=== PATIENT | female | born 1980 | race Caucasian/White ===

== ENCOUNTER 2018-01-29 12:15 | Emergency (ER) | payer MEDICARE, SELFPAY ==
[2018-01-29 12:21] VITALS: BP 112/67; PULSE 81; RESP 16; TEMP 37.1; O2SAT 97
--- NOTE | 2018-01-29 12:28 | W.ED.GENAD ---
Discharge Plan Discharge Details Chief Complaint: Urinary Primary Care Provider: Maury Ware ED Provider: Jaya Barcenas Home Meds and New Rx's Prescriptions: No Action metformin 500 MG tablet 500 mg PO BID RF: 0 fluoxetine [Prozac] 40 MG capsule 40 mg PO DAILY RF: 0 albuterol sulfate [Proventil HFA] 200 PUFF HFA aerosol inhaler 2 puff Inhalation Q4H PRN PRNRF: 0 acetaminophen-codeine [Tylenol-Codeine #3] 1 TAB tablet 1 tab PO BID PRNRF: 0 promethazine 25 MG tablet 25 mg PO PRN PRNRF: 0 baclofen 10 MG tablet 1 tab PO QID PRNRF: 0 polyethylene glycol 3350 527 GM powder 17 gm PO BID Qty: 1 RF: 0 Medical Decision Making 37-year-old female presents with 2 days of burning and frequency of urination. She is pleasant, interactive, afebrile and well-appearing. Her exam is reassuring. Differential diagnosis would include acute cystitis versus a sending urinary tract infection. Patient referred for urinalysis which is concentrated and contaminated. Her history is consistent with developing acute cystitis and I will treat her with a course of antibiotics and Pyridium. She understands course of treatment as well as return and follow-up precautions. Stable for outpatient management at this time HPI General Mode of arrival: ambulatory. Date/Time Provider Initiated Documentation: 01/29/18 12:17. Limitations to Documentation: no limitations. Information obtained by: patient. History of Present Illness 37 year old F presents to the emergency department with the chief complaint of Dysuria, described as moderate, Quality is described as burning, and is localized to the pelvis and genitals. Patient reports no radiation. Patient started experiencing this day(s) and it has been intermittent. No exacerbating factors reported . Patient notes no other symptoms.. Patient did receive the following treatments prior to arrival, none HPI Narrative: 37-year-old female with a gradual onset over 2 days time of burning and urgency with urination. No flank pain, fever, vomiting. She states that she has otherwise been well Related Data Home Medications Medication Instructions Recorded Confirmed metformin 500 mg PO BID 07/12/12 01/29/18 fluoxetine [Prozac] 40 mg PO DAILY 10/20/12 01/29/18 albuterol sulfate [Proventil HFA] 2 puff INHALATION Q4H PRN PRN 09/26/16 01/29/18 acetaminophen-codeine 1 tab PO BID PRN 01/23/17 11/01/17 [Tylenol-Codeine #3] promethazine 25 mg PO PRN PRN 01/23/17 01/29/18 baclofen 1 tab PO QID PRN 11/01/17 01/29/18 polyethylene glycol 3350 17 gm PO BID #1 btl 11/03/17 01/29/18 Previous Rx's Medication Instructions Recorded polyethylene glycol 3350 17 gm PO BID #1 btl 11/03/17 Allergies Allergy/AdvReac Type Severity Reaction Status Date / Time cephalexin monohydrate Allergy Severe Anaphylaxsi Verified 01/29/18 12:32 [From Keflex] s nitrofurantoin Allergy Severe Anaphylaxsi Verified 01/29/18 12:32 [From Macrobid] s Sulfa (Sulfonamide Allergy Severe Anaphylaxsi Verified 01/29/18 12:32 Antibiotics) s topiramate [From Topamax] Allergy Severe Anaphylaxsi Verified 01/29/18 12:32 s ibuprofen Allergy Mild Hives Verified 01/29/18 12:32 Review of Systems Review of Systems 6 systems reviewed and otherwise negative PFSH Social History Smoking/Tobacco Use Status: Never Exam Narrative Exam Narrative: GEN: awake, alert, oriented 3. Pleasant, well groomed, interactive. HEAD: Normocephalic, atraumatic ENT: Mucous membranes moist, oropharynx unremarkable, External ear exam unremarkable EYES: PERRL, EOMI NECK: Full ROM, no BOUCHRA, no menigismus CHEST/RESP: Nontender, clear to auscultation bilateral, no wheeze/rhonchi/rales CARDIOVASCULAR: RRR, no murmur, rub ivy. 2+ Rad pulse bilateral ABDOMEN: Soft, minimal suprapubic tenderness to palpation without rebound or guarding, no mass. +Bowel sounds. No flank tenderness to percussion EXT: Full ROM, no edema, no rash Neuro: Grossly normal neurologic exam, conversant, interactive. Psych: Speech fluent, thoughts congruent, affect normal
[2018-01-29 12:33] LABS: Bilirubin Negative (Negative); Blood Trace-intact (Negative); Clarity Clear; Glucose Negative (Negative); Ketones Negative (Negative); Leukocyte Esterase Negative (Negative); Nitrite Negative (Negative); Specific Gravity >= 1.030 (1.005-1.025); Urobilinogen 0.2 EU/dL (Up TO 0.2)
[2018-01-29 12:41] LABS: Bacteria Negative HPF (Negative); C & S Indicated? No; Casts Negative LPF (Negative); Crystals Negative HPF (Negative); Epithelial Cells Many HPF (Negative); Mucus Moderate (Negative); RBC 0-2 (0-2); WBC Negative HPF (0-5)
== END 2018-01-29 13:00 | disposition home or self-care (01) ==
LOC: ER 13:08
PROVIDERS: Emergency Provider Emergency Medicine; PCP Internal Medicine Sleep Medicine
DX: N30.00 Acute cystitis without hematuria (principal)
CPT/HCPCS: 81025; 99283; 81003; 81015

== ENCOUNTER 2018-05-24 09:15 | Emergency (ER) | payer MEDICARE, SELFPAY ==
[2018-05-24 09:30] VITALS: BP 125/82; PULSE 88; RESP 16; TEMP 36.9; O2SAT 98
[2018-05-24 09:39] LABS: Bilirubin Negative (Negative); Blood Large (Negative); Clarity Clear; Glucose Negative (Negative); Ketones Negative (Negative); Leukocyte Esterase Moderate (Negative); Nitrite Negative (Negative); Specific Gravity <= 1.005 (1.005-1.025); Urobilinogen 0.2 EU/dL (Up TO 0.2); pH 6.5 (5-8)
--- NOTE | 2018-05-24 09:39 | ED.GENADUL_ITS ---
Discharge Plan Disposition Patient Disposition: HOME Condition: Good Discharge Details Chief Complaint: Urinary Clinical Impression: UTI (urinary tract infection) Primary Care Provider: Vesta Madden ED Provider: Bill Dobson Home Meds and New Rx's Prescriptions: New levofloxacin 500 mg tablet 500 mg PO DAILY Qty: 14 RF: 0 No Action metformin 500 MG tablet 500 mg PO BID RF: 0 fluoxetine [Prozac] 40 MG capsule 40 mg PO DAILY RF: 0 Proventil HFA 200 PUFF HFA aerosol inhaler 2 puff Inhalation Q4H PRN PRNRF: 0 acetaminophen-codeine [Tylenol-Codeine #3] 1 TAB tablet 1 tab PO BID PRNRF: 0 promethazine 25 MG tablet 25 mg PO PRN PRNRF: 0 baclofen 10 MG tablet 1 tab PO QID PRNRF: 0 polyethylene glycol 3350 527 GM powder 17 gm PO BID PRNRF: 0 Discharge Instructions Instructions: Urinary Tract Infection in Women (ED) Additional Instructions: Please take the medication as directed. If you notice any worsening of your symptoms, or any new symptoms such as vomiting, diarrhea, fever, chills, shortness of breath, chest pain, numbness, weakness, or fainting , please return immediately to the emergency department for reevaluation. Please follow up with your primary care provider as soon as possible for reassessment and reevaluation. As always, it was a pleasure participating in your medical care today. Referrals: Maury Ware [ NON-[facility] STAFF PHYSICIAN] - Medical Decision Making This is a very pleasant 38-year-old female who presents with signs and symptoms consistent with urinary tract infection. For the last week she has had increased frequency, mild burning, mild pinkness in her urine. She denies any arely fever or chills. She denies any vomiting or diarrhea. She does not want anything for pain at this time. Patient states that this feels exactly like her previous urinary tract infections that she has had before. She has multiple allergies but has tolerated fluoroquinolones well. She denies any personal history of kidney stones. Signs and symptoms appear clinically consistent with urinary tract infection. We will evaluate urinalysis for potential UTI. 10 AM Patient's laboratory workup demonstrates negative nitrites, but positive leukocyte esterase, RBC of 10-20 and a WBC of 10-20. The patient signs and symptoms and urinalysis are clinically consistent with a urinary tract infection and clinically inconsistent with a stone, severe pyelonephritis, or other acute abdominal process. [facility] I have extensively reviewed the treatment plan and discharge instructions with the patient. I have addressed all patient concerns at this time. The patient was made aware of what symptoms to monitor for that would warrant a return to the emergency department. Discussed the plan with the patient, they demonstrate verbal understanding and agreement with our assessment and plan at this time. HPI General Date/Time Provider Initiated Documentation: 05/24/18 09:18 . HPI Narrative: This is a 38-year-old female with a past medical history of small bowel obstruction, incisional hernia of the anterior abdominal wall, and previous urinary tract infections who presents today for signs and symptoms concerning for UTI. The patient states that for the last week she has had increase in urinary frequency, mild burning, hematuria. She denies any technical fever, she denies any abdominal pain, vomiting, or diarrhea. She denies a history of kidney stones. She states that the urine is slightly pink, but she denies any arely hematuria. She has no other complaints or modifying factors at this time. She has not taken any Tylenol or Motrin. Related Data Home Medications Medication Instructions Recorded Confirmed metformin 500 mg PO BID 07/12/12 05/24/18 fluoxetine [Prozac] 40 mg PO DAILY 10/20/12 05/24/18 Proventil HFA 2 puff INHALATION Q4H PRN PRN 09/26/16 05/24/18 acetaminophen-codeine 1 tab PO BID PRN 01/23/17 05/24/18 [Tylenol-Codeine #3] promethazine 25 mg PO PRN PRN 01/23/17 05/24/18 baclofen 1 tab PO QID PRN 11/01/17 05/24/18 levofloxacin 500 mg PO DAILY #14 tab 05/24/18 polyethylene glycol 3350 17 gm PO BID PRN 05/24/18 05/24/18 Previous Rx's Medication Instructions Recorded levofloxacin 500 mg PO DAILY #14 tab 05/24/18 Allergies Allergy/AdvReac Type Severity Reaction Status Date / Time cephalexin monohydrate Allergy Severe Anaphylaxsi Verified 05/24/18 09:33 [From Jotky] s nitrofurantoin Allergy Severe Anaphylaxsi Verified 05/24/18 09:33 [From Macrobid] s Sulfa (Sulfonamide Allergy Severe Anaphylaxsi Verified 05/24/18 09:33 Antibiotics) s topiramate [From Topamax] Allergy Severe Anaphylaxsi Verified 05/24/18 09:33 s ibuprofen Allergy Mild Hives Verified 05/24/18 09:33 General Stated Complaint: Urinary NICOLE: 3 Review of Systems Review of Systems All systems reviewed & are unremarkable except as noted in HPI and below PFSH Social History Smoking/Tobacco Use Status: Never Exam Narrative Exam Narrative: 1.Const: Well-nourished, Well-developed, appearing stated age 2.Eyes: PERRL, no conjunctival injection, and symmetrical lids. 3.ENT: Atraumatic external nose and ears. Moist MM. Neck: Symmetric, trachea midline, No thyromegaly. 4.CVS: +S1/S2, No murmurs or gallops. Peripheral pulses 2+ and equal in all extremities. Brisk capillary refill in all extremities. 5.RESP: Unlabored respiratory effort. Clear to auscultation bilaterally. No wheezes rales or rhonchi 6.GI: Soft, Nontender/Nondistended, No hepatosplenomegaly. No guarding or rebound. Minimal left CVA tenderness, no right CVA tenderness. No evidence of an acute abdomen. Minimal pressure on palpation of the pelvis. 7.MSK: Normocephalic/Atraumatic, Extremities w/o deformity or ttp No cyanosis or clubbing, Normal movement of all extremities 8.Skin: Warm, Dry. No rashes or lesions. 9.Neuro: [facility] psychiatrist II-XII grossly intact. Sensation grossly intact, no focal neurologic deficits. 10.Psych: (AAO) x3. Appropriate mood and affect Course Vital Signs Temperature 36.9 C 05/24/18 09:30 Pulse 88 05/24/18 09:30 Respiratory Rate 16 05/24/18 09:30 Blood Pressure 125/82 05/24/18 09:30 Pulse Oximetry 98 05/24/18 09:30 Temperature 36.9 C 05/24/18 09:30 Temperature Source Oral 05/24/18 09:30 Pulse 88 05/24/18 09:30 Respiratory Rate 16 05/24/18 09:30 Blood Pressure 125/82 05/24/18 09:30 Pulse Oximetry 98 05/24/18 09:30 Oxygen Delivery Method Room Air 05/24/18 09:30 Oxygen Flow Rate 0 05/24/18 09:30 Pain Level 8 05/24/18 09:30
[2018-05-24 09:54] LABS: Bacteria Few HPF (Negative); C & S Indicated? No/Sq. Contamination; Casts Negative LPF (Negative); Crystals Negative HPF (Negative); Epithelial Cells Many HPF (Negative); Mucus Trace (Negative); Other Cells Negative (Negative)
[2018-05-24 10:07] VITALS: BP 111/73; PULSE 85; RESP 15; TEMP 37.2; O2SAT 95
== END 2018-05-24 10:09 | disposition home or self-care (01) ==
LOC: ER 09:41
PROVIDERS: Emergency Provider Student in an Organized Health Care Education/Training Program; PCP Nurse Practitioner Family
DX: N39.0 Urinary tract infection, site not specified (principal); Z87.440 Personal history of urinary (tract) infections
CPT/HCPCS: 99283; 81003; 81015

== ENCOUNTER 2018-07-18 07:20 | Emergency (ER) | payer MEDICARE, SELFPAY ==
[2018-07-18 07:24] VITALS: BP 129/82; PULSE 102; RESP 20; TEMP 36.8; O2SAT 98
--- NOTE | 2018-07-18 07:26 | DI.CT_ITS ---
SYMPTOM/DIAGNOSIS: TRAUMA, ABD/UPPER BACK/CHEST/NECK PAIN CERVICAL SPINE CT: Multiple contiguous axial images of the cervical spine were obtained. Sagittal and coronal reformatted images were evaluated on the Siemens work station. There is straightening of the normal cervical lordosis. This may be due to muscle spasm or patient positioning. No acute fractures or subluxations are seen. The prevertebral soft tissues are unremarkable. IMPRESSION: No acute fractures or subluxations in the cervical spine. NONCONTRAST HEAD CT: Comparison is made with 03/20/16. 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 This finding is stable. There is also again noted a ventriculoperitoneal shunt in place. No acute intracranial hemorrhage or midline shift or mass effect is present. There is no evidence of a calvarial fracture. The visualized paranasal sinuses are clear. The mastoid air cells are well pneumatized. IMPRESSION: No acute intracranial process. The findings were discussed with the ER on the date of the examination. CHEST/ABDOMEN AND PELVIC CT: CT scan of the chest, abdomen and pelvis was performed following the uneventful administration of intravenous contrast material. Comparison is made with 11/01/17. ABDOMEN AND PELVIS: The liver is normal in size. There are a few tiny hypodense lesions in the liver. They are too small for further characterization but likely reflect small cysts. No suspicious hepatic mass is seen. The portal, superior mesenteric and splenic veins are patent. The gallbladder is negative. There is no biliary ductal dilatation. The pancreas is unremarkable as are the spleen and adrenal glands. The kidneys show normal and symmetric enhancement. No evidence of a solid renal mass or obstruction. The urinary bladder is intact. The reproductive organs are unremarkable. The abdominal aorta is of normal caliber and intact. No aneurysmal dilatation is seen. There is a trace amount of free fluid in the pelvis which is likely physiologic. No pneumoperitoneum is identified. The bowel shows no evidence of obstruction or inflammation. There is again seen infiltration in the root of the mesentery. This appears grossly unchanged compared to 11/01/17. This may represent confluent adenopathy. No fracture is identified. Ventriculoperitoneal shunt tubing is again noted. IMPRESSION: No evidence of an acute abdominal or pelvic organ injury. No acute fracture is identified. CHEST: The thoracic aorta is of normal caliber. Heart size is within normal limits. No significant pericardial effusion is seen. No significant thoracic adenopathy is present. No pleural effusion or pneumothorax is identified. No acute infiltrates are seen in the lungs. The tracheobronchial tree is unremarkable. No fracture is identified. IMPRESSION: No evidence of acute thoracic injury. The findings were discussed the ER on the date of the examination.
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
[2018-07-18] MEDS: fentaNYL 100 MCG/2 ML VIAL 50 MCG IVP (07:37)
[2018-07-18] MEDS: Normal Saline Flush 10 ML SYR IVP ×2 (07:38→09:32)
[2018-07-18 07:48] LABS: Abs Immature Grans 0.01 k/cumm (0.0-0.09); Absolute Basophil Count 0.04 k/cumm (0.0-0.2); Absolute Eosinophil Count 0.25 k/cumm (0.0-0.7); Absolute Lymphocyte Count 1.15 k/cumm (1.2-3.4); Absolute Monocyte Count 0.75 k/cumm (0.11-0.7); Absolute Neutrophil Count 4.23 k/cumm (1.2-6.7); Basophils % 0.6; Eosinophils % 3.9; HCT 42.6 % (36.0-46.0); HGB 13.9 g/dL (12.0-15.5); Immature Grans % 0.2; Lymphocytes % 17.9; Mean Corp. HGB Concentration 32.6 g/dL (32.0-36.0); Mean Corpuscular Hemoglobin 29.1 pg (27.0-33.0); Mean Corpuscular Volume 89.3 fL (80-95); Mean Platelet Volume 10.2 fL (8.0-11.0); Monocytes % 11.7; Neutrophils % 65.7; Platelet Count 262 x1000/uL (130-400); RBC 4.77 m/cumm (4.00-5.20); RBC Distribution Width 12.5 % (11.7-14.6); White Blood Cell Count 6.43 k/cumm (4.4-10.8)
[2018-07-18] MEDS: Omnipaque 350 MG/ML 100 ML BTL IJ (07:58)
[2018-07-18 08:01] LABS: PTT Activated 21.9 sec (21.0-31.4); Prothrombin Time 10.3 sec (9.3-11.0)
[2018-07-18 08:13] LABS: ALT 95 U/L (12-78); AST 50 U/L (15-37); Albumin 3.5 g/dL (3.4-5.0); Alkaline Phosphatase 125 U/L (46-116); BUN 12 mg/dL (7-18); Bilirubin, Total 0.3 mg/dL (0.2-1.0); CREATININE 0.88 mg/dL (0.55-1.02); Calcium 8.6 mg/dL (8.5-10.1); Chloride 105 mmol/L (98-107); Glucose 105 mg/dL (70-100); Lipase 186 U/L (73-393); Magnesium 1.7 mg/dL (1.8-2.4); Potassium 3.8 mmol/L (3.5-5.1); Sodium 141 mmol/L (136-145)
[2018-07-18 08:20] VITALS: BP 135/89; PULSE 103; O2SAT 97
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
--- NOTE | 2018-07-18 09:01 | NUR.NOTE ---
Pertinent report received from Jose THOMAS. Financial Coach assumes care of Ms. Moya at 0900. Patient alert, skin warm/dry/pink. No WOB. Assisted onto bedpan per her request. Awaiting CT results.Nursing Note:
[2018-07-18 09:16] VITALS: BP 134/84; PULSE 84; RESP 18; TEMP 36.9; O2SAT 96
[2018-07-18 09:18] VITALS: BP 134/84; PULSE 84; RESP 18; TEMP 36.9; O2SAT 96
[2018-07-18 09:30] LABS: Troponin I < 0.02 ng/mL (0.00-0.06)
[2018-07-18] MEDS: Acetaminophen 325 MG TAB 650 MG PO (09:31)
[2018-07-18 10:10] VITALS: BP 127/74; PULSE 94; RESP 22; TEMP 36.8; O2SAT 94
[2018-07-18 10:14] VITALS: BP 127/74; PULSE 94; RESP 22; TEMP 36.8; O2SAT 94
--- NOTE | 2018-07-18 11:13 | NUR.NOTE ---
Addendum entered by Claudine Gale 07/18/18 11:14: Please note: Patient ambulated with teletypewriter operator in ED farias to back farias double doors and back at 0945. Gait steady, she denied difficulties, denied dizziness. Walked independently with standby assist only from teletypewriter operator. Original Note: Nursing Note:
== END 2018-07-18 10:18 | disposition home or self-care (01) ==
PROVIDERS: Emergency Medicine; Emergency Provider Physician Assistant; PCP Nurse Practitioner Family
DX: S16.1XXA Strain of muscle, fascia and tendon at neck level, initial encounter (principal); M54.5 Low back pain; R10.814 Left lower quadrant abdominal tenderness; R07.89 Other chest pain; R51 Headache; M25.551 Pain in right hip; M25.552 Pain in left hip; V47.5XXA Car driver injured in collision with fixed or stationary object in traffic accident, initial encounter; Z98.2 Presence of cerebrospinal fluid drainage device; E11.42 Type 2 diabetes mellitus with diabetic polyneuropathy
CPT/HCPCS: 36415; 74177; 80053; 80076; 83690; 93005; 96375; 99285; 70450; 71260; 72125; 83735; 84484; 85025; 85610; 85730; 93010; 99284; J3010; J3490

== ENCOUNTER 2018-08-09 12:23 | Emergency (ER) | payer MEDICARE, SELFPAY ==
[2018-08-09 12:30] VITALS: BP 119/75; PULSE 82; RESP 18; TEMP 36.6; O2SAT 95
--- NOTE | 2018-08-09 12:54 | W.ED.GENAD ---
Discharge Plan Disposition Patient Disposition: HOME Condition: Fair Discharge Details Chief Complaint: DentalOral Clinical Impression: Dental infection Primary Care Provider: Vesta Madden ED Provider: Cady Gale Home Meds and New Rx's Prescriptions: New penicillin V potassium 500 mg tablet 500 mg PO QID Qty: 28 RF: 0 Continued metformin 500 MG tablet 500 mg PO BID RF: 0 fluoxetine [Prozac] 40 MG capsule 40 mg PO DAILY RF: 0 albuterol sulfate [Proventil HFA] 200 PUFF HFA aerosol inhaler 2 puff Inhalation Q4H PRN PRNRF: 0 acetaminophen-codeine [Tylenol-Codeine #3] 1 TAB tablet 1 tab PO BID PRNRF: 0 promethazine 25 MG tablet 25 mg PO PRN PRNRF: 0 baclofen 10 MG tablet 1 tab PO QID PRNRF: 0 polyethylene glycol 3350 527 GM powder 17 gm PO BID PRNRF: 0 Discharge Instructions Instructions: Dental Abscess (ED) Additional Instructions: Encourage hydration. Tylenol and ibuprofen as needed for discomfort. Penicillin as prescribed. If you have any reaction please stop this immediately. Even if symptoms improve, please take the entire course. He will need definitive care with a dentist, attached is a list of local dentist. Please call to schedule appointment as soon as possible. If you develop any new or worsening symptoms seek care urgently once again Referrals: Vesta Madden [Primary Care Provider] - Discharge Data Discharge Date/Time-TO BE ENTERED AT DEPARTURE: 08/09/18 13:12 Medical Decision Making Patient is a 38-year-old female presenting today with chief complaint of dental pain at the #8 tooth that has been there over the past 4 days. She reports the pain is progressive and getting worse. She states that she had a fever last night with a T-max of 101 ?F. On exam, she appears nontoxic. She does have a physical carry at the affected tooth with pain on both the lingual and buccal side of the tooth with palpation. Slight erythema along the buccal side. No evidence of an abscess is noted. Patient has not been evaluated by dentist in quite some time. We will give her a list of local dentists. While patient does lift Keflex as an anaphylactic allergy, she reports that she has had penicillin without any reaction. Will prescribe Penicillin. I encouraged hydration. Advised Tylenol and/or ibuprofen as needed for discomfort. She understands she will need definitive care with a dentist. Advised that she seek care with any new or worsening symptoms more urgently. All of her questions and concerns were addressed and she is in agreement this plan HPI General Mode of arrival: ambulatory. Date/Time Provider Initiated Documentation: 08/09/18 12:53. Limitations to Documentation: no limitations. Information obtained by: patient and RN notes reviewed. History of Present Illness 38 year old F presents to the emergency department with the chief complaint of upper front dental pain, described as moderate, with intensity rated at 5. Quality is described as aching, and is localized to the mouth. Patient reports no radiation. Patient started experiencing this day(s) (4) and it has been constant. No relieving factors improve symptom(s), Eating worsens symptoms . Patient notes fever/chills (reports feeling warm yesterday). Patient did receive the following treatments prior to arrival, none Related Data Home Medications Medication Instructions Recorded Confirmed metformin 500 mg PO BID 07/12/12 07/18/18 fluoxetine [Prozac] 40 mg PO DAILY 10/20/12 07/18/18 albuterol sulfate [Proventil HFA] 2 puff INHALATION Q4H PRN PRN 09/26/16 07/18/18 acetaminophen-codeine 1 tab PO BID PRN 01/23/17 07/18/18 [Tylenol-Codeine #3] promethazine 25 mg PO PRN PRN 01/23/17 07/18/18 baclofen 1 tab PO QID PRN 11/01/17 07/18/18 polyethylene glycol 3350 17 gm PO BID PRN 05/24/18 07/18/18 penicillin V potassium 500 mg PO QID #28 tab 08/09/18 Previous Rx's Medication Instructions Recorded penicillin V potassium 500 mg PO QID #28 tab 08/09/18 Allergies Allergy/AdvReac Type Severity Reaction Status Date / Time cephalexin monohydrate Allergy Severe Anaphylaxsi Verified 07/18/18 07:27 [From Keflex] s nitrofurantoin Allergy Severe Anaphylaxsi Verified 07/18/18 07:27 [From Macrobid] s Sulfa (Sulfonamide Allergy Severe Anaphylaxsi Verified 07/18/18 07:27 Antibiotics) s topiramate [From Topamax] Allergy Severe Anaphylaxsi Verified 07/18/18 07:27 s ibuprofen Allergy Mild Hives Verified 07/18/18 07:27 General Stated Complaint: DentalOral NICOLE: 4 Review of Systems Constitutional Reports as per HPI, Denies chills, Denies fatigue, Reports fever(s), Denies headache(s) and Denies poor appetite Eyes Denies change in vision and Denies irritation ENT Reports as per HPI, Reports dental pain, Denies dysphagia, Denies dizziness, Denies dry mouth, Denies ear discharge, Denies otalgia, Reports facial pain, Denies headache(s), Denies hoarseness, Denies lip swelling, Denies nasal congestion, Denies odynophagia and Denies sore throat Cardiovascular Reports as per HPI and Denies chest pain Respiratory Reports as per HPI and Denies cough Gastrointestinal Reports as per HPI, Denies dysphagia, Denies nausea, Denies odynophagia and Denies vomiting Integumentary/Breasts Reports as per HPI, Denies erythema, Denies rash and Denies skin pain Neurologic Reports as per HPI, Denies dizziness and Denies headache(s) Endocrine Denies fatigue Allergic/Immunologic Denies lip swelling [facility] Social History Smoking/Tobacco Use Status: Never Alcohol Intake: never Drug use: Never Substance use type: does not use Do you feel safe at home: Yes Do you feel safe in your relationship?: Yes Exam Const General: cooperative, healthy appearing, comfortable, no acute distress, well developed and well groomed Nutritional Appearance: average body habitus and well nourished Orientation: alert and awake [facility] Head: normal to inspection, normocephalic and atraumatic Ears: hearing grossly normal bilaterally, external ears normal and TM's normal bilaterally General nose exam: external nose normal and nares normal Face and sinus: normal facial exam, sinuses nontender and face symmetric Mouth: oral mucosae normal, lip normal, tongue normal, oropharynx normal, moist mucous membranes, no audible dysphonia and no drooling Teeth and gingiva: abnormal dentition and caries (noted at the #8 tooth with erythema along buccal surface) Throat: posterior oropharynx normal, tonsils normal and uvula midline Eyes General: appearance normal, both eyes and all related structures Neck Neck: normal visual inspection, full ROM, no lymphadenopathy, supple and no anterior neck swelling Resp Effort & Inspection: normal respiratory effort, able to speak in complete sentences and no respiratory distress Auscultation: clear to auscultation bilaterally, no rales, no rhonchi and no wheezes Cardio Rate: regular rate Rhythm: regular rhythm Heart Sounds: S1 normal and S2 normal Skin General skin exam: no rashes or lesions noted Trauma: no lacerations or abrasions Neuro General: alert and awake Cognition: normal cognition Speech: speech normal Gait: normal gait Psych Appearance: grossly normal and well kempt Mental Status: mental status grossly normal Speech and Movement: speech and movement normal Course Vital Signs Temperature 36.6 C 08/09/18 12:30 Pulse 82 08/09/18 12:30 Respiratory Rate 18 08/09/18 12:30 Blood Pressure 119/75 08/09/18 12:30 Pulse Oximetry 95 08/09/18 12:30 Temperature 36.6 C 08/09/18 12:30 Temperature Source Temporal Artery Scan 08/09/18 12:30 Pulse 82 08/09/18 12:30 Respiratory Rate 18 08/09/18 12:30 Blood Pressure 119/75 08/09/18 12:30 Blood Pressure Position Sitting 08/09/18 12:30 Pulse Oximetry 95 08/09/18 12:30 Oxygen Delivery Method Room Air 08/09/18 12:30 Oxygen Flow Rate 0 08/09/18 12:30 Pain Level 6 08/09/18 12:30
--- NOTE | 2018-08-09 13:01 | ED.GENADUL_ITS ---
Discharge Plan Disposition Patient Disposition: HOME Condition: Fair Discharge Details Chief Complaint: DentalOral Clinical Impression: Dental infection Primary Care Provider: Vesta Madden ED Provider: Cady Gale Home Meds and New Rx's Prescriptions: New penicillin V potassium 500 mg tablet 500 mg PO QID Qty: 28 RF: 0 Continued metformin 500 MG tablet 500 mg PO BID RF: 0 fluoxetine [Prozac] 40 MG capsule 40 mg PO DAILY RF: 0 albuterol sulfate [Proventil HFA] 200 PUFF HFA aerosol inhaler 2 puff Inhalation Q4H PRN PRNRF: 0 acetaminophen-codeine [Tylenol-Codeine #3] 1 TAB tablet 1 tab PO BID PRNRF: 0 promethazine 25 MG tablet 25 mg PO PRN PRNRF: 0 baclofen 10 MG tablet 1 tab PO QID PRNRF: 0 polyethylene glycol 3350 527 GM powder 17 gm PO BID PRNRF: 0 Discharge Instructions Instructions: Dental Abscess (ED) Additional Instructions: Encourage hydration. Tylenol and ibuprofen as needed for discomfort. Penicillin as prescribed. If you have any reaction please stop this immediately. Even if symptoms improve, please take the entire course. He will need definitive care with a dentist, attached is a list of local dentist. Please call to schedule appointment as soon as possible. If you develop any new or worsening symptoms seek care urgently once again Referrals: Vesta Madden [Primary Care Provider] - Discharge Data Discharge Date/Time-TO BE ENTERED AT DEPARTURE: 08/09/18 13:12 Medical Decision Making Patient is a 38-year-old female presenting today with chief complaint of dental pain at the #8 tooth that has been there over the past 4 days. She reports the pain is progressive and getting worse. She states that she had a fever last night with a T-max of 101 ?F. On exam, she appears nontoxic. She does have a physical carry at the affected tooth with pain on both the lingual and buccal side of the tooth with palpation. Slight erythema along the buccal side. No evidence of an abscess is noted. Patient has not been evaluated by dentist in quite some time. We will give her a list of local dentists. While patient does lift Keflex as an anaphylactic allergy, she reports that she has had penicillin without any reaction. Will prescribe Penicillin. I encouraged hydration. Advised Tylenol and/or ibuprofen as needed for discomfort. She understands she will need definitive care with a dentist. Advised that she seek care with any new or worsening symptoms more urgently. All of her questions and concerns were addressed and she is in agreement this plan HPI General Mode of arrival: ambulatory . Date/Time Provider Initiated Documentation: 08/09/18 12:53 . Limitations to Documentation: no limitations . Information obtained by: patient and RN notes reviewed . History of Present Illness 38 year old F presents to the emergency department with the chief complaint of upper front dental pain, described as moderate, with intensity rated at 5. Quality is described as aching, and is localized to the mouth. Patient reports no radiation. Patient started experiencing this day(s) (4) and it has been constant. No relieving factors improve symptom(s), Eating worsens symptoms . Patient notes fever/chills (reports feeling warm yesterday). Patient did receive the following treatments prior to arrival, none Related Data Home Medications Medication Instructions Recorded Confirmed metformin 500 mg PO BID 07/12/12 07/18/18 fluoxetine [Prozac] 40 mg PO DAILY 10/20/12 07/18/18 albuterol sulfate [Proventil HFA] 2 puff INHALATION Q4H PRN PRN 09/26/16 07/18/18 acetaminophen-codeine 1 tab PO BID PRN 01/23/17 07/18/18 [Tylenol-Codeine #3] promethazine 25 mg PO PRN PRN 01/23/17 07/18/18 baclofen 1 tab PO QID PRN 11/01/17 07/18/18 polyethylene glycol 3350 17 gm PO BID PRN 05/24/18 07/18/18 penicillin V potassium 500 mg PO QID #28 tab 08/09/18 Previous Rx's Medication Instructions Recorded penicillin V potassium 500 mg PO QID #28 tab 08/09/18 Allergies Allergy/AdvReac Type Severity Reaction Status Date / Time cephalexin monohydrate Allergy Severe Anaphylaxsi Verified 07/18/18 07:27 [From Keflex] s nitrofurantoin Allergy Severe Anaphylaxsi Verified 07/18/18 07:27 [From Macrobid] s Sulfa (Sulfonamide Allergy Severe Anaphylaxsi Verified 07/18/18 07:27 Antibiotics) s topiramate [From Topamax] Allergy Severe Anaphylaxsi Verified 07/18/18 07:27 s ibuprofen Allergy Mild Hives Verified 07/18/18 07:27 General Stated Complaint: DentalOral NICOLE: 4 Review of Systems Constitutional Reports as per HPI, Denies chills, Denies fatigue, Reports fever(s), Denies headache(s) and Denies poor appetite Eyes Denies change in vision and Denies irritation ENT Reports as per HPI, Reports dental pain, Denies dysphagia, Denies dizziness, Denies dry mouth, Denies ear discharge, Denies otalgia, Reports facial pain, Denies headache(s), Denies hoarseness, Denies lip swelling, Denies nasal congestion, Denies odynophagia and Denies sore throat Cardiovascular Reports as per HPI and Denies chest pain Respiratory Reports as per HPI and Denies cough Gastrointestinal Reports as per HPI, Denies dysphagia, Denies nausea, Denies odynophagia and Denies vomiting Integumentary/Breasts Reports as per HPI, Denies erythema, Denies rash and Denies skin pain Neurologic Reports as per HPI, Denies dizziness and Denies headache(s) Endocrine Denies fatigue Allergic/Immunologic Denies lip swelling [facility] Social History Smoking/Tobacco Use Status: Never Alcohol Intake: never Drug use: Never Substance use type: does not use Do you feel safe at home: Yes Do you feel safe in your relationship?: Yes Exam Const General: cooperative, healthy appearing, comfortable, no acute distress, well developed and well groomed Nutritional Appearance: average body habitus and well nourished Orientation: alert and awake [facility] Head: normal to inspection, normocephalic and atraumatic Ears: hearing grossly normal bilaterally, external ears normal and TM's normal bilaterally General nose exam: external nose normal and nares normal Face and sinus: normal facial exam, sinuses nontender and face symmetric Mouth: oral mucosae normal, lip normal, tongue normal, oropharynx normal, moist mucous membranes, no audible dysphonia and no drooling Teeth and gingiva: abnormal dentition and caries (noted at the #8 tooth with e rythema along buccal surface) Throat: posterior oropharynx normal, tonsils normal and uvula midline Eyes General: appearance normal, both eyes and all related structures Neck Neck: normal visual inspection, full ROM, no lymphadenopathy, supple and no anterior neck swelling Resp Effort & Inspection: normal respiratory effort, able to speak in complete sentences and no respiratory distress Auscultation: clear to auscultation bilaterally, no rales, no rhonchi and no wheezes Cardio Rate: regular rate Rhythm: regular rhythm Heart Sounds: S1 normal and S2 normal Skin General skin exam: no rashes or lesions noted Trauma: no lacerations or abrasions Neuro General: alert and awake Cognition: normal cognition Speech: speech normal Gait: normal gait Psych Appearance: grossly normal and well kempt Mental Status: mental status grossly normal Speech and Movement: speech and movement normal Course Vital Signs Temperature 36.6 C 08/09/18 12:30 Pulse 82 08/09/18 12:30 Respiratory Rate 18 08/09/18 12:30 Blood Pressure 119/75 08/09/18 12:30 Pulse Oximetry 95 08/09/18 12:30 Temperature 36.6 C 08/09/18 12:30 Temperature Source Temporal Artery Scan 08/09/18 12:30 Pulse 82 08/09/18 12:30 Respiratory Rate 18 08/09/18 12:30 Blood Pressure 119/75 08/09/18 12:30 Blood Pressure Position Sitting 08/09/18 12:30 Pulse Oximetry 95 08/09/18 12:30 Oxygen Delivery Method Room Air 08/09/18 12:30 Oxygen Flow Rate 0 08/09/18 12:30 Pain Level 6 08/09/18 12:30
== END 2018-08-09 13:12 | disposition home or self-care (01) ==
PROVIDERS: Emergency Provider Physician Assistant; PCP Nurse Practitioner Family
DX: K04.7 Periapical abscess without sinus (principal)
CPT/HCPCS: 99283

== ENCOUNTER 2018-09-07 10:42 | Emergency (ER) | payer MEDICARE, SELFPAY ==
[2018-09-07 10:45] VITALS: BP 146/89; PULSE 78; RESP 20; TEMP 36.6; O2SAT 99
--- NOTE | 2018-09-07 10:49 | ED.GENADUL_ITS ---
Discharge Plan Disposition Patient Disposition: HOME Condition: Stable Discharge Details Chief Complaint: Urinary Clinical Impression: UTI (urinary tract infection) Primary Care Provider: Vesta Madden ED Provider: Damaris Bishop Home Meds and New Rx's Prescriptions: New ciprofloxacin HCl [Cipro] 250 mg tablet 250 mg PO BID 3 Days Qty: 6 RF: 0 Continued metformin 500 MG tablet 500 mg PO BID RF: 0 fluoxetine [Prozac] 40 MG capsule 40 mg PO DAILY RF: 0 albuterol sulfate [Proventil HFA] 200 PUFF HFA aerosol inhaler 2 puff Inhalation Q4H PRN PRNRF: 0 acetaminophen-codeine [Tylenol-Codeine #3] 1 TAB tablet 1 tab PO BID PRNRF: 0 promethazine 25 MG tablet 25 mg PO PRN PRNRF: 0 baclofen 10 MG tablet 1 tab PO QID PRNRF: 0 polyethylene glycol 3350 527 GM powder 17 gm PO BID PRNRF: 0 Discharge Instructions Instructions: Urinary Tract Infection in Women (ED) Additional Instructions: Take the antibiotics until finished. Follow up with your primary care doctor in 1 week for re-evaluation. Return to the emergency department with any worsening or new concerning symptoms. Discharge Data Discharge Physician: Damaris Bishop Medical Decision Making 38-year-old female presents with dysuria, hematuria, urinary frequency and urgency for the past 4 days. Has a history of UTIs and states this feels similar. Afebrile. Patient appears nontoxic. Texting on phone in room. Urinalysis notes 3-5 WBCs and appears contaminated. An additional sample was obtained and sent for urine culture. Urine test negative. Patient is a history of anaphylaxis to sulfa, Keflex and Macrobid but states she is able to tolerate Cipro. Prescription for Cipro given. Patient instructed to drink plenty of fluids. She is instructed to follow-up with primary care doctor for reevaluation and to return here if worse. Medical Records Medical records reviewed: Yes I reviewed the patient's medical records. Lab Data Lab results reviewed: Yes I reviewed the patient's lab results. 09/07/18 11:23 Urine - Voided Urine Culture - Pending Laboratory Tests Range/Units 09/07/18 10:48 Urine Color (Yellow) Yellow Urine Clarity Clear Urine pH (5-8) 7.0 Ur Specific [place] (1.005-1.025) 1.020 Urine Protein (Negative) mg/dL Negative Urine Ketones (Negative) mg/dL Negative Urine Blood (Negative) Trace-lysed H Urine Nitrite (Negative) Negative Urine Bilirubin (Negative) Negative Urine Urobilinogen (Up TO 0.2) EU/dL 0.2 Ur Leukocyte Esterase (Negative) Trace H Urine RBC (0-2) 5-10 H Urine WBC (0-5) HPF 3-5 Ur Epithelial Cells (Negative) HPF Moderate Urine Crystals (Negative) HPF Negative Urine Bacteria (Negative) HPF Few Urine Casts (Negative) LPF Negative Urine Mucus (Negative) Trace Urine Other (Negative) Moderate renal Ur Culture Indicated? No/sq. contamination Urine Glucose (Negative) mg/dL Negative HPI General Mode of arrival: ambulatory . Date/Time Provider Initiated Documentation: 09/07/18 10:42 . Limitations to Documentation: no limitations . Information obtained by: patient . HPI Narrative: Patient is a 38-year-old female presents with urinary frequency, urgency, dysuria, hematuria, lower abdominal pain for the past 4 days. Patient has a history of urinary tract infection and states symptoms feel similar to that. She denies any fever, vomiting or back pain. Related Data Home Medications Medication Instructions Recorded Confirmed metformin 500 mg PO BID 07/12/12 09/07/18 fluoxetine [Prozac] 40 mg PO DAILY 10/20/12 09/07/18 albuterol sulfate [Proventil HFA] 2 puff INHALATION Q4H PRN PRN 09/26/16 09/07/18 acetaminophen-codeine 1 tab PO BID PRN 01/23/17 09/07/18 [Tylenol-Codeine #3] promethazine 25 mg PO PRN PRN 01/23/17 09/07/18 baclofen 1 tab PO QID PRN 11/01/17 09/07/18 polyethylene glycol 3350 17 gm PO BID PRN 05/24/18 09/07/18 ciprofloxacin HCl [Cipro] 250 mg PO BID 3 Days #6 tab 09/07/18 Previous Rx's Medication Instructions Recorded ciprofloxacin HCl [Cipro] 250 mg PO BID 3 Days #6 tab 09/07/18 Allergies Allergy/AdvReac Type Severity Reaction Status Date / Time cephalexin monohydrate Allergy Severe Anaphylaxsi Verified 09/07/18 10:52 [From Keflex] s nitrofurantoin Allergy Severe Anaphylaxsi Verified 09/07/18 10:52 [From Macrobid] s Sulfa (Sulfonamide Allergy Severe Anaphylaxsi Verified 09/07/18 10:52 Antibiotics) s topiramate [From Topamax] Allergy Severe Anaphylaxsi Verified 09/07/18 10:52 s ibuprofen Allergy Mild Hives Verified 09/07/18 10:52 General Stated Complaint: Urinary NICOLE: 4 Review of Systems Review of Systems All systems reviewed & are unremarkable except as noted in HPI and below Constitutional Reports as per HPI, Denies chills and Denies fever(s) Eyes Denies blurry vision ENT Denies dizziness, Denies sore throat and Denies throat swelling Cardiovascular Denies chest pain and Denies dyspnea Respiratory Denies cough and Denies dyspnea Gastrointestinal Reports abdominal pain, Denies diarrhea and Denies vomiting Genitourinary Reports hematuria, Reports urinary frequency, Reports dysuria, Reports urinary hesitancy and Reports urinary urgency Musculoskeletal Denies back pain and Denies numbness Integumentary/Breasts Denies lesions and Denies rash Neurologic Denies dizziness, Denies focal weakness and Denies numbness Allergic/Immunologic Denies throat swelling PFS Medical History PCOS (polycystic ovarian syndrome) (Acute) Small bowel obstruction (Acute) Asthma (Chronic) Diabetes (Chronic) Migraine (Chronic) Surgical History History of brain surgery (Acute) History of placement of ear tubes (Acute) Social History Smoking/Tobacco Use Status: Never Alcohol Intake: never Drug use: Never Substance use type: does not use Do you feel safe at home: Yes Do you feel safe in your relationship?: Yes Exam Const General: cooperative, healthy appearing and no acute distress HENMT Head: normal to inspection Face and sinus: normal facial exam Eyes General: appearance normal, both eyes and all related structures Neck Neck: normal visual inspection and No submandibular swelling Lymphatic: no lymphadenopathy noted Chest Chest: normal inspection of the chest and no tenderness Resp Effort & Inspection: normal respiratory effort and able to speak in complete sentences Auscultation: clear to auscultation bilaterally Cardio Rate: regular rate Rhythm: regular rhythm GI Inspection: normal to inspection Palpation: soft, not firm, not rigid and nontender Auscultation: normal bowel sounds Back/Spine/Pelvis Back: no CVA tenderness Skin General skin exam: no rashes or lesions noted Neuro General: alert, awake and oriented x3 Cognition: normal cognition Speech: speech normal Motor: muscle tone normal throughout Sensory Exam: no sensory deficits noted Extrem General: normal to inspection, full ROM and no edema Psych Appearance: grossly normal Mental Status: mental status grossly normal Speech and Movement: speech and movement normal Affect: normal affect Course Respiratory Effort Non-Labored 09/07/18 10:45
[2018-09-07 10:56] LABS: Bilirubin Negative (Negative); Blood Trace-lysed (Negative); Clarity Clear; Glucose Negative (Negative); Ketones Negative (Negative); Leukocyte Esterase Trace (Negative); Nitrite Negative (Negative); Urobilinogen 0.2 EU/dL (Up TO 0.2)
[2018-09-07 11:08] LABS: Epithelial Cells Moderate HPF (Negative); Other Cells Moderate Renal (Negative)
[2018-09-07 11:09] LABS: Bacteria Few HPF (Negative); C & S Indicated? No/Sq. Contamination; Casts Negative LPF (Negative); Crystals Negative HPF (Negative); Mucus Trace (Negative)
[2018-09-07 16:49] VITALS: BP 146/89; PULSE 78; RESP 20; TEMP 36.6; O2SAT 99
== END 2018-09-07 11:30 | disposition home or self-care (01) ==
LOC: ER 11:18
PROVIDERS: Emergency Provider Physician Assistant; PCP Nurse Practitioner Family
DX: N39.0 Urinary tract infection, site not specified (principal)
CPT/HCPCS: 99283; 81003; 81015; 87086

== ENCOUNTER 2019-05-17 12:29 | Emergency (ER) | payer MEDICARE, SELFPAY ==
[2019-05-17 12:34] VITALS: BP 133/78; PULSE 99; RESP 14; TEMP 37.1; O2SAT 97
--- NOTE | 2019-05-17 13:39 | ED.GENADUL_ITS ---
Discharge Plan Disposition Patient Disposition: HOME Condition: Stable Discharge Details Chief Complaint: RespSymp Clinical Impression: Sinusitis Primary Care Provider: Vesta Madden ED Provider: Jarvis Orantes Home Meds and New Rx's Prescriptions: New doxycycline hyclate 100 mg tablet 100 mg PO BID Qty: 14 RF: 0 No Action metformin 500 MG tablet 500 mg PO BID RF: 0 fluoxetine [Prozac] 40 MG capsule 40 mg PO DAILY RF: 0 albuterol sulfate [Proventil HFA] 200 PUFF HFA aerosol inhaler 2 puff Inhalation Q4H PRN PRNRF: 0 acetaminophen-codeine [Tylenol-Codeine #3] 1 TAB tablet 1 tab PO BID PRNRF: 0 promethazine 25 MG tablet 25 mg PO PRN PRNRF: 0 baclofen 10 MG tablet 1 tab PO QID PRNRF: 0 polyethylene glycol 3350 527 GM powder 17 gm PO BID PRNRF: 0 Discharge Instructions Instructions: Sinusitis (ED) Medical Decision Making 39 yo female comes in with 10 days of sinus pressure and congestion. Denies fevers, vision changes, rashes, vomit, dyspnea, cough. She has normal tm's, clear rhinorrhea, eomi, does have pain with percussion over maxillary sinuses. Suspect sinusitis and given 10 days of symptoms will tx with abx, advised f/u with pcp and return precautions given Differential Diagnosis Differential Diagnosis: allergies, sinusitis HPI General Mode of arrival: ambulatory . Date/Time Provider Initiated Documentation: 05/17/19 12:39 . Limitations to Documentation: no limitations . Information obtained by: patient . History of Present Illness 39 year old F presents to the emergency department with the chief complaint of sinus pain, described as moderate, and it has been constant. No relieving factors improve symptom(s), No exacerbating factors reported . Patient did receive the following treatments prior to arrival, none Related Data Home Medications Medication Instructions Recorded Confirmed metformin 500 mg PO BID 07/12/12 05/17/19 fluoxetine [Prozac] 40 mg PO DAILY 10/20/12 05/17/19 albuterol sulfate [Proventil HFA] 2 puff INHALATION Q4H PRN PRN 09/26/16 05/17/19 acetaminophen-codeine 1 tab PO BID PRN 01/23/17 05/17/19 [Tylenol-Codeine #3] promethazine 25 mg PO PRN PRN 01/23/17 05/17/19 baclofen 1 tab PO QID PRN 11/01/17 05/17/19 polyethylene glycol 3350 17 gm PO BID PRN 05/24/18 05/17/19 doxycycline hyclate 100 mg PO BID #14 tab 05/17/19 Previous Rx's Medication Instructions Recorded doxycycline hyclate 100 mg PO BID #14 tab 05/17/19 Allergies Allergy/AdvReac Type Severity Reaction Status Date / Time cephalexin monohydrate Allergy Severe Anaphylaxsi Verified 09/07/18 10:52 [From Keflex] s nitrofurantoin Allergy Severe Anaphylaxsi Verified 09/07/18 10:52 [From Macrobid] s Sulfa (Sulfonamide Allergy Severe Anaphylaxsi Verified 09/07/18 10:52 Antibiotics) s topiramate [From Topamax] Allergy Severe Anaphylaxsi Verified 09/07/18 10:52 s ibuprofen Allergy Mild Hives Verified 09/07/18 10:52 General Stated Complaint: RespSymp NICOLE: 4 Review of Systems All systems reviewed & are unremarkable except as noted in HPI and below Constitutional Constitutional: Denies chills, Denies fever(s) and Denies weakness Cardiovascular Cardiovascular: Denies chest pain and Denies dyspnea Respiratory Respiratory: Denies cough and Denies dyspnea Gastrointestinal Gastrointestinal: Denies abdominal pain, Denies nausea and Denies vomiting Genitourinary Genitourinary: Denies dysuria Musculoskeletal Musculoskeletal: Denies joint swelling Neurologic Neurologic: Denies weakness [facility] Social History Smoking/Tobacco Use Status: Never Alcohol Intake: never Drug use: Never Substance use type: does not use Do you feel safe at home: Yes Do you feel safe in your relationship?: Yes Exam Const General: no acute distress Orientation: alert HENMT Head: normal to inspection Ears: external ears normal General nose exam: external nose normal Mouth: moist mucous membranes Eyes General: appearance normal, both eyes and all related structures Neck Neck: normal visual inspection Resp Effort & Inspection: normal respiratory effort and able to speak in complete sentences Cardio Rate: regular rate Skin General skin exam: no rashes or lesions noted Neuro General: alert and oriented x3 Extrem General: normal to inspection Psych Mental Status: mental status grossly normal Course Vital Signs Vital signs: Vital Signs Temperature 37.1 C 05/17/19 12:34 Pulse 99 H 05/17/19 12:34 Respiratory Rate 14 05/17/19 12:34 Blood Pressure 133/78 05/17/19 12:34 Pulse Oximetry 97 05/17/19 12:34 Temperature 37.1 C 05/17/19 12:34 Temperature Source Temporal Artery Scan 05/17/19 12:34 Pulse 99 H 05/17/19 12:34 Respiratory Rate 14 05/17/19 12:34 Respiratory Effort Non-Labored 05/17/19 12:37 Respiratory Depth Normal 05/17/19 12:37 Blood Pressure 133/78 05/17/19 12:34 Blood Pressure Position Sitting 05/17/19 12:34 Pulse Oximetry 97 05/17/19 12:34 Oxygen Delivery Method Room Air 05/17/19 12:34 Oxygen Flow Rate 0 05/17/19 12:34 Pain Level 5 05/17/19 12:34
--- NOTE | 2019-05-17 13:54 | NUR.NOTE ---
patient placed onto pcp referral list Nursing Note:
== END 2019-05-17 13:53 | disposition home or self-care (01) ==
PROVIDERS: Emergency Provider Emergency Medicine; PCP Nurse Practitioner Family
DX: J01.90 Acute sinusitis, unspecified (principal)
CPT/HCPCS: 99283

== ENCOUNTER 2019-07-14 17:50 | Emergency (ER) | payer MEDICARE, SELFPAY ==
[2019-07-14 17:55] VITALS: BP 138/99; PULSE 103; RESP 16; TEMP 37; O2SAT 99
--- NOTE | 2019-07-14 17:55 | ED.GENADUL_ITS ---
Discharge Plan Disposition Patient Disposition: HOME Condition: Stable Discharge Details Chief Complaint: Urinary Clinical Impression: UTI (urinary tract infection) Primary Care Provider: eVsta Madden ED Provider: Damaris Bishop Home Meds and New Rx's Prescriptions: New ciprofloxacin HCl 250 mg tablet 250 mg PO BID 3 Days Qty: 6 RF: 0 phenazopyridine [Pyridium] 200 mg tablet 200 mg PO TID PRN (Reason: pain) Qty: 6 RF: 0 Continued metformin 500 MG tablet 500 mg PO BID RF: 0 fluoxetine [Prozac] 40 MG capsule 40 mg PO DAILY RF: 0 albuterol sulfate [Proventil HFA] 200 PUFF HFA aerosol inhaler 2 puff Inhalation Q4H PRN PRNRF: 0 acetaminophen-codeine [Tylenol-Codeine #3] 1 TAB tablet 1 tab PO BID PRNRF: 0 promethazine 25 MG tablet 25 mg PO PRN PRNRF: 0 baclofen 10 MG tablet 1 tab PO QID PRNRF: 0 polyethylene glycol 3350 527 GM powder 17 gm PO BID PRNRF: 0 Discharge Instructions Instructions: Urinary Tract Infection in Women (ED) Additional Instructions: Take the antibiotics until finished. Take the Pyridium as needed and directed for pain. Follow up with your primary care doctor in 1 week as needed. Return to the emergency department with any worsening or new concerning symptoms such as fever, vomiting, back pain. Discharge Data Discharge Physician: Damaris Bishop Medical Decision Making 39-year-old female with a history of asthma, diabetes, PCOS presents with UTI symptoms for the past 10 days. Denies fever, vomiting or back pain. Urinalysis notes 3-5 WBCs and RBCs with moderate bacteria. Urine sent for culture. We will treat for UTI. She is allergic to Keflex, sulfa and Macrobid. Dose of Cipro given here as well as prescription. Advised to follow up with the primary care doctor for re-evaluation. Usual and customary return precautions given prior to discharge. Medical Records Medical records reviewed: Yes I reviewed the patient's medical records. Lab Data Lab results reviewed: Yes I reviewed the patient's lab results. Labs: 07/14/19 17:58 Urine - Reflex from Ua Urine Culture - Pending Laboratory Tests Range/Units 07/14/19 17:58 Urine Color (Yellow) Yellow Urine Clarity (Clear) Clear Urine pH (5-8) 6.5 Ur Specific [place] (1.005-1.025) 1.025 Urine Protein (Negative) mg/dL Negative Urine Ketones (Negative) mg/dL Negative Urine Blood (Negative) Trace-intact H Urine Nitrite (Negative) Negative Urine Bilirubin (Negative) Negative Urine Urobilinogen (Up TO 0.2) EU/dL 0.2 Ur Leukocyte Esterase (Negative) Trace Urine RBC (0-2) HPF 3-5 H Urine WBC (0-5) HPF 3-5 Ur Epithelial Cells (Negative) HPF Moderate Urine Crystals (Negative) HPF Negative Urine Bacteria (Negative) HPF Moderate Urine Mucus (Negative) Negative Ur Culture Indicated? Yes Urine Glucose (Negative) mg/dL Negative HPI General Mode of arrival: ambulatory . Date/Time Provider Initiated Documentation: 07/14/19 17:51 . Limitations to Documentation: no limitations . Information obtained by: patient . History of Present Illness 39 year old F presents to the emergency department with the chief complaint of Urinary frequency, urgency, dysuria, hematuria, Quality is described as aching, and is localized to the abdomen (lower ). Patient reports no radiation. Patient started experiencing this day(s) (10) and it has been intermittent. No relieving factors improve symptom(s), No exacerbating factors reported . Patient notes denies fever/chills and nausea/vomiting. Patient did receive the following treatments prior to arrival, none Related Data Home Medications Medication Instructions Recorded Confirmed metformin 500 mg PO BID 07/12/12 07/14/19 fluoxetine [Prozac] 40 mg PO DAILY 10/20/12 07/14/19 albuterol sulfate [Proventil HFA] 2 puff INHALATION Q4H PRN PRN 09/26/16 07/14/19 acetaminophen-codeine 1 tab PO BID PRN 01/23/17 07/14/19 [Tylenol-Codeine #3] promethazine 25 mg PO PRN PRN 01/23/17 07/14/19 baclofen 1 tab PO QID PRN 11/01/17 07/14/19 polyethylene glycol 3350 17 gm PO BID PRN 05/24/18 07/14/19 ciprofloxacin HCl 250 mg PO BID 3 Days #6 tab 07/14/19 phenazopyridine [Pyridium] 200 mg PO TID PRN #6 tab 07/14/19 Previous Rx's Medication Instructions Recorded ciprofloxacin HCl 250 mg PO BID 3 Days #6 tab 07/14/19 phenazopyridine [Pyridium] 200 mg PO TID PRN #6 tab 07/14/19 Allergies Allergy/AdvReac Type Severity Reaction Status Date / Time cephalexin monohydrate Allergy Severe Anaphylaxsi Verified 07/14/19 18:02 [From Keflex] s nitrofurantoin Allergy Severe Anaphylaxsi Verified 07/14/19 18:02 [From Macrobid] s Sulfa (Sulfonamide Allergy Severe Anaphylaxsi Verified 07/14/19 18:02 Antibiotics) s topiramate [From Topamax] Allergy Severe Anaphylaxsi Verified 07/14/19 18:02 s ibuprofen Allergy Mild Hives Verified 07/14/19 18:02 General NICOLE: 4 Review of Systems All systems reviewed & are unremarkable except as noted in HPI and below Constitutional Constitutional: Reports as per HPI, Denies chills and Denies fever(s) Eyes Eyes: Denies blurry vision ENT Ears, Nose, Mouth, and Throat: Denies dizziness, Denies sore throat and Denies throat swelling Cardiovascular Cardiovascular: Denies chest pain and Denies dyspnea Respiratory Respiratory: Denies cough and Denies dyspnea Gastrointestinal Gastrointestinal: Denies abdominal pain, Denies diarrhea and Denies vomiting Genitourinary Genitourinary: Reports hematuria, Reports urinary frequency, Reports dysuria and Reports urinary urgency Musculoskeletal Musculoskeletal: Denies back pain and Denies numbness Integumentary/Breasts Skin/Breast: Denies lesions and Denies rash Neurologic Neurologic: Denies dizziness, Denies focal weakness and Denies numbness Allergic/Immunologic Allergic/Immunologic: Denies throat swelling [facility] Social History Smoking/Tobacco Use Status: Never Alcohol Intake: never Drug use: Never Substance use type: does not use Do you feel safe at home: Yes Do you feel safe in your relationship?: Yes Exam Const General: cooperative, healthy appearing and no acute distress HENMT Head: normal to inspection Face and sinus: normal facial exam Eyes General: appearance normal, both eyes and all related structures EOM: EOM intact bilaterally Neck Neck: normal visual inspection and No submandibular swelling Lymphatic: no lymphadenopathy noted Chest Chest: normal inspection of the chest and no tenderness Resp Effort & Inspection: normal respiratory effort and able to speak in complete sentences Auscultation: clear to auscultation bilaterally Cardio Rate: regular rate Rhythm: regular rhythm GI Inspection: normal to inspection Palpation: soft, not firm, not rigid and nontender Auscultation: normal bowel sounds Back/Spine/Pelvis Back: no CVA tenderness Skin General skin exam: no rashes or lesions noted Neuro General: alert, awake and oriented x3 Cognition: normal cognition Speech: speech normal Motor: muscle tone normal throughout Sensory Exam: no sensory deficits noted Extrem General: normal to inspection, full ROM, normal capillary refill, no calf tenderness bilaterally and no edema Psych Appearance: grossly normal Mental Status: mental status grossly normal Speech and Movement: speech and movement normal Affect: normal affect
[2019-07-14 18:05] LABS: Clarity Clear (Clear); Leukocyte Esterase Trace (Negative); Specific Gravity 1.025 (1.005-1.025); pH 6.5 (5-8)
[2019-07-14 18:06] LABS: Bilirubin Negative (Negative); Blood Trace-intact (Negative); Glucose Negative (Negative); Ketones Negative (Negative); Nitrite Negative (Negative); Urobilinogen 0.2 EU/dL (Up TO 0.2)
[2019-07-14 18:12] LABS: Bacteria Moderate HPF (Negative); C & S Indicated? Yes; Crystals Negative HPF (Negative); Epithelial Cells Moderate HPF (Negative); Mucus Negative (Negative)
[2019-07-14] MEDS: Phenazopyridine 100 MG TAB, 2 TABS/BTL PO (18:22)
[2019-07-14] MEDS: Ciprofloxacin 500 MG TAB PO (18:22)
== END 2019-07-14 18:27 | disposition home or self-care (01) ==
LOC: ER 18:18
PROVIDERS: Emergency Provider Physician Assistant; PCP Nurse Practitioner Family
DX: N39.0 Urinary tract infection, site not specified (principal); E11.9 Type 2 diabetes mellitus without complications; Z79.84 Long term (current) use of oral hypoglycemic drugs
CPT/HCPCS: 81025; 99283; 81003; 81015; 87086

== ENCOUNTER 2019-09-23 12:22 | Emergency (ER) | payer MEDICARE, SELFPAY ==
[2019-09-23 12:29] VITALS: BP 137/84; PULSE 87; RESP 16; TEMP 36.6; O2SAT 97
--- NOTE | 2019-09-23 12:45 | ED.GENADUL_ITS ---
Discharge Plan Disposition Patient Disposition: HOME Condition: Serious Discharge Details Chief Complaint: DentalOral Clinical Impression: Dental infection Primary Care Provider: Vesta Madden ED Provider: Tavo Herndon Home Meds and New Rx's Prescriptions: New amoxicillin 875 mg tablet 875 mg PO BID Qty: 20 RF: 0 No Action metformin 500 MG tablet 500 mg PO BID RF: 0 fluoxetine [Prozac] 40 MG capsule 40 mg PO DAILY RF: 0 albuterol sulfate [Proventil HFA] 200 PUFF HFA aerosol inhaler 2 puff Inhalation Q4H PRN PRNRF: 0 acetaminophen-codeine [Tylenol-Codeine #3] 1 TAB tablet 1 tab PO BID PRNRF: 0 polyethylene glycol 3350 527 GM powder 17 gm PO BID PRNRF: 0 esomeprazole magnesium 40 mg capsule,delayed release(DR/EC) 40 mg PO BID RF: 0 lorazepam 0.5 mg tablet 0.5 mg PO PRN PRNRF: 0 Discharge Instructions Instructions: Dental Abscess (ED) Additional Instructions: Amoxicillin as directed. Tylenol as directed [id number]. Cool and/or warm compresses every 2 hours for 20 days. Please watch for new or worsening symptoms and return to the ER for any concerns. Using the list provided, I would like you to establish dental care tomorrow for a follow-up appointment within the next week for definitive dental care. Medical Decision Making Patient who reports a broken tooth, longstanding history, reports few day history of increased pain. She appears well, nontoxic. She is afebrile. There is no obvious pointing abscess. Airway is patent, uvula is midline. Likely a very early dental infection. Will place on amoxicillin and give the dental list so she may call for definitive care tomorrow. Recommend [id number] Tylenol and cool-warm compresses as tolerated. Patient has no additional questions or concerns and is comfortable with this plan. Medical Records Medical records reviewed: Yes I reviewed the patient's medical records. HPI General Mode of arrival: ambulatory . Date/Time Provider Initiated Documentation: 09/23/19 12:23 . Limitations to Documentation: no limitations . Information obtained by: patient . HPI Narrative: 39-year-old female history of depression, diabetes, asthma, reports few day history of left upper dental discomfort. She reports it began and was mild, now is moderate in nature. Has not taken any [id number] medications for discomfort. She tells me that she broke her tooth quite a long time ago but never had it repaired, does not have a dentist. Denies any other symptoms such as headache, ear pain, sore throat, difficulty breathing, cough. Patient has no additional questions or concerns Related Data Home Medications Medication Instructions Recorded Confirmed metformin 500 mg PO BID 07/12/12 09/23/19 fluoxetine [Prozac] 40 mg PO DAILY 10/20/12 09/23/19 albuterol sulfate [Proventil HFA] 2 puff INHALATION Q4H PRN PRN 09/26/16 09/23/19 acetaminophen-codeine 1 tab PO BID PRN 01/23/17 09/23/19 [Tylenol-Codeine #3] polyethylene glycol 3350 17 gm PO BID PRN 05/24/18 09/23/19 amoxicillin 875 mg PO BID #20 tab 09/23/19 esomeprazole magnesium 40 mg PO BID 09/23/19 09/23/19 lorazepam 0.5 mg PO PRN PRN 09/23/19 09/23/19 Previous Rx's Medication Instructions Recorded amoxicillin 875 mg PO BID #20 tab 09/23/19 Allergies Allergy/AdvReac Type Severity Reaction Status Date / Time cephalexin monohydrate Allergy Severe Anaphylaxsi Verified 09/23/19 12:32 [From Keflex] s nitrofurantoin Allergy Severe Anaphylaxsi Verified 09/23/19 12:32 [From Macrobid] s Sulfa (Sulfonamide Allergy Severe Anaphylaxsi Verified 09/23/19 12:32 Antibiotics) s topiramate [From Topamax] Allergy Severe Anaphylaxsi Verified 09/23/19 12:32 s ibuprofen Allergy Mild Hives Verified 09/23/19 12:32 General Stated Complaint: DentalOral NICOLE: 4 Review of Systems Constitutional Constitutional: Denies fever(s) and Denies headache(s) Eyes Eyes: Denies eye discharge ENT Ears, Nose, Mouth, and Throat: Denies otalgia, Denies headache(s), Denies neck pain and Denies sore throat Respiratory Respiratory: Denies cough Gastrointestinal Gastrointestinal: Denies nausea Musculoskeletal Musculoskeletal: Denies neck pain Neurologic Neurologic: Denies headache(s) PENDING SALE TO [facility] Medical History Asthma (Chronic) Diabetes (Chronic) Migraine (Chronic) PCOS (polycystic ovarian syndrome) (Acute) Small bowel obstruction (Acute) Surgical History History of brain surgery (Acute) Hydrocephalus as an infant History of placement of ear tubes (Acute) Social History Smoking/Tobacco Use Status: Never Alcohol Intake: never Drug use: Never Substance use type: does not use Do you feel safe at home: Yes Do you feel safe in your relationship?: Yes Exam Const General: cooperative, healthy appearing, comfortable and no acute distress Orientation: alert, awake and oriented x3 HENMT Head: normal to inspection, normocephalic and atraumatic Ears: external ears normal, TM's normal bilaterally and EAC's normal General nose exam: external nose normal Face and sinus: normal facial exam Mouth: moist mucous membranes Teeth and gingiva: gingiva normal and caries (Tooth #14, tenderness. No abscess) Throat: posterior oropharynx normal Eyes Conjunctivae: conjunctivae normal Neck Neck: normal visual inspection, full ROM, no lymphadenopathy, trachea midline, supple and nontender Resp Effort & Inspection: normal respiratory effort and able to speak in complete sentences Auscultation: clear to auscultation bilaterally Cardio Rate: regular rate Rhythm: regular rhythm Skin General skin exam: no rashes or lesions noted Neuro General: patient alert, patient awake, moves all extremities and no focal motor deficits Sensory Exam: no sensory deficits noted Psych Appearance: grossly normal Mental Status: mental status grossly normal Course Vital Signs Vital signs: Vital Signs Temperature 36.6 C 09/23/19 12:29 Pulse 87 09/23/19 12:29 Respiratory Rate 16 09/23/19 12:29 Blood Pressure 137/84 09/23/19 12:29 Pulse Oximetry 97 09/23/19 12:29 Temperature 36.6 C 09/23/19 12:29 Temperature Source Tympanic 09/23/19 12:29 Pulse 87 09/23/19 12:29 Respiratory Rate 16 09/23/19 12:29 Blood Pressure 137/84 09/23/19 12:29 Pulse Oximetry 97 09/23/19 12:29 Oxygen Delivery Method Room Air 09/23/19 12:29 Oxygen Flow Rate 0 09/23/19 12:29 Pain Level 8 09/23/19 12:29
== END 2019-09-23 12:55 | disposition home or self-care (01) ==
PROVIDERS: Emergency Provider Physician Assistant; PCP Nurse Practitioner Family
DX: R68.84 Jaw pain (principal); K04.7 Periapical abscess without sinus; S02.5XXA Fracture of tooth (traumatic), initial encounter for closed fracture; X58.XXXA Exposure to other specified factors, initial encounter; E11.9 Type 2 diabetes mellitus without complications; Z79.84 Long term (current) use of oral hypoglycemic drugs
CPT/HCPCS: 99283

== ENCOUNTER 2020-02-03 12:27 | Emergency (ER) | payer MEDICARE, SELFPAY ==
[2020-02-03 12:32] VITALS: BP 128/82; PULSE 80; RESP 18; TEMP 36.5; O2SAT 98
[2020-02-03 12:47] LABS: Bilirubin Negative (Negative); Blood Moderate (Negative); Clarity Clear (Clear); Glucose Negative (Negative); Ketones Negative (Negative); Leukocyte Esterase Negative (Negative); Nitrite Negative (Negative); Specific Gravity >= 1.030 (1.005-1.025); Urobilinogen 0.2 EU/dL (Up TO 0.2); pH 5.5 (5-8)
[2020-02-03 12:54] LABS: Bacteria Rare HPF (Negative); C & S Indicated? No; Casts Negative LPF (Negative); Crystals Negative HPF (Negative); Epithelial Cells Rare HPF (Negative); Mucus Trace (Negative); WBC 0-2 HPF (0-5)
--- NOTE | 2020-02-03 12:57 | ED.GENADUL_ITS ---
Discharge Plan Disposition Patient Disposition: HOME Condition: Stable Discharge Details Clinical Impression: Acute cystitis Primary Care Provider: Vesta Madden ED Provider: Jaya Barcenas Home Meds and New Rx's Prescriptions: New ciprofloxacin HCl 250 mg tablet 250 mg PO BID 5 Days Qty: 10 RF: 0 Continued metformin 500 MG tablet 500 mg PO BID RF: 0 fluoxetine [Prozac] 40 MG capsule 40 mg PO DAILY RF: 0 albuterol sulfate [Proventil HFA] 200 PUFF HFA aerosol inhaler 2 puff Inhalation Q4H PRN PRNRF: 0 acetaminophen-codeine [Tylenol-Codeine #3] 1 TAB tablet 1 tab PO BID PRNRF: 0 polyethylene glycol 3350 527 GM powder 17 gm PO BID PRNRF: 0 esomeprazole magnesium 40 mg capsule,delayed release(DR/EC) 40 mg PO BID RF: 0 lorazepam 0.5 mg tablet 0.5 mg PO PRN PRNRF: 0 Discharge Instructions Instructions: Urinary Tract Infection in Women (ED) Additional Instructions: Home to rest today. Small, frequent sips of fluids so that you maintain hydration. To ciprofloxacin as prescribed. Return if you have increasing pain, vomiting, develop a fever, or any other acute concerns. Medical Decision Making 39-year-old female presents from home with 1 day of urinary urgency, frequency, incomplete voiding. No fever or vomiting. She has otherwise been well. States it feels similar to previous urinary tract infection. She did note some scant hematuria. She is not . Her urinalysis is concentrated with 10-20 white blood cells, bacteria present. Consistent with cystitis. She will return if she develops flank pain or increasing pain. She has tolerated ciprofloxacin in the past and I will place her on a course of same. She is stable and appropriate disposition to home at this time. HPI General Mode of arrival: ambulatory . Date/Time Provider Initiated Documentation: 02/03/20 12:30 . Limitations to Documentation: no limitations . Information obtained by: patient . History of Present Illness 39 year old F presents to the emergency department with the chief complaint of Urinary urgency and frequency, described as similar to prior episodes, Quality is described as constant, and is localized to the pelvis. Patient reports no radiation. Patient started experiencing this hour(s) and it has been constant. No relieving factors improve symptom(s), No exacerbating factors reported . Patient notes denies fever/chills and nausea/vomiting. Patient did receive the following treatments prior to arrival, none Related Data Home Medications Medication Instructions Recorded Confirmed metformin 500 mg PO BID 07/12/12 02/03/20 fluoxetine [Prozac] 40 mg PO DAILY 10/20/12 02/03/20 albuterol sulfate [Proventil HFA] 2 puff INHALATION Q4H PRN PRN 09/26/16 02/03/20 acetaminophen-codeine 1 tab PO BID PRN 01/23/17 02/03/20 [Tylenol-Codeine #3] polyethylene glycol 3350 17 gm PO BID PRN 05/24/18 02/03/20 esomeprazole magnesium 40 mg PO BID 09/23/19 02/03/20 lorazepam 0.5 mg PO PRN PRN 09/23/19 02/03/20 ciprofloxacin HCl 250 mg PO BID 5 Days #10 tab 02/03/20 Previous Rx's Medication Instructions Recorded ciprofloxacin HCl 250 mg PO BID 5 Days #10 tab 02/03/20 Allergies Allergy/AdvReac Type Severity Reaction Status Date / Time cephalexin monohydrate Allergy Severe Anaphylaxsi Verified 02/03/20 12:42 [From Keflex] s nitrofurantoin Allergy Severe Anaphylaxsi Verified 02/03/20 12:42 [From Macrobid] s Sulfa (Sulfonamide Allergy Severe Anaphylaxsi Verified 02/03/20 12:42 Antibiotics) s topiramate [From Topamax] Allergy Severe Anaphylaxsi Verified 02/03/20 12:42 s ibuprofen Allergy Mild Hives Verified 02/03/20 12:42 General Stated Complaint: Urinary NICOLE: 3 Review of Systems Narrative: 6 systems reviewed and otherwise negative [facility] Medical History (Updated 02/03/20 @ 12:59 by Jaya Barcenas MD) Asthma Diabetes Migraine PCOS (polycystic ovarian syndrome) Small bowel obstruction Surgical History History of brain surgery Hydrocephalus as an infant History of placement of ear tubes Social History Smoking/Tobacco Use Status: Never Alcohol Intake: never Drug use: Never Substance use type: does not use Do you feel safe at home: Yes Do you feel safe in your relationship?: Yes Exam Narrative Exam Narrative: GEN: awake, alert, oriented 3. Pleasant, well groomed, interactive. HEAD: Normocephalic, atraumatic ENT: Mucous membranes moist, oropharynx unremarkable, External ear exam unremarkable EYES: PERRL, EOMI NECK: Full ROM, no BOUCHRA, no menigismus CHEST/RESP: Nontender, clear to auscultation bilateral, no wheeze/rhonchi/rales CARDIOVASCULAR: RRR, no murmur, rub ivy. 2+ Rad pulse bilateral ABDOMEN: Soft, mild suprapubic tenderness without rebound or guarding, no mass. +Bowel sounds EXT: Full ROM, no edema, no rash Neuro: Grossly normal neurologic exam, conversant, interactive. Psych: Speech fluent, thoughts congruent, affect normal Course Vital Signs Vital signs: Vital Signs Temperature 36.5 C 02/03/20 12:32 Pulse 80 02/03/20 12:32 Respiratory Rate 18 02/03/20 12:32 Blood Pressure 128/82 02/03/20 12:32 Pulse Oximetry 98 02/03/20 12:32 Temperature 36.5 C 02/03/20 12:32 Temperature Source Temporal Artery Scan 02/03/20 12:32 Pulse 80 02/03/20 12:32 Respiratory Rate 18 02/03/20 12:32 Respiratory Effort Non-Labored 02/03/20 12:40 Blood Pressure 128/82 02/03/20 12:32 Blood Pressure Position Sitting 02/03/20 12:32 Pulse Oximetry 98 02/03/20 12:32 Oxygen Delivery Method Room Air 02/03/20 12:32 Oxygen Flow Rate 0 02/03/20 12:32 Pain Level 6 02/03/20 12:32 Lab/Test Results Lab/Test Results: Laboratory Tests Range/Units 02/03/20 12:35 Urine Color (Yellow) Yellow Urine Clarity (Clear) Clear Urine pH (5-8) 5.5 Ur Specific [place] (1.005-1.025) >= 1.030 H Urine Protein (Negative) mg/dL Negative Urine Ketones (Negative) mg/dL Negative Urine Blood (Negative) Moderate H Urine Nitrite (Negative) Negative Urine Bilirubin (Negative) Negative Urine Urobilinogen (Up TO 0.2) EU/dL 0.2 Ur Leukocyte Esterase (Negative) Negative Urine RBC (0-2) HPF 10-20 H Urine WBC (0-5) HPF 0-2 Ur Epithelial Cells (Negative) HPF Rare Urine Crystals (Negative) HPF Negative Urine Bacteria (Negative) HPF Rare Urine Casts (Negative) LPF Negative Urine Mucus (Negative) Trace Ur Culture Indicated? No Urine Glucose (Negative) mg/dL Negative POC- Test(urine) Negative
== END 2020-02-03 13:06 | disposition home or self-care (01) ==
PROVIDERS: Emergency Provider Emergency Medicine; PCP Nurse Practitioner Family
DX: N30.01 Acute cystitis with hematuria (principal); E11.9 Type 2 diabetes mellitus without complications; Z79.84 Long term (current) use of oral hypoglycemic drugs
CPT/HCPCS: 81025; 99283; 81003; 81015

== ENCOUNTER 2020-03-23 11:27 | Emergency (ER) | payer MEDICARE, SELFPAY ==
[2020-03-23 11:30] VITALS: BP 119/84; PULSE 103; RESP 16; TEMP 36.5; O2SAT 97
--- NOTE | 2020-03-23 11:37 | W.ED.GENAD ---
Discharge Plan Disposition Patient Disposition: HOME Condition: Stable Discharge Details Clinical Impression: Bilateral acute otitis media Primary Care Provider: Vesta Madden ED Provider: Malia Ward Home Meds and New Rx's Prescriptions: New clindamycin HCl 300 mg capsule 300 mg PO BID 7 Days Qty: 14 RF: 0 Continued metformin 500 MG tablet 500 mg PO BID RF: 0 fluoxetine [Prozac] 40 MG capsule 40 mg PO DAILY RF: 0 albuterol sulfate [Proventil HFA] 200 PUFF HFA aerosol inhaler 2 puff Inhalation Q4H PRN PRNRF: 0 acetaminophen-codeine [Tylenol-Codeine #3] 1 TAB tablet 1 tab PO BID PRNRF: 0 polyethylene glycol 3350 527 GM powder 17 gm PO BID PRNRF: 0 esomeprazole magnesium 40 mg capsule,delayed release(DR/EC) 40 mg PO BID RF: 0 lorazepam 0.5 mg tablet 0.5 mg PO PRN PRNRF: 0 Discharge Instructions Instructions: Ear Infection (ED) Additional Instructions: Follow up with primary care provider in 3-5 days. Return to ED sooner if any worsening or concerns. Increase oral fluids. Please take Tylenol or Ibuprofen with food every 4-6 hours as needed for pain and swelling. Take antibiotic as prescribed. Referrals: Vesta Madden [Primary Care Provider] - Medical Decision Making 39-year-old female presents the ER with chief complaint of earache. She reports 3 days ago began with left ear pain now with bilateral ear pain. She reports decreased hearing in her right ear is plugged. Patient has a past medical history of asthma, diabetes, migraines and polycystic ovarian syndrome. I was able to visualize tympanic membrane after irrigation, bilateral tympanic membranes are retracted and erythemic. Will treat with clindamycin. First dose given here in department. Instructed on home care, verbalized understanding. Post irrigation she states that she can now hear much better out of both ears. HPI General Mode of arrival: ambulatory. Date/Time Provider Initiated Documentation: 03/23/20 11:32. Limitations to Documentation: no limitations. Information obtained by: patient. HPI Narrative: 39-year-old female presents the ER with chief complaint of earache. She reports 3 days ago began with left ear pain now with bilateral ear pain. She reports decreased hearing in her right ear is plugged. Patient has a past medical history of asthma, diabetes, migraines and polycystic ovarian syndrome. Related Data Home Medications Medication Instructions Recorded Confirmed metformin 500 mg PO BID 07/12/12 03/23/20 fluoxetine [Prozac] 40 mg PO DAILY 10/20/12 03/23/20 albuterol sulfate [Proventil HFA] 2 puff INHALATION Q4H PRN PRN 09/26/16 03/23/20 acetaminophen-codeine 1 tab PO BID PRN 01/23/17 03/23/20 [Tylenol-Codeine #3] polyethylene glycol 3350 17 gm PO BID PRN 05/24/18 03/23/20 esomeprazole magnesium 40 mg PO BID 09/23/19 03/23/20 lorazepam 0.5 mg PO PRN PRN 09/23/19 03/23/20 clindamycin HCl 300 mg PO BID 7 Days #14 cap 03/23/20 Previous Rx's Medication Instructions Recorded clindamycin HCl 300 mg PO BID 7 Days #14 cap 03/23/20 Allergies Allergy/AdvReac Type Severity Reaction Status Date / Time cephalexin monohydrate Allergy Severe Anaphylaxsi Verified 03/23/20 11:34 [From Keflex] s nitrofurantoin Allergy Severe Anaphylaxsi Verified 03/23/20 11:34 [From Macrobid] s Sulfa (Sulfonamide Allergy Severe Anaphylaxsi Verified 03/23/20 11:34 Antibiotics) s topiramate [From Topamax] Allergy Severe Anaphylaxsi Verified 03/23/20 11:34 s ibuprofen Allergy Mild Hives Verified 03/23/20 11:34 General Stated Complaint: EarProblem NICOLE: 4 Review of Systems All systems reviewed & are unremarkable except as noted in HPI and below ENT Ears, Nose, Mouth, and Throat: Reports otalgia and Denies sore throat [facility] Medical History (Updated 03/23/20 @ 12:09 by Malia Ward) Asthma Diabetes Migraine PCOS (polycystic ovarian syndrome) Small bowel obstruction Surgical History History of brain surgery Hydrocephalus as an infant History of placement of ear tubes Social History Smoking/Tobacco Use Status: Never Smoking risk assessment performed?: Yes Alcohol Intake: never Drug use: Never Substance use type: does not use Do you feel safe at home: Yes Do you feel safe in your relationship?: Yes Exam HENMT Head: normal to inspection Ears: mastoids normal, normal mastoids bilaterally, TM abnormal (Able to visualize after irrigation) erythematous bilaterally and retracted bilaterally and unable to visualize TM on the right (Cerumen impaction) Course Vital Signs Vital signs: Vital Signs Temperature 36.5 C 03/23/20 11:30 Pulse 103 H 03/23/20 11:30 Respiratory Rate 16 03/23/20 11:30 Blood Pressure 119/84 03/23/20 11:30 Pulse Oximetry 97 03/23/20 11:30 Temperature 36.5 C 03/23/20 11:30 Temperature Source Skin 03/23/20 11:30 Pulse 103 H 03/23/20 11:30 Respiratory Rate 16 03/23/20 11:30 Respiratory Effort Non-Labored 03/23/20 11:30 Blood Pressure 119/84 03/23/20 11:30 Blood Pressure Position Sitting 03/23/20 11:30 Pulse Oximetry 97 03/23/20 11:30 Oxygen Delivery Method Room Air 03/23/20 11:30 Oxygen Flow Rate 0 03/23/20 11:30 Pain Level 6 03/23/20 11:30
[2020-03-23] MEDS: Clindamycin 150 MG CAP 300 MG PO (12:13)
== END 2020-03-23 12:21 | disposition home or self-care (01) ==
PROVIDERS: Emergency Provider Registered Nurse Emergency; PCP Nurse Practitioner Family
DX: H66.93 Otitis media, unspecified, bilateral (principal); E11.9 Type 2 diabetes mellitus without complications; Z79.84 Long term (current) use of oral hypoglycemic drugs
CPT/HCPCS: 69209; 99283

== ENCOUNTER 2020-05-25 12:20 | Emergency (ER) | payer MEDICARE, SELFPAY ==
[2020-05-25 12:48] VITALS: BP 136/93; PULSE 86; RESP 20; TEMP 36.5; O2SAT 99
[2020-05-25 12:53] LABS: Bilirubin Negative (Negative); Blood Trace-intact (Negative); Clarity Clear (Clear); Glucose Negative (Negative); Ketones Negative (Negative); Leukocyte Esterase Negative (Negative); Nitrite Negative (Negative); Specific Gravity >= 1.030 (1.005-1.025); Urobilinogen 0.2 EU/dL (Up TO 0.2)
[2020-05-25 13:03] LABS: Epithelial Cells Moderate HPF (Negative); RBC 0-2 HPF (0-2); WBC 0-2 HPF (0-5)
[2020-05-25 13:04] LABS: Bacteria Few HPF (Negative); C & S Indicated? No/Sq. Contamination; Casts Negative LPF (Negative); Crystals Negative HPF (Negative); Mucus Trace (Negative)
--- NOTE | 2020-05-25 13:55 | ED.GENADUL_ITS ---
Discharge Plan Disposition Patient Disposition: HOME Condition: Stable Discharge Details Clinical Impression: Urinary tract infection symptoms Primary Care Provider: Elizabeth Cook ED Provider: Damaris Bishop Home Meds and New Rx's Prescriptions: New ciprofloxacin HCl 250 mg tablet 250 mg PO BID 3 Days Qty: 6 RF: 0 Continued metformin 500 MG tablet 500 mg PO BID RF: 0 fluoxetine [Prozac] 40 MG capsule 40 mg PO DAILY RF: 0 albuterol sulfate [Proventil HFA] 200 PUFF HFA aerosol inhaler 2 puff Inhalation Q4H PRN PRNRF: 0 acetaminophen-codeine [Tylenol-Codeine #3] 1 TAB tablet 1 tab PO BID PRNRF: 0 polyethylene glycol 3350 527 GM powder 17 gm PO BID PRNRF: 0 esomeprazole magnesium 40 mg capsule,delayed release(DR/EC) 40 mg PO BID RF: 0 lorazepam 0.5 mg tablet 0.5 mg PO PRN PRNRF: 0 Discharge Instructions Instructions: Urinary Tract Infection in Women (ED) Additional Instructions: Your urine sample did not appear to be clearly consistent with a urinary tract infection, however because your symptoms are consistent with your previous urinary tract infections in the past, you may be in the early stages of a urinary tract infection. You have declined any lab work or imaging at this time. Please return to the emergency department if you develop any worsening or new concerning symptoms such as fever, vomiting, worsening pain or any other concerns as the cause of your symptoms may be due to another cause. Call your primary care doctor's office tomorrow to schedule a follow-up appointment for reevaluation later this week. Discharge Data Discharge Date/Time-TO BE ENTERED AT DEPARTURE: 05/25/20 14:27 Discharge Physician: Damaris Bishop Medical Decision Making 40-year-old female with a history of asthma, diabetes, migraine, PCOS who presents for dysuria, urinary frequency and urgency consistent with her usual UTIs. Patient denies chance of due to her history of PCOS. Urine test ordered for completion. Urinalysis notes trace blood but negative nitrite, white blood cells with few bacteria and moderate epithelial cells. Patient appears nontoxic. Her abdomen is soft and nontender. She has no CVA tenderness. Doubt kidney stone as she appears comfortable. Discussed with patient that as her urinalysis is not significantly positive for UTI, would recommend further work-up with labs and imaging but she is declining this at this time and would rather just treat with antibiotics for UTI. Discussed that this could result in missed or delayed diagnoses or disability and she is understanding. She demonstrates capacity to make decisions. After review of patient's medications, allergies and previous urine cultures and sensitivities, will treat with Cipro. Patient advised to call her primary care doctor for follow-up. Usual and customary return precautions given prior to discharge. Medical Records Medical records reviewed: Yes I reviewed the patient's medical records. Lab Data Lab results reviewed: Yes I reviewed the patient's lab results. Labs: Laboratory Tests Range/Units 05/25/20 12:37 Urine Color (Yellow) Yellow Urine Clarity (Clear) Clear Urine pH (5-8) 6.0 Ur Specific [place] (1.005-1.025) >= 1.030 H Urine Protein (Negative) mg/dL Negative Urine Ketones (Negative) mg/dL Negative Urine Blood (Negative) Trace-intact H Urine Nitrite (Negative) Negative Urine Bilirubin (Negative) Negative Urine Urobilinogen (Up TO 0.2) EU/dL 0.2 Ur Leukocyte Esterase (Negative) Negative Urine RBC (0-2) HPF 0-2 Urine WBC (0-5) HPF 0-2 Ur Epithelial Cells (Negative) HPF Moderate Urine Crystals (Negative) HPF Negative Urine Bacteria (Negative) HPF Few Urine Casts (Negative) LPF Negative Urine Mucus (Negative) Trace Ur Culture Indicated? No/sq. contamination Urine Glucose (Negative) mg/dL Negative HPI General Mode of arrival: ambulatory . Date/Time Provider Initiated Documentation: 05/25/20 13:09 . Limitations to Documentation: no limitations . Information obtained by: patient . HPI Narrative: Patient is a 40-year-old female with a history of diabetes, PCOS, asthma, migraine who presents for urinary frequency, urgency and dysuria for the past few days consistent with her previous UTIs. Patient also admits to some lower abdominal pain and kidney pain but denies any fever, chills, nausea, vomiting. She states she denies any chance of due to her history of PCOS. Related Data Home Medications Medication Instructions Recorded Confirmed metformin 500 mg PO BID 07/12/12 05/25/20 fluoxetine [Prozac] 40 mg PO DAILY 10/20/12 05/25/20 albuterol sulfate [Proventil HFA] 2 puff INHALATION Q4H PRN PRN 09/26/16 05/25/20 acetaminophen-codeine 1 tab PO BID PRN 01/23/17 05/25/20 [Tylenol-Codeine #3] polyethylene glycol 3350 17 gm PO BID PRN 05/24/18 05/25/20 esomeprazole magnesium 40 mg PO BID 09/23/19 05/25/20 lorazepam 0.5 mg PO PRN PRN 09/23/19 05/25/20 ciprofloxacin HCl 250 mg PO BID 3 Days #6 tab 05/25/20 Previous Rx's Medication Instructions Recorded ciprofloxacin HCl 250 mg PO BID 3 Days #6 tab 05/25/20 Allergies Allergy/AdvReac Type Severity Reaction Status Date / Time cephalexin monohydrate Allergy Severe Anaphylaxsi Verified 05/25/20 14:19 [From Keflex] s nitrofurantoin Allergy Severe Anaphylaxsi Verified 05/25/20 14:19 [From Macrobid] s Sulfa (Sulfonamide Allergy Severe Anaphylaxsi Verified 05/25/20 14:19 Antibiotics) s topiramate [From Topamax] Allergy Severe Anaphylaxsi Verified 05/25/20 14:19 s ibuprofen Allergy Mild Hives Verified 05/25/20 14:19 General Stated Complaint: Urinary NICOLE: 4 Review of Systems All systems reviewed & are unremarkable except as noted in HPI and below Constitutional Constitutional: Reports as per HPI, Denies chills and Denies fever(s) Eyes Eyes: Denies blurry vision ENT Ears, Nose, Mouth, and Throat: Denies dizziness, Denies sore throat and Denies throat swelling Cardiovascular Cardiovascular: Denies chest pain and Denies dyspnea Respiratory Respiratory: Denies cough and Denies dyspnea Gastrointestinal Gastrointestinal: Denies abdominal pain, Denies diarrhea and Denies vomiting Genitourinary Genitourinary: Denies hematuria, Reports dysuria, Reports urinary urgency and Reports other (urinary frequency) Musculoskeletal Musculoskeletal: Denies back pain and Denies numbness Integumentary/Breasts Skin/Breast: Denies lesions and Denies rash Neurologic Neurologic: Denies dizziness, Denies localized weakness and Denies numbness Allergic/Immunologic Allergic/Immunologic: Denies throat swelling [facility] Medical History (Updated 05/25/20 @ 14:03 by Damaris Bishop DO) Asthma Diabetes Migraine PCOS (polycystic ovarian syndrome) Small bowel obstruction Surgical History History of brain surgery Hydrocephalus as an infant History of placement of ear tubes Social History Smoking/Tobacco Use Status: Never Smoking risk assessment performed?: Yes Alcohol Intake: never Drug use: Never Substance use type: does not use Do you feel safe at home: Yes Do you feel safe in your relationship?: Yes Exam Const General: cooperative, healthy appearing and no acute distress HENMT Head: normal to inspection Face and sinus: normal facial exam Eyes General: appearance normal, both eyes and all related structures EOM: EOM intact bilaterally Neck Neck: normal visual inspection and No submandibular swelling Lymphatic: no lymphadenopathy noted Chest Chest: normal inspection of the chest and no tenderness Resp Effort & Inspection: normal respiratory effort and able to speak in complete sentences Auscultation: clear to auscultation bilaterally Cardio Rate: regular rate Rhythm: regular rhythm GI Inspection: normal to inspection and obesity Palpation: soft, not firm, not rigid and nontender Auscultation: normal bowel sounds Back/Spine/Pelvis Back: no CVA tenderness Thoracic/Lumbar Spine: thoracic and lumbar spine normal to inspection Pelvis: no pain with anterior-posterior compression Skin General skin exam: no rashes or lesions noted Neuro General: patient alert, patient awake and patient oriented x3 Cognition: normal cognition Speech: speech normal Motor: muscle tone normal throughout Sensory Exam: no sensory deficits noted Extrem General: normal to inspection, full ROM, capillary refill normal, no calf tenderness bilaterally and no edema Psych Appearance: grossly normal Mental Status: mental status grossly normal Speech and Movement: speech and movement normal Affect: normal affect Course Vital Signs Vital signs: Vital Signs Temperature 97.7 F 05/25/20 12:48 Pulse 86 05/25/20 12:48 Respiratory Rate 20 05/25/20 12:48 Blood Pressure 136/93 H 05/25/20 12:48 Pulse Oximetry 99 05/25/20 12:48 Temperature 97.7 F 05/25/20 12:48 Temperature Source Temporal Artery Scan 05/25/20 12:48 Pulse 86 05/25/20 12:48 Respiratory Rate 20 05/25/20 12:48 Blood Pressure 136/93 H 05/25/20 12:48 Pulse Oximetry 99 05/25/20 12:48 Oxygen Delivery Method Room Air 05/25/20 12:48 Oxygen Flow Rate 0 05/25/20 12:48 Pain Level 5 05/25/20 12:48 Lab/Test Results Lab/Test Results: Laboratory Tests Range/Units 05/25/20 12:37 Urine Color (Yellow) Yellow Urine Clarity (Clear) Clear Urine pH (5-8) 6.0 Ur Specific [place] (1.005-1.025) >= 1.030 H Urine Protein (Negative) mg/dL Negative Urine Ketones (Negative) mg/dL Negative Urine Blood (Negative) Trace-intact H Urine Nitrite (Negative) Negative Urine Bilirubin (Negative) Negative Urine Urobilinogen (Up TO 0.2) EU/dL 0.2 Ur Leukocyte Esterase (Negative) Negative Urine RBC (0-2) HPF 0-2 Urine WBC (0-5) HPF 0-2 Ur Epithelial Cells (Negative) HPF Moderate Urine Crystals (Negative) HPF Negative Urine Bacteria (Negative) HPF Few Urine Casts (Negative) LPF Negative Urine Mucus (Negative) Trace Ur Culture Indicated? No/sq. contamination Urine Glucose (Negative) mg/dL Negative
== END 2020-05-25 14:27 | disposition home or self-care (01) ==
PROVIDERS: Emergency Provider Physician Assistant
DX: R30.0 Dysuria (principal); R35.0 Frequency of micturition; R39.15 Urgency of urination; E11.9 Type 2 diabetes mellitus without complications; Z79.84 Long term (current) use of oral hypoglycemic drugs; Z87.440 Personal history of urinary (tract) infections
CPT/HCPCS: 99283; 81003; 81015; 99284

== ENCOUNTER 2020-07-07 10:10 | Outpatient (CLI) | payer MEDICARE, SELFPAY ==
[2020-07-07 12:50] LABS: Hemoglobin A1C 5.8 % (<5.7)
[2020-07-07 12:52] LABS: ALT 60 U/L (14-59); AST 18 U/L (15-37); Albumin 3.8 g/dL (3.4-5.0); Alkaline Phosphatase 127 U/L (46-116); Anion Gap 7.7 mmol/L (3-11); BUN 17 mg/dL (7-18); Bilirubin, Total 0.2 mg/dL (0.2-1.0); CO2 26.3 mmol/L (21.0-32.0); Calcium 9.5 mg/dL (8.5-10.1); Calculated LDL 169 mg/dL (<100); Chloride 107 mmol/L (98-107); Cholesterol 250 mg/dL (<200); Glucose 72 mg/dL (74-106); HDL Cholesterol 50 mg/dL (40-60); Potassium 4.5 mmol/L (3.5-5.1); Sodium 141 mmol/L (136-145); Total Protein 7.2 g/dL (6.4-8.2); Triglyceride 158 mg/dL (<150)
== END 2020-07-07 10:11 | disposition home or self-care (01) ==
LOC: LOS 10:11
DX: E11.9 Type 2 diabetes mellitus without complications (principal); Z13.220 Encounter for screening for lipoid disorders
CPT/HCPCS: 36415; 80053; 80061; 83036

== ENCOUNTER 2020-07-07 11:33 | Outpatient (REF) | payer MEDICARE, SELFPAY ==
--- NOTE | 2020-07-07 09:20 | PAPFT_PTH ---
PATIENT: Radha Moya LOC: [facility] U#:[id number] AGE/SX: 40/F ROOM: RE07/07/[address]: Elizabeth Cook APRN : 1980 BED: DIS: 07/07/2020 SPEC #: [id number] RECD: 07/07/20 13:03 STATUS: RICARDO PHILLIPS #: [id number] DAJUAN: 07/07/20 09:[address]: Elizabeth Cook DEPT: [facility] Cytology RECD BY: Breann Fierro Tissues: 1 - CX/ENDOCX FOR PAP SMEARS Procedures: PAP THIN PREP/UVM Screening HPV DNA PROBE Comments: [id number]
== END 2020-07-07 11:34 | disposition home or self-care (01) ==
LOC: LBN 11:33
DX: Z12.4 Encounter for screening for malignant neoplasm of cervix (principal); Z11.51 Encounter for screening for human papillomavirus (HPV)
CPT/HCPCS: 88142; 87624

== ENCOUNTER 2020-12-13 13:21 | Emergency (ER) | payer MEDICARE, SELFPAY ==
[2020-12-13 13:28] VITALS: BP 129/76; PULSE 88; RESP 18; TEMP 36.4; O2SAT 96
--- NOTE | 2020-12-13 13:49 | W.ED.GENAD ---
Discharge Plan Disposition Patient Disposition: HOME Condition: Stable Discharge Details Clinical Impression: Dental infection Primary Care Provider: Wallace Negron ED Provider: Tavo Herndon Home Meds and New Rx's Prescriptions: New amoxicillin 875 mg tablet 875 mg PO BID Qty: 20 RF: 0 Continued promethazine 25 mg tablet 25 mg PO TID PRNRF: 0 ferrous sulfate 325 mg (65 mg iron) tablet 325 mg PO DAILY RF: 0 polyethylene glycol 3350 [Miralax] 17 gram/dose powder 17 g PO DAILY RF: 0 atorvastatin 10 mg tablet 10 mg PO QPM Qty: 90 RF: 3 fluoxetine 20 mg capsule 40 mg PO DAILY Qty: 60 RF: 12 albuterol sulfate 90 mcg/actuation HFA aerosol inhaler 1 puff inhalation ONCE PRN (Reason: bronchospasm) Qty: 8.5 RF: 5 lorazepam 0.5 mg tablet 0.5 mg PO TID PRN (Reason: anxiety) Qty: 60 RF: 3 baclofen 10 mg tablet 10 mg PO TID Qty: 90 RF: 1 acetaminophen-codeine 300-30 mg tablet 1 tab PO TID PRN (Reason: pain) Qty: 90 RF: 0 metformin 500 MG tablet 500 mg PO BID RF: 0 albuterol sulfate [Proventil HFA] 200 PUFF HFA aerosol inhaler 2 puff Inhalation Q4H PRN PRNRF: 0 esomeprazole magnesium 40 mg capsule,delayed release(DR/EC) 40 mg PO BID RF: 0 Discontinued amoxicillin-pot clavulanate [Augmentin] 875-125 mg tablet 1 tab PO Q12H Qty: 14 RF: 0 Discharge Instructions Instructions: Dental Abscess (ED) Additional Instructions: Amoxicillin as directed. Dthq-mdz-fiwhvzx medications as Tylenol and/or Motrin as directed for discomfort. Cool and/or warm compresses every 2 hours for 20 minutes. Please watch for new or worsening symptoms and return to the ER for any concerns. Lastly, I do recommend reaching out your dentist when their office is open to set up outpatient appointment Medical Decision Making 40-year-old female presents with left upper dental pain over the past few days. Clinically she appears well, nontoxic, afebrile, no trismus. Able to manage secretions but difficulty. Airway is patent. Patient unable to see her dentist until at least next . Looking at her allergy list, we discussed antibiotic therapy, she cannot take penicillins. Will give first dose of amoxicillin now provide a prescription. Patient is comfortable this plan and has no additional questions or concerns Medical Records Medical records reviewed: Yes I reviewed the patient's medical records. HPI General Mode of arrival: ambulatory. Date/Time Provider Initiated Documentation: 12/13/20 13:39. Limitations to Documentation: no limitations. Information obtained by: patient. HPI Narrative: This is a 40-year-old female, past medical history that includes diabetes, GERD, anxiety, depression, presenting to the ER for evaluation of potential dental infection. Patient is not a smoker. She reports left upper dental pain over the past 2 or 3 days. Denies fever, headache, ear pain, difficulty speaking or swallowing. She has not taken any vyqa-icn-aaxlvna medication for her symptoms. She did reach out to her dentist however they cannot see her until at least next . Related Data Home Medications Medication Instructions Recorded Confirmed metformin 500 mg PO BID 07/12/12 12/13/20 albuterol sulfate [Proventil HFA] 2 puff INHALATION Q4H PRN PRN 09/26/16 12/13/20 esomeprazole magnesium 40 mg PO BID 09/23/19 12/13/20 promethazine 25 mg tablet 25 mg PO TID PRN 07/07/20 12/13/20 ferrous sulfate 325 mg (65 mg 325 mg PO DAILY 07/16/20 12/13/20 iron) tablet polyethylene glycol 3350 17 17 g PO DAILY 07/16/20 12/13/20 gram/dose oral powder atorvastatin 10 mg tablet 10 mg PO QPM #90 tab 07/17/20 12/13/20 fluoxetine 20 mg capsule 40 mg PO DAILY #60 cap 08/11/20 12/13/20 albuterol sulfate 90 mcg/actuation 1 puff INHALATION ONCE PRN #8.5 g 10/15/20 12/13/20 aerosol inhaler lorazepam 0.5 mg tablet 0.5 mg PO TID PRN #60 tab 11/06/20 12/13/20 baclofen 10 mg tablet 10 mg PO TID #90 tab 11/07/20 12/13/20 acetaminophen 300 mg-codeine 30 mg 1 tab PO TID PRN #90 tab 11/26/20 12/13/20 tablet amoxicillin 875 mg PO BID #20 tab 12/13/20 Previous Rx's Medication Instructions Recorded atorvastatin 10 mg tablet 10 mg PO QPM #90 tab 07/17/20 fluoxetine 20 mg capsule 40 mg PO DAILY #60 cap 08/11/20 albuterol sulfate 90 mcg/actuation 1 puff INHALATION ONCE PRN #8.5 g 10/15/20 aerosol inhaler lorazepam 0.5 mg tablet 0.5 mg PO TID PRN #60 tab 11/06/20 baclofen 10 mg tablet 10 mg PO TID #90 tab 11/07/20 acetaminophen 300 mg-codeine 30 mg 1 tab PO TID PRN #90 tab 11/26/20 tablet amoxicillin 875 mg PO BID #20 tab 12/13/20 Allergies Allergy/AdvReac Type Severity Reaction Status Date / Time cephalexin monohydrate Allergy Severe Anaphylaxsi Verified 12/13/20 13:33 [From Keflex] s nitrofurantoin Allergy Severe Anaphylaxsi Verified 12/13/20 13:33 [From Macrobid] s Sulfa (Sulfonamide Allergy Severe Anaphylaxsi Verified 12/13/20 13:33 Antibiotics) s topiramate [From Topamax] Allergy Severe Anaphylaxsi Verified 12/13/20 13:33 s ibuprofen Allergy Mild Hives Verified 12/13/20 13:33 cefazolin Allergy Unknown Other (See Verified 12/13/20 13:33 Comment) celecoxib [From Celebrex] Allergy Unknown Hives Verified 12/13/20 13:33 duloxetine [From Cymbalta] Allergy Unknown Swelling/Ed Verified 12/13/20 13:33 bert naproxen Allergy Unknown Hives Verified 12/13/20 13:33 pregabalin [From Lyrica] Allergy Unknown Swelling/Ed Verified 12/13/20 13:33 bert wheat Allergy Unknown Verified 12/13/20 13:33 gabapentin AdvReac Intermediate Heart Verified 12/13/20 13:33 Races, per pt General Stated Complaint: DentalOral NICOLE: 4 Review of Systems Constitutional Constitutional: Denies fever(s) and Denies headache(s) ENT Ears, Nose, Mouth, and Throat: Denies headache(s) and Denies neck pain Respiratory Respiratory: Denies cough Musculoskeletal Musculoskeletal: Denies neck pain Integumentary/Breasts Skin/Breast: Denies erythema and Denies rash Neurologic Neurologic: Denies headache(s) [facility] Medical History Anxiety with depression Asthma Carpal tunnel syndrome of right wrist Chronic GERD Chronic pain disorder Dandy-Walker syndrome Diabetes H/O migraine Hiatal hernia Hydrocephalus s/p [employer] shunting, revision at age 1 Hyperreflexia Increased body mass index (BMI) Learning disability Leg cramping Migraine Other specified polyneuropathies PCOS (polycystic ovarian syndrome) Peripheral sensory neuropathy (~11/08/19) PTSD (post-traumatic stress disorder) Routine gynecological examination Small bowel obstruction Somatoform disorder Type 2 diabetes mellitus without complications Unspecified disorder of eye movements Verruca warts (infectious) Surgical History H/O esophagogastroduodenoscopy (~05/09/10) [facility] [place] History of brain surgery Hydrocephalus as an infant History of placement of ear tubes S/P [employer] shunt (~05/09/08) Last revision 2008 Family History Mother No problems noted. Father No problems noted. Maternal Grandfather No problems noted. Paternal Grandfather No problems noted. Maternal Grandmother No problems noted. Paternal Grandmother No problems noted. Social History Smoking/Tobacco Use Status: Never Second Hand Exposure: Yes Smoking risk assessment performed?: Yes Alcohol Intake: never Drug use: Never Substance use type: does not use Counseling given: No Counseling provided: none Household members: spouse Pets and animals: Yes Pets and animals: cat(s) How often do you talk on the phone with friends or family?: three or more times per week How often do you get together with friends or relatives?: three or more times per week Do you belong to any clubs or organized social groups?: no Panel score (0-1 are the most socially isolated patients): 1 What type of physical activity do you participate in: none Do you feel safe at home: Yes Do you feel safe in your relationship?: Yes Exam Const General: cooperative, healthy appearing, comfortable and no acute distress Orientation: alert and awake [facility] Head: normal to inspection, normocephalic and atraumatic Ears: external ears normal, TM's normal bilaterally and EAC's normal Face images: 1. Mild discomfort to palpation. There is no obvious swelling, erythema, warmth, trismus, fluctuance or induration Mouth: moist mucous membranes Teeth and gingiva: fair dentition Teeth image: 1. Dental fracture, diffuse mild discomfort. No pointing abscess or drainage Throat: posterior oropharynx normal Eyes General: appearance normal, both eyes and all related structures Conjunctivae: conjunctivae normal Neck Neck: normal visual inspection, full ROM, no lymphadenopathy, trachea midline, supple and nontender Resp Effort & Inspection: normal respiratory effort and able to speak in complete sentences Auscultation: clear to auscultation bilaterally Cardio Rate: regular rate Rhythm: regular rhythm Skin General skin exam: no rashes or lesions noted Neuro General: patient alert, patient awake, moves all extremities and no focal motor deficits Sensory Exam: no sensory deficits noted Psych Appearance: grossly normal Mental Status: mental status grossly normal Course Vital Signs Vital signs: Vital Signs Temperature 36.4 C L 12/13/20 13:28 Pulse 88 12/13/20 13:28 Respiratory Rate 18 12/13/20 13:28 Blood Pressure 129/76 12/13/20 13:28 Pulse Oximetry 96 12/13/20 13:28 Temperature 36.4 C L 12/13/20 13:28 Temperature Source Temporal Artery Scan 12/13/20 13:28 Pulse 88 12/13/20 13:28 Respiratory Rate 18 12/13/20 13:28 Respiratory Effort Non-Labored 12/13/20 13:28 Blood Pressure 129/76 12/13/20 13:28 Blood Pressure Position Sitting 12/13/20 13:28 Pulse Oximetry 96 12/13/20 13:28 Oxygen Delivery Method Room Air 12/13/20 13:28 Oxygen Flow Rate 0 12/13/20 13:28 Pain Level 10 12/13/20 13:28
[2020-12-13] MEDS: Amoxicillin 875 MG TAB PO (14:05)
[2020-12-13] MEDS: Carbamide Peroxide 15 ML BTL (14:25)
== END 2020-12-13 14:53 | disposition home or self-care (01) ==
PROVIDERS: Emergency Provider Physician Assistant; PCP Nurse Practitioner Family
DX: K04.7 Periapical abscess without sinus (principal)
CPT/HCPCS: 99283

== ENCOUNTER 2021-01-28 17:30 | Emergency (ER) | payer MEDICARE, SELFPAY ==
[2021-01-28 17:41] VITALS: BP 130/96; PULSE 91; TEMP 36.3; O2SAT 97
--- NOTE | 2021-01-28 18:00 | DI.RAD_ITS ---
Exam(s) XR PORTABLE CHEST AP EXAM: XR PORTABLE CHEST AP CLINICAL HISTORY: fever, cough. TECHNIQUE: 2D digital imaging was performed. COMPARISON: CR ABD FLAT UPRIGHT PA CHEST from 11/02/2017 FINDINGS: Heart size is upper normal. The mediastinum is not widened. Lungs are clear. No infiltrates nor obvious pleural effusions. Tenting of the right hemidiaphragm is unchanged from 10/24 IMPRESSION: No acute pulmonary findings on this single AP portable view of the chest.No significant change compar ed to October 2017. DATA REPOSITORY: RADIATION DOSE DELIVERED: All CT scans at this facility use at least one of these dose optimization techniques: automated exposure control; mA and/or kV adjustment per patient size (includes targeted e xams where dose is matched to clinical indication); or iterative reconstruction.
[2021-01-28 18:18] LABS: Source Nasal/Nares
[2021-01-28 18:20] LABS: HCT 41.2 % (36.0-46.0); HGB 13.5 g/dL (11.2-15.7); MCH 29.5 pg (27.0-33.0); MCHC 32.8 % (32.0-36.0); MPV 10.6 fL (8.0-11.0); Platelet Count 294 10^3/uL (130-400); RBC 4.58 10^6/uL (3.93-5.22); RDW 12.2 % (11.7-14.6); RDW-SD 39.7 fL; WBC 9.32 10^3/uL (4.4-10.8)
--- NOTE | 2021-01-28 18:21 | ED.GENADUL_ITS ---
Discharge Plan Disposition Patient Disposition: HOME Condition: Improving Discharge Details Clinical Impression: URI (upper respiratory infection) Primary Care Provider: Wallace Negron ED Provider: Jaya Barcenas Home Meds and New Rx's Prescriptions: Continued ferrous sulfate 325 mg (65 mg iron) tablet 325 mg PO DAILY RF: 0 polyethylene glycol 3350 [Miralax] 17 gram/dose powder 17 g PO DAILY PRNRF: 0 atorvastatin 10 mg tablet 10 mg PO QPM Qty: 90 RF: 3 fluoxetine 20 mg capsule 40 mg PO DAILY Qty: 60 RF: 12 albuterol sulfate 90 mcg/actuation HFA aerosol inhaler 1 puff inhalation ONCE PRN (Reason: bronchospasm) Qty: 8.5 RF: 5 metformin 500 mg tablet 500 mg PO BID Qty: 180 RF: 3 baclofen 10 mg tablet 10 mg PO TID Qty: 90 RF: 1 lorazepam 0.5 mg tablet 0.5 mg PO TID PRN (Reason: anxiety) Qty: 60 RF: 3 promethazine 25 mg tablet 25 mg PO TID PRN (Reason: nausea and vomiting) Qty: 30 RF: 0 acetaminophen-codeine 300-30 mg tablet 1 tab PO TID PRN (Reason: pain) Qty: 90 RF: 0 acetaminophen-codeine 300-30 mg tablet 1 tab PO TID PRNRF: 0 esomeprazole magnesium 40 mg capsule,delayed release(DR/EC) 40 mg PO BID RF: 0 Discharge Instructions Instructions: Upper Respiratory Infection (ED) Additional Instructions: Home to rest today. Small, frequent sips of fluids so that you maintain good hydration. Tylenol as needed for aches, pains, fever. Your chest x-ray today had no acute findings. Your blood work was reassuring. Your COVID-19 test Medical Decision Making 40-year-old female presents from home. She has had 3 days of upper respiratory illness with cough, congestion, body ache, fever and chills and sore throat. Her has a similar illness. She arrives to the ER with a temp of 36.3, pulse 91, blood pressure 130/96, oxygen 97%. Consistent with mild viral syndrome. Patient given acetaminophen, fluid bolus, referred for COVID-19 screening and laboratories and chest x-ray. Laboratories are reassuring, white blood cell count 9, hematocrit 41, platelets 294. Chemistries within normal limits. COVID-19 negative. Chest x-ray without acute findings. Patient improved with fluids and Tylenol. Her work-up is reassuring and her Covid test is negative. She will be discharged home. HPI General Mode of arrival: ambulatory . Date/Time Provider Initiated Documentation: 01/28/21 17:33 . Limitations to Documentation: no limitations . Information obtained by: patient . History of Present Illness 40 year old F presents to the emergency department with the chief complaint of Upper respiratory illness 3 days, described as mild and moderate, Quality is described as dull, and is localized to the chest. Patient reports no radiation. Patient started experiencing this day(s) and it has been constant. No relieving factors improve symptom(s), No exacerbating factors reported . Patient notes cough, fever/chills and malaise; denies nausea/vomiting and syncope. Patient did receive the following treatments prior to arrival, none Related Data Home Medications Medication Instructions Recorded Confirmed esomeprazole magnesium 40 mg PO BID 09/23/19 01/28/21 ferrous sulfate 325 mg (65 mg 325 mg PO DAILY 07/16/20 01/28/21 iron) tablet polyethylene glycol 3350 17 17 g PO DAILY PRN 07/16/20 01/28/21 gram/dose oral powder atorvastatin 10 mg tablet 10 mg PO QPM #90 tab 07/17/20 01/28/21 fluoxetine 20 mg capsule 40 mg PO DAILY #60 cap 08/11/20 01/28/21 albuterol sulfate 90 mcg/actuation 1 puff INHALATION ONCE PRN #8.5 g 10/15/20 01/28/21 aerosol inhaler metformin 500 mg tablet 500 mg PO BID #180 tab 12/29/20 01/28/21 baclofen 10 mg tablet 10 mg PO TID #90 tab 01/19/21 01/28/21 lorazepam 0.5 mg tablet 0.5 mg PO TID PRN #60 tab 01/19/21 01/28/21 promethazine 25 mg tablet 25 mg PO TID PRN #30 tab 01/19/21 01/28/21 acetaminophen 300 mg-codeine 30 mg 1 tab PO TID PRN #90 tab 01/28/21 01/28/21 tablet acetaminophen-codeine 1 tab PO TID PRN 01/28/21 01/28/21 Previous Rx's Medication Instructions Recorded atorvastatin 10 mg tablet 10 mg PO QPM #90 tab 07/17/20 fluoxetine 20 mg capsule 40 mg PO DAILY #60 cap 08/11/20 albuterol sulfate 90 mcg/actuation 1 puff INHALATION ONCE PRN #8.5 g 10/15/20 aerosol inhaler metformin 500 mg tablet 500 mg PO BID #180 tab 12/29/20 baclofen 10 mg tablet 10 mg PO TID #90 tab 01/19/21 lorazepam 0.5 mg tablet 0.5 mg PO TID PRN #60 tab 01/19/21 promethazine 25 mg tablet 25 mg PO TID PRN #30 tab 01/19/21 acetaminophen 300 mg-codeine 30 mg 1 tab PO TID PRN #90 tab 01/28/21 tablet Allergies Allergy/AdvReac Type Severity Reaction Status Date / Time cephalexin monohydrate Allergy Severe Anaphylaxsi Verified 01/28/21 17:48 [From Keflex] s nitrofurantoin Allergy Severe Anaphylaxsi Verified 01/28/21 17:48 [From Macrobid] s Sulfa (Sulfonamide Allergy Severe Anaphylaxsi Verified 01/28/21 17:48 Antibiotics) s topiramate [From Topamax] Allergy Severe Anaphylaxsi Verified 01/28/21 17:48 s ibuprofen Allergy Mild Hives Verified 01/28/21 17:48 cefazolin Allergy Unknown Other (See Verified 01/28/21 17:48 Comment) celecoxib [From Celebrex] Allergy Unknown Hives Verified 01/28/21 17:48 duloxetine [From Cymbalta] Allergy Unknown Swelling/Ed Verified 01/28/21 17:48 bert naproxen Allergy Unknown Hives Verified 01/28/21 17:48 pregabalin [From Lyrica] Allergy Unknown Swelling/Ed Verified 01/28/21 17:48 bert wheat Allergy Unknown Verified 01/28/21 17:48 gabapentin AdvReac Intermediate Heart Verified 01/28/21 17:48 Races, per pt General Stated Complaint: RespSymp NICOLE: 3 Review of Systems Narrative: Not immunized for COVID-19. No vomiting. No diarrhea. Her has been ill with similar illness. 8 systems reviewed and otherwise negative. [facility] Medical History Anxiety with depression Asthma Carpal tunnel syndrome of right wrist Chronic GERD Chronic pain disorder Dandy-Walker syndrome Diabetes H/O migraine Hiatal hernia Hydrocephalus s/p [employer] shunting, revision at age 1 Hyperreflexia Increased body mass index (BMI) Learning disability Leg cramping Migraine Other specified polyneuropathies PCOS (polycystic ovarian syndrome) Peripheral sensory neuropathy (~11/08/19) PTSD (post-traumatic stress disorder) Routine gynecological examination Small bowel obstruction Somatoform disorder Type 2 diabetes mellitus without complications Unspecified disorder of eye movements Verruca warts (infectious) Surgical [place]05[place]09/10[place] [facility] [place] of brain surgery Hydrocephalus as an infant History of placement of ear tubes S/P [employer] shunt (~05/09/08) Last revision 2008 Family History Mother No problems noted. Father No problems noted. Maternal Grandfather No problems noted. Paternal Grandfather No problems noted. Maternal Grandmother No problems noted. Paternal Grandmother No problems noted. Social History Smoking/Tobacco Use Status: Never Second Hand Exposure: Yes Smoking risk assessment performed?: Yes Alcohol Intake: never Drug use: Never Substance use type: does not use Counseling given: No Counseling provided: none Household members: spouse Pets and animals: Yes Pets and animals: cat(s) How often do you talk on the phone with friends or family?: three or more times per week How often do you get together with friends or relatives?: three or more times per week Do you belong to any clubs or organized social groups?: no Panel score (0-1 are the most socially isolated patients): 1 What type of physical activity do you participate in: none Do you feel safe at home: Yes Do you feel safe in your relationship?: Yes Exam Narrative Exam Narrative: GEN: awake, alert, oriented 3. Pleasant, well groomed, interactive. HEAD: Normocephalic, atraumatic ENT: Mucous membranes dry, oropharynx unremarkable, External ear exam unremarkable EYES: PERRL, EOMI NECK: Full ROM, no BOUCHRA, no menigismus CHEST/RESP: Nontender, clear to auscultation bilateral, no wheeze/rhonchi/rales CARDIOVASCULAR: RRR, no murmur, rub ivy. 2+ Rad pulse bilateral ABDOMEN: Soft, nontender, no mass. +Bowel sounds EXT: Full ROM, no edema, no rash Neuro: Grossly normal neurologic exam, conversant, interactive. Psych: Speech fluent, thoughts congruent, affect normal Course Vital Signs Vital signs: Vital Signs Temperature 36.3 C L 01/28/21 17:41 Pulse 91 H 01/28/21 17:41 Blood Pressure 130/96 H 01/28/21 17:41 Pulse Oximetry 97 01/28/21 17:41 Temperature 36.3 C L 01/28/21 17:41 Temperature Source Temporal Artery Scan 01/28/21 17:41 Pulse 91 H 01/28/21 17:41 Respiratory Effort Non-Labored 01/28/21 17:46 Respiratory Depth Normal 01/28/21 17:44 Blood Pressure 130/96 H 01/28/21 17:41 Blood Pressure Position Sitting 01/28/21 17:41 Pulse Oximetry 97 01/28/21 17:41 Oxygen Delivery Method Room Air 01/28/21 17:41 Oxygen Flow Rate 0 01/28/21 17:41 Pain Level 7 01/28/21 17:41 Lab/Test Results Lab/Test Results: Laboratory Tests Range/Units 01/28/21 17:56 COVID-19 Source Nasal/Nares
[2021-01-28 18:26] LABS: Anion Gap 6.5 mmol/L (3-11); BUN 14 mg/dL (7-18); CO2 30.5 mmol/L (21.0-32.0); Calcium 9.3 mg/dL (8.5-10.1); Chloride 104 mmol/L (98-107); Glucose 88 mg/dL (74-106); Potassium 3.7 mmol/L (3.5-5.1); Sodium 141 mmol/L (136-145)
[2021-01-28] MEDS: Acetaminophen 500 MG TAB 1000 MG PO (18:58)
[2021-01-28] MEDS: Normal Saline 1,000 ML 1000 ML IV (18:58)
--- NOTE | 2021-01-28 19:36 | DI.VRAD_ITS ---
PROCEDURE INFORMATION: Exam: XR Chest Exam date and time: 01/28/2021 6:09 PM Age: 40 years old Clinical indication: Cough and fever TECHNIQUE: Imaging protocol: XR of the chest. Views: 1 view. COMPARISON: CT CHEST/ABD/PEL W 07/18/2018 7:54 AM FINDINGS: Lungs: Unremarkable. No consolidation. Pleural spaces: Unremarkable. No pleural effusion. No pneumothorax. Heart/Mediastinum: Unremarkable. No cardiomegaly. Bones/joints: Unremarkable. IMPRESSION: No acute findings. Dictated and Authenticated by: Jeffry Hidalgo MD. Ordering:ORI Lake MD
[2021-01-28 22:13] LABS: COVID-19 PCR Negative (Negative)
== END 2021-01-28 20:24 | disposition home or self-care (01) ==
PROVIDERS: Emergency Provider Emergency Medicine; PCP Nurse Practitioner Family
DX: J06.9 Acute upper respiratory infection, unspecified (principal); R50.9 Fever, unspecified
CPT/HCPCS: 36415; 80048; 85027; 87635; 87880; 96360; 99284; 71045; 87081; 99283

== ENCOUNTER 2021-03-22 15:48 | Emergency (ER) | payer MEDICARE, SELFPAY ==
[2021-03-22 15:53] VITALS: BP 132/85; PULSE 94; RESP 18; O2SAT 100
[2021-03-22 16:20] LABS: Bilirubin Negative (Negative); Blood Large (Negative); Clarity Cloudy (Clear); Glucose Negative (Negative); Ketones Negative (Negative); Leukocyte Esterase Small (Negative); Nitrite Negative (Negative); Specific Gravity > 1.030 (1.005-1.025); Urobilinogen 0.2 EU/dL (Up TO 0.2); pH 5.5 (5-8)
[2021-03-22 16:44] LABS: Bacteria Few HPF (Negative); C & S Indicated? No/Sq. Contamination; Crystals Negative HPF (Negative); Epithelial Cells Many HPF (Negative); Mucus Negative (Negative); RBC >50 HPF (0-2); WBC 20-50 HPF (0-5)
--- NOTE | 2021-03-22 17:16 | ED.GENADUL_ITS ---
Discharge Plan Disposition Patient Disposition: HOME Condition: Good Discharge Details Clinical Impression: Dysuria Primary Care Provider: Wallace Negron ED Provider: Breann Man Home Meds and New Rx's Prescriptions: New phenazopyridine [Pyridium] 200 mg tablet 200 mg PO TID Qty: 10 RF: 0 Continued ferrous sulfate 325 mg (65 mg iron) tablet 325 mg PO DAILY RF: 0 polyethylene glycol 3350 [Miralax] 17 gram/dose powder 17 g PO DAILY PRNRF: 0 atorvastatin 10 mg tablet 10 mg PO QPM Qty: 90 RF: 3 fluoxetine 20 mg capsule 40 mg PO DAILY Qty: 60 RF: 12 albuterol sulfate 90 mcg/actuation HFA aerosol inhaler 1 puff inhalation ONCE PRN (Reason: bronchospasm) Qty: 8.5 RF: 5 metformin 500 mg tablet 500 mg PO BID Qty: 180 RF: 3 baclofen 10 mg tablet 10 mg PO TID Qty: 90 RF: 1 lorazepam 0.5 mg tablet 0.5 mg PO TID PRN (Reason: anxiety) Qty: 60 RF: 3 promethazine 25 mg tablet 25 mg PO TID PRN (Reason: nausea and vomiting) Qty: 30 RF: 0 acetaminophen-codeine 300-30 mg tablet 1 tab PO TID PRN (Reason: pain) Qty: 90 RF: 0 acetaminophen-codeine 300-30 mg tablet 1 tab PO TID PRNRF: 0 esomeprazole magnesium 40 mg capsule,delayed release(DR/EC) 40 mg PO BID RF: 0 Discharge Instructions Instructions: Dysuria (ED) Additional Instructions: Year has symptoms consistent with urinary tract infection, however your urinalysis does not show evidence of obvious infection process I recommended CAT scan and labs which you have declined at this time as he preferred. Attempt outpatient antibiotics You will return should you have have persistent symptoms tomorrow Should you have new or worsening complaints, return immediately for reassessment Recommend recheck in 24 hours Referrals: Wallace Negron, [employer]CRE[employer]INT[employer] [Primary Care Provider] - Medical Decision Making Patient appears well, she is alert, oriented, of decisional capacity, she is adamantly declining any diagnostic blood work or imaging at this time, but with my recommendations Unfortunately her initial urinalysis and micro analysis was contaminated we had to repeat it, she is requesting discharge home with antibiotics, I did discuss obvious urinary tract infection and she is aware that I would like to do additional evaluation, she again is declining any additional testing at this time, she is alert, oriented, and competent to make this decision Return cautions discussed and patient expressed understanding Medical Records Medical records reviewed: Yes I reviewed the patient's medical records. HPI General Mode of arrival: ambulatory . Date/Time Provider Initiated Documentation: 03/22/21 16:29 . Limitations to Documentation: no limitations . Information obtained by: patient . HPI Narrative: this 40 you female presents with dysuria and frequency. Denies any chest pain, shortness of breath, nausea, vomiting, dizziness, weakness, or any additional time. Denies alleviating factors. States that urinating exacerbates her symptoms. Patient states sexually active and monogamous. Denies chance of . States her symptoms are identical to prior urinary tract infections. Related Data Home Medications Medication Instructions Recorded Confirmed esomeprazole magnesium 40 mg PO BID 09/23/19 03/22/21 ferrous sulfate 325 mg (65 mg 325 mg PO DAILY 07/16/20 03/22/21 iron) tablet polyethylene glycol 3350 17 17 g PO DAILY PRN 07/16/20 03/22/21 gram/dose oral powder atorvastatin 10 mg tablet 10 mg PO QPM #90 tab 07/17/20 03/22/21 fluoxetine 20 mg capsule 40 mg PO DAILY #60 cap 08/11/20 03/22/21 albuterol sulfate 90 mcg/actuation 1 puff INHALATION ONCE PRN #8.5 g 10/15/20 03/22/21 aerosol inhaler metformin 500 mg tablet 500 mg PO BID #180 tab 12/29/20 03/22/21 baclofen 10 mg tablet 10 mg PO TID #90 tab 01/19/21 03/22/21 lorazepam 0.5 mg tablet 0.5 mg PO TID PRN #60 tab 01/19/21 03/22/21 promethazine 25 mg tablet 25 mg PO TID PRN #30 tab 01/19/21 03/22/21 acetaminophen-codeine 1 tab PO TID PRN 01/28/21 03/22/21 acetaminophen 300 mg-codeine 30 mg 1 tab PO TID PRN #90 tab 03/04/21 03/22/21 tablet phenazopyridine [Pyridium] 200 mg PO TID #10 tab 03/22/21 Previous Rx's Medication Instructions Recorded atorvastatin 10 mg tablet 10 mg PO QPM #90 tab 07/17/20 fluoxetine 20 mg capsule 40 mg PO DAILY #60 cap 08/11/20 albuterol sulfate 90 mcg/actuation 1 puff INHALATION ONCE PRN #8.5 g 10/15/20 aerosol inhaler metformin 500 mg tablet 500 mg PO BID #180 tab 12/29/20 baclofen 10 mg tablet 10 mg PO TID #90 tab 01/19/21 lorazepam 0.5 mg tablet 0.5 mg PO TID PRN #60 tab 01/19/21 promethazine 25 mg tablet 25 mg PO TID PRN #30 tab 01/19/21 acetaminophen 300 mg-codeine 30 mg 1 tab PO TID PRN #90 tab 03/04/21 tablet phenazopyridine [Pyridium] 200 mg PO TID #10 tab 03/22/21 Allergies Allergy/AdvReac Type Severity Reaction Status Date / Time cephalexin monohydrate Allergy Severe Anaphylaxsi Verified 03/22/21 15:54 [From Keflex] s nitrofurantoin Allergy Severe Anaphylaxsi Verified 03/22/21 15:54 [From Macrobid] s Sulfa (Sulfonamide Allergy Severe Anaphylaxsi Verified 03/22/21 15:54 Antibiotics) s topiramate [From Topamax] Allergy Severe Anaphylaxsi Verified 03/22/21 15:54 s ibuprofen Allergy Mild Hives Verified 03/22/21 15:54 cefazolin Allergy Unknown Other (See Verified 03/22/21 15:54 Comment) celecoxib [From Celebrex] Allergy Unknown Hives Verified 03/22/21 15:54 duloxetine [From Cymbalta] Allergy Unknown Swelling/Ed Verified 03/22/21 15:54 bert naproxen Allergy Unknown Hives Verified 03/22/21 15:54 pregabalin [From Lyrica] Allergy Unknown Swelling/Ed Verified 03/22/21 15:54 bert wheat Allergy Unknown Verified 03/22/21 15:54 gabapentin AdvReac Intermediate Heart Verified 03/22/21 15:54 Races, per pt General Stated Complaint: Urinary NICOLE: 4 Review of Systems All systems reviewed & are unremarkable except as noted in HPI and below PFSH Medical History Anxiety with depression Asthma Carpal tunnel syndrome of right wrist Chronic GERD Chronic pain disorder Dandy-Walker syndrome Diabetes H/O migraine Hiatal hernia Hydrocephalus s/p CLINICAL MEDICAL ASSISTANT shunting, revision at age 1 Hyperreflexia Increased body mass index (BMI) Learning disability Leg cramping Migraine Other specified polyneuropathies PCOS (polycystic ovarian syndrome) Peripheral sensory neuropathy (~11/08/19) PTSD (post-traumatic stress disorder) Routine gynecological examination Small bowel obstruction Somatoform disorder Type 2 diabetes mellitus without complications Unspecified disorder of eye movements Verruca warts (infectious) Surgical [place]05[place]09[place]10[place] [facility] [place] of brain surgery Hydrocephalus as an infant History of placement of ear tubes S/P CLINICAL MEDICAL ASSISTANT shunt (~05/09/08) Last revision 2008 Family History Mother No problems noted. Father No problems noted. Maternal Grandfather No problems noted. Paternal Grandfather No problems noted. Maternal Grandmother No problems noted. Paternal Grandmother No problems noted. Social History Smoking/Tobacco Use Status: Never Second Hand Exposure: Yes Smoking risk assessment performed?: Yes Alcohol Intake: never Drug use: Never Substance use type: does not use Counseling given: No Counseling provided: none Household members: spouse Pets and animals: Yes Pets and animals: cat(s) How often do you talk on the phone with friends or family?: three or more times per week How often do you get together with friends or relatives?: three or more times per week Do you belong to any clubs or organized social groups?: no Panel score (0-1 are the most socially isolated patients): 1 What type of physical activity do you participate in: none Do you feel safe at home: Yes Do you feel safe in your relationship?: Yes Exam Const General: cooperative and comfortable Eyes Pupils: PERRL GI Other: Mild suprapubic tenderness no CVA tenderness Skin General skin exam: no rashes or lesions noted Neuro General: patient alert and patient oriented x3 Course Vital Signs Vital signs: Vital Signs Pulse 94 H 03/22/21 15:53 Respiratory Rate 18 03/22/21 15:53 Blood Pressure 132/85 03/22/21 15:53 Pulse Oximetry 100 03/22/21 15:53 Pulse 94 H 03/22/21 15:53 Respiratory Rate 18 03/22/21 15:53 Respiratory Effort Non-Labored 03/22/21 15:55 Blood Pressure 132/85 03/22/21 15:53 Blood Pressure Position Sitting 03/22/21 15:53 Pulse Oximetry 100 03/22/21 15:53 Oxygen Delivery Method Room Air 03/22/21 15:53 Oxygen Flow Rate 0 03/22/21 15:53 Pain Level 7 03/22/21 15:55 Lab/Test Results Lab/Test Results: Laboratory Tests Range/Units 03/22/21 16:00 Urine Color (Yellow) Yellow Urine Clarity (Clear) Cloudy Urine pH (5-8) 5.5 Ur Specific [place] (1.005-1.025) > 1.030 H Urine Protein (Negative) mg/dL 30 H Urine Ketones (Negative) mg/dL Negative Urine Blood (Negative) Large H Urine Nitrite (Negative) Negative Urine Bilirubin (Negative) Negative Urine Urobilinogen (Up TO 0.2) EU/dL 0.2 Ur Leukocyte Esterase (Negative) Small Urine RBC (0-2) HPF >50 H Urine WBC (0-5) HPF 20-50 H Ur Epithelial Cells (Negative) HPF Many Urine Crystals (Negative) HPF Negative Urine Bacteria (Negative) HPF Few Urine Mucus (Negative) Negative Ur Culture Indicated? No/Sq. Contamination Urine Glucose (Negative) mg/dL Negative
[2021-03-22 17:23] LABS: Bacteria Negative HPF (Negative); C & S Indicated? No; Crystals Negative HPF (Negative); Epithelial Cells Few HPF (Negative); Mucus Negative (Negative); WBC Negative HPF (0-5)
[2021-03-22 18:07] VITALS: BP 132/85; PULSE 94; RESP 18; O2SAT 100
[2021-03-22] MEDS: Fosfomycin Tromethamine 3 GM PACKET PO (18:07)
== END 2021-03-22 18:08 | disposition home or self-care (01) ==
PROVIDERS: Emergency Provider Physician Assistant; PCP Nurse Practitioner Family
DX: R30.0 Dysuria (principal); R35.0 Frequency of micturition
CPT/HCPCS: 99283; 81003; 81015; J3490

== ENCOUNTER 2021-03-30 12:57 | Outpatient (REF) | payer MEDICARE, SELFPAY ==
[2021-03-30 18:20] LABS: Bilirubin Negative (Negative); Blood Negative (Negative); Clarity Clear (Clear); Glucose Negative (Negative); Ketones Negative (Negative); Leukocyte Esterase Negative (Negative); Nitrite Negative (Negative); Urobilinogen 0.2 EU/dL (Up TO 0.2)
== END 2021-03-30 12:58 | disposition home or self-care (01) ==
LOC: LBN 12:57
PROVIDERS: PCP Nurse Practitioner Family; Visit Provider Physician Assistant
DX: N39.0 Urinary tract infection, site not specified (principal)
CPT/HCPCS: 81003

== ENCOUNTER → 2021-06-08 00:40 | Outpatient (CLI) | payer MEDICARE, SELFPAY ==
--- NOTE | 2021-06-08 06:45 | DI.CT_ITS ---
Exam(s) CT ABDOMEN PELVIS W EXAM: CT ABDOMEN PELVIS W CLINICAL HISTORY: Large, Firm Abdomen,r19.8. TECHNIQUE: Imaging Protocol: Axial computed tomography images with coronal and sagittal reformatted images were created and reviewed CONTRAST MATERIAL: Intravenous: Omnipaque 350 Contrast volume:100 ml Oral: yes COMPARISON: CT ABD PELVIS WITH CONTRAST from 12/23/2012 CT ABD PELVIS WITH CONTRAST from 11/01/[address] CHEST/ABD/PEL W from 07/18/2018 FINDINGS: ABDOMEN: Lung Bases: Normal where visualized. Liver: Mildly enlarged. Mild to moderate fatty infiltration. Stable tiny hypodensities, too small t o characterize.. No measurable mass. Gallbladder and biliary tract: No radiodense calculus or dilation. Pancreas: . somewhat atrophic. No evidence of inflammation. No mass. Spleen: Normal. Kidneys: Normal size, contour and axis. No radiodense stones or obstructive uropathy. No masses seen. Adrenal glands: No masses seen. Abdominal Aorta: Abdominal portion non-dilated. Soft tissues: WEAVER W[employer] LOOM shunt tubing. PELVIS: Bladder: No gross wall thickening. No calculi.No focal mass. Bowel: No obstruction or bowel wall thickening. Appendix normal. Peritoneal cavity: Interval worsening abnormal increased density in the central mesentery. There is no evidence of narrowing or obstruction of vessels which course through the abnormality. Increased a denopathy in the mesentery and periaortic chain. Largest left para-aortic region 2.5 cm Bones: Within normal limits for age. Reproductive organs: Within normal limits. Impression: Interval worsening apparent mesenteric mass over time. No evidence of bowel obstruction or vascular occlusion. Findings could represent mesenteric panniculitis, lymphoma or carcinoid tumor. RADIATION DOSE DELIVERED: 1,251.46mGy.cm Total DLP DATA REPOSITORY: All CT scans at this facility are submitted to the National Radiology Data Registry (NRDR) Dose Index Registry (DIR) with the [employer] (ACR). RADIATION OPTIMIZATION: All CT scans at this facility use at least one of these dose optimization te chniques: automated exposure control; mA and/or kV adjustment per patient size (includes targeted exa ms where dose is matched to clinical indication); or iterative reconstruction.
[2021-06-08] MEDS: Omnipaque 350 MG/ML 50 ML BTL PO (08:05)
[2021-06-08] MEDS: Breeza Beverage 473 ML BTL PO (08:06)
[2021-06-08 09:12] LABS: CREATININE 0.8 mg/dL (0.55-1.02)
[2021-06-08] MEDS: Omnipaque 350 MG/ML 100 ML BTL IJ (09:26)
== END ==
PROVIDERS: PCP Nurse Practitioner Family; Visit Provider Nurse Practitioner Family
DX: R19.8 Other specified symptoms and signs involving the digestive system and abdomen (principal); Z01.812 Encounter for preprocedural laboratory examination; K76.0 Fatty (change of) liver, not elsewhere classified; R19.09 Other intra-abdominal and pelvic swelling, mass and lump; R59.0 Localized enlarged lymph nodes
CPT/HCPCS: 74177; 82565; J3490; Q9967

== ENCOUNTER 2021-07-04 14:48 | Emergency (ER) | payer MEDICARE, SELFPAY ==
[2021-07-04 14:59] VITALS: BP 144/85; PULSE 80; RESP 14; TEMP 36.5; O2SAT 99
[2021-07-04 16:26] LABS: Bilirubin Negative (Negative); Blood Large (Negative); Clarity Sl Cloudy (Clear); Glucose Negative (Negative); Ketones Negative (Negative); Leukocyte Esterase Negative (Negative); Nitrite Negative (Negative); Specific Gravity >= 1.030 (1.005-1.025); Urobilinogen 0.2 EU/dL (Up TO 0.2); pH 5.5 (5-8)
[2021-07-04 16:35] LABS: Bacteria Few HPF (Negative); C & S Indicated? No/Sq. Contamination; Crystals Negative HPF (Negative); Epithelial Cells Many HPF (Negative); Mucus Negative (Negative); RBC 20-50 HPF (0-2)
--- NOTE | 2021-07-04 18:31 | W.ED.FU ---
Follow Up Plan: Patient had initial triage completed, was waiting in the waiting room, urinalysis and urine test was ordered before medical screening exam by MD. Due to patient surge aty this time patient was waiting in the waiting room for some time, left before medical screening exam. I called her phone several times to relay the results of her urinalysis which showed RBCs. No answer for 2 of the phone calls, one of the phone calls apparently was picked up with no one responded and then the phone hung up. There was no voicemail option.
--- NOTE | 2021-07-05 08:01 | NUR.NOTE ---
advised patient that she would need to come back and provide a new urine sample that can be cultured.
== END 2021-07-04 17:00 ==
LOC: ER 14:56
PROVIDERS: Emergency Provider Emergency Medicine; PCP Nurse Practitioner Family
DX: R31.9 Hematuria, unspecified (principal); Z53.29 Procedure and treatment not carried out because of patient's decision for other reasons
CPT/HCPCS: 81025; 99282; 81003; 81015

== ENCOUNTER 2021-07-05 14:47 | Emergency (ER) | payer MEDICARE, SELFPAY ==
[2021-07-05 14:57] VITALS: PULSE 90; RESP 16; TEMP 36.6
[2021-07-05 15:50] LABS: Bilirubin Negative (Negative); Blood Moderate (Negative); Clarity Sl Cloudy (Clear); Glucose Negative (Negative); Ketones Negative (Negative); Leukocyte Esterase Negative (Negative); Nitrite Negative (Negative); Urobilinogen 0.2 EU/dL (Up TO 0.2)
[2021-07-05 15:57] LABS: Bacteria Rare HPF (Negative); C & S Indicated? No; Crystals Negative HPF (Negative); Epithelial Cells Few HPF (Negative); Mucus Negative (Negative); WBC Negative HPF (0-5)
--- NOTE | 2021-07-05 16:13 | W.ED.GENAD ---
Discharge Plan Disposition Patient Disposition: HOME Condition: Stable Discharge Details Clinical Impression: Hematuria Primary Care Provider: Wallace Negron ED Provider: Portia Vela Home Meds and New Rx's Prescriptions: Continued polyethylene glycol 3350 [Miralax] 17 gram/dose powder 17 g PO DAILY PRN0RF fluoxetine 20 mg capsule 40 mg PO DAILY Qty: 60 12RF albuterol sulfate 90 mcg/actuation HFA aerosol inhaler 1 puff inhalation ONCE PRN (Reason: bronchospasm) Qty: 8.5 5RF Rx Instructions: Every 4 hours PRN metformin 500 mg tablet 500 mg PO BID Qty: 180 3RF lorazepam 0.5 mg tablet 0.5 mg PO TID PRN (Reason: anxiety) Qty: 60 3RF acetaminophen-codeine 300-30 mg tablet 1 tab PO BID PRN (Reason: pain) Qty: 60 0RF promethazine 25 mg tablet 25 mg PO TID PRN (Reason: nausea and vomiting) Qty: 30 0RF baclofen 10 mg tablet 10 mg PO TID Qty: 90 1RF esomeprazole magnesium 40 mg capsule,delayed release(DR/EC) 40 mg PO BID 0RF Label Comments: TK 1 C PO BID Discharge Instructions Instructions: Hematuria (ED) Additional Instructions: a culture is pending, we will call if positive Referrals: Thomas Moon MD [ [facility] STAFF PHYSICIAN] - (call Tuesday for follow up) Discharge Data Discharge Date/Time-TO BE ENTERED AT DEPARTURE: 07/05/21 17:05 Medical Decision Making <Portia Vela NP - Last Filed: 07/05/21 21:51> patient returns after leaving [facility] yesterday for c/o urinary frequency urgency and hematuria. urine and labs ordered, no infection noted. ct scan ordered and patient decides to leave prior to ct scan stating family emergency. in setting of no infection, and normal exam safe for outpatient work up for hematuria. discharged to home with outpatient referral. Medical Records Medical records reviewed: Yes I reviewed the patient's medical records. Lab Data Lab results reviewed: Yes I reviewed the patient's lab results. Labs: Laboratory Results - last 24 hr 07/05/21 07/05/21 07/05/21 15:45 16:43 16:43 WBC 7.75 RBC 4.68 Hgb 13.7 Hct 41.1 MCV 87.8 MCH 29.3 MCHC 33.3 RDW 12.4 Plt Count 345 MPV 10.2 Immature Gran % 0.4 Neutrophils % 63.7 Lymphocytes % 24.9 Monocytes % 7.7 Eosinophils % 2.8 Basophils % 0.5 Nucleated RBC % 0 Absolute Neutrophils 4.93 Absolute Lymphocytes 1.93 Absolute Monocytes 0.60 Absolute Eosinophils 0.22 Absolute Basophils 0.04 Sodium 138 Potassium 3.5 Chloride 102 Carbon Dioxide 24.5 Anion Gap 11.5 H BUN 12 Creatinine 0.8 Estimated GFR/1.73 m2 >= 60.00 Glucose 95 Calcium 9.2 Urine Color Yellow Urine Clarity Sl Cloudy Urine pH 6.0 Ur Specific [place] 1.010 Urine Protein Negative Urine Ketones Negative Urine Blood Moderate H Urine Nitrite Negative Urine Bilirubin Negative Urine Urobilinogen 0.2 Ur Leukocyte Esterase Negative Urine RBC 10-20 H Urine WBC Negative Ur Epithelial Cells Few Urine Crystals Negative Urine Bacteria Rare Urine Mucus Negative Ur Culture Indicated? No Urine Glucose Negative <Damaris Bishop DO - Last Filed: 07/06/21 08:49> patient returns after leaving [facility] yesterday for c/o urinary frequency urgency and hematuria. urine and labs ordered, no infection noted. ct scan ordered and patient decides to leave prior to ct scan stating family emergency. in setting of no infection, and normal exam safe for outpatient work up for hematuria. discharged to home with outpatient referral. Dr. Bishop --patient not seen or evaluated by me but I was available for consultation in the emergency department. HPI <Portia Vela NP - Last Filed: 07/05/21 21:51> General Mode of arrival: ambulatory. Date/Time Provider Initiated Documentation: 07/05/21 15:14. Limitations to Documentation: no limitations. Information obtained by: patient. HPI Narrative: right flank pain started yesterday with right sided flank pain, constant, urinary frequency and urgency, consistent with history of UTI, no longer has menses. urine preg yesterday negative was seen in ED yesterday and left prior to results d/t wait times. returns today as symptoms not improved. reports chills, no nausea or vomiting. Related Data Home Medications Medication Instructions Recorded Confirmed esomeprazole magnesium 40 mg 40 mg PO BID 09/23/19 07/04/21 capsule,delayed release polyethylene glycol 3350 17 17 g PO DAILY PRN 07/16/20 07/04/21 gram/dose oral powder (Miralax) fluoxetine 20 mg capsule 40 mg PO DAILY #60 cap 08/11/20 07/04/21 albuterol sulfate 90 mcg/actuation 1 puff INHALATION ONCE PRN #8.5 g 10/15/20 07/04/21 aerosol inhaler metformin 500 mg tablet 500 mg PO BID #180 tab 12/29/20 07/04/21 lorazepam 0.5 mg tablet 0.5 mg PO TID PRN #60 tab 05/28/21 07/04/21 acetaminophen 300 mg-codeine 30 mg 1 tab PO BID PRN #60 tab 06/08/21 07/04/21 tablet promethazine 25 mg tablet 25 mg PO TID PRN #30 tab 06/10/21 07/04/21 baclofen 10 mg tablet 10 mg PO TID #90 tab 06/29/21 07/04/21 Previous Rx's Medication Instructions Recorded fluoxetine 20 mg capsule 40 mg PO DAILY #60 cap 08/11/20 albuterol sulfate 90 mcg/actuation 1 puff INHALATION ONCE PRN #8.5 g 10/15/20 aerosol inhaler metformin 500 mg tablet 500 mg PO BID #180 tab 12/29/20 lorazepam 0.5 mg tablet 0.5 mg PO TID PRN #60 tab 05/28/21 acetaminophen 300 mg-codeine 30 mg 1 tab PO BID PRN #60 tab 06/08/21 tablet promethazine 25 mg tablet 25 mg PO TID PRN #30 tab 06/10/21 baclofen 10 mg tablet 10 mg PO TID #90 tab 06/29/21 Allergies Allergy/AdvReac Type Severity Reaction Status Date / Time cephalexin monohydrate Allergy Severe Anaphylaxsi Verified 07/04/21 15:02 [From Keflex] s nitrofurantoin Allergy Severe Anaphylaxsi Verified 07/04/21 15:02 [From Macrobid] s Sulfa (Sulfonamide Allergy Severe Anaphylaxsi Verified 07/04/21 15:02 Antibiotics) s topiramate [From Topamax] Allergy Severe Anaphylaxsi Verified 07/04/21 15:02 s ibuprofen Allergy Mild Hives Verified 07/04/21 15:02 cefazolin Allergy Unknown Other (See Verified 07/04/21 15:02 Comment) celecoxib [From Celebrex] Allergy Unknown Hives Verified 07/04/21 15:02 duloxetine [From Cymbalta] Allergy Unknown Swelling/Ed Verified 07/04/21 15:02 bert naproxen Allergy Unknown Hives Verified 07/04/21 15:02 pregabalin [From Lyrica] Allergy Unknown Swelling/Ed Verified 07/04/21 15:02 bert wheat Allergy Unknown Verified 07/04/21 15:02 gabapentin AdvReac Intermediate Heart Verified 07/04/21 15:02 Races, per pt General Stated Complaint: Urinary NICOLE: 4 Review of Systems <Portia Vela NP - Last Filed: 07/05/21 21:51> All systems reviewed & are unremarkable except as noted in HPI and below Constitutional Constitutional: Denies fever(s) Gastrointestinal Gastrointestinal: Denies abdominal pain, Denies nausea and Denies vomiting Genitourinary Genitourinary: Denies abnormal vaginal bleeding, Reports hematuria, Reports urinary urgency and Denies vaginal discharge PFSH <Portia Vela NP - Last Filed: 07/05/21 21:51> All Active Problems (Updated 07/05/21 @ 16:57 by Portia Vela NP) Hematuria (Acute) Dental infection (Acute) URI (upper respiratory infection) (Acute) Dysuria (Acute) Firmness of abdomen (Acute) Leg cramping (Acute) Routine gynecological examination (Acute) Increased body mass index (BMI) (Acute) Dandy-Walker syndrome (Chronic) Hyperreflexia (Chronic) Peripheral sensory neuropathy (Chronic ~11/08/19) PTSD (post-traumatic stress disorder) (Chronic) Other specified polyneuropathies (Acute) Chronic pain disorder (Chronic) Carpal tunnel syndrome of right wrist (Acute) Hiatal hernia (Chronic) Type 2 diabetes mellitus without complications (Acute) Chronic GERD (Acute) Learning disability (Acute) Unspecified disorder of eye movements (Acute) Somatoform disorder (Acute) Anxiety with depression (Acute) Incisional hernia of anterior abdominal wall without obstruction or gangrene (Acute) Constipation (Acute) Disposition (Acute) Active Problem List Dental infection (Acute) URI (upper respiratory infection) (Acute) Dysuria (Acute) Firmness of abdomen (Acute) Leg cramping (Acute) Routine gynecological examination (Acute) Increased body mass index (BMI) (Acute) Dandy-Walker syndrome (Chronic) Hyperreflexia (Chronic) Peripheral sensory neuropathy (Chronic ~11/08/19) PTSD (post-traumatic stress disorder) (Chronic) Other specified polyneuropathies (Acute) Chronic pain disorder (Chronic) Carpal tunnel syndrome of right wrist (Acute) Hiatal hernia (Chronic) Type 2 diabetes mellitus without complications (Acute) Chronic GERD (Acute) Learning disability (Acute) Unspecified disorder of eye movements (Acute) Somatoform disorder (Acute) Anxiety with depression (Acute) Incisional hernia of anterior abdominal wall without obstruction or gangrene (Acute) Constipation (Acute) Disposition (Acute) Medical History Asthma Diabetes H/O migraine Hydrocephalus s/p BROKE WORKER shunting, revision at age 1 Migraine PCOS (polycystic ovarian syndrome) Small bowel obstruction Verruca warts (infectious) Surgical History H/O esophagogastroduodenoscopy (~05/09/10) [facility] [place] History of brain surgery Hydrocephalus as an History of placement of ear tubes S/P BROKE WORKER shunt (~05/09/08) Last revision 2008 Family History Mother No problems noted. Father No problems noted. Maternal Grandfather No problems noted. Paternal Grandfather No problems noted. Maternal Grandmother No problems noted. Paternal Grandmother No problems noted. Social History Smoking/Tobacco Use Status: Never Second Hand Exposure: Yes Smoking risk assessment performed?: Yes Alcohol Intake: never Drug use: Never Substance use type: does not use Counseling given: No Counseling provided: none Household members: spouse Pets and animals: Yes Pets and animals: cat(s) How often do you talk on the phone with friends or family?: three or more times per week How often do you get together with friends or relatives?: three or more times per week Do you belong to any clubs or organized social groups?: no Panel score (0-1 are the most socially isolated patients): 1 What type of physical activity do you participate in: none Do you feel safe at home: Yes Do you feel safe in your relationship?: Yes Course <Portia Vela NP - Last Filed: 07/05/21 21:51> Vital Signs Vital signs: Vital Signs Temperature 36.6 C 07/05/21 14:57 Pulse 90 07/05/21 14:57 Respiratory Rate 16 07/05/21 14:57 Temperature 36.6 C 07/05/21 14:57 Temperature Source Temporal Artery Scan 07/05/21 14:57 Pulse 90 07/05/21 14:57 Respiratory Rate 16 07/05/21 14:57 Respiratory Effort 07/05/21 15:10 Blood Pressure Position Sitting 07/05/21 14:57 Oxygen Delivery Method Room Air 07/05/21 14:57 Oxygen Flow Rate 0 07/05/21 14:57 Lab/Test Results Lab/Test Results: Laboratory Tests Range/Units 07/05/21 15:45 Urine Color (Yellow) Yellow Urine Clarity (Clear) Sl Cloudy Urine pH (5-8) 6.0 Ur Specific [place] (1.005-1.025) 1.010 Urine Protein (Negative) mg/dL Negative Urine Ketones (Negative) mg/dL Negative Urine Blood (Negative) Moderate H Urine Nitrite (Negative) Negative Urine Bilirubin (Negative) Negative Urine Urobilinogen (Up TO 0.2) EU/dL 0.2 Ur Leukocyte Esterase (Negative) Negative Urine RBC (0-2) HPF 10-20 H Urine WBC (0-5) HPF Negative Ur Epithelial Cells (Negative) HPF Few Urine Crystals (Negative) HPF Negative Urine Bacteria (Negative) HPF Rare Urine Mucus (Negative) Negative Ur Culture Indicated? No Urine Glucose (Negative) mg/dL Negative
[2021-07-05 16:46] LABS: Abs Immature Grans 0.03 10^3/uL (0.0-0.06); Absolute Basophil Count 0.04 10^3/uL (0.0-0.2); Absolute Eosinophil Count 0.22 10^3/uL (0.0-0.7); Absolute Lymphocyte Count 1.93 10^3/uL (1.2-3.4); Absolute Neutrophil Count 4.93 10^3/uL (1.2-6.7); Basophils % 0.5; Eosinophils % 2.8; HCT 41.1 % (36.0-46.0); HGB 13.7 g/dL (11.2-15.7); Immature Grans % 0.4; Lymphocytes % 24.9; MCH 29.3 pg (27.0-33.0); MCHC 33.3 % (32.0-36.0); MCV 87.8 fL (80-95); MPV 10.2 fL (8.0-11.0); Monocytes % 7.7; Neutrophils % 63.7; Nucleated RBC 0 %; Platelet Count 345 10^3/uL (130-400); RBC 4.68 10^6/uL (3.93-5.22); RDW 12.4 % (11.7-14.6); RDW-SD 40.4 fL; WBC 7.75 10^3/uL (4.4-10.8)
[2021-07-05 16:58] LABS: Anion Gap 11.5 mmol/L (3-11); BUN 12 mg/dL (7-18); CO2 24.5 mmol/L (21.0-32.0); CREATININE 0.8 mg/dL (0.55-1.02); Calcium 9.2 mg/dL (8.5-10.1); Chloride 102 mmol/L (98-107); Glucose 95 mg/dL (74-106); Potassium 3.5 mmol/L (3.5-5.1); Sodium 138 mmol/L (136-145)
== END 2021-07-05 17:05 | disposition home or self-care (01) ==
PROVIDERS: Emergency Provider Nurse Practitioner Acute Care; PCP Nurse Practitioner Family
DX: R31.9 Hematuria, unspecified (principal)
CPT/HCPCS: 36416; 80048; 82962; 99282; 81003; 81015; 85025; 87086

== ENCOUNTER 2021-09-25 15:31 | Outpatient (REF) | payer MEDICARE, SELFPAY ==
[2021-09-27 14:38] LABS: COVID-19 RT-PCR UVMMC Result Negative (Negative)
== END 2021-09-25 15:32 | disposition home or self-care (01) ==
LOC: LBN 15:31
PROVIDERS: PCP Nurse Practitioner Family; Visit Provider Physician Assistant
DX: Z20.822 Contact with and (suspected) exposure to COVID-19 (principal)
CPT/HCPCS: U0003

== ENCOUNTER 2021-10-24 13:45 | Emergency (ER) | payer MEDICARE, SELFPAY ==
[2021-10-24 13:59] VITALS: BP 126/76; PULSE 76; RESP 14; TEMP 36.4; O2SAT 100
--- NOTE | 2021-10-24 14:23 | ED.GENADUL_ITS ---
Discharge Plan Disposition Patient Disposition: HOME Condition: Stable Discharge Details Clinical Impression: Urinary frequency Primary Care Provider: Wallace Negron ED Provider: Malia Ward Home Meds and New Rx's Prescriptions: Continued polyethylene glycol 3350 [Miralax] 17 gram/dose powder 17 g PO DAILY PRN albuterol sulfate 90 mcg/actuation HFA aerosol inhaler 1 puff inhalation ONCE PRN (Reason: bronchospasm) Qty: 8.5 5RF Rx Instructions: Every 4 hours PRN metformin 500 mg tablet 500 mg PO BID Qty: 180 3RF lorazepam 0.5 mg tablet 0.5 mg PO TID PRN (Reason: anxiety) Qty: 60 3RF fluoxetine 20 mg capsule 40 mg PO DAILY Qty: 60 12RF promethazine 25 mg tablet 25 mg PO TID PRN (Reason: nausea and vomiting) Qty: 30 0RF acetaminophen-codeine 300-30 mg tablet 1 tab PO BID PRN (Reason: pain) Qty: 60 0RF baclofen 10 mg tablet 10 mg PO TID Qty: 90 1RF esomeprazole magnesium 40 mg capsule,delayed release(DR/EC) 40 mg PO BID Label Comments: TK 1 C PO BID Discharge Instructions Instructions: Dysuria (ED) Additional Instructions: At this time there is no evidence for urinary tract infection. Please follow-up with your primary care provider if this continues. Urinary frequency can be related to diabetes. Follow up with primary care provider in 3-5 days. Return to ED sooner if any worsening fever, vomiting or concerns. Increase oral fluids. Please take Tylenol or Ibuprofen with food every 4-6 hours as needed for pain and swelling. Referrals: Wallace Negron, [employer] [Primary Care Provider] - 1 week Discharge Data Discharge Date/Time-TO BE ENTERED AT DEPARTURE: 10/24/21 16:02 Medical Decision Making 40-year-old female presents to the ER with dysuria and urinary frequency for the last 2 days. She denies any nausea vomiting diarrhea denies any fever chills denies any flank pain. No other associated symptoms. Urinalysis ordered. Urine preg POC ordered. Urinalysis shows specific gravity greater than 1030 trace blood negative nitrite negative leukocyte negative urine glucose, 3-5 WBCs culture is pending at this time. No evidence of urinary tract infection. Unsure of reason for the urinary frequency. This time antibiotics are not indicated. Discussed strict return instructions and instructed to follow-up with PCP if any worsening. This text was generated using [employer] dictation system, please disregard any oddities of phrase or misspellings. Lab Data Lab results reviewed: Yes I reviewed the patient's lab results. HPI General Mode of arrival: ambulatory . Date/Time Provider Initiated Documentation: 10/24/21 13:52 . Limitations to Documentation: no limitations . Information obtained by: patient, RN notes reviewed and old records reviewed . HPI Narrative: 40-year-old female presents to the ER with dysuria and urinary frequency for the last 2 days. She denies any nausea vomiting diarrhea denies any fever chills denies any flank pain. No other associated symptoms. She does have some suprapubic tenderness on exam. She does have a past medical history of chronic pain disorder, type 2 diabetes, GERD, PTSD, Dandy-Walker syndrome hydrocephalus, PCOS, small bowel obstruction. Status post EMERGENCY MEDICAL TECH shunt 2008 Related Data Home Medications Medication Instructions Recorded Confirmed esomeprazole magnesium 40 mg 40 mg PO BID 09/23/19 10/24/21 capsule,delayed release polyethylene glycol 3350 17 17 g PO DAILY PRN 07/16/20 10/24/21 gram/dose oral powder (Miralax) albuterol sulfate 90 mcg/actuation 1 puff inhalation ONCE PRN 10/15/20 10/24/21 aerosol inhaler bronchospasm #8.5 grams metformin 500 mg tablet 500 mg PO BID #180 tabs 12/29/20 10/24/21 lorazepam 0.5 mg tablet 0.5 mg PO TID PRN anxiety #60 tabs 07/27/21 10/24/21 fluoxetine 20 mg capsule 40 mg PO DAILY #60 caps 08/25/21 10/24/21 promethazine 25 mg tablet 25 mg PO TID PRN nausea and 09/09/21 10/24/21 vomiting #30 tabs acetaminophen 300 mg-codeine 30 mg 1 tab PO BID PRN pain #60 tabs 09/30/21 10/24/21 tablet baclofen 10 mg tablet 10 mg PO TID #90 tabs 10/19/21 10/24/21 Previous Rx's Medication Instructions Recorded albuterol sulfate 90 mcg/actuation 1 puff inhalation ONCE PRN 10/15/20 aerosol inhaler bronchospasm #8.5 grams metformin 500 mg tablet 500 mg PO BID #180 tabs 12/29/20 lorazepam 0.5 mg tablet 0.5 mg PO TID PRN anxiety #60 tabs 07/27/21 fluoxetine 20 mg capsule 40 mg PO DAILY #60 caps 08/25/21 promethazine 25 mg tablet 25 mg PO TID PRN nausea and 09/09/21 vomiting #30 tabs acetaminophen 300 mg-codeine 30 mg 1 tab PO BID PRN pain #60 tabs 09/30/21 tablet baclofen 10 mg tablet 10 mg PO TID #90 tabs 10/19/21 Allergies Allergy/AdvReac Type Severity Reaction Status Date / Time cephalexin monohydrate Allergy Severe Anaphylaxsi Verified 10/24/21 14:04 [From Keflex] s nitrofurantoin Allergy Severe Anaphylaxsi Verified 10/24/21 14:04 [From Macrobid] s Sulfa (Sulfonamide Allergy Severe Anaphylaxsi Verified 10/24/21 14:04 Antibiotics) s topiramate [From Topamax] Allergy Severe Anaphylaxsi Verified 10/24/21 14:04 s ibuprofen Allergy Mild Hives Verified 10/24/21 14:04 cefazolin Allergy Unknown Other (See Verified 10/24/21 14:04 Comment) celecoxib [From Celebrex] Allergy Unknown Hives Verified 10/24/21 14:04 duloxetine [From Cymbalta] Allergy Unknown Swelling/Ed Verified 10/24/21 14:04 bert naproxen Allergy Unknown Hives Verified 10/24/21 14:04 pregabalin [From Lyrica] Allergy Unknown Swelling/Ed Verified 10/24/21 14:04 bert wheat Allergy Unknown Verified 10/24/21 14:04 gabapentin AdvReac Intermediate Heart Verified 10/24/21 14:04 Races, per pt General Stated Complaint: Urinary NICOLE: 4 Review of Systems All systems reviewed & are unremarkable except as noted in HPI and below Genitourinary Genitourinary: Reports as per HPI, Reports dysuria, Reports pelvic pain, Denies flank pain and Reports urinary urgency PFSH All Active Problems (Updated 10/24/21 @ 15:51 by Malia Ward NP) Urinary frequency (Acute) Follicular lymphoma (Acute) Dental infection (Acute) URI (upper respiratory infection) (Acute) Dysuria (Acute) Firmness of abdomen (Acute) Leg cramping (Acute) Routine gynecological examination (Acute) Increased body mass index (BMI) (Acute) Dandy-Walker syndrome (Chronic) Hyperreflexia (Chronic) Peripheral sensory neuropathy (Chronic ~11/08/19) PTSD (post-traumatic stress disorder) (Chronic) Other specified polyneuropathies (Acute) Chronic pain disorder (Chronic) Carpal tunnel syndrome of right wrist (Acute) Hiatal hernia (Chronic) Type 2 diabetes mellitus without complications (Acute) Chronic GERD (Acute) Learning disability (Acute) Unspecified disorder of eye movements (Acute) Somatoform disorder (Acute) Anxiety with depression (Acute) Incisional hernia of anterior abdominal wall without obstruction or gangrene (Acute) Constipation (Acute) Disposition (Acute) Medical History Asthma Diabetes H/O migraine Hydrocephalus s/p EMERGENCY MEDICAL TECH shunting, revision at age 1 Migraine PCOS (polycystic ovarian syndrome) Small bowel obstruction Verruca warts (infectious) Surgical History H/O esophagogastroduodenoscopy (~05/09/10) [facility] [place] History of brain surgery Hydrocephalus as an History of placement of ear tubes S/P EMERGENCY MEDICAL TECH shunt (~05/09/08) Last revision 2008 Family History Mother No problems noted. Father No problems noted. Maternal Grandfather No problems noted. Paternal Grandfather No problems noted. Maternal Grandmother No problems noted. Paternal Grandmother No problems noted. Social History Smoking/Tobacco Use Status: Never Second Hand Exposure: Yes Smoking risk assessment performed?: Yes Alcohol Intake: never Drug use: Never Substance use type: does not use Counseling given: No Counseling provided: none Household members: spouse Pets and animals: Yes Pets and animals: cat(s) How often do you talk on the phone with friends or family?: three or more times per week How often do you get together with friends or relatives?: three or more times per week Do you belong to any clubs or organized social groups?: no Panel score (0-1 are the most socially isolated patients): 1 What type of physical activity do you participate in: none Do you feel safe at home: Yes Do you feel safe in your relationship?: Yes Exam Narrative Exam Narrative: Constitutional: Alert and oriented x3. Appears stated age. Obese body habitus. Head: Normocephalic, no trauma. Eyes: Pupils PERRL, Red reflex noted, EOM's intact. Eyelids symmetrical without lesions, discharge, or swelling. Chest: RRR, Normal S1, S2, distal pulses intact. Resp: Lungs clear to auscultation bilaterally, no wheezes, rales, or rhonchi. Abdomen: Soft, non-distended, Normoactive bowel sounds all 4 quads. Tenderness with palpation suprapubic area reports mild discomfort. No masses. Musculoskeletal: Normal gait, 5/5 strength to all four extremities. Skin: No suspicious rashes or lesions. Capillary refill less than 2 sec. Hematologic/Lymphatic: No ecchymosis, no lymphadenopathy. Course Vital Signs Vital signs: Vital Signs Temperature 36.4 C L 10/24/21 13:59 Pulse 76 10/24/21 13:59 Respiratory Rate 14 10/24/21 13:59 Blood Pressure 126/76 10/24/21 13:59 Pulse Oximetry 100 10/24/21 13:59 Temperature 36.4 C L 10/24/21 13:59 Temperature Source Skin 10/24/21 13:59 Pulse 76 10/24/21 13:59 Respiratory Rate 14 10/24/21 13:59 Respiratory Effort 10/24/21 14:05 Blood Pressure 126/76 10/24/21 13:59 Blood Pressure Position Sitting 10/24/21 13:59 Pulse Oximetry 100 10/24/21 13:59 Oxygen Delivery Method Room Air 10/24/21 13:59 Oxygen Flow Rate 0 10/24/21 13:59 Pain Level 4 10/24/21 14:06
[2021-10-24 14:50] LABS: Bilirubin Negative (Negative); Blood Trace-intact (Negative); Clarity Sl Cloudy (Clear); Glucose Negative (Negative); Ketones Negative (Negative); Leukocyte Esterase Negative (Negative); Nitrite Negative (Negative); Specific Gravity >= 1.030 (1.005-1.025); Urobilinogen 0.2 EU/dL (Up TO 0.2); pH 5.5 (5-8)
[2021-10-24 15:11] LABS: Bacteria Negative HPF (Negative); C & S Indicated? Yes; Casts Negative LPF (Negative); Crystals Negative HPF (Negative); Epithelial Cells Few HPF (Negative); Mucus Negative (Negative); Other Cells Negative (Negative); RBC 0-2 HPF (0-2)
== END 2021-10-24 16:02 | disposition home or self-care (01) ==
PROVIDERS: Emergency Provider Registered Nurse Emergency; PCP Nurse Practitioner Family
DX: R35.0 Frequency of micturition (principal)
CPT/HCPCS: 81025; 99282; 81003; 81015; 87086

== ENCOUNTER 2022-03-20 15:03 | Emergency (ER) | payer MEDICARE, SELFPAY ==
[2022-03-20 15:07] VITALS: BP 119/63; PULSE 124; RESP 18; TEMP 37.3; O2SAT 98
--- NOTE | 2022-03-20 15:15 | DI.RAD_ITS ---
Exam(s) XR PORTABLE CHEST AP EXAM: XR PORTABLE CHEST AP CLINICAL HISTORY: cough. TECHNIQUE: 2D digital imaging was performed. COMPARISON: CR,XR XR PORTABLE CHEST AP from 01/28/2021 FINDINGS: Single AP portable view. Heart size is upper normal. The mediastinum is not widened. There is subsegmental platelike atelectasis in the lateral left lung base. No other pulmonary findin gs nor pleural effusions. Tenting of the right hemidiaphragm is again noted IMPRESSION: There is subsegmental platelike atelectasis in the lateral left lung base. No other pulmonary findin gs. DATA REPOSITORY: RADIATION DOSE DELIVERED:
--- NOTE | 2022-03-20 15:22 | ED.GENADUL_ITS ---
Discharge Plan Disposition Patient Disposition: HOME Condition: Stable Discharge Details Clinical Impression: Cough, Influenza Primary Care Provider: Wallace Negron ED Provider: Jarvis Orantes Home Meds and New Rx's Prescriptions: New prednisone 20 mg tablet 60 mg PO DAILY 4 Days Qty: 12 0RF oseltamivir 75 mg capsule 75 mg PO Q12H 5 Days Qty: 10 0RF Continued nystatin 100,000 unit/mL suspension 500,000 unit buccal QID Qty: 480 0RF Rx Instructions: administer 1/2 of dose in each side of the mouth, hold in mouth as long as possible, then swallow polyethylene glycol 3350 [Miralax] 17 gram/dose powder 17 g PO DAILY PRN fluoxetine 20 mg capsule 40 mg PO DAILY Qty: 60 12RF metformin 500 mg tablet 500 mg PO BID Qty: 180 0RF baclofen 20 mg tablet 20 mg PO TID Qty: 90 2RF lorazepam 0.5 mg tablet 0.5 mg PO TID PRN (Reason: anxiety) Qty: 60 3RF promethazine 25 mg tablet 25 mg PO TID PRN (Reason: nausea and vomiting) Qty: 30 0RF albuterol sulfate 90 mcg/actuation HFA aerosol inhaler 1 puff inhalation ONCE PRN (Reason: bronchospasm) Qty: 8.5 5RF Rx Instructions: Every 4 hours PRN acetaminophen-codeine 300-30 mg tablet 1 tab PO BID PRN (Reason: pain) Qty: 60 0RF benzonatate 100 mg capsule 100 mg PO TID PRN (Reason: cough) Qty: 30 0RF esomeprazole magnesium 40 mg capsule,delayed release(DR/EC) 40 mg PO BID Label Comments: TK 1 C PO BID Discharge Instructions Instructions: Influenza (ED) Additional Instructions: you tested positive for influenza if not improving this week follow up with your primary care provider if you feel more ill or have worsening trouble breathing return to the emergency department Medical Decision Making 41 yo female with hx of asthma, gerd, dm, recent diagnosis of nonhodgkins lymphoma per patient but states her oncologist is just watching and has not initiated any treatment for it, comes in with 1 week of cough.She denies fevers, chills, chest pain or dyspnea. She has been taking nystatin for thrush. She arrives stable, appears well speaking in full sentences and intermittently has a cough. She has no jvd, no leg swelling or calf tenderness, bilateral apical wheezing otherwise clear lungs. Her symptoms of cough are concerning for uri vs pneumonia vs covid vs flu with likely mild asthma exacerbation, will treat with duoneb and solumedrol and obtain cbc, cmp along with fluvid. No dyspnea or chest pain so do not feel acs workup indicated and no evidence of dvt or hypoxia so doubt pe, is mildly tachycardic but has used inhalers just prior to arrival. pt states she feels better, lung souds clear no wheezing, xray unremarkable, labs other than positive flu test unremarkable. She is stable for d/c, will stat tamiflu, advised to f/u with pcp and return precautions given Differential Diagnosis Differential Diagnosis: copd, asthma, pneumonia Medical Records Medical records reviewed: Yes I reviewed the patient's medical records. Imaging Data Radiologic Study: Attestation: I personally reviewed and interpreted this imaging study as follows: Imaging: X-Ray Lab Data Lab results reviewed: Yes I reviewed the patient's lab results. HPI General Mode of arrival: ambulatory . Date/Time Provider Initiated Documentation: 03/20/22 15:03 . Limitations to Documentation: no limitations . Information obtained by: patient . History of Present Illness 41 year old F presents to the emergency department with the chief complaint of cough, described as moderate, Patient started experiencing this week(s) (1) and it has been constant. No relieving factors improve symptom(s), No exacerbating factors reported . Patient notes denies chest pain and fever/chills. Patient did receive the following treatments prior to arrival, none Related Data Home Medications Medication Instructions Recorded Confirmed esomeprazole magnesium 40 mg 40 mg PO BID 09/23/19 03/20/22 capsule,delayed release polyethylene glycol 3350 17 17 g PO DAILY PRN 07/16/20 03/20/22 gram/dose oral powder (Miralax) fluoxetine 20 mg capsule 40 mg PO DAILY #60 caps 08/25/21 03/20/22 metformin 500 mg tablet 500 mg PO BID #180 tabs 12/16/21 03/20/22 baclofen 20 mg tablet 20 mg PO TID #90 tabs 12/30/21 03/20/22 lorazepam 0.5 mg tablet 0.5 mg PO TID PRN anxiety #60 tabs 01/01/22 03/20/22 promethazine 25 mg tablet 25 mg PO TID PRN nausea and 01/06/22 03/20/22 vomiting #30 tabs albuterol sulfate 90 mcg/actuation 1 puff inhalation ONCE PRN 02/12/22 03/20/22 aerosol inhaler bronchospasm #8.5 grams acetaminophen 300 mg-codeine 30 mg 1 tab PO BID PRN pain #60 tabs 03/01/22 03/20/22 tablet nystatin 100,000 unit/mL oral 500,000 unit (5 mL) buccal QID 03/18/22 03/20/22 suspension #480 mL benzonatate 100 mg capsule 100 mg PO TID PRN cough #30 caps 03/19/22 03/20/22 oseltamivir 75 mg capsule 75 mg PO Q12H 5 days #10 caps 03/20/22 prednisone 20 mg tablet 60 mg PO DAILY 4 days #12 tabs 03/20/22 Previous Rx's Medication Instructions Recorded fluoxetine 20 mg capsule 40 mg PO DAILY #60 caps 08/25/21 metformin 500 mg tablet 500 mg PO BID #180 tabs 12/16/21 baclofen 20 mg tablet 20 mg PO TID #90 tabs 12/30/21 lorazepam 0.5 mg tablet 0.5 mg PO TID PRN anxiety #60 tabs 01/01/22 promethazine 25 mg tablet 25 mg PO TID PRN nausea and 01/06/22 vomiting #30 tabs albuterol sulfate 90 mcg/actuation 1 puff inhalation ONCE PRN 02/12/22 aerosol inhaler bronchospasm #8.5 grams acetaminophen 300 mg-codeine 30 mg 1 tab PO BID PRN pain #60 tabs 03/01/22 tablet nystatin 100,000 unit/mL oral 500,000 unit (5 mL) buccal QID 03/18/22 suspension #480 mL benzonatate 100 mg capsule 100 mg PO TID PRN cough #30 caps 03/19/22 oseltamivir 75 mg capsule 75 mg PO Q12H 5 days #10 caps 03/20/22 prednisone 20 mg tablet 60 mg PO DAILY 4 days #12 tabs 03/20/22 Allergies Allergy/AdvReac Type Severity Reaction Status Date / Time cephalexin monohydrate Allergy Severe Anaphylaxsi Verified 03/20/22 15:14 [From Keflex] s nitrofurantoin Allergy Severe Anaphylaxsi Verified 03/20/22 15:14 [From Macrobid] s Sulfa (Sulfonamide Allergy Severe Anaphylaxsi Verified 03/20/22 15:14 Antibiotics) s topiramate [From Topamax] Allergy Severe Anaphylaxsi Verified 03/20/22 15:14 s ibuprofen Allergy Mild Hives Verified 03/20/22 15:14 cefazolin Allergy Unknown Other (See Verified 03/20/22 15:14 Comment) celecoxib [From Celebrex] Allergy Unknown Hives Verified 03/20/22 15:14 duloxetine [From Cymbalta] Allergy Unknown Swelling/Ed Verified 03/20/22 15:14 bert naproxen Allergy Unknown Hives Verified 03/20/22 15:14 pregabalin [From Lyrica] Allergy Unknown Swelling/Ed Verified 03/20/22 15:14 bert tramadol Allergy Unknown Unverified 03/20/22 15:14 wheat Allergy Unknown Verified 03/20/22 15:14 gabapentin AdvReac Intermediate Heart Verified 03/20/22 15:14 Races, per pt General Stated Complaint: RespSymp NICOLE: 3 Review of Systems All systems reviewed & are unremarkable except as noted in HPI and below Constitutional Constitutional: Denies chills, Denies fever(s) and Denies weakness Cardiovascular Cardiovascular: Denies chest pain and Denies dyspnea Respiratory Respiratory: Denies dyspnea Gastrointestinal Gastrointestinal: Denies abdominal pain, Denies nausea and Denies vomiting Musculoskeletal Musculoskeletal: Denies joint swelling Neurologic Neurologic: Denies weakness PFSH All Active Problems (Updated 03/20/22 @ 17:03 by Jarvis Orantes MD) Cough (Acute) Influenza (Acute) Hyperreflexia (Acute) Neuropathic pain (Acute) Asthma (Chronic) Incisional hernia of anterior abdominal wall without obstruction or gangrene (Acute) Anxiety with depression (Acute) Somatoform disorder (Acute) Unspecified disorder of eye movements (Acute) Learning disability (Acute) Chronic GERD (Acute) Type 2 diabetes mellitus without complications (Acute) Hiatal hernia (Chronic) Carpal tunnel syndrome of right wrist (Acute) Chronic pain disorder (Chronic) Other specified polyneuropathies (Acute) PTSD (post-traumatic stress disorder) (Chronic) 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) Increased body mass index (BMI) (Acute) Leg cramping (Acute) Firmness of abdomen (Acute) URI (upper respiratory infection) (Acute) Dysuria (Acute) Follicular lymphoma (Acute) COVID-19 (Acute) Medical History H/O migraine Hydrocephalus s/p MACHINE TECHNICIAN shunting, revision at age 1 PCOS (polycystic ovarian syndrome) Small bowel obstruction Verruca warts (infectious) Surgical History H/O esophagogastroduodenoscopy (~05/09/10) [facility] [place] History of brain surgery Hydrocephalus as an infant History of placement of ear tubes S/P MACHINE TECHNICIAN shunt (~05/09/08) Last revision 2008 Family History Mother No problems noted. Father No problems noted. Maternal Grandfather No problems noted. Paternal Grandfather No problems noted. Maternal Grandmother No problems noted. Paternal Grandmother No problems noted. Social History Smoking/Tobacco Use Status: Never Second Hand Exposure: Yes Smoking risk assessment performed?: Yes Alcohol Intake: never Drug use: Never Substance use type: does not use Counseling given: No Counseling provided: none Household members: spouse Pets and animals: Yes Pets and animals: cat(s) How often do you talk on the phone with friends or family?: three or more times per week How often do you get together with friends or relatives?: three or more times per week Do you belong to any clubs or organized social groups?: no Panel score (0-1 are the most socially isolated patients): 1 What type of physical activity do you participate in: none Do you feel safe at home: Yes Do you feel safe in your relationship?: Yes Exam Const General: no acute distress Orientation: alert HENWA Head: normal to inspection Ears: external ears normal General nose exam: external nose normal Mouth: moist mucous membranes Eyes General: appearance normal, both eyes and all related structures Neck Neck: normal visual inspection Resp Effort & Inspection: normal respiratory effort, able to speak in complete sentences, audible wheezes and cough Cardio Rate: regular rate Skin General skin exam: no rashes or lesions noted Neuro General: patient alert and patient oriented x3 Extrem General: normal to inspection Psych Mental Status: mental status grossly normal Course Vital Signs Vital signs: Vital Signs Temperature 37.3 C 03/20/22 15:07 Pulse 124 H 03/20/22 15:07 Respiratory Rate 18 03/20/22 15:07 Blood Pressure 119/63 03/20/22 15:07 Pulse Oximetry 98 03/20/22 15:07 Temperature 37.3 C 03/20/22 15:07 Temperature Source Oral 03/20/22 15:07 Pulse 124 H 03/20/22 15:07 Respiratory Rate 18 03/20/22 15:07 Respiratory Effort Non-Labored 03/20/22 15:12 Blood Pressure 119/63 03/20/22 15:07 Blood Pressure Position Sitting 03/20/22 15:07 Pulse Oximetry 98 03/20/22 15:07 Oxygen Delivery Method Room Air 03/20/22 15:07 Oxygen Flow Rate 0 03/20/22 15:07 Pain Level 7 03/20/22 15:07
[2022-03-20] MEDS: Normal Saline 1,000 ML 1000 ML IV (15:45)
[2022-03-20] MEDS: methylPREDNISolone SUCC 125 MG VIAL IVP (15:49)
[2022-03-20 15:51] LABS: Abs Immature Grans 0.01 10^3/uL (0.0-0.06); Absolute Basophil Count 0.03 10^3/uL (0.0-0.2); Absolute Eosinophil Count 0.31 10^3/uL (0.0-0.7); Absolute Lymphocyte Count 0.84 10^3/uL (1.2-3.4); Absolute Monocyte Count 0.83 10^3/uL (0.1-0.8); Absolute Neutrophil Count 5.65 10^3/uL (1.2-6.7); Basophils % 0.4; HCT 39.5 % (36.0-46.0); HGB 12.9 g/dL (11.2-15.7); Immature Grans % 0.1; MCH 29.4 pg (27.0-33.0); MCHC 32.7 % (32.0-36.0); MCV 90 fL (80-95); MPV 10.2 fL (8.0-11.0); Monocytes % 10.8; Neutrophils % 73.7; Platelet Count 297 10^3/uL (130-400); RBC 4.39 10^6/uL (3.93-5.22); RDW 12.8 % (11.7-14.6); RDW-SD 42.3 fL; WBC 7.67 10^3/uL (4.4-10.8)
[2022-03-20 16:02] VITALS: RESP 4
[2022-03-20] MEDS: Albuterol/Ipratropium 3 ML UPD VIAL UPD (16:02)
[2022-03-20 16:06] LABS: ALT 34 U/L (14-59); AST 13 U/L (15-37); Albumin 3.5 g/dL (3.4-5.0); Alkaline Phosphatase 127 U/L (46-116); Anion Gap 7.9 mmol/L (3-11); BUN 10 mg/dL (7-18); Bilirubin, Total 0.3 mg/dL (0.2-1.0); CO2 28.1 mmol/L (21.0-32.0); Calcium 8.7 mg/dL (8.5-10.1); Chloride 105 mmol/L (98-107); Estimated GFR 71.69 (mL/min/1.73m2); Glucose 105 mg/dL (74-106); Potassium 3.7 mmol/L (3.5-5.1); Sodium 141 mmol/L (136-145); Total Protein 7.4 g/dL (6.4-8.2)
--- NOTE | 2022-03-20 16:13 | DI.VRAD_ITS ---
PROCEDURE INFORMATION: Exam: XR Chest Exam date and time: 03/20/2022 3:39 PM Age: 41 years old Clinical indication: Cough TECHNIQUE: Imaging protocol: Radiologic exam of the chest. Views: 1 view. COMPARISON: XR PORTABLE CHEST AP 28/01/2021 18:54 FINDINGS: Lungs: Unremarkable. No consolidation. Pleural spaces: Unremarkable. No pleural effusion. No pneumothorax. Heart/Mediastinum: Stable cardiomediastinal silhouette. Diaphragm: Eventration of the right hemidiaphragm stable compared with prior study. Bones/joints: Unremarkable for patient's age. IMPRESSION: No acute cardiopulmonary findings. Dictated and Authenticated by: Brenda Ritchie MD. Ordering:TUCKER Conley MD
[2022-03-20 16:28] LABS: COVID-19 PCR Negative (Negative); Influenza A PCR Positive (Negative); Influenza B PCR Negative (Negative); RSV PCR Negative (Negative)
[2022-03-20 16:37] LABS: Source Nasopharynx
[2022-03-20] MEDS: Oseltamivir 75 MG CAP PO (17:16)
== END 2022-03-20 17:17 | disposition home or self-care (01) ==
PROVIDERS: Emergency Provider Emergency Medicine; PCP Nurse Practitioner Family
DX: J11.1 Influenza due to unidentified influenza virus with other respiratory manifestations (principal); J45.909 Unspecified asthma, uncomplicated; E11.9 Type 2 diabetes mellitus without complications; C85.90 Non-Hodgkin lymphoma, unspecified, unspecified site; Z20.822 Contact with and (suspected) exposure to COVID-19; Z79.84 Long term (current) use of oral hypoglycemic drugs
CPT/HCPCS: 36415; 80053; 87637; 96361; 96374; 99284; 71045; 85025; J2930; J7620

== ENCOUNTER 2022-04-06 08:20 | Emergency (ER) | payer MEDICARE, SELFPAY ==
[2022-04-06 09:14] VITALS: BP 128/80; PULSE 99; RESP 17; TEMP 36.8; O2SAT 94
[2022-04-06 09:16] LABS: Bilirubin Negative (Negative); Blood Negative (Negative); Clarity Clear (Clear); Glucose Negative (Negative); Ketones Negative (Negative); Leukocyte Esterase Negative (Negative); Nitrite Negative (Negative); Specific Gravity <= 1.005 (1.005-1.025); Urobilinogen 0.2 EU/dL (Up TO 0.2)
--- NOTE | 2022-04-06 10:09 | ED.GENADUL_ITS ---
Discharge Plan Disposition Patient Disposition: Home Condition: Stable Discharge Details Clinical Impression: Cystitis Primary Care Provider: Wallace Negron ED Provider: Amadeo Eldridge Home Meds and New Rx's Prescriptions: New phenazopyridine [Pyridium] 100 mg tablet 100 mg PO TID PRN (Reason: pain) Qty: 6 0RF Continued polyethylene glycol 3350 [Miralax] 17 gram/dose powder 17 g PO DAILY PRN metformin 500 mg tablet 500 mg PO BID Qty: 180 0RF lorazepam 0.5 mg tablet 0.5 mg PO TID PRN (Reason: anxiety) Qty: 60 3RF promethazine 25 mg tablet 25 mg PO TID PRN (Reason: nausea and vomiting) Qty: 30 0RF albuterol sulfate 90 mcg/actuation HFA aerosol inhaler 1 puff inhalation ONCE PRN (Reason: bronchospasm) Qty: 8.5 5RF Rx Instructions: Every 4 hours PRN benzonatate 100 mg capsule 100 mg PO TID PRN (Reason: cough) Qty: 30 0RF acetaminophen-codeine 300-30 mg tablet 1 tab PO BID PRN (Reason: pain) Qty: 60 0RF fluoxetine 20 mg capsule 40 mg PO DAILY Qty: 180 3RF baclofen 20 mg tablet 20 mg PO TID Qty: 90 2RF esomeprazole magnesium 40 mg capsule,delayed release(DR/EC) 40 mg PO BID Label Comments: TK 1 C PO BID Discharge Instructions Instructions: Pelvic Pain in Women (ED) Additional Instructions: If you have any new or worsening symptoms such as fever, nausea vomiting, or significant worsening of symptoms return to the emergency department or urgent care for reassessment. Otherwise follow your primary care provider if not improving in the next week. As discussed please drink 3 to 4 L of water per day and take medication as prescribed Referrals: Wallace Negron, PROCESSING ASSOCIATE [Primary Care Provider] - 1 week (If not improving call the office for arrangement of follow-up appointment.) Discharge Data Discharge Date/Time-TO BE ENTERED AT DEPARTURE: 04/06/22 10:23 Medical Decision Making Pt here for Dysuria. Symptoms for 2 days. denies fever, abd pain, nausea, diarrhea, flank pain or vaginal symptoms. Exam shows no CVA tenderness, mild supra-pubic tenderness, otherwise neg exam and pt is non toxic in apperance. ddx to include acute cyctitis/UTI, urethritis, Doubt Pyelonephritis or Infected kidney stone UA is unremarkable. Did review patient's past medical records and she has had multiple visits for similar symptoms with contaminated specimens on culture. Given no findings today I will perform a urine culture to see if there are any findings but otherwise with unremarkable urinalysis will not treat with antibiotics. Will use Pyridium to help with patient's pain and discomfort and have patient follow-up with primary care rider for reassessment. If not improving 1 potential cause could be interstitial cystitis or other form of cystitis that has not been diagnosed yet. Patient was encouraged to drink 3 to 4 L of water while on Pyridium and to return for any new or worsening symptoms. Did discuss with patient sexual activity and she states that she is not sexually active and has not used any new soaps or lotions to cause a urethritis or irritant. After discussion of diagnosis and plan of care patient has no further needs, questions, or concerns and states clear understanding to return to the emergency department for any worsening symptoms. This documentation was generated using Droboation system, please disregard any oddities of phrase or misspellings. Sign Out No HPI General Mode of arrival: ambulatory . Date/Time Provider Initiated Documentation: 04/06/22 09:32 . Limitations to Documentation: no limitations . Information obtained by: RN notes reviewed . History of Present Illness 41 year old F presents to the emergency department with the chief complaint of Dysuria, described as moderate, with intensity rated at 4. Quality is described as aching, and is localized to the abdomen. Patient reports no radiation. Patient started experiencing this day(s) (2) and it has been constant. No relieving factors improve symptom(s), No exacerbating factors reported . Patient notes no other symptoms.. Patient did receive the following treatments prior to arrival, none Related Data Home Medications Medication Instructions Recorded Confirmed esomeprazole magnesium 40 mg 40 mg PO BID 09/23/19 04/06/22 capsule,delayed release polyethylene glycol 3350 17 17 g PO DAILY PRN 07/16/20 04/06/22 gram/dose oral powder (Miralax) metformin 500 mg tablet 500 mg PO BID #180 tabs 12/16/21 04/06/22 lorazepam 0.5 mg tablet 0.5 mg PO TID PRN anxiety #60 tabs 01/01/22 04/06/22 promethazine 25 mg tablet 25 mg PO TID PRN nausea and 01/06/22 04/06/22 vomiting #30 tabs albuterol sulfate 90 mcg/actuation 1 puff inhalation ONCE PRN 02/12/22 04/06/22 aerosol inhaler bronchospasm #8.5 grams benzonatate 100 mg capsule 100 mg PO TID PRN cough #30 caps 03/19/22 04/06/22 acetaminophen 300 mg-codeine 30 mg 1 tab PO BID PRN pain #60 tabs 03/26/22 04/06/22 tablet fluoxetine 20 mg capsule 40 mg PO DAILY #180 caps 03/30/22 04/06/22 baclofen 20 mg tablet 20 mg PO TID #90 tabs 03/31/22 04/06/22 phenazopyridine 100 mg tablet 100 mg PO TID PRN pain 6 doses #6 04/06/22 (Pyridium) tabs Previous Rx's Medication Instructions Recorded metformin 500 mg tablet 500 mg PO BID #180 tabs 12/16/21 lorazepam 0.5 mg tablet 0.5 mg PO TID PRN anxiety #60 tabs 01/01/22 promethazine 25 mg tablet 25 mg PO TID PRN nausea and 01/06/22 vomiting #30 tabs albuterol sulfate 90 mcg/actuation 1 puff inhalation ONCE PRN 02/12/22 aerosol inhaler bronchospasm #8.5 grams benzonatate 100 mg capsule 100 mg PO TID PRN cough #30 caps 03/19/22 acetaminophen 300 mg-codeine 30 mg 1 tab PO BID PRN pain #60 tabs 03/26/22 tablet fluoxetine 20 mg capsule 40 mg PO DAILY #180 caps 03/30/22 baclofen 20 mg tablet 20 mg PO TID #90 tabs 03/31/22 phenazopyridine 100 mg tablet 100 mg PO TID PRN pain 6 doses #6 04/06/22 (Pyridium) tabs Allergies Allergy/AdvReac Type Severity Reaction Status Date / Time cephalexin monohydrate Allergy Severe Anaphylaxsi Verified 04/06/22 09:46 [From Keflex] s nitrofurantoin Allergy Severe Anaphylaxsi Verified 04/06/22 09:46 [From Macrobid] s Sulfa (Sulfonamide Allergy Severe Anaphylaxsi Verified 04/06/22 09:46 Antibiotics) s topiramate [From Topamax] Allergy Severe Anaphylaxsi Verified 04/06/22 09:46 s ibuprofen Allergy Mild Hives Verified 04/06/22 09:46 cefazolin Allergy Unknown Other (See Verified 04/06/22 09:46 Comment) celecoxib [From Celebrex] Allergy Unknown Hives Verified 04/06/22 09:46 duloxetine [From Cymbalta] Allergy Unknown Swelling/Ed Verified 04/06/22 09:46 bert naproxen Allergy Unknown Hives Verified 04/06/22 09:46 pregabalin [From Lyrica] Allergy Unknown Swelling/Ed Verified 04/06/22 09:46 bert tramadol Allergy Unknown Unverified 04/06/22 09:46 wheat Allergy Unknown Verified 04/06/22 09:46 gabapentin AdvReac Intermediate Heart Verified 04/06/22 09:46 Races, per pt General Stated Complaint: Urinary NICOLE: 4 Review of Systems Constitutional Constitutional: Denies body ache(s), Denies chills, Denies fever(s), Denies malaise and Denies weakness Cardiovascular Cardiovascular: Denies chest pain Respiratory Respiratory: Reports system reviewed and no additional complaints, except as documented Gastrointestinal Gastrointestinal: Denies abdominal pain, Denies nausea and Denies vomiting Genitourinary Genitourinary: Reports as per HPI, Denies hematuria, Denies difficulty voiding, Reports dysuria, Denies pelvic pain, Denies flank pain, Denies urinary incontinence, Denies urinary hesitancy and Reports urinary urgency Neurologic Neurologic: Denies confusion and Denies weakness Psychiatric Psychiatric: Denies confusion PFSH All Active Problems (Updated 04/06/22 @ 10:14 by Amadeo Eldridge NP) Cystitis (Acute) Cough (Acute) Influenza (Acute) Hyperreflexia (Acute) Neuropathic pain (Acute) Asthma (Chronic) Incisional hernia of anterior abdominal wall without obstruction or gangrene (Acute) Anxiety with depression (Acute) Somatoform disorder (Acute) Unspecified disorder of eye movements (Acute) Learning disability (Acute) Chronic GERD (Acute) Type 2 diabetes mellitus without complications (Acute) Hiatal hernia (Chronic) Carpal tunnel syndrome of right wrist (Acute) Chronic pain disorder (Chronic) Other specified polyneuropathies (Acute) PTSD (post-traumatic stress disorder) (Chronic) 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) Increased body mass index (BMI) (Acute) Leg cramping (Acute) Firmness of abdomen (Acute) URI (upper respiratory infection) (Acute) Dysuria (Acute) Follicular lymphoma (Acute) COVID-19 (Acute) Medical History H/O migraine Hydrocephalus s/p 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 Father No problems noted. Maternal Grandfather No problems noted. Paternal Grandfather No problems noted. Maternal Grandmother No problems noted. Paternal Grandmother No problems noted. Social History Smoking/Tobacco Use Status: Never Second Hand Exposure: Yes Smoking risk assessment performed?: Yes Alcohol Intake: never Drug use: Never Substance use type: does not use Counseling given: No Counseling provided: none Household members: spouse Pets and animals: Yes Pets and animals: cat(s) How often do you talk on the phone with friends or family?: three or more times per week How often do you get together with friends or relatives?: three or more times per week Do you belong to any clubs or organized social groups?: no Panel score (0-1 are the most socially isolated patients): 1 What type of physical activity do you participate in: none Do you feel safe at home: Yes Do you feel safe in your relationship?: Yes Exam Const General: cooperative and no acute distress Orientation: alert, awake and oriented x3 Resp Effort & Inspection: normal respiratory effort and able to speak in complete sentences Auscultation: clear to auscultation bilaterally Cardio Rate: regular rate Rhythm: regular rhythm Heart Sounds: S1 normal and S2 normal GI Palpation: tender suprapubicly Back/Spine/Pelvis Back: no CVA tenderness Neuro General: patient alert, patient awake and patient oriented x3 Extrem General: capillary refill normal Course Vital Signs Vital signs: Vital Signs Temperature 36.8 C 04/06/22 09:14 Pulse 99 H 04/06/22 09:14 Respiratory Rate 17 04/06/22 09:14 Blood Pressure 128/80 04/06/22 09:14 Pulse Oximetry 94 04/06/22 09:14 Temperature 36.8 C 04/06/22 09:14 Temperature Source Temporal Artery Scan 04/06/22 09:14 Pulse 99 H 04/06/22 09:14 Respiratory Rate 17 04/06/22 09:14 Respiratory Effort Non-Labored 04/06/22 09:44 Blood Pressure 128/80 04/06/22 09:14 Blood Pressure Position Sitting 04/06/22 09:14 Pulse Oximetry 94 04/06/22 09:14 Oxygen Delivery Method Room Air 04/06/22 09:14 Oxygen Flow Rate 0 04/06/22 09:14 Pain Level 4 04/06/22 09:14 Lab/Test Results Lab/Test Results: Laboratory Tests Range/Units 04/06/22 09:06 Urine Color (Yellow) Yellow Urine Clarity (Clear) Clear Urine pH (5-8) 6.0 Ur Specific [place] (1.005-1.025) <= 1.005 Urine Protein (Negative) mg/dL Negative Urine Ketones (Negative) mg/dL Negative Urine Blood (Negative) Negative Urine Nitrite (Negative) Negative Urine Bilirubin (Negative) Negative Urine Urobilinogen (Up TO 0.2) EU/dL 0.2 Ur Leukocyte Esterase (Negative) Negative Urine Glucose (Negative) mg/dL Negative
== END 2022-04-06 10:23 | disposition home or self-care (01) ==
PROVIDERS: Emergency Provider Nurse Practitioner Family; PCP Nurse Practitioner Family
DX: N30.00 Acute cystitis without hematuria (principal)
CPT/HCPCS: 99283; 81003; 87086

== ENCOUNTER 2022-04-20 14:16 | Outpatient (CLI) | payer MEDICARE, SELFPAY ==
[2022-04-20 14:21] LABS: Abs Immature Grans 0.02 10^3/uL (0.0-0.06); Absolute Basophil Count 0.04 10^3/uL (0.0-0.2); Absolute Eosinophil Count 0.23 10^3/uL (0.0-0.7); Absolute Lymphocyte Count 1.89 10^3/uL (1.2-3.4); Absolute Neutrophil Count 4.25 10^3/uL (1.2-6.7); Basophils % 0.6; Eosinophils % 3.2; HCT 41.2 % (36.0-46.0); HGB 13.2 g/dL (11.2-15.7); Immature Grans % 0.3; Lymphocytes % 26.5; MCH 28.9 pg (27.0-33.0); MCV 90 fL (80-95); Monocytes % 9.8; Neutrophils % 59.6; Platelet Count 330 10^3/uL (130-400); RBC 4.56 10^6/uL (3.93-5.22); RDW 12.9 % (11.7-14.6); RDW-SD 42.7 fL; WBC 7.13 10^3/uL (4.4-10.8)
[2022-04-20 14:40] LABS: Calculated LDL 159 mg/dL (<100); Cholesterol 232 mg/dL (<200); HDL Cholesterol 51 mg/dL (40-60); Triglyceride 111 mg/dL (<150)
[2022-04-20 14:41] LABS: ALT 27 U/L (14-59); AST 10 U/L (15-37); Albumin 3.8 g/dL (3.4-5.0); Alkaline Phosphatase 108 U/L (46-116); Anion Gap 7.2 mmol/L (3-11); BUN 16 mg/dL (7-18); Bilirubin, Total 0.2 mg/dL (0.2-1.0); CO2 29.8 mmol/L (21.0-32.0); Calcium 9.3 mg/dL (8.5-10.1); Chloride 103 mmol/L (98-107); Estimated GFR 71.69 (mL/min/1.73m2); Glucose 93 mg/dL (74-106); LDH 143 U/L (81-234); Potassium 4.1 mmol/L (3.5-5.1); Sodium 140 mmol/L (136-145); Total Protein 7.5 g/dL (6.4-8.2)
[2022-04-20 14:53] LABS: Hemoglobin A1C 5.7 % (<5.7)
== END 2022-04-20 14:17 | disposition home or self-care (01) ==
LOC: LBO 14:16
PROVIDERS: PCP Nurse Practitioner Family; Visit Provider Internal Medicine Hematology
DX: E11.9 Type 2 diabetes mellitus without complications (principal); C82.00 Follicular lymphoma grade I, unspecified site
CPT/HCPCS: 36415; 80053; 80061; 83036; 83615; 85025

== ENCOUNTER 2022-06-14 14:02 | Outpatient (REF) | payer MEDICARE, SELFPAY | END 2022-06-14 14:03 | disposition home or self-care (01) | LOC: LBN 14:02 | PROVIDERS: PCP Nurse Practitioner Family; Visit Provider Nurse Practitioner Family | DX: R39.15 Urgency of urination (principal) | CPT/HCPCS: 87086 ==

== ENCOUNTER 2022-07-10 17:20 | Emergency (ER) | payer MEDICARE, SELFPAY ==
[2022-07-10 17:24] VITALS: BP 120/80; PULSE 112; RESP 18; TEMP 36.8; O2SAT 97
--- NOTE | 2022-07-10 17:41 | ED.GENADUL_ITS ---
Discharge Plan Disposition Patient Disposition: Home Condition: Good Discharge Details Clinical Impression: Abdominal pain, Follicular lymphoma Primary Care Provider: Wallace Negron ED Provider: Gianluca Herron [place] Meds and New Rx's Prescriptions: Continued albuterol sulfate 90 mcg/actuation HFA aerosol inhaler 1 puff inhalation ONCE PRN (Reason: bronchospasm) Qty: 8.5 5RF Rx Instructions: Every 4 hours PRN fluoxetine 20 mg capsule 40 mg PO DAILY Qty: 180 3RF baclofen 20 mg tablet 20 mg PO TID Qty: 90 2RF lorazepam 0.5 mg tablet 0.5 mg PO TID PRN (Reason: anxiety) Qty: 56 3RF acetaminophen-codeine 300-30 mg tablet 1 tab PO BID PRN (Reason: pain) Qty: 55 0RF metformin 500 mg tablet 500 mg PO BID Qty: 180 3RF esomeprazole magnesium 40 mg capsule,delayed release(DR/EC) 40 mg PO BID Patient Comments: TK 1 C PO BID Discharge Instructions Instructions: Abdominal Pain (ED) Additional Instructions: You were seen in the ED for abdominal pain. Your work-up included laboratory studies, urinalysis, CT scan all of which are reassuring. You have a normal a ppendix, normal gallbladder, no evidence of UTI. You do have enlargement of your lymph nodes in the mesenteric mass. You should contact Dr. Mckinley on Tuesday for follow-up. In regards to the abdominal pain I would stick with clear liquid/bland diet, continue current medications, follow-up with primary care if not improving next week. Return to the ED if you develop severe worsening pain, fever, persistent vomiting, bloody diarrhea, other concerns. Referrals: Asia Polk MD [ NON-[facility] STAFF PHYSICIAN] - Wallace Negron, MANAGER ACUTE [Primary Care Provider] - Medical Decision Making Patient presenting to the ED with worsening right-sided abdominal pain with associated nausea and pain with deep breaths. She is tender with guarding in the right upper quadrant. She has a firm abdomen but per the patient this is baseline. Concern for acute cholecystitis, less likely liver related. Some tenderness in the right lower quadrant so consider appendicitis. IV in place. Will give fluids and IV Tylenol at this time. Laboratory studies and CT scan ordered. Patient's laboratory studies essentially normal CBC, unremarkable chemistries, unremarkable LFTs except for slight elevation of alk phos to 132, normal lipase. Urinalysis negative for infection. CT scan with normal appendix and normal gallbladder. She has interval worsening of a known mesenteric mass as well as retroperitoneal lymph nodes. She is followed by Dr. [place] of heme-onc at [facility] for follicular lymphoma. Patient with some evidence of fluid-filled nondilated small bowel loops consistent with enteritis. However patient is not having vomiting or diarrhea. Discussed findings with patient. She is not in significant discomfort. She has had abdominal pain on and off previously. We discussed follow-up with PCP for her abdominal pain. We discussed follow-up with heme-onc for interval worsening of her CT scan. Feel patient is safe for discharge home. Patient given return precautions. Medical Records Medical records reviewed: Yes I reviewed the patient's medical records. Medical records narrative: Reviewed heme-onc note from [facility]. Lab Data Lab results reviewed: Yes I reviewed the patient's lab results. HPI General Mode of arrival: ambulatory . Date/Time Provider Initiated Documentation: 07/10/22 17:39 . Limitations to Documentation: no limitations . Information obtained by: patient . HPI Narrative: Patient presents to ED with right-sided abdominal pain that began this morning and has worsened throughout the day. Pain is mostly right upper quadrant. It does not radiate to the back, shoulder, chest. She has nausea but no vomiting. Pain worse after she tries to eat. No urinary symptoms. No fever that she is aware of. Hurts in the right upper quadrant to take a deep breath but does not feel short of breath. Only abdominal surgery she has had previously is H[employer] RECORDS CLERK shunt placement. Related Data Home Medications Medication Instructions Recorded Confirmed esomeprazole magnesium 40 mg 40 mg PO BID 09/23/19 07/10/22 capsule,delayed release albuterol sulfate 90 mcg/actuation 1 puff inhalation ONCE PRN 02/12/22 07/10/22 aerosol inhaler bronchospasm #8.5 grams fluoxetine 20 mg capsule 40 mg PO DAILY #180 caps 03/30/22 07/10/22 baclofen 20 mg tablet 20 mg PO TID #90 tabs 03/31/22 07/10/22 lorazepam 0.5 mg tablet 0.5 mg PO TID PRN anxiety #56 tabs 04/28/22 07/10/22 acetaminophen 300 mg-codeine 30 mg 1 tab PO BID PRN pain #55 tabs 06/25/22 07/10/22 tablet metformin 500 mg tablet 500 mg PO BID #180 tabs 07/09/22 07/10/22 Previous Rx's Medication Instructions Recorded albuterol sulfate 90 mcg/actuation 1 puff inhalation ONCE PRN 02/12/22 aerosol inhaler bronchospasm #8.5 grams fluoxetine 20 mg capsule 40 mg PO DAILY #180 caps 03/30/22 baclofen 20 mg tablet 20 mg PO TID #90 tabs 03/31/22 lorazepam 0.5 mg tablet 0.5 mg PO TID PRN anxiety #56 tabs 04/28/22 acetaminophen 300 mg-codeine 30 mg 1 tab PO BID PRN pain #55 tabs 06/25/22 tablet metformin 500 mg tablet 500 mg PO BID #180 tabs 07/09/22 Allergies Allergy/AdvReac Type Severity Reaction Status Date / Time cephalexin monohydrate Allergy Severe Anaphylaxsi Verified 07/10/22 17:27 [From Keflex] s nitrofurantoin Allergy Severe Anaphylaxsi Verified 07/10/22 17:27 [From Macrobid] s Sulfa (Sulfonamide Allergy Severe Anaphylaxsi Verified 07/10/22 17:27 Antibiotics) s topiramate [From Topamax] Allergy Severe Anaphylaxsi Verified 07/10/22 17:27 s ibuprofen Allergy Mild Hives Verified 07/10/22 17:27 cefazolin Allergy Unknown Other (See Verified 07/10/22 17:27 Comment) celecoxib [From Celebrex] Allergy Unknown Hives Verified 07/10/22 17:27 duloxetine [From Cymbalta] Allergy Unknown Swelling/Ed Verified 07/10/22 17:27 bert naproxen Allergy Unknown Hives Verified 07/10/22 17:27 pregabalin [From Lyrica] Allergy Unknown Swelling/Ed Verified 07/10/22 17:27 bert tramadol Allergy Unknown Unverified 07/10/22 17:27 wheat Allergy Unknown Verified 07/10/22 17:27 gabapentin AdvReac Intermediate Heart Verified 07/10/22 17:27 Races, per pt General Stated Complaint: FlankPain NICOLE: 3 Review of Systems Narrative: Per HPI PFSH All Active Problems (Updated 07/10/22 @ 19:59 by Gianluca Herron MD) Abdominal pain (Acute) Hyperreflexia (Acute) Neuropathic pain (Acute) Asthma (Chronic) Incisional hernia of anterior abdominal wall without obstruction or gangrene (Acute) Anxiety with depression (Acute) Somatoform disorder (Acute) Unspecified disorder of eye movements (Acute) Learning disability (Acute) Chronic GERD (Acute) Hiatal hernia (Chronic) Carpal tunnel syndrome of right wrist (Acute) Chronic pain disorder (Chronic) Other specified polyneuropathies (Acute) 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) Increased body mass index (BMI) (Acute) Leg cramping (Acute) Firmness of abdomen (Acute) URI (upper respiratory infection) (Acute) Dysuria (Acute) Follicular lymphoma (Acute) COVID-19 (Acute) Medical History Dandy-Walker syndrome H/O migraine Hydrocephalus s/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 Father No problems noted. Maternal Grandfather No problems noted. Paternal Grandfather No problems noted. Maternal Grandmother No problems noted. Paternal Grandmother No problems noted. Social History Smoking/Tobacco Use Status: Never Second Hand Exposure: Yes Smoking risk assessment performed?: Yes Alcohol Intake: never Drug use: Never Substance use type: does not use Counseling given: No Counseling provided: none Household members: spouse Pets and animals: Yes Pets and animals: cat(s) How often do you talk on the phone with friends or family?: three or more times per week How often do you get together with friends or relatives?: three or more times per week Do you belong to any clubs or organized social groups?: no Panel score (0-1 are the most socially isolated patients): 1 What type of physical activity do you participate in: none Do you feel safe at home: Yes Do you feel safe in your relationship?: Yes Exam Narrative Exam Narrative: Const: WDWN female in NAD. HEENT: NC/AT. Normal facial exam. Neck: Supple. Trachea midline. Lungs: Normal respiratory effort. Lungs are clear. Cor: RRR without murmur/gallop. Good radial pulses. GI: Firm (baseline per patient). Tender RLQ without guarding, tender RUQ with guarding Back: No CVAT Neuro: A+O x 3. Normal speech, mentation, gait. Cranial nerves II - XII grossly intact. No gross motor or sensory deficit. Ext: No C/C/E. Skin: Warm and dry without rash. Course Vital Signs Vital signs: Vital Signs Temperature 98.3 F 07/10/22 17:24 Pulse 112 H 07/10/22 17:24 Respiratory Rate 18 07/10/22 17:24 Blood Pressure 120/80 07/10/22 17:24 Pulse Oximetry 97 07/10/22 17:24 Temperature 98.3 F 07/10/22 17:24 Temperature Source Tympanic 07/10/22 17:24 Pulse 112 H 07/10/22 17:24 Respiratory Rate 18 07/10/22 17:24 Respiratory Effort Normal, Non-Labored 07/10/22 17:26 Blood Pressure 120/80 07/10/22 17:24 Pulse Oximetry 97 07/10/22 17:24 Oxygen Delivery Method Room Air 07/10/22 17:24 Oxygen Flow Rate 0 07/10/22 17:24
--- NOTE | 2022-07-10 17:48 | DI.CT_ITS ---
Exam(s) CT ABDOMEN PELVIS W EXAM: CT ABDOMEN PELVIS W CLINICAL HISTORY: RUQ/RLQ pain/tenderness. TECHNIQUE: Imaging Protocol: Axial computed tomography images with coronal and sagittal reformatted images were created and reviewed CONTRAST MATERIAL: Intravenous: Omnipaque-350 100cc Oral: None COMPARISON: CT CT ABDOMEN PELVIS W from 06/08/2021 FINDINGS: VISUALIZED LUNG BASES: No nodules nor pleural effusions evident. ABDOMEN: Ventriculoperitoneal shunt again noted. Distal tip is in the right-side of the abdomen. No ascites. Again noted is a previously described soft tissue mass density in the mesenteric root and extending d istally, similar to prior study, perhaps slightly larger and there is wxutftqstlbxgea-fede-samfqh charly nopathy again noted, also slightly increased. There does not appear to be occlusion of the encircled branches of the superior mesenteric artery. Superior mesenteric vein branches are also involved but not thrombosed nor occluded. There is no ascites. LIVER: Small 6 millimeter hypodensity in the right hepatic lobe is unchanged and is probably benign s mall cyst. No dilated intrahepatic ducts. GALLBLADDER/BILIARY: No obvious gallbladder pathology. CBD is not dilated. PANCREAS: No evidence of pancreatic mass nor dilatation of the pancreatic duct. SPLEEN: Spleen is not enlarged. No obvious intrasplenic lesions. Splenic and portal veins are paten t. ADRENALS: There are no significant adrenal masses. KIDNEYS:No cysts evident. No solid renal masses. No calculi nor hydronephrosis.. ABDOMINAL AORTA: Abdominal aorta is not enlarged. LYMPH NODES:Mild further increase in xvwgpdlgkffdbng-vfff-ppxmhf adenopathy. ABDOMINAL WALL: No evidence of significant anterior abdominal wall nor inguinal hernia. GI: There is no evidence of bowel obstruction, free air, nor abscess. PELVIS: GI: No evidence of appendicitis.No evidence of sigmoid diverticulitis. LYMPH NODES: There is no intrapelvic nor inguinal adenopathy. REPRODUCTIVE: Uterus and ovaries exhibit normal size. There is peripherally enhancing corpus luteal cyst in the left ovary measuring 1.7 x 1.6 cm. No free fluid in the cul-de-sac. URINARY BLADDER: No calculi nor obvious masses evident OSSEOUS: No fractures and no significant osseous lesions. IMPRESSION: 1. Compared to the prior CT scan of 06/08/2021 the previously described mass at the root of the mesen leighton is again noted and appears minimally further increased in size. There is also retroperitoneal-p steph-aortic adenopathy also mildly increased. Main considerations are for malignancy/lymphoma/carcinoid tumor. 2. No splenomegaly nor ascites. 3. No bowel obstruction. 4. Corpus luteal cyst noted in the left ovary. RADIATION DOSE DELIVERED: 1,167.49mGy.cm Total DLP DATA REPOSITORY: All CT scans at this facility are submitted to the National Radiology Data Registry (NRDR) Dose Index Registry (DIR) with the [employer] (A[employer]). RADIATION OPTIMIZATION: All CT scans at this facility use at least one of these dose optimization te chniques: automated exposure control; mA and/or kV adjustment per patient size (includes targeted exa ms where dose is matched to clinical indication); or iterative reconstruction.
[2022-07-10 17:58] LABS: Abs Immature Grans 0.04 10^3/uL (0.0-0.06); Absolute Basophil Count 0.03 10^3/uL (0.0-0.2); Absolute Eosinophil Count 0.12 10^3/uL (0.0-0.7); Absolute Monocyte Count 0.61 10^3/uL (0.1-0.8); Absolute Neutrophil Count 9.42 10^3/uL (1.2-6.7); Basophils % 0.3; Eosinophils % 1.1; HCT 44.4 % (36.0-46.0); HGB 14.5 g/dL (11.2-15.7); Immature Grans % 0.4; Lymphocytes % 5.5; MCHC 32.7 % (32.0-36.0); MCV 89 fL (80-95); MPV 10.4 fL (8.0-11.0); Monocytes % 5.6; Neutrophils % 87.1; Platelet Count 316 10^3/uL (130-400); RDW 12.5 % (11.7-14.6); RDW-SD 41.1 fL; WBC 10.82 10^3/uL (4.4-10.8)
[2022-07-10] MEDS: ACETAMINOPHEN 1,000 MG/100 ML BTL 400 MG IVPB (18:02)
[2022-07-10] MEDS: Lactated Ringers 1,000 ML 1000 ML IV (18:03)
[2022-07-10 18:13] LABS: ALT 45 U/L (14-59); AST 16 U/L (15-37); Albumin 3.8 g/dL (3.4-5.0); Alkaline Phosphatase 132 U/L (46-116); Anion Gap 9.3 mmol/L (3-11); BUN 20 mg/dL (7-18); Bilirubin, Total 0.5 mg/dL (0.2-1.0); CO2 24.7 mmol/L (21.0-32.0); Calcium 8.8 mg/dL (8.5-10.1); Chloride 105 mmol/L (98-107); Estimated GFR 71.24 (mL/min/1.73m2); Glucose 117 mg/dL (74-106); Lipase 34 U/L (16-77); Sodium 139 mmol/L (136-145); Total Protein 7.4 g/dL (6.4-8.2)
[2022-07-10] MEDS: Omnipaque 350 MG/ML 100 ML BTL IJ (18:25)
[2022-07-10] MEDS: Normal Saline - Diluent 50 ML VIAL IJ (18:25)
[2022-07-10 18:49] LABS: Bilirubin Negative (Negative); Blood Negative (Negative); Clarity Clear (Clear); Glucose Negative (Negative); Ketones Negative (Negative); Leukocyte Esterase Negative (Negative); Nitrite Negative (Negative); Specific Gravity >= 1.030 (1.005-1.025); Urobilinogen 0.2 mg/dL (Up to 0.2); pH 5.5 (5-8)
[2022-07-10 18:55] LABS: Bacteria Negative HPF (Negative); C & S Indicated? No; Casts Negative LPF (Negative); Crystals Negative HPF (Negative); Epithelial Cells Few HPF (Negative); Mucus Negative (Negative); Other Cells Negative (Negative); RBC 0-2 HPF (0-2); WBC 0-2 HPF (0-5)
--- NOTE | 2022-07-10 19:25 | DI.VRAD_ITS ---
PROCEDURE INFORMATION: Exam: CT Abdomen And Pelvis With Contrast Exam date and time: 07/10/2022 6:50 PM Age: 42 years old Clinical indication: Other: Ruq/rlq pain/tenderness TECHNIQUE: Imaging protocol: Computed tomography of the abdomen and pelvis with contrast. Contrast material: OMNIPAQUE 350; Contrast volume: 100 ml; Contrast route: INTRAVENOUS (IV); COMPARISON: CT ABDOMEN PELVIS W 06/08/2021 9:26 AM FINDINGS: Liver: Normal. Gallbladder and bile ducts: Normal. Pancreas: Normal. Spleen: Normal. Adrenal glands: Normal. No mass. Kidneys and ureters: Normal. Stomach and bowel: Colonic diverticulosis. Multiple loops of nondilated, gas and fluid-filled small and large bowel, possibly enteritis/diarrhea. Appendix: No evidence of appendicitis. Intraperitoneal space: Soft tissue attenuation mass and adjacent fat stranding within the mesenteric root, measuring approximately 7.2 cm in transverse dimension by 4.1 cm in cephalocaudal dimension, slightly increased from comparison study. Vasculature: Phleboliths within the pelvis. Lymph nodes: Multiple enlarged lymph nodes within the retroperitoneum, the largest measuring up to 2.2 cm in short axis diameter (series 7, image 439), increased from comparison study. Urinary bladder: Unremarkable as visualized. Reproductive: Unremarkable as visualized. Bones/joints: No acute abnormality. Soft tissues: Normal. IMPRESSION: 1. Multiple loops of nondilated, gas and fluid-filled small and large bowel, possibly enteritis/diarrhea. 2. Soft tissue attenuation mass and adjacent fat stranding within the mesenteric root, measuring approximately 7.2 cm in transverse dimension by 4.1 cm in cephalocaudal dimension, slightly increased from comparison study. Findings compatible with progression of process such as lymphoma or carcinoid tumor. Recommend further evaluation. 3. Multiple enlarged lymph nodes within the retroperitoneum, the largest measuring up to 2.2 cm in short axis diameter (series 7, image 439), increased from comparison study. Findings most compatible with metastases or lymphoma. Recommend further evaluation. Dictated and Authenticated by: Sree Hernandez MD. Ordering:GLADYS Hough MD
== END 2022-07-10 20:13 | disposition home or self-care (01) ==
PROVIDERS: Emergency Provider Emergency Medicine; PCP Nurse Practitioner Family
DX: R10.9 Unspecified abdominal pain (principal); C82.90 Follicular lymphoma, unspecified, unspecified site; R11.0 Nausea; R10.811 Right upper quadrant abdominal tenderness; R10.813 Right lower quadrant abdominal tenderness; R74.8 Abnormal levels of other serum enzymes; E11.9 Type 2 diabetes mellitus without complications; Z79.84 Long term (current) use of oral hypoglycemic drugs
CPT/HCPCS: 80053; 81025; 83690; 96361; 96365; 99285; 74177; 81003; 81015; 85025; 99284; J0131; J3490

== ENCOUNTER 2022-10-27 02:41 | Outpatient (CLI) | payer MEDICARE, SELFPAY ==
[2022-10-27 07:43] LABS: Abs Immature Grans 0.02 10^3/uL (0.0-0.06); Absolute Basophil Count 0.04 10^3/uL (0.0-0.2); Absolute Eosinophil Count 0.21 10^3/uL (0.0-0.7); Absolute Lymphocyte Count 1.48 10^3/uL (1.2-3.4); Absolute Monocyte Count 0.68 10^3/uL (0.1-0.8); Absolute Neutrophil Count 5.02 10^3/uL (1.2-6.7); Basophils % 0.5; Eosinophils % 2.8; HCT 42.5 % (36.0-46.0); HGB 13.9 g/dL (11.2-15.7); Immature Grans % 0.3; Lymphocytes % 19.9; MCH 29.1 pg (27.0-33.0); MCHC 32.7 % (32.0-36.0); MCV 89 fL (80-95); MPV 9.8 fL (8.0-11.0); Monocytes % 9.1; Neutrophils % 67.4; Platelet Count 293 10^3/uL (130-400); RBC 4.77 10^6/uL (3.93-5.22); RDW 12.2 % (11.7-14.6); RDW-SD 39.6 fL; WBC 7.45 10^3/uL (4.4-10.8)
[2022-10-27 08:08] LABS: ALT 42 U/L (14-59); AST 11 U/L (15-37); Albumin 3.7 g/dL (3.4-5.0); Alkaline Phosphatase 127 U/L (46-116); Anion Gap 7.8 mmol/L (3-11); BUN 20 mg/dL (7-18); Bilirubin, Total 0.2 mg/dL (0.2-1.0); CO2 29.2 mmol/L (21.0-32.0); CREATININE 0.9 mg/dL (0.55-1.02); Calcium 9.6 mg/dL (8.5-10.1); Chloride 103 mmol/L (98-107); Estimated GFR 80.84 (mL/min/1.73m2); Glucose 94 mg/dL (74-106); LDH 152 U/L (81-234); Potassium 4.1 mmol/L (3.5-5.1); Sodium 140 mmol/L (136-145); Total Protein 7.4 g/dL (6.4-8.2)
[2022-11-03 12:26] LABS: Protein C, Functional >150 % (71-199)
== END 2022-10-27 02:42 | disposition home or self-care (01) ==
LOC: LBO 02:41
PROVIDERS: PCP Nurse Practitioner Family; Visit Provider Internal Medicine Hematology & Oncology
DX: C82.00 Follicular lymphoma grade I, unspecified site (principal)
CPT/HCPCS: 36415; 80053; 83615; 85025; 85303

== ENCOUNTER 2022-12-12 12:16 | Emergency (ER) | payer MEDICARE, SELFPAY ==
[2022-12-12] VITALS (15 sets, daily range): BP systolic 112–136; BP diastolic 68–92; PULSE 78–92; RESP 10–20; TEMP 36.6; O2SAT 95–99
--- NOTE | 2022-12-12 12:30 | RT.EKG_ITS ---
APPROVED REPORT Exam: Resting ECG Reason for Exam: LILLIAN ARRIAZA Patient Location: E HR:84 bpm ECG Measurements Heart Rate 84 AXIS NV 134 P 39 QRSd 80 QRS 30 QT 364 T 13 QTc 431 Conclusion Sinus rhythm... V-rate 60- [address] segment or T wave abnormalities to suggest occlusive MA
--- NOTE | 2022-12-12 12:45 | DI.RAD_ITS ---
Exam(s) XR CHEST 2V PA LATERAL EXAM: XR CHEST 2V PA LATERAL CLINICAL HISTORY: shortness of breath and cough TECHNIQUE: 2D digital imaging was performed. COMPARISON: CR,XR XR PORTABLE CHEST AP from 03/20/2022 FINDINGS: HEART: Normal size. Aorta: Not dilated. PULMONARY VASCULATURE: Normal. LUNGS: Clear. PLEURAL SPACE: No pleural effusion or pneumothorax. BONE:Unremarkable for age. Stable eventration right diaphragm. IMPRESSION: No acute abnormality. DATA REPOSITORY: RADIATION DOSE DELIVERED:
--- NOTE | 2022-12-12 13:01 | ED.GENADUL_ITS ---
Discharge Plan Disposition Patient Disposition: Home Condition: Good Discharge Details Clinical Impression: Upper respiratory infection Primary Care Provider: Wallace Negron ED Provider: Marium Fairbanks Home Meds and New Rx's Prescriptions: No Action ciprofloxacin HCl 250 mg tablet 250 mg PO BID Qty: 6 0RF phenazopyridine [Pyridium] 100 mg tablet 100 mg PO TID PRN (Reason: pain) Qty: 6 0RF albuterol sulfate 90 mcg/actuation HFA aerosol inhaler 1 puff inhalation ONCE PRN (Reason: bronchospasm) Qty: 8.5 5RF Rx Instructions: Every 4 hours PRN fluoxetine 20 mg capsule 40 mg PO DAILY Qty: 180 3RF metformin 500 mg tablet 500 mg PO BID Qty: 180 3RF baclofen 20 mg tablet 20 mg PO TID Qty: 90 2RF acetaminophen-codeine 300-30 mg tablet 1 tab PO TID PRN (Reason: pain) Qty: 84 0RF lorazepam 0.5 mg tablet 0.5 mg PO TID PRN (Reason: anxiety) Qty: 56 3RF esomeprazole magnesium 40 mg capsule,delayed release(DR/EC) 40 mg PO BID Patient Comments: TK 1 C PO BID Discharge Instructions Instructions: Upper Respiratory Infection (ED) Additional Instructions: Continue to use albuterol at home as needed. Call your primary care doctor tomorrow to schedule an appointment to follow up on your visit here. Return to the emergency department for new or worsening symptoms including difficultly breathing, new/different/worse chest pain, fever, or if you have any other concerns. Referrals: Wallace Negron, CLINICAL CYTOGENETICIST SCIENTIST [Primary Care Provider] - Medical Decision Making 42yo F with hx of asthma, prediabetes, non-hodkin's lymphoma with no active treatment, presenting for cough x 1 week with associated constant mild substernal chest pain. Vital signs and physical exam reassuring, no fever, no increased work of breathing, lungs CTAB. No respiratory distress. Not septic. Low suspicion for acute coronary syndrome. PERC negative; would not further pursue pulmonary embolism. EKG NSR, appropriate intervals, no ST segment or T wave abnormalities to suggest occlusive [place]. CBC reassuring with no anemia, leukopenia, or leukocytosis. CMP with no actionable abnormalities. Troponin negative; in the setting of days of constant chest pain would not repeat. CXR independently reviewed, no pneumonia or pneumothorax, agree with radiolgoy read below. Given albuterol inhaler here for subjective shortness of breath; on re assessment reports symptoms improved. Advised symptomatic treatment at home for upper respiratory infection. Discharged home; discharge instructions including return precautions were reviewed with patient who verbalized understanding. All questions were answered and they are in full agreement with the plan. Imaging Data Radiologic Study: Imaging: X-Ray Radiologist's impression: IMPRESSION: No acute findings. Lab Data Lab results reviewed: Yes I reviewed the patient's lab results. Labs: Laboratory Tests Range/Units 12/12/22 12/12/22 13:12 13:12 WBC (4.4-10.8) 10^3/uL 7.57 RBC (3.93-5.22) 10^6/uL 4.63 Hgb (11.2-15.7) g/dL 13.4 Hct (36.0-46.0) % 40.7 MCV (80-95) fL 88 MCH (27.0-33.0) pg 28.9 MCHC (32.0-36.0) % 32.9 RDW (11.7-14.6) % 12.6 Plt Count (130-400) 10^3/uL 323 MPV (8.0-11.0) fL 9.8 Immature Gran % 0.1 Neutrophils % 60.3 Lymphocytes % 29.1 Monocytes % 7.9 Eosinophils % 1.8 Basophils % 0.8 Nucleated RBC % (0.0-0.3) % 0.0 Absolute Neutrophils (1.2-6.7) 10^3/uL 4.56 Absolute Lymphocytes (1.2-3.4) 10^3/uL 2.20 Absolute Monocytes (0.1-0.8) 10^3/uL 0.60 Absolute Eosinophils (0.0-0.7) 10^3/uL 0.14 Absolute Basophils (0.0-0.2) 10^3/uL 0.06 Sodium (136-145) mmol/L 140 Potassium (3.5-5.1) mmol/L 3.7 Chloride (98-107) mmol/L 103 Carbon Dioxide (21.0-32.0) mmol/L 26.9 Anion Gap (3-11) mmol/L 10.1 BUN (7-18) mg/dL 12 Creatinine (0.55-1.02) mg/dL 0.9 Est GFR (CKD-EPI 2020) (mL/min/1.73m2) 80.84 Glucose (74-106) mg/dL 102 Calcium (8.5-10.1) mg/dL 9.3 Total Bilirubin (0.2-1.0) mg/dL 0.4 AST (15-37) U/L 17 ALT (14-59) U/L 41 Alkaline Phosphatase (46-116) U/L 123 H Troponin I (<or=60) ng/L < 50 Total Protein (6.4-8.2) g/dL 7.2 Albumin (3.4-5.0) g/dL 3.8 HPI General Mode of arrival: ambulatory . Date/Time Provider Initiated Documentation: 12/12/22 12:58 . Limitations to Documentation: no limitations . Information obtained by: patient . HPI Narrative: 42yo F with hx of asthma, prediabetes, non-hodkin's lymphoma with no active treatment, presenting for cough x 1 week. Concerned she may have pneumonia which prompted presentation to the ED. She has had some shortness of breath, worse with exertion. No orthopnea. Mild constant substernal chest pain for the past 4 days, no alleviating or aggravating factors. No fevers. No pleuritic pain. SHe is otherwise in her usual state of health with no fevers, chills, rash, nausea, vomiting, abdominal pain, LE edema, palpations, presyncope, syncope, or other concerns. Related Data Home Medications Medication Instructions Recorded Confirmed esomeprazole magnesium 40 mg 40 mg PO BID 09/23/19 07/15/22 capsule,delayed release albuterol sulfate 90 mcg/actuation 1 puff inhalation ONCE PRN 02/12/22 07/15/22 aerosol inhaler bronchospasm #8.5 grams fluoxetine 20 mg capsule 40 mg PO DAILY #180 caps 03/30/22 07/15/22 metformin 500 mg tablet 500 mg PO BID #180 tabs 07/09/22 07/15/22 ciprofloxacin HCl 250 mg tablet 250 mg PO BID #6 tabs 09/18/22 09/18/22 phenazopyridine 100 mg tablet 100 mg PO TID PRN pain #6 tabs 05/13/23 05/13/23 (Pyridium) baclofen 20 mg tablet 20 mg PO TID #90 tabs 10/11/22 acetaminophen 300 mg-codeine 30 mg 1 tab PO TID PRN pain #84 tabs 11/29/22 tablet lorazepam 0.5 mg tablet 0.5 mg PO TID PRN anxiety #56 tabs 12/03/22 Previous Rx's Medication Instructions Recorded albuterol sulfate 90 mcg/actuation 1 puff inhalation ONCE PRN 02/12/22 aerosol inhaler bronchospasm #8.5 grams fluoxetine 20 mg capsule 40 mg PO DAILY #180 caps 03/30/22 metformin 500 mg tablet 500 mg PO BID #180 tabs 07/09/22 ciprofloxacin HCl 250 mg tablet 250 mg PO BID #6 tabs 09/18/22 phenazopyridine 100 mg tablet 100 mg PO TID PRN pain #6 tabs 09/18/22 (Pyridium) baclofen 20 mg tablet 20 mg PO TID #90 tabs 10/11/22 acetaminophen 300 mg-codeine 30 mg 1 tab PO TID PRN pain #84 tabs 11/29/22 tablet lorazepam 0.5 mg tablet 0.5 mg PO TID PRN anxiety #56 tabs 12/03/22 Allergies Allergy/AdvReac Type Severity Reaction Status Date / Time cephalexin monohydrate Allergy Severe Anaphylaxsi Verified 09/18/22 12:46 [From Keflex] s nitrofurantoin Allergy Severe Anaphylaxsi Verified 09/18/22 12:46 [From Macrobid] s Sulfa (Sulfonamide Allergy Severe Anaphylaxsi Verified 09/18/22 12:46 Antibiotics) s topiramate [From Topamax] Allergy Severe Anaphylaxsi Verified 09/18/22 12:46 s ibuprofen Allergy Mild Hives Verified 09/18/22 12:46 cefazolin Allergy Unknown Other (See Verified 09/18/22 12:46 Comment) celecoxib [From Celebrex] Allergy Unknown Hives Verified 09/18/22 12:46 duloxetine [From Cymbalta] Allergy Unknown Swelling/Ed Verified 09/18/22 12:46 bert naproxen Allergy Unknown Hives Verified 09/18/22 12:46 pregabalin [From Lyrica] Allergy Unknown Swelling/Edema, Verified 09/18/22 12:46 tongue swelling, angioedema tramadol Allergy Unknown Unverified 09/18/22 12:46 wheat Allergy Unknown Verified 09/18/22 12:46 gabapentin AdvReac Intermediate Heart Verified 09/18/22 12:46 Races, per pt General Stated Complaint: RespSymp NICOLE: 3 Review of Systems Narrative: see HPI PFSH All Active Problems (Updated 12/12/22 @ 14:28 by Marium Fairbanks MD) Upper respiratory infection (Acute) Hyperreflexia (Acute) Neuropathic pain (Acute) Asthma (Chronic) Incisional hernia of anterior abdominal wall without obstruction or gangrene (Acute) Anxiety with depression (Acute) Somatoform disorder (Acute) Unspecified disorder of eye movements (Acute) Learning disability (Acute) Chronic GERD (Acute) Hiatal hernia (Chronic) Carpal tunnel syndrome of right wrist (Acute) Chronic pain disorder (Chronic) Other specified polyneuropathies (Acute) 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) Increased body mass index (BMI) (Acute) Leg cramping (Acute) Firmness of abdomen (Acute) URI (upper respiratory infection) (Acute) Dysuria (Acute) Follicular lymphoma (Acute) COVID-19 (Acute) Medical History Dandy-Walker syndrome H/O migraine Hydrocephalus s/p PUBLIC HE[employer] NURSE shunting, revision at age 1 PCOS (polycystic ovarian syndrome) PTSD (post-traumatic stress disorder) Small bowel obstruction Type 2 diabetes mellitus without complications Verruca warts (infectious) Surgical History H/O esophagogastroduodenoscopy (~05/09/10) [facility] [place] History of placement of ear tubes S/P PUBLIC HEALTH NURSE shunt (~05/09/08) Last revision 2008 Family History Mother No problems noted. Father No problems noted. Maternal Grandfather No problems noted. Paternal Grandfather No problems noted. Maternal Grandmother No problems noted. Paternal Grandmother No problems noted. Social History Smoking/Tobacco Use Status: Never Second Hand Exposure: Yes Smoking risk assessment performed?: Yes Alcohol Intake: never Drug use: Never Substance use type: does not use Counseling given: No Counseling provided: none Household members: spouse Housing: other Pets and animals: Yes Pets and animals: cat(s) How often do you talk on the phone with friends or family?: three or more times per week How often do you get together with friends or relatives?: three or more times per week Do you belong to any clubs or organized social groups?: no Panel score (0-1 are the most socially isolated patients): 1 What type of physical activity do you participate in: none Do you feel safe at home: Yes Do you feel safe in your relationship?: Yes Exam Narrative Exam Narrative: General: Alert, well appearing, well nourished, in no acute distress. Head: Normocephalic, atraumatic Neck: Trachea midline, Neck supple. ENT: MMM. No oropharygeal lesions or exudate. Cardiac: RRR, no murmurs appreciated Resp: No respiratory distress. CTAB. Abd: Soft, non-distended, nontender : No suprapubic tenderness. Extremities: No deformities. No peripheral edema. Neurologic: GCS 15. Moves all extremities freely against gravity Course Vital Signs Vital signs: Vital Signs Temperature 36.6 C 12/12/22 12:24 Pulse 92 H 12/12/22 12:24 Respiratory Rate 18 12/12/22 12:24 Blood Pressure 132/92 H 12/12/22 12:24 Pulse Oximetry 99 12/12/22 12:24 Temperature 36.6 C 12/12/22 12:24 Temperature Source Tympanic 12/12/22 12:24 Pulse 92 H 12/12/22 12:24 Respiratory Rate 18 12/12/22 12:24 Respiratory Effort Normal 12/12/22 12:56 Respiratory Depth Normal 12/12/22 12:56 Blood Pressure 132/92 H 12/12/22 12:24 Blood Pressure Position Supine 12/12/22 12:24 Pulse Oximetry 99 12/12/22 12:24 Oxygen Delivery Method Room Air 12/12/22 12:24 Oxygen Flow Rate 0 12/12/22 12:24 Pain Level 0 12/12/22 12:24
[2022-12-12] MEDS: Albuterol HFA 8 GM 60 PUFF INH IH (13:18)
[2022-12-12 13:20] LABS: Abs Immature Grans 0.01 10^3/uL (0.0-0.06); Absolute Basophil Count 0.06 10^3/uL (0.0-0.2); Absolute Eosinophil Count 0.14 10^3/uL (0.0-0.7); Absolute Neutrophil Count 4.56 10^3/uL (1.2-6.7); Basophils % 0.8; Eosinophils % 1.8; HCT 40.7 % (36.0-46.0); HGB 13.4 g/dL (11.2-15.7); Immature Grans % 0.1; Lymphocytes % 29.1; MCH 28.9 pg (27.0-33.0); MCHC 32.9 % (32.0-36.0); MCV 88 fL (80-95); MPV 9.8 fL (8.0-11.0); Monocytes % 7.9; Neutrophils % 60.3; Platelet Count 323 10^3/uL (130-400); RBC 4.63 10^6/uL (3.93-5.22); RDW 12.6 % (11.7-14.6); RDW-SD 40.4 fL; WBC 7.57 10^3/uL (4.4-10.8)
[2022-12-12] MEDS: Inhaler, Assist Device 1 EACH MC (13:20)
[2022-12-12 13:40] LABS: ALT 41 U/L (14-59); AST 17 U/L (15-37); Albumin 3.8 g/dL (3.4-5.0); Alkaline Phosphatase 123 U/L (46-116); Anion Gap 10.1 mmol/L (3-11); BUN 12 mg/dL (7-18); Bilirubin, Total 0.4 mg/dL (0.2-1.0); CO2 26.9 mmol/L (21.0-32.0); CREATININE 0.9 mg/dL (0.55-1.02); Calcium 9.3 mg/dL (8.5-10.1); Chloride 103 mmol/L (98-107); Estimated GFR 80.84 (mL/min/1.73m2); Glucose 102 mg/dL (74-106); Potassium 3.7 mmol/L (3.5-5.1); Sodium 140 mmol/L (136-145); Total Protein 7.2 g/dL (6.4-8.2); Troponin I < 50 ng/L (<or=60)
--- NOTE | 2022-12-12 14:19 | DI.VRAD_ITS ---
PROCEDURE INFORMATION: Exam: XR Chest Exam date and time: 12/12/2022 2:09 PM Age: 42 years old Clinical indication: Other: Shortness of breath and cough TECHNIQUE: Imaging protocol: Radiologic exam of the chest. Views: 2 views. COMPARISON: CR XR PORTABLE CHEST AP 03/20/2022 3:39 PM FINDINGS: Lungs: Unremarkable. No consolidation. Pleural spaces: Unremarkable. No pleural effusion. No pneumothorax. Heart/Mediastinum: Unremarkable. No cardiomegaly. Bones/joints: Unremarkable. IMPRESSION: No acute findings. Dictated and Authenticated by: Guillermo Schwab MD. Ordering:RAMOS Causey MD
== END 2022-12-12 14:51 | disposition home or self-care (01) ==
PROVIDERS: Emergency Provider Student in an Organized Health Care Education/Training Program; PCP Nurse Practitioner Family
DX: J06.9 Acute upper respiratory infection, unspecified (principal); R06.02 Shortness of breath; R05.9 Cough, unspecified
CPT/HCPCS: 80053; 93005; 99284; 71046; 84484; 85025; 93010

== ENCOUNTER 2023-01-31 16:00 | Outpatient (REF) | payer MEDICARE, SELFPAY ==
[2023-01-31 21:22] LABS: Bilirubin Negative (Negative); Blood Trace-intact (Negative); Clarity Clear (Clear); Glucose Negative (Negative); Ketones Trace mg/dL (Negative); Leukocyte Esterase Negative (Negative); Nitrite Negative (Negative); Specific Gravity >= 1.030 (1.005-1.025); Urobilinogen 0.2 mg/dL (Up to 0.2); pH 5.5 (5-8)
[2023-01-31 21:43] LABS: Bacteria Rare HPF (Negative); C & S Indicated? No/Sq. Contamination; Crystals Few Calcium Oxalate HPF (Negative); Epithelial Cells Many HPF (Negative); Mucus Moderate (Negative); WBC 0-2 HPF (0-5)
== END 2023-01-31 16:01 | disposition home or self-care (01) ==
LOC: LBN 16:00
PROVIDERS: PCP Nurse Practitioner Family; Visit Provider Nurse Practitioner Family
DX: R30.0 Dysuria (principal); N39.0 Urinary tract infection, site not specified
CPT/HCPCS: 81003; 81015

== ENCOUNTER 2023-05-11 21:02 | Outpatient (REF) | payer OTHER, SELFPAY | END 2023-05-11 21:03 | disposition home or self-care (01) | LOC: NCHCN 21:02 | PROVIDERS: PCP Nurse Practitioner Family; Visit Provider Family Medicine | DX: N39.0 Urinary tract infection, site not specified (principal) | CPT/HCPCS: 87086 ==

== ENCOUNTER → 2023-05-17 02:00 | Outpatient (CLI) | payer OTHER, SELFPAY ==
--- NOTE | 2023-05-17 07:15 | DI.RAD_ITS ---
Exam(s) XR CHEST 2V PA LATERAL EXAM: XR CHEST 2V PA LATERAL CLINICAL HISTORY: cough for 1 month now,R05.9. TECHNIQUE: 2D digital imaging was performed. COMPARISON: CR,XR XR CHEST 2V PA LATERAL from 12/12/2022 FINDINGS: 2 views: Tenting of the right hemidiaphragm remains unchanged. Heart size is normal. The mediastinum is not widened. Lungs are clear. No infiltrates nor pleural effusions. IMPRESSION: No acute pulmonary findings. DATA REPOSITORY: RADIATION DOSE DELIVERED:
== END ==
PROVIDERS: PCP Nurse Practitioner Family; Visit Provider Nurse Practitioner Family
DX: R05.9 Cough, unspecified (principal)
CPT/HCPCS: 71046

== ENCOUNTER → 2023-07-15 00:44 | Outpatient (CLI) | payer OTHER, SELFPAY ==
--- NOTE | 2023-07-15 12:05 | DI.MAMMO_ITS ---
Exam(s) MAMMO SCREENING EXAM: MAMMO SCREENING CLINICAL HISTORY: screening,Z12.39,H/O FOLLICULAR LYMPHOMA TECHNIQUE: Bilateral full field digital CC and MLO mammographic images were obtained with 3D tomosyn thesis and utilizing computer aided detection (CAD). COMPARISON: There are no priors available for comparison. FINDINGS: Masses/Architectural Distortion: None seen. Microcalcifications: No suspicious pleomorphic-type are seen. Skin Thickening/Nipple Retraction: None. IMPRESSION: 1. No evidence for malignancy is seen at this time. 2. Unless there is more urgent need, screening mammography is recommended, as per [employer] guidelines. BI-RADS Category 1 - Negative Breast Density - Category B - Scattered areas of fibroglandular density Breast density category C or D implies that the patient has dense breast tissue. Dense breast tissue is very common and is not abnormal but dense breast tissue can make it harder to find cancer on a ma mmogram. Also, dense breast tissue may increase their breast cancer risk. This information about the result of the mammogram report was provided to the patient to raise their awareness. Use this report when you speak with the patient about their risks for breast cancer, which includes their family hist ory. At that time, you may recommend for more screening tests (Ultrasound or MRI) as they might be us eful based on their risk. A negative radiographic report should not delay biopsy if a dominant or clinically suspicious mass is present. Up to ten percent of cancers are not identified on mammography. A negative report may reinforce clinical impression. Adenosis and dense breasts may obscure an underlying neoplasm. False positive reports average 6 to 10%. Patient will receive a letter notifying them of these results.
== END ==
PROVIDERS: PCP Nurse Practitioner Family; Visit Provider Nurse Practitioner Family
DX: Z12.31 Encounter for screening mammogram for malignant neoplasm of breast (principal)
CPT/HCPCS: 77063; 77067

== ENCOUNTER → 2023-07-19 03:25 | Outpatient (CLI) | payer OTHER, SELFPAY ==
--- NOTE | 2023-07-19 | DI.CT_ITS ---
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 TECHNIQUE: Imaging Protocol: Axial computed tomography images with coronal and sagittal reformatted images were created and reviewed CONTRAST MATERIAL: Intravenous: Omnipaque 350 Contrast volume:100 ml Oral: Yes. Oral contrast was administered for bowel opacification. 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 Previously documented on CT scan of November 2008. Please note the entire brain is not included i n the field of view. There is a retention cyst in the floor of the right maxillary sinus, not associated with fluid level. The remainder of the paranasal sinuses are clear. Parotid and submandibular glands appear unremarkable. Nasopharynx unremarkable. Oropharynx unremark able. Hypopharynx unremarkable. Vocal cords unremarkable. Thyroid gland unremarkable. The common and internal carotid arteries exhibit a medial course but without significant stenosis. There are multiple small lymph nodes in both sides of the neck and sub platysmal region. There is no gross lymphadenopathy on either side of the neck nor within the supraclavicular regions. CHEST: LUNGS: No new infiltrates nor pleural effusions nor new ominous pulmonary nodules.. Mild increased m arkings in the lingular segment of the left lung are unchanged. No new findings in the trachea and m ainstem bronchi. No bronchiectasis. MEDIASTINUM: There is no hilar nor mediastinal adenopathy. There is no retrocrural adenopathy. Visu alized thyroid unremarkable.No axillary adenopathy. CARDIAC: Heart size is normal. There is no pericardial effusion.Caliber of the thoracic aorta is wit hin normal limits. OSSEOUS: No significant osseous lesions.. ABDOMEN: There is no ascites. Ventriculoperitoneal shunt distal tip is in the anterior right abdomen just bel ow the proximal transverse colon. No abnormal collection in this region. LIVER: There are no new significant focal hepatic lesions nor dilatation of intrahepatic ducts. GALLBLADDER/BILIARY: No obvious gallbladder pathology. CBD is not dilated. PANCREAS: No evidence of pancreatic mass nor dilatation of the pancreatic duct. SPLEEN: Spleen is not enlarged. There are no intrasplenic lesions. Splenic and portal veins are li nt. ADRENALS: There are no significant adrenal masses. KIDNEYS: No calculi nor hydronephrosis. No solid renal masses. No cysts evident. ABDOMINAL AORTA: Abdominal aorta is not enlarged. LYMPH NODES/MESENTERY: The previously described central mesenteric mass surrounding the superior mese nteric vessels is again noted and appears stable. No new additional mesenteric masses identified. T he significant amount of para-aortic adenopathy also appears relatively stable when compared to the s tudy of July 2022. ABDOMINAL WALL: No evidence of significant anterior abdominal wall nor inguinal hernia. No subcutane ous masses nor fluid collections. GI: No ischemic appearing bowel loops. No evidence of bowel obstruction air. No pneumatosis. PELVIS: LYMPH NODES: There is adenopathy around the aortic bifurcation and around the proximal iliac vessels which appears stable. No obturator adenopathy. No inguinal adenopathy. GI: No evidence of appendicitis.No evidence of sigmoid diverticulitis. URINARY BLADDER: No calculi nor masses evident REPRODUCTIVE: Uterus and adnexal regions appear age-appropriate. No free fluid in the cul-de-sac. OSSEOUS: No significant osseous lesions. IMPRESSION: 1. Compared to the prior CT scan of July 2022 the previously described mass at the root of the centr al mesentery appears relatively stable as does the amount of hkmvtyrsyqlwsjx-fyyz-tjunvm adenopathy. There are no new mesenteric masses. No splenomegaly. No ascites. 2. No new pulmonary findings nor pleural effusions nor intrathoracic adenopathy. 3. No axillary nor supraclavicular adenopathy 4. Small benign-appearing lymph nodes both sides the neck and sub platysmal. No gross lymphadenopath y in the neck. No other masses in the neck RADIATION DOSE DELIVERED: Total DLP DATA REPOSITORY: All CT scans at this facility are submitted to the National Radiology Data Registry (NRDR) Dose Index Registry (DIR) with the [employer] (ACR). RADIATION OPTIMIZATION: All CT scans at this facility use at least one of these dose optimization te chniques: automated exposure control; mA and/or kV adjustment per patient size (includes targeted exa ms where dose is matched to clinical indication); or iterative reconstruction.
[2023-07-19 09:11] LABS: HCT 40.9 % (36.0-46.0); MCH 28.4 pg (27.0-33.0); MCHC 31.8 % (32.0-36.0); MCV 89 fL (80-95); MPV 10.4 fL (8.0-11.0); Platelet Count 268 10^3/uL (130-400); RBC 4.58 10^6/uL (3.93-5.22); RDW 12.8 % (11.7-14.6); RDW-SD 42.2 fL; WBC 7.27 10^3/uL (4.4-10.8)
[2023-07-19] MEDS: Barium Sulfate 2% W/V-Creamy Vanilla Smoothie 450 ML BTL PO (09:14)
[2023-07-19 09:33] LABS: ALT 28 U/L (14-59); AST 11 U/L (15-37); Albumin 3.7 g/dL (3.4-5.0); Alkaline Phosphatase 111 U/L (46-116); Anion Gap 9.5 mmol/L (3-11); BUN 17 mg/dL (7-18); Bilirubin, Total 0.4 mg/dL (0.2-1.0); CO2 28.5 mmol/L (21.0-32.0); CREATININE 0.9 mg/dL (0.55-1.02); Calcium 9.3 mg/dL (8.5-10.1); Chloride 106 mmol/L (98-107); Estimated GFR 80.34 (mL/min/1.73m2); Glucose 102 mg/dL (74-106); LDH 159 U/L (81-234); Potassium 4.2 mmol/L (3.5-5.1); Sodium 144 mmol/L (136-145); Total Protein 7.4 g/dL (6.4-8.2)
[2023-07-19 09:41] LABS: Calculated LDL 163 mg/dL (<100); Cholesterol 235 mg/dL (<200); HDL Cholesterol 55 mg/dL (40-60); TSH (W/Ref FT4) 1.48 uIU/mL (0.36-3.74); Triglyceride 86 mg/dL (<150)
[2023-07-19] MEDS: Normal Saline - Diluent 50 ML VIAL IJ (11:07)
[2023-07-19] MEDS: Omnipaque 350 MG/ML 500 ML BTL-Imaging package IJ (11:08)
== END ==
PROVIDERS: Nurse Practitioner Family; PCP Nurse Practitioner Family; Visit Provider Internal Medicine Hematology & Oncology
DX: E78.5 Hyperlipidemia, unspecified (principal); Z00.00 Encounter for general adult medical examination without abnormal findings; E11.9 Type 2 diabetes mellitus without complications; F41.8 Other specified anxiety disorders; K21.9 Gastro-esophageal reflux disease without esophagitis; C82.01 Follicular lymphoma grade I, lymph nodes of head, face, and neck
CPT/HCPCS: 70491; 74177; 80048; 80053; 80061; 85027; 71260; 83615; 84443

== ENCOUNTER 2023-08-24 04:16 | Outpatient (CLI) | payer OTHER, SELFPAY ==
[2023-08-24 09:18] LABS: Abs Immature Grans 0.01 10^3/uL (0.0-0.06); Absolute Basophil Count 0.04 10^3/uL (0.0-0.2); Absolute Eosinophil Count 0.16 10^3/uL (0.0-0.7); Absolute Lymphocyte Count 1.55 10^3/uL (1.2-3.4); Absolute Monocyte Count 0.62 10^3/uL (0.1-0.8); Absolute Neutrophil Count 4.65 10^3/uL (1.2-6.7); Basophils % 0.6; Eosinophils % 2.3; HCT 41.1 % (36.0-46.0); HGB 13.2 g/dL (11.2-15.7); Immature Grans % 0.1; MCH 28.9 pg (27.0-33.0); MCHC 32.1 % (32.0-36.0); MCV 90 fL (80-95); MPV 10.1 fL (8.0-11.0); Monocytes % 8.8; Neutrophils % 66.2; Platelet Count 302 10^3/uL (130-400); RBC 4.56 10^6/uL (3.93-5.22); RDW 12.6 % (11.7-14.6); WBC 7.03 10^3/uL (4.4-10.8)
[2023-08-24 09:33] LABS: ALT 30 U/L (14-59); AST 11 U/L (15-37); Albumin 3.7 g/dL (3.4-5.0); Alkaline Phosphatase 136 U/L (46-116); Anion Gap 6.3 mmol/L (3-11); BUN 15 mg/dL (7-18); Bilirubin, Total 0.2 mg/dL (0.2-1.0); CO2 30.7 mmol/L (21.0-32.0); Calcium 9.2 mg/dL (8.5-10.1); Chloride 107 mmol/L (98-107); Glucose 77 mg/dL (74-106); LDH 149 U/L (81-234); Potassium 4.5 mmol/L (3.5-5.1); Sodium 144 mmol/L (136-145); Total Protein 7.2 g/dL (6.4-8.2)
== END 2023-08-24 04:17 | disposition home or self-care (01) ==
LOC: LBO 04:16
PROVIDERS: PCP Nurse Practitioner Family; Visit Provider Internal Medicine Hematology & Oncology
DX: E11.9 Type 2 diabetes mellitus without complications (principal)
CPT/HCPCS: 36415; 80048; 80053; 83615; 85025

== ENCOUNTER 2024-03-28 11:10 | Outpatient (CLI) | payer OTHER, SELFPAY ==
--- OUTSIDE RECORDS SUMMARY | 2024-03-28 11:12 | XMS_ITS | Encounter Summary ---
Author Organization [facility] Address [address] [place] [address] Care Team Providers Care Utility Locate Technician Name Role Phone Vivek Ohara DO Primary Care Provider [phone] Encounter Details Date Type Department Care Team (Late st Contact Info) Description 08/10/2016 Results Only [facility] [phone] Hebert Christine MD [address] [facility] [address] [place] [address] Social History Tobacco Use Types Packs/Day Years Used Date Smoking Tobacco: Never Smokeless Tobacco: Never Alcohol Use Standard Drinks/Week Comments No 0 (1 standard drink = 0.6 oz pur e alcohol) Comments Unknown Sex and Gender Information Value Date Recorded Sex Assigned at Not on file Legal Sex Female 17:25 EST Gender Identity Not on file Sexual Orientation Not on file documented as of this encounter Plan of Treatment Not on file documented as of this encounter Procedures Procedure Name Priority Date/Time Associated Diagnosis Comments SURGICAL PATHOLOGY Routine 08/10/2016 18 :59 EDT documented in this encounter Results * SURGICAL PATHOLOGY (08/10/2016 18:59 EDT) Pathology Report: SURGICAL PATHOLOGY REPORT Reports generated via electronic interface contain original data; however they are lacking the format of the original report. Caution should be taken when reading/interpreti ng unformatted reports. Name: ? RADHA CARRILLO ? Accession #: ? [id number] ? : ? 1980 (Age: 36) ??F ? Collect Date: ? 08/10/2016 ? Location: ? [facility] ? Receive Date: ? 08/11/2016 ? Provider: RADHA CHRISTINE MD Copy to: ? Final Pathologic Diagnosis: A. DUODENUM, 2ND PORTION, BIOPSY: - ??Duodenal mucosa with normal villous architecture and mildly increased intraepithelial lymphocytes. See comment. B. STOMACH, ANTRUM AND BODY, BIOPSY: - ??Gastric antral mucosa with marked reactive (chemical) gastropathy. - ??No histological evidence of H. pylori on H&E stain. C. STOMACH, FUNDAL POLYPS, BIOPSY: - ??Fundic gland polyps. D. ESOPHAGUS, DISTAL, BIOPSY: - ??Squamocolumnar junctional mucosa with features consistent with reflux esophagitis. - ??Negative for intestinal metaplasia or dysplasia. Comment: The presence of slightly increased intraepithelial lymphocytes is not specific; but correlation with clinical data and serologies is suggested to rule out celiac disease. Dr. Peterson 08/13/2016 9:13 AM Document reviewed and electronically signed by: INDRA PETERSON MD Report ??Date: 08/13/2016 09:51 By the signature above, the attending physician certifies that he/she has personally conducted a gross and/or microscopic examination of the described specimens and rendered or confirmed the above diagnosis. Specimen(s) Received: A. ??2nd portion of duodenum B. ??Gastric antrum and body C. ??Gastric fundal polyps D. ??Distal esophagus Clinical History: Dyspepsia; acid reflux; clinical diagnosis code: R10.13 Gross Description: A. ?Received in formalin labelled with proper patient identification (initials S, T) and 2nd portion of duodenum are five fragments of mariscal-pink tissue ranging from 0.2-0.3 cm in greatest dimension. The specimens are submitted entirely in A1 and A2. B. ?Received in formalin labelled with proper patient identification (initials S, T) and gastric antrum and body are two fragments of mariscal-brown tissue (each 0.4 x 0.2 x 0.1 cm). The specimens are submitted entirely in B1. C. ?Received in formalin labelled with proper patient identification (initials S, T) and gastric fundal polyps are two fragments of mariscal-brown tissue measuring 0.4 cm and 0.5 cm in greatest dimension. The specimens are submitted entirely in C1. D. ?Received in formalin labelled with proper patient identification (initials S, T) and distal esophagus is a single fragment of mariscal-pink tissue (0.3 x 0.2 x 0.2 cm). The specimen is submitted entirely in D1. BARRY Jim ([facility]) 08/12/2016 9:16 AM End of Report [facility] 08/10/2016 18:5 9 EDT 08/11/2016 18:59 EDT us Hebert Christine MD PATHOLOGY ORDERABLES Final Resul t [facility] [address] [place] [address] documented in this encounter Visit Diagnoses Not on filedocumented in this encounter Care Teams Utility Locate Technician Relationship Specialty Start Date End Date Vivek Ohara DO PCP - General 11/29/13 06/09/17 documented as of this encounter
--- OUTSIDE RECORDS SUMMARY | 2024-03-28 11:12 | XMS_ITS | Encounter Summary ---
Author Organization [facility] Address [address] [place] [address] Care Team Providers Care Cell Repairer Name Role Phone Vivek Ohara DO Primary Care Provider Reason for Visit * Reason Onset Date Comments Appointment Related 06/09/2017 Encounter Details Date Type Department Care Team (Late st Contact Info) Description 06/09/2017 Telephone [facility] Neurosurgery - [address] [phone] Ben Jama MD [address] [facility], [address] [place] [address] Appointment Related Social History Tobacco Use Types Packs/Day Years [...] on file documented as of this encounter Miscellaneous Notes * Telephone Encounter - Annelise Live - 06/09/2017 1625 EST Confirmed for patient with the following appointment details: Date:06/13/2017 Arrival time:12:45 Appt time:1PM Provider:JIGAR Location:EP5 Advised patient/family/spouse to contact our office with any questions. The phone number and directions to the clinic were provided. documented in this encounter Plan of Treatment Not on file documented as of this encounter Visit Diagnoses Not on filedocumented in this encounter Care Teams Cell Repairer Relationship Specialty Start Date End Date Vivek Ohara DO PCP - General 11/29/13 06/09/17 documented as of this encounter
--- OUTSIDE RECORDS SUMMARY | 2024-03-28 11:12 | XMS_ITS | Encounter Summary ---
Author Organization [facility] Address [address] [place] [address] Care Team Providers Care Scalemaker Name Role Phone Vivek Ohara Primary Care Provider [phone] Reason for Visit * Reason Onset Date Comments Appointment Related 05/24/2017 Encounter Details Date Type Department Care Team (Late st Contact Info) Description 05/24/2017 Telephone [facility] Neurosurgery - [facility] [address] [place], [place] [phone] Ben Jama MD [address] [facility], [address] [place] [address] Appointment Related Social History Tobacco [...] encounter Miscellaneous Notes * Telephone Encounter - Lisa Gustafson - 05/24/2017 0855 EST Left message for patient that there has been a change in Dr. Jama's schedule for tomorrow and her appointment has been changed to at 12:30 with Luisa Fontanez PA-C. documented in this encounter Plan of Treatment Not on file documented as of this encounter Visit Diagnoses Not on filedocumented in this encounter Care Teams Scalemaker Relationship Specialty Start Date End Date Vivek Ohara DO PCP - General 11/29/13 06/09/17 documented as of this encounter
--- OUTSIDE RECORDS SUMMARY | 2024-03-28 11:12 | XMS_ITS | Clinical Summary ---
Author Organization [facility] Address [address] [place] [address] Care Team Providers Care Mines Safety Engineer Name Role Phone Maury Ware Primary Care Provider [phone] Allergies Active Allergy Reactions Criticality Noted Date Comments Cephalexin Itching 11/30/2008 Duloxetine Hives 10/01/2010 Ibuprofen Itching,Nausea Only 11/30/2008 Nitrofurantoin Monohyd/M-Cryst Itching 12/01/2008 Nitrofurazone 11/30/2008 Rofecoxib 11/30/2008 Sulfa (Sulfonamide Antibiotics) Swelling 11/30/2008 Topiramate 11/30/2008 Increased HAs Vioxx 02/10/2010 Medications albuterol (PROVENTIL HFA, VENTOLIN HFA) 90 mcg/Actuation inhaler Inhale 2 Puffs as directed 3 times daily as needed for Wheezing. 8.5gm Active esomeprazole (NEXIUM) 20 mg capsule Take 40 mg by mouth 2 times daily. Active tramadol (ULTRAM) 50 mg tablet Take 50 mg by mouth every 8 hours as needed. 03/18/2010 Active promethazine (PHENERGAN) 25 mg tablet Take 25 mg by mouth as needed. 06/08/2010 Active metformin (GLUCOPHAGE) 500 mg tablet Take 500 mg by mouth 2 times daily. 06/08/2010 Active LORazepam (ATIVAN) 0.5 mg tablet Take 1 mg by mouth 3 times daily. Active acetaminophen-c odeine (TYLENOL-CODEIN E #3) 300-30 mg per tablet Take 1 Tab by mouth every 4 hours as needed for Pain. Active ranitidine (ZANTAC) 150 mg tablet Take 150 mg by mouth 2 times daily. Active BACLOFEN ORAL Take 25 mg by mouth as needed. Active FLUoxetine (PROZAC) 20 mg capsule Take 20 mg by mouth daily. 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 Resolved Problems Problem Noted Date Diagnosed Date Resolved Date Gastroesophageal reflux disease 11/30/2008 11/30/2008 Surgical History Surgery Date Site/Laterality Comments EYE SURGERY 1980 VENTRICULOPERITONEAL SHUNT 1979 initial in 1978; revision in 1980 and 2009 Medical History Medical History Date Comments Hydrocephalus ([facility]) shunt pl aced 1978 GERD (gastroesophageal reflux disease) Asthma Depression Ovarian cyst Ventral hernia 2 yrs Hydrocephalus in ([facility]) Family History Medical History Relation Comments *Other(comment) Father Currently age 58 y; emphysema *Other(comment) Mother Currently age 53 y; Protein C deficiency, GERD Relation Status Comments Father Alive Mother Alive Social History Tobacco Use Types Packs/Day Years Used Date Smoking Tobacco: Never Smokeless Tobacco: Never Alcohol Use Standard Drinks/Week Comments No 0 (1 standard drink = 0.6 oz pur e alcohol) Interpersonal Safety Answer Date Record ed Physically Hurt Never 12/10/2019 Verbally Threaten Not on file 12/10/2019 Comments Unknown Sex and Gender Information Value Date Recorded Sex Assigned at Not on file Legal Sex Female 17:25 EST Gender Identity Not on file Sexual Orientation Not on file Obstetrics History Last Filed Vital Signs Vital Sign Reading Time Taken Comments Blood Pressure 124/72 06/13/2017 1303 EST Pulse 76 06/13/2017 1303 EST Temperature 36.2 ??C (97.2 ??F) 08/04/2009 1438 EDT Respiratory Rate 16 06/13/2017 1303 EST Oxygen Saturation 100% 08/04/2009 1652 EDT Inhaled Oxygen Concentration - - Weight 73.9 kg (163 lb) 07/01/2010 1241 EST Height 157.5 cm (5' 2) 07/01/2010 1241 EST Body Mass Index 29.81 07/01/2010 1241 EST Plan of Treatment Health Maintenance Due Date Last Done Comments Hepatitis C Screen 1980 Hepatitis B Vaccine (1 of 3 - 19+ 3-dose series) 05/09 COVID-19 Vaccine ( season) 2024 Medical Devices Implanted Type Area Glove Presser Device Identifier Shelf Expiration Date Model / Serial / Lot Heater Helper Shunt-Stata Ii Valve 2008 Mri Cond 1.5/3t Description:GRINDER SET UP OPERATOR JIG shunt - Stata II valve, per prism Status post ventriculoperitoneal shunt Noted 12/31/2008 Strata valve set at 1.0 static magnetic field of 3.0 [place] or less ? ? Spatial Gradient of 720 G/cm or less ? ? Radio Frequency (RF) Samson with an average Specific Absorption Rate (JAYLENE) of 3 W/kg for 15 minutes.s [place] [address] MEDICARE Advance Directives For more information, please contact: [phone] * Full Code (Latest Code Status on File) Date Activated Date Inactivated Comments 01/01/2009 1:43 01/03/2009 16:58 * Full Code Date Activated Date Inactivated Comments 11/30/2008 22:43 12/02/2008 14:13 Care Teams Mines Safety Engineer Relationship Specialty Start Date End Date Maury Ware DO [address] [place] [id number] PCP - General 06/10/17
--- OUTSIDE RECORDS SUMMARY | 2024-03-28 11:12 | XMS_ITS | Encounter Summary ---
Author Organization [facility] Address [address] [place] [address] Care Team Providers Care Lapeler Name Role Phone Vivek Ohara Primary Care Provider [phone] Reason for Visit * Reason Onset Date Comments Appointment Related 05/24/2017 Encounter Details Date Type Department Care Team (Late st Contact Info) Description 05/24/2017 Telephone [facility] Neurosurgery - [address] [phone] Ben Jama MD [address] [facility], [address] [place] [address] Appointment Related Social History Tobacco [...] * Telephone Encounter - Annelise Live - 05/24/2017 1410 EST LM for patient/spouse/family with the following appointment details: Date:05/26/2017 Arrival time:12:15 Appt time:12:30 Provider:PILLO KIMBALL Location:[facility] Advised patient/family/spouse to contact our office with any questions. The phone number and directions to the clinic were provided. documented in this encounter Plan of Treatment Not on file documented as of this encounter Visit Diagnoses Not on filedocumented in this encounter Care Teams Lapeler Relationship Specialty Start Date End Date Vivek Ohara DO PCP - General 11/29/13 06/09/17 documented as of this encounter
--- OUTSIDE RECORDS SUMMARY | 2024-03-28 11:12 | XMS_ITS | Encounter Summary ---
Author Organization [facility] Address [address] [place] [address] Care Team Providers Care Lime Filter Operator Name Role Phone [place] Primary Care Provider [phone] Reason for Visit * Reason Onset Date Comments Discuss Test Results 11/30/201311/29 Follow-up 12/04/2013 CT Appointment Related 12/06/2013 Encounter Details Date Type Department Care Team (Late st Contact Info) Description 11/30/2013 Telephone [facility] Neurosurgery - [facility] [address] [place], [place] [phone] Luisa Fontanez PA-C [address] [facility] [address] [place] [address] Discuss Test Results (11/29); Follow-up (CT); Appointment Related Social History Tobacco Use Types [...] encounter Miscellaneous Notes * Telephone Encounter - Debbie Castle V. - 12/06/2013 0809 EDT Patient waiting for CT appointment to be made for her in [place]. * Telephone Encounter - Portia Menendez - 12/04/2013 1113 EDT Pt is calling back for date and time of CT to be scheduled in [place], [place]. * Telephone Encounter - Luisa Mckay PA-C - 11/30/2013 1024 EDT Xrays without evidence of shunt disruption. Returned call to patient to discuss results. She wishesto proceed with a head CT at [facility]. Will order. * Telephone Encounter - Sree David - 11/30/2013 0907 EDT Please call pt with results of 11/29 series. 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
--- OUTSIDE RECORDS SUMMARY | 2024-03-28 11:12 | XMS_ITS | Encounter Summary ---
Author Organization [facility] Address [address] [place] [address] Care Team Providers Care Box Puller Name Role Phone Maury Ware Primary Care Provider [phone] Reason for Referral * Radiology Services (Routine) - New Request Specialty Diagnoses / Procedures Referred By Mari perez Referred To Contact Diagnoses Hydrocephalus (HCC-CMS) Dandy Walker malformation (HCC-CMS) S/P DESIGN TEACHER shunt Procedures SHUNT SERIES Luisa Fontanez PA-C Phone: tel: fax: Referral ID Status Reason Start Date Expiration Date V isits Requested Visits Authorized [id number] New Request 06/13/2017 1 1 Reason for Visit * Reason Comments New Patient Visit shunt malfunction Encounter Details Date Type Department Care Team (Late st Contact Info) Description 06/13/2017 13:00 EST Office Visit [facility] Neurosurgery - [facility] [address], [place] [id number] Luisa Fontanez PA-C [address] [place] [address] [address] [place] [phone] Hydrocephalus (HCC-CMS) (Primary Dx); Dandy Walker malformation (CMS-HCC) (HCC-CMS); S/P DESIGN TEACHER shunt Discharge Disposition: Auto Discharge Social History Tobacco Use Types Packs/Day Years [...] on file documented as of this encounter Last Filed Vital Signs Vital Sign Reading Time Taken Comments Blood Pressure 124/72 06/13/2017 1303 EST Pulse 76 06/13/2017 1303 EST Temperature - - Respiratory Rate 16 06/13/2017 1303 EST Oxygen Saturation - - Inhaled Oxygen Concentration - - Weight - - Height - - Body Mass Index - - documented in this encounter Functional Status * Because of a physical, mental, or emotional condition, does this person have difficulty doing errands alone such as visiting a doctor's office or shopping? Answer Date of Assessment Author No 06/13/2017 13:03 EST documented as of this encounter Mental Status * Because of a physical, mental, or emotional condition, does this person have serious difficulty concentrating, remembering, or making decisions? 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 Peripheral neuropathy, hereditary/idiopathic 06/09/2010 ICD10 Update Auto Replacement ??? Status post ventriculoperitoneal shunt 12/31/2008 Strata valve set at 1.0 ??? 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 She was last seen in this office in November 2013. At that time she had transient right sided headaches which resolved. Nik presents to clinic today she reports an episode in May where she developed a significant headache for one week. She then noticed a tingling sensation on her scalp. She presented to her local [facility] where a head CT was done. She was recommended to follow up here because, as she understands it, the doctor there said I have too much fluid in my head. Currently she reports things have markedly improved. She no longer has that significant headache. She gets intermittent headaches but this is her baseline and she feels she is back to normal in that regard. She does still have some tingling on her scalp but this is not constant. Rahda denies nausea, vomiting, lethargy, gait/balance disturbances. Vision is normal. She is back atwork but at times feels overwhelmed with situations and conversations. O/ BP 124/72 Pulse 76 Resp 16 Alert and oriented Head normocephalic, atraumatic Shunt valve nontender [place] easily depressed Distal tubing palpable from valve to clavicle Shunt interrogated; setting of 1.[address] reveals stable ventricles and known Dandy Walker malformation. Images from May 2017 arestable in comparison to images from 2013 and 2008. Shunt series reveals stable catheter tubing and verifies shunt setting of 1.0. A/ Headaches in the setting of DESIGN TEACHER shunt, now resolved. Radha is no longer symptomatic from her headaches that occurred in May and feels she is back to her baseline. I do not have an explanation for her scalp tingling. Imaging reveals stable ventricles and shunt hardware. No neurosurgical intervention indicated at this time. P/ PRN neurosurgery f/u Vivek Ohara, thank you for the opportunity to participate in Radha's care. Please feel free to contact our office with any questions you may have. PILLO Cole A total of 30 minutes was spent in jvsy-jz-rlnn time of which 20 minutes were spent in counseling and coordination of care as described above, including discussion of treatment options regarding this serious medical problem. documented in this encounter Plan of Treatment Not on file documented as of this encounter Procedures Procedure Name Priority Date/Time Associated Diagnosis Comments SHUNT SERIES Routine 06/13/2017 14:26 EST Hydrocephalus (HCC-CMS) Dandy Walker malformation (CMS-HCC) (HCC-CMS) S/P DESIGN TEACHER shunt documented in this encounter Results * SHUNT SERIES (06/13/2017 14:26 EST) Anatomical Region Laterality Modality Other 06/13/2017 14:2 6 EST 06/13/2017 16:39 EST Narrative 06/13/2017 16:39 EST SHUNT SERIES ??06/13/2017 2:26 PM Clinical History/Comments: G91.9-Hydrocephalus, [id number]-39 Q03.1-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 Technique: PA and lateral views of the skull, PA view of the chest and AP and lateral views of the abdomen were obtained. Findings: A ventriculoperitoneal shunt is in place. The intracranial catheter enters via a left parietal brody hole. The tip is unchanged in position compared with the previous films. Shunt tubing extends down the right neck. It is not well visualized in the chest from about the level of the aortic arch to about the level of the base of the heart. The catheter enters the upper abdomen and coils within the pelvis just to the left of midline. There is disconnected shunt catheter tubing noted in the lower anterior chest wall extending for a short distance into the peritoneal cavity. Bowel gas pattern is unremarkable. 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 Technique: PA and lateral views of the skull, PA view of the chest and AP and lateral views of the abdomen were obtained. Findings: A ventriculoperitoneal shunt is in place. The intracranial catheter enters via a left parietal brody hole. The tip is unchanged in position compared with the previous films. Shunt tubing extends down the right neck. It is not well visualized in the chest from about the level of the aortic arch to about the level of the base of the heart. The catheter enters the upper abdomen and coils within the pelvis just to the left of midline. There is disconnected shunt catheter tubing noted in the lower anterior chest wall extending for a short distance into the peritoneal cavity. Bowel gas pattern is unremarkable. Luisa Fontanez PA-C IMG DIAGNOSTIC I MAGING ORDERABLES Final Result documented in this encounter Visit Diagnoses Diagnosis Hydrocephalus (HCC-CMS)- Primary Obstructive hydrocephalus Dandy Walker malformation (HCC-CMS) Congenital hydrocephalus S/P DESIGN TEACHER shunt Presence of cerebrospinal fluid drainage device documented in this encounter Historical Medications * This list may reflect changes made after this encounter. FLUoxetine (PROZAC) 20 mg capsule Take 20 mg by mouth daily. BACLOFEN ORAL Take 25 mg by mouth as needed. ranitidine (ZANTAC) 150 mg tablet Take 150 mg by mouth 2 times daily. acetaminophen-cod eine (TYLENOL-CODEINE #3) 300-30 mg per tablet Take 1 Tab by mouth every 4 hours as needed for Pain. added in this encounter Care Teams Box Puller Relationship Specialty Start Date End Date Maury Ware DO [address] [place] [address] PCP - General 06/10/17 documented as of this encounter
--- OUTSIDE RECORDS SUMMARY | 2024-03-28 11:12 | XMS_ITS | Encounter Summary ---
Author Organization [facility] Address [address] [place] [address] Care Team Providers Care Internet Developer Name Role Phone Kirk Siegel MD Primary Care Provider [phone] Encounter Details Date Type Department Care Team (Late st Contact Info) Description 05/18/2011 Results Only [facility]- [facility] [phone] Crissy Lewis MD [address] [place] [address] Social History Tobacco Use Types Packs/Day Years [...] Procedure Name Priority Date/Time Associated Diagnosis Comments PAP TEST- RESULT ONLY Routine 05/18/2011 0:00 EST documented in this encounter Results * PAP TEST- RESULT ONLY (05/18/2011 0:00 EST) Pathology Report: CYTOPATHOLOGY REPORT Reports generated via electronic interface contain original data; however they are lacking the format of the original report. Caution should be taken when reading/interpreti ng unformatted reports. Name: ? RADHA CARRILLO ? Accession #: ? [id number] ? : ? 1980 (Age: 31) ??F ?Collect Date: ? 05/18/2011 ? Location: ? [facility] ? Receive Date: ? 05/19/2011 ? Provider: CRISSY LEWIS MD Copy to: KIRK SIEGEL MD ? Final Report SPECIMEN ADEQUACY ? Satisfactory for Evaluation - transformation zone component present - scant squamous epithelial component secondary to excessive mucus GENERAL CATEGORIZATION ? Negative for Intraepithelial Lesion or Malignancy ?? Other: Additional clinical information: Paps on file wnl Specimen/Source: ??Pap Test, Cervix/Endocervix, ThinPrep Imaging System with manual evaluation Document reviewed and electronically signed by: ? REEMA Jolly(ASCP) ? Report ??Date: 05/21/2011 08:48 HPV with Pap Test ? Date Ordered: ? 05/21/2011 ? Status: ?? Signed Out ?Date Complete: ? 05/26/2011 ? By: ??System Interface ? Date Reported: ? 05/26/2011 ? Interpretation RESULT: Negative for HPV types 16, 18, 31, 33, 35, 39, 45, 51, 52, 56, 58, 59, and 68. Comments Document reviewed and electronically signed by: ? System Interface ? Report date: 05/26/2011 By the signature above, the attending physician certifies that he/she has personally conducted a gross and/or microscopic examination of the described specimens and rendered or confirmed the above diagnosis. End of Report [facility] 05/18/2011 05/19/2011 us Crissy Lewis MD PATHOLOGY ORDERABLES Final Resu lt [facility] [address] [place] [address] documented in this encounter Visit Diagnoses Not on filedocumented in this encounter Care Teams Internet Developer Relationship Specialty Start Date End Date Kirk Siegel MD [address] [place] [address] PCP - General 08/04/09 12/25/12 documented as of this encounter
--- OUTSIDE RECORDS SUMMARY | 2024-03-28 11:12 | XMS_ITS | Encounter Summary ---
Author Organization [facility] Address [address] [place] [address] Care Team Providers Care Anode Rebuilder Name Role Phone Maury Ware Primary Care Provider [phone] Encounter Details Date Type Department Care Team (Late st Contact Info) Description 06/13/2017 Results Only Imaging [facility]- [facility] [phone] Unknown, Provider, Social History Tobacco Use Types Packs/Day Years [...] on file documented as of this encounter Functional Status * Because of [...] 06/13/2017 13:03 EST documented in this encounter Plan of Treatment Pending Results Name Type Priority Associated Diagnoses Date /Time OUTSIDE CD - OTHER BODY Imaging 0 06/13/2017 13:48 EST OUTSIDE CD - OTHER CHEST Imaging 06/13/2017 13:48 EST OUTSIDE CD - OTHER NEURO Imaging 06/13/2017 13:48 EST OUTSIDE CD - CT NEURO Imaging 09/2017 13:48 EST documented as of this encounter Visit Diagnoses Not on filedocumented in this encounter Care Teams Anode Rebuilder Relationship Specialty Start Date End Date Maury Ware DO [address] [place] [address] PCP - General 06/10/17 documented as of this encounter
--- OUTSIDE RECORDS SUMMARY | 2024-03-28 11:12 | XMS_ITS | Encounter Summary ---
Author Organization [facility] Address [address] [place] [address] Care Team Providers Care Weapons System Instrument Mechanic Name Role Phone Amanda Siegel MD Primary Care Provider Encounter Details Date Type Department Care Team (Late st Contact Info) Description 03/02/2011 Documentation Visit [facility] Neurosurgery - [facility] [place] [address] [place] [address] Jurgen Parra MD Social History Tobacco Use Types Packs/Day Years [...] on file documented as of this encounter Progress Notes * Jurgen Parra - 03/02/20112026 EDT Pt had MRI head and neck done as scheduled as an outpatient. Neurosurgery called to evaluate Stratavalve setting. Last note by neurosurgery that indicated setting was in 03/2010 with a setting of 1.0. Strata valve checked an found to be set at 1.0 after MRI completed. Strata valve re-checked and confirmed to be at 1.0 Fidel 0739 documented in this encounter Plan of Treatment Not on file documented as of this encounter Visit Diagnoses Not on filedocumented in this encounter Care Teams Weapons System Instrument Mechanic Relationship Specialty Start Date End Date Amanda Siegel MD [address] [place] [address] PCP - General 08/04/09 12/25/12 documented as of this encounter
--- OUTSIDE RECORDS SUMMARY | 2024-03-28 11:12 | XMS_ITS | Encounter Summary ---
Author Organization [facility] Address [address] [place] [address] Care Team Providers Care Rv Repairer Name Role Phone Rain Scott NP Primary Care Provider Reason for Visit * Reason Onset Date Comments Appointment Related 11/23/2013 follow up fr om ER visit 11/13 Headache 11/26/2013 3 out of 10 Shunt 11/26/2013 Encounter Details Date Type Department Care Team (Late st Contact Info) Description 11/23/2013 Telephone [facility] Neurosurgery - [address] [address] Ben Jama MD [address] [facility], [address] [place] [address] Appointment Related (follow up from ER visit 11/13); Headache (3 out of 10); Shunt Social History Tobacco Use Types Packs/Day Years [...] encounter Miscellaneous Notes * Telephone Encounter - Jennifer Ramey - 11/27/2013 0808 EDT Spoke with patient. Scheduled to see Luisa Mckay 11/29/13 at 1:30 pm. * Telephone Encounter - Luisa Mckay PA-C - 11/26/2013 1525 EDT I will see her in clinic this week * Telephone Encounter - Portia Menendez - 11/26/2013 1107 EDT Pt is calling back, requests to see Dr. Jama this week if possible. Per pt she continues to have headaches, per pt it is 3 out of 10 now. * Telephone Encounter - Josie Andujar - 11/23/2013 0947 EDT Pt states she was seen at ER in [place] on 11/13 for migraine. States migraine has still not gone away, would like to schedule appt with Dr. Jama. Please call. documented in this encounter Plan of Treatment Not on file documented as of this encounter Visit Diagnoses Not on filedocumented in this encounter Care Teams Rv Repairer Relationship Specialty Start Date End Date Rain Scott NP [address] [place] [address] [address] [place] [address] PCP - General 12/26/12 11/28/13 documented as of this encounter
--- OUTSIDE RECORDS SUMMARY | 2024-03-28 11:12 | XMS_ITS | Encounter Summary ---
Author Organization [facility] Address [address] [place] [address] Care Team Providers Care Gravel Hauler Name Role Phone Amanda Siegel MD Primary Care Provider [phone] Encounter Details Date Type Department Care Team (Late st Contact Info) Description 04/10/2012 Results Only [facility] Laboratory Services - [facility] [place] [place] [address] [place] [phone] Kelechi Ponce MD [address] [place] [address] Social History Tobacco Use Types Packs/Day Years [...] Date/Time Associated Diagnosis Comments SURGICAL PATHOLOGY Routine 04/10/2012 0:00 EST documented in this encounter Results * SURGICAL PATHOLOGY (04/10/2012 0:00 EST) Pathology Report: SURGICAL PATHOLOGY REPORT Reports generated via electronic interface contain original data; however they are lacking the format of the original report. Caution should be taken when reading/interpreti ng unformatted reports. Name: ? RADHA CARRILLO ? Accession #: ? [id number] ? : ? 1980 (Age: 31) ??F ? Collect Date: ? 04/10/2012 ? Location: ? [facility] ? Receive Date: ? 04/10/2012 ? Provider: KELECHI PONCE MD Copy to: ALDAIR TOMPKINS [place]HALT SURFACE HEATER OPERATOR ? Final Pathologic Diagnosis: A. ?Stomach, antrum, biopsies: ?1. ??Antral-type mucosa with features of reactive gastropathy. ??See comment. ? 2. ??No Helicobacter pylori-like microorganisms identified on H&E-stained sections. ?? B. ?? Esophagus, 35 cm, biopsies: ? 1. ??Squamocolumnar junctional mucosa with mild chronic inflammation and reactive changes. ? 2. ??Negative for intestinal metaplasia. Comment: ? Specimen (A) includes antral-type mucosa with reactive foveolar hyperplasia, negligible inflammation, and no Helicobacter pylori. ??These changes suggest chemical type injury such as can be seen with non-steroidal anti-inflammatory drugs, alcohol, and bile reflux. ? Document reviewed and electronically signed by: ОЛЬГА GONZALEZ MD Report ??Date: 04/17/2012 12:22 By the signature above, the attending physician certifies that he/she has personally conducted a gross and/or microscopic examination of the described specimens and rendered or confirmed the above diagnosis. Specimen(s) Received: A. ?Gastric antrum B. ? Esophagus 35 cm Clinical History: ? GERD Gross Description: ? Received in formalin labelled Dobson, Radha and gastric antrum are two pink-mariscal irregular soft tissues, 0.4 x 0.2 x 0.2 cm and 0.4 x 0.3 x 0.2 cm. Submitted in toto as (A). Received in formalin labelled Nita, Radha and esophagus 35 cm are four pink-mariscal and mariscal-white irregular soft tissues ranging from 0.3 x 0.3 x 0.1 cm to 0.7 x 0.3 x 0.1 cm. ??Submitted in toto as (B1) and (B2). ??(Carlton Julio)/subhash End of Report [facility] 04/10/2012 04/10/2012 21: 25 EST us Kelechi Ponce MD PATHOLOGY ORDERABLES Final Result Performing Organization Address City/State/[facility] Co de Phone Number [facility] [address] [place] [address] documented in this encounter Visit Diagnoses Not on filedocumented in this encounter Care Teams Gravel Hauler Relationship Specialty Start Date End Date Amanda Siegel MD [address] [place] [address] PCP - General 08/04/09 12/25/12 documented as of this encounter
--- OUTSIDE RECORDS SUMMARY | 2024-03-28 11:12 | XMS_ITS | Encounter Summary ---
Author Organization [facility] Address [address] [place] [address] Care Team Providers Care Legal Recruiter Name Role Phone Oxford Vivek Primary Care Provider [phone] Reason for Referral * Radiology Services (Routine) - Closed Specialty Diagnoses / Procedures Referred By Mari perez Referred To Contact Diagnoses 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[facility]) Procedures SHUNT SERIES Luisa Fontanez PA-C Phone: tel: fax: Referral ID Status Reason Start Date Expiration Date Visits Re quested Visits Authorized [id number] Closed 11/29/2013 1 1 Reason for Visit * Reason Comments Headache ? Shunt Encounter Details Date Type Department Care Team (Latest Contact Info) Description 11/29/2013 13:30 EDT Office Visit [facility] Neurosurgery - [address] [id number] Luisa Fontanez PA-C [address] [facility], [address] [place] [phone] 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Primary Dx); Status post ventriculoperitoneal shunt Discharge Disposition: Auto Discharge Social History [...] Sign Reading Time Taken Comments Blood Pressure 135/90 11/29/2013 1330 EDT right arm Pulse 98 11/29/2013 1330 EDT regular Temperature - - Respiratory Rate 24 11/29/2013 1330 EDT Oxygen Saturation - - Inhaled Oxygen Concentration - - Weight - - Height - - Body Mass Index - - documented in this encounter Discharge Diagnoses Diagnosis 331.3 COMMUNICAT HYDROCEPHALUS[ICD-9-CM] V45.2 VENTRICULAR SHUNT STATUS[ICD-9-CM] documented in this encounter Discharge Disposition Disposition Code Departure Means Destination Auto Discharge documented in this encounter Progress Notes * Luisa Mckay PA-C - 11/29/2013 1356 EDT Neurosurgery Shunt Check Patient Active Problem List Diagnosis Date Noted ??? Unspecified hereditary and idiopathic peripheral neuropathy 06/09/2010 ??? Status post ventriculoperitoneal shunt 12/31/2008 Strata valve set at 1.0 ??? 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 There was no inciting or traumatic event. She denies any recent contact with magnets, metal detectors, or security screening systems/airports. The headaches are frontal and right sided, radiating toward her ear. She notes no change with position and describes the headaches as constant. She also describes a sensation of fluid running across her forehead. Balance seems unsteady to her. She denies any recent illness or sinus infection. No fevers. No visual changes. Does describe nausea for two weeks, poor appetite but no vomiting. Migraine medication has been adjusted without effect. She states tramadol and baclofen do not help.Her migraine history is left sided and her current headaches are right sided. O/ BP 135/90 Pulse 98 Resp 24 Alert and oriented Head normocephalic, atraumatic Shunt valve and tubing from brody hole to clavicle noted to be very tender, no redness, erythema noted No fluid collection about the valve. [place] easily depressed Shunt interrogated; setting of 1.0 verified without difficulty A/ 33 y.o. 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 She is neurologically intact but does report some nausea. She was last seenone year ago with nearly identical symptoms, shunt workup was negative at that time and she reportsher headaches did gradually resolve. Given no change in shunt setting upon interrogation today, will obtain shunt plain films today to rule out disconnection. If films normal, will proceed with head CT at [facility]. She is in agreement with this plan. P/ Shunt series today Telephone f/u Rain Scott NP thank you for the opportunity to participate in Radha's care. Please feel free to contact our office with any questions you may have. Luisa Mckay, PAC documented in this encounter Plan of Treatment Not on file documented as of this encounter Procedures Procedure Name Priority Date/Time Associated Diagnosis Comments ORDERS - SCANNED 12/19/2013 14:1 7 EDT SHUNT SERIES Routine 11/29/2013 14:17 EDT Communicating hydrocephalus documented in this encounter Results * ORDERS - SCANNED (12/19/2013 14:17 EDT) 12/19/2013 14:1 7 EDT us Scan 2 Brick Shader ADMISSION ORDERABLES Final Result * SHUNT SERIES (11/29/2013 14:17 EDT) Anatomical Region Laterality Modality Other 11/29/2013 14:1 7 EDT 11/29/2013 16:49 EDT Narrative 11/29/2013 16:49 EDT SHUNT SERIES ??11/29/2013 2:17 PM Signs and Symptoms/Comments: 331.3-Communicating [id number]; progressive headache s/p JANITOR shunt Comparison December 27, 2012. AP, lateral skull, AP chest, AP and lateral abdomen. 2 views of the skull reveal no change in the appearance of the shunt. Portion of the shunt between the valve and the tube in the neck is less well demonstrated on this exam, of indeterminate significance. The tube overlying the chest is difficult to see due to overlapping structures. Deformity of the right diaphragm may be an eventration, also seen on the December 2012 chest. No gross abnormality of the heart and lungs. Tubing is better seen in the abdomen. The tip of this remains in the right pelvis, not clearly changed in position. This is of indeterminate significance but this may be stuck in place. There is no apparent soft tissue collection around the tip of this. In the upper abdomen there is a second larger tube which is not well seen on the AP chest film. The nature of this larger tube is indeterminate although it is seen and grossly unchanged in position on the December 2012 exam. The lateral views of the abdomen reveal the larger tube similar in appearance and location. The thinner tube is less well seen but also appears to be unchanged in position. No gross abnormalities of the spine or abdomen is seen. Impression: Somewhat more prominent tube in the upper abdomen is unchanged in position in the abdomen but not clearly the tube extending superiorly. The less radiopaque tube is difficult to see but there is no definite break in this tube or disconnection from the valve. However, the position of this is unchanged in the right pelvis and this may be stuck in place. Procedure Note 11/29/2013 SHUNT SERIES 11/29/2013 2:17 PM Signs and Symptoms/Comments: 331.3-Communicating [id number]; progressive headache s/p JANITOR shunt Comparison December 27, 2012. AP, lateral skull, AP chest, AP and lateral abdomen. 2 views of the skull reveal no change in the appearance of the shunt. Portion of the shunt between the valve and the tube in the neck is less well demonstrated on this exam, of indeterminate significance. The tube overlying the chest is difficult to see due to overlapping structures. Deformity of the right diaphragm may be an eventration, also seen on the December 2012 chest. No gross abnormality of the heart and lungs. Tubing is better seen in the abdomen. The tip of this remains in the right pelvis, not clearly changed in position. This is of indeterminate significance but this may be stuck in place. There is no apparent soft tissue collection around the tip of this. In the upper abdomen there is a second larger tube which is not well seen on the AP chest film. The nature of this larger tube is indeterminate although it is seen and grossly unchanged in position on the December 2012 exam. The lateral views of the abdomen reveal the larger tube similar in appearance and location. The thinner tube is less well seen but also appears to be unchanged in position. No gross abnormalities of the spine or abdomen is seen. Impression: Somewhat more prominent tube in the upper abdomen is unchanged in position in the abdomen but not clearly the tube extending superiorly. The less radiopaque tube is difficult to see but there is no definite break in this tube or disconnection from the valve. However, the position of this is unchanged in the right pelvis and this may be stuck in place. Luisa Fontanez PA-C IMDaniel DIAGNOSTIC I MAGING ORDERABLES Final Result documented in this encounter Visit Diagnoses Diagnosis 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HCC-CMS)- Primary Communicating hydrocephalus Status post ventriculoperitoneal shunt Presence of cerebrospinal fluid drainage device documented in this encounter Care Teams Legal Recruiter Relationship Specialty Start Date End Date Vivek Ohara DO PCP - General 11/29/13 06/09/17 documented as of this encounter
--- OUTSIDE RECORDS SUMMARY | 2024-03-28 11:12 | XMS_ITS | Encounter Summary ---
Author Organization [facility] Address [address] [place] [address] Care Team Providers Care Dry Goods Inspector Name Role Phone Maury Ware Primary Care Provider [phone] Encounter Details Date Type Department Care Team (Late st Contact Info) Description 07/08/2020 Lab Requisition [facility] Pathology & Laboratory Medicine - [facility] [address] [place] [address] Elizabeth Cook, COFOUNDER [address] [place] [phone] Encounter for other general examination Social History Tobacco Use Types Packs/Day Years [...] Name Priority Date/Time Associated Diagnosis Comments PAP TEST Today 07/07/2020 9:20 EST Encounter for other general examination HPV DNA DETECTION WITH GENOTYPING, PCR Today 07/07/2020 9:20 EST Encounter for other general examination documented in this encounter Results * HUMAN PAPILLOMAVIRUS (HPV) DETECTION-HIGH RISK TYPES (07/07/2020 9:20 EST) HPV other High Risk types, PCR Negative Negative 07/18/2020 9:10 EST [facility] Comment:No E6 or E7 mRNA is detected from HPV types 16,18,31,33,35,39,45,51,52,56,58,59,66, and 68 by defence intelligence analyst mediated amplification. Papanicolaou smear specimen (specimen) CERVIX UTERI STRUCTURE / Unknown 07/07/2020 9:20 EST 07/15/2020 10:40 EST us Elizabeth Cook NP MICROBIOLOGY - GENERAL ORDERAB LES Final Result [facility] [address] [place] [address] * PAP TEST (07/07/2020 9:20 EST) Specimens A. Cervix and/or Endocervix , ThinPrep Imaging System with Manual Evaluation 07/18/2020 9:10 EST [facility] Specimen Adequacy Satisfactory for Evaluation - transformation zone component present 07/18/2020 9:10 EST [facility] General Categorization Negative for intraepithelial lesion or malignancy 07/18/2020 9:10 [facility] Attestation . 07/18/2020 9:10 [facility] at 0910 Clinical History See below 07/19/19 9:10 EST [facility] HPV The result for the Human Papillomavirus (HPV) Detection-High Risk Types is Negative. No E6 or E7 mRNA is detected from HPV types 16,18,31,33,35,39 ,45,51,52,56,58,5 9,66, and 68 by defence intelligence analyst mediated amplification.Augusta ting was performed on specimen [id number] and was resulted on 07/18/2020 0909 EST by BRANDON, LAB INSTRUMENT RESULTS IN 07/18/2020 9:10 EST [facility] Performing Lab [facility] 07/18/2020 9:10 EST [facility] Scanned Images 07/18/2020 9:10 EST [facility] Papanicolaou smear specimen (specimen) CERVIX UTERI STRUCTURE / Unknown 07/07/2020 9:20 EST 07/08/2020 10:51 EST us Elizabeth Cook NP PATHOLOGY ORDERABLES Final Res ult [facility] [address] [place] [address] documented in this encounter Visit Diagnoses Diagnosis Encounter for other general examination documented in this encounter Care Teams Dry Goods Inspector Relationship Specialty Start Date End Date Maury Ware DO [address] [place] [address] PCP - General 06/10/17 documented as of this encounter
--- OUTSIDE RECORDS SUMMARY | 2024-03-28 11:12 | XMS_ITS | Encounter Summary ---
Author Organization [facility] Address [address] [place] [address] Care Team Providers Care Stream Control Officer Name Role Phone Rain Scott NP Primary Care Provider [phone] Reason for Visit * Reason Onset Date Comments Results 01/12/2013 Encounter Details Date Type Department Care Team (Late st Contact Info) Description 01/12/2013 Telephone [facility] Neurosurgery - [facility] [address] [place], [place] [phone] Luisa Fontanez PA-C [address] [facility] [address] [place] [address] Results Social History Tobacco Use Types Packs/Day Years [...] * Telephone Encounter - Jennifer Ramey - 01/12/2013 3264 EDT Spoke with Radha and informed her (per Luisa) that her head CT done at [facility] was stable and that most likely her headaches were caused by something other than her shunt not functioning properly. documented in this encounter Plan of Treatment Not on file documented as of this encounter Visit Diagnoses Not on filedocumented in this encounter Care Teams Stream Control Officer Relationship Specialty Start Date End Date Rain Scott NP [address] [place] [address] [address] [place] [phone] PCP - General 12/26/12 11/28/13 documented as of this encounter
--- OUTSIDE RECORDS SUMMARY | 2024-03-28 11:12 | XMS_ITS | Encounter Summary ---
Author Organization [facility] Address [address] [place] [address] Care Team Providers Care Journey Lineman Name Role Phone Maury Ware Primary Care Provider [phone] Encounter Details Date Type Department Care Team (Late st Contact Info) Description 09/26/2021 Lab Requisition [facility] Pathology & Laboratory Medicine - [address] [address] Outr Resulting Lab, Provider Social History Tobacco Use Types Packs/Day Years [...] Procedure Name Priority Date/Time Associated Diagnosis Comments ZZCOVID-19 TEST [facility] PCR Today 09/25/2021 13:00 EDT COVID-19 TESTING Routine 09/25/2021 13:0 0 EDT documented in this encounter Results * COVID-19 TEST [facility] PCR (09/25/2021 13:00 EDT) Swab 09/25/2021 13:0 0 EDT 09/26/2021 21:53 EDT us Provider Outr Resulting Lab MICROBIOLOGY - GENER AL ORDERABLES Final Result [facility] [address] [place] [address] * COVID-19 TESTING (09/25/2021 13:00 EDT) COVID-19 rt-PCR Result Negative Negative 09/27/2021 14:29 EDT [facility] Comment: This test has not been FDA cleared or approved. This test has been authorized by FDA under an EUA for use by authorized laboratories. This test has been authorized only for detection of nucleic acid from 2019-nCoV, not for any other viruses or pathogens. This test is only authorized for the duration of the declaration that circumstances exist justifying the authorization of emergency use of in vitro diagnostic tests for detection and/or diagnosis of 2019-nCoV under section 564(b)(1) of Act, 21 U.S.C ?? 360bbb-3(b) (1), unless the authorization is terminated or revoked sooner. Negative results do not preclude 2019-nCoV infection and should not be used as the sole basis for treatment or other patient management decisions. Negative results must be combined with clinical observations, patient history, and epidemiological information. Testing was performed using the dada SARS-CoV-2 assay ([employer] on the Dada 6800 System Performing Lab Dada 6800 [facility] 09/27/2021 14:29 EDT [facility] Swab 09/25/2021 13:0 0 EDT 09/26/2021 21:53 EDT us Provider Outr Resulting Lab MICROBIOLOGY - GENER AL ORDERABLES Final Result [facility] [address] [place] [address] documented in this encounter Visit Diagnoses Not on filedocumented in this encounter Care Teams Journey Lineman Relationship Specialty Start Date End Date Maury Ware DO [address] [place] [address] PCP - General 06/10/17 documented as of this encounter
--- OUTSIDE RECORDS SUMMARY | 2024-03-28 11:12 | XMS_ITS | Encounter Summary ---
Author Organization [facility] Address [address] [place] [address] Care Team Providers Care Dog Handler Or Trainer Name Role Phone Maury Ware Primary Care Provider [phone] Encounter Details Date Type Department Care Team (Late st Contact Info) Description 10/27/2022 Lab Requisition [facility] Pathology [place] [address] Outr Resulting Lab, Provider Social History Tobacco [...] Procedure Name Priority Date/Time Associated Diagnosis Comments PROTEIN C ACTIVITY Routine 10/27/2022 7:36 EDT documented in this encounter Results * PROTEIN C ACTIVITY (10/27/2022 7:36 EDT) Protein C Clot >150 71 - 199 % 11/03/2022 12:22 EDT [facility] Comment: a. Acquired Protein C deficiencies are associated with vitamin K antagonists, acute thrombotic events, vitamin K deficiency, liver disease and DIC. b. Results may be affected by plasma heparin levels greater than 1.5 U/mL for UFH and 0.8 for LMWH. c. Results may be overestimated in the presence of direct Xa inhibitors (rivaroxaban, apixaban, edoxaban) and direct thrombin inhibitors (dabigatran, argatroban, bivalirudin). d. Acute illness and/or thrombosis may influence test results in an unpredictable manner; therefore, results should be interpreted with caution in this setting. Blood VENOUS BLOOD / Unknown 10/27/2022 7:36 EDT 10/27/2022 16:58 EDT us Provider Outr Resulting Lab HEMATOLOGY & PF4 ORD ERABLES Final Result [facility] [address] [place] [address] documented in this encounter Visit Diagnoses Not on filedocumented in this encounter Care Teams Dog Handler Or Trainer Relationship Specialty Start Date End Date Maury Ware DO [address] [place] [address] PCP - General 06/10/17 documented as of this encounter
--- OUTSIDE RECORDS SUMMARY | 2024-03-28 11:12 | XMS_ITS | Encounter Summary ---
Author Organization [facility] Address [address] [place] [address] Care Team Providers Care Extension Specialist Name Role Phone Amanda Siegel MD Primary Care Provider [phone] Encounter Details Date Type Department Care Team (Late st Contact Info) Description 03/02/2011 10:59 EDT - 03/02/2011 23:59 EDT Hospital Encounter [address] [address] Amina Medina MD [address] [place] [address] Discharge Disposition: Auto Discharge Social History Tobacco [...] on file documented as of this encounter Medications at Time of Discharge albuterol (PROVENTIL HFA, VENTOLIN HFA) 90 mcg/Actuation inhaler Inhale 2 Puffs as directed 3 times daily as needed for Wheezing. 8.5gm esomeprazole (NEXIUM) 20 mg capsule Take 40 mg by mouth 2 times daily. metformin (GLUCOPHAGE) 500 mg tablet Take 500 mg by mouth 2 times daily. 06/08/2010 promethazine (PHENERGAN) 25 mg tablet Take 25 mg by mouth as needed. 06/08/2010 tramadol (ULTRAM) 50 mg tablet Take 50 mg by mouth every 8 hours as needed. 03/18/2010 clonAZEPAM (KLONOPIN) 0.5 mg tablet Take 0.5 mg by mouth 2 times daily. 03/18/2010 3 levetiracetam (KEPPRA) 500 mg tablet Take 1.5 Tabs by mouth 2 times daily. RX increased 90 Tab 3 08/12/2010 3 Multivitamins with Minerals Tab Take 1 Tab by mouth daily. 3 documented as of this encounter Discharge Disposition Disposition Code Departure Means Destination Auto Discharge Home documented in this encounter Plan of Treatment Not on file documented as of this encounter Visit Diagnoses Not on filedocumented in this encounter Care Teams Extension Specialist Relationship Specialty Start Date End Date Amanda Siegel MD [address] [place] [address] PCP - General 08/04/09 12/25/12 documented as of this encounter
--- OUTSIDE RECORDS SUMMARY | 2024-03-28 11:12 | XMS_ITS | Encounter Summary ---
Author Organization [facility] Address [address] [place] [address] Care Team Providers Care Multiple Tube Winding Machine Operator Name Role Phone De Tour VillageVivek hassan DO Primary Care Provider [phone] Reason for Visit * Reason Onset Date Comments Results 12/12/[address] scan done in [place] Encounter Details Date Type Department Care Team (Late st Contact Info) Description 12/12/2013 Telephone [facility] Neurosurgery - [facility] [address] [place], [place] [phone] Luisa Fontanez PA-C [address] [facility], [address] [place] [address] Results (Today's CT scan done in [place]) Social History Tobacco Use Types Packs/Day Years [...] encounter Miscellaneous Notes * Telephone Encounter - Chantelle Rico RN - 12/12/2013 4032 EDT Spoke to Radiology over at [facility] and they will push the film over to our Prism system now regarding the Head CT scan. Patient aware that she will most likely get a call tomorrow regarding the results after reviewed byBARRY Hoff or Dr. Jama. * Telephone Encounter - Janeth Looney - 12/12/2013 1526 EDT Pt asking for the results of her CT scan which was done this morning at [facility]. Please call to discuss. documented in this encounter Plan of Treatment Not on file documented as of this encounter Visit Diagnoses Not on filedocumented in this encounter Care Teams Multiple Tube Winding Machine Operator Relationship Specialty Start Date End Date iVvek Ohara DO PCP - General 11/29/13 06/09/17 documented as of this encounter
--- OUTSIDE RECORDS SUMMARY | 2024-03-28 11:12 | XMS_ITS | Encounter Summary ---
Author Organization [facility] Address [address] [place] [address] Care Team Providers Care Catalogue Maker Name Role Phone Amanda Siegel MD Primary Care Provider [phone] Reason for Visit * Reason Onset Date Comments Shunt 12/18/2012 Encounter Details Date Type Department Care Team (Late st Contact Info) Description 12/18/2012 Telephone [facility] Neurosurgery - [address] [phone] Ben Jama MD [address] [facility], [address] [place] [address] Shunt Social History Tobacco Use Types Packs/Day [...] * Telephone Encounter - Jennifer Ramey - 12/18/2012 1400 EDT Offered patient appt to see Luisa Mckay on 12/27/12, check in at 10:30 am for shunt series and then see Luisa at 11:15 am. Patient accepted this appt. * Telephone Encounter - Luisa Mckay PA-C - 12/18/2012 1126 EDT We should probably bring her in, hard to get a sense of what is going on with those symptoms. She can have shunt plain films prior. * Telephone Encounter - Maria Elena Plunkett RN - 12/18/2012 1039 EDT Patient was evaluated at local ED in [facility] for headache complaint and seeing colors. She wastold it was anxiety related. She had no imaging in the ED. She is somewhat vague about her symptomsand reports feeling disconnected and funny. Her headache pattern is different. She has experienced colors in her visual field, but denied flashes or floaters. She described her gait as staggering. She has not been sleeping well. Duration of symptoms 1 1/2 weeks. Phone kept cutting out during conversation. Network Support Engineer will discuss with Luisa Mckay. She was most recently evaluated by Dr Jama 03/2010. Shunt revision 01/2010, but Dr Jama documented some sort of malfunction 01/2010. * Telephone Encounter - Debbie Castle V. - 12/18/2012 0857 EDT Pt states that last week she saw flashes. Per patient, she feels odd. documented in this encounter Plan of Treatment Not on file documented as of this encounter Visit Diagnoses Not on filedocumented in this encounter Care Teams Catalogue Maker Relationship Specialty Start Date End Date Amanda Siegel MD [address] [address] PCP - General 08/04/09 12/25/12 documented as of this encounter
--- OUTSIDE RECORDS SUMMARY | 2024-03-28 11:12 | XMS_ITS | Referral Summary ---
Author Organization [facility] Address [address] [place] [address] Care Team Providers Care Waste And Batting Waste Chopper Name Role Phone Maury Ware Primary Care Provider [phone] Allergies Active Allergy Reactions Criticality Noted Date [...] Resolved Date Gastroesophageal reflux disease 11/30/2008 11/30/2008 Social History Tobacco Use Types Packs/Day Years [...] on file Sexual Orientation Not on file Last Filed Vital Signs Vital Sign Reading [...] Body Mass Index 29.81 07/01/2010 1241 EST Functional Status * Because of a physical, mental, or emotional condition, does this person have difficulty doing errands alone such as visiting a doctor's office or shopping? Answer Date of Assessment Author No 06/13/2017 13:03 EST Mental Status * Because of a physical, mental, or emotional condition, does this person have serious difficulty concentrating, remembering, or making decisions? Answer Entry Date Author No 06/13/2017 13:03 EST Plan of Treatment Not on file Medical Devices Implanted Type Area Air Traffic Control Operator Device Identifier Shelf Expiration Date Model / Serial / Lot Pan Devulcanizer Helper Shunt-Stata Ii Valve 2008 Mri Cond 1.5/3t Description:TENNIS BALL COVER CEMENTER shunt - Stata II valve, per prism Status post ventriculoperitoneal shunt Noted 12/31/2008 Strata valve set at 1.0 static magnetic field of 3.0 Lucero or less ? ? Spatial Gradient of 720 G/cm or less ? ? Radio Frequency (RF) Samson with an average Specific Absorption Rate (JAYLENE) of 3 W/kg for 15 minutes.s Insurance [employer] MEDICARE Advance Directives For more information, please contact: [phone] * Full Code (Latest Code Status on File) Date Activated Date Inactivated Comments 01/01/2009 1:43 01/03/2009 16:58 * Full Code Date Activated Date Inactivated Comments 11/30/2008 22:43 12/02/2008 14:13 Care Teams Waste And Batting Waste Chopper Relationship Specialty Start Date End Date Maury Ware DO [address] [place] [address] PCP - General 06/10/17
--- OUTSIDE RECORDS SUMMARY | 2024-03-28 11:12 | XMS_ITS | Encounter Summary ---
Author Organization [facility] Address [address] [place] [address] Care Team Providers Care Hosiery Mater Name Role Phone Rain Scott NP Primary Care Provider [phone] Encounter Details Date Type Department Care Team (Late st Contact Info) Description 12/27/2012 11:21 EDT - 12/27/2012 23:59 EDT Hospital Encounter [facility] [address] [place] [address] Luisa Fontanez PA-C [address] [facility] [address] [place] [phone] Discharge Disposition: Auto Discharge Social History Tobacco [...] 40 mg by mouth 2 times daily. LORazepam (ATIVAN) 0.5 mg tablet Take 1 mg by mouth 3 times daily. metformin (GLUCOPHAGE) 500 mg tablet Take 500 mg by mouth 2 times daily. 06/08/2010 promethazine (PHENERGAN) 25 mg tablet Take 25 mg by mouth as needed. 06/08/2010 tramadol (ULTRAM) 50 mg tablet Take 50 mg by mouth every 8 hours as needed. 03/18/2010 documented as of this encounter Discharge Disposition Disposition Code Departure Means Destination Auto Discharge Home documented in this encounter Plan of Treatment Pending Results Name Type Priority Associated Diagnoses Date /Time OUTSIDE IMAGES - CT NEURO Imaging 01/04/2013 16:21 EDT OUTSIDE IMAGES - CT NEURO Imaging 12/12/2013 16:13 EDT Scheduled Orders Name Type Priority Associated Diagnoses Orde r Schedule OUTSIDE IMAGES - CT NEURO Imaging For medications that can be administered at any time during the hospitalization for visit such as immunizations. for 1 Occurrences starting 01/04/2013 OUTSIDE IMAGES - CT NEURO Imaging One Time for 1 O ccurrences starting 12/12/2013 until 12/12/2013 documented as of this encounter Visit Diagnoses Not on filedocumented in this encounter Care Teams Hosiery Mater Relationship Specialty Start Date End Date Rain Scott NP [address] [place] [address] [address] [place] [address] PCP - General 12/26/12 11/28/13 documented as of this encounter
--- OUTSIDE RECORDS SUMMARY | 2024-03-28 11:12 | XMS_ITS | Encounter Summary ---
Author Organization [facility] Address [address] [place] [address] Care Team Providers Care Spin Table Operator Name Role Phone Rain Scott NP Primary Care Provider [phone] Reason for Referral * Radiology Services (Routine/Next Available) - Closed Specialty Diagnoses / Procedures Referred By Arianaac ana Referred To Contact Radiology Diagnoses 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[facility] Procedures CT HEAD Luisa Fontanez PA-C Phone: tel: fax: Referral ID Status Reason Start Date Expiration Date Visits Re quested Visits Authorized [id number] Closed 12/27/2012 1 1 * Radiology Services (Routine/Next Available) - Closed Specialty Diagnoses / Procedures Referred By Mari perez Referred To Contact Diagnoses 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[facility]) Procedures SHUNT SERIES Luisa Fontanez PA-C Phone: tel: fax: Referral ID Status Reason Start Date Expiration Date Visits Re quested Visits Authorized [id number] Closed 12/27/2012 1 1 Reason for Visit * Reason Comments Follow-up H/A, urinary frequen cy Encounter Details Date Type Department Care Team (Latest Contact Info) Description 12/27/2012 11:15 EDT Office Visit [facility] Neurosurgery - Main [place] [address] [place] [address] Luisa Fontanez PA-C 111 [facility] [place], [address] [place] [phone] 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Primary Dx); Status post ventriculoperitoneal [...] Sign Reading Time Taken Comments Blood Pressure 118/82 12/27/2012 1205 EDT Pulse 70 12/27/2012 1205 EDT Temperature - - Respiratory Rate 16 12/27/2012 1205 EDT Oxygen Saturation - - Inhaled Oxygen Concentration - - Weight - - Height - - Body Mass Index - - documented in this encounter Discharge Disposition Disposition Code Departure Means Destination Auto Discharge documented in this encounter Progress Notes * Luisa Mckay PA-C - 12/29/2012 0812 EDT Neurosurgery Shunt Check Patient Active Problem List Diagnoses Date Noted ??? Unspecified hereditary and idiopathic peripheral neuropathy 06/09/2010 ??? Status post ventriculoperitoneal shunt 12/31/2008 Strata valve set at 1.0 ??? 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 She reports a two week history of headache. She describes this as radiating from the right ear to her forehead. She gets the sensation of fluid in my forehead. She feels that her balance may be off as well. Her headache is notconstant, it is intermittent. She does not wake with headaches and they are not positional. She denies fatigue, nausea, vomiting, visual problems, or any deviation from her cognitive baseline. She was seen in her local emergency department and told her headaches were likely attributable to stress. She does state today that this could be the case, stating I do have a lot of stress right now. Shewould like her shunt valve looked at because she feels that it was pushed on by a physician at an outside hospital, and that seemed to worsen things. O/ BP 118/82 Pulse 70 Resp 16 Alert and oriented Accompanied by her mom. Speech is clear and goal directed Mild esotropia - baseline Shunt valve nontender, reservoir easily depressed Shunt tubing continuous to clavicle Shunt interrogated and verified to be at last known setting of 1.0 Shunt series is negative for disconnection A/ Dandy Walker malformation s/p CONTACT PRINTER DRY FILM shunt, now with two weeks of headache but otherwise neurologicallyat baseline. Shunt valve is at last known setting and xrays are negative for disconnection. Although her symptoms are not completely consistent with shunt malfunction, they are persisting. She has not had a CT in 2 years. We will obtain a head CT at her local hospital for comparison. If increased fluid, suspect shunt is malfunctioning, if scan is stable her headaches are likely resulting from another cause. She is in agreement with this plan. P/ Head [facility] Telephone f/u Bekah Scott NP thank you for the opportunity to participate in Radha's care. Please feel freeto contact our office with any questions you may have. Luisa Mckay, PAC documented in this encounter Procedure Notes * EQUAL OPPORTUNITY OFFICER, SCAN 2 - 01/24/2013 7887 EDTAssociated Order(s): ORDERS - SCANNED documented in this encounter Plan of Treatment Scheduled Orders Name Type Priority Associated Diagnoses Orde r Schedule CT HEAD Imaging Routine Communicating hydrocephalus Ordered: 12/27/2012 documented as of this encounter Procedures Procedure Name Priority Date/Time Associated Diagnosis Comments ORDERS - SCANNED 01/24/2013 14:4 7 EDT SHUNT SERIES Routine 12/27/2012 11:57 EDT Communicating hydrocephalus documented in this encounter Results * ORDERS - SCANNED (01/24/2013 14:47 EDT) 01/24/2013 14:4 7 EDT Narrative 01/25/2013 11:42 EDT Procedure Note EQUAL OPPORTUNITY OFFICER, SCAN 2 - 01/24/2013 14:47 EDT us Scan 2 Antique Clock Repairer ADMISSION ORDERABLES Final Result * SHUNT SERIES (12/27/2012 11:57 EDT) Anatomical Region Laterality Modality Other 12/27/2012 11:5 7 EDT 12/27/2012 13:52 EDT Narrative 12/27/2012 13:52 EDT SHUNT SERIES ??12/27/2012 11:57 AM Signs and Symptoms/Comments: ??331.3-Communicating gyjwjioexxjau-SOB-8-CM; headache, svp monetization shunt Comparison study sep 18 2009. AP and lateral views of the skull show a shunt tube coming in from the right with the tip in the midline. The overall appearance of the tubing and connection to the valve are not significantly changed. There is no break of the tubing seen in the neck. The tubing is poorly demonstrated in the chest although no obvious fracture of the tube is demonstrated. There are 2 different types of tubing overlying the lower chest, better demonstrated on the prior study. There appear to be 2 types of tubing overlying the abdomen one of which is somewhat more prominent and has its tip overlying the right lower quadrant. This is also seen previously is not grossly changed in position. On the lateral view this appears to be somewhat anterior and may have little if any length within the peritoneum. No break of this tubing is demonstrated. The other tubing previously had its tip in the upper left pelvis. This appears to have its tip in the lower right pelvis suggesting is not fixed in position. This tubing however is not well seen along some of its length and assessment for fracture of the tube is inadequate although no break is demonstrated. Minimal lumbar levoscoliosis may be positioning. No gross abnormality of the bowel gas pattern. No gross abnormality the heart and lungs. Impression: More prominent tubing seen on the abdominal films is not changed in position and somewhat anterior with little and possibly no portion in the abdomen. The other shunt tubing has its tip in a different position in the abdomen compared to previous suggesting is not fixed in position. Some portions of this shunt are poorly demonstrated particularly in the chest and although no definite break is demonstrated this is not an optimal evaluation of the shunt tubing. There is no gross abnormality seen in the intracranial portions of the shunt and no fracture of the neck is demonstrated. Procedure Note 12/27/2012 SHUNT SERIES 12/27/2012 11:57 AM Signs and Symptoms/Comments: 331.3-Communicating cpwjuknoithjr-OQC-6-CM; headache, svp monetization shunt Comparison study sep 18 2009. AP and lateral views of the skull show a shunt tube coming in from the right with the tip in the midline. The overall appearance of the tubing and connection to the valve are not significantly changed. There is no break of the tubing seen in the neck. The tubing is poorly demonstrated in the chest although no obvious fracture of the tube is demonstrated. There are 2 different types of tubing overlying the lower chest, better demonstrated on the prior study. There appear to be 2 types of tubing overlying the abdomen one of which is somewhat more prominent and has its tip overlying the right lower quadrant. This is also seen previously is not grossly changed in position. On the lateral view this appears to be somewhat anterior and may have little if any length within the peritoneum. No break of this tubing is demonstrated. The other tubing previously had its tip in the upper left pelvis. This appears to have its tip in the lower right pelvis suggesting is not fixed in position. This tubing however is not well seen along some of its length and assessment for fracture of the tube is inadequate although no break is demonstrated. Minimal lumbar levoscoliosis may be positioning. No gross abnormality of the bowel gas pattern. No gross abnormality the heart and lungs. Impression: More prominent tubing seen on the abdominal films is not changed in position and somewhat anterior with little and possibly no portion in the abdomen. The other shunt tubing has its tip in a different position in the abdomen compared to previous suggesting is not fixed in position. Some portions of this shunt are poorly demonstrated particularly in the chest and although no definite break is demonstrated this is not an optimal evaluation of the shunt tubing. There is no gross abnormality seen in the intracranial portions of the shunt and no fracture of the neck is demonstrated. Luisa Fontanez PA-C IMG DIAGNOSTIC I MAGING ORDERABLES Final Result documented in this encounter Visit Diagnoses Diagnosis 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HCC-CMS)- Primary Communicating hydrocephalus Status post ventriculoperitoneal shunt Presence of cerebrospinal fluid drainage device documented in this encounter Discontinued Medications Medication Sig Discontinue Reason Start Date End Da te clonAZEPAM (KLONOPIN) 0.5 mg tablet Take 0.5 mg by mouth 2 times daily. 03/18/2010 12/27/2012 levetiracetam (KEPPRA) 500 mg tablet Take 1.5 Tabs by mouth 2 times daily. RX increased 08/12/2010 12/27/2012 Multivitamins with Minerals Tab Take 1 Tab by mouth daily. 12/27/2012 documented as of this encounter Historical Medications * This list may reflect changes made after this encounter. LORazepam (ATIVAN) 0.5 mg tablet Take 1 mg by mouth 3 times daily. added in this encounter Care Teams Spin Table Operator Relationship Specialty Start Date End Date Rain Scott NP [address] [place] [address] [address] [place] [address] PCP - General 12/26/12 11/28/13 documented as of this encounter
--- OUTSIDE RECORDS SUMMARY | 2024-03-28 11:12 | XMS_ITS | Encounter Summary ---
Author Organization [facility] Address [address] [place] [address] Care Team Providers Care Job Hand Name Role Phone [place] JohnsVivek hassan Primary Care Provider [phone] Encounter Details Date Type Department Care Team (Latest Contact Info) Description 08/10/2016 11:24 EDT - 08/10/2016 23:59 EDT Hospital Encounter [address] [address] Unknown, Provider, MD Discharge Disposition: Home or Self Care Social History Tobacco Use Types Packs/Day Years [...] Discharge Disposition Disposition Code Departure Means Destination Home or Self Long-Term documented in this encounter Plan of Treatment Not on file documented as of this encounter Visit Diagnoses Not on filedocumented in this encounter Care Teams Job Hand Relationship Specialty Start Date End Date Vivek Ohara DO PCP - General 11/29/13 06/09/17 documented as of this encounter
--- OUTSIDE RECORDS SUMMARY | 2024-03-28 11:12 | XMS_ITS | Encounter Summary ---
Author Organization [facility] Address [address] [place] [address] Care Team Providers Care Animal Taxonomist Name Role Phone Vivek Ohara DO Primary Care Provider [phone] Reason for Visit * Reason Onset Date Comments Appointment Related 05/25/2017 Pateint need s to cancel and reschedule her appt. for omorrow with Dr. Jama Encounter Details Date Type Department Care Team (Late st Contact Info) Description 05/25/2017 Telephone [facility] Neurosurgery - [facility] [address] [place], [place] [id number] Ben Jama MD 111 [facility], [address] [place] [address] Appointment Related (Pateint needs to cancel and reschedule her appt. for omorrow with Dr. Jama) Social History Tobacco Use Types Packs/Day Years [...] * Telephone Encounter - Lisa Gustafson - 05/25/2017 1320 EST Spoke to patient and rescheduled to 06/13 at 1PM. * Telephone Encounter - Vail Selina - 05/25/2017 1059 EST Please cancel and reschedule documented in this encounter Plan of Treatment Not on file documented as of this encounter Visit Diagnoses Not on filedocumented in this encounter Care Teams Animal Taxonomist Relationship Specialty Start Date End Date Vivek Ohara DO PCP - General 11/29/13 06/09/17 documented as of this encounter
--- OUTSIDE RECORDS SUMMARY | 2024-03-28 11:12 | XMS_ITS | Encounter Summary ---
Author Organization [facility] Address [address] [place] [address] Care Team Providers Care Development Scientist Name Role Phone Vivek Ohara Primary Care Provider Reason for Visit * Reason Onset Date Comments Discuss Test Results 12/13/2013 12/12/13 CT Encounter Details Date Type Department Care Team (Late st Contact Info) Description 12/13/2013 Telephone [facility] Neurosurgery - [facility] [address] [place], [place] [id number] Luisa Fontanez PA-C 111 [facility], [address] [place] [address] Discuss Test Results (12/12/13 CT) Social History Tobacco Use Types Packs/Day Years [...] encounter Miscellaneous Notes * Telephone Encounter - Luisa Mckay PA-C - 12/13/2013 1124 EDT Spoke with Radha - head CT looks okay. Reviewed with Dr Corona. Scans from 2012 to present all look identical, as well as a prior scan from 2001. Last known shunt failure was in 2008 - those scans (3)all reveal enlarged ventricles. Her current scan is not consistent with shunt malfunction given serial scans reviewed. Discussed with Radha by phone. She states that is is not a matter of life or but that she wanted to know the results. Her headaches are inconsistent and she notes at times they are related to high blood sugar, stating she has just been diagnosed with diabetes. She also notes a history of migraines. Recommended she f/u with PCP to discuss this further. At this time the xrays and head CT do not indicate shunt malfunction and her valve setting remains stable. Luisa Mckay, PAC * Telephone Encounter - Portia Menendez - 12/13/2013 1024 EDT Pt requests 12/12/13 CT results. Per pt this is a matter of life or , this needs to be done JONO. documented in this encounter Plan of Treatment Not on file documented as of this encounter Visit Diagnoses Not on filedocumented in this encounter Care Teams Development Scientist Relationship Specialty Start Date End Date Vivek Ohara DO PCP - General 11/29/13 06/09/17 documented as of this encounter
--- OUTSIDE RECORDS SUMMARY | 2024-03-28 11:13 | XMS_ITS | Encounter Summary ---
Author Organization [facility] Address [address] [place] [address] Care Team Providers Care Provisioning Specialist Name Role Phone Amanda Siegel MD Primary Care Provider [phone] Reason for Visit * Reason Onset Date Comments Rash 09/03/2010 pt started Cymba lta about a week ago and now has a rash Encounter Details Date Type Department Care Team (Late st Contact Info) Description 09/03/2010 Telephone [facility] Neurology - [place] [address] [place] [phone] Maldonado Mcnally MD [address] [place] [address], [address] [place] [address] Rash (pt started Cymbalta about a week ago and now has a rash ) Social History Tobacco Use Types Packs/Day Years [...] encounter Miscellaneous Notes * Telephone Encounter - Maldonado Mcnally MD - 09/14/2010 8010 EDT Mayte Delarosa. Noted. Maldonado * Telephone Encounter - Jinny Nash - 09/03/2010 1401 EDT Rash all over face. Bumpy, a little bit itchy. Also a little bit on stomach. No other symptoms. Shestarted cymbalta on Friday 09/01. She has not taken any yet today. Suggested she stop taking cymbalta and see if rash resolves over the next day or two. Call early next week if she wants to start something in its place. Also call pcp if rash does not improve after d/c cymbalta to r/o other pathology . documented in this encounter Plan of Treatment Not on file documented as of this encounter Visit Diagnoses Not on filedocumented in this encounter Care Teams Provisioning Specialist Relationship Specialty Start Date End Date Amanda Siegel MD [address] [place] [address] PCP - General 08/04/09 12/25/12 documented as of this encounter
--- OUTSIDE RECORDS SUMMARY | 2024-03-28 11:13 | XMS_ITS | Encounter Summary ---
Author Organization [facility] Address [address] [place] [address] Care Team Providers Care Irrigating Pump Operator Name Role Phone Amanda Siegel MD Primary Care Provider [phone] Rain Scott NP Primary Care Provider [phone] Vivek Ohara DO Primary Care Provider [phone] Maury Ware DO Primary Care Provider [phone] Reason for Visit * Reason Comments Other We asked her to have her pcp contact us. That office asked Dr. Mcnally to call the PCP instead Encounter Details Date Type Department Care Team (Late st Contact Info) Description 10/07/2010 Telephone [facility] Neurology - [address] [address] Maldonado Mcnally MD [address] [place] [address], [address] [place] [address] Other (We asked her to have her pcp contact us. That office asked Dr. Mcnally to call the PCP instead) Social History Tobacco Use Types Packs/Day Years [...] Telephone Encounter - Maldonado Mcnally MD - 10/26/2010 1332 EDT Called and left another message with Dr. Siegel's office to call me to discuss. documented in this encounter Plan of Treatment Not on file documented as of this encounter Visit Diagnoses Not on filedocumented in this encounter Care Teams Irrigating Pump Operator Relationship Specialty Start Date End Date Amanda Siegel MD [address] [place] [address] PCP - General 08/04/09 12/25/12 Rain Scott NP [address] [place] [address] [address] [place] [phone] PCP - General 12/26/12 11/28/13 Vivek Ohara DO [address] [facility] [address] [place] [phone] PCP - General 11/29/13 06/09/17 Maury Ware DO [address] [place] [address] PCP - General 06/10/17 documented as of this encounter
--- OUTSIDE RECORDS SUMMARY | 2024-03-28 11:13 | XMS_ITS | Encounter Summary ---
Author Organization [facility] Address [address] [place] [address] Care Team Providers Care Circulation Tender Name Role Phone Amanda Siegel MD Primary Care Provider [phone] Reason for Visit * Reason Onset Date Comments Medication Management 08/10/2010 STILL wait ing to hear back from Dr Mcnally, VERY frustrated, please call Encounter Details Date Type Department Care Team (Late st Contact Info) Description 08/10/2010 Telephone [facility] Neurology - [address] [id number] Maldonado Mcnally MD [address] [place] [address] [address] [place] [address] Medication Management (STILL waiting to hear back from Dr Mcnally, VERY frustrated, please call) Social History Tobacco Use Types Packs/Day Years [...] on file documented as of this encounter Ordered Prescriptions Prescription Sig Dispense Quantity Refills Last Filled Start Date End Date levetiracetam (KEPPRA) 500 mg tablet Take 1.5 Tabs by mouth 2 times daily. RX increased 90 Tab 3 08/12/2010 3 documented in this encounter Miscellaneous Notes * Telephone Encounter - Rik Ward RN - 08/12/2010 1126 EDT Pt is aware and RX updated at the pharmacy * Telephone Encounter - Maldonado Mcnally MD - 08/12/2010 1049 EDT OK to do. * Telephone Encounter - Rik Ward RN - 08/10/2010 1530 EDT Was about increasing keppra to 500mg BID-------Ok'd by dr. Mcnally on 08/06/10-----pt called and spoke to Dr. Dewey on the weekend and said she was told to increase the Keppra to 750mg BID due to leg pain and she will again need and updated RX into the pharmacy---will verify with Dr. Mcnally that this dose is OK--pt says that she has bee on the 500mg BID for a week now-rik documented in this encounter Plan of Treatment Not on file documented as of this encounter Visit Diagnoses Not on filedocumented in this encounter Discontinued Medications Medication Sig Discontinue Reason Start Date End Da te levetiracetam (KEPPRA) 500 mg tablet Take 1 Tab by mouth 2 times daily. NEW TABLET DOSING Reorder 08/06/2010 08/12/2010 documented as of this encounter Care Teams Circulation Tender Relationship Specialty Start Date End Date Amanda Siegel MD [address] [place] [address] PCP - General 08/04/09 12/25/12 documented as of this encounter
--- OUTSIDE RECORDS SUMMARY | 2024-03-28 11:13 | XMS_ITS | Encounter Summary ---
Author Organization [facility] Address [address] [place] [address] Care Team Providers Care Barrel Bridge Assembler Name Role Phone Amanda Siegel MD Primary Care Provider [phone] Encounter Details Date Type Department Care Team (Late st Contact Info) Description 04/09/2010 Results Only [facility] Neurosurgery - [address] [address] Ben Jama MD [address] [facility], [address] [place] [phone] Social History Tobacco Use Types Packs/Day Years Used Date Smoking Tobacco: Never Alcohol Use Standard Drinks/Week Comments No 0 (1 standard drink = 0.6 oz pur e alcohol) Comments Unknown Sex and Gender Information Value Date Recorded Sex Assigned at Not on file Legal Sex Female 17:25 EST Gender Identity Not on file Sexual Orientation Not on file documented as of this encounter Plan of Treatment Pending Results Name Type Priority Associated Diagnoses Date /Time OUTSIDE CD - CT NEURO Imaging 06/2009 12:21 EST documented as of this encounter Visit Diagnoses Not on filedocumented in this encounter Care Teams Barrel Bridge Assembler Relationship Specialty Start Date End Date Amanda Siegel MD [address] [place] [address] PCP - General 08/04/09 12/25/12 documented as of this encounter
--- OUTSIDE RECORDS SUMMARY | 2024-03-28 11:13 | XMS_ITS | Encounter Summary ---
Author Organization [facility] Address [address] [place] [address] Care Team Providers Care Sheet Heater Helper Name Role Phone Amanda Siegel MD Primary Care Provider Encounter Details Date Type Department Care Team (Late st Contact Info) Description 03/19/2010 Orders Only [facility] Neurosurgery - [address] [phone] Ben Jama MD [address] [facility], [address] [place] [phone] Congenital hydrocephalus (HCC-CMS) (Primary Dx) Social History Tobacco Use Types Packs/Day Years [...] as of this encounter Visit Diagnoses Diagnosis Congenital hydrocephalus (HCC-CMS)- Primary Congenital hydrocephalus documented in this encounter Care Teams Sheet Heater Helper Relationship Specialty Start Date End Date Amanda Siegel MD [address] [place] [address] PCP - General 08/04/09 12/25/12 documented as of this encounter
--- OUTSIDE RECORDS SUMMARY | 2024-03-28 11:13 | XMS_ITS | Encounter Summary ---
Author Organization [facility] Address [address] [place] [address] Care Team Providers Care Training Executive Name Role Phone Amanda Siegel MD Primary Care Provider [phone] Reason for Visit * Reason Onset Date Comments Other 07/02/2010 not enough urine for random nydia lyon Encounter Details Date Type Department Care Team (Late st Contact Info) Description 07/02/2010 Telephone [facility] Neurology - [address] [phone] Maldonado Mcnally MD [address] [place] [address] [address] [place] [address] Other (not enough urine for random nydia lyon) Social History Tobacco Use Types Packs/Day Years [...] Telephone Encounter - Maldonado Mcnally MD - 07/07/2010 1621 EST Mary, It will have to be done again when she returns for a follow-up visit. RT * Telephone Encounter - Monika Cameron - 07/02/2010 0852 EST What would you like the lab to do? documented in this encounter Plan of Treatment Not on file documented as of this encounter Visit Diagnoses Not on filedocumented in this encounter Care Teams Training Executive Relationship Specialty Start Date End Date Amanda Siegel MD [address] [facility] [facility] [address] [address] [place] [address] PCP - General 08/04/09 12/25/12 documented as of this encounter
--- OUTSIDE RECORDS SUMMARY | 2024-03-28 11:13 | XMS_ITS | Encounter Summary ---
Author Organization [facility] Address [address] [place] [address] Care Team Providers Care Liturgical Music Director Name Role Phone Amanda Siegel MD Primary Care Provider [phone] Reason for Visit * Reason Onset Date Comments Toe Pain 11/16/2010 Encounter Details Date Type Department Care Team (Late st Contact Info) Description 11/16/2010 Telephone [facility] Neurosurgery - [place] [address] [place] [address] Maria Elena Plunkett RN Toe Pain Social History Tobacco Use Types Packs/Day Years [...] encounter Miscellaneous Notes * Telephone Encounter - Clotilde Man RN - 11/19/2010 1038 EDT Will need to reschedule appt with Dr Mcnally * Telephone Encounter - Maldonado Mcnally MD - 11/18/2010 1642 EDT Will need to see her to offer any advice. Her PCP has not returned my phone calls. * Telephone Encounter - Clotilde Man RN - 11/17/2010 1227 EDT Pt. Had New pt visit with Dr. Mcnally 07/01/10. She No showed for 10/14/10 Neuology appt with Shilpi Hawkins. She was bumped from Dr Mcnally's schedule 11/04/10, due to Dr Mcnally's schedule. She was rescheduled to 11/16/10 and called 11/13/10 to cancel that appt. She decline to reschedule at that time. C/o worsening foot pain, Keppra is not working. * Telephone Encounter - Maria Elena Plunkett RN - 11/16/2010 1700 EDT Patient phoned to report worsening foot pain and stated my Keppra isn't working. Patient was advised to follow up with Neurology. She stated they keep canceling me. Patient had a similar complaint a few weeks ago. She wants Dr Jama to see her for Neuropathy. Patient instructed to call Neurology. documented in this encounter Plan of Treatment Not on file documented as of this encounter Visit Diagnoses Not on filedocumented in this encounter Care Teams Liturgical Music Director Relationship Specialty Start Date End Date Amanda Siegel MD [address] [place] [address] PCP - General 08/04/09 12/25/12 documented as of this encounter
--- OUTSIDE RECORDS SUMMARY | 2024-03-28 11:13 | XMS_ITS | Encounter Summary ---
Author Organization [facility] Address [address] [place] [address] Care Team Providers Care Invas Tech Name Role Phone Amanda Siegel MD Primary Care Provider [phone] Encounter Details Date Type Department Care Team (Late st Contact Info) Description 02/09/2010 Results Only [facility] Laboratory Services - [facility] ([facility] [address] [place], [place] [phone] Dina Hussein, [facility] [address] [place] [phone] Social History Tobacco Use Types Packs/Day Years [...] Procedure Name Priority Date/Time Associated Diagnosis Comments CYTOPATHOLOGY Routine 02/09/2010 0:00 EDT documented in this encounter Results * CYTOPATHOLOGY (02/09/2010 0:00 EDT) Pathology Report: CYTOPATHOLOGY REPORT ? Reports generated via electronic interface contain original data; ? however they are lacking the format of the original report. ? Caution should be taken when reading/interpreti ng unformatted reports. ? Name: ? LORENA RADHA Juan Diego ? Accession #: ? [id number] ? : ? 1980 (Age: 29) ??F ?Collect Date: ? 02/09/2010 ? Location: ? [facility] ? Receive Date: ? 02/10/2010 ? Provider: ?DINA EMA SOFTWARE DEVELOPER MID LEVEL ? Copy to: ? Specimen/Source: ?Pap Test, Cervix/Endocervix, ThinPrep Imaging System ? with manual evaluation ? Last Menstrual Period: ? Brandt. 2010 ? Other: ? Additional clinical information: 08/09 pap wnl ? HPVA - HPV testing requested if ASC-US on the current ThinPrep Pap test. ? SPECIMEN ADEQUACY ? Satisfactory for Evaluation ? - transformation zone component present ? GENERAL CATEGORIZATION ? Negative for Intraepithelial Lesion or Malignancy ? Document reviewed and electronically signed by: ? Angela Verville,CT(ASCP) ? Report Date: ??02/13/2010 10:47 ? End of Report ? [facility] 02/09/2010 02/10/2010 us Dina Hussein SOFTWARE DEVELOPER MID LEVEL PATHOLOGY ORDERABLES Final R esult [facility] [address] [place] [address] documented in this encounter Visit Diagnoses Not on filedocumented in this encounter Care Teams Invas Tech Relationship Specialty Start Date End Date Amanda Sieegl MD [address] [place] [address] PCP - General 08/04/09 12/25/12 documented as of this encounter
--- OUTSIDE RECORDS SUMMARY | 2024-03-28 11:13 | XMS_ITS | Encounter Summary ---
Author Organization [facility] Address [address] [place] [address] Care Team Providers Care Piccoloist Name Role Phone Amanda Siegel MD Primary Care Provider [phone] Reason for Visit * Reason Onset Date Comments Follow-up 10/06/2010 Encounter Details Date Type Department Care Team (Late st Contact Info) Description 10/06/2010 Telephone [facility] Neurosurgery - [address] [phone] Ben Jama MD [address] [facility], [address] [place] [address] Follow-up Social History Tobacco Use Types Packs/Day Years [...] Telephone Encounter - Clotilde Man RN - 10/06/2010 1658 EDT TC to pt. Dr. Mcnally will speak with PCP. Pt to call PCP and ask her to contact Dr. Mcnally Via PAS. * Telephone Encounter - Maldonado Mcnally MD - 10/06/2010 1628 EDT Clotilde Logan, I will be happy to talk to her doctor to try and see what he would want us to do. He can call me through PAS. Thanks. RT * Telephone Encounter - Maria Elena Plunkett RN - 10/06/2010 1028 EDT Communication Electronic Technician spoke with patient who wants Dr Jama to find a Neurologist who will do something. Patientsays Dr Mcnally is not helping her, yet she has had phone encounters with his nursing staff and was resistant to adjusting medications (see phone encounter 10/01/10). Patient has follow up with Dr Mcnally in one month and will be seen at the headache clinic Next Tuesday. She was advised to be referred to another Neurologist by her PCP is she is unhappy with her care, but that our office does not dictate practice to other specialists. * Telephone Encounter - Jennifer Ramey - 10/06/2010 0857 EDT Patient called asking to speak with Neurosurgery nurse. She is feeling like she is getting nowhere with Dr. Mcnally - states he hasn't helped me at all. Sees him for her neuropathy. States she has talked to his RNs several times. documented in this encounter Plan of Treatment Not on file documented as of this encounter Visit Diagnoses Not on filedocumented in this encounter Care Teams Piccoloist Relationship Specialty Start Date End Date Amanda Siegel MD [address] [place] [address] PCP - General 08/04/09 12/25/12 documented as of this encounter
--- OUTSIDE RECORDS SUMMARY | 2024-03-28 11:13 | XMS_ITS | Encounter Summary ---
Author Organization [facility] Address [address] [place] [address] Care Team Providers Care Loader Unloader Name Role Phone Amanda Siegel MD Primary Care Provider [phone] Reason for Visit * Reason Onset Date Comments Foot Burn 08/31/2010 wants to know if there is another medication option for foot burning pain, please call Encounter Details Date Type Department Care Team (Late st Contact Info) Description 08/31/2010 Telephone [facility] Neurology - [address] [phone] Maldonado Mcnally MD [address] [place] [address], [address] [place] [address] Foot Burn (wants to know if there is another medication option for foot burning pain, please call) Social History Tobacco Use Types [...] Refills Last Filled Start Date End Date duloxetine (CYMBALTA) 30 mg capsule Take 1 Cap by mouth at bedtime. 60 Cap 0 09/01/2010 10/01/2010 documented in this encounter Miscellaneous Notes * Telephone Encounter - Clotilde Man RN - 09/01/2010 1243 EDT Pt instructed in Cymbalta , start at 30 mg at bedtime for 2 weeks , then increase to 2 caps at bedtime. Rx sent to [facility] in [place]. * Telephone Encounter - Mago Coronado - 09/01/2010 1122 EDT Clotilde alonzo I would try Cymbalta next. Start 30 mg per day and in two weeks increase to 60 mg. Start at night and if can't sleep then can always switch it to the AM. Main side effect is nausea which is less if taken at night * Telephone Encounter - Clotilde Man RN - 09/01/2010 1054 EDT TC from Pt New phone number [phone]. C/o severe burning pain in both feet. On Keppra 1500mh daily, Does not want to go higher on Keppra dose, feels she would not be able to function on higher dose. Asking if there is anything else she can try for the pain? She has tried Topamax, Gabapentin, Pregabalin and Amitriptyline. documented in this encounter Plan of Treatment Not on file documented as of this encounter Visit Diagnoses Not on filedocumented in this encounter Care Teams Loader Unloader Relationship Specialty Start Date End Date Amanda Siegel MD [address] [place] [address] PCP - General 08/04/09 12/25/12 documented as of this encounter
--- OUTSIDE RECORDS SUMMARY | 2024-03-28 11:13 | XMS_ITS | Encounter Summary ---
Author Organization [facility] Address [address] [place] [address] Care Team Providers Care Pathology Laboratory Aide Name Role Phone Amanda Siegel MD Primary Care Provider [phone] Reason for Visit * Reason Onset Date Comments Peripheral Neuropathy 08/09/2010 worsening neuropathy on Keppra 500 mg Encounter Details Date Type Department Care Team (Late st Contact Info) Description 08/09/2010 Telephone [facility] Adult Neurology - [facility] [address] [place], [place] [phone] Madan Dewey M [address] [place] [phone] Peripheral Neuropathy (worsening neuropathy on Keppra 500 mg) Social History Tobacco Use Types Packs/Day Years [...] Encounter - Maldonado Mcnally MD - 08/12/2010 1051 EDT Thanks. * Telephone Encounter - Madan Dewey - 08/09/2010 0520 EDT Ms. Moya called 08/09 and would like a call from Dr. Mcnally with regard to her neuropathy. She wasinstructed to increase Keppra from 500 mg to 750 mg bid. documented in this encounter Plan of Treatment Not on file documented as of this encounter Visit Diagnoses Not on filedocumented in this encounter Care Teams Pathology Laboratory Aide Relationship Specialty Start Date End Date Amanda Siegel MD [address] [facility] [address] PCP - General 08/04/09 12/25/12 documented as of this encounter
--- OUTSIDE RECORDS SUMMARY | 2024-03-28 11:13 | XMS_ITS | Encounter Summary ---
Author Organization [facility] Address [address] [place] [address] Care Team Providers Care Controls Project Engineer Name Role Phone Kirk Siegel MD Primary Care Provider [phone] Reason for Visit * Reason Comments Medical Evaluation Has cellulitis to ab d near MANAGER PATHOLOGY shunt. Redness area spreading Encounter Details Date Type Department Care Team (Late st Contact Info) Description 08/04/2009 14:31 EDT - 08/04/2009 18:15 EDT Emergency [facility] Emergency Department - [facility] [address], [place] [id number] Vivek Lizarraga MD [address] [facility], [address] [place] [address] Emergency, MD [place]enike Cellulitis of abdominal wall Discharge Disposition: Home or Self Care Social [...] Sign Reading Time Taken Comments Blood Pressure 99/52 08/04/2009 1652 EDT Pulse 97 08/04/2009 1652 EDT Temperature 36.2 ??C (97.2 ??F) 08/04/2009 1438 EDT Respiratory Rate 18 08/04/2009 1652 EDT Oxygen Saturation 100% 08/04/2009 1652 EDT Inhaled Oxygen Concentration - - Weight - - Height - - Body Mass Index - - documented in this encounter Discharge Instructions * Discharge Instructions* Vivek Lizarraga MD - 08/04/2009 16:54 EDT Images from the original note were not included. Apply heat to the affected area as much as possible. Continue the Cipro as prescribed in addition to the clindamycin. [facility] Patient Instructions Cellulitis: After Your Visit to the Emergency Room Your Care Instructions Cellulitis is a skin infection that can spread to other tissues in the body. It can lead to a serious infection of the blood. It is important to follow instructions for home treatment and follow-up care so that you recover completely. Even though you have been released from the emergency room, you still need to watch for any problems. The doctor carefully checked you. But sometimes problems can develop later. If you have new symptoms, or if your symptoms do not get better, return to the emergency room or call your doctor right away. A visit to the emergency room is only one step in your treatment. Even if you feel better, you still need to do what your doctor recommends, such as going to all suggested follow-up appointments and taking medicines exactly as directed. This will help you recover and help prevent future problems. How can you care for yourself at home? ?? You may need antibiotics that you take through a tube in your arm (IV) at home. Your doctor willtell you how to use this medicine. If you are taking antibiotic pills, take them as directed. Do not stop taking them just because youfeel better. You need to take the full course of antibiotics. Prop up the infected area on pillows to reduce pain and swelling. Try to keep the area above the level of your heart as much as you can. Keep the skin clean and dry. Change your bandages as your doctor has told you. Ask your doctor if you can take anti-inflammatory medicines to reduce pain and swelling. Do not take two or more pain medicines at the same time unless the doctor told you to. Many pain medicines have acetaminophen, which is Tylenol. Too much acetaminophen (Tylenol) can be harmful. If your doctor told you to use support stockings, wear them as directed. This will help prevent swelling. Get plenty of rest. Follow up with your doctor to make sure that the infection is gone. When should you call for help? Call 911 if: ?? You pass out (lose consciousness). You have other symptoms that you think are a medical emergency. Return to the emergency room now if: ?? You are dizzy or lightheaded, or you feel like you may faint. You have signs that the infection is getting worse, such as: ?? Increased pain, swelling, warmth, or redness. New or increasing red streaks leading from the skin infection. New or increasing pus draining from the skin infection. Swollen lymph nodes in your neck, armpits, or groin. A new or higher fever. Call your doctor today if: ?? You have problems with your medicine. Where can you learn more? Go to www.SmartP[employer].net/fahc Enter E813 in the search box to learn more about Cellulitis: After Your Visit to the Emergency Room. ?? 2005 - 2008 [employer]. Care instructions adapted under license by [facility], [facility] . This care instruction is for use with your licensed healthcare professional. If you have questions about a medical condition or this instruction, always ask your healthcare professional. [employer] disclaims any warranty or liability for your use of this information. documented in this encounter Medications at Time of Discharge albuterol (PROVENTIL HFA, VENTOLIN HFA) 90 mcg/Actuation inhaler Inhale 2 Puffs as directed 3 times daily as needed for Wheezing. 8.5gm esomeprazole (NEXIUM) 20 mg capsule Take 40 mg by mouth 2 times daily. acetaminophen (TYLENOL) 500 mg tablet Take 1,000 mg by mouth 4 times daily as needed for Pain. 06/08/2010 butalbital-aceta minophen-caffein e (FIORICET, ESGIC) 50-325-40 mg per tablet Take 1 Tab by mouth daily as needed for Headaches. 06/08/2010 citalopram (CELEXA) 20 mg tablet Take 20 mg by mouth 2 times daily. 06/08/2010 clindamycin (CLEOCIN) 300 mg capsule Take 1 Cap by mouth 4 times daily for 7 days. 28 Cap 0 08/04/2009 08/11/2009 isometheptene-ac etaminophen-dich loralphenazone (MIDRIN) 325-65-100 mg per capsule Take 1 Cap by mouth 4 times daily as needed. 06/08/2010 omeprazole (PRILOSEC) 20 mg capsule Take 20 mg by mouth daily. 06/08/2010 oxycodone (ROXICODONE) 5 mg immediate release tablet Take 1 Tab by mouth every 4 hours as needed for Pain. 60 0 01/03/2009 06/08/2010 promethazine (PHENERGAN) 12.5 mg tablet Take 12.5 mg by mouth 3 times daily as needed for Nausea. 06/08/2010 ranitidine (ZANTAC) 150 mg tablet Take 300 mg by mouth at bedtime. 06/08/2010 documented as of this encounter Ordered Prescriptions Prescription Sig Dispense Quantity Refills Last Filled Start Date End Date clindamycin (CLEOCIN) 300 mg capsule Take 1 Cap by mouth 4 times daily for 7 days. 28 Cap 0 08/04/2009 08/11/2009 documented in this encounter Discharge Disposition Disposition Code Departure Means Destination Home or Self Care Walk-out Home documented in this encounter ED Notes * Rufina Mahoney - 08/04/2009 1814 EDT Dc instructions reviewed with patient. Pt DC'd to home. * Vivek Lizarraga MD - 08/04/2009 1621 EDT Images from the original note were not included. DOS: 08/04/2009 Chief Complaint Patient presents with ??? Medical Evaluation Has cellulitis to abd near MANAGER PATHOLOGY shunt. Redness area spreading The patient is a 29 y.o. female who presents today with Medical Evaluation The history is provided by the patient. Rash This is a new problem. The current episode started 2 days ago (erythematous rash on abdomen). The problem has been gradually worsening. The problem is associated with nothing. There has been no fever. Affected Location: RUQ abdomen adjacent to old healed incision from MANAGER PATHOLOGY shunt placement. The pain is mild. The pain has been constant since onset. Associated symptoms include pain. Treatments Tried: s tarted Cipro yesterday after seen at [facility] ED, but redness worsening. Review of Systems Constitutional: Negative for fever and chills. HENT: Negative for neck stiffness. Eyes: Negative for visual disturbance. Respiratory: Negative for shortness of breath. Cardiovascular: Negative for chest pain. Gastrointestinal: Negative for abdominal pain. Genitourinary: Negative for dysuria. Musculoskeletal: Negative for back pain. Skin: Positive for rash. Neurological: Negative for headaches. Psychiatric/Behavioral: Negative for confusion. All other systems reviewed and are negative. Past Medical History Diagnosis Date ??? Hydrocephalus shunt placed 1978 ??? GERD (gastroesophageal reflux disease) ??? Asthma ??? Depression ??? Ovarian cyst ??? Ventral hernia 2 yrs Past Surgical History Procedure Date ??? Eye surgery 1980 Allergies Allergen Reactions ??? Sulfa (Sulfonamide Antibiotics) Swelling ??? Ibuprofen Itching and Nausea Only ??? Cephalexin Itching ??? Nitrofurazone ??? Topiramate Increased HAs ??? Rofecoxib ??? Macrobid (Nitrofurantoin (Jcopksbcyy41%)) Itching History Substance Use Topics ??? Tobacco Use: Never ??? Alcohol Use: No History reviewed. No pertinent family history. BP 99/52 Pulse 97 Temp(Src) 36.2 ??C (97.2 ??F) (Tympanic) Resp 18 SpO2 100% Physical Exam Nursing note and vitals reviewed. Constitutional: She appears well-developed and well-nourished. HENT: Head: Normocephalic and atraumatic. Right Ear: External ear normal. Left Ear: External ear normal. Nose: Nose normal. Eyes: Pupils are equal, round, and reactive to light. Right eye exhibits no discharge. Left eye exhibits no discharge. Neck: Normal range of motion. Neck supple. No tracheal deviation present. Cardiovascular: Normal rate, regular rhythm and normal heart sounds. Pulmonary/Chest: Breath sounds normal. No respiratory distress. Abdominal: Soft. No tenderness. Musculoskeletal: Normal range of motion. Neurological: She is alert. She has normal strength. No sensory deficit. Skin: No rash noted. Psychiatric: She has a normal mood and affect. Radiology orders: None Procedures ED Course: Patient with focal area of cellulitis on abdominal wall adjacent to old healed incision for shunt placement. Records from [facility] 08/03/09 CT abdomen reveals inflammatory changes in subcutaneous fat in this area without evidence of abscess or hernia, and no other intraabdominal process seen. Discharge Prescriptions New Prescriptions CLINDAMYCIN (CLEOCIN) 300 MG CAPSULE Take 1 Cap by mouth 4 times daily for 7 days. MDM Number of Diagnoses and Management Options Cellulitis of abdominal wall: General comments: 4 Amount and/or Complexity of Data Reviewed Clinical lab tests: ordered and reviewed Decide to obtain previous medical records or to obtain history from someone other than the patient:yes Review and summarize past medical records: yes Encounter Diagnoses Code Name Primary? Qualifier ??? 682.2K Cellulitis of abdominal wall PCP: KIRK SIEGEL MD 08/06/2009 10:52 AM * Rufina Mahoney - 08/04/2009 1614 EDT Blood drawn via saline lock per protocol, tiger and purple tube(s) sent to lab per order. documented in this encounter Miscellaneous Notes * Scanned Note-Null - Inpatient, Physician - 08/06/2009 0918 EDT documented in this encounter Plan of Treatment Not on file documented as of this encounter Procedures Procedure Name Priority Date/Time Associated Diagnosis Comments COMPLETE BLOOD COUNT AND DIFFERENTIAL STAT 08/04/2009 16:03 EDT C REACTIVE PROTEIN STAT 08/04/2009 16 :03 EDT documented in this encounter Results * (ABNORMAL) C-REACTIVE PROTEIN (08/04/2009 16:03 EDT) C-Reactive Protein 1.4(H) <1.0 mg/dl [facility] Blood specimen (specimen) 08/04/2009 16:03 EDT 08/04/2009 16:13 EDT Vivek Lizarraga MD CHEMISTRY & BLOOD GAS ORDER KAREEN Final Result [facility] [address] [place] [address] * HEMAGRAM AND DIFFERENTIAL (08/04/2009 16:03 EDT) WBC 6.82 4.0 - 12.4 K/cmm [facility] RBC 4.69 3.86 - 5.04 M/cmm [facility] Hemoglobin 13.8 11.6 - 15.2 gm/dl [facility] HCT 41.2 34.9 - 44.4 % [facility] MCV 88 81 - 98 fl [facility] MCH 29.5 26.7 - 33.3 pg [facility] MCHC 33.6 32.1 - 35.9 gm/dl [facility] PLT 239 141 - 320 K/cmm [facility] RDW-CV 13.5 11.7 - 14.6 % [facility] % Neutrophils 52.4 45.5 - 79.7 % [facility] % Lymphocytes 36.9 15.0 - 46.8 % [facility] % Monocytes 8.4 1.8 - 12.0 % [facility] % Eosinophils 2.0 0.6 - 6.9 % [facility] % Basophils 0.3 0.2 - 1.4 % [facility] ABS Neutrophils 3.57 2.20 - 8.85 K/cmm [facility] ABS Lymphs 2.52 1.09 - 3.30 K/cmm [facility] ABS Monocytes 0.58 0.1 - 0.8 K/cmm [facility] ABS Eosinophils 0.14 0.03 - 0.61 K/cmm [facility] ABS Basophils 0.02 0.01 - 0.11 K/cmm [facility] Type of Diff: Automated [facility] Blood specimen (specimen) 08/04/2009 16:03 EDT 08/04/2009 16:13 EDT Vivek Lizarraga MD PACKAGES & DNA PROBE ORDERA BLES Final Result [facility] [address] [place] [address] documented in this encounter Visit Diagnoses Diagnosis Cellulitis of abdominal wall Cellulitis and abscess of trunk documented in this encounter Administered Medications Inactive Administered Medications - up to 3 most recent administrations Medication Order MAR Action Action Date Dose Rate Site clindamycin (CLEOCIN) IVPB 900 mg 900 mg, intravenous, Administer over 30 Minutes, Once (Without Time Specified), 1 dose, Starting on 08/04/09 at 1651, Until Tue08/04/09 at 1743, STAT Given 08/04/2009 17:43 EDT 900 mg documented in this encounter Historical Medications * This list may reflect changes made after this encounter. esomeprazole (NEXIUM) 20 mg capsule Take 40 mg by mouth 2 times daily. added in this encounter Active and Recently Administered Medications Times are shown in EDT. Scheduled Medication Order 08/02/2009 08/03/2009 08/04/2009 clindamycin (CLEOCIN) IVPB 900 mg (COMPLETED) 900 mg, intravenous, Administer over 30 Minutes, Once (Without Time Specified), 1 dose, Starting on Tue08/04/09 at 1651, Until 08/04/09 at 1743, STAT 1743 (Given - Provid er: Rufina Mahoney)1813 (Completed - Provider: Rufina Mahoney) documented in this encounter Orders Diet Count Last Ordered Date First Orde red Date DIET NPO TIME SPECIFIED 1 08/04/2009 documented in this encounter Care Teams Controls Project Engineer Relationship Specialty Start Date End Date Kirk Siegel MD [address] [place] [address] PCP - General 08/04/09 12/25/12 documented as of this encounter
--- OUTSIDE RECORDS SUMMARY | 2024-03-28 11:13 | XMS_ITS | Encounter Summary ---
Author Organization [facility] Address [address] [place] [address] Care Team Providers Care Hospice Chaplain Name Role Phone Amanda Siegel MD Primary Care Provider [phone] Reason for Visit * Reason Onset Date Comments Medication Problem 09/08/2010 was told to s top medication, facial swelling went down, please call Encounter Details Date Type Department Care Team (Late st Contact Info) Description 09/08/2010 Refill [facility] Neurology - [place] [address] [place] [id number] Maldonado Mcnally MD [address] [place] [address], [address] [place] [address] Medication Problem (was told to stop medication, facial swelling went down, please call) Social History Tobacco Use Types [...] encounter Miscellaneous Notes * Telephone Encounter - Naomi Pratt - 09/18/2010 1130 EDT Pt is already on waitlist. * Telephone Encounter - Clotilde Man RN - 09/18/2010 1121 EDT TC to pt c/o pain worse in feet and legs, worse at night and in the morning. Using walker at night. Advised to see PCP and keep October appt with DR. Mcnally. Will place on wait list. * Telephone Encounter - Maldonado Mcnally MD - 09/17/2010 1658 EDT WIll discuss at follow-up. Needs to see family doctor in meantime. * Telephone Encounter - Clotilde Man RN - 09/14/2010 1504 EDT C/o pain and weakness, not able to walk without walker. Will keep October appt. With Dr. Mcnally. Placed on wait list. * Telephone Encounter - Maldonado Mcnally MD - 09/14/2010 1054 EDT Will need to discuss with her at time of follow-up. * Telephone Encounter - Clotilde Man RN - 09/08/2010 1708 EDT TC to pt. Reaction to Cymbalta: Facial swelling Has gone down, rash is gone. Now has pain in feet and legs, feet are more red. Gets chest pain with gabapentin, Amitriptyline did not work. Asking if there is another medicine she can try? documented in this encounter Plan of Treatment Not on file documented as of this encounter Visit Diagnoses Not on filedocumented in this encounter Care Teams Hospice Chaplain Relationship Specialty Start Date End Date Amanda Siegel MD [address] [place] [address] PCP - General 08/04/09 12/25/12 documented as of this encounter
--- OUTSIDE RECORDS SUMMARY | 2024-03-28 11:13 | XMS_ITS | Encounter Summary ---
Author Organization [facility] Address [address] [place] [address] Care Team Providers Care Dog Warden Name Role Phone Amanda Siegel MD Primary Care Provider [phone] Rain Scott NP Primary Care Provider [phone] Vivek Ohara DO Primary Care Provider [phone] Maury Ware DO Primary Care Provider [phone] Reason for Visit * Reason Comments Referral Request Was expecting PT ref erall to [facility]. Encounter Details Date Type Department Care Team (Late st Contact Info) Description 07/07/2010 Telephone [facility] Neurology - [place] [address] [place] [address] Maldonado Mcnally MD [address] [place] [address], [address] [place] [address] Referral Request (Was expecting PT referall to [facility] ?[facility]. [place] Social History Tobacco Use Types Packs/Day Years [...] Telephone Encounter - Maldonado Mcnally MD - 07/16/2010 1542 EST I will need to do a script for her - I will give it to Clotilde Logan here in the ALS clinic here today. * Telephone Encounter - Naomi Pratt - 07/15/2010 1005 EST pt needs referral sent to PT * Telephone Encounter - Tracy Barnett - 07/14/2010 0842 EST Radha has an appt. W/ PT tomorrow but still has not received the referral. * Telephone Encounter - Maldonado Mcnally MD - 07/08/2010 0939 EST Please give me her chart to review my last note - I do not see it in [facility]. Thanks. * Telephone Encounter - Naomi Pratt - 07/08/2010 0933 EST stiill waiting for letter of PT restrictions, has appt tomorrow, please fax to [phone] or [phone], PT's name is Jarvis. * Telephone Encounter - Jinny Nash - 07/07/2010 0906 EST There is no mention of this in the visit note. Will confirm with Dr. Mcnally if pt is to have PT andif so, for what? documented in this encounter Plan of Treatment Not on file documented as of this encounter Visit Diagnoses Not on filedocumented in this encounter Care Teams Dog Warden Relationship Specialty Start Date End Date Amanda Siegel MD [address] [place] [address] PCP - General 08/04/09 12/25/12 Rain Scott NP [address] [place] [address] [address] [place] [address] PCP - General 12/26/12 11/28/13 Vivek Ohara DO [address] [place] [address] [address] [place] [id number] PCP - General 11/29/13 06/09/17 Maury Ware DO [address] [place] [address] PCP - General 06/10/17 documented as of this encounter
--- OUTSIDE RECORDS SUMMARY | 2024-03-28 11:13 | XMS_ITS | Encounter Summary ---
Author Organization [facility] Address [address] [place] [address] Care Team Providers Care Plaster And Stucco Worker Name Role Phone Amanda Siegel MD Primary Care Provider [phone] Reason for Visit * Reason Onset Date Comments Other 07/22/2010 referral Encounter Details Date Type Department Care Team (Late st Contact Info) Description 07/22/2010 Telephone [facility] Neurosurgery - [address] [address] Maldonado Mcnally MD [address] [place] [address] [address] [place] [address] Other (referral) Social History Tobacco Use Types Packs/Day Years [...] Telephone Encounter - Rik Ward RN - 07/28/2010 1329 EDT Faxing an RX-rik * Telephone Encounter - Maldonado Mcnally MD - 07/28/2010 1204 EDT Please send prescription for range of motion, strengthening and stretching of limbs (two times a week for 8 weeks). Thanks. * Telephone Encounter - Rik Ward RN - 07/28/2010 0921 EDT Spoke with a family member who was angry that the pt had not been set up------[facility] office had rec'd the referral ) and cancelled the appointment because there was not a specific plan on the referral--------will review with Dr. Mcnally as to what he feels Radha needs for PT and will send another req. [facility] Physical therapy fax---------[phone] * Telephone Encounter - Maldonado Mcnally MD - 07/22/2010 1838 EDT Script was mailed to [facility]. (in [facility])If it has not arrived there, I can send another one. * Telephone Encounter - Vesta Grimes - 07/22/2010 1156 EDT Pt very upset because she hasn't not gotten a referral from Dr. Mcnally to go to physical therapy and it has been 1 month. Can we do something? documented in this encounter Plan of Treatment Not on file documented as of this encounter Visit Diagnoses Not on filedocumented in this encounter Care Teams Plaster And Stucco Worker Relationship Specialty Start Date End Date Amanda Siegel MD [address] [place] [address] PCP - General 08/04/09 12/25/12 documented as of this encounter
--- OUTSIDE RECORDS SUMMARY | 2024-03-28 11:13 | XMS_ITS | Encounter Summary ---
Author Organization [facility] Address [address] [place] [address] Care Team Providers Care Stope Miner Name Role Phone Amanda Siegel MD Primary Care Provider [phone] Reason for Referral * Consult (Routine) - Closed Specialty Diagnoses / Procedures Referred By Mari perez Referred To Contact Neurology Diagnoses Migraine, unspecified, with intractable migraine, so stated, without mention of status migrainosus Maldonado Mcnally MD Phone: tel: fax: Gianluca Strong MD PhD [address] [place] [phone] Phone: tel: fax: Referral ID Status Reason Start Date Expiration Date V isits Requested Visits Authorized [id number] Closed Specialty Services Required 07/01/2010 1 1 Question Answer Reason for Request: Intractable migraines Reason for Visit * Reason Comments Numbness Feet, legs and head Encounter Details Date Type Department Care Team (Late st Contact Info) Description 07/01/2010 13:00 EST Office Visit [facility] Neurology - [address] [address] Maldonado Mcnally MD [address] [place] [phone] Numbness and tingling (Primary Dx); Migraine NOS/intractable Social History Tobacco Use Types Packs/Day Years [...] Sign Reading Time Taken Comments Blood Pressure 112/72 07/01/2010 1241 EST Pulse 84 07/01/2010 1241 EST Temperature - - Respiratory Rate 16 07/01/2010 1241 EST Oxygen Saturation - - Inhaled Oxygen Concentration - - Weight 73.9 kg (163 lb) 07/01/2010 1241 EST Height 157.5 cm (5' 2) 07/01/2010 1241 EST Body Mass Index 29.81 07/01/2010 1241 EST documented in this encounter Ordered Prescriptions Prescription Sig Dispense Quantity Refills Last Filled Start Date End Date levetiracetam (KEPPRA) 250 mg tablet Take 1 Tab by mouth 2 times daily for 30 days. 60 Tab 3 07/01/2010 07/31/2010 documented in this encounter Progress Notes * Maldonado Mcnally MD - 07/01/2010 1324 EST This office note has been dictated. documented in this encounter Procedure Notes * Inpatient, Physician - 07/07/2010 1238 ESTAssociated Order(s): PATHOLOGY - SCANNED * Inpatient, Physician - 07/02/2010 1133 ESTAssociated Order(s): PATHOLOGY - SCANNED documented in this encounter Consult Notes * Maldonado Mcnally MD - 07/23/2010 0968 EDT NEUROLOGY HEALTH CARE SERVICE CONSULTATION - 07/01/2010 PROBLEM 2: Numbness and pain in feet. 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 Dr Amanda Siegel of [place], [place] is her family physician. She attended with her mother. CHIEF COMPLAINT: I am here for numbness and pain in my feet. HISTORY OF PRESENT ILLNESS: The patient notes that sometime in March of last year, without any antecedent illness or injury, she developed the insidious onset of numbness with tingling and some discomfort in both feet simultaneously. The symptoms have slowly progressed and she now has pain in her feet that sometimes interferes with her walking and keeps her awake. She apparently has been triedon several medications including gabapentin 600 mg 3 times a day that gave her chest pain, pregabalin in an unknown dose that made her ugly and amitriptyline 100 mg at bedtime that was not effective. She reports that her balance is not as good and she has had several falls because she cannot tell what she is stepping on with her feet. She believes the strength in her feet and legs has decreased, because they feel like rubber. She,however, can walk independently. She has no symptoms in the hands. She was evaluated by a neurologist in [facility] by the name of Dr Dalton Lema, who saw her twice, once in early April and once again later, and did some electrophysiological testing and a skin biopsy from her right foot and right upper thigh. She also had some blood tests under his direction. She saw him last perhaps in early May this year but is not sure what exactly his diagnosis was that he gave her. PAST MEDICAL HISTORY: Asthma since 2008. PAST SURGICAL HISTORY: DRYWALL TAPER shunt at for congenital hydrocephalus, revision of DRYWALL TAPER shunt at age 1, a second revision of DRYWALL TAPER shunt because of malfunction in 11/2009 and a third revision on 01/02/2010 because of shunt malfunction again. 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 REVIEW OF SYSTEMS: No fever, chills or change in body weight; no visual disturbance and she uses glasses, no ear, nose or throat problem, no chest pain or palpitations, no bowel disturbance, some frequency of urination but no incontinence, no muscle or joint pain or swelling, no other neurological s ymptoms, no shortness of breath or cough except when she has a bout of asthma, no increased thirst or temperature intolerance, no bleeding gums or swollen glands, no skin rash, no sexual dysfunction,no anxiety or depression, no sleep disturbance. MEDICATIONS: Proventil inhaler 2 puffs three times daily p.r.n. Klonopin 0.5 mg twice daily. Nexium 40 mg twice daily. Glucophage 500 mg twice daily (she is not sure why she is taking this oral hypoglycemic agent). Multivitamin with minerals one tablet daily. Phenergan 25 mg 4 times daily p.r.n. Tramadol 50 mg q.8 h. p.r.n. ALLERGIES: SULFONAMIDES that produced swelling, IBUPROFEN that produced itching and nausea, CEPHALEXIN that produced itching, NITROFURAZONE that produced an unknown reaction, TOPAMAX that increased her headaches, ROFECOXIB that produced an unknown reaction, MACROBID that produced itching, and VIOXXthat produced an unknown reaction. SOCIAL HISTORY: Nonsmoker, nondrinker, does not have caffeinated drinks, lives with her . FAMILY HISTORY: Father, Vivek, alive at age 58 and has emphysema, mother, Milagros, age 53, has protein C deficiency and GERD and has several blood clots in the leg, the patient has no siblings and has no children. OBJECTIVE: Pleasant, overweight, talkative female whose blood pressure was 112/72 mm, pulse was 80 per minute and regular, respirations were 16 per minute and regular. Height was 5 feet 2 inches and weight was 163 pounds with clothes and shoes. There were no carotid bruits audible. Pain rating toolscore was 8/10 with pain reported in the feet. Heart showed S1 and S2 with no murmurs, clicks or gallops. Lungs were clear to auscultation. Abdomen was obese, benign, nontender with good bowel sounds. Extremities showed no cyanosis, clubbing or edema. Mental status testing showed that she was alert and oriented with good fund of knowledge, memory, recall, calculations, abstractability, judgment, comprehension, speech and language functions. Cranial nerve exam showed pupils that were 3 mm in diameter and reacted to light and accommodation,fundi showed good discs and blood vessels, visual kingston are full to confrontation, extraocular movements were complete without nystagmus, facial sensations were normal to light touch, face was symmetrical and strong, hearing was normal to finger rub, and strength of uvula, palate, tongue, neck flexors, neck extensors, sternocleidomastoids and trapezii was normal. Motor exam showed good muscle tone, power and bulk in the limbs except for subtle weakness of ankleplantar flexors bilaterally at MRC 5-/5. Reflexes were 2.5+ in the limbs, but 2+ at ankles and the plantars were flexor bilaterally. Sensory examination was normal to light touch, but she had a glove and stocking gradient to cold upto the metacarpophalangeal joints and middle of the legs; vibration was mildly impaired at the index fingers at 8 seconds and moderately at the toes at 17 seconds; position sensation was normal. Coordination testing showed no ataxia in the limbs. Stance was possible on a narrow base and Romberg sign was negative. Casual gait was unremarkable. She could walk on her toes and heels, but had moderate difficulty with tandem walking. LABORATORY DATA: I reviewed her labs from the past in December 2008 that showed normal electrolytes, BUN, creatinine, CBC with differential count. 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 The etiology of his polyneuropathy is unclear, but the patient is taking Glucophage, which is meant to treat diabetes and I wonder whether she has not been determined to be a mild diabetic, although she is not sure of this. She also stated to me that she has not been taking the Glucophage for the last month. In any case, she needs to be investigated for likely treatable causes of neuropathy, which I will undertake as below. We will have her sign a medical release form today to send to Dr Dalton Lema to have him send us copies of his evaluation, test results, including electrophysiological studies and skin biopsy report. She also has significant intermittent headaches since the age of 13 or so, that by description appear to be consistent with migraine. I will arrange for her to have a consultation by Dr Gianluca Strong in the headache clinic here for the same. PLAN: 1. Diagnostic. a. Blood for B12, B1, B6, folate, T4, TSH, sed rate, C-reactive protein, hemoglobin A1c, Lyme antibody test, angiotensin converting enzyme level, serum immunofixation. b. Spot urine for Bence-Breaux protein. 2. Therapeutic Keppra as below. 3. Return to clinic here in two months. Prescription given Keppra 250 mg at bedtime for a week, then increasing to 250 mg twice daily (#60, refill x3). Electronically Signed by Maldonado Mcnally MD 07/23/2010 09:34 Maldonado Mcnally MD - Maldonado Mcnally MD - RF Job ID: Doc ID: [id number] Ext Doc ID: [id number] cc: MD Ben Grey MD documented in this encounter Plan of Treatment Scheduled Referrals Name Type Priority Associated Diagnoses Orde r Schedule AMB CONSULT NEUROLOGY Outpatient Referral Routine Migraine NOS/intractable Ordered: 07/01/2010 documented as of this encounter Procedures Procedure Name Priority Date/Time Associated Diagnosis Comments PATHOLOGY - SCANNED 07/07/2010 1 2:38 EST PATHOLOGY - SCANNED 07/02/2010 1 1:33 EST URINE MONOCLONAL PROTEIN STUDY (UPEP WITH IMMUNOTYPING) Routine 07/01/2010 14:15 EST Numbness and tingling THIAMIN (VITAMIN B1), WB Routine 07/01/2010 14:14 EST Numbness and tingling LYME AB Routine 07/01/2010 14:14 EST Numbness and tingling GLIADIN (DEAMIDATED) AB PANEL Routine 07/01/2010 14:14 EST Numbness and tingling SED RATE Routine 07/01/2010 14:14 EST Numbness and tingling COMPLETE BLOOD COUNT AND DIFFERENTIAL Routine 07/01/2010 14:14 EST Numbness and tingling ANGIOTENSIN CONVERTING ENZYME (GAMALIEL) Routine 07/01/2010 14:14 EST Numbness and tingling SPEP WITH IMMUNOTYPING Routine 1 14:14 EST Numbness and tingling IMMUNOGLOBULINS Routine 07/01/2010 14:14 EST Numbness and tingling C REACTIVE PROTEIN Routine 07/01/2010 14 :14 EST Numbness and tingling TSH Routine 07/01/2010 14:14 EST Numbness and tingling T4 FREE Routine 07/01/2010 14:14 EST Numbness and tingling PYRIDOXAL 5 PHOSPHATE (PLP), PLASMA Routine 07/01/2010 14:14 EST Numbness and tingling HEMOGLOBIN A1C Routine 07/01/2010 14:14 EST Numbness and tingling FOLATE Routine 07/01/2010 14:14 EST Numbness and tingling VITAMIN B12 Routine 07/01/2010 14:14 EST Numbness and tingling COMPREHENSIVE METABOLIC PANEL (CMP) Routine 07/01/2010 14:14 EST Numbness and tingling documented in this encounter Results * PATHOLOGY - SCANNED (07/07/2010 12:38 EST) 07/07/2010 12:3 8 EST Narrative Procedure Note Inpatient, Physician - 07/07/2010 12:38 EST Physician Inpatient MD LAB INFO SERVICE AND SUPP ORT & PHONE RESULT Final Result POINT OF CARE * PATHOLOGY - SCANNED (07/02/2010 11:33 EST) 07/02/2010 11:3 3 EST Narrative Procedure Note Inpatient, Physician - 07/02/2010 11:33 EST Physician Inpatient MD LAB INFO SERVICE AND SUPP ORT & PHONE RESULT Final Result * BENCE BREAUX,URINE RANDOM (07/01/2010 14:15 EST) Tot Prot,Ur Random <5 mg/dl [facility] Albumin, Urine Sample quantity insufficient for testing. Credit Issued % [facility] Globulins, Urine Sample quantity insufficient for testing. Credit Issued % [facility] Comments Sample quantity insufficient for testing. Credit Issued [facility] Immunofixatio n,Urine Sample quantity insufficient for testing. Credit Issued [facility] Urine specimen (specimen) 07/01/2010 14:15 EST 07/01/2010 14:17 EST Maldonado Mcnally MD URINALYSIS ORDERABLES Final Resu lt Performing Organization Address [facility] de Phone Number [facility] [address] [place] [address] * HEMOGLOBIN A1C (07/01/2010 14:14 EST) Hemoglobin A1C 5.3 % KATLYN [facility] Comment: Reference Range: <5.7% Normal 5.7-6.4% Increased risk for diabetes =>6.5% Diagnostic for diabetes (if confirmed) ?? The A1c goal for non adults in general is <7%. ?? The A1c goal for selected patients may be significantly lower than 7% if this can be achieved without significant hypoglycemia or other adverse effects of treatment. Est Avg Glucose 105 mg/dl NORI PARK[facility] Comment:eAG represents the A 1c result expressed as average glucose in mg/dl. Blood specimen (specimen) 07/01/2010 14:14 EST 07/01/2010 14:16 EST Maldonado Mcnally MD CHEMISTRY & BLOOD GAS ORDERABLES Final Result Performing Organization Address [facility] de Phone Number [facility] [address] [place] [address] * T4 FREE (07/01/2010 14:14 EST) Free T4 1.2 0.8 - 1.8 ng/dL [facility] Blood specimen (specimen) 07/01/2010 14:14 EST 07/01/2010 14:16 EST Maldonado Mcnally MD CHEMISTRY & BLOOD GAS ORDERABLES Final Result Performing Organization Address [facility] Co de Phone Number [facility] [address] [place] [address] * TSH (07/01/2010 14:14 EST) Pathologist [facility] TSH 1.57 0.35 - 5.00 uIU/ml [facility] Blood specimen (specimen) 07/01/2010 14:14 EST 07/01/2010 14:16 EST Maldonado Mcnally MD CHEMISTRY & BLOOD GAS ORDERABLES Final Result Performing Organization Address [facility] Phone Number [facility] [address] [place] [address] * (ABNORMAL) COMPREHENSIVE METABOLIC PANEL (CMP) (07/01/2010 14:14 EST) Pathologist [facility] Potassium 4.2 3.5 - 5.0 mEq/L [facility] Sodium 144 136 - 145 mEq/L [facility] Chloride 103 96 - 110 mEq/L [facility] CO2 29 24 - 32 mEq/L [facility] Total Alkaline Phosphatase 125 38 - 126 U/L [facility] Bilirubin, Total <0.5 0.2 - 1.3 mg/dl [facility] AST 28 15 - 46 U/L [facility] ALT 56(H) 9 - 52 U/L [facility] Albumin 4.7 3.4 - 4.9 g/dl [facility] Total Protein 7.5 6.5 - 8.3 g/dl [facility] Creatinine 0.81 0.7 - 1.5 mg/dl [facility] GFR, Calculated >60 ml/min/1.7 3m2 [facility] BUN 14 10 - 26 mg/dl [facility] Calcium 9.7 8.5 - 10.5 mg/dl [facility] Calculated Calcium 9.4 8.5 - 10.5 mg/dl [facility] Glucose, Serum 84 70 - 100 mg/dl [facility] Fasting? No [facility] Blood specimen (specimen) 07/01/2010 14:14 EST 07/01/2010 14:16 EST Maldonado Mcnally MD CHEMISTRY & BLOOD GAS ORDERABLES Final Result [facility] [address] [place] [address] * HEMAGRAM AND DIFFERENTIAL (07/01/2010 14:14 EST) WBC 7.96 4.0 - 12.4 K/cmm [facility] RBC 4.86 3.86 - 5.04 M/cmm [facility] Hemoglobin 14.7 11.6 - 15.2 gm/dl [facility] HCT 43.7 34.9 - 44.4 % [facility] MCV 90 81 - 98 fl [facility] MCH 30.3 26.7 - 33.3 pg [facility] MCHC 33.7 32.1 - 35.9 gm/dl [facility] PLT 271 141 - 320 K/cmm [facility] RDW-CV 13.1 11.7 - 14.6 % [facility] % Neutrophils 54.7 45.5 - 79.7 % [facility] % Lymphocytes 35.1 15.0 - 46.8 % [facility] % Monocytes 7.0 1.8 - 12.0 % [facility] % Eosinophils 2.8 0.6 - 6.9 % [facility] % Basophils 0.4 0.2 - 1.4 % [facility] ABS Neutrophils 4.35 2.20 - 8.85 K/cmm [facility] ABS Lymphs 2.79 1.09 - 3.30 K/cmm [facility] ABS Monocytes 0.56 0.1 - 0.8 K/cmm [facility] ABS Eosinophils 0.22 0.03 - 0.61 K/cmm [facility] ABS Basophils 0.03 0.01 - 0.11 K/cmm [facility] Type of Diff: Automated ANGIE [facility] Blood specimen (specimen) 07/01/2010 14:14 EST 07/01/2010 14:16 EST us Maldonado Mcnally MD PACKAGES & DNA PROBE ORDERABLES Final Result [facility] [address] [place] [address] * GLIADIN ANTIBODY, EVALUATION (07/01/2010 14:14 EST) Gliadin IgA Ab 2.4Unit: U -- REFERENCE VALUE -- ? <20.0 (Negative) ? 20.0-30.0 (Weak Positive) ? >30.0 (Positive) ? [facility] Gliadin IgG Ab <1.0Unit: U -- REFERENCE VALUE -- ? <20.0 (Negative) ? 20.0-30.0 (Weak Positive) ? >30.0 (Positive) ? Performed or Referred by: [facility] Dpt of Lab Med and Path, [address] ? [place] [address], Lab Dir: Carson Juarez III, ? MD ? [facility] Blood specimen (specimen) 07/01/2010 14:14 EST 07/01/2010 14:16 EST us Maldonado Mcnally MD IMMUNOLOGY AND SEROLOGY ORDERABL ES Final Result [facility] [address] [place] [address] * C-REACTIVE PROTEIN (07/01/2010 14:14 EST) C-Reactive Protein 0.7 <1.0 mg/dl [facility] Blood specimen (specimen) 07/01/2010 14:14 EST 07/01/2010 14:16 EST us Maldonado Mcnally MD CHEMISTRY & BLOOD GAS ORDERABLES Final Result Performing Organization Address [facility] Co de Phone Number [facility] [address] [place] [address] * SED. RATE:WESTERGREN (07/01/2010 14:14 EST) Pathologist [facility] Sed. Rate Westergren 8 0 - 20 mm/hr [facility] Blood specimen (specimen) 07/01/2010 14:14 EST 07/01/2010 14:16 EST Maldonado Mcnally MD HEMATOLOGY & PF4 ORDERABLES Shaista l Result Performing Organization Address [facility] de Phone Number [facility] [address] [place] [address] * VITAMIN B6 (07/01/2010 14:14 EST) Pathologist [facility] Pyridoxal 5 Phosphate 20Reference range: 5 to 50 Unit: mcg/L Performed or Referred by: [facility] Dpt of Lab Med and Path, [address] ?? [place] [address], Lab Dir: MD [facility] Blood specimen (specimen) 07/01/2010 14:14 EST 07/01/2010 14:16 EST us Maldonado Mcnally MD CHEMISTRY & BLOOD GAS ORDERABLES Final Result Performing Organization Address [facility] de Phone Number [facility] [address] [place] [address] * VITAMIN B1, THIAMINE (07/01/2010 14:14 EST) Pathologist [facility] Thiamine 89Reference range: 80 to 150 Unit: nmol/L Performed or Referred by: [facility] Dpt of Lab Med and Path, [address] ?? [place] [address], Lab Dir: MD [facility] III [facility] Blood specimen (specimen) 07/01/2010 14:14 EST 07/01/2010 14:16 EST us Maldonado Mcnally MD CHEMISTRY & BLOOD GAS ORDERABLES Final Result Performing Organization Address [facility] de Phone Number [facility] [address] [place] [address] * VITAMIN B12 (07/01/2010 14:14 EST) Vitamin B-12 533 211 - 911 pg/ml [facility] Blood specimen (specimen) 07/01/2010 14:14 EST 07/01/2010 14:16 EST us Maldonado Mcnally MD CHEMISTRY & BLOOD GAS ORDERABLES Final Result Performing Organization Address [facility] de Phone Number [facility] [address] [place] [address] * FOLATE (07/01/2010 14:14 EST) Pathologist [facility] Folate 21.6 ng/mL [facility] Comment: Deficient: ??Less than 3.4 ng/mL Indeterminate: ??3.4-5.4 ng/mL Normal: ??Greater than 5.4 ng/mL Blood specimen (specimen) 07/01/2010 14:14 EST 07/01/2010 14:16 EST us Maldonado Mcnally MD CHEMISTRY & BLOOD GAS ORDERABLES Final Result Performing Organization Address [facility] de Phone Number [facility] [address] [place] [address] * LYME AB (07/01/2010 14:14 EST) Lyme AB Interpretation : Negative Reference Range: Negative [facility] Blood specimen (specimen) 07/01/2010 14:14 EST 07/01/2010 14:16 EST us Maldonado Mcnally MD IMMUNOLOGY AND SEROLOGY ORDERABL ES Final Result Performing Organization Address [facility] de Phone Number [facility] [address] [place] [address] * (ABNORMAL) IMMUNOGLOBULINS (07/01/2010 14:14 EST) Pathologist [facility] IgG 894 751 - 1560 mg/dl [facility] IgA 110 82 - 453 mg/dl [facility] IgM 369(H) 46 - 304 mg/dl [facility] Blood specimen (specimen) 07/01/2010 14:14 EST 07/01/2010 14:16 EST Maldonado Mcnally MD CHEMISTRY & BLOOD GAS ORDERABLES Final Result Performing Organization Address [facility]/ZIP Co de Phone Number [facility] [address] [place] [address] * IMMUNOFIXATION/SPEP (07/01/2010 14:14 EST) Pathologist [facility] Total Protein 7.5 6.5 - 8.3 g/dl [facility] Albumin, SPEP 53.4 47.6 - 61.9 % [facility] Alpha-1 % 3.8 1.4 - 4.6 % [facility] Alpha 2, SPEP 11.4 7.3 - 13.9 % [facility] Beta, SPEP 17.0 10.9 - 19.1 % [facility] Gamma, SPEP 14.4 9.5 - 24.8 % [facility] Comments, SPEP No apparent monoclonal protein on serum electrophoresis . See Pathology Scanned Report in [facility] Immunofixatio n,serum Interpretation: Negative for monoclonal immunoglobulins . Interpreted by: Corona Pinedo MD, PhD Reference Range: Negative for monoclonal immunoglobulins . [facility] Blood specimen (specimen) 07/01/2010 14:14 EST 07/01/2010 14:16 EST Maldonado Mcnally MD CHEMISTRY & BLOOD GAS ORDERABLES Final Result Performing Organization Address [facility]/ZIP Co de Phone Number [facility] [address] [place] [address] * ANGIOTENSIN CONVERTING ENZYME (GAMALIEL) (07/01/2010 14:14 EST) Angiotensin Converting Enzyme 47Reference range: 8 to 53 Unit: U/L The use of angiotensin converting enzyme (GAMALIEL)-inhibitin g ? antihypertensiv e drugs will cause decreased GAMALIEL values. ? Performed or Referred by: [facility] Dpt of Lab Med and Path, [address] ? [place] [address], Lab Dir: Carson Juarez III, ? MD ? [facility] Blood specimen (specimen) 07/01/2010 14:14 EST 07/01/2010 14:16 EST us Maldonado Mcnally MD CHEMISTRY & BLOOD GAS ORDERABLES Final Result Performing Organization Address City/State/[facility] Co de Phone Number [facility] [address] [place] [address] documented in this encounter Visit Diagnoses Diagnosis Numbness and tingling- Primary Disturbance of skin sensation Migraine, unspecified, with intractable migraine, so stated, without mention of status migrainosus documented in this encounter Historical Medications * This list may reflect changes made after this encounter. Multivitamins with Minerals Tab Take 1 Tab by mouth daily. 12/27/2012 added in this encounter Care Teams Stope Miner Relationship Specialty Start Date End Date Amanda Siegel MD [address] [place] [address] PCP - General 08/04/09 12/25/12 documented as of this encounter
--- OUTSIDE RECORDS SUMMARY | 2024-03-28 11:13 | XMS_ITS | Encounter Summary ---
Author Organization [facility] Address [address] [place] [address] Care Team Providers Care Juice Tester Name Role Phone Amanda Siegel MD Primary Care Provider [phone] Encounter Details Date Type Department Care Team (Late st Contact Info) Description 02/02/2011 Results Only Imaging [facility] [phone] Amina Medina MD [address] [place] [phone] Social History Tobacco Use Types Packs/Day Years [...] Procedure Name Priority Date/Time Associated Diagnosis Comments MR BRAIN AND C-SPINE WO CONTRAST 03/02/2011 20:14 EDT documented in this encounter Results * MR BRAIN AND C-SPINE WO CONTRAST (03/02/2011 20:14 EDT) Anatomical Region Laterality Modality Other 03/02/2011 20:1 4 EDT 03/03/2011 9:06 EDT Narrative 03/03/2011 9:06 EDT MRI of the brain and cervical spine March 02, 2011 at 1824. History: Parasthesias and hyperreflexia, evaluate for demyelinating disease. Comparison: CT of January 01, 2009. Technique: Brain: Sagittal T1, sagittal T2 FLAIR, axial T2, axial T2 FLAIR, axial gradient, axial T1, and diffusion-weighted images of the brain were acquired. Cervical spine: Sagittal T2, sagittal T1, sagittal proton density, axial T2, and sagittal T2 oblique images of the cervical spine were acquired. 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 There is artifact associated with the shunt reservoir in the right occipital scalp. A shunt catheter traverses the right parietal lobe and terminates near the midline. The posterior fossa appears stable when compared to the prior CT. On the sagittal images the corpus callosum is present but appears markedly thinned. On the FLAIR images there are a few small areas of T2 prolongation within the periventricular white matter which are nonspecific. These a few do appear somewhat oriented along the course of the perivascular spaces, for example on image 16 of series 6. The diffusion weighted images demonstrate no evidence of restricted diffusion, although again there is artifact which distorts this series. The gradient sequence demonstrates no evidence of parenchymal hemorrhage. The orbits appear unremarkable. There is a small mucus retention cyst within the left maxillary sinus. The paranasal sinuses and mastoids are otherwise clear. Cervical spine: Signal within the cervical spinal cord is normal. The cervical vertebral bodies are normally aligned and disc space heights are maintained. There is no focal herniation or central canal stenosis in the cervical spine and there is no evidence of foraminal impingement. The prevertebral soft tissues appear unremarkable. Impression: 1. 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 2. A few small foci of nonspecific T2 prolongation within the periventricular white matter. Differential considerations include demyelinating disease in addition to migraine headaches, vasculitis, or microvascular disease associated with smoking or diabetes. 3. Unremarkable examination of the cervical spine. Procedure Note 03/03/2011 MRI of the brain and cervical spine March 02, 2011 at 1824. History: Parasthesias and hyperreflexia, evaluate for demyelinating disease. Comparison: CT of January 01, 2009. Technique: Brain: Sagittal T1, sagittal T2 FLAIR, axial T2, axial T2 FLAIR, axial gradient, axial T1, and diffusion-weighted images of the brain were acquired. Cervical spine: Sagittal T2, sagittal T1, sagittal proton density, axial T2, and sagittal T2 oblique images of the cervical spine were acquired. 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 There is artifact associated with the shunt reservoir in the right occipital scalp. A shunt catheter traverses the right parietal lobe and terminates near the midline. The posterior fossa appears stable when compared to the prior CT. On the sagittal images the corpus callosum is present but appears markedly thinned. On the FLAIR images there are a few small areas of T2 prolongation within the periventricular white matter which are nonspecific. These a few do appear somewhat oriented along the course of the perivascular spaces, for example on image 16 of series 6. The diffusion weighted images demonstrate no evidence of restricted diffusion, although again there is artifact which distorts this series. The gradient sequence demonstrates no evidence of parenchymal hemorrhage. The orbits appear unremarkable. There is a small mucus retention cyst within the left maxillary sinus. The paranasal sinuses and mastoids are otherwise clear. Cervical spine: Signal within the cervical spinal cord is normal. The cervical vertebral bodies are normally aligned and disc space heights are maintained. There is no focal herniation or central canal stenosis in the cervical spine and there is no evidence of foraminal impingement. The prevertebral soft tissues appear unremarkable. Impression: 1. 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 2. A few small foci of nonspecific T2 prolongation within the periventricular white matter. Differential considerations include demyelinating disease in addition to migraine headaches, vasculitis, or microvascular disease associated with smoking or diabetes. 3. Unremarkable examination of the cervical spine. Amina Medina MD [facility] MRI ORDERABLES Final R esult documented in this encounter Visit Diagnoses Not on filedocumented in this encounter Care Teams Juice Tester Relationship Specialty Start Date End Date Amanda Siegel MD [address] [place] [address] PCP - General 08/04/09 12/25/12 documented as of this encounter
--- OUTSIDE RECORDS SUMMARY | 2024-03-28 11:13 | XMS_ITS | Encounter Summary ---
Author Organization [facility] Address [address] [place] [address] Care Team Providers Care Machine Joint Cutter Name Role Phone Amanda Siegel MD Primary Care Provider Reason for Referral * Radiology Services (Routine) - Closed Specialty Diagnoses / Procedures Referred By Mari t Referred To Contact Diagnoses S/P BUDGET CONSULTANT shunt Procedures CT HEAD Ben Jama MD Phone: tel: fax: Referral ID Status Reason Start Date Expiration Date Visits Re quested Visits Authorized [id number] Closed 03/18/2010 1 1 * Consult (Routine) - Closed Specialty Diagnoses / Procedures Referred By Mari t Referred To Contact Diagnoses Unspecified hereditary and idiopathic peripheral neuropathy Ben Jama MD Phone: tel: fax: Maldonado Mcnally MD [address] [place] [address], [address] [place] [address] Phone: tel: fax: Referral ID Status Reason Start Date Expiration Date V isits Requested Visits Authorized [id number] Closed Specialty Services Required 03/18/2010 1 1 Question Answer Reason for Request: peripheral neuropathy Comments Has painful LE neuropathy, FELDER in [facility] but pt feels that not enough being done. Please consult about FELDER and tx recommendations. See note of Mar 2010. * Consult (Routine) - Closed Specialty Diagnoses / Procedures Referred By Contac t Referred To Contact Diagnoses S/P BUDGET CONSULTANT shunt Ben Jama MD Phone: tel: fax: Дмитрий Mccartney MD [address] [place] [address] [address] Phone: tel: fax: Referral ID Status Reason Start Date Expiration Date V isits Requested Visits Authorized [id number] Closed Specialty Services Required 03/18/2010 1 1 Question Answer Reason for Request: BUDGET CONSULTANT shunt and Dandy Walker, but episodic numbness for several months, involving the head, usually brief, daily; ? seizure disorder Comments Please see my office note of Mar 2010 Reason for Visit * Reason Comments Headache Encounter Details Date Type Department Care Team (Late st Contact Info) Description 03/18/2010 11:15 EST Office Visit [facility] Neurosurgery - [address] [address] Ben Jama MD [address] [place] [address], [address] [phone] S/P BUDGET CONSULTANT shunt (Primary Dx); Unspecified hereditary and idiopathic peripheral neuropathy Social History Tobacco Use Types Packs/Day Years [...] Sign Reading Time Taken Comments Blood Pressure 112/80 03/18/2010 1114 EST Pulse 85 03/18/2010 1114 EST Temperature - - Respiratory Rate 18 03/18/2010 1114 EST Oxygen Saturation - - Inhaled Oxygen Concentration - - Weight - - Height - - Body Mass Index - - documented in this encounter Progress Notes * Ben Jama MD - 03/19/2010 1226 EST DIVISION OF NEUROSURGERY PROGRESS/FOLLOWUP NOTE - 03/18/2010 SUBJECTIVE: Radha Moya returns to the office for an evaluation of several symptoms. I had last seen her in January 2010 following a shunt malfunction. 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 Her ventricles do expand when she has a shunt malfunction. This was a proximal disconnection just beneath the fragile and old ventricular catheter. She was seen in September in this service by Luisa Mckay with complaints of head pain. She is concerned about the magnets on the lozano of changing rooms. However, her shunt was found still to be programmed at 1.0. X-rays did not show any shunt disconnection. She was complaining of some pain around the shunt. Since then, she has been seen in the emergency room in [facility] several times, mostly without CT scans, for headache. Getting into some detail with her about this, she describes a primary symptom of numbness throughout her entire head when she is bending forward or even at other times without clear factors of exacerbation. These occur suddenly and usually last a few minutes. When they are longer lasting, suchas in the range of an hour, she has gone to the local emergency room. I believe that that is when we have been called about headaches. She does not describe any of these sensations extending into thearms or legs at that time and neither is there a loss of consciousness. However, she does have somepainful numbness in the lower extremities and she and her family give me a history of a neurologic workup by a neurologist in [facility]. It would seem that a cervical nerve and muscle biopsy was done and that she was diagnosed with peripheral neuropathy, but she cannot give me any details on this. She said that her feet and calves are numb and painful. OBJECTIVE: On examination today, she is awake, alert and conversant. Her extraocular movements are full and conjugate with no nystagmus. Her face and tongue moved normally and symmetrically. She has no upper extremity weakness. Her reflexes are normal in the upper extremities and at the knees. She is relaxed and comfortable today and is not reporting a headache. I reviewed the previous CT scan from last year, as well as the shunt x-rays. ASSESSMENT AND PLAN: I then had a long discussion with Radha and her family about these complaints. To begin with, I do not think that the complaints of numbness suggest shunt malfunction. The headaches also seemed to be so intermittent as to not likely represent shunt malfunction. However, if she does have a persistent headache lasting perhaps several days, I did encourage her to seek followup. For now, we will do a CT scan to check her ventricular size. With regard to any other complaints, my greatest concern would be the possibility of seizure. Although there are some mechanical exacerbation of the symptoms, for the most part, they appear rather spontaneous and are occurring daily. I will ask Dr Mccartney, one of our epileptologists, to consult on this matter. I would choose not to treat her empirically at this time. I explained this to her family. Further, with regard to the peripheral neuropathy, she and her family were seeking some additional opinions about this, in particular, whether anything can be done to treat this. I would like her to consult with Dr Maldonado Mcnally of neurology as well. I think that the rest of the headache complaints can be managed symptomatically and it would certainly be reasonable for her to be on a chronic pain medication with other medication for exacerbations. Perhaps this falls in the chronic headache category which Dr Strong would be of some help. Electronically Signed by Ben Jama MD 03/19/2010 12:25 Ben Jama MD Professor [facility] Division of Neurological Surgery - Ben Jama MD - Job ID: SM Doc ID: [id number] Ext Doc ID: [id number] cc: Amanda Siegel MD * Ben Jama MD - 03/18/2010 1154 EST SUBJECTIVE: Radha Moya returns to the office for an evaluation of several symptoms. I had last seen her in January 2010 following a shunt malfunction. 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 Her ventricles do expand when she has a shunt malfunction. This was a proximal disconnection just beneath the fragile and old ventricular catheter. She was seen in September in this service by Luisa Mckay with complaints of head pain. She is concerned about the magnets on the lozano of changing rooms. However, her shunt was found still to be programmed at 1.0. X-rays did not show any shunt disconnection. She was complaining of some pain around the shunt. Since then, she has been seen in the emergency room in [facility] several times, mostly without CT scans, for headache. Getting into some detail with her about this, she describes a primary symptom of numbness throughout her entire head when she is bending forward or even at other times without clear factors of exacerbation. These occur suddenly and usually last a few minutes. When they are longer lasting, suchas in the range of an hour, she has gone to the local emergency room. I believe that that is when we have been called about headaches. She does not describe any of these sensations extending into thearms or legs at that time and neither is there a loss of consciousness. However, she does have somepainful numbness in the lower extremities and she and her family give me a history of a neurologic workup by a neurologist in [facility]. It would seem that a cervical nerve and muscle biopsy was done and that she was diagnosed with peripheral neuropathy, but she cannot give me any details on this. She said that her feet and calves are numb and painful. OBJECTIVE: On examination today, she is awake, alert and conversant. Her extraocular movements are full and conjugate with no nystagmus. Her face and tongue moved normally and symmetrically. She has no upper extremity weakness. Her reflexes are normal in the upper extremities and at the knees. She is relaxed and comfortable today and is not reporting a headache. I reviewed the previous CT scan from last year, as well as the shunt x-rays. ASSESSMENT AND PLAN: I then had a long discussion with Radha and her family about these complaints. To begin with, I do not think that the complaints of numbness suggest shunt malfunction. The headaches also seemed to be so intermittent as to not likely represent shunt malfunction. However, if she does have a persistent headache lasting perhaps several days, I did encourage her to seek followup. For now, we will do a CT scan to check her ventricular size. With regard to any other complaints, my greatest concern would be the possibility of seizure. Although there are some mechanical exacerbation of the symptoms, for the most part, they appear rather spontaneous and are occurring daily. I will ask Dr Mccartney, one of our epileptologists, to consult on this matter. I would choose not to treat her empirically at this time. I explained this to her family. Further, with regard to the peripheral neuropathy, she and her family were seeking some additional opinions about this, in particular, whether anything can be done to treat this. I would like her to consult with Dr Maldonado Mcnally of neurology as well. I think that the rest of the headache complaints can be managed symptomatically and it would certainly be reasonable for her to be on a chronic pain medication with other medication for exacerbations. Perhaps this falls in the chronic headache category which Dr Strong would be of some help. documented in this encounter Plan of Treatment Scheduled Orders Name Type Priority Associated Diagnoses Orde r Schedule CT HEAD Imaging Routine S/P BUDGET CONSULTANT Shunt Ordered: 03/18/2010 Scheduled Referrals Name Type Priority Associated Diagnoses Orde r Schedule AMB CONSULT NEUROLOGY Outpatient Referral Routine S/P BUDGET CONSULTANT Shunt Ordered: 03/18/2010 AMB CONSULT NEUROLOGY Outpatient Referral Routine Unspecified Hereditary and Idiopathic Peripheral Neuropathy Ordered: 03/18/2010 documented as of this encounter Visit Diagnoses Diagnosis S/P BUDGET CONSULTANT shunt- Primary Presence of cerebrospinal fluid drainage device Unspecified hereditary and idiopathic peripheral neuropathy documented in this encounter Discontinued Medications Medication Sig Discontinue Reason Start Date End Da te esomeprazole (NEXIUM) 40 mg capsule Take 40 mg by mouth 2 times daily. Error 03/18/2010 documented as of this encounter Historical Medications * This list may reflect changes made after this encounter. tramadol (ULTRAM) 50 mg tablet Take 50 mg by mouth every 8 hours as needed. 03/18/2010 added in this encounter Care Teams Machine Joint Cutter Relationship Specialty Start Date End Date Amanda Siegel MD [address] [place] [address] PCP - General 08/04/09 12/25/12 documented as of this encounter
--- OUTSIDE RECORDS SUMMARY | 2024-03-28 11:13 | XMS_ITS | Encounter Summary ---
Author Organization [facility] Address [address] [place] [address] Care Team Providers Care Cabin Agent Name Role Phone Amanda Siegel MD Primary Care Provider [phone] Reason for Visit * Reason Onset Date Comments Tingling 04/07/2010 Encounter Details Date Type Department Care Team (Late st Contact Info) Description 04/07/2010 Telephone [facility] Primary [facility] - [address] [address] Maria Elena Plunkett RN Tingling Social History Tobacco Use Types Packs/Day Years [...] Notes * Telephone Encounter - Luisa Mckay PA - 04/08/2010 [address] with Dr Jama - no ventriculmegaly, shunt appears to be functioning. Her symptoms are not likely related to the shunt. She was informed and understands. She does have an upcoming EEGand appt with Dr Mccartney, these dates and times were given to her, along with a contact number. She will contact them if symptoms worsen or persist. * Telephone Encounter - Maria Elena Plunkett RN - 04/07/2010 1349 EST Return call to patient. Patient called to report prickly, tingling sensation all over her head. Patient somewhat vague as she is cognitively limited. The sensation has been occurring everyday for about 2 weeks. It lasts for about 45 minutes and at times is accompanied by a headache. She sits tillthe sensation passes. Awaiting results from recent CT scan. Will discuss with provider. documented in this encounter Plan of Treatment Not on file documented as of this encounter Visit Diagnoses Not on filedocumented in this encounter Care Teams Cabin Agent Relationship Specialty Start Date End Date Amanda Siegel MD [address] [place] [address] PCP - General 08/04/09 12/25/12 documented as of this encounter
--- OUTSIDE RECORDS SUMMARY | 2024-03-28 11:13 | XMS_ITS | Encounter Summary ---
Author Organization [facility] Address [address] [place] [address] Care Team Providers Care Medical Management Specialist Name Role Phone Amanda Siegel MD Primary Care Provider [phone] Reason for Visit * Reason Onset Date Comments Other 10/19/2010 Encounter Details Date Type Department Care Team (Late st Contact Info) Description 10/19/2010 Telephone [facility] Neurosurgery - [address] [phone] Ben Jama MD [address] [facility], [address] [place] [address] Other Social History Tobacco Use Types Packs/Day Years [...] encounter Miscellaneous Notes * Telephone Encounter - Maria Elena Plunkett RN - 10/19/2010 9974 EDT Patient saw PCP and was diagnosed with a cold. She was advised to follow up with PCP for reevaluation if she becomes short of breath or runs a fever greater than 101. Patient verbalized understanding. * Telephone Encounter - Jennifer Ramey - 10/19/2010 9505 EDT Radha would like to speak with Neurosurg RN regarding ?s she has on shunt...has bad cold/bronchitis and wonders if that could affect her shunt. * Telephone Encounter - Jennifer Ramey - 10/19/2010 4740 EDT Radha would like to speak with Neurosurg RN regarding ?s she has on shunt....specifically documented in this encounter Plan of Treatment Not on file documented as of this encounter Visit Diagnoses Not on filedocumented in this encounter Care Teams Medical Management Specialist Relationship Specialty Start Date End Date Amanda Siegel MD [address] [place] [address] PCP - General 08/04/09 12/25/12 documented as of this encounter
--- OUTSIDE RECORDS SUMMARY | 2024-03-28 11:13 | XMS_ITS | Encounter Summary ---
Author Organization [facility] Address [address] [place] [address] Care Team Providers Care Watcher Lookout Tower Name Role Phone Nimisha Padilla MD Primary Care Provider [phone] Reason for Visit * Reason Comments Headache two day history of H A. Associated with nausea.Recently had TRADING ASSISTANT shunt revised (December 02) Encounter Details Date Type Department Care Team (Late st Contact Info) Description 12/31/2008 23:30 EDT - 01/03/2009 14:00 EDT Hospital Encounter [facility] Neurosurgery Unit [address], [place] [id number] Gianluca Brar MD [address] [facility] [address] [place] [address] Jareth Ortega MD [address] [id number] Headache; S/P TRADING ASSISTANT Shunt Discharge Disposition: Home or Self Care Social [...] Sign Reading Time Taken Comments Blood Pressure 119/65 01/03/2009 1202 EDT Pulse 91 01/03/2009 1202 EDT Temperature 37.3 ??C (99.1 ??F) 01/03/2009 1202 EDT Respiratory Rate 18 01/03/2009 1202 EDT Oxygen Saturation 96% 01/03/2009 1202 EDT Inhaled Oxygen Concentration - - Weight - - Height - - Body Mass Index - - documented in this encounter Discharge Summaries * Ben Jama MD, MD - 01/03/2009 0752 EDT Discharge Summary Chief Complaint/Reason for Admission: Headache and possible TRADING ASSISTANT shunt malfunction Principal/Final Diagnosis: TRADING ASSISTANT Shunt malfunction Principal Procedure: Proximal shunt revision on 01/02/2009 Prognosis: Good Condition at Discharge: Improved Hospital Course: Radha Moya is a 28 y.o. 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 The patient had a VPS placed at , with the distal catheter lengthened around 3y of age. The patient was admitted on 12/31/2008 with headache and a speculative diagnosis of shunt malfunction. Neurological exam findings remained as per baseline and the shunt was reprogramming to 0.5. A CT Head/ Abdomen/Pelvis and Shuntogram were performed on 12/31/2008. The opening pressure of the shunt tap showed high pressure (~25 cm) and the CT Head/Abdomen/pelvis correlated with the shunt series showed dilated ventricles, grossly unchanged compared to previous CT head, extravasation at the proximal portion of the shunt and CSF flow into the abdomen but not dispersal. There was an abdominal seroma/?CSF-delano seen. The clinical and radiographic diagnosis was shunt malfunction and on 01/02/2009 the patient underwent a shunt revision procedure, the proximal catheter was found to be disconnected and a CSF-delano was found distally. The proximal STRATA valve was connected and re-set to 1.5 and a new connector placedat the abdominal wound site. The valve was tethered to the soft tissues in three places to take tension off the connection to the proximal catheter. Discharge Summary Completed: 01/03/2009 documented in this encounter Discharge Instructions * Discharge Instructions* Jos Whitt - 01/03/2009 9:11 EDT POST- OPERATIVE INSTRUCTIONS FOR PATIENTS AFTER BRAIN SURGERY Do not engage in strenuous activity. Do not drive a vehicle. You may be a passenger. You may walk as much as you wish, but be careful not to overexert yourself. Facial swelling will usually peak on the third day after surgery. You may apply ice covered with a cloth to your area of swelling for 20 minutes at a time. Do not place ice directly onto your eyelidsbut may apply it around the area. Often patients will experience headaches or nausea following surgery. Please call our office and let us know if this lasts any length of time or is severe. You may need medicine for this or we may want to see you in the office. You may notice that you are more fatigued during your recovery. Be sure to pace yourself and nap asneeded. Your energy should return within weeks after surgery. Be patient with yourself while healing. Avoid bending over to pick things up, as this may cause a headache. If you do get a headache, lay down with your head slightly elevated (on two pillows). You may take Tylenol or your prescribed pain medication. Call if the headache does not go away. If your skin latrell or sutures were not removed before leaving the hospital, they should generallybe removed in 7-10 days, unless instructed otherwise. This can be done by our office, your Primary Care Physician???s office, or Emergency Room. Please call if you develop any redness, swelling, or increased discomfort at the incision site. Please call if you have any drainage from the wound. Do not pick at your wound. You may gently wash the area and pat dry, no scrubbing and no washcloths. Do not use hydrogen peroxide on wound. You may have been prescribed steroids which help with the inflammation after surgery. It is very important to take these exactly as directed and not stop them suddenly unless directed to do so. Continue taking steroids (Decadron, dexamethasone or prednisone) as prescribed at discharge, unlessdirected otherwise by your doctor. If you run out of medication without specifically being told to stop them, please contact our office immediately. Steroids can cause side effects such as facial flushing, water retention, swelling in your legs andfeet, agitation, anxiety, increased appetite, sleeplessness and increased heart rate. They can upset your stomach or irritate ulcers. Please call our office if you think you may be having side effects from the steroids or if you have questions. You may have been prescribed anticonvulsant medication. Some medicines require blood tests to checkthe level of medicine in your body. Take these exactly as directed. Call if you run out medicine and have not been specifically told to stop taking it. These medicines can cause fatigue, confusion, dizziness, stomach upset, fever or rash which can be serious. Please call our office or your pharmacy immediately if you experience any of these symptomsfor medical advice. Please call our office if you are having any episodes which you suspect may be a seizure such as numbness of an arm or leg, numb on one side of your face, uncontrollable twitching, a funny feeling, or ???zoning out?? where people cannot get your attention by talking to you. Follow-up visit with your surgeon???s office should be made for three to four weeks post-surgery. Please call our nurse, Oanh Spann, with any questions regarding your recovery during hours 8am to 4pm, Tuesday through Tuesday. After hours, there is always a doctor caisson worker for emergencies or go to your local hospital emergency department. Call our office at or for an appointment or if any problems such as signs of infection or above symptoms. documented in this encounter Medications at Time of Discharge albuterol (PROVENTIL HFA, VENTOLIN HFA) 90 mcg/Actuation inhaler Inhale 2 Puffs as directed 3 times daily as needed for Wheezing. 8.5gm acetaminophen (TYLENOL) 500 mg tablet Take 1,000 mg by mouth 4 times daily as needed for Pain. 06/08/2010 butalbital-aceta minophen-caffein e (FIORICET, ESGIC) 50-325-40 mg per tablet Take 1 Tab by mouth daily as needed for Headaches. 06/08/2010 citalopram (CELEXA) 20 mg tablet Take 20 mg by mouth 2 times daily. 06/08/2010 isometheptene-ac etaminophen-dich loralphenazone (MIDRIN) 325-65-100 mg per [...] Refills Last Filled Start Date End Date oxycodone (ROXICODONE) 5 mg immediate release tablet Take 1 Tab by mouth every 4 hours as needed for Pain. 60 0 01/03/2009 06/08/2010 documented in this encounter Discharge Disposition Disposition Code Departure Means Destination Home or Self Care documented in this encounter Progress Notes * Dev Jamison - 01/03/2009 1514 EDT CM DC NOTE: 01/03/09 DC w/o CM services ordered. / Sarabjit Jamison RN #[id number] * Zander Pittman CRNA - 01/03/2009 1159 EDT Anesthesia Post-op Note Short Radha Moya @ORPROCALL@ Post-op vital signs: stable No Anesthetic Complications Anesthesia sequalae: none * Archie Baez - 01/03/2009 0630 EDT Neurosurgery Progress Note Chief Complaint:Headache Subjective: Doing well, H/E improved Objective: Allergies: Sulfa (Sulfonamide Antibiotics) Ibuprofen Cephalexin Nitrofurazone Topiramate Rofecoxib Macrobid Medications: citalopram 20 mg BID omeprazole 20 mg DAILY ranitidine 300 mg QHS docusate sodium 100 mg BID Multivitamins with Minerals 1 Tab DAILY PEG 3350-Electrolytes 17 g BID amoxicillin 250 mg Q8H Vital Signs: Blood pressure 99/51, pulse 91, temperature 36.8 ??C (98.2 ??F), temperature source Tympanic, resp. rate 18, SpO2 93%. Temp Av.4 ??C (97.5 ??F) Min: 36 ??C (96.8 ??F) Max: 36.8 ??C (98.2 ??F) Pulse Av Min: 86 Max: 121 Resp Av.2 Min: 11 Max: 18 SpO2 Av.8 % Min: 93 % Max: 100 % I/O: Intake/Output Summary (Last 24 hours) at 01/03/09 0630 Last data filed at 01/03/09 0100 Gross per 24 hour Intake 5693.75 ml Output 2475 ml Net 3218.75 ml Exam: A&Ox3 Strength full and symmetric through out Sensation grossly intact through out Cranial incision C/D/I Abdominal incision C/D/I Lab Results Component Value Date/Time ??? WBC 6.22 01/02/09 7:10 AM ??? HGB 12.5 01/02/09 7:10 AM ??? HCT 37.2 01/02/09 7:10 AM ??? PLT 210 01/02/09 7:10 AM ??? NA 139 01/02/09 7:10 AM ??? K 4.4 01/02/09 7:10 AM ??? CL 110 01/02/09 7:10 AM ??? CO2 28 01/02/09 7:10 AM ??? BUN 9* 01/02/09 7:10 AM ??? CREATININE 0.73 01/02/09 7:10 AM ??? PROTIME 13.3 01/02/09 9:44 AM ??? LABINR 1.0 01/02/09 9:44 AM Assessment 28 y.o. female, LOS: 3 days Plan: Neurological -H/E imroved Disposition - [facility] Home today Cosigned by Jurgen Parra at 01/03/2009 8:22 EDT * Deedee Diego, RN - 01/03/2009 0151 EDT No multi-disciplinary problems found Data: Pt c/o anxiety on evening shift Action: Order obtained from Dr. Chakraborty for Clonazepam PO prn (pt takes this at home for anxiety) Response: Anxiety subsided after taking Clonazepam. Deedee Diego RN 01/03/2009 1:51 AM * Ben Jama MD, - 01/02/20092000 EDT NS POC S: Headache improved, mild abdominal pain and headache O: BP 106/76 Pulse 108 Temp(Src) 36.4 ??C (97.5 ??F) (Temporal) Resp 12 SpO2 95% Alert and oriented to person, place, and time EOMI, face symmetric, tongue midline No pronator drift Strength full and symmetric through out Sensation grossly intact through out Cranial incisions C/D/I Abdominal incision C/D/I A/P: S/pp shunt revision, proximal catheter disconnected, and small CSF collection in sub-q abdominal tissues - Pain control - Ambulate as tolerated - Adv Diet Mylene 0703 Attestation statement: I saw and examined the patient with the resident. I agree with the findings and plan of care documented in the resident's/fellow's note. No headache this AM, feels well. Can be discharged. FU 3 wks. Advised about activities. Ben Jama MD * Dev Jamison - 01/02/2009 1414 EDT CASE MANAGEMENT ASSESSMENT 01/02/09 I met w/ pt in her room; aox3. I explained role of CM. Pt adm for headaches, needs TRADING ASSISTANT shuntrevision in O.R. Today. She lives w/ her , who is blind, in [facility] [place]. 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 Her doesn't drive (blind) but is employed at the college there. They have other family/friends locally for support. She has Medicare w/ Med D thru [employer]. No DC needs were identified at this time. Pt understands she is likely to DC home w/o needs providing the shunt revision is successful. I will follow for any discharge planning needs. // Sarabjit Jamison RN #[id number] * Diomedes Lane - 01/02/2009 0612 EDT No multi-disciplinary problems found Data: pt anxious for surgery today Action: pt given medication on evening shift to help with tension Response: pt responded well, given pain meds t/o noc shift to deal with pain and anxiety with positive effects. Diomedes Lane RN 01/02/2009 6:12 AM * Ben Jama MD, - 01/02/2009 0553 EDT Neurosurgery Progress Note Chief Complaint: Headache Subjective: Still with headache Objective: Allergies: Sulfa (Sulfonamide Antibiotics) Ibuprofen Cephalexin Nitrofurazone Topiramate Rofecoxib Macrobid Medications: citalopram 20 mg BID omeprazole 20 mg DAILY ranitidine 300 mg QHS docusate sodium 100 mg BID Multivitamins with Minerals 1 Tab DAILY PEG 3350-Electrolytes 17 g BID amoxicillin 250 mg Q8H Vital Signs: Blood pressure 106/60, pulse 95, temperature 36.3 ??C (97.3 ??F), temperature source Tympanic, resp. rate 18, SpO2 95%. Temp Av.6 ??C (97.8 ??F) Min: 36 ??C (96.8 ??F) Max: 37 ??C (98.6 ??F) Pulse Av Min: 95 Max: 111 Resp Av.8 Min: 16 Max: 18 SpO2 Av % Min: 94 % Max: 96 % I/O: Intake/Output Summary (Last 24 hours) at 01/02/0953 Last data filed at 01/02/09 0427 Gross per 24 hour Intake 350 ml Output 2025 ml Net -1675 ml Exam: A+O x 3, Fully conversant, speech clear Face symmetric, Tongue central PERLAi and EOMi Strong in the UE's and the LE's with grossly intact strength No drift, No clonus As per baseline Lab Results Component Value Date/Time ??? WBC 8.17 01/01/09 6:15 AM ??? HGB 13.4 01/01/09 6:15 AM ??? HCT 39.5 01/01/09 6:15 AM ??? PLT 233 01/01/09 6:15 AM ??? NA 139 01/01/09 6:15 AM ??? K 4.3 01/01/09 6:15 AM ??? CL 107 01/01/09 6:15 AM ??? CO2 24 01/01/09 6:15 AM ??? BUN 13 01/01/09 6:15 AM ??? CREATININE 0.86 01/01/09 6:15 AM ??? PROTIME 13.9 12/01/08 7:23 AM ??? LABINR 1.0 12/01/08 7:23 AM Assessment 28 y.o. female, hospital day # LOS: 2 days Possible shunt malFx Plan: Review imaging studies with Dr. Jama Possible shunt revision today - will review case this morning Attestation statement: I saw and examined the patient with the resident. I agree with the findings and plan of care documented in the resident's/fellow's note. Still has same headache despite shunt reprogramming to 0.5. Later shunt tap for shuntogram showed high pressure (~25 cm). Shuntogram shows flow into abdomen but not dispersal. IMP -- distal shunt malfunction in peritoneal portion. PLAN -- shunt revision today; pt agrees; have enlisted help of Dr. Conner for endoscopic placementand exploration of peritoneal space. Ben Jama MD * Jason Devries. - 01/01/2009 1650 EDT 1650 Patient complains of headache. Tylenol given. Patient believes oxycodone is causing generalized itching. Dr. Parra notified, benadryl given. Patient tolerating regular diet. Patient and her family eager to find out results from today's test. * Jaya Dickens MD - 01/01/2009 0654 EDT Neurosurgery Progress Note Chief Complaint: Headache Subjective: Still with headache Objective: Allergies: Sulfa (Sulfonamide Antibiotics) Ibuprofen Cephalexin Nitrofurazone Topiramate Rofecoxib Macrobid Medications: citalopram 20 mg BID omeprazole 20 mg DAILY ranitidine 300 mg QHS docusate sodium 100 mg BID Multivitamins with Minerals 1 Tab DAILY PEG 3350-Electrolytes 17 g BID morphine 6 mg Now HYDROmorphone (PF) .5 mg Now ondansetron 4 mg Now HYDROmorphone (PF) .5 mg Now ondansetron (PF) 4 mg Now Vital Signs: Blood pressure 117/57, pulse 105, temperature 36.9 ??C (98.4 ??F), temperature source Tympanic, resp. rate 16, SpO2 95%. Temp Av.6 ??C (97.9 ??F) Min: 36.4 ??C (97.5 ??F) Max: 36.9 ??C (98.4 ??F) Pulse Av.6 Min: 101 Max: 112 Resp Av.8 Min: 15 Max: 22 SpO2 Av.7 % Min: 94 % Max: 98 % I/O: Intake/Output Summary (Last 24 hours) at 01/01/09 0654 Last data filed at 01/01/09 0632 Gross per 24 hour Intake 240 ml Output 300 ml Net -60 ml Exam: A+O x 3, Fully conversant, speech clear Face symmetric, Tongue central PERLAi and EOMi Strong in the UE's and the LE's with grossly intact strength No drift, No clonus As per baseline Lab Results Component Value Date/Time ??? WBC 8.91 12/31/08 7:56 PM ??? HGB 14.1 12/31/08 7:56 PM ??? HCT 41.4 12/31/08 7:56 PM ??? PLT 282 12/31/08 7:56 PM ??? NA 141 12/31/08 7:56 PM ??? K 4.1 12/31/08 7:56 PM ??? CL 104 12/31/08 7:56 PM ??? CO2 29 12/31/08 7:56 PM ??? BUN 12 12/31/08 7:56 PM ??? CREATININE 0.80 12/31/08 7:56 PM ??? PROTIME 13.9 12/01/08 7:23 AM ??? LABINR 1.0 12/01/08 7:23 AM Assessment 28 y.o. female, hospital day # LOS: 1 day Possible shunt malFx Plan: For CT head this AM Then Shuntogram later this AM * Christy Lockhart RN - 01/01/2009240 EDT No multi-disciplinary problems found Data: Pt arrived to floor, VSS, neurologically intact, transferred self to bed, SCDs applied, IVF started, pt c/o continued headache as well as nausea. Action: Medicated with 8mg zofran. Response: Pt resting comfortably with no visible signs of pain or discomfort. Will continue to monitor. Christy Lockhart RN 01/01/2009 2:41 AM documented in this encounter H&P Notes * Ben Jama MD, - 12/31/20081951 EDT Neurosurgery H&P Consult requested by Maykel Otero,Gianluca Wilder, * for possible shunt malfunction CC: Headaches HPI: Radha Moya is a 28 y.o. old Female 28 Year old female, previously diagnosed with a Dandy Walker malformation at . The patient had a VPS placed at , with the distal catheter being lengthened at around 3y of age. The patient presented about 1 month ago to [facility] with a history of worsening of her baseline headaches. The patient had enlarged ventricles on CT scan (Previously ventricles were small). On the basis of a proven distal catheter malfunction, and proven functioning of proximal catheter, the patient had placement of a Strata II valve and revision of the distal catheter, with good flow demonstrated in distal catheter. Pt reports that her headaches had significantly improved after the placement of the shunt for around 2 weeks. Thereafter, her headaches worsened again. She now reports headaches, present at waking inthe AM, worsening with coughing and laughing. She also reports her headaches to be worse with standing up. No nausea or vomiting. No GIT upset, constipation, no coughing or sneezing. Her PCP recently diagnosed her with a ear infection for which she was placed on amoxicillin. Past Medical History Diagnosis Date ??? Hydrocephalus shunt placed 1978 ??? GERD (Gastroesophageal Reflux Disease) ??? Asthma ??? Depression ??? Ovarian Cyst ??? Ventral Hernia 2 yrs Past Surgical History Procedure Date ??? Eye surgery 1980 reports that she has never used tobacco. She reports that she does not currently drink alcohol. History Tobacco Use Never Allergies: Sulfa (Sulfonamide Antibiotics) Ibuprofen Cephalexin Nitrofurazone Topiramate Rofecoxib Macrobid Home medsPrior to Admission medications Medication Sig Start Date End Date Taking? Authorizing Provider hohbiylezjgmw-xeiobbqkvlecr-accrteipzuahlqvfce (MIDRIN) 325-65-100 mg per capsule Take 1 Cap by mouth 4 times daily as needed. Yes Historical Provider, oxycodone (ROXICODONE) 5 mg immediate release tablet Take 1-3 Tabs by mouth every 4 hours as neededfor Pain. discomfort 12/02/08 Lily Harry MD omeprazole (PRILOSEC) 20 mg capsule Take 20 mg by mouth daily. Historical Provider, ranitidine (ZANTAC) 150 mg tablet Take 300 mg by mouth at bedtime. Historical Provider, citalopram (CELEXA) 20 mg tablet Take 20 mg by mouth 2 times daily. Historical Provider, hncokbyvqn-sobcrfjoouowt-vwlgjwag (FIORICET, ESGIC) 50-325-40 mg per tablet Take 1 Tab by mouth daily as needed for Headaches. Historical Provider, acetaminophen (TYLENOL) 500 mg tablet Take 1,000 mg by mouth 4 times daily as needed for Pain. Historical Provider, albuterol (PROVENTIL HFA, VENTOLIN HFA) 90 mcg/Actuation inhaler Inhale 2 Puffs as directed 3 timesdaily as needed for Wheezing. 8.5gm Historical Provider, promethazine (PHENERGAN) 12.5 mg tablet Take 12.5 mg by mouth 3 times daily as needed for Nausea. Historical Provider, ROS: as mentioned in HPI, all other pertinent ROS negative PE: Blood pressure 119/74, pulse 101, temperature 36.5 ??C (97.7 ??F), temperature source Tympanic,resp. rate 15, SpO2 98%. Gen: Middle aged female, in no apparent distress Neuro: A+O x 3, fully conversant and speech clear PERLAi with EOMi, mild nystagmus present at baseline Strong in UE's and LE's No drift, no clonus Normal tone ABD: Soft, obese, with no tenderness noted. No masses palpable Incision CDI Head: Incision well healed Amount of fluid palpable around valve No sign of skin breakdown Neck: soft non-tender, supple No LN's Periph: Good cappilary refill, CVS: Periph pulses palpable Resp: No resp distress Shunt interrogated: Set at 1.5 as per notes Labs: Lab Results Component Value Date/Time ??? WBC 9.76 11/30/08 11:37 PM ??? HGB 13.7 11/30/08 11:37 PM ??? HCT 41.7 11/30/08 11:37 PM ??? PLT 278 11/30/08 11:37 PM ??? NA 140 11/30/08 11:37 PM ??? K 3.8 11/30/08 11:37 PM ??? CL 105 11/30/08 11:37 PM ??? CO2 27 11/30/08 11:37 PM ??? BUN 14 11/30/08 11:37 PM ??? CREATININE 0.90 11/30/08 11:37 PM ??? PROTIME 13.9 12/01/08 7:23 AM ??? LABINR 1.0 12/01/08 7:23 AM Imaging: CT Head reviewed - still demonstrating enlarged ventricles, in keeping with the prior CT scan, dilated in comparison to previous CT Assesment/Plan: 28 y.o. female with recently revised VPS (Only valve and distal catheter was revised) 1. Check CBC, Lytes, BUN, CR and CRP 2. Shunt tap - done - Opening pressure was 24cm water Good flow from proximal Delayed flow distally, but clears with flushing CSF sent for analysis 3. Shunt setting changed to 0.5 4. Admission to [facility] 5. DW Dr Jama and Dr Fernandez Attestation statement: I saw and examined the patient with the resident. I agree with the findings and plan of care documented in the resident's/fellow's note. Pt with known shunt revision recently. Recurrence of headache. Sent to hospital for workup. Shunt tap showed high pressure and slow distal flow. Head CT shows dilated ventricles similar to previous malfunction. Admit to [facility] for shuntogram and abdominal CT. Ben Jama MD documented in this encounter Procedure Notes * Inpatient, Physician - 01/11/2009 1043 EDTAssociated Order(s): ECG REPORT - SCANNED * Jos Whitt - 01/02/2009 1538 EDT NS OP Diagnosis: Shunt malfunction Procedure: Shunt revision - proximal Surgeon: Wiley Assist: Jose Eduardo Findings: Proximal disconnection - ventricular catheter to STRATA valve Distal - good flow; new connector placed at abdominal wound site. CSFoma at abdominal wound Valve re-set to 1.5 To pacu jose eduardo Cosigned by Ben Jama MD, MD at 01/03/2009 8:34 EDT * Vivek Campbell MD - 01/01/2009 1404 EDT NS Procedure Note: Shunt Tap Procedure Note Service Date: 01/01/2009 Regional Commercial Sales Manager(s): Dr. Ortega Datapower Consultant(s): Dr. Campbell Preprocedure diagnosis: headache Postprocedure diagnosis: headache Procedure: shunt tap Narrative: pt was placed supine on hospital bed. The shunt reservoir was palpated on the right occipital scalp. The area was prepped with betadine. The manometer was set up with the butterfly needle on one end of the 3 way stop cock, the 12cc syringe was attached to the opposite end and the manometer was attached to the end perpendicular to the other 2. The shunt reservoir was accessed with the 25 gauge butterfly needle, the 3 way stop cock was set so the butterfly needle and the butterfly needle were open. No spontaneous flow was obtained. The stop cock was then set so only the syringe and the needle were open, 3 ml of clear CSF was easily withdrawn from the reservoir at that point spontaneous flow was obtained. The stop cock was again set so only the manometer and the butterfly needle were open. Opening pressure of 24cm was obtained. The radioactive tracer was then injected into the shunt reservoir for the NM shunt evaluation. The butterfly needle was removed. Complications: none Drains: none Estimated Blood Loss: minimal Disposition: Pt to remain flat for 1 hour post procedure. Cosigned by Jareth Ortega MD, MD at 01/06/2009 11:18 EDT documented in this encounter OR Notes * Anesthesia Preprocedure Evaluation - Inpatient, Physician - 01/10/2009 1002 EDT * Anesthesia Procedure Notes - Inpatient, Physician - 01/02/2009 1607 EDT * OR PreOp - Inpatient, Physician - 01/02/2009 1604 EDT * OR Surgeon - Ben Jama MD, MD - 01/02/2009 0000 EDT PROCEDURE REPORT PT TYPE: IP SERVICE DATE: 01/02/2009 SURGEON: Ben Jama MD HAND BINDER CUTTER: Jos Whitt MD PREOPERATIVE DIAGNOSIS: Ventriculoperitoneal shunt malfunction. POSTOPERATIVE DIAGNOSIS: Ventriculoperitoneal shunt malfunction. PROCEDURE: Revision of proximal ventriculoperitoneal shunt system with repair of ventricular catheter disconnection. ANESTHESIA: General endotracheal. INDICATIONS: The patient is a 28-year-old woman who on 12/01/08 underwent a distal shunt revision with insertion of a valve and new distal catheter. The original shunt had been put in at and lengthened at age 3. She did well postoperatively, but recently redeveloped headaches. A shunt tap revealed high opening pressures of around 25 cm and a shuntogram seemed to show flow down to the abdomen, but not dispersing within the abdomen. There was a fluid-like collection under the skin at the site of the abdominal entry point. This was thought to represent a distal obstruction. NARRATIVE: The patient was brought to the operating room and once under general anesthesia with endotracheal tube was positioned supine on the operating room table with the head turned to present theright side of the cranium and subsequently the entire abdomen, right side of the chest, neck and left head were prepared with Hibiclens, alcohol and DuraPrep and was sterilely draped. The abdominal incision was opened and the catheter secured and sectioned. Dr Hemphill had come into the room in anticipation of performing a laparoscopic exploration of the abdomen and a shunt revision. On cutting the abdominal catheter and testing it with a manometer, there was free and rapid flow of fluid into the abdomen, indicating no obstruction there. It should be noted that underneath the incision there was a large pocket of spinal fluid under pressure. The distal end of the catheter heading from the valve was slowly dripping fluid. However, the shunt malfunction could not be explained. Therefore, thearea just below the shunt valve was opened with a scalpel and dissection carried down to expose thetubing and this connection appeared entirely intact. Another incision was made at the upper end of the shunt valve, which on exposure revealed that the old tubing from the ventricular catheter had become disconnected from the valve. This tubing as noted in the previous operative note was very soft and had a wire within it. It was very difficult to manipulate or tie to without damaging it. The shunt valve was then pulled rostrally and connected to a free section of this tubing and in the processlengthening the incision. The valve was then tacked down to the surrounding tissue with three 4-0 Nurolon sutures to take tension off this connection. All wounds were thoroughly irrigated and closed w ith 3-0 Vicryl for the subcutaneous tissues and 4-0 Vicryl Rapide for the skin. The patient was awakened from anesthesia. Blood loss was negligible and there were no specimens sent and no identified complications. Unless otherwise noted, there were no complications, no blood loss, cultures obtained, specimens removed, or drains retained. ESTIMATED BLOOD LOSS: FLUIDS: SPECIMENS: COMPLICATIONS: Ben Jmaa MD Professor [facility] Division of Neurological Surgery - Ben Jama MD P - [facility] Job ID: [id number] Document ID: [id number] cc: Nimisha Padilla MD documented in this encounter ED Notes * Janae Coburn - 12/31/20082233 EDT PT'S MOM'S PHONE- [phone] * Janae Coburn - 12/31/20082228 EDT Pain is better. Awaiting adm bed. Pt will try & get sleep. * Debbie Kasper RN - 12/31/2008 2217 EDT Pt states pain is at 6 now, eating sandwich. Alert and talkative. * Janae Coburn - 12/31/2008 2048 EDT NEURO @ BEDSIDE - SHUNT TAP * Javed Montaño - 12/31/20082001 EDT Blood drawn via saline lock per protocol, tiger and purple tube(s) sent to lab per order. * Gianluca Brar IV, MD - 12/31/2008 1802 EDT DOS: 12/31/2008 Chief Complaint Patient presents with ??? Headache two day history of BECKWITH. Associated with nausea.Recently had TRADING ASSISTANT shunt revised (December 02) Patient is a 28 y.o. female presenting with headaches. The history is provided by the patient and aparent. Headache This is a recurrent problem. The problem occurs constantly. The problem has been gradually worsening. The headache is associated with nothing. The pain is located in the bilateral region. The pain quality is described as throbbing. The pain is moderate. The pain radiates to the face. Associated symptoms include nausea. Pertinent negatives include no anorexia, no fever, no chest pressure and no shortness of breath. She has tried oral narcotic analgesics for the symptoms. The treatment provided mild relief. Review of Systems Constitutional: Negative for fever and activity change. HENT: Negative. Eyes: Negative. Respiratory: Negative for cough and shortness of breath. Cardiovascular: Negative for chest pain. Gastrointestinal: Positive for nausea. Negative for abdominal pain. Genitourinary: Negative for dysuria. Musculoskeletal: Negative for back pain. Skin: Negative. Neurological: Negative. All other systems reviewed and are negative. Past Medical History Diagnosis Date ??? Hydrocephalus shunt placed 1978 ??? GERD (Gastroesophageal Reflux Disease) ??? Asthma ??? Depression ??? Ovarian Cyst ??? Ventral Hernia 2 yrs Past Surgical History Procedure Date ??? Eye surgery 1981 Allergies Allergen Reactions ??? Sulfa (Sulfonamide Antibiotics) Swelling ??? Ibuprofen Itching and Nausea Only ??? Cephalexin Itching ??? Nitrofurazone ??? Topiramate Increased HAs ??? Rofecoxib ??? Macrobid (Nitrofurantoin (Znusolwcuc53%)) Itching History Substance Use Topics ??? Tobacco Use: Never ??? Alcohol Use: No No family history on file. BP 119/65 Pulse 91 Temp(Src) 37.3 ??C (99.1 ??F) (Tympanic) Resp 18 SpO2 96% Physical Exam Nursing note and vitals reviewed. Constitutional: She is oriented. She appears well-developed and well-nourished. HENT: Head: Normocephalic and atraumatic. Shunt, slightly disconjugate gaze Eyes: Pupils are equal, round, and reactive to light. Neck: Neck supple. Cardiovascular: Normal rate and intact distal pulses. Pulmonary/Chest: Effort normal. No respiratory distress. Abdominal: She exhibits no distension. Tenderness is present. Musculoskeletal: Normal range of motion. Neurological: She is alert and oriented. Skin: Skin is warm and dry. Psychiatric: She has a normal mood and affect. Her behavior is normal. Thought content normal. Radiology orders: SHUNT SERIES CT HEAD WO CONTRAST NM CSF SHUNT EVALUATION CT HEAD WO CONTRAST CT ABDOMEN, PELVIS WO CONTRAST SHUNT SERIES Final result not shown here.: CT HEAD WO CONTRAST Final result not shown here.: NM CSF SHUNT EVALUATION Final result not shown here.: CT HEAD WO CONTRAST Final result not shown here.: CT ABDOMEN, PELVIS WO CONTRAST Final result not shown here.: CT HEAD (Results Pending) CT HEAD (Results Pending) CT ABDOMEN (LUNG BASES TO ILIAC CREST) (Results Pending) CT ABDOMEN WO CONTRAST (Results Pending) CT viewed by myself, discussed with and interpreted by the radiologist, please see radiology reportfor further details. No significant change in size of ventricles. Xrays visualized by myself and interpreted concurrently with radiologist. Please see radiology reading for further details. No break in shunt. Patient had laboratory tests ordered which were reviewed and interpreted by myself. Please see laboratory results for detailed information. Pain control managed with IV pain medications. Procedures Consult orders: Neurosurgery ED Course: Pt presents to ED for eval of headache. Approx 4 wks s/p shunt revision. No fever. Shunt tapped by neurosurgery. Admit to neurosurgery for further management. MDM Number of Diagnoses and Management Options Encounter Diagnoses Code Name Primary? Qualifier ??? 784.0 Headache ??? V45.89TL S/P TRADING ASSISTANT Shunt PCP: SEYMOUR LEZAMASW 01/07/2009 9:21 PM documented in this encounter Miscellaneous Notes * Scanned Note-Null - Inpatient, Physician - 01/11/2009 1044 EDT * Scanned Note-Null - Inpatient, Physician - 01/10/2009 1002 EDT * Scanned Note-Null - Inpatient, Physician - 01/10/2009 1002 EDT * Scanned Note-Null - Inpatient, Physician - 01/10/2009 1002 EDT documented in this encounter Plan of Treatment Not on file documented as of this encounter Procedures Procedure Name Priority Date/Time Associated Diagnosis Comments ECG REPORT - SCANNED 01/11/2009 10:43 EDT COMPLETE BLOOD COUNT AND DIFFERENTIAL STAT 01/03/2009 6:42 EDT BUN Routine 01/03/2009 6:42 EDT CREATININE Routine 01/03/2009 6:42 EDT ELECTROLYTES Routine 01/03/2009 6:42 EDT PTT STAT 01/02/2009 9:44 EDT PROTIME STAT 01/02/2009 9:44 EDT COMPLETE BLOOD COUNT AND DIFFERENTIAL STAT 01/02/2009 7:10 EDT BUN Routine 01/02/2009 7:10 EDT CREATININE Routine 01/02/2009 7:10 EDT ELECTROLYTES Routine 01/02/2009 7:10 EDT URINE MICROSCOPIC Routine 01/01/2009 15: 59 EDT URINALYSIS WITH MICROSCOPIC IF POSITIVE Routine 01/01/2009 15:59 EDT URINE CULTURE IF POSITIVE Routine 01/01/2009 15:59 EDT NM CSF SHUNT EVALUATION Routine 01/01/2009 12:[address] ABDOMEN, PELVIS WO CONTRAST 01/01/2009 9:[address] HEAD WO CONTRAST 01/01/2009 8 :44 EDT COMPLETE BLOOD COUNT AND DIFFERENTIAL STAT 01/01/2009 6:15 EDT BUN Routine 01/01/2009 6:15 EDT CREATININE Routine 01/01/2009 6:15 EDT ELECTROLYTES Routine 01/01/2009 6:15 EDT SCREENING GLUCOSE Routine 01/01/2009 2:0 8 EDT TYPE AND SCREEN Routine 01/01/2009 1:43 EDT BACTERIAL CULTURE/SMEAR, FLUID STAT 12/31/2008 21:12 EDT CELL COUNT,CSF STAT 12/31/2008 21:11 EDT FLUID DIFFERENTIAL Routine 12/31/2008 21 :11 EDT TOTAL PROTEIN, CSF STAT 12/31/2008 21 :11 EDT GLUCOSE CSF STAT 12/31/2008 21:11 EDT COMPLETE BLOOD COUNT AND DIFFERENTIAL STAT 12/31/2008 19:56 EDT C REACTIVE PROTEIN Routine 12/31/2008 19 :56 EDT BUN STAT 12/31/2008 19:56 EDT CREATININE STAT 12/31/2008 19:56 EDT ELECTROLYTES STAT 12/31/2008 19:[address] HEAD WO CONTRAST 12/31/2008 1 8:11 EDT SHUNT SERIES STAT 12/31/2008 18:04 EDT documented in this encounter Results * ECG REPORT - SCANNED (01/11/2009 10:43 EDT) 01/11/2009 10:4 3 EDT Narrative Procedure Note Inpatient, Physician - 01/11/2009 10:43 EDT Physician Inpatient MD PROCEDURE/MINOR SURGICAL ORDERABLES Final Result * (ABNORMAL) HEMAGRAM AND DIFFERENTIAL (01/03/2009 6:42 EDT) WBC 10.26 4.0 - 12.4 K/cmm [facility] RBC 3.93 3.86 - 5.04 M/cmm [facility] Hemoglobin 11.8 11.6 - 15.2 gm/dl [facility] HCT 35.1 34.9 - 44.4 % [facility] MCV 89 81 - 98 fl [facility] MCH 29.9 26.7 - 33.3 pg [facility] MCHC 33.6 32.1 - 35.9 gm/dl [facility] PLT 216 141 - 320 K/cmm [facility] RDW-CV 13.0 11.7 - 14.6 % [facility] Neutrophils 73.8 45.5 - 79.7 % [facility] Lymphocytes 16.7 15.0 - 46.8 % [facility] Monocytes 8.1 1.8 - 12.0 % [facility] Eosinophils 1.2 0.6 - 6.9 % [facility] Basophils 0.2 0.2 - 1.4 % [facility] ABS Neutrophils 7.57 2.20 - 8.85 K/cmm [facility] ABS Lymphs 1.71 1.09 - 3.30 K/cmm [facility] ABS Monocytes 0.83(H) 0.1 - 0.8 K/cmm [facility] ABS Eosinophils 0.13 0.03 - 0.61 K/cmm [facility] ABS Basophils 0.02 0.01 - 0.11 K/cmm [facility] Type of Diff: Automated [facility] Blood specimen (specimen) 01/03/2009 6:42 EDT 01/03/2009 7:15 EDT Jos Whitt MD PACKAGES & DNA PROBE ORDERABLES Final Result Performing Organization Address City/[facility] [[email or web address]] Co de Phone Number [facility] [address] [place] [address] * (ABNORMAL) CREATININE (01/03/2009 6:42 EDT) Creatinine 0.65(L) 0.7 - 1.5 mg/dl [facility] GFR, Calculated >60 ml/min/1.7 3m2 [facility] Blood specimen (specimen) 01/03/2009 6:42 EDT 01/03/2009 7:15 EDT Jos Whitt MD CHEMISTRY & BLOOD GAS ORDERABLE S Final Result Performing Organization Address City/State/[facility] [[email or web address]] Co de Phone Number [facility] [address] [place] [address] * BUN (01/03/2009 6:42 EDT) [facility] BUN 11 10 - 26 mg/dl [facility] Blood specimen (specimen) 01/03/2009 6:42 EDT 01/03/2009 7:15 EDT Jos Whitt MD CHEMISTRY & BLOOD GAS ORDERABLE S Final Result Performing Organization Address [facility] de Phone Number [facility] [address] [place] [address] * ELECTROLYTES (01/03/2009 6:42 EDT) [facility] Sodium 139 136 - 145 mEq/L [facility] Potassium 4.3 3.5 - 5.0 mEq/L [facility] Chloride 106 96 - 110 mEq/L [facility] CO2 27 24 - 32 mEq/L [facility] Blood specimen (specimen) 01/03/2009 6:42 EDT 01/03/2009 7:15 EDT Jos Whitt MD CHEMISTRY & BLOOD GAS ORDERABLE S Final Result Performing Organization Address [facility] de Phone Number [facility] [address] [place] [address] * PTT (01/02/2009 9:44 EDT) [facility] PTT 27 20 - 35 secs [facility] Comment: Therapeutic Heparin range: ?? 60-100 seconds Moderate hemolysis Blood specimen (specimen) 01/02/2009 9:44 EDT 01/02/2009 10:11 EDT Vivek Campbell MD HEMATOLOGY & PF4 ORDERABLES F inal Result Performing Organization Address [facility] [[email or web address]] Co de Phone Number [facility] [address] [place] [address] * PROTIME (01/02/2009 9:44 EDT) Pro Time 13.3 12.0 - 15.0 secs [facility] Comment:Moderate hemolysis I.N.R. 1.0 0.9 - 1.1 Ratio [facility] Comment: Moderate Intensity Coumadin INR = 2.0-3.0 Adjustments in anticoagulant therapy dose should be based upon the INR and NOT the Pro Time. Moderate hemolysis Blood specimen (specimen) 01/02/2009 9:44 EDT 01/02/2009 10:11 EDT us Vivek Campbell MD HEMATOLOGY & PF4 ORDERABLES F inal Result [facility] [address] [place] [address] * (ABNORMAL) HEMAGRAM AND DIFFERENTIAL (01/02/2009 7:10 EDT) Pathologist [facility] WBC 6.22 4.0 - 12.4 K/cmm [facility] RBC 4.16 3.86 - 5.04 M/cmm [facility] Hemoglobin 12.5 11.6 - 15.2 gm/dl [facility] HCT 37.2 34.9 - 44.4 % [facility] MCV 89 81 - 98 fl [facility] MCH 30.0 26.7 - 33.3 pg [facility] MCHC 33.6 32.1 - 35.9 gm/dl [facility] PLT 210 141 - 320 K/cmm [facility] RDW-CV 13.7 11.7 - 14.6 % [facility] Neutrophils 45.1(L) 45.5 - 79.7 % [facility] Lymphocytes 40.2 15.0 - 46.8 % [facility] Monocytes 9.2 1.8 - 12.0 % [facility] Eosinophils 5.0 0.6 - 6.9 % [facility] Basophils 0.5 0.2 - 1.4 % [facility] ABS Neutrophils 2.80 2.20 - 8.85 K/cmm [facility] ABS Lymphs 2.50 1.09 - 3.30 K/cmm [facility] ABS Monocytes 0.57 0.1 - 0.8 K/cmm [facility] ABS Eosinophils 0.31 0.03 - 0.61 K/cmm [facility] ABS Basophils 0.03 0.01 - 0.11 K/cmm [facility] Type of Diff: Automated [facility] Blood specimen (specimen) 01/02/2009 7:10 EDT 01/02/2009 7:16 EDT Jaya Dickens MD PACKAGES & DNA PROBE ORDERABLE S Final Result Performing Organization Address [facility] de Phone Number [facility] [address] [place] [address] * CREATININE (01/02/2009 7:10 EDT) Pathologist [facility] Creatinine 0.73 0.7 - 1.5 mg/dl [facility] GFR, Calculated >60 ml/min/1.7 3m2 [facility] Blood specimen (specimen) 01/02/2009 7:10 EDT 01/02/2009 7:16 EDT Jaya Dickens MD CHEMISTRY & BLOOD GAS ORDERABL ES Final Result Performing Organization Address [facility] de Phone Number [facility] [address] [place] [address] * (ABNORMAL) BUN (01/02/2009 7:10 EDT) BUN 9(L) 10 - 26 mg/dl [facility] Blood specimen (specimen) 01/02/2009 7:10 EDT 01/02/2009 7:16 EDT Jaya Dickens MD CHEMISTRY & BLOOD GAS ORDERABL ES Final Result Performing Organization Address [facility] de Phone Number [facility] [address] [place] [address] * ELECTROLYTES (01/02/2009 7:10 EDT) Sodium 139 136 - 145 mEq/L [facility] Potassium 4.4 3.5 - 5.0 mEq/L [facility] Chloride 110 96 - 110 mEq/L [facility] CO2 28 24 - 32 mEq/L [facility] Blood specimen (specimen) 01/02/2009 7:10 EDT 01/02/2009 7:16 EDT Jaya Dickens MD CHEMISTRY & BLOOD GAS ORDERABL ES Final Result Performing Organization Address City/[facility]/ZIP Co de Phone Number [facility] [address] [place] [address] * (ABNORMAL) URINE MICROSCOPIC (01/01/2009 15:59 EDT) WBC, UA None seen 0 - 5 /HPF [facility] RBC, UA 1 to 5 0 - 5 /HPF [facility] Squam Epithel, UA Few(A) NS /HPF [facility] Renal Epithel, UA None seen NS /HPF [facility] Bacteria, UA None seen NS /HPF [facility] Crystals, UA None seen /HPF [facility] Hyaline Casts, UA None seen /LPF [facility] Comment Microscopic results are unreliable on urines unrefrig >2hrs or refrig >8hrs. [facility] 01/01/2009 15:5 9 EDT 01/01/2009 16:29 EDT Jaya Dickens MD URINALYSIS ORDERABLES Final Re sult Performing Organization Address City/[facility]/ZIP Co de Phone Number [facility] [address] [place] [address] * CULTURE IF UA POSITIVE (01/01/2009 15:59 EDT) Culture if Indicated Culture not indicated by urinalysis results. [facility] Urine specimen (specimen) 01/01/2009 15:59 EDT 01/01/2009 16:29 EDT Jaya Dickens MD MICROBIOLOGY - GENERAL ORDERAB LES Final Result Performing Organization Address City/[facility]/ZIP Co de Phone Number [facility] [address] [place] [address] * (ABNORMAL) URINALYSIS, CHEMICAL (01/01/2009 15:59 EDT) Color, UA Yellow [facility] Clarity, UA Clear [facility] Glucose, UA Neg NEG [facility] Bilirubin, UA Neg NEG [facility] Ketones, UA Neg NEG [facility] Specific [place], Urine 1.010 1.001 - 1.03 [facility] Blood, UA Trace(A) NEG [facility] pH, UA 5.5 4.6 - 8.0 [facility] Protein, UA Neg NEG [facility] Urobilinogen, UA 0.2 0.2 - 1.0 mg/dL [facility] Nitrite, UA Neg NEG [facility] Leuk Esterase Neg NEG [facility] Urine specimen (specimen) 01/01/2009 15:59 EDT 01/01/2009 16:29 EDT Jaya Dickens MD URINALYSIS ORDERABLES Final Re sult [facility] [address] [place] [address] * NM CSF SHUNT EVALUATION (01/01/2009 12:44 EDT) Anatomical Region Laterality Modality Other 01/01/2009 12:4 4 EDT 01/01/2009 17:54 EDT Narrative 01/01/2009 17:54 EDT NM CSF SHUNT EVALUATION ??Jan 01, 2009 12:44:00 PM Signs and Symptoms/Comments: ??Headache with VPS - evaluate for shunt obstruction. Comparisons: Findings were correlated with head CT and abdomen and pelvis CT performed on the same day. Technique: After the injection of 1 mCi Tc-99m DTPA into the shunt reservoir in the parieto-occipital region, images were obtained of the shunt from the head to the abdomen. ?? Findings: There is no reflux into the ventricles on the initial images which may be technical. Shortly following this, extravasation of injected radiotracer is evident within the proximal shunt with extravasation into subcutaneous tissues of the neck. There is markedly prolonged transit time along the course of the position shunt. This may be within the shunt itself or within the fibrous tunnel, given the appearance on CT. Also know, there is delayed activity within the anterior abdominal wall corresponding to a CSFoma on the recent CT. Minimal to if any spillage into the peritoneum is seen at 75 minutes. Impression: 1. Extravasation of activity at the proximal portion of the shunt. 2. There may also be obstruction of the efferent loop shunt as the radiotracer may course along the cavernous tunnel of the catheter into the peritoneum which shows little to if any spillage. 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 I have personally reviewed the images and the above interpretation and agree with the findings. Procedure Note Michaela Hassan MD / Michaela Hassan MD / Michaela Hassan MD - 01/01/2009 NM CSF SHUNT EVALUATION Jan 01, 2009 12:44:00 PM Signs and Symptoms/Comments: Headache with VPS - evaluate for shunt obstruction. Comparisons: Findings were correlated with head CT and abdomen and pelvis CT performed on the same day. Technique: After the injection of 1 mCi Tc-99m DTPA into the shunt reservoir in the parieto-occipital region, images were obtained of the shunt from the head to the abdomen. Findings: There is no reflux into the ventricles on the initial images which may be technical. Shortly following this, extravasation of injected radiotracer is evident within the proximal shunt with extravasation into subcutaneous tissues of the neck. There is markedly prolonged transit time along the course of the position shunt. This may be within the shunt itself or within the fibrous tunnel, given the appearance on CT. Also know, there is delayed activity within the anterior abdominal wall corresponding to a CSFoma on the recent CT. Minimal to if any spillage into the peritoneum is seen at 75 minutes. Impression: 1. Extravasation of activity at the proximal portion of the shunt. 2. There may also be obstruction of the efferent loop shunt as the radiotracer may course along the cavernous tunnel of the catheter into the peritoneum which shows little to if any spillage. 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 I have personally reviewed the images and the above interpretation and agree with the findings. us Jaya Dickens MD [facility] ORDERABLES Final Result * CT ABDOMEN, PELVIS WO CONTRAST (01/01/2009 9:00 EDT) Anatomical Region Laterality Modality Other 01/01/2009 9:00 EDT 01/01/2009 15:56 EDT Narrative 01/01/2009 15:[address] ABDOMEN, PELVIS WITHOUT ??Jan 01, 2009 9:00:00 AM Signs and Symptoms/Comments: ??distal shunt malfunction, question of pseudocyst in abdomen Comparison: None. Technique: Helical images were obtained from the domes of the diaphragm to the iliac crests. A noncontrast study of the upper abdomen was initially performed but was converted to an abdomen and pelvis study due to nonvisualization of the new shunt tip on the abdomen only study. Findings: CT of the abdomen without contrast demonstrates two TRADING ASSISTANT shunts. The patient's older shunt travels through the subcutaneous tissues of the anterior abdomen, enters the peritoneum, and terminates within the right lower quadrant of the abdomen. The patient's new shunt is also seen within the subcutaneous tissues of the anterior abdomen, penetrates the peritoneum in the vicinity of the umbilicus, and ultimately terminates within the right hemipelvis. No fluid collections are seen around either shunt terminus or elsewhere within the abdomen or pelvis. There is a fluid collection within the anterior subcutaneous tissues in the area where the patient's new shunt enters the peritoneum just anterior to the right rectus muscle which may represent a seroma, but the shunt does not appear to be compressed by this collection. Both the patient's new and old shunts appear intact throughout their course through the abdomen and pelvis. A trace amount of free fluid is seen within the cul-de-sac, likely physiologic. The lung bases, liver, gallbladder, pancreas, spleen, kidneys, and adrenal glands are normal. The bowel is unremarkable, with no abnormal bowel wall thickening or evidence of obstruction. Sclerotic foci are seen within the bony pelvis, almost certainly benign in a patient without a history of malignancy. Note is made of a small hiatal hernia. Impression: 1. No evidence of shunt disruption or pseudocyst formation in the abdomen or pelvis. 2. Anterior subcutaneous tissues fluid collection at the patient's recently placed shunt entrance into the peritoneum, likely a seroma. 3. Small hiatal hernia. I have personally reviewed the images and the above interpretation and agree with the findings. Procedure Note Dante Granado / Dante Granado / Dante Granado - 01/01/2009 CT ABDOMEN, PELVIS WITHOUT Jan 01, 2009 9:00:00 AM Signs and Symptoms/Comments: distal shunt malfunction, question of pseudocyst in abdomen Comparison: None. Technique: Helical images were obtained from the domes of the diaphragm to the iliac crests. A noncontrast study of the upper abdomen was initially performed but was converted to an abdomen and pelvis study due to nonvisualization of the new shunt tip on the abdomen only study. Findings: CT of the abdomen without contrast demonstrates two TRADING ASSISTANT shunts. The patient's older shunt travels through the subcutaneous tissues of the anterior abdomen, enters the peritoneum, and terminates within the right lower quadrant of the abdomen. The patient's new shunt is also seen within the subcutaneous tissues of the anterior abdomen, penetrates the peritoneum in the vicinity of the umbilicus, and ultimately terminates within the right hemipelvis. No fluid collections are seen around either shunt terminus or elsewhere within the abdomen or pelvis. There is a fluid collection within the anterior subcutaneous tissues in the area where the patient's new shunt enters the peritoneum just anterior to the right rectus muscle which may represent a seroma, but the shunt does not appear to be compressed by this collection. Both the patient's new and old shunts appear intact throughout their course through the abdomen and pelvis. A trace amount of free fluid is seen within the cul-de-sac, likely physiologic. The lung bases, liver, gallbladder, pancreas, spleen, kidneys, and adrenal glands are normal. The bowel is unremarkable, with no abnormal bowel wall thickening or evidence of obstruction. Sclerotic foci are seen within the bony pelvis, almost certainly benign in a patient without a history of malignancy. Note is made of a small hiatal hernia. Impression: 1. No evidence of shunt disruption or pseudocyst formation in the abdomen or pelvis. 2. Anterior subcutaneous tissues fluid collection at the patient's recently placed shunt entrance into the peritoneum, likely a seroma. 3. Small hiatal hernia. I have personally reviewed the images and the above interpretation and agree with the findings. 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 Clinical History: Hydrocephalus Technique: Axial noncontrast CT images from the foramen magnum to the skull vertex were obtained. Comparison: 12/31/2008, 11/30/2008, and 07/25/2008. Findings: The ventriculoperitoneal shunt is in stable position with tip in the body of the left lateral ventricle. The bones and soft tissues are unchanged. The previously described ventriculomegaly is stable compared with yesterday's CT and with the study of 11/30/2008. There is no midline shift and the cisterns are patent. Dandy ??Walker malformation is present. I have personally reviewed the images and the above interpretation and agree with the findings. Procedure Note Gianluca Issa MD / Gianluca Issa MD / Gianluca Issa MD - 01/01/2009 CT HEAD W/O CONTRAST Jan 01, 2009 8:44:29 AM Impression: 1. 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 Clinical History: Hydrocephalus Technique: Axial noncontrast CT images from the foramen magnum to the skull vertex were obtained. Comparison: 12/31/2008, 11/30/2008, and 07/25/2008. Findings: The ventriculoperitoneal shunt is in stable position with tip in the body of the left lateral ventricle. The bones and soft tissues are unchanged. The previously described ventriculomegaly is stable compared with yesterday's CT and with the study of 11/30/2008. There is no midline shift and the cisterns are patent. Dandy Walker malformation is present. I have personally reviewed the images and the above interpretation and agree with the findings. us Jaya Dickens MD IMG CT ORDERABLES Final Result * (ABNORMAL) HEMAGRAM AND DIFFERENTIAL (01/01/2009 6:15 EDT) WBC 8.17 4.0 - 12.4 K/cmm [facility] RBC 4.44 3.86 - 5.04 M/cmm [facility] Hemoglobin 13.4 11.6 - 15.2 gm/dl [facility] HCT 39.5 34.9 - 44.4 % [facility] MCV 89 81 - 98 fl [facility] MCH 30.2 26.7 - 33.3 pg [facility] MCHC 34.0 32.1 - 35.9 gm/dl [facility] PLT 233 141 - 320 K/cmm [facility] RDW-CV 13.3 11.7 - 14.6 % [facility] Neutrophils 47.3 45.5 - 79.7 % [facility] Lymphocytes 38.2 15.0 - 46.8 % [facility] Monocytes 10.9 1.8 - 12.0 % [facility] Eosinophils 3.2 0.6 - 6.9 % [facility] Basophils 0.4 0.2 - 1.4 % [facility] ABS Neutrophils 3.86 2.20 - 8.85 K/cmm [facility] ABS Lymphs 3.12 1.09 - 3.30 K/cmm [facility] ABS Monocytes 0.89(H) 0.1 - 0.8 K/cmm [facility] ABS Eosinophils 0.26 0.03 - 0.61 K/cmm [facility] ABS Basophils 0.04 0.01 - 0.11 K/cmm [facility] Type of Diff: Automated [facility] Blood specimen (specimen) 01/01/2009 6:15 EDT 01/01/2009 7:05 EDT us Jaya Dickens MD PACKAGES & DNA PROBE ORDERABLE S Final Result [facility] [address] [place] [address] * CREATININE (01/01/2009 6:15 EDT) Pathologist [facility] Creatinine 0.86 0.7 - 1.5 mg/dl [facility] GFR, Calculated >60 ml/min/1.7 3m2 [facility] Blood specimen (specimen) 01/01/2009 6:15 EDT 01/01/2009 7:05 EDT Jaya Dickens MD CHEMISTRY & BLOOD GAS ORDERABL ES Final Result Performing Organization Address [facility] de Phone Number [facility] [address] [place] [address] * BUN (01/01/2009 6:15 EDT) BUN 13 10 - 26 mg/dl [facility] Blood specimen (specimen) 01/01/2009 6:15 EDT 01/01/2009 7:05 EDT Jaya Dickens MD CHEMISTRY & BLOOD GAS ORDERABL ES Final Result Performing Organization Address [facility] de Phone Number [facility] [address] [place] [address] * ELECTROLYTES (01/01/2009 6:15 EDT) Sodium 139 136 - 145 mEq/L [facility] Potassium 4.3 3.5 - 5.0 mEq/L [facility] Chloride 107 96 - 110 mEq/L [facility] CO2 24 24 - 32 mEq/L [facility] Blood specimen (specimen) 01/01/2009 6:15 EDT 01/01/2009 7:05 EDT Jaya Dickens MD CHEMISTRY & BLOOD GAS ORDERABL ES Final Result Performing Organization Address [facility] de Phone Number [facility] [address] [place] [address] * SCREENING GLUCOSE (01/01/2009 2:08 EDT) Glucose, Screening 97 70 - 100 mg/dl [facility] Blood specimen (specimen) 01/01/2009 2:08 EDT 01/01/2009 2:19 EDT Jaya Dickens MD CHEMISTRY & BLOOD GAS ORDERABL ES Final Result Performing Organization Address [facility] de Phone Number [facility] [address] [place] [address] * TYPE AND SCREEN (01/01/2009 1:43 EDT) ABO B [facility] Rh Factor Negative [facility] Antibody Screen Negative [facility] Comment:SPECIMEN EXPIRES @ 2 3.59 ON 01-04-09 Blood specimen (specimen) 01/01/2009 1:43 EDT 01/01/2009 1:43 EDT Jaya Dickens MD BLOOD BANK TESTS Final Result Performing Organization Address [facility] de Phone Number [facility] [address] [place] [address] * BACTERIAL CULTURE/SMEAR, FLUID (12/31/2008 21:12 EDT) Pathologist [facility] Specimen Description Other Spinal Fluid 2.5CC [facility] Gram Smear Result No polys seen No mononuclear cells seen. No bacteria seen [facility] Result No growth [facility] Report Status Final 01/05/2009 [facility] Specimen of unknown material (specimen) 12/31/2008 21:12 EDT 12/31/2008 21:21 EDT Jaya Dickens MD MICROBIOLOGY - GENERAL ORDERAB LES Final Result Performing Organization Address [facility] de Phone Number [facility] [address] [place] [address] * (ABNORMAL) FLUID DIFFERENTIAL (12/31/2008 21:11 EDT) Neutrophils, CSF 25(H) 0 - 6 % [facility] Lymphocyte, CSF 27(L) 40 - 80 % [facility] [place]/Macro, CSF 36 15 - 45 % [facility] Eosinophil, CSF 5 % [facility] Other, CSF 7 % [facility] Comment:LINING CELLS Comment Reviewed by Dr. Laverne PARKER 12/31/2008 21:1 1 EDT 12/31/2008 21:16 EDT us Jaya Dickens MD GEN LAB UNIT COLLECT ORDERABLE S Final Result Performing Organization Address [facility] [[email or web address]] Co de Phone Number [facility] [address] [place] [address] * GLUCOSE CSF (12/31/2008 21:11 EDT) Glucose, CSF 58 mg/dl [facility] Comment: Ref Range=60-80% of plasma glucose result Cerebrospinal fluid (substance) 12/31/2008 21:11 EDT 12/31/2008 21:16 EDT us Jaya Dickens MD GEN LAB UNIT COLLECT ORDERABLE S Final Result Performing Organization Address [facility] [[email or web address]] Co de Phone Number [facility] [address] [place] [address] * TOTAL PROTEIN, CSF (12/31/2008 21:11 EDT) Total Protein, CSF 16 15 - 60 mg/dl [facility] Cerebrospinal fluid (substance) 12/31/2008 21:11 EDT 12/31/2008 21:16 EDT us Jaya Dickens MD GEN LAB UNIT COLLECT ORDERABLE S Final Result Performing Organization Address [facility] de Phone Number [facility] [address] [place] [address] * (ABNORMAL) CSF CELL COUNT (12/31/2008 21:11 EDT) RBC, CSF 37 /cmm [facility] Comment:Shunt tap Nucleated Cells 7(H) 0 - 5 /cmm [facility] Comment:Shunt tap Total Vol. 5.0 ml [facility] Comment:Shunt tap Tube Cntd. 4 Shunt tap [facility] Total Vol. 5.0 ml [facility] Comment:Shunt tap Comment Clear and Colorless Shunt tap [facility] Cerebrospinal fluid (substance) 12/31/2008 21:11 EDT 12/31/2008 21:16 EDT us Jaya Dickens MD GEN LAB UNIT COLLECT ORDERABLE S Final Result [facility] [address] [place] [address] * HEMAGRAM AND DIFFERENTIAL (12/31/2008 19:56 EDT) WBC 8.91 4.0 - 12.4 K/cmm [facility] RBC 4.66 3.86 - 5.04 M/cmm [facility] Hemoglobin 14.1 11.6 - 15.2 gm/dl [facility] HCT 41.4 34.9 - 44.4 % [facility] MCV 89 81 - 98 fl [facility] MCH 30.3 26.7 - 33.3 pg [facility] MCHC 34.1 32.1 - 35.9 gm/dl [facility] PLT 282 141 - 320 K/cmm [facility] RDW-CV 13.6 11.7 - 14.6 % [facility] Neutrophils 58.0 45.5 - 79.7 % [facility] Lymphocytes 30.1 15.0 - 46.8 % [facility] Monocytes 7.9 1.8 - 12.0 % [facility] Eosinophils 3.6 0.6 - 6.9 % [facility] Basophils 0.4 0.2 - 1.4 % [facility] ABS Neutrophils 5.17 2.20 - 8.85 K/cmm [facility] ABS Lymphs 2.68 1.09 - 3.30 K/cmm [facility] ABS Monocytes 0.70 0.1 - 0.8 K/cmm [facility] ABS Eosinophils 0.32 0.03 - 0.61 K/cmm [facility] ABS Basophils 0.03 0.01 - 0.11 K/cmm [facility] Type of Diff: Automated [facility] Blood specimen (specimen) 12/31/2008 19:56 EDT 12/31/2008 20:05 EDT us Jaya Dickens MD PACKAGES & DNA PROBE ORDERABLE S Final Result Performing Organization Address [facility] de Phone Number [facility] [address] [place] [address] * CREATININE (12/31/2008 19:56 EDT) Creatinine 0.80 0.7 - 1.5 mg/dl [facility] GFR, Calculated >60 ml/min/1.7 3m2 [facility] Blood specimen (specimen) 12/31/2008 19:56 EDT 12/31/2008 20:05 EDT Jaya Dickens MD CHEMISTRY & BLOOD GAS ORDERABL ES Final Result Performing Organization Address [facility] de Phone Number [facility] [address] [place] [address] * BUN (12/31/2008 19:56 EDT) BUN 12 10 - 26 mg/dl [facility] Blood specimen (specimen) 12/31/2008 19:56 EDT 12/31/2008 20:05 EDT Jaya Dickens MD CHEMISTRY & BLOOD GAS ORDERABL ES Final Result Performing Organization Address [facility] de Phone Number [facility] [address] [place] [address] * ELECTROLYTES (12/31/2008 19:56 EDT) Pathologist [facility] Sodium 141 136 - 145 mEq/L [facility] Potassium 4.1 3.5 - 5.0 mEq/L [facility] Chloride 104 96 - 110 mEq/L [facility] CO2 29 24 - 32 mEq/L [facility] Blood specimen (specimen) 12/31/2008 19:56 EDT 12/31/2008 20:05 EDT us Jaya Dickens MD CHEMISTRY & BLOOD GAS ORDERABL ES Final Result Performing Organization Address [facility] [[email or web address]] Co de Phone Number [facility] [address] [place] [address] * C-REACTIVE PROTEIN (12/31/2008 19:56 EDT) C-Reactive Protein <0.7 <1.0 mg/dl [facility] Blood specimen (specimen) 12/31/2008 19:56 EDT 12/31/2008 20:05 EDT us Jaya Dickens MD CHEMISTRY & BLOOD GAS ORDERABL ES Final Result [facility] [address] [place] [address] * CT HEAD WO CONTRAST (12/31/2008 18:11 EDT) Anatomical Region Laterality Modality Other 12/31/2008 18:1 1 EDT 01/01/2009 10:59 EDT Narrative 01/01/2009 10:[address] HEAD W/O CONTRAST ??Dec 31, 2008 6:12:28 PM Impression: 1. VPS revision with persistent ventriculomegaly, unchanged compared with 11/30/2008. 2. Findings consistent with Dandy-Walker malformation. MRI may be helpful in further evaluation to rule out additional anomalies. Clinical History: headache, s/p shunt revision Technique: Noncontrast axial CT images are obtained from the foramen magnum to the skull vertex. Comparison: 11/30/2008, 07/25/2008 Findings: The bones and soft tissues are unchanged compared with prior studies. A ventriculoperitoneal shunt extends from the body of the left lateral ventricle posteriorly and then travels inferiorly in the extracranial soft tissues adjacent to the right posterior skull. Again seen is ventriculomegaly and a large fourth ventricular cyst. The riki and medulla are compressed and displaced anteriorly toard the clivus ??and the fourth ventricle has herniated superiorly through the tentorium. These findings are stable compared with 11/30/2008, but worsened compared with July 2008. The patient has hypoplasia of the cerebellar vermis, elevation of the tentorium and torcular, and cystic dilatation of the fourth ventricle, consistent with Dandy-Walker malformation. 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 I have personally reviewed the images and the above interpretation and agree with the findings. Procedure Note Gianluca Issa MD / Gianluca Issa MD / Gianluca Issa MD - 01/01/2009 CT HEAD W/O CONTRAST Dec 31, 2008 6:12:28 PM Impression: 1. VPS revision with persistent ventriculomegaly, unchanged compared with 11/30/2008. 2. Findings consistent with Dandy-Walker malformation. MRI may be helpful in further evaluation to rule out additional anomalies. Clinical History: headache, s/p shunt revision Technique: Noncontrast axial CT images are obtained from the foramen magnum to the skull vertex. Comparison: 11/30/2008, 07/25/2008 Findings: The bones and soft tissues are unchanged compared with prior studies. A ventriculoperitoneal shunt extends from the body of the left lateral ventricle posteriorly and then travels inferiorly in the extracranial soft tissues adjacent to the right posterior skull. Again seen is ventriculomegaly and a large fourth ventricular cyst. The riki and medulla are compressed and displaced anteriorly toard the clivus and the fourth ventricle has herniated superiorly through the tentorium. These findings are stable compared with 11/30/2008, but worsened compared with July 2008. The patient has hypoplasia of the cerebellar vermis, elevation of the tentorium and torcular, and cystic dilatation of the fourth ventricle, consistent with Dandy-Walker malformation. 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 I have personally reviewed the images and the above interpretation and agree with the findings. Gianluca Brar MD IM CT ORDERABLES Fi nal Result * SHUNT SERIES (12/31/2008 18:04 EDT) Anatomical Region Laterality Modality Other 12/31/2008 18:0 4 EDT 12/31/2008 18:56 EDT Narrative 12/31/2008 18:56 EDT Shunt series with 2 views the skull one view of the chest and two-view the abdomen show a lucency in the tubing surrounding the reservoir at the skull. This may be normal variation of shunt hardware. The remaining shunt tubing appears intact. Procedure Note 12/31/2008 Shunt series with 2 views the skull one view of the chest and two-view the abdomen show a lucency in the tubing surrounding the reservoir at the skull. This may be normal variation of shunt hardware. The remaining shunt tubing appears intact. us Gianluca Brar MD IMG DIAGNOSTIC IMAGI NG ORDERABLES Final Result documented in this encounter Visit Diagnoses Diagnosis Headache(784.0) Headache S/P TRADING ASSISTANT shunt Presence of cerebrospinal fluid drainage device documented in this encounter Administered Medications Inactive Administered Medications - up to 3 most recent administrations Medication Order MAR Action Action Date Dose Rate Site acetaminophen (TYLENOL) tablet 1,000 mg 1,000 mg, oral, 4 TIMES DAILY PRN, Starting on Tue01/01/09 at 0143, Until Tue01/03/09 at 1658, Pain, STAT Given 01/01/2009 23:48 EDT 1,000 mg Given 01/01/2009 15:38 EDT 1,000 mg Given 01/01/2009 4:50 EDT 1,000 mg amoxicillin (AMOXIL) capsule 250 mg 250 mg, oral, EVERY 8 HOURS (3 times per day), 15 doses, First dose on Tue01/01/09 at 1515, Last dose on Tue01/06/09 at 0800, Routine Given 01/03/2009 8:00 EDT 250 m g Given 01/03/2009 0:00 EDT 250 mg Given 01/01/2009 23:40 EDT 250 mg citalopram (CELEXA) tablet 20 mg 20 mg, oral, 2 TIMES DAILY, First dose on Tue01/01/09 at 0900, Until Discontinued, STAT Given 01/03/2009 9:00 EDT 20 mg Given 01/02/2009 21:00 EDT 20 mg Given 01/01/2009 21:01 EDT 20 mg clonazepam (KLONOPIN) tablet 0.5 mg 0.5 mg, oral, 2 TIMES DAILY PRN, Starting on Tue01/02/09 at 2051, Until Tue01/03/09 at 1658, Anxiety, Routine Given 01/02/2009 21:23 EDT 0.5 mg diphenhydrAMINE (BENADRYL) capsule 25 mg 25 mg, oral, EVERY 6 HOURS PRN, Starting on Tue01/01/09 at 1522, Until Tue01/03/09 at 1658, Itching, Routine Given 01/01/2009 15:29 EDT 25 mg docusate sodium (COLACE) capsule 100 mg 100 mg, oral, 2 TIMES DAILY, First dose on Tue01/01/09 at 0900, Until Discontinued, STAT Given 01/03/2009 9:00 EDT 100 m g Given 01/02/2009 21:00 EDT 100 mg Given 01/01/2009 21:01 EDT 100 mg fentanyl citrate (PF) 50 mcg/mL injection 25-100 mcg 25-100 mcg, intravenous, EVERY 5 MIN PRN, Starting on Tue01/02/09 at 1417, Until Tue01/02/09 at 2000, Pain, Routine Given 01/02/2009 16:52 EDT 50 mcg Given 01/02/2009 16:34 EDT 50 mcg fentanyl citrate (PF) 50 mcg/mL injection 1 dose, Starting on Tue01/02/09 at 1631, Until Tue01/02/09 at 1634 HYDROmorphone (PF) (DILAUDID) 1 mg/mL injection 0.2-0.6 mg 0.2-0.6 mg, intravenous, EVERY 3 HOURS PRN, Starting on Tue01/01/09 at 0653, Until Tue01/03/09 at 1658, Pain, Routine Given 01/02/2009 19:55 EDT 0.6 mg Given 01/02/2009 11:55 EDT 0.6 mg Given 01/02/2009 8:36 EDT 0.4 mg HYDROmorphone (PF) (DILAUDID) 1 mg/mL injection 0.5 mg 0.5 mg, intravenous, NOW X1, 1 dose, On Tue12/31/08 at 1930, STAT Given 12/31/2008 19:30 EDT 0.5 mg HYDROmorphone (PF) (DILAUDID) 1 mg/mL injection 0.5 mg 0.5 mg, intravenous, NOW X1, 1 dose, On Tue12/31/08 at 2145, STAT Given 12/31/2008 21:45 EDT 1 mg HYDROmorphone (PF) (DILAUDID) 1 mg/mL injection 1 dose, Starting on Tue01/01/09 at 0738, Until Tue01/01/09 at 0745 methocarbamol (ROBAXIN) tablet 500-1,000 mg 500-1,000 mg, oral, EVERY 8 HOURS PRN, Starting on Tue01/01/09 at 0143, Until Tue01/03/09 at 1658, Other, muscle spasms, STAT Given 01/01/2009 19:53 EDT 1,000 mg Given 01/01/2009 6:39 EDT 1,000 mg morphine 10 mg/mL injection 1 dose, Starting on Tue01/02/09 at 1632, Until Tue01/02/09 at 1634 morphine injection 1-4 mg 1-4 mg, intravenous, EVERY 5 MIN PRN, Starting on Tue01/02/09 at 1417, Until Tue01/02/09 at 2000, Pain, Routine Given 01/02/2009 17:40 EDT 3 mg Given 01/02/2009 16:52 EDT 3 mg Given 01/02/2009 16:34 EDT 4 mg morphine injection 6 mg 6 mg, intravenous, NOW X1, 1 dose, On Tue01/01/09 at 0045, STAT Given 01/01/2009 0:45 EDT 6 mg Multivitamins with Minerals tablet 1 Tab 1 Tablet, oral, DAILY, First dose on Tue01/01/09 at 0900, Until Discontinued, STAT Given 01/03/2009 9:00 EDT 1 Tab let Given 01/01/2009 9:00 EDT 1 Tablet omeprazole (PRILOSEC) capsule 20 mg 20 mg, oral, DAILY, First dose on Tue01/01/09 at 0900, Until Discontinued, STAT Given 01/03/2009 9:00 EDT 20 mg Given 01/02/2009 19:37 EDT 20 mg Given 01/01/2009 9:00 EDT 20 mg ondansetron (PF) (ZOFRAN) 4 mg/2 mL injection 2-8 mg 2-8 mg, intravenous, EVERY 4 HOURS PRN, Starting on Tue01/01/09 at 0143, Until Tue01/03/09 at 1658, Nausea, STAT Given 01/03/2009 13:40 EDT 4 mg Given 01/01/2009 2:30 EDT 8 mg ondansetron (PF) (ZOFRAN) 4 mg/2 mL injection 4 mg 4 mg, intravenous, NOW X1, 1 dose, On Tue12/31/08 at 2330, STAT Given 12/31/2008 23:30 EDT 4 mg ondansetron (ZOFRAN-ODT) disintegrating tablet 4 mg 4 mg, oral, NOW X1, 1 dose, On Tue12/31/08 at 2045, STAT Given 12/31/2008 20:45 EDT 4 mg oxycodone (ROXICODONE) immediate release tablet 5-15 mg 5-15 mg, oral, EVERY 4 HOURS PRN, Starting on Tue01/01/09 at 0143, Until Tue01/03/09 at 1658, Pain, discomfort, STAT Given 01/03/2009 12:02 EDT 15 mg Given 01/03/2009 7:42 EDT 15 mg Given 01/03/2009 2:54 EDT 15 mg PEG 3350-Electrolytes (MIRALAX) packet 17 g 17 g, oral, 2 TIMES DAILY, First dose on Tue01/01/09 at 0200, Until Discontinued, STAT Given 01/03/2009 9:00 EDT 17 g Given 01/02/2009 21:00 EDT 17 g Given 01/01/2009 21:01 EDT 17 g ranitidine (ZANTAC) tablet 300 mg 300 mg, oral, AT BEDTIME, First dose on Tue01/01/09 at 0200, Until Discontinued, STAT Given 01/02/2009 19:39 EDT 300 mg Given 01/01/2009 21:01 EDT 300 mg sodium chloride 0.9 % with KCl 20 mEq/L infusion at 75 mL/hr, intravenous, CONTINUOUS, Starting on Tue01/01/09 at 0200, Until Tue01/03/09 at 1658, STAT New Bag 01/02/2009 18:48 EDT 75 mL/hr Given by Other 01/02/2009 16:11 EDT 75 mL/hr Rate Documented 01/01/2009 21:41 EDT 75 mL/hr documented in this encounter Discontinued Medications Medication Sig Discontinue Reason Start Date End Da te oxycodone (ROXICODONE) 5 mg immediate release tablet Take 1-3 Tabs by mouth every 4 hours as needed for Pain. discomfort 12/02/2008 01/03/2009 documented as of this encounter Historical Medications * This list may reflect changes made after this encounter. isometheptene-brittany taminophen-dichlo ralphenazone (MIDRIN) 325-65-100 mg per capsule Take 1 Cap by mouth 4 times daily as needed. 06/08/2010 added in this encounter Active and Recently Administered Medications Times are shown in EDT. Scheduled Medication Order 01/01/2009 01/02/2009 01/03/2009 amoxicillin (AMOXIL) capsule 250 mg (CANCELED) 250 mg, oral, EVERY 8 HOURS (3 times per day), 15 doses, First dose on Tue01/01/09 at 1515, Last dose on Tue01/06/09 at 0800, Routine 1515 (Given - Provider: Jason Devries)2340 (Given - Provider: Diomedes Lane) 0800 (Not Given - Provider: Brittany Talbert - Reason: NPO)1600 (Not Given - Provider: Brittany Talbert - Reason: Patient off unit) 0000 (Given - Provider: Deedee Diego, RN)0800 (Given - Provider: Jason Devries) citalopram (CELEXA) tablet 20 mg (CANCELED) 20 mg, oral, 2 TIMES DAILY, First dose on Tue01/01/09 at 0900, Until Discontinued, STAT 09 (Given - Provider: Jason Devries)2100 (Given - Provider: Diomedes Lane) 09 (Not Given - Provider: Britatny Talbert - Reason: NPO)2100 (Given - Provider: Deedee Diego, RN) 0900 (Given - Provider: Jason Devries) docusate sodium (COLACE) capsule 100 mg (CANCELED) 100 mg, oral, 2 TIMES DAILY, First dose on Tue01/01/09 at 0900, Until Discontinued, STAT 09 (Given - Provider: Jason Devries)2100 (Given - Provider: Diomedes Lane) 09 (Not Given - Provider: Brittany Talbert - Reason: NPO)2100 (Given - Provider: Deedee Diego, RN) 0900 (Given - Provider: Jason Devries) morphine injection 6 mg (COMPLETED) 6 mg, intravenous, NOW X1, 1 dose, On Tue01/01/09 at 0045, STAT 0045 (Given - Provider: Tim Ruelas) Multivitamins with Minerals tablet 1 Tab (CANCELED) 1 Tablet, oral, DAILY, First dose on Tue01/01/09 at 0900, Until Discontinued, STAT 899 (Given - Provider: Jason Devries) 899 (Not Given - Provider: Brittany Talbert - Reason: NPO) 899 (Given - Provider: Jason Devries) omeprazole (PRILOSEC) capsule 20 mg (CANCELED) 20 mg, oral, DAILY, First dose on Tue01/01/09 at 0900, Until Discontinued, STAT 899 (Given - Provider: Jason Devries) 899 (Not Given - Provider: Brittany Talbert - Reason: NPO)1936 (Given - Provider: Deedee Diego, RN - Comment: pt requested now with dinner, didn't receive this am) 899 (Given - Provider: Jason Devries) PEG 3350-Electrolytes (MIRALAX) packet 17 g (CANCELED) 17 g, oral, 2 TIMES DAILY, First dose on Tue01/01/09 at 0200, Until Discontinued, STAT 199 (Not Given - Provider: Christy Lockhart RN - Reason: NPO)899 (Given - Provider: Jason Devries)2100 (Given - Provider: Diomedes Lane) 899 (Not Given - Provider: Brittany Talbert - Reason: NPO)2099 (Given - Provider: Deedee Diego RN) 899 (Given - Provider: Jason Devries) ranitidine (ZANTAC) tablet 300 mg (CANCELED) 300 mg, oral, AT BEDTIME, First dose on Tue01/01/09 at 0200, Until Discontinued, STAT 199 (Not Given - Provider: Christy Lockhart RN - Reason: Other - Comment: Pt already took.)2100 (Given - Provider: Diomedes Lane) 1938 (Given - Provider: Deedee Diego, RN - Comment: pt requests to take this now with dinner.)2099 (Not Given - Provider: Deedee Diego RN - Reason: Other - Comment: pt med earlier during dinner) Continuous Medication Order 01/01/2009 01/02/2009 01/03/2009 sodium chloride 0.9 % with KCl 20 mEq/L infusion (CANCELED) at 75 mL/hr, intravenous, CONTINUOUS, Starting on Tue01/01/09 at 0200, Until Tue01/03/09 at 1658, STAT 0145 (New Bag - Provider: Christy Lockhart RN)2141 (Rate Documented - Provider: Diomedes Lane) 1611 (Given by Other - Provider: Jason Zimmer)1848 (New Bag - Provider: Brittany Talbert) PRN Medication Order 01/01/2009 01/02/2009 01/03/2009 acetaminophen (TYLENOL) tablet 1,000 mg (CANCELED) 1,000 mg, oral, 4 TIMES DAILY PRN, Starting on Tue01/01/09 at 0143, Until Tue01/03/09 at 1658, Pain, STAT 0450 (Given - Provider: Christy Lockhart RN)1538 (Given - Provider: Jason Devries)2348 (Given - Provider: Diomedes Lane) clonazepam (KLONOPIN) tablet 0.5 mg (CANCELED) 0.5 mg, oral, 2 TIMES DAILY PRN, Starting on Tue01/02/09 at 2051, Until Tue01/03/09 at 1658, Anxiety, Routine 2123 (Given - Provider: Deedee Diego RN) diphenhydrAMINE (BENADRYL) capsule 25 mg (CANCELED) 25 mg, oral, EVERY 6 HOURS PRN, Starting on Tue01/01/09 at 1522, Until Tue01/03/09 at 1658, Itching, Routine 1529 (Given - Provider: Jason Devries) fentanyl citrate (PF) 50 mcg/mL injection 25-100 mcg (CANCELED) 25-100 mcg, intravenous, EVERY 5 MIN PRN, Starting on Natalie 01/02/09 at 1417, Until Tue01/02/09 at 2000, Pain, Routine 1634 (Given - Provider: Jason Zimmer)1652 (Given - Provider: Jason Zimmer) HYDROmorphone (PF) (DILAUDID) 1 mg/mL injection 0.2-0.6 mg (CANCELED) 0.2-0.6 mg, intravenous, EVERY 3 HOURS PRN, Starting on Tue01/01/09 at 0653, Until Tue01/03/09 at 1658, Pain, Routine 0745 (Given - Provider: Jason Devries) 0836 (Given - Provider: Brittany Talbert)1155 (Given - Provider: Brittany Talbert)195 (Given - Provider: Deedee Diego RN) methocarbamol (ROBAXIN) tablet 500-1,000 mg (CANCELED) 500-1,000 mg, oral, EVERY 8 HOURS PRN, Starting on Tue01/01/09 at 0143, Until Tue01/03/09 at 1658, Other, muscle spasms, STAT 0639 (Given - Provider: Diomedes Lane)1953 (Given - Provider: Diomedes Lane) morphine injection 1-4 mg (CANCELED) 1-4 mg, intravenous, EVERY 5 MIN PRN, Starting on Natalie 01/02/09 at 1417, Until Natalie 01/02/09 at 2000, Pain, Routine 1634 (Given - Provider: Jason Zimmer)1652 (Given - Provider: Jason Zimmer)1740 (Given - Provider: Jason Zimmer) ondansetron (PF) (ZOFRAN) 4 mg/2 mL injection 2-8 mg (CANCELED) 2-8 mg, intravenous, EVERY 4 HOURS PRN, Starting on Tue01/01/09 at 0143, Until Tue01/03/09 at 1658, Nausea, STAT 0230 (Given - Provider: Christy Lockhart, WILLIAM) 1340 (Given - Provider: Jason Devries) oxycodone (ROXICODONE) immediate release tablet 5-15 mg (CANCELED) 5-15 mg, oral, EVERY 4 HOURS PRN, Starting on Tue01/01/09 at 0143, Until Tue01/03/09 at 1658, Pain, discomfort, STAT 0450 (Given - Provider: Christy Lockhart RN)1337 (Given - Provider: Jason Devries)2104 (Given - Provider: Diomedes Lane) 0224 (Given - Provider: Diomedes Lane)2245 (Given - Provider: Deedee Diego, RN) 0254 (Given - Provider: Deedee Diego, WILLIAM)0742 (Given - Provider: Jason Devries)1202 (Given - Provider: Jason Devries) documented in this encounter Orders Medications Ordered That Jairo ht Not Have Been Administered Count Last Ordered Date First Ordered Date atropine 0.1 mg/mL 10 mL syringe 0.5 mg 1 0 01/02/2009 meperidine (PF) (DEMEROL) 25 mg/0.5 mL injection 12.5 mg 1 01/02/2009 ondansetron (PF) (ZOFRAN) 4 mg/2 mL injection 2 mg 1 01/02/2009 promethazine (PHENERGAN) inj ection 6.25-12.5 mg 1 01/02/2009 albuterol (PROVENTIL HFA, VE NTOLIN HFA) inhaler 2 Puff 1 01/01/2009 bisacodyl (DULCOLAX) suppository 10 mg 1 hydrALAZINE (APRESOLINE) 10 mg in sodium chloride 0.9 % 50 mL IVPB 1 01/01/2009 isometheptene-acetaminophen- dichloralphena zone (MIDRIN) 325-65-100 mg per capsule 1 Cap 1 01/01/2009 magnesium hydroxide (MILK OF MAGNESIA) 400 mg/5 mL suspension 30 mL 1 01/01/2009 potassium chloride IVPB 20 mEq/100 mL 1 promethazine (PHENERGAN) tablet 12.5 mg 1 0 01/01/2009 senna (SENOKOT) tablet 1-2 Tab 1 01/01/2009 sodium phosphate (FLEET) enema 1 Enema 2 Diet Count Last Ordered Date First Orde red Date DIET REGULAR 1 01/02/2009 Nursing Count Last Ordered Date First Orde red Date APPLY WARMING BLANKET 1 01/02/2009 CARDIAC MONITORING 1 01/02/2009 MONITOR AIRWAY 1 01/02/2009 NOTIFY SERVICE 1 01/02/2009 PULSE OXIMETRY 1 01/02/2009 VITAL SIGNS 1 01/02/2009 OXYGEN THERAPY 1 01/01/2009 UP AD MELLY 1 01/01/2009 IV Count Last Ordered Date First Orde red Date IV REQUEST 1 01/01/2009 Admission Count Last Ordered Date First Orde red Date NOTIFY PPS OF DISCHARGE COMPLETE 1 01/04/20 09 NOTIFY PPS PATIENT TRANSFERRED OUT OF PACU 1 01/02/2009 ADMIT TO INPATIENT 2 01/01/2009 9 ADMITTING CONDITION 1 01/01/2009 PPS NOTIFICATION OF PATIENT ARRIVAL ON UNIT 1 01/01/2009 TEACHING SERVICE 1 01/01/2009 documented in this encounter Care Teams Watcher [employer] Relationship Specialty Start Date End Date Nimisha Padilla MD [address] [place] [address] PCP - General 11/30/08 01/21/09 documented as of this encounter
--- OUTSIDE RECORDS SUMMARY | 2024-03-28 11:13 | XMS_ITS | Encounter Summary ---
Author Organization [facility] Address [address] [place] [address] Care Team Providers Care Sporting Goods Sales Manager Name Role Phone Amanda Siegel MD Primary Care Provider [phone] Rain Scott NP Primary Care Provider [phone] Vivek Ohara DO Primary Care Provider [phone] Maury Ware DO Primary Care Provider [phone] Encounter Details Date Type Department Care Team (Late st Contact Info) Description 08/18/2010 Orders Only [facility] Neurology - [place] [address] [place] [address] Maldonado Mcnally MD [address] [place] [address], [address] [place] [address] Social History Tobacco Use Types Packs/Day Years [...] on filedocumented in this encounter Care Teams Sporting Goods Sales Manager Relationship Specialty Start Date End Date Amanda Siegel MD [address] [place] [address] PCP - General 08/04/09 12/25/12 Rain Scott NP [address] [place] [address] [address] [place] [address] PCP - General 12/26/12 11/28/13 Vivek Ohara DO [address] [place] [address] [address] [place] [address] PCP - General 11/29/13 06/09/17 Maury Ware DO [address] [place] [address] PCP - General 06/10/17 documented as of this encounter
--- OUTSIDE RECORDS SUMMARY | 2024-03-28 11:13 | XMS_ITS | Encounter Summary ---
Author Organization [facility] Address [address] [place] [address] Care Team Providers Care Vascular Specialists Name Role Phone Patrizia Fortune MD Primary Care Provider [phone] Encounter Details Date Type Department Care Team (Late st Contact Info) Description 04/28/2009 Orders Only [facility] Services - [facility] [address] [place] [id number] Kelechi Ponce MD [address] [place] [address] Social History Tobacco Use Types Packs/Day Years [...] Date/Time Associated Diagnosis Comments SURGICAL PATHOLOGY Routine 04/28/2009 0:00 EST documented in this encounter Results * SURGICAL PATHOLOGY (04/28/2009 0:00 EST) Pathology Report: SURGICAL PATHOLOGY REPORT ? Reports generated via electronic interface contain original data; ? however they are lacking the format of the original report. ? Caution should be taken when reading/interpreti ng unformatted reports. ? Name: ? LORENA, RADHA Adamson ? Accession #: ? [id number] ? : ? 1980 (Age: 28) ??F ? Collect Date: ? 04/28/2009 ? Location: ? [facility] ? Receive Date: ? 04/28/2009 ? Provider: KELECHI PONCE MD ? Copy to: PATRIZIA S GENOVEVA MD ? Final Pathologic Diagnosis: ? Esophagus, 40 cm, biopsies: ? - Squamocolumnar junction mucosa with mild chronic inflammation and reactive ? epithelial changes. ? Document reviewed and electronically signed by: ? Tamie Clark MD ? Report ??Date: 04/30/2009 17:38 ? By the signature above, the attending physician certifies that he/she has ? personally conducted a gross and/or microscopic examination of the described ? specimens and rendered or confirmed the above diagnosis. ? Specimen(s) Received: ? Bx esophagus 40 cm ? Clinical History: ? GERD ? Gross Description: ? Received in Ce's fixative labelled Blacklick, Radha and #1 bx ? esophagus 40 cm are four biopsies which vary in size from 0.2 x 0.2 x 0.1 cm up to 0.4 x 0.3 x 0.2 cm. ??The specimens are submitted intact as (A1) and (A2). ? (RUSS Tessitore)/ljn ? End of Report ? [facility] 04/28/2009 04/28/2009 9:0 8 EST us Kelechi Ponce MD PATHOLOGY ORDERABLES Final Result [facility] [address] [place] [address] documented in this encounter Visit Diagnoses Not on filedocumented in this encounter Care Teams Vascular Specialists Relationship Specialty Start Date End Date Patrizia Fortune MD [address] [place] [address] [place] [address] PCP - General 01/22/09 08/03/09 documented as of this encounter
--- OUTSIDE RECORDS SUMMARY | 2024-03-28 11:13 | XMS_ITS | Encounter Summary ---
Author Organization [facility] Address [address] [place] [address] Care Team Providers Care Accreditation Coordinator Name Role Phone Amanda Siegel MD Primary Care Provider [phone] Reason for Visit * Reason Comments Peripheral Neuropathy Having a lot of pa in Encounter Details Date Type Department Care Team (Late st Contact Info) Description 10/01/2010 Telephone [facility] Neurology - [address] [address] Maldonado Mcnally MD [address] [place] [address] [address] [place] [address] Peripheral Neuropathy (Having a lot of pain) Social History Tobacco Use Types Packs/Day Years [...] Telephone Encounter - Clotilde Man RN - 10/07/2010 1013 EDT TC to Pt. Will have PCP contact Dr. Mcnally via PAS. * Telephone Encounter - Maldonado Mcnally MD - 10/06/2010 1630 EDT Cltoilde Logan, Noted. If she is unwilling to increase Keppra, I would suggest that she wait for her appointment with Dr. Strong who can advise on management of her headaches. Thanks. RT * Telephone Encounter - Clotilde Man RN - 10/01/2010 1219 EDT TC To pt. C/o burning and tingling in head, more frequent, happened 5 times yesterday, lasting approximately 45 minutes each time. Stopped cymbalta, after allergic reaction, developed hives. Is on Keppra 750 mg bid and does not want to increase dose. documented in this encounter Plan of Treatment Not on file documented as of this encounter Visit Diagnoses Not on filedocumented in this encounter Discontinued Medications Medication Sig Discontinue Reason Start Date End Da te duloxetine (CYMBALTA) 30 mg capsule Take 1 Cap by mouth at bedtime. 09/01/2010 10/01/2010 documented as of this encounter Care Teams Accreditation Coordinator Relationship Specialty Start Date End Date Amanda Siegel MD [address] [place] [address] PCP - General 08/04/09 12/25/12 documented as of this encounter
--- OUTSIDE RECORDS SUMMARY | 2024-03-28 11:13 | XMS_ITS | Encounter Summary ---
Author Organization [facility] Address [address] [place] [address] Care Team Providers Care Graduate Fellow Name Role Phone Amanda Siegel MD Primary Care Provider [phone] Encounter Details Date Type Department Care Team (Late st Contact Info) Description 02/10/2010 Abstract Used for ABSTRACTING Data [phone] Amanda Siegel MD [address] [place], [place] [id number] Social History Tobacco Use Types Packs/Day Years [...] Diagnoses Not on filedocumented in this encounter Historical Medications * This list may reflect changes made after this encounter. esomeprazole (NEXIUM) 40 mg capsule Take 40 mg by mouth 2 times daily. 03/18/2010 clonAZEPAM (KLONOPIN) 0.5 mg tablet Take 0.5 mg by mouth 2 times daily. 03/18/2010 12/27/2012 added in this encounter Care Teams Graduate Fellow Relationship Specialty Start Date End Date Amanda Siegel MD [address] [place], [place] [address] PCP - General 08/04/09 12/25/12 documented as of this encounter
--- OUTSIDE RECORDS SUMMARY | 2024-03-28 11:13 | XMS_ITS | Encounter Summary ---
Author Organization [facility] Address [address] [place] [address] Care Team Providers Care Documentum Consultant Name Role Phone Amanda Siegel MD Primary Care Provider [phone] Reason for Visit * Reason Onset Date Comments Results 03/31/2010 CT results Encounter Details Date Type Department Care Team (Late st Contact Info) Description 03/31/2010 Telephone [facility] Neurosurgery - [facility] [address] [place], [place] [id number] Luisa Fontanez PA-C [address] [facility] [address] [place] [address] Results (CT results) Social History Tobacco Use Types Packs/Day Years [...] * Telephone Encounter - Lisa Gustafson - 03/31/2010 4431 EST Patient calling looking for results of CT done in [facility]. She believes she had it done on 03/19. documented in this encounter Plan of Treatment Not on file documented as of this encounter Visit Diagnoses Not on filedocumented in this encounter Care Teams Documentum Consultant Relationship Specialty Start Date End Date Amanda Siegel MD [address] [place] [address] PCP - General 08/04/09 12/25/12 documented as of this encounter
--- OUTSIDE RECORDS SUMMARY | 2024-03-28 11:13 | XMS_ITS | Encounter Summary ---
Author Organization [facility] Address [address] [place] [address] Care Team Providers Care Research Professional Name Role Phone Kirk Siegel MD Primary Care Provider [phone] Encounter Details Date Type Department Care Team (Late st Contact Info) Description 02/20/2010 Results Only [facility] [phone] Crissy Lewis MD [address] [place] [address] Social History Tobacco Use Types Packs/Day Years [...] Date/Time Associated Diagnosis Comments SURGICAL PATHOLOGY Routine 02/20/2010 0:00 EDT documented in this encounter Results * SURGICAL PATHOLOGY (02/20/2010 0:00 EDT) Pathology Report: SURGICAL PATHOLOGY REPORT ? Reports generated via electronic interface contain original data; ? however they are lacking the format of the original report. ? Caution should be taken when reading/interpreti ng unformatted reports. ? Name: ? LORENA, RADHA L ? Accession #: ? [id number] ? : ? 1980 (Age: 29) ??F ? Collect Date: ? 02/20/2010 ? Location: ? [facility] ? Receive Date: ? 02/23/2010 ? Provider: CRISSY LEWIS MD ? Copy to: KIRK SIEGEL MD ? Final Pathologic Diagnosis: ? Endometrium, biopsy: ? - ??Benign secretory endometrium. ? Document reviewed and electronically signed by: ? HAMZAH CONTRERAS MD ? Report ??Date: 02/25/2010 11:46 ? By the signature above, the attending physician certifies that he/she has ? personally conducted a gross and/or microscopic examination of the described ? specimens and rendered or confirmed the above diagnosis. ? Specimen(s) Received: ? EM biopsy ? Clinical History: ? Oligomenorrhea with LMP May 2009; LMP: 05/2009 ? Gross Description: ? Received in formalin labelled Lorena, Radha and endometrium is a 1.5 x 1.5 x 0.3 cm aggregate of mariscal tissue fragments. ??The specimen is submitted ? entirely in one cassette following filtration. ??(ADante Orellana)/ljn ? End of Report ? [facility] 02/20/2010 02/23/2010 8:2 9 EDT us Crissy Lewis MD PATHOLOGY ORDERABLES Final Resu lt Performing Organization Address City/State/[facility] Co de Phone Number [facility] [address] [place] [address] documented in this encounter Visit Diagnoses Not on filedocumented in this encounter Care Teams Research Professional Relationship Specialty Start Date End Date Kirk Siegel MD [address] [place] [address] PCP - General 08/04/09 12/25/12 documented as of this encounter
--- OUTSIDE RECORDS SUMMARY | 2024-03-28 11:14 | XMS_ITS | Encounter Summary ---
Author Organization [facility] [place] [address] Care Team Providers Care Voice Studies Director Name Role Phone Wallace Negron APRN Primary Care Provider [phone] Reason for Referral * Diagnostic Test (Routine) - Closed Specialty Diagnoses / Procedures Referred By Mari perez Referred To Contact Radiology Diagnoses Other specified symptoms and signs involving the digestive system and abdomen Procedures CT Guided Biopsy Lymph Node (Chest/Abd/Pelvis) CT Guided Biopsy Peritoneal/Omental Wallace Negron APRN [address] [place] [address] [employer] [place] [address] Referral ID Status Reason Start Date Expiration Date V isits Requested Visits Authorized [id number] Closed Specialty Service Requested 06/18/2021 12/16/2022 1 1 Reason for Visit * Diagnostic Test (Routine) - Closed Specialty Diagnoses / Procedures Referred By Mari perez Referred To Contact Radiology Diagnoses Other specified symptoms and signs involving the digestive system and abdomen Procedures CT Guided Biopsy Lymph Node (Chest/Abd/Pelvis) CT Guided Biopsy Peritoneal/Omental Wallace Negron APRN [address] [place] [address] [place] [address] Referral ID Status Reason Start Date Expiration Date V isits Requested Visits Authorized [id number] Closed Specialty Service Requested 06/18/2021 12/16/2022 1 1 Encounter Details Date Type Department Care Team (Late st Contact Info) Description 08/26/2021 12:21 PM EDT - 08/26/2021 11:59 PM EDT Hospital Encounter CT Scan at [facility] [place] [address] Wallace Negron R, CIRCUS TRAINER [address] [place] [address] Abdominal mass, unspecified abdominal location; Other specified symptoms and signs involving the digestive system and abdomen Discharge Disposition: Home Social History Tobacco Use Types Packs/Day Years Used Date Smoking Tobacco: Never Smokeless Tobacco: Never Alcohol Use Standard Drinks/Week Comments Not Currently 0 (1 standard drink = 0.6 oz pur e alcohol) Sex and Gender Information Value Date Recorded Sex Assigned at Not on file Gender Identity Not on file Sexual Orientation Not on file documented as of this encounter Last Filed Vital Signs Vital Sign Reading Time Taken Comments Blood Pressure 132/78 08/26/2021 2:30 PM EDT Pulse 106 08/26/2021 1:40 PM EDT Temperature 36.8 ??C (98.2 ??F) 08/26/2021 12:37 PM E DT Respiratory Rate 18 08/26/2021 2:30 PM EDT Oxygen Saturation 100% 08/26/2021 2:30 PM EDT Inhaled Oxygen Concentration - - Weight - - Height - - Body Mass Index - - documented in this encounter Discharge Instructions * Discharge Instructions* Jameel Baxter LPN - 08/26/2021 2:02 PM EDT [facility] Vascular and Interventional Radiology Biopsy Discharge Instructions Abdominal biopsy: call your doctor immediately if you develop a sudden onset of weakness, increasedpain or swelling at the biopsy site or heavy bleeding at the biopsy site. Activity And Diet: Go home and rest quietly for the remainder of the day. You may resume your normal activities tomorrow. Resume your usual diet after the procedure. Do not drive, sign any important/legal documents, or make any important decisions for 24 hours following sedation medications. When to call your healthcare provider: If you see any redness, swelling or drainage at the biopsy site. If you develop chills. If you have a fever greater than or equal to 101 degrees Fahrenheit. If you develop pain around the biopsy site. Bandage: Check the dressing/bandaid throughout the day for an increase in drainage. Keep the biopsy site dryfor 24 hours. Replace the bandaid as needed. You may shower 24 hours after the biopsy. Medication: DO NOT take aspirin-containing products, ibuprofen, or blood-thinning medication for the next 24 hours unless your clinician says you may do so. Generally you may use acetaminophen as needed for discomfort unless you have liver disease and are instructed not to take acetaminophen. Biopsy Results The results of your biopsy should be available within 5 business days and will be reported to you by your primary home health care case manager or the clinician who ordered the biopsy. Please do not call us for results as we will not have them. If you have not been contacted by your clinician within 5 business days you should call that officefor further information. When to call the Interventional Radiology Department: Please call with any questions or concerns. If it is during regular office hours, please call [phone]. If it is after regular office hours, or on weekends or holidays, please call [phone] and ask to speak to the Retail Event Coordinator environmental technician for Interventional Radiology. You have received medication during your procedure to help lessen anxiety and keep you comfortable.These medications affect judgement and reaction time. We recommend that you do not drive, operate equipment, sign any important documents, or smoke unattended for 24 hours following your procedure. Because of the sedation, be careful on stairs, as you may be unsteady on your feet. You may resume your regular diet as tolerated. IV site -- slight redness, or tenderness is normal, you can use a warm compress. If tenderness and redness increases or foul drainage occurs, please contact your MDante D. Revised 02/22/19 documented in this encounter Medications at Time of Discharge Medication Sig Dispensed Refills Start Date End Date BACLOFEN ORAL Take 25 mg by mouth as needed. acetaminophen-codeine (Tylenol #3) 300-30 mg Tablet Take 1 tablet by mouth Every 4 hours as needed. esomeprazole (NexIUM) 40 mg Capsule, Delayed Release(E.C.) Take 40 mg by mouth 2 times daily. 03/16/2021 FLUoxetine (PROzac) 20 mg Capsule Take 20 mg by mouth Daily. LORazepam (Ativan) 0.5 mg Tablet Take 0.5 mg by mouth 3 times daily as needed. 05/29/2021 metFORMIN (Glucophage) 500 mg Tablet Take 500 mg by mouth 2 times daily. 03/27/2021 promethazine (Phenergan) 25 mg Tablet TAKE 1 TABLET BY MOUTH THREE TIMES A DAY NEEDED FOR NAUSEA AND VOMITING 06/11/2021 documented as of this encounter Progress Notes * Giovanni Robles PA - 08/26/2021 12:42 PM EDT Interventional Radiology Interval H&P: Procedure: Abd lymph node biopsy The patient's history and physical exam have been reviewed and completed. There has been no interval change from that of the pre-operative history and physical exam done within the last 30 days. Physical Exam: Cardiovascular: Regular, Normal Pulmonary: Breath sounds clear to auscultation The planned procedure (and sedation plan if appropriate), its benefits and risks, and alternatives were discussed with the patient. The patient consented to the procedure. The indications for the procedure are still present. Pre-sedation Assessment: Sedation Plan: moderate (conscious sedation) ASA: 2: Patient with mild systemic disease Mallampati: III: only the base of the uvula can be seen Confirm NPO status: Yes History of anesthetic complications: No Current medications reviewed: Yes Allergies reviewed: Yes * Vivek Green RN - 08/26/2021 8:30 AM EDT [facility]AB[facility] Name: RADHA CARRILLO Date of : 1980 AGE: 41 y.o. Address: [address] [address] (home) Mobile: Telephone Information: Referring Provider: Wallace Negron REASON FOR VISIT: Order Questions Answers Where will study be performed? [facility] Radiology [120] Is the patient on anticoagulant / antiplatelet therapy ? No Reason for exam and clinical history: Tumor of ABD needs biopsy. Very firm abdomen found on my first exam of patient. CT performed and the impression is: Interval worsening apparent mesenteric mass over time. No evidence of bowel obstruction or vascular occlusion. Findings could represent mesenteric panniculitis, lymphoma or carcinoid tumor. I am being instructed that perhaps a biopsy of her abd tissue would be beneficial. Please consider consultation. Clinical information / lu questions for radiologist: Outside order- in media tab Is the patient ? No Does the patient have any pertinent outside imaging? Yes Allergies Allergen Reactions ??? Nitrofurantoin Monohyd/M-Cryst ??? Rofecoxib ??? Sulfa (Sulfonamide Antibiotics) ??? Topiramate Pertinent PMH: There is no problem list on file for this patient. Pertinent PSH: No past surgical history on file. Date/Procedure Meds given/comments 08/26/2021 CT Guided Biopsy Fentanyl mcg IV Midazolam mg IV 0830 to procedure room CT5 via stretcher. Onto table supine. All monitors, O2, safety strap in place. Meds per protocol. Laboratory Results: documented in this encounter Plan of Treatment Not on file documented as of this encounter Procedures Procedure Name Priority Date/Time Associated Diagnosis Comments CT GUIDED BIOPSY LYMPH NODE(CHEST/ABD/PELVIS) Routine 08/26/2021 1:48 PM EDT Other specified symptoms and signs involving the digestive system and abdomen IMMUNOPHENOTYPING FLOW CYTOMETRY (BLOOD) Routine 08/26/2021 1:35 PM EDT FLOW CYTOMETRY REPORT Routine 08/26/2021 1:35 PM EDT SURGICAL PATHOLOGY REPORT Routine 2021 1:35 PM EDT POCT GLUCOSE Routine 08/26/2021 12:54 PM EDT SPECIMEN TO PATHOLOGY Routine 08/26/2021 12:54 PM EDT documented in this encounter Results * CT Guided Biopsy Lymph Node (Chest/Abd/Pelvis) (08/26/2021 1:48 PM EDT) Anatomical Region Laterality Modality Computed Tomogra phy Impressions 08/26/2021 1:58 PM EDT Impression: Technically successful core needle CT guided biopsy of a LEFT para-aortic lymph node. Benefits Officer(s): Resident/Fellow: None Attending: Jarvis Garrido MD Procedure/Teaching Attestation: ??I performed the procedure. Moderate Sedation Attestation: I was present during the intra-service time as documented by IR nurse. Thank you for letting us participate in the care of this patient. ??If you are a health care provider and have any questions regarding this report, please contact the number below. ??For patients who have questions please contact the health specialist wound care that requested your imaging first. ? Electronically signed by: Jarvis Garrido MD, [facility] ([phone]), at 08/26/2021 1:58 PM Narrative 08/26/2021 1:58 PM EDT RADIOLOGY PROCEDURE NOTE Procedure: CT Guided biopsy of LEFT para-aortic lymph node . Indication for Procedure: Tumor of ABD needs biopsy. Very firm abdomen found on my first exam of patient. CT performed and the impression is: Interval worsening apparent mesenteric mass over time. No evidence of bowel obstruction or vascular occlusion. Findings could represent mesenteric panniculitis, lymphoma or carcinoid tumor. I am being instructed that perhaps a biopsy of her abd tissue would be beneficial. Please cons. Consent: After discussing the risks (including infection, hemorrhage, damage to surrounding structures, respiratory depression) and benefits, the patient consented to the procedure. Method of Sedation: ??Due to the painful nature of the procedure, patient received split doses of intravenous fentanyl and midazolam from the IR nurse while pulse, pressure, and oxygen saturation were continuously monitored. 1% lidocaine was used for local analgesia. Technique: Prior to beginning the procedure, a standard time out Moment of Truth was performed. The patient was positioned prone on the CT table. ??An initial localizing CT scan of the abdomen was obtained and the skin entry site was marked on the skin with the assistance of the CT laser lights. The skin was prepped and draped in the usual sterile fashion. Local anesthesia provided with 1% lidocaine. A 19 ga introducer needle was directed to the target lesion with the assistance of CT fluoroscopy. Coaxially, 7 core biopsies were taken. The needle was removed. Sterile gauze dressing was applied. A post-procedure non-contrast CT scan was obtained. 5 samples were sent to cytology and 2 samples were sent for flow cytometry. Medications: Please see EMR Contrast: None EBL: <5 cc Complications: No immediate Specimens: 7 core biopsy samples of the LEFT para-aortic lymph node. Findings: Pre-procedure planning CT exam of the abdomen showed an enlarged LEFT periaortic lymph node. ??Post-biopsy CT showed no hematoma. Procedure Note Jarvis Garrido MD - 08/26/2021 RADIOLOGY PROCEDURE NOTE Procedure: CT Guided biopsy of LEFT para-aortic lymph node . Indication for Procedure: Tumor of ABD needs biopsy. Very firm abdomenfound on my first exam of patient. CT performed and the impression is: Intervalworsening apparent mesenteric mass over time. No evidence of bowel obstruction orvascular occlusion. Findings could represent mesenteric panniculitis, lymphoma or carcinoid tumor. I am being instructed that perhaps a biopsy of her abdtissue would be beneficial. Please cons. Consent: After discussing the risks (including infection, hemorrhage,damage to surrounding structures, respiratory depression) and benefits, thepatient consented to the procedure. Method of Sedation: Due to the painful nature of the procedure, patient received split doses of intravenous fentanyl and midazolam from the IRnurse while pulse, pressure, and oxygen saturation were continuously monitored.1% lidocaine was used for local analgesia. Technique: Prior to beginning the procedure, a standard time out Momentof Truth was performed. The patient was positioned prone on the CT table.An initial localizing CT scan of the abdomen was obtained and the skin entrysite was marked on the skin with the assistance of the CT laser lights. Theskin was prepped and draped in the usual sterile fashion. Local anesthesia providedwith 1% lidocaine. A 19 ga introducer needle was directed to the target lesionwith the assistance of CT fluoroscopy. Coaxially, 7 core biopsies were taken.The needle was removed. Sterile gauze dressing was applied. A post-procedure non-contrast CT scan was obtained. 5 samples were sent to cytology and 2 samples were sent for flowcytometry. Medications: Please see EMR Contrast: None EBL: <5 cc Complications: No immediate Specimens: 7 core biopsy samples of the LEFT para-aortic lymph node. Findings: Pre-procedure planning CT exam of the abdomen showed an enlargedLEFT periaortic lymph node. Post-biopsy CT showed no hematoma. IMPRESSION Impression: Technically successful core needle CT guided biopsy of aLEFT para-aortic lymph node. Benefits Officer(s): Resident/Fellow: None Attending: Jarvis Garrido MD Procedure/Teaching Attestation: I performed the procedure. Moderate Sedation Attestation: I was present during the intra-service timeas documented by IR nurse. Thank you for letting us participate in the care of this patient. If youare a health care provider and have any questions regarding this report,please contact the number below. For patients who have questions please contactthe health specialist wound care that requested your imaging first. Electronically signed by: Jarvis Garrido MD, [facility]([phone]), at 08/26/2021 1:58 PM Wallace Negron CIRCUS TRAINER IMG CT ORDERABLES * Surgical Pathology Report (08/26/2021 1:35 PM EDT) Final Diagnosis [id number] ? Location: [facility] [place] The signing pathologist has (i) examined the relevant preparation(s) for the specimen(s) and (ii) rendered or confirmed the diagnosis(es). . ?Surgical Pathology DIAGNOSIS A. LYMPH NODE, RETROPERITONEAL LYMPH NODE, BIOPSY (MULTIPLE) ?? 1. Follicular lymphoma, low grade (grade 1 of 3) ?? 2. The Ki67 proliferation index is estimated at 10-20% Electronically signed by: ?Randy Her MD Verified: ??08/28/2021 20:03 ??Hematopathologist Performed at: ??-[facility] Dept. of Pathology, [place], [place] DISCUSSION Concurrent flow cytometry studies demonstrated a kappa-restricted CD10+ mature B-cell population, compatible with the morphologic findings and above diagnosis (see # [id number]). ADDITIONAL STUDIES MICROSCOPIC DESCRIPTION ? The histologic preparation contains thin/fragmented needle core sections of lymph node tissue. No areas of clearly identifiable rosemary capsule are appreciated, and evaluation of rosemary architecture is suboptimal needle biopsies. Some of the biopsy fragments have a vaguely nodular appearance, but the nodules lack normal lymphoid follicle features, such as a mantle cuff, polarity, and tingible body macrophages. These nodules do not seem to have a 'wmke-wq-enbf' configuration, and some of the tissue fragments do not appear to have much nodularity. The high- power cytomorphology of the follicles reveal only rare centroblasts (<5/hpf) in a background with many intermediate-sized centrocytic cells. No areas of coagulative necrosis are appreciated. No areas with an obvious diffuse growth pattern or sheet- like aggregates of centroblastic cells are seen. No metastatic non-hematologic malignant cells are appreciated. IMMUNOHISTOCHEMISTR Y STUDIES Block: ? A2 ? Fixative: ??Formalin ANTIBODY: ??RESULT/COMMENT CD3 ?(-), scattered small background T-cells stain CD10 ? (+), nodular areas highlighted CD20 ? (+), strong uniform lymphoma staining CD21 ? (-), MCFP meshworks highlighted, no overtly diffuse areas seen BCL2 ? (+), moderate-strong diffuse staining, + BCL2/BCL6 coexpression BCL6 ? (+), nodular areas highlighted, + BCL2/BCL6 coexpression Ki67 ? (+), proliferation estimated at 10-20% CMYC ? (-), few cells weakly stain (~5-10%) Note: The immunoperoxidase stains reported above were developed and their performance characteristics determined by [facility]. They have not been cleared or approved by the U.S. Food and Drug Administration, although such approval is not required for analyte-specific reagents of this type. Appropriate positive and negative controls are included for each case. SPECIMEN(S) SUBMITTED A - Retroperitoneal Lymph node, biopsy (Multiple) . CLINICAL INFORMATION 41-year-old female with mesenteric mass and RP LAD presenting for biopsy for tissue diagnosis SPECIMEN PROCESSING A - Labeled/Fixative: Patient demographics, formalin. Quantity/Size: Multiple, ranging from 0.3 x 0.1 cm to 1.0 x 0.1 cm Tissue Description: [place]-white needle core biopsies. Sections/Processing : Entirely submitted in 2 cassettes labeled A1-A2. ??sns 08/28/2021 8:03 PM EDT [facility] LYMPH NODE SPECIMEN / Unknown 08/26/2021 1:35 PM EDT 08/26/2021 1:35 PM EDT Jarvis Garrido MD PATHOLOGY/CYTOLOGY ORDERABLES [facility] [place] [place] [address] * Flow Cytometry Report (08/26/2021 1:35 PM EDT) Flow Cytometry Report [id number] ? Location: [facility] [place] The signing pathologist has (i) examined the relevant preparation(s) for the specimen(s) and (ii) rendered or confirmed the diagnosis(es). . ?Flow Cytometry DIAGNOSIS LYMPH NODE, LEFT PARA-AORTIC - FLOW CYTOMETRY: ?? 1. A kappa-restricted CD10+ B-cell population is detected (see comment) ?? 2. No specific bailey-T-cell marker aberrancies are identified COMMENT: The findings indicate tissue involvement by a neoplastic mature B-cell proliferation. The CD10+ immunophenotype is not sufficiently specific for disease subcategorization, but does suggest a lymphoma of germinal center origin. Definitive classification of this process will require correlation with the morphologic findings in the primary biopsy report (see # [id number]). Electronically signed by: ?Randy Her MD Verified: ??08/27/2021 14:04 ??Hematopathologist Performed at: ??-[facility] Dept. of Pathology, [place], [place] DISCUSSION Cell viability in the [id number] low-SSC scatterplot region was 78% as assessed by 7-AAD exclusion. The lymphocyte enriched gate represents about 85% of the total events, and this gated population consists mostly of T-cells (14%), B-cells (84%), and NK-cells (1%). The T-cells show a CD4:CD8 ratio of about 2.9:1, and no bailey- T-cell marker aberrancy is identified. A monotypic B-cell population is detected (~62% of the lymphocytes) which expresses CD10, CD19, CD20, CD23 (partial), CD38 (partial), CD45, FMC7 (dim, partial), and kappa light-chain restriction; and negative for CD5 and the remaining selected markers. Flow analysis is an ancillary study. A definite diagnosis requires correlation with the morphologic features of this process and if necessary, correlation with other ancillary studies like immunohistochemistr y, enzyme cytochemistry and/or cyto/ molecular genetics. This test was developed and its performance characteristics determined by the Clinical Flow Cytometry Laboratory at [facility]. It has not been cleared or approved by the U.S. Food and Drug Administration. ??The FDA has determined that such clearance or approval is not necessary. ??This test is used for clinical purposes. ??It should not be regarded as investigational or for research. This laboratory is certified under the Clinical Laboratory Improvement Act of 1988 (CLIA) as qualified to perform high complexity clinical laboratory testing. SPECIMEN PROCESSING [id number] Cells for immunophenotypic analysis were derived from left para-aortic lymph node. CD45 vs side scatter gating was utilized to identify a lymphocyte analysis region that comprises approximately 83-87% of all cells. The following markers were assessed: CD2, CD3, CD4, CD5, CD7, CD8, CD10, CD19, CD20, CD23, CD38, CD45, CD56, FMC-7, kappa light chain, and lambda light chain. CLINICAL INFORMATION A 41 year old woman who underwent CT-guided biopsy of a left para-aortic lymph node. [facility] 08/26/2021 1:35 PM EDT Jarvis Garrido MD PATHOLOGY/CYTOLOGY ORDERABLES Performing Organization Address City/[facility]/ZIP Co de Phone Number [facility] [place] [address] * Immunophenotyping Flow Cytometry (08/26/2021 1:35 PM EDT) Immunophenotyping Flow See Comment [facility] Comment: When completed by the Pathologist, the Flow Cytometry Report ([id number]) will display under the Pathology Results section within eDH. Other 08/26/2021 1:35 PM EDT 08/26/2021 1:57 PM EDT Narrative Resulting Agency Comment Spec In Lab Wallace Negron APRN HEMATOLOGY ORDERAB LES Performing Organization Address City/[facility]/ZIP Co de Phone Number [facility] [place] [address] * POCT Glucose (08/26/2021 12:54 PM EDT) Glucose, POC 85 65 - 199 mg/dL [facility] Comment: Supplemental ranges: <140 mg/dL before meals <180 mg/dL all other times of the day Blood 08/26/2021 12:5 4 PM EDT 08/26/2021 12:54 PM EDT Wallace Negron APRN POINT OF CARE TEST ORDERABLES [facility] [place] [address] * Specimen to Pathology (08/26/2021 12:54 PM EDT) AP Specimen 08/26/2021 12:5 4 PM EDT 08/26/2021 12:54 PM EDT Narrative [facility] - 08/26/2021 12:54 PM EDT Specimen requisition ordered. ??Separate Pathology report to follow Wallace Negron APRN PATHOLOGY/CYTOLOGY ORDERABLES Performing Organization Address City/[facility] Co de Phone Number [facility] [place] [address] * Hemogram (08/26/2021 12:07 PM EDT) White Blood Cell 8.0 4.0 - 9.5 x10(3)/[facility] LABORATORY Red Blood Cell 4.64 4.00 - 5.21 x10(6)/[facility] LABORATORY Hemoglobin 13.8 11.7 - 15.5 g/dL [facility] Hematocrit 41.1 35.7 - 45.8 % [facility] Mean Cell Volume 88.6 82.6 - 94.4 fL [facility] Mean Cell Hemoglobin 29.7 27.1 - 32.0 pg [facility] Mean Cell Hemoglobin Concentration 33.6 31.7 - 35.0 g/dL [facility] Platelet 272 145 - 357 x10(3)/[facility] LABORATORY RDW Standard Deviation 40.3 37.0 - 46.0 fL [facility] RDW coefficient of variation 12.4 11.5 - 14.1 % [facility] Mean Platelet Volume 10.7 7.6 - 12.9 fL [facility] NRBC% auto 0.0 % [facility] NRBC Absolute 0.000 0.000 - 0.000 x10(3)/mcL [facility] Blood 08/26/2021 12:0 7 PM EDT 08/26/2021 12:17 PM EDT Narrative Resulting Agency Comment Spec In Lab Wallace Negron APRN HEMATOLOGY ORDERAB LES [facility] [place] [address] documented in this encounter Visit Diagnoses Diagnosis Abdominal mass, unspecified abdominal location Other specified symptoms and signs involving the digestive system and abdomen documented in this encounter Administered Medications Inactive Administered Medications - up to 3 most recent administrations Medication Order MAR Action Action Date Dose Rate Site fentaNYL (pf) (50 mcg/mL) multi-dose injection 25-50 mcg 25-50 mcg, Intravenous, EVERY 3 MIN PRN, Starting on Tue08/26/21 at 1250, Until Tue08/26/21 at 1535, Pain, per unit protocol, - Start dose 50 mcg (reduce dose to 25 mcg if history of sedation sensitivity). - Titration dose 25-50 mcg IV, (based on patient response) every 3 minutes PRN, to maintain procedural pain less than 2 per pain Scale. Maximum dose: 50 mcg/dose, 250 mcg/hour For use in Interventional Radiology (IR) only for procedural sedation with direct provider supervision and verbal order., Angio/IR (Intra-Procedure), Routine Given 08/26/2021 1:30 PM EDT 50 mcg Given 08/26/2021 1:20 PM EDT 50 mcg Given 08/26/2021 1:15 PM EDT 50 mcg midazolam (pf) (Versed) (1 mg/mL) multi-dose injection 0.5-1 mg 0.5-1 mg, Intravenous, EVERY 3 MIN PRN, Starting on Tue08/26/21 at 1250, Until Tue08/26/21 at 1535, Sleep, - Start dose; 1 mg (Reduce dose to 0.5 mg if history of sedation sensitivity). - Titration dose: 0.5 mg - 1 mg (based on patient response) every 3 minutes PRN to obtain RASS score of -3. Maximum dose: 1 mg per dose, 5 mg/hour. For use in Interventional Radiology (IR) only for procedural sedation with direct provider supervision and verbal order., Angio/IR (Intra-Procedure), Routine Given 08/26/2021 1:31 PM EDT 1 mg Given 08/26/2021 1:20 PM EDT 1 mg Given 08/26/2021 1:15 PM EDT 1 mg documented in this encounter Care Teams Voice Studies Director Relationship Specialty Start Date End Date Wallace Negron, CIRCUS TRAINER [address] [place] [address] PCP - General Family Medicine 08/26/21 documented as of this encounter
--- OUTSIDE RECORDS SUMMARY | 2024-03-28 11:14 | XMS_ITS | Encounter Summary ---
Author Organization [facility] Address [address] [place] [address] Care Team Providers Care Box Office Clerk Name Role Phone Unavailable Primary Care Provider Unavailabl e Encounter Details Date Type Department Care Team (Late st Contact Info) Description 01/05/2002 9:32 EDT - 01/05/2002 11:59 EDT Hospital Encounter [address] [address] Jareth Ortega MD [address] [facility], [address] [place] [id number] Discharge Disposition: Auto Discharge Social History Tobacco Use Types Packs/Day Years Used Date Smoking Tobacco: Never Assessed Comments Unknown Sex and Gender Information Value Date Recorded Sex Assigned at Not on file Legal Sex Female 17:25 EST Gender Identity Not on file Sexual Orientation Not on file documented as of this encounter Discharge Disposition Disposition Code Departure Means Destination Auto Discharge documented in this encounter Plan of Treatment Not on file documented as of this encounter Procedures Procedure Name Priority Date/Time Associated Diagnosis Comments CT HEAD WO CONTRAST Routine 01/05/2002 9:47 EDT documented in this encounter Results * CT HEAD WO CONTRAST (01/05/2002 9:47 EDT) Anatomical Region Laterality Modality Other 01/05/2002 9:47 EDT Impressions 02/03/2009 1:40 EDT IMPRESSION: Relatively little interval change, shunt tube identified, larger vermian defect seen with a large midline cyst posteriorly. 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 /godwin Narrative 02/03/2009 1:[address], HYDROCEPHALUS R/O F/UP CT OF THE BRAIN WITHOUT CONTRAST CLINICAL: Follow-up for hydrocephalus. TECHNICAL FACTORS: Three and five-millimeter thick cuts from the foramen magnum through the vertex respectively. FINDINGS: Shunt tube is identified entering from a right parietal approach terminating in the 3rd ventricle. There is a large midline cyst posteriorly. No hemorrhage is identified. Compared with a scan from 12/31, there has been little interval change. The temporal horns may be minimally less prominent. Procedure Note Aquilino Solorzano MD - 02/03/[address], HYDROCEPHALUS R/O F/UP CT OF THE BRAIN WITHOUT CONTRAST CLINICAL: Follow-up for hydrocephalus. TECHNICAL FACTORS: Three and five-millimeter thick cuts from the foramen magnum through the vertex respectively. FINDINGS: Shunt tube is identified entering from a right parietal approach terminating in the 3rd ventricle. There is a large midline cyst posteriorly. No hemorrhage is identified. Compared with a scan from 12/31, there has been little interval change. The temporal horns may be minimally less prominent. IMPRESSION IMPRESSION: Relatively little interval change, shunt tube identified, larger vermian defect seen with a large midline cyst posteriorly. 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 /godwin Jareth Ortega MD IMG CT ORDERABLES Final Res ult documented in this encounter Visit Diagnoses Not on filedocumented in this encounter
--- OUTSIDE RECORDS SUMMARY | 2024-03-28 11:14 | XMS_ITS | Encounter Summary ---
Author Organization [facility] Address [facility] [place] [address] Care Team Providers Care Decontamination Technician Name Role Phone Wallace Negron ADELFO Primary Care Provider [phone]- [phone] Encounter Details Date Type Department Care Team (Latest Contact Info) Description 08/24/2023 Travel Social History Tobacco Use Types Packs/Day Years Used Date Smoking Tobacco: Never Smokeless Tobacco: Never Alcohol Use Standard Drinks/Week Comments Not Currently 0 (1 standard drink = 0.6 oz pur e alcohol) Overall Financial Resource Strain (CARDIA) Answe r Date Recorded How hard is it for you to pa y for the very basics like food, housing, medical care, and heating? Not hard at all 04/20/2022 Hunger Vital Sign Answer Date Recorded Within the past 12 months, y ou worried that your food would run out before you got the money to buy more. Never true 04/20/20 22 Within the past 12 months, t he food you bought just didn't last and you didn't have money to get more. Never true 04/20/2022 PRAPARE - Transportation Answer Date Re corded In the past 12 months, has l ack of transportation kept you from medical appointments or from getting medications? No 04/08 In the past 12 months, has l ack of transportation kept you from meetings, work, or from getting things needed for daily living? No 04/20/2022 Housing Stability Vital Sign Answer Ranjit e Recorded In the last 12 months, was t here a time when you were not able to pay the mortgage or rent on time? No 04/20/2022 In the last 12 months, how many places have you lived? 1 04/20/2022 In the last 12 months, was t here a time when you did not have a steady place to sleep or slept in a long term (including now)? No 04/20/2022 Sex and Gender Information Value Date Recorded Sex Assigned at Not on file Gender Identity Not on file Sexual Orientation Not on file documented as of this encounter Plan of Treatment Not on file documented as of this encounter Visit Diagnoses Not on filedocumented in this encounter Care Teams Decontamination Technician Relationship Specialty Start Date End Date Wallace Negron APRN [address] [place] [address] [address] [place] [address] PCP - General Family Medicine 08/26/21 documented as of this encounter
--- OUTSIDE RECORDS SUMMARY | 2024-03-28 11:14 | XMS_ITS | Encounter Summary ---
Author Organization [facility] Address [facility] [place] [address] Care Team Providers Care Switch Crew Supervisor Name Role Phone Wallace Negron ADELFO Primary Care Provider [phone]- [phone] Reason for Visit * Reason Onset Date Comments Appointment 06/17/[address] C hest/Abd/Pelvis and follow up with Dr. [place] Encounter Details Date Type Department Care Team (Late st Contact Info) Description 06/17/2023 Telephone Administration [facility] [place] [address] Jason Sommers, RN Appointment (CT Neck and CT Chest/Abd/Pelvis and follow up with Dr. [place]) Social History Tobacco Use Types Packs/Day Years [...] place to sleep or slept in a retirement (including now)? No 04/20/2022 Sex and Gender Information Value Date Recorded Sex Assigned at Not on file Gender Identity Not on file Sexual Orientation Not on file documented as of this encounter Miscellaneous Notes * Telephone Encounter - Jason Sommers RN - 06/17/2023 3:06 PM EST Called pt regarding CT Neck and CT Chest/Abd/Pelvis and follow up with Dr. [place], left message for pt to call providers [employer] at [phone] to schedule appointments. documented in this encounter Plan of Treatment Not on file documented as of this encounter Visit Diagnoses Not on filedocumented in this encounter Care Teams Switch Crew Supervisor Relationship Specialty Start Date End Date Wallace Negron APRN [address] [place] [address] PCP - General Family Medicine 08/26/21 documented as of this encounter
--- OUTSIDE RECORDS SUMMARY | 2024-03-28 11:14 | XMS_ITS | Encounter Summary ---
Author Organization [facility] Address [facility] [place] [address] Care Team Providers Care Glacing Machine Tender Name Role Phone Wallace Negron APRN Primary Care Provider [phone]- [phone] Encounter Details Date Type Department Care Team (Late st Contact Info) Description 12/09/2021 Orders Only Hematology [place] [address] Sebastian Raymundo MD [facility] [place] [address] Social History Tobacco Use Types Packs/Day Years [...] on filedocumented in this encounter Care Teams Glacing Machine Tender Relationship Specialty Start Date End Date Wallace Negron APRN [address] [place] [address] PCP - General Family Medicine 08/26/21 documented as of this encounter
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
--- OUTSIDE RECORDS SUMMARY | 2024-03-28 11:14 | XMS_ITS | Clinical Summary ---
Author Organization [facility] Address [facility] [place] [address] Care Team Providers Care Correctional Supervising Cook Name Role Phone MigdaliaMaryjuanpablo Wilder APRN Primary Care Provider +1- [phone] Allergies Active Allergy Reactions Criticality Noted Date Comments Cephalexin Itching 11/30/2008 Duloxetine Hives 10/01/2010 Nitrofurantoin Monohyd/M-Cryst Rofecoxib Sulfa (Sulfonamide Antibiotics) Topiramate Medications Medication Sig Dispensed Refills Start Date End Date Status BACLOFEN ORAL Take 25 mg by mouth as needed. Active acetaminophen-codeine (Tylenol #3) 300-30 mg Tablet Take 1 tablet by mouth Every 4 hours as needed. Active esomeprazole (NexIUM) 40 mg Capsule, Delayed Release(E.C.) Take 40 mg by mouth 2 times daily. 03/16/2021 Active FLUoxetine (PROzac) 20 mg Capsule Take 20 mg by mouth Daily. Active LORazepam (Ativan) 0.5 mg Tablet Take 0.5 mg by mouth 3 times daily as needed. 05/29/2021 Active metFORMIN (Glucophage) 500 mg Tablet Take 500 mg by mouth 2 times daily. 03/27/2021 Active promethazine (Phenergan) 25 mg Tablet TAKE 1 TABLET BY MOUTH THREE TIMES A DAY NEEDED FOR NAUSEA AND VOMITING 06/11/2021 Active Active Problems Problem Noted Date Diagnosed Date Abdominal mass 08/26/2021 Immunizations Name Administration Dates Next Due Influenza Vaccine, Whole 02/23/2005,04/07/2004 Social History Tobacco Use Types Packs/Day Years [...] place to sleep or slept in a senior care (including now)? No 04/20/2022 Sex and Gender [...] Mass Index 38.08 08/24/2023 9:59 AM EDT Plan of Treatment Health Maintenance Due Date Last Done Comments CT Colonography 1978 Colonoscopy 1978 Colorectal Cancer Screening 1978 FIT DNA 1978 FIT 1978 Sigmoidoscopy (10 year) with FIT yearly 1978 Sigmoidoscopy 1978 Lipid Screening 1996 Hepatitis B vaccine (0-59 yrs) (1) 1997 Tetanus/Diphtheria/Pertussis Vaccines (1 - Tdap) 1997 HPV test 2008 PAP Smear 2008 Breast Cancer Share Decision Needed 2018 Breast Cancer screening 2018 Covid-19 Vaccine (1 - 2023-2 5 season) 2024 Influenza (Flu) vaccine (1 o f 1 - Influenza standard series) 01/08/2024 02/23/2005, 04/07/2004 Diabetes Screening (HgbA1C o r Glucose) 10/27/2025 10/27/2022, 01/22/2022, 09/09/2021, Additional history exists HIV screen Completed 09/09/2021 Hepatitis C Screening Completed 09/09/2021 Procedures Procedure Name Priority Date/Time Associated Diagnosis Comments COMPREHENSIVE METABOLIC PANEL Routine 10/27/2022 HIV SCREEN, 4TH GENERATION ([facility]/CGP/APD/NLH) Routine 09/09/2021 12:02 PM EDT HC HEPATITIS C ANTIBODY Routine 09/09/2021 12:02 PM EDT Abdominal mass, unspecified abdominal location from Last 3 Months or Most Recently Relevant to Health Maintenance Results * Comprehensive metabolic panel (non-fasting) (10/27/2022) Glucose 94 Blood Urea Nitrogen 20 Creatinine 0.9 Sodium 140 Potassium 4.1 Calcium 9.6 Protein, Total 7.4 Albumin 3.7 Bilirubin, Total 0.2 Alkaline Phosphatase 127 Aspartate Aminotransferase 11 Alanine Aminotransferase 42 Lactate Dehydrogenase 152 Blood 10/27/2022 Historical Provider CHEMISTRY ORDERAB LES * Hepatitis C Antibody (09/09/2021 12:02 PM EDT) Pathologist [facility] Hepatitis C Antibody Negative Negative [facility] Blood 09/09/2021 12:0 2 PM EDT 09/09/2021 12:23 PM EDT Narrative Resulting Agency Comment Spec In Lab Sebastian Raymundo MD CHEMISTRY ORDERA BLES Performing Organization Address [facility] Co de Phone Number [facility] [place] [address] * HIV Screen, 4th Generation ([facility]/CGP/APD/NLH) (09/09/2021 12:02 PM EDT) HIV Ab/Ag Screen Negative Negative [facility] Comment: This 4th Generation HIV test screens for the presence of the HIV-1 p24 antigen as well as antibodies reactive against HIV-1 and HIV-2. A negative screen does not rule out an acute HIV infection. If acute HIV infection is suspected, testing should be repeated in 2 - 3 weeks or HIV nucleic acid testing performed. HIV Comment Low Risk of HIV Infection [facility] Blood Venous Draw / Unknown 09/09/2021 12:02 PM EDT 09/09/2021 12:27 PM EDT Narrative Resulting Agency Comment Spec In Lab Rosy Rodriguez MD CHEMISTRY ORDERAB LES Performing Organization Address [facility] Co de Phone Number [facility] [place] [address] from Last 3 Months or Most Recently Relevant to Health Maintenance Advance Directives * Attempt Cardiopulmonary Resuscitation - Inpatient (Latest Code Status on File) Date Activated Date Inactivated Comments 08/26/2021 12:42 PM 08/27/2021 4:38 AM Question Answer Comments Code Status decision made by: Patient Care Teams Correctional Supervising Cook Relationship Specialty Start Date End Date Wallace Negron, BOILERHOUSE MECHANIC [address] [place] [address] PCP - General Family Medicine 08/26/21
--- OUTSIDE RECORDS SUMMARY | 2024-03-28 11:14 | XMS_ITS | Encounter Summary ---
Author Organization [facility] Address [facility] [place] [address] Care Team Providers Care Screen Making Technician Name Role Phone MigdaliaWallace ADELFO Primary Care Provider +1- [phone] Reason for Referral * Diagnostic Test (Routine) - Closed Specialty Diagnoses / Procedures Referred By Contac t Referred To Contact Radiology Diagnoses Abdominal mass, unspecified abdominal location Procedures NM PET CT Skull Base to Mid-thigh Rosy Rodriguez MD [facility] DR HEMATOLOGY/[place] [address] [place] [address] Referral ID Status Reason Start Date Expiration Date V isits Requested Visits Authorized [id number] Closed Specialty Service Requested 09/09/2021 03/12/2023 1 1 Reason for Visit * Diagnostic Test (Routine) - Closed Specialty Diagnoses / Procedures Referred By Contac t Referred To Contact Radiology Diagnoses Abdominal mass, unspecified abdominal location Procedures NM PET CT Skull Base to Mid-thigh Rosy Rodriguez MD [facility] HEMATOLOGY/[place] [address] [place] [address] Referral ID Status Reason Start Date Expiration Date V isits Requested Visits Authorized [id number] Closed Specialty Service Requested 09/09/2021 03/12/2023 1 1 Encounter Details Date Type Department Care Team (Latest Contact Info) Description 09/18/2021 9:50 AM EDT - 09/18/2021 9:53 AM EDT Hospital Encounter Nuclear Medicine at [facility] [place] [address] Sebastian Raymundo MD [facility] [address] H[place]AT[place] [address] Abdominal mass, unspecified abdominal location Discharge Disposition: Home Social History Tobacco Use [...] DAY NEEDED FOR NAUSEA AND VOMITING 06/11/2021 melatonin 5 mg Tablet Take 10 mg by mouth daily. For sleep 08/24/2023 documented as of this encounter Plan of Treatment Not on file documented as of this encounter Procedures Procedure Name Priority Date/Time Associated Diagnosis Comments NM PET CT SKULL BASE TO MID-THIGH ([facility]) Routine 09/18/2021 11:18 AM EDT Abdominal mass, unspecified abdominal location documented in this encounter Results * NM PET CT Skull Base to Mid-thigh (09/18/2021 11:18 AM EDT) Anatomical Region Laterality Modality Positron Emissio n Tomography (PET) Impressions 09/18/2021 3:48 PM EDT 1. 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 2. ??Small bilateral benign-appearing FDG avid axillary lymph nodes and subcentimeter bilateral cervical FDG avid lymph nodes, favored more likely to be reactive than representing additional sites of active lymphoma. 3. ??Highly FDG avid right clavicular head lesion with subtle sclerosis, suspicious for osseous lymphoma. Thank you for letting us participate in the care of this patient. ??If you are a health care provider and have any questions regarding this report, please contact the number below. ??For patients who have questions please contact the health healthcare manager that requested your imaging first. ? 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 The noncontrast CT was used for anatomic localization and photon attenuation correction of the PET scan. No oral contrast was administered. Blood glucose level: 87 (mg/dL) FDG dose: 9.3 mCi Reference liver mean SUV: 2.1 COMPARISON: CT abdomen/pelvis with IV and oral contrast from [facility] 07/06/2021. FINDINGS: HEAD/NECK: Subcentimeter bilateral level 1 and 2 FDG avid lymph nodes. Small left lower cervical/supraclavicular FDG avid lymph node. Incidental CT visualized partial opacification of the right maxillary sinus. Incompletely imaged known ventriculoperitoneal shunt catheter. CHEST: Small bilateral FDG avid axillary lymph nodes, demonstrating fatty po on CT. Normal activity in all other soft tissue regions. ABDOMEN/PELVIS: FDG avid known ill-defined mesenteric rosemary mass with associated stranding, overall largely unchanged from the 06/08/2021 CT, difficult to measure discretely secondary to configuration, patient accounting representative measurement in AP diameter approximately 4 cm (axial CT image 132), SUV max 7.1. Highly FDG avid retroperitoneal lymph nodes, aortocaval, preaortic, and left periaortic, reference left para-aortic lymph node measuring 16 x 26 mm (axial CT image 146) with an SUV max 8.6. ??Subcentimeter in short axis highly FDG avid bilateral common iliac lymph nodes. These along with the FDG avid retroperitoneal lymph nodes are anatomically largely unchanged since May 2021. Diffuse FDG bowel activity, in a pattern consistent with metformin intake. Mild FDG activity in the right anterior abdominal wall surrounding the ventriculoperitoneal shunt catheter to its peritoneal insertion in the right lower abdomen with scattered areas of subcutaneous stranding, presumably inflammatory. SKELETON/EXTREMITIES: Highly FDG avid focus in the right clavicular head with subtle sclerosis noted on CT. No other discrete FDG avid osseous lesion identified in the remainder of the axial and visualized appendicular skeleton, noting somewhat heterogeneous diffuse marrow activity Procedure Note Bonita Love MD - 09/18/2021 EXAMINATION: [place] PET CT STANDARD SKULL BASE TO MID-THIGH CLINICAL HISTORY: Abdominal pain, acute, nonlocalized Additional history per EMR: No bleed diagnosed grade 1 follicularlymphoma, status post CT-guided biopsy of retroperitoneal lymph node on 08/26/2021 TECHNIQUE: Following IV injection of 05-uehcnj-5-deoxyglucose (FDG) astandard uptake of approximately 60 minutes, a noncontrast CT scan followed by aPET scan were acquired from the base of the skull to mid thighs. The noncontrast CTwas used for anatomic localization and photon attenuation correction of thePET scan. No oral contrast was administered. Blood glucose level: 87 (mg/dL) FDG dose: 9.3 mCi Reference liver mean SUV: 2.1 COMPARISON: CT abdomen/pelvis with IV and oral contrast from [facility] 07/06/2021. FINDINGS: HEAD/NECK: Subcentimeter bilateral level 1 and 2 FDG avid lymph nodes. Small leftlower cervical/supraclavicular FDG avid lymph node. Incidental CT visualized partial opacification of the right maxillarysinus. Incompletely imaged known ventriculoperitoneal shunt catheter. CHEST: Small bilateral FDG avid axillary lymph nodes, demonstrating fatty po onCT. Normal activity in all other soft tissue regions. ABDOMEN/PELVIS: FDG avid known ill-defined mesenteric rosemary mass with associatedstranding, overall largely unchanged from the 06/08/2021 CT, difficult to measurediscretely secondary to configuration, patient accounting representative measurement in AP diameter approximately 4 cm (axial CT image 132), SUV max 7.1. Highly FDG avid retroperitoneal lymph nodes, aortocaval, preaortic, andleft periaortic, reference left para-aortic lymph node measuring 16 x 26 mm(axial CT image 146) with an SUV max 8.6. Subcentimeter in short axis highly FDGavid bilateral common iliac lymph nodes. These along with the FDG avid retroperitoneal lymph nodes are anatomically largely unchanged sinceMay 2021. Diffuse FDG bowel activity, in a pattern consistent with metforminintake. Mild FDG activity in the right anterior abdominal wall surrounding the ventriculoperitoneal shunt catheter to its peritoneal insertion in theright lower abdomen with scattered areas of subcutaneous stranding, presumably inflammatory. SKELETON/EXTREMITIES: Highly FDG avid focus in the right clavicular head with subtle sclerosisnoted on CT. No other discrete FDG avid osseous lesion identified in theremainder of the axial and visualized appendicular skeleton, noting somewhatheterogeneous diffuse marrow activity IMPRESSION 1. 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 2. Small bilateral benign-appearing FDG avid axillary lymph nodes and subcentimeter bilateral cervical FDG avid lymph nodes, favored more likelyto be reactive than representing additional sites of active lymphoma. 3. Highly FDG avid right clavicular head lesion with subtle sclerosis, suspicious for osseous lymphoma. Thank you for letting us participate in the care of this patient. If youare a health care provider and have any questions regarding this report,please contact the number below. For patients who have questions please contactthe health healthcare manager that requested your imaging first. Sebastian Raymundo MD IMG PET ORDERABL ES documented in this encounter Visit Diagnoses Diagnosis Abdominal mass, unspecified abdominal location documented in this encounter Administered Medications Inactive Administered Medications - up to 3 most recent administrations Medication Order MAR Action Action Date Dose Rate Site fludeoxyglucose (F-18) FDG injection 0-20 mCi 0-20 mCi, Intravenous, ONCE PRN, 1 dose, Starting on Tue09/18/21 at 1012, Until Tue09/18/21 at 1007, Per Protocol, Radiology Contrast, Routine Given 09/18/2021 10:07 AM EDT 9.3 mCi documented in this encounter Care Teams Screen Making Technician Relationship Specialty Start Date End Date Wallace Negron, REGULATORY ANALYST [address] [place] [address] PCP - General Family Medicine 08/26/21 documented as of this encounter
--- OUTSIDE RECORDS SUMMARY | 2024-03-28 11:14 | XMS_ITS | Encounter Summary ---
Author Organization [facility] Address [facility] [place] [address] Care Team Providers Care Mds Nurse Name Role Phone Unknown Primary Care Provider Unavailabl e Encounter Details Date Type Department Care Team (Late st Contact Info) Description 06/08/2021 Ancillary Procedure Radiology Library at [facility] [place] [address] Wallace Negron APRN [address] [place], [place] [id number] Social History Tobacco Use Types Packs/Day Years Used Date Smoking Tobacco: Never Assessed Sex and Gender Information Value Date Recorded Sex Assigned at Not on file Gender Identity Not on file Sexual Orientation Not on file documented as of this encounter Plan of Treatment Not on file documented as of this encounter Procedures Procedure Name Priority Date/Time Associated Diagnosis Comments FILM LIBRARY STORAGE ONLY CT ABDOMEN AND PELVIS Routine 06/08/2021 12:00 AM EST documented in this encounter Results * Film Library- Storage Only CT Abdomen & Pelvis (06/08/2021 12:00 AM EST) Narrative [facility] - 06/18/2021 2:53 PM EST This exam is auto-finalizing. It's purpose is for storage only. Wallace Negron APRN IMG FILM LIBRARY O RDERABLES [place], [place] documented in this encounter Visit Diagnoses Not on filedocumented in this encounter Care Teams Mds Nurse Relationship Specialty Start Date End Date Unknown None PCP - General 08/14/20 08/25/21 documented as of this encounter
--- OUTSIDE RECORDS SUMMARY | 2024-03-28 11:14 | XMS_ITS | Encounter Summary ---
Author Organization [facility] Address [facility] [place] [address] Care Team Providers Care Tailings Dam Pumper Name Role Phone Wallace Negron ADELFO Primary Care Provider +1- [phone] Encounter Details Date Type Department Care Team (Late st Contact Info) Description 01/21/2023 Orders Only [place]ematology [place] [address] Asia Polk MD [facility] [address] [place] [address] Follicular lymphoma grade I, unspecified body region [...] place to sleep or slept in a halfway (including now)? No 04/20/2022 Sex and Gender Information Value Date Recorded Sex Assigned at Not on file Gender Identity Not on file Sexual Orientation Not on file documented as of this encounter Plan of Treatment Not on file documented as of this encounter Visit Diagnoses Diagnosis Follicular lymphoma grade I, unspecified body region documented in this encounter Care Teams Tailings Dam Pumper Relationship Specialty Start Date End Date Wallace Negron APRN [address] [place] [address] PCP - General Family Medicine 08/26/21 documented as of this encounter
--- OUTSIDE RECORDS SUMMARY | 2024-03-28 11:14 | XMS_ITS | Encounter Summary ---
Author Organization [facility] [place] [address] Care Team Providers Care Steam Generating Powerplant Mechanic Name Role Phone Wallace Negron APRN Primary Care Provider +1- [phone] Encounter Details Date Type Department Care Team (Latest Contact Info) Description 08/26/2021 11:30 AM EDT Laboratory Appointment Lab 3L [facility] [place] [address] Abdominal mass, unspecified abdominal location Social History Tobacco Use Types Packs/Day Years [...] Procedure Name Priority Date/Time Associated Diagnosis Comments HC HEMOGRAM Routine 08/26/2021 12:07 PM EDT Abdominal mass, unspecified abdominal location documented in this encounter Results * Hemogram (08/26/2021 12:07 PM EDT) White Blood Cell 8.0 4.0 - 9.5 x10(3)/[facility] Red Blood Cell 4.64 4.00 - 5.21 x10(6)/[facility] Hemoglobin 13.8 11.7 - 15.5 g/dL [facility] Hematocrit 41.1 35.7 - 45.8 % [facility] Mean Cell Volume 88.6 82.6 - 94.[address] [facility] Mean Cell Hemoglobin 29.7 27.1 - 32.[address] [facility] Mean Cell Hemoglobin Concentration 33.6 31.7 - 35.0 g/dL [facility] Platelet 272 145 - 357 x10(3)/[facility] RDW Standard Deviation 40.3 37.0 - 46.[address] [facility] RDW coefficient of variation 12.4 11.5 - 14.1 % [facility] Mean Platelet Volume 10.7 7.6 - 12.[address] [facility] NRBC% auto 0.0 % [facility] NRBC Absolute 0.000 0.000 - 0.000 x10(3)/[facility] Blood 08/26/2021 12:0 7 PM EDT 08/26/2021 12:17 PM EDT Narrative Resulting Agency Comment Spec In Lab Wallace Negron APRN HEMATOLOGY ORDERAB LES [facility] [place] [address] documented in this encounter Visit Diagnoses Diagnosis Abdominal mass, unspecified abdominal location documented in this encounter Care Teams Steam Generating Powerplant Mechanic Relationship Specialty Start Date End Date Wallace Negron APRN [address] [place] [address] PCP - General Family Medicine 08/26/21 documented as of this encounter
--- OUTSIDE RECORDS SUMMARY | 2024-03-28 11:14 | XMS_ITS | Encounter Summary ---
Author Organization [facility] Address [facility] [place] [address] Care Team Providers Care Campus Recruiting Internship Name Role Phone Wallace Negron ADELFO Primary Care Provider +1- [phone] Reason for Visit * Diagnostic Test (Routine) - Closed Specialty Diagnoses / Procedures Referred By Mari perez Referred To Contact Radiology Diagnoses Abdominal mass, unspecified abdominal location Procedures NM PET CT Skull Base to Mid-thigh Rosy Rodriguez MD [facility] DR HEMATOLOGY/ON[place] [address] [facility] [place] [address] Referral ID Status Reason Start Date Expiration Date V isits Requested Visits Authorized [id number] Closed Specialty Service Requested 09/09/2021 03/12/2023 1 1 Encounter Details Date Type Department Care Team (Latest Contact Info) Description 09/18/2021 9:54 AM EDT - 09/18/2021 11:59 PM EDT Hospital Encounter [place] [address] Sebastian Raymundo MD [facility] DR HEMATOLOGY AND ONCOLOGY [place] [address] Discharge Disposition: Home Social History Tobacco Use [...] AM EDT Abdominal mass, unspecified abdominal location POCT GLUCOSE Routine 09/18/2021 10:03 AM EDT documented in this encounter Results * POCT Glucose (09/18/2021 10:03 AM EDT) Glucose, POC 87 65 - 199 mg/dL [facility] Comment: Supplemental ranges: <140 mg/dL before meals <180 mg/dL all other times of the day Blood 09/18/2021 10:0 3 AM EDT 09/18/2021 10:03 AM EDT Sebastian Raymundo MD POINT OF CARE TE ST ORDERABLES [facility] [place] [address] documented in this encounter Visit Diagnoses Not on filedocumented in this encounter Care Teams Campus Recruiting Internship Relationship Specialty Start Date End Date Wallace Negron APRN [address] [place] [address] PCP - General Family Medicine 08/26/21 documented as of this encounter
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
--- OUTSIDE RECORDS SUMMARY | 2024-03-28 11:14 | XMS_ITS | Encounter Summary ---
Author Organization [facility] Address [facility] [place] [address] Care Team Providers Care Restaurant Management Internship Name Role Phone Wallace Negron ADELFO Primary Care Provider +1- [phone] Reason for Referral * Diagnostic Test (Routine) - Closed Specialty Diagnoses / Procedures Referred By Mari perez Referred To Contact Radiology Diagnoses Follicular lymphoma grade I, unspecified body region Procedures NM PET CT Skull Base to Mid-thigh Sebastian Raymundo MD [facility] [address] [place] [address] [place] [address] Referral ID Status Reason Start Date Expiration Date V isits Requested Visits Authorized [id number] Closed Specialty Service Requested 10/06/2021 04/07/2023 1 1 Encounter Details Date Type Department Care Team (Latest Contact Info) Description 09/29/2021 Multidisciplinary Ca re Committee Hematology [place] [address] Sebastian Raymundo MD [facility] [address] [place] [address] Follicular lymphoma grade I, unspecified body region [...] as of this encounter Progress Notes * Sebastian Schmitt MD - 09/29/2021 11:59 PM EDT Lymphoma - Tumor Board Note Date Presented: 10/06/2021 Presenting Physician: Natalya Schmitt MD Diagnosis/Tumor Site: Follicular lymphoma Grade 1. Is this Metastatic Disease: NA Synopsis of History/HPI: 41 YOF presenting with abd distension and early satiety which has been going on for the past [address] a/p by PCP showed retroperitoneal BOUCHRA. CT guided biopsy showed Follicular lymphoma Grade 1. No B symptoms. Staging PET CT showed Highly FDG avid focus in the right clavicular head with subtle sclerosis noted on CT. Imaging:PET CT from 09/18/21 Pathology/Histology: LN biopsy Stage: advanced stage lymphoma (III vs IV) Clinical Data (Exams, Labs, etc.): LDH Molecular Pathology Results:N.A Clinical Trial Availability: N/A Options Discussed: Biopsy of the clavicular head vs treatment upfront and reimage vs active surveillance with rpt PET in 3 months as she does not have any indication to treat now. Recommendations: I recommended her active surveillance with rpt PET in 3 months as she does not have any indication to treat now. Pt agreed with the plan. DISCLAIMER: The patient was discussed and the tumor board made recommendations but it is ultimatelyup to the treatment provider(s) and the patient to determine the patient???s care. documented in this encounter Plan of Treatment Not on file documented as of this encounter Results * NM PET CT Skull Base to Mid-thigh (01/22/2022 10:46 AM EDT) Anatomical Region Laterality Modality Positron Emissio n Tomography (PET) Impressions 01/22/2022 3:17 PM EDT 1. ??Overall no significant interval change of FDG avid rosemary involvement by lymphoma in the neck, abdomen, and pelvis, and of the FDG avid lesion in the right clavicular head. 2. ??One of the most FDG avid lymph nodes with interval increased intensity is at the posterior margin of the right submandibular gland and may be amenable to ultrasound-guided biopsy if clinically indicated. 3. ??Unchanged mild diffusely increased activity in the normal-sized spleen, suspicious for splenic involvement by lymphoma. I have personally reviewed the image(s) and the resident's interpretation and agree with the findings, Sergo Liang MD at 01/22/2022 3:17 PM Thank you for letting us participate in the care of this patient. ??If you are a health care provider and have any questions regarding this report, please contact the number below. ??For patients who have questions please contact the health home care nurse that requested your imaging first. ? Narrative 01/22/2022 3:17 PM EDT EXAMINATION: NM PET CT STANDARD SKULL BASE TO MID-THIGH CLINICAL HISTORY: Non-Hodgkin lymphoma, staging; Low grade follicular lymphoma with PET showing uptake in the clavicle head TECHNIQUE: Following IV injection of 36-tcenfi-0-deoxyglucose (FDG) a standard uptake of approximately 60 minutes, a noncontrast CT scan followed by a PET scan were acquired from the base of the skull to mid thighs. The noncontrast CT was used for anatomic localization and photon attenuation correction of the PET scan. Blood glucose level: 91 (mg/dL) FDG dose: 14 mCi Reference liver mean SUV is 2.0 on the current study compared to 2.3 on prior PET/CT COMPARISON: PET/CT 09/18/2021 FINDINGS: HEAD/NECK: FDG avid subcentimeter right level 1B lymph node (axial image 27), appears similar in size and increased in intensity with SUV max of 9.9. Other FDG avid subcentimeter level 1 and 2 lymph nodes are unchanged. Subcentimeter FDG avid left supraclavicular lymph node (axial image 33), unchanged. Incompletely imaged known ventriculoperitoneal shunt catheter. CHEST: Mildly decreased intensity of bilateral axillary lymph nodes, most consistent with benign inflammatory nodes. Normal activity in all the soft tissue regions. No significant pulmonary nodules. ABDOMEN/PELVIS: Ill-defined FDG avid mesenteric rosemary mass and other FDG avid mesenteric adenopathy with associated stranding is not significantly changed in size, intensity. SUV max of the mesenteric adenopathy is 7.3 on the current study compared to 7.1 on prior PET/CT. FDG avid retroperitoneal adenopathy, aortocaval, para-aortic, and left greater than right common iliac regions. Reference left periaortic adenopathy measuring 2.6 x 1.9 cm, unchanged from prior exam (axial image 154 ). Mild diffusely increased activity in the normal sized spleen is unchanged compared to prior. Ventriculoperitoneal shunt with tip in the left midabdomen. SKELETON/EXTREMITIES: Unchanged FDG avid subtly sclerotic lesion in the right clavicular head. No other discrete FDG avid osseous lesion identified. Procedure Note Sergo Liang MD - 01/22/2022 EXAMINATION: NM PET CT STANDARD SKULL BASE TO MID-THIGH CLINICAL HISTORY: Non-Hodgkin lymphoma, staging; Low grade follicularlymphoma with PET showing uptake in the clavicle head TECHNIQUE: Following IV injection of 03-xreqhl-6-deoxyglucose (FDG) astandard uptake of approximately 60 minutes, a noncontrast CT scan followed by aPET scan were acquired from the base of the skull to mid thighs. The noncontrast CTwas used for anatomic localization and photon attenuation correction of thePET scan. Blood glucose level: 91 (mg/dL) FDG dose: 14 mCi Reference liver mean SUV is 2.0 on the current study compared to 2.3 onprior PET/CT COMPARISON: PET/CT 09/18/2021 FINDINGS: HEAD/NECK: FDG avid subcentimeter right level 1B lymph node (axial image 27),appears similar in size and increased in intensity with SUV max of 9.9. Other FDG avid subcentimeter level 1 and 2 lymph nodes are unchanged. Subcentimeter FDG avid left supraclavicular lymph node (axial image 33), unchanged. Incompletely imaged known ventriculoperitoneal shunt catheter. CHEST: Mildly decreased intensity of bilateral axillary lymph nodes, mostconsistent with benign inflammatory nodes. Normal activity in all the soft tissueregions. No significant pulmonary nodules. ABDOMEN/PELVIS: Ill-defined FDG avid mesenteric rosemary mass and other FDG avid mesenteric adenopathy with associated stranding is not significantly changed insize, intensity. SUV max of the mesenteric adenopathy is 7.3 on the currentstudy compared to 7.1 on prior PET/CT. FDG avid retroperitoneal adenopathy, aortocaval, para-aortic, and leftgreater than right common iliac regions. Reference left periaortic adenopathymeasuring 2.6 x 1.9 cm, unchanged from prior exam (axial image 154 ). Mild diffusely increased activity in the normal sized spleen isunchanged compared to prior. Ventriculoperitoneal shunt with tip in the left midabdomen. SKELETON/EXTREMITIES: Unchanged FDG avid subtly sclerotic lesion in the right clavicular head.No other discrete FDG avid osseous lesion identified. IMPRESSION 1. Overall no significant interval change of FDG avid rosemary involvementby lymphoma in the neck, abdomen, and pelvis, and of the FDG avid lesion inthe right clavicular head. 2. One of the most FDG avid lymph nodes with interval increased intensityis at the posterior margin of the right submandibular gland and may be amenableto ultrasound-guided biopsy if clinically indicated. 3. Unchanged mild diffusely increased activity in the normal-sizedspleen, suspicious for splenic involvement by lymphoma. I have personally reviewed the image(s) and the resident's interpretationand agree with the findings, Sergo Liang MD at 01/22/2022 3:17 PM Thank you for letting us participate in the care of this patient. If youare a health care provider and have any questions regarding this report,please contact the number below. For patients who have questions please contactthe health home care nurse that requested your imaging first. Sebastian Raymundo MD IMG PET ORDERABL ES documented in this encounter Visit Diagnoses Diagnosis Follicular lymphoma grade I, unspecified body region Follicular lymphoma grade I, unspecified body region documented in this encounter Care Teams Restaurant Management Internship Relationship Specialty Start Date End Date Wallace Negron, STORAGE WHARFAGE CLERK [address] [place] [address] PCP - General Family Medicine 08/26/21 documented as of this encounter
--- OUTSIDE RECORDS SUMMARY | 2024-03-28 11:14 | XMS_ITS | Encounter Summary ---
Author Organization [facility] Address [facility] [place] [address] Care Team Providers Care Review Scheduling Coordinator Name Role Phone Wallace Negron APRN Primary Care Provider +1- [phone] Encounter Details Date Type Department Care Team (Late st Contact Info) Description 07/19/2023 Ancillary Procedure Radiology Library at [facility] [place] [address] Wallace Negron APRN [address] [place] [address] Social History Tobacco Use Types Packs/Day Years [...] place to sleep or slept in a chcf (including now)? No 04/20/2022 Sex and Gender Information Value Date Recorded Sex Assigned at Not on file Gender Identity Not on file Sexual Orientation Not on file documented as of this encounter Plan of Treatment Not on file documented as of this encounter Procedures Procedure Name Priority Date/Time Associated Diagnosis Comments FILM LIBRARY STORAGE ONLY CT CHEST ABDOMEN PELVIS Routine 07/19/2023 12:00 AM EDT documented in this encounter Results * Film Library- Storage Only CT Chest Abdomen Pelvis (07/19/2023 12:00 AM EDT) Narrative [facility] - 07/20/2023 9:37 AM EDT This exam is auto-finalizing. It's purpose is for storage only. Wallace Negron APRN IMG FILM LIBRARY O RDERABLES Performing Organization Address City/State/[facility] Co de Phone Number [place], [place] documented in this encounter Visit Diagnoses Not on filedocumented in this encounter Care Teams Review Scheduling Coordinator Relationship Specialty Start Date End Date Wallace Negron APRN [address] [place] [address] PCP - General Family Medicine 08/26/21 documented as of this encounter
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
--- OUTSIDE RECORDS SUMMARY | 2024-03-28 11:14 | XMS_ITS | Encounter Summary ---
Author Organization [facility] Address [facility] [place] [address] Care Team Providers Care Supervisor Fish Processing Name Role Phone Wallace Negron ADELFO Primary Care Provider +1- [phone] Encounter Details Date Type Department Care Team (Late st Contact Info) Description 02/10/2023 Telephone Hematology and Oncology at [facility] [place] [id number] Lucretia Grey Social History Tobacco Use Types Packs/Day Years [...] place to sleep or slept in a skilled nursing (including now)? No 04/20/2022 Sex and Gender Information Value Date Recorded Sex Assigned at Not on file Gender Identity Not on file Sexual Orientation Not on file documented as of this encounter Miscellaneous Notes * Telephone Encounter - Lucretia Chávez - 02/10/2023 2:04 PM EDT Procedure Prior Authorization Procedure/Cpt: 94837, 13786 Ct c/a/p, [address]56 Ct neck Rationale: C82.00 Health Plan: [employer] Medicare Authorizing Vendor: [employer] Order/Case ID: Authorization #: [id number] (Abdomen and Pelvis CT) [id number] (Chest CT) [id number] (Neck CT) Effective Date: 02/10/2023 - 05/11/2023 Status: Approved Rendering Facility: [facility] documented in this encounter Plan of Treatment Not on file documented as of this encounter Visit Diagnoses Not on filedocumented in this encounter Care Teams Supervisor Fish Processing Relationship Specialty Start Date End Date Wallace Negron APRN [address] [place] [address] PCP - General Family Medicine 08/26/21 documented as of this encounter
--- OUTSIDE RECORDS SUMMARY | 2024-03-28 11:14 | XMS_ITS | Encounter Summary ---
[facility] Organization [facility] Address [facility] [place] [address] Care Team Providers Care Medical Care Administrator Name Role Phone Unknown Primary Care Provider Unavailabl e Encounter Details Date Type Department Care Team (Late st Contact Info) Description 06/19/2021 [place] [id number] Gianluca Rose MD [facility] [place] [address] Social History Tobacco Use Types Packs/Day Years Used Date Smoking Tobacco: Never Assessed Sex and Gender Information Value Date Recorded Sex Assigned at Not on file Gender Identity Not on file Sexual Orientation Not on file documented as of this encounter H&P Notes * Gianluca Rose MD - 06/19/2021 10:39 AM EST Images from the original note were not included. INTERVENTIONAL RADIOLOGY FOCUSED H&P and PRE-PROCEDURE NOTE: PCP: Unknown Referring Provider: Wallace Negron Planned Procedure: Planned procedure: Biopsy of retroperitoneal lymphnode vs mesenteric mass Procedure Indication: Tissue diagnosis Procedure request received through Interventional Radiology eDH order queue. Presenting Diagnosis/ Complaint: Radha Moya is a 41 y.o. female with discovery of mesenteric mass and RP LAD with request for biopsy for tissue diagnosis. Initial request for mesenteric mass biopsy however after speaking with the ordering provider, he is OK with biopsy of a lymph node as well. Past Medical/Surgical History: There is no problem list on file for this patient. No past medical history on file. No past surgical history on file. Medications: No current outpatient medications on file prior to visit. No current facility-administered medications on file prior to visit. Allergies: Nitrofurantoin monohyd/m-cryst, Rofecoxib, Sulfa (sulfonamide antibiotics), and Topiramate Social History and Habits: Social History Socioeconomic History ??? Marital status: Spouse name: Not on file ??? Number of children: Not on file ??? Years of education: Not on file ??? Highest education level: Not on file Occupational History ??? Not on file Tobacco Use ??? Smoking status: Not on file ??? Smokeless tobacco: Not on file Substance and Sexual Activity ??? Alcohol use: Not on file ??? Drug use: Not on file ??? Sexual activity: Not on file Other Topics Concern ??? Not on file Social History Narrative ??? Not on file Social Determinants of Health Financial Resource Strain: Not on file Food Insecurity: Not on file Transportation Needs: Not on file Physical Activity: Not on file Housing Stability: Not on file Significant Family History: No family history on file. Pertinent ROS: as per HPI Labs: Imaging: Physical Exam: Pending (to be performed in angio the day of procedure) ASA: Pending (to be assessed in angio the day of procedure) Mallampati Class: Pending (to be assessed in angio the day of procedure) Assessment: 41 y.o. female with mesenteric mass and RP LAD presenting for biopsy for tissue diagnosis. Left tyler-arotic LN appears amenable to CT guided biopsy. Plan: Planned procedure: Biopsy of retroperitoneal lymphnode vs mesenteric mass Labs to be performed day of procedure: PLT; Coags Sedation: Moderate (Conscious sedation) Prophylactic antibiotic : None Contrast: No contrast Additional medications for procedure: Lidocaine Planned access site: Likely left tyler-arotic node Position: Prone Consent: Pending Medications to discontinue (and days held): None Case Urgency:: G- Other (non E or F elective cases) 06/19/2021 documented in this encounter Plan of Treatment Not on file documented as of this encounter Visit Diagnoses Not on filedocumented in this encounter Care Teams Medical Care Administrator Relationship Specialty Start Date End Date Unknown None PCP - General 08/14/20 08/25/21 documented as of this encounter
--- OUTSIDE RECORDS SUMMARY | 2024-03-28 11:14 | XMS_ITS | Encounter Summary ---
Author Organization [facility] Address [facility] [place] [address] Care Team Providers Care Production Sanitizer Name Role Phone MigdaliaWallace ADELFO Primary Care Provider [phone]- [phone] Encounter Details Date Type Department Care Team (Latest Contact Info) Description 09/09/2021 11:53 AM EDT - 09/09/2021 11:59 PM EDT Hospital Encounter [place] [id number] Abdominal mass, unspecified abdominal location Discharge Disposition: [...] Name Priority Date/Time Associated Diagnosis Comments HC IMMUNOGLOBULIN FREE LIGHT CHAINS, SERUM Routine 09/09/2021 12:02 PM EDT Abdominal mass, unspecified abdominal location HC IGG, SERUM Routine 09/09/2021 12:02 PM EDT Abdominal mass, unspecified abdominal location HEMOGRAM Routine 09/09/2021 12:02 PM EDT Abdominal mass, unspecified abdominal location DIFFERENTIAL, AUTOMATED Routine 09/10/19 12:02 PM EDT Abdominal mass, unspecified abdominal location HC HEPATITIS C ANTIBODY Routine 09/10/19 12:02 PM EDT Abdominal mass, unspecified abdominal location HC HEPATITIS B CORE AB Routine 12:02 PM EDT Abdominal mass, unspecified abdominal location HIV SCREEN, 4TH GENERATION ([facility]/CGP/APD/NLH) Routine 09/09/2021 12:02 PM EDT HC HEPATITIS B SURFACE AG Routine 09/09/2021 12:02 PM EDT Abdominal mass, unspecified abdominal location HC CBC,PLT & AUTO DIFF Routine 2 12:02 PM EDT Abdominal mass, unspecified abdominal location HC URIC ACID, SERUM Routine 09/09/2021 1 2:02 PM EDT Abdominal mass, unspecified abdominal location HC SERUM PROT. ELECTROPHORESIS Routine 09/09/2021 12:02 PM EDT Abdominal mass, unspecified abdominal location HC LACTIC DEHYDROGENASE Routine 09/10/19 12:02 PM EDT Abdominal mass, unspecified abdominal location HC BETA 2 MICROGLOBULIN Routine 09/10/19 22 12:02 PM EDT Abdominal mass, unspecified abdominal location COMPREHENSIVE METABOLIC PANEL Routine 09/09/2021 12:02 PM EDT Abdominal mass, unspecified abdominal location documented in this encounter Results * HIV Screen, 4th Generation ([facility]/CGP/APD/NLH) (09/09/2021 12:02 PM EDT) [facility] HIV Ab/Ag Screen Negative Negative [facility] Comment: This 4th Generation [...] HIV Comment Low Risk of HIV Infection [facility] Blood Venous Draw / Unknown 09/09/2021 12:02 PM EDT 09/09/2021 12:27 PM EDT Narrative Resulting Agency Comment Spec In Lab Rosy Rodriguez MD CHEMISTRY ORDERAB LES [facility] [place] [address] * Differential, Automated (09/09/2021 12:02 PM EDT) [facility] Neutrophil % 67.0 % [facility] Neutrophil Absolute 5.88 1.70 - 6.10 x10(3)/[facility] Lymph % 21.2 % [facility] Lymphocytes Abs 1.9 0.9 - 3.2 x10(3)/[facility] Monocyte % 8.3 % [facility] Monocyte Abs 0.7 0.3 - 0.9 x10(3)/[facility] Eos % 2.6 % [facility] Eosinophils Abs 0.2 0.0 - 0.4 x10(3)/[facility] Basophil % 0.6 % [facility] Baso Absolute 0.0 0.0 - 0.1 x10(3)/[facility] Immature Gran % 0.30 % [facility] Comment: Immature granulocytes(IG's)percentage and absolute count will include metamyelocytes, myelocytes, and promyelocytes. Blood smears from CBCs yielding IG's will be scanned manually for concordance. If this scan disagrees with the automated IG or if promyelocytes are noted, a manual differential will be performed. Immature Gran Absolute 0.03 0.00 - 0.04 x10(3)/[facility] Blood 09/09/2021 12:0 2 PM EDT 09/09/2021 12:23 PM EDT Narrative Resulting Agency Comment Spec In Lab Rosy Rodriguez MD HEMATOLOGY ORDERA BLES [facility] [place] [address] * Hemogram (09/09/2021 12:02 PM EDT) White Blood Cell 8.8 4.0 - 9.5 x10(3)/[facility] Red Blood Cell 4.69 4.00 - 5.21 x10(6)/[facility] Hemoglobin 14.1 11.7 - 15.5 g/dL [facility] Hematocrit 42.8 35.7 - 45.8 % [facility] Mean Cell Volume 91.3 82.6 - 94.4 fL [facility] Mean Cell Hemoglobin 30.1 27.1 - 32.0 pg [facility] Mean Cell Hemoglobin Concentration 32.9 31.7 - 35.0 g/dL [facility] Platelet 307 145 - 357 x10(3)/[facility] RDW Standard Deviation 40.8 37.0 - 46.0 fL [facility] RDW coefficient of variation 12.3 11.5 - 14.1 % [facility] Mean Platelet Volume 9.9 7.6 - 12.9 fL [facility] NRBC% auto 0.0 % [facility] NRBC Absolute 0.000 0.000 - 0.000 x10(3)/mcL [facility] Blood 09/09/2021 12:0 2 PM EDT 09/09/2021 12:23 PM EDT Narrative Resulting Agency Comment Spec In Lab Rosy Rodriguez MD HEMATOLOGY ORDERA BLES Performing Organization Address [facility]/ZIP Co de Phone Number [facility] [place] [address] * Uric acid (09/09/2021 12:02 PM EDT) Pathologist [facility] Uric Acid 4.2 2.5 - 6.5 mg/dL [facility] Blood 09/09/2021 12:0 2 PM EDT 09/09/2021 12:23 PM EDT Narrative Resulting Agency Comment Spec In Lab Sebastian Raymundo MD CHEMISTRY ORDERA BLES Performing Organization Address [facility] Co de Phone Number [facility] [place] [address] * Protein Electrophoresis, serum (09/09/2021 12:02 PM EDT) Total Prot Electrophoresis 7.0 6.1 - 8.0 g/dL [facility] Albumin Electrophoresis 4.60 3.60 - 6.00 g/dL [facility] Alpha 1 Globulin 0.16 0.10 - 0.30 g/dL [facility] Alpha 2 Globulin 0.74 0.40 - 0.90 g/dL [facility] Beta Globulin 0.81 0.50 - 1.00 g/dL [facility] Gamma Globulin 0.70 0.50 - 1.30 g/dL [facility] M1 Band None Detected None Detected [facility] Blood 09/09/2021 12:0 2 PM EDT 09/09/2021 12:23 PM EDT Narrative Resulting Agency Comment Spec In Lab Sebastian Raymundo MD CHEMISTRY ORDERA BLES Performing Organization Address City/[facility]/ZIP Co de Phone Number [facility] [place] [address] * Free Light Chains, Serum (09/09/2021 12:02 PM EDT) Soso Free Light Chain 1.50 0.72 - 2.75 mg/dL [facility] Lambda Free Light Chain 1.43 0.57 - 2.15 mg/dL [facility] Soso/Lambda FLC Ratio 1.0490 0.4000 - 2.5800 [facility] Blood 09/09/2021 12:0 2 PM EDT 09/09/2021 12:23 PM EDT Narrative Resulting Agency Comment Spec In Lab Sebastian Raymundo MD CHEMISTRY ORDERA BLES Performing Organization Address [facility] Co de Phone Number [facility] [place] [address] * Immunoglobulins, Quantitative (09/09/2021 12:02 PM EDT) Immunoglobulin G 837 700 - 1,600 mg/dL [facility] Comment: Pediatric Reference Intervals obtained from the Caliper Reference Interval project. http://www.sickkids.ca/caliperproject/index.html IgA 100 70 - 400 mg/dL [facility] IgM 191 40 - 230 mg/dL [facility] Blood 09/09/2021 12:0 2 PM EDT 09/09/2021 12:23 PM EDT Narrative Resulting Agency Comment Spec In Lab Sebastian Raymundo MD CHEMISTRY ORDERA BLES [facility] [place] [address] * Beta 2 Microglobulin, serum (09/09/2021 12:02 PM EDT) Beta 2 Microglobulin 1.8 0.8 - 2.2 mg/L [facility] Blood 09/09/2021 12:0 2 PM EDT 09/09/2021 12:23 PM EDT Narrative Resulting Agency Comment Spec In Lab Sebastian Raymundo MD CHEMISTRY ORDERA BLES Performing Organization Address City/[facility]/ZIP Co de Phone Number [facility] [place] [address] * Hepatitis C Antibody (09/09/2021 12:02 PM EDT) Hepatitis C Antibody Negative Negative [facility] Blood 09/09/2021 12:0 2 PM EDT 09/09/2021 12:23 PM EDT Narrative Resulting Agency Comment Spec In Lab Sebastian Raymundo MD CHEMISTRY ORDERA BLES Performing Organization Address City/[facility]/ZIP Co de Phone Number [facility] [place] [address] * Hepatitis B Core Antibody, Total (09/09/2021 12:02 PM EDT) Hepatitis B Core Antibody Negative Negative [facility] Blood 09/09/2021 12:0 2 PM EDT 09/09/2021 12:23 PM EDT Narrative Resulting Agency Comment Spec In Lab Sebastian Raymundo MD CHEMISTRY ORDERA BLES Performing Organization Address City/[facility]/ZIP Co de Phone Number [facility] [place] [address] * Hepatitis B Surface Antigen (09/09/2021 12:02 PM EDT) Hepatitis B Surface Antigen Negative Negative [facility] Blood 09/09/2021 12:0 2 PM EDT 09/09/2021 12:23 PM EDT Narrative Resulting Agency Comment Spec In Lab Sebastian Raymundo MD CHEMISTRY ORDERA BLES Performing Organization Address City/[facility]/ZIP Co de Phone Number [facility] [place] [address] * Lactate Dehydrogenase (09/09/2021 12:02 PM EDT) Lactate Dehydrogenase 174 110 - 220 unit/L [facility] Blood 09/09/2021 12:0 2 PM EDT 09/09/2021 12:23 PM EDT Narrative Resulting Agency Comment Spec In Lab Sebastian Raymundo MD CHEMISTRY ORDERA BLES Performing Organization Address [facility] Co de Phone Number [facility] [place] [address] * (ABNORMAL) Comprehensive metabolic panel (non-fasting) (09/09/2021 12:02 PM EDT) Glucose 98 65 - 199 mg/dL [facility] Comment:Diabetes: >=200 mg/d L plus symptoms Blood Urea Nitrogen 15 8 - 18 mg/dL [facility] Creatinine 0.91 0.70 - 1.20 mg/dL [facility] Sodium 138 135 - 145 mmol/L [facility] Potassium 4.1 3.5 - 5.0 mmol/L [facility] Comment: Please note: ??Patients with WBC >100,000 may have falsely elevated Potassium levels. ??For accurate Potassium quantification in these patients send serum separator tube (gold top) for subsequent determinations. ??Contact the Clinical Chemistry Laboratory if there are any questions. Chloride 103 98 - 107 mmol/L [facility] Carbon Dioxide 25 22 - 31 mmol/L [facility] Anion Gap 10 5 - 15 mmol/L [facility] Calcium 9.5 8.5 - 10.5 mg/dL [facility] Protein, Total 7.5 6.1 - 8.0 g/dL [facility] Albumin 4.5 3.2 - 5.2 g/dL [facility] Aspartate Aminotransferase 18 0 - 30 unit/L [facility] Alanine Aminotransferase 40(H) 0 - 30 unit/L [facility] Alkaline Phosphatase 132(H) 35 - 105 unit/L [facility] Bilirubin, Total 0.3 0.2 - 1.3 mg/dL [facility] Est Glomerular Filtration Rate 77 >=60 mL/min/1. 73 m?? [facility] Comment: This patient? s estimated glomerular [...] Lab Sebastian Raymundo MD CHEMISTRY ORDERA BLES [facility] [place] [address] documented in this encounter Visit Diagnoses Diagnosis Abdominal mass, unspecified abdominal location documented in this encounter Care Teams Production Sanitizer Relationship Specialty Start Date End Date Wallace Negron APRN [address] [place] [address] PCP - General Family Medicine 08/26/21 documented as of this encounter
--- OUTSIDE RECORDS SUMMARY | 2024-03-28 11:14 | XMS_ITS | Encounter Summary ---
Author Organization [facility] Address [address] [place] [address] Care Team Providers Care Briquetter Operator Name Role Phone Nimisha Padilla MD Primary Care Provider [phone] Reason for Visit * Reason Comments Headache x 1 week -increasing since Tuesday. + shunt. States her gait now feels off balance. To see Neuro due to elevated cerebral pressures per transferring facility. 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 Encounter Details Date Type Department Care Team (Late st Contact Info) Description 11/30/2008 20:20 EDT - 12/02/2008 12:13 EDT Hospital Encounter [facility] Neurosurgery Unit [address] [place] [address] John Garcia MD Penar, Paul L, MD [address] [facility], [facility] [address] [place] [phone] Discharge Disposition: Home or Self Care Social [...] Sign Reading Time Taken Comments Blood Pressure 104/69 12/02/2008 1106 EDT Pulse 103 12/02/2008 1106 EDT Temperature 37 ??C (98.6 ??F) 12/02/2008 1106 EDT Respiratory Rate 18 12/02/2008 1106 EDT Oxygen Saturation 91% 12/02/2008 1106 EDT Inhaled Oxygen Concentration - - Weight 78.9 kg (174 lb) 11/30/2008 1632 EDT Height 157.5 cm (5' 2) 11/30/2008 1632 EDT Body Mass Index 31.83 11/30/2008 1632 EDT documented in this encounter Discharge Summaries * Lily Harry MD - 12/02/2008 0737 EDT Discharge Summary Chief Complaint/Reason for Admission: Headaches/ Shunt malfunction Principal/Final Diagnosis: Shunt malfunction Principal Procedure: Distal revision, placement of STRATA II valve set at 1.5, Dr. Jama Date: 12/01/08 Secondary Procedures: none Prognosis: Good Condition at Discharge: Improved Relevant Studies at Discharge: none Assessment at Discharge: Vital signs: Patient Vitals in the past 12 hrs: BP Temp Temp src Pulse Resp SpO2 Height Wt - Scale 12/02/08 0715 110/71 mmHg 37.2 ??C (99 ??F) Tympanic 108 18 93 % - - 12/02/08 0327 119/60 mmHg 37.3 ??C (99.1 ??F) Tympanic 115 18 93 % - - 12/01/08 2309 104/63 mmHg 36.8 ??C (98.2 ??F) Tympanic 98 18 96 % - - Hospital Course: Mrs. 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 She had a VPS placed shortly after which was lengthened in the first 5 years of life but has not since been revised. [facility] baseline headaches which had become more frequent and more severe with no response to standard medication and some mild nausea. She was admitted 11/30/08 for suspected Shunt malfunction. 12/01/08 She underwent a distal revision and placement of STRATA II valve which was set at 1.5. She tolerated the procedure well, and suffered no complications. She was discharged home POD#1 in good conditions with instructions to follow up with Dr. Jama in 3-4 weeks. Relevant Studies at Discharge: none Discharge Summary Completed: 12/02/08 Kamryn 0190 Cosigned by Ben Jama MD at 12/04/2008 14:55 EDT documented in this encounter Discharge Instructions * Discharge Instructions* Lily Harry MD - 12/02/2008 7:54 EDT Images from the original note were not included. POST- OPERATIVE INSTRUCTIONS FOR PATIENTS AFTER BRAIN [...] by talking to you. Follow-up visit with Dr. Jama's office should be made for three to four weeks post-surgery. Please call our nurse, Oanh Spann, with any questions regarding your recovery during hours 8am to 4pm, Tuesday through Tuesday. After hours, there is always a doctor arson and bomb investigator for emergencies or go to your local hospital emergency department. Call our office at or for an appointment or if any problems such as signs of infection or above symptoms. [facility] Patient Instructions Ventriculoperitoneal Shunt Surgery: What to Expect at Home Your Recovery Ventriculoperitoneal shunt surgery (PROCEDURE ANALYST shunt surgery) helps control pressure in your brain by draining extra fluid out of your brain and into your belly. During PROCEDURE ANALYST shunt surgery, the doctor placed two small tubes (catheters) and a valve under your skin. After surgery, your neck or belly may feel tender. You will probably feel tired, but you should nothave much pain. For a few weeks after surgery, you may have headaches. It is common to feel some fluid moving around in your scalp. This will go away as your scalp heals.The area around the stitches or latrell may feel tender for a week or more. If needed, the doctor will remove your stitches or latrell 5 to 10 days after surgery. The shunt will not limit your activities. There will be a lump on your head where the valve is. This lump may not show when your hair grows back. You may or may not feel the shunt underneath your skin. In some cases, your doctor may need to adjust your shunt valve so the right amount of fluid is draining. Watch for signs of infection or signs that the shunt is not working right. If the shunt gets infected or stops working well, it may need to be removed or replaced. Without problems, your shunt may be left in place for years. This care sheet gives you a general idea about how long it will take for you to recover. But each person recovers at a different pace. Follow the steps below to get better as quickly as possible. How can you care for yourself at home? Activity ?? Rest when you feel tired. Getting enough sleep will help you recover. Do not touch the valve on your head. It is okay for you to lie on the side of your head with the shunt. For 6 weeks, do not do any activity that may cause you to hit your head. You will probably be able to return to work in less than 1 week. After your doctor says it is okay to remove the bandages, you can shower. Afterward, be sure to patthe incision areas dry. Do not swim or bathe until your stitches or latrell are removed. Check with your doctor about when it is safe to travel by plane. Diet ?? The tube in your belly will not affect how you digest food. You can eat as usual. If your stomach is upset, try bland, low-fat foods like plain rice, broiled chicken, toast, and yogurt. You may notice that your bowel movements are not regular right after your surgery. This is common. Try to avoid constipation and straining with bowel movements. You may want to take a fiber supplement every day. If you have not had a bowel movement after a couple of days, ask your doctor about taking a mild laxative. Medicines ?? Take pain medicines exactly as directed. If the doctor gave you a prescription medicine for pain, take it as prescribed. If you are not taking a prescription pain medicine, ask your doctor if you can take an vfnc-jdq-gbrxupi medicine. Do not take two or more pain medicines at the same time unless the doctor told you to. Many pain medicines have acetaminophen, which is Tylenol. Too much acetaminophen (Tylenol) can be harmful. If you think your pain medicine is making you sick to your stomach: Take your medicine after meals (unless your doctor has told you not to). Ask your doctor for a different pain medicine. If your doctor prescribed antibiotics, take them as directed. Do not stop taking them just because you feel better. You need to take the full course of antibiotics. Incision care ?? If you have strips of tape on the incisions the doctor made, leave the tape on for a week or until it falls off. Wash your incision areas daily with warm, soapy water, and gently pat them dry. Other cleaning products, such as hydrogen peroxide, can make the wounds heal more slowly. You may cover the areas with a gauze bandage if they weep or rub against clothing. Change the bandages every day. Keep the areas clean and dry. Follow-up care is a lu part of your treatment and safety. Be sure to make and go to all appointments, and call your doctor if you are having problems. It???s also a good idea to know your test results and keep a list of the medicines you take. When should you call for help? Call 911 anytime you think you may need emergency care. For example, call if: ?? You pass out (lose consciousness). You have sudden chest pain and shortness of breath, or you cough up blood. You have severe trouble breathing. It is hard to think, move, speak, or see. Your body is jerking or shaking. Call your doctor now or seek immediate medical care if: ?? You feel new bumps on your head 3 to 5 days after surgery or the bumps get bigger after 2 weeks. There is redness or swelling along the shunt. You have trouble thinking clearly. You have a fever with a stiff neck or a severe headache. Your incision comes open. You have signs of infection, such as: Increased pain, swelling, warmth, or redness. Red streaks leading from the stent. Pus draining from the stent. Swollen lymph nodes in your neck, armpits, or groin. A fever. You have any sudden vision changes. You have new or worse headaches. You are sleeping more than you are awake. You fall and hit your head. You have pain that does not get better after you take pain medicine. You have a fever over 100??F. You throw up. Watch closely for changes in your health, and be sure to contact your doctor if you have any problems. Where can you learn more? Go to www.[employer].net/fahc Enter V872 in the search box to learn more about Ventriculoperitoneal Shunt Surgery: What to Expect at Home. ?? 2005 - 2008 [employer]. Care instructions adapted under license by [facility], [facility] . This care instruction is for use with your licensed healthcare professional. If you have questions about a medical condition or this instruction, always ask your healthcare professional. [employer] disclaims any warranty or liability for your use of this information. documented in this encounter Medications at Time of Discharge albuterol (PROVENTIL HFA, VENTOLIN HFA) 90 mcg/Actuation inhaler Inhale 2 Puffs as directed 3 times daily as needed for Wheezing. 8.5gm acetaminophen (TYLENOL) 500 mg tablet Take 1,000 mg by mouth 4 times daily as needed for Pain. 1 butalbital-aceta minophen-caffein e (FIORICET, ESGIC) 50-325-40 mg per tablet Take 1 Tab by mouth daily as needed for Headaches. 1 citalopram (CELEXA) 20 mg tablet Take 20 mg by mouth 2 times daily. 1 omeprazole (PRILOSEC) 20 mg capsule Take 20 mg by mouth daily. 1 oxycodone (ROXICODONE) 5 mg immediate release tablet Take 1-3 Tabs by mouth every 4 hours as needed for Pain. discomfort 100 0 12/02/2008 9 promethazine (PHENERGAN) 12.5 mg tablet Take 12.5 mg by mouth 3 times daily as needed for Nausea. 1 ranitidine (ZANTAC) 150 mg tablet Take 300 mg by mouth at bedtime. 1 documented as of this encounter Ordered Prescriptions Prescription Sig Dispense Quantity Refills Last Filled Start Date End Date oxycodone (ROXICODONE) 5 mg immediate release tablet Take 1-3 Tabs by mouth every 4 hours as needed for Pain. discomfort 100 0 12/02/2008 9 documented in this encounter Discharge Disposition Disposition Code Departure Means Destination Home or Self Care documented in this encounter Progress Notes * Inpatient, Physician - 12/17/2008 0808 EDT * Dev Jamison - 12/02/2008 1330 EDT CM DC NOTE: 12/02/08 DC w/o CM services ordered, not met by CM. // Sarabjit Jamison RN #[id number] * Ildefonso Min CRNA - 12/02/2008 1156 EDT Pt vital signs are stable. She has no recall of Tuesday's procedure. Denies any problems related to anesthesia. No apparent anesthetic complications noted at this time. * Ben Jama MD - 12/02/2008 0632 EDT NS Progress Note S: still sore around incisions, Headaches improved, vision improved O: Blood pressure 119/60, pulse 115, temperature 37.3 ??C (99.1 ??F), temperature source Tympanic, resp. rate 18, height 1.575 m (5' 2), weight 78.926 kg (174 lb), SpO2 93%. A,A,Ox3 FS, TML EOMI No drift Strength and sensation intact Speech clear A/P:28 y.o. female POD # 1S/p revision of VPS, insertion of new distal catheter, and Strata programmable valve set to 1.5 neurostable OK to go home today tolerating PO Harry 0190 Attestation statement: I saw and examined the patient with the resident. I agree with the findings and plan of care documented in the resident's/fellow's note. Doing well - mild headache. Will be d/c today. Ben Jama MD * Chris James, WILLIAM - 12/02/2008 0324 EDT No multi-disciplinary problems found Data:pt doing well, see flow sheet for data Action:continue to monitor pt for changes. Oxy IR and morphine given for pain. Response: pt is able to ambulate to the BR to void, neuro intact. Chris James RN 12/02/2008 3:24 AM * Kristal Chakraborty MD - 12/01/2008 1721 EDT NS POC S: sore around incisions O: Blood pressure 146/71, pulse 75, temperature 35.7 ??C (96.3 ??F), resp. rate 16, height 1.575 m (5' 2), weight 78.926 kg (174 lb), SpO2 98%. A,a,ox3 FS, TML EOMI No drift Strength and sensation intact Speech clear A/P: S/p revision of VPS, insertion of new distal catheter, and Strata programmable valve set to 1.5 --Pain control --Adv diet --Monitor neuro status Mylene [id number] * Emerald Costa, WILLIAM - 12/01/2008 1440 EDT Pt arrived via bed. AOx3, denies pain at this time. Inc to head, chest and right abd CDI, MARY with sutures. Family at bedside. * Janae Melendez RN - 12/01/2008 1433 EDT Pt transferred to M6 via bed. Alert and oriented x3, states pain is much better. No resp distress noted. * Janae Melendez RN - 12/01/2008 1340 EDT Report received at 1335 from WILLIAM Hernandez and care of pt assumed. Pt alert and oriented, resting in bed visiting with family. Pt states a little pain, mostly in abdomen. * Gail Montano RN - 12/01/2008 1334 EDT Pt arrived at 1253 no distress, dressing on forehead znd 2 would on head ffrom pin sheppard. selina incision on R neck and abd D&I pt with some discomfor 4/10 requests pain meds, medicated with poor relief remedicated. 1335 report to Jignesh Melendez RN * Jos Whitt - 12/01/2008 1236 EDT NS OP Diagnosis: Shunt malfunction Procedure: Distal revision, placement of STRATA II valve set at 1.5 Surgeon: Wiley Assist: Mylene Whitt To pacu trenton 0353 * Jaya Dickens MD - 12/01/2008 0595 EDT Neurosurgery Progress Note Chief Complaint: Headache Subjective: Feeling OK, but headache is back Medications: citalopram 20 mg BID ranitidine 300 mg QHS docusate sodium 100 mg BID omeprazole 20 mg QHS omeprazole 20 mg DAILY Vital Signs: Blood pressure 106/57, pulse 80, temperature 35.8 ??C (96.4 ??F), temperature source Tympanic, resp. rate 16, height 1.575 m (5' 2), weight 78.926 kg (174 lb), SpO2 96%. Exam: A+O x 3, Fully conversant, speech clear Face symmetric, Tongue central PERLAi and EOMi Strong in the UE's and the LE's with grossly intact strength No drift Lab Results Component Value Date/Time ??? WBC [...] PM ??? CREATININE 0.90 11/30/08 11:37 PM Assessment: 28 y.o. female, hospital day # 1 Plan: For VPS revision today Formal consent from pt once shunt placement known Pt had Brainlab CT last night For surgery this AM * Christy Lockhart RN - 12/01/2008 9227 EDT No multi-disciplinary problems found Data: Pt arrived from ED with c/o 5/10 headache that has been persistent for days. Action: Tylenol and 5 mg oxycodone given. Response: Pt resting comfortably and is able to rest. Will continue to monitor and medicate when necessary. Christy Lockhart RN 12/01/2008 5:05 AM documented in this encounter H&P Notes * Kirill Boucher MD - 11/30/2008 6388 EDT History & Physical: Blue Surgery HPI: 28 y.o.female with hydrocephalus and shunt placed shortly after now presents with worsening headaches over the past several weeks. General surgery is consulted for placement of abdominal end of revised PROCEDURE ANALYST shunt. Pt states that she has baseline headaches, but that they have increased in frequency and duration. This morning the pain reached such intensity that she and her delayeda weekend getaway to seek treatment. She currently denies nausea and says that the Tylenol and oxycodone have temporarily relieved some of her BECKWITH. Pt says she has had a ventral hernia just below her sternum for the past two years. It sometimes causes her pain. She has received conflicting information from past providers as to whether the hernia is operable. She and her are trying to conceive. Past Medical History: Past Medical History Diagnosis Date ??? Hydrocephalus shunt placed 1978 ??? GERD (Gastroesophageal Reflux Disease) ??? Asthma ??? Depression ??? Ovarian Cyst ??? Ventral Hernia 2 yrs Past Surgical History: Past Surgical History Procedure Date ??? Eye surgery 1980 Medications: citalopram 20 mg BID ranitidine 300 mg QHS docusate sodium 100 mg BID omeprazole 20 mg QHS omeprazole 20 mg DAILY acetaminophen 1000 mg QID PRN albuterol 2 Puff TID PRN jlifllcecm-agxwlolbyypgb-vixgukuq 1 Tab Daily PRN promethazine 12.5 mg TID PRN magnesium sulfate in D5W 2000 mg/50 mL 2 g PRN potassium chloride 20 mEq/100 mL 20 mEq PRN oxycodone 5-15 mg Q4H PRN morphine 2-5 mg Q4H PRN bisacodyl 10 mg Q48H PRN senna 1-2 Tab BID PRN sodium phosphate 1 Enema Daily PRN magnesium hydroxide 30 mL Daily PRN ondansetron (PF) 2-4 mg Q4H PRN hydrALAZINE (APRESOLINE) IVPB (General Care) 10 mg Q1H PRN Allergies: Sulfa (sulfonamide antibiotics), Ibuprofen, Cephalexin, Nitrofurazone, Topiramate, Rofecoxib and Macrobid History Social History ??? Marital Status: Single Spouse Name: N/A Number of Children: N/A ??? Years of Education: N/A Occupational History ??? Not on file. Social History Main Topics ??? Tobacco Use: Never ??? Alcohol Use: No ??? Drug Use: ??? Sexually Active: Other Topics Concern ??? Not on file Social History Narrative ??? No narrative on file ROS: General ROS: negative Ophthalmic ROS: wears glasses Respiratory ROS: no cough, shortness of breath, or wheezing Cardiovascular ROS: no chest pain or dyspnea on exertion Gastrointestinal ROS: no abdominal pain, change in bowel habits, or black or bloody stools Genito-Urinary ROS: no dysuria, trouble voiding, or hematuria OBJECTIVE: VS: Blood pressure 121/77, pulse 93, temperature 35.8 ??C (96.4 ??F), temperature source Tympanic, resp. rate 16, height 1.575 m (5' 2), weight 78.926 kg (174 lb), SpO2 95%. General: alert, cooperative, no distress, in the room Lungs: clear to auscultation bilaterally Heart: regular rate and rhythm, S1, S2 normal, no murmur, click, rub or gallop Abdomen: obese, +BS, firm, non-tender, non-distended, ventral hernia not well appreciated with cough or flexion Extremities: no edema, warm, venodynes Labs: Lab Results Component Value Date/Time ??? WBC 9.54 11/30/08 6:05 PM ??? HGB 14.6 11/30/08 6:05 PM ??? HCT 43.2 11/30/08 6:05 PM ??? PLT 279 11/30/08 6:05 PM ??? NA 141 11/30/08 6:10 PM ??? K 3.9 11/30/08 6:10 PM ??? CL 108 11/30/08 6:10 PM ??? CO2 25 11/30/08 6:10 PM ??? BUN 14 11/30/08 6:10 PM ??? CREATININE 0.73 11/30/08 6:10 PM ASSESSMENT Pt is a 28 y.o. female who presents for PROCEDURE ANALYST shunt revision by neurosurgery. Hemodynamically stable and BECKWITH currently well-controlled. PLAN: --NPO after midnight --pain control --plan for peritoneal placement of draining shunt tomorrow --will discuss pt with chief resident and with attending (Dr Boucher aware) We appreciate the opportunity to participate in this patient's care. MD Loco Barr Surgery [phone] Attestation statement: I discussed the patient with the resident/fellow at the time of the visit. Iagree with the findings and the plan of care documented in the resident's/fellow's note. 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 Pt had a VPS placed shortly after . This was apparently lengthened in the first 5 years oflife. No further surgery on her shunt was done since then. Pt now presents with stable baseline headaches, which she has had for many years. She reports a change in these headaches over the last 6 weeks, stating that they have become more frequent and lasting longer, with no response to standard medication. She also states that the past 2 weeks has been especially bad, with the headaches occuring on a daily basis. She states that the headaches get betterwith her sitting up and holding her head with her hands. She reports mild nausea over the course ofthe last few weeks. No dizziness or vomiting. No neck pain or stiffness. No double vision or other associated symptoms. Past Medical History Diagnosis Date ??? Hydrocephalus shunt placed 1978 ??? GERD (Gastroesophageal Reflux Disease) ??? Asthma ??? Depression ??? Ovarian Cyst History reviewed. No pertinent past surgical history. reports that she has never used tobacco. She reports that she does not currently drink alcohol. History Tobacco Use Never Home medsPrior to Admission medications Medication Sig Start Date End Date Taking? Authorizing Provider omeprazole (PRILOSEC) 20 mg capsule Take 20 mg by mouth daily. Yes Historical Provider, ranitidine (ZANTAC) 150 mg tablet Take 300 mg by mouth at bedtime. Yes Historical Provider, citalopram (CELEXA) 20 mg tablet Take 20 mg by mouth 2 times daily. Yes Historical Provider, mlphahavya-kmjhtlnykvgax-gdapedpw (FIORICET, ESGIC) 50-325-40 mg per tablet Take 1 Tab by mouth daily as needed for Headaches. Yes Historical Provider, acetaminophen (TYLENOL) 500 mg tablet Take 1,000 mg by mouth 4 times daily as needed for Pain. Yes Historical Provider, albuterol (PROVENTIL HFA, VENTOLIN HFA) 90 mcg/Actuation inhaler Inhale 2 Puffs as directed 3 timesdaily as needed for Wheezing. 8.5gm Yes Historical Provider, promethazine (PHENERGAN) 12.5 mg tablet Take 12.5 mg by mouth 3 times daily as needed for Nausea. Yes Historical Provider, ROS: as mentioned in HPI, all other pertinent ROS negative PE: Blood pressure 133/82, pulse 100, temperature 35.9 ??C (96.6 ??F), temperature source Tympanic,resp. rate 20, height 1.575 m (5' 2), weight 78.926 kg (174 lb), SpO2 97%. Gen:Awake and fully conversant. In no apparent distress Neuro: Pt is fully awake and alert, fully conversant, with clear fluent speech. Face is symmetric, with tongue central. Speech clear. Strong in UE's and LE's with no drift No clonus. Reflexes brisk Head: Symmetric, with no obvious deformity' No signs of inflammation over shunt tract Neck: Supple to motion, with no skin changes Eyes: Poor vision at baseline, wearing corrective glasses No papiledema noted, though optic discs appear pale bilateral PERLAi CV: Periph pulses palpable, RRR Pulm: No resp distress Abd: Soft, with mild upper abdominal tenderness. No lower abdominal tenderness Obese, with no mass lesions palpable Upper abdominal scar present Ext: Skin intact, with no lesions GCS = 15/15 Labs: No results found for this basename: wBC:1,Hgb:1,Hct:1,plt:1,Na:1,K:1,cl:1,CO2:1,BUN:1,Creatinine:1,ProTime:1, PTT:1,labINR:1 Imaging: CT scans reviewed: 11/30/2008 Mild enlargement of ventricles most notable in temporal horns Large posterior fossa cyst present, with cerebellar tissue on sides of post fossa 07/25/2008 Ventricular size at baseline in comparison to scans of 2001 and 1997 Shunt series: Proximal and distal catheters visualised. Pt has large amount of faecal loading in abdomen. ? Proximal catheter connection to distal catheter demonstrates a small gap. This could be a disconnection, or it could represent a burrhole reservoir. (Not clinically palpable) Assesment/Plan: 28 y.o. female with known Dandy Walker malformation shunted shortly after . Pthas not had a shunt revision in the last 25 years. 1. Admit to M6 floor 2. NPO for OR alejo 3. Gen Surg (Dr Drake) contacted in regards to distal catheter placement tomorrow. 4. CT Brainlab tonight as part of pre-op workup Attestation statement: I saw and examined the patient with the resident. I agree with the findings and plan of care documented in the resident's/fellow's note. 28 yo shunt at with Dandy Walker; shunt lengthened at [address] Dunbar. No problems except for recurrent headache. Seen by Dr. Ortega in 2002. Had recent CT in July with small ventricles. Headache worsened over days, presented to [facility] ER where CT showed enlarged ventricles. BECKWITH worsens with sitting up. No other neurological symptoms. CT to my view shows enlarged ventricles compared with prior study. Shunt is in occipital horn on R,which is distorted by very large DW cyst. Shunt has no valve or reservoir. Imp - shunt malfunction. No shunt study possible. Discussed proceeding to OR for likely new shunt placement, given the unlikelihood of revising current shunt. Ben Jama MD documented in this encounter Procedure Notes * Inpatient, Physician - 12/09/2008 1146 EDTAssociated Order(s): IMPLANT RECORD (PACEMAKER ONLY) - SCANNED * Inpatient, Physician - 12/09/2008 1146 EDTAssociated Order(s): ECG REPORT - SCANNED documented in this encounter OR Notes * Anesthesia Preprocedure Evaluation - Inpatient, Physician - 12/09/2008 1146 EDT * OR PreOp - Inpatient, Physician - 12/08/2008 1117 EDT * Anesthesia Procedure Notes - Inpatient, Physician - 12/01/2008 1303 EDT * OR Surgeon - Ben Jama MD - 12/01/2008 0000 EDT PROCEDURE REPORT PT TYPE: IP SERVICE DATE: 12/01/2008 SURGEON: Ben Jama MD [employer] DRIVER: Jos Whitt MD, Kristal Chakraborty MD PREOPERATIVE DIAGNOSIS Ventriculoperitoneal shunt malfunction. POSTOPERATIVE DIAGNOSIS Ventriculoperitoneal shunt malfunction. PROCEDURE Revision of distal shunt system, including insertion of programmable Strata valve and replacement of peritoneal catheter. ANESTHESIA General endotracheal. 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 The shunt was placed in the right occipital horn of the ventricle. She was followed by Dr Dunbar. She apparently underwent a revision at age 3 to lengthen the distal catheter. She has been having headaches on and off and over the last few days these have grown increasingly severe. She had a CT scan at an outside hospital in [facility], which showed an enlargement of the ventricular system as compared with a scan from July. 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 This system on x-ray had no reservoir or valve and so could not be investigated. On the basis of a presumed shunt malfunction, she was to be taken to the operating room for a shunt revision. NARRATIVE Prior to the procedure, the patient underwent BrainLAB volumetric imaging for stereotactic placement of a ventricular catheter if needed. It was presumed that the old shunt tubing would be brittle and perhaps would have to be left in place and not revised. The patient was taken to the operating room, and once under general anesthesia via endotracheal tube, she was positioned supine on the operating room table with the head clamped in a Rabago pin clamp. The fiducial was placed in the [place] registration carried out, and anatomic landmarks were checked. A potential entry point in the right frontal area in front of the coronal suture was marked using a BrainLAB probe and a small patchof hair was clipped there. Over the tubing distal to its insertion point, superior and posterior tothe ear, another site was marked. An abdominal site was also marked below the right costal margin. The scalp hair, right neck, chest, and all of the abdomen were prepared with Hibiclens, alcohol, andDuraPrep and sterilely draped. The site over the distal tubing was injected with local anesthetic and was opened. The tubing was of a type unfamiliar to me and had a metal spiral to reinforce it within it; however, the tubing itself was quite soft and easily manipulated. The tubing was cut at this point and the proximal end clipped after ascertaining excellent flow of clear spinal fluid. The distal end was then tested and runoff into the peritoneal was very sluggish, stopping at around 250 mm. Therefore, this was a distal shunt malfunction. We did not then need to place a frontal catheter. Inkeeping with the prior plan, a valve would be placed. A previously programmed Strata valve at 1.5 setting was brought into the field. The right abdominal incision was made and dissection carried downto the peritoneum. A tunneler was then used to connect these two incisions, making use of an intervening third incision just above the clavicle. The BioGlide peritoneal catheter was placed through the tunnel and then flushed and connected to the distal end of the valve. The proximal end of the valve was then connected to the proximal catheter, and the valve was then seated into a subgaleal pocket created by pulling down on the peritoneal end. When the valve was in place, excellent spontaneous flow of spinal fluid was seen from the distal catheter before it was placed within the peritoneum. A pursestring suture was tied around the peritoneal entry site. All wounds were then thoroughly irrigated and closed with 3-0 Vicryl for the deeper layers and 4-0 Vicryl Rapide for the skin. Blood loss was negligible. There were no specimens sent and no identified complications. Unless otherwise noted, there were no complications, no blood loss, cultures obtained, specimens removed, or drains retained. ESTIMATED BLOOD LOSS FLUIDS SPECIMENS COMPLICATIONS Ben Jama MD Professor [facility] Division of Neurological Surgery - Ben Jama MD A - mt Job ID: [id number] Document ID: [id number] cc: MD Kristal Miller MD Susan S Labarthe, MD Paul R Newton, MD documented in this encounter ED Notes * Mariajose Hanks, WILLIAM - 11/30/2008 2214 EDT Pt transported to [place] [address] via w/c by transport team * Mariajose Hanks RN - 11/30/2008 2156 EDT Report called to [place] [address] nurse * Mariajose Hanks RN - 11/30/20082021 EDT Pt eating turkey sandwich and drinking kyra jessica * Art Wallace - 11/30/2008 1814 EDT Blood drawn via butterfly needle per protocol, tiger and purple tube(s) sent to lab per order. * John Garcia - 11/30/2008 1640 EDT Seen by neurosurg and admitted documented in this encounter Miscellaneous Notes * Scanned Note-Null - Inpatient, Physician - 12/25/2008 1631 EDT * Scanned Note-Null - Inpatient, Physician - 12/09/2008 1146 EDT * Scanned Note-Null - Inpatient, Physician - 12/09/2008 1146 EDT * Scanned Note-Null - Inpatient, Physician - 12/09/2008 1146 EDT documented in this encounter Plan of Treatment Not on file documented as of this encounter Procedures Procedure Name Priority Date/Time Associated Diagnosis Comments CYTOPATHOLOGY Routine 12/23/2008 0:00 EDT IMPLANT RECORD - SCANNED 12/09/2008 11:46 EDT ECG REPORT - SCANNED 12/09/2008 11:46 EDT PTT STAT 12/01/2008 7:23 EDT PROTIME STAT 12/01/2008 7:23 EDT PREPARE RED BLOOD CELLS Routine 12/02/19 09 3:13 EDT ANTIBODY IDENTIFICATION Routine 12/02/19 09 1:49 EDT COMPLETE BLOOD COUNT AND DIFFERENTIAL STAT 11/30/2008 23:37 EDT BUN Routine 11/30/2008 23:37 EDT CREATININE Routine 11/30/2008 23:37 EDT ELECTROLYTES Routine 11/30/2008 23:37 EDT TYPE AND SCREEN Routine 11/30/2008 22:[address] HEAD WO CONTRAST 11/30/2008 2 0:38 EDT SED RATE STAT 11/30/2008 18:10 EDT C REACTIVE PROTEIN STAT 11/30/2008 18 :10 EDT BUN STAT 11/30/2008 18:10 EDT CREATININE STAT 11/30/2008 18:10 EDT ELECTROLYTES STAT 11/30/2008 18:10 EDT SED RATE Routine 11/30/2008 18:05 EDT COMPLETE BLOOD COUNT AND DIFFERENTIAL STAT 11/30/2008 18:05 EDT SHUNT SERIES STAT 11/30/2008 17:53 EDT OUTSIDE CD - CT NEURO 11/30/2008 17:14 EDT OUTSIDE CD - CT NEURO 11/30/2008 17:11 EDT documented in this encounter Results * CYTOPATHOLOGY (12/23/2008 0:00 EDT) Pathology Report: CYTOPATHOLOGY REPORT ? Reports generated via electronic interface contain original data; ? however they are lacking the format of the original report. ? Caution should be taken when reading/interpreti ng unformatted reports. ? Name: ? CORDELIA CARRILLO ? Accession #: ? [id number] ? : ? 1980 (Age: 28) ??F ?Collect Date: ? 12/23/2008 ? Location: ? [facility] ? Receive Date: ? 12/24/2008 ? Provider: ?CORDELL D MATTHEW MD ? Copy to: ? Specimen/Source: ?Pap Test, Cervix/Endocervix, ThinPrep Imaging System ? with manual evaluation ? Last Menstrual Period: ? unknown ? Other: ? HPVA - HPV testing requested if ASC-US on the current ThinPrep Pap test. ? SPECIMEN ADEQUACY ? Satisfactory for Evaluation ? - transformation zone component present ? GENERAL CATEGORIZATION ? Negative for Intraepithelial Lesion or Malignancy ? Document reviewed and electronically signed by: ? Angela Verville,CT(ASCP) ? Report Date: ??12/27/2008 12:59 ? End of Report ? [facility] 12/23/2008 12/24/2008 us Cordell Velez MD PATHOLOGY ORDERABLES Final Res ult [facility] [address] [place] [address] * ECG REPORT - SCANNED (12/09/2008 11:46 EDT) 12/09/2008 11:4 6 EDT Narrative 12/09/2008 13:47 EDT Ordered by an unspecified provider. Transcriptions Inpatient, Physician - 12/09/2008 11:46 EDT Physician Inpatient MD PROCEDURE/MINOR SURGICAL ORDERABLES Final Result * IMPLANT RECORD (PACEMAKER ONLY) - SCANNED (12/09/2008 11:46 EDT) 12/09/2008 11:4 6 EDT Narrative 12/09/2008 13:47 EDT Ordered by an unspecified provider. Transcriptions Inpatient, Physician - 12/09/2008 11:46 EDT Physician Inpatient MD PROCEDURE/MINOR SURGICAL ORDERABLES Final Result * PTT (12/01/2008 7:23 EDT) PTT 28 20 - 35 secs [facility] Comment:Therapeutic Heparin range: 60-100 seconds Blood specimen (specimen) 12/01/2008 7:23 EDT 12/01/2008 7:29 EDT Result [facility] Jos Whitt MD HEMATOLOGY & PF4 ORDERABLES Fin al Result Performing Organization Address City/State/[facility] Co de Phone Number [facility] [address] [place] [address] * PROTIME (12/01/2008 7:23 EDT) Pro Time 13.9 12.0 - 15.0 secs [facility] I.N.R. 1.0 0.9 - 1.1 Ratio [facility] Comment: Moderate Intensity Coumadin INR = 2.0-3.0 Adjustments in anticoagulant therapy dose should be based upon the INR and NOT the Pro Time. Blood specimen (specimen) 12/01/2008 7:23 EDT 12/01/2008 7:29 EDT Jos Whitt MD HEMATOLOGY & PF4 ORDERABLES Fin al Result Performing Organization Address [facility] Co de Phone Number [facility] [address] [place] [address] * PREPARE RED BLOOD CELLS (12/01/2008 3:13 EDT) [facility] Product Code -3 RED BLOOD CELLS,ADENINE- SALINE ADDED,LEUKOCYT ES REDUCED [facility] Donor Number [id number] [facility] Unit ABO B [facility] Unit Rh NEG [facility] Cross Match Interp Compatible [facility] Unit Status Released From Crossmatch [facility] 12/01/2008 3:13 EDT 12/01/2008 3:13 EDT Jaya Dickens MD BLOOD BANK ORDERABLES Final Re sult Performing Organization Address [facility] Co de Phone Number [facility] [address] [place] [address] * ANTIBODY IDENTIFICATION (12/01/2008 1:49 EDT) [facility] AB Identification Possibility of a specific antibody not excuded [facility] 12/01/2008 1:49 EDT 12/01/2008 1:49 EDT Jaya Dickens MD BLOOD BANK TESTS Final Result Performing Organization Address [facility] Co de Phone Number [facility] [address] [place] [address] * (ABNORMAL) HEMAGRAM AND DIFFERENTIAL (11/30/2008 23:37 EDT) [facility] WBC 9.76 4.0 - 12.4 K/cmm [facility] RBC 4.70 3.86 - 5.04 M/cmm [facility] Hemoglobin 13.7 11.6 - 15.2 gm/dl [facility] HCT 41.7 34.9 - 44.4 % [facility] MCV 89 81 - 98 fl [facility] MCH 29.2 26.7 - 33.3 pg [facility] MCHC 32.9 32.1 - 35.9 gm/dl [facility] PLT 278 141 - 320 K/cmm [facility] RDW-CV 13.1 11.7 - 14.6 % [facility] Neutrophils 59.4 45.5 - 79.7 % [facility] Lymphocytes 29.1 15.0 - 46.8 % [facility] Monocytes 9.6 1.8 - 12.0 % [facility] Eosinophils 1.6 0.6 - 6.9 % [facility] Basophils 0.3 0.2 - 1.4 % [facility] ABS Neutrophils 5.80 2.20 - 8.85 K/cmm [facility] ABS Lymphs 2.84 1.09 - 3.30 K/cmm [facility] ABS Monocytes 0.93(H) 0.1 - 0.8 K/cmm [facility] ABS Eosinophils 0.15 0.03 - 0.61 K/cmm [facility] ABS Basophils 0.03 0.01 - 0.11 K/cmm [facility] Type of Diff: Automated [facility] Blood specimen (specimen) 11/30/2008 23:37 EDT 11/30/2008 23:56 EDT us Jaya Dickens MD PACKAGES & DNA PROBE ORDERABLE S Final Result Performing Organization Address [facility] Co de Phone Number [facility] [address] [place] [address] * CREATININE (11/30/2008 23:37 EDT) Creatinine 0.90 0.7 - 1.5 mg/dl [facility] GFR, Calculated >60 ml/min/1.7 3m2 [facility] Blood specimen (specimen) 11/30/2008 23:37 EDT 11/30/2008 23:56 EDT us Jaya Dickens MD CHEMISTRY & BLOOD GAS ORDERABL ES Final Result Performing Organization Address [facility] Co de Phone Number [facility] [address] [place] [address] * BUN (11/30/2008 23:37 EDT) BUN 14 10 - 26 mg/dl [facility] Blood specimen (specimen) 11/30/2008 23:37 EDT 11/30/2008 23:56 EDT Jaya Dickens MD CHEMISTRY & BLOOD GAS ORDERABL ES Final Result Performing Organization Address [facility] de Phone Number [facility] [address] [place] [address] * ELECTROLYTES (11/30/2008 23:37 EDT) Sodium 140 136 - 145 mEq/L [facility] Potassium 3.8 3.5 - 5.0 mEq/L [facility] Chloride 105 96 - 110 mEq/L [facility] CO2 27 24 - 32 mEq/L [facility] Blood specimen (specimen) 11/30/2008 23:37 EDT 11/30/2008 23:56 EDT Jaya Dickens MD CHEMISTRY & BLOOD GAS ORDERABL ES Final Result Performing Organization Address [facility] de Phone Number [facility] [address] [place] [address] * TYPE AND SCREEN (11/30/2008 22:43 EDT) ABO B [facility] Rh Factor Negative [facility] Antibody Screen Positive [facility] Comment:SAMPLE EXPIRES 12/04 AT 23.59 Blood specimen (specimen) 11/30/2008 22:43 EDT 11/30/2008 22:43 EDT Jaya Dickens MD BLOOD BANK TESTS Final Result Performing Organization Address [facility] de Phone Number [facility] [address] [place] [address] * CT HEAD WO CONTRAST (11/30/2008 20:38 EDT) Anatomical Region Laterality Modality Other 11/30/2008 20:3 8 EDT 12/01/2008 10:07 EDT Narrative 12/01/2008 10:[address] brain History: Headache, Dandy-Walker malformation, previously shunted Technique: Axial noncontrast images were obtained through the brain. Comparison: January 05, 2002 Findings: In the interval, the lateral ventricular system has enlarged. There is no midline shift. The position of the right parietal ventricular drainage catheter is unchanged. The size and position of the midline fourth ventricular cyst is stable. The displacement of the brainstem, cerebellar hemispheres, tentorium cerebelli and torcula are all stable. There is no evidence of acute intracranial hemorrhage or loss of coffman/white differentiation. There is the appearance of a 3 mm gap between the ventricular drainage catheter and the tubing just as the catheter exits the cranial vault. No fluid collection in this region is identified. The paranasal sinuses are clear. Conclusion: Interval enlargement of the lateral ventricular system. Overall, the size and position of the fourth ventricular midline cyst does not appear significant change. A small gap between the ventricular catheter and drainage tubing as the catheter exits the cranial vault raises the possibility of shunt malfunction. Procedure Note 12/01/2008 CT brain History: Headache, Dandy-Walker malformation, previously shunted Technique: Axial noncontrast images were obtained through the brain. Comparison: January 05, 2002 Findings: In the interval, the lateral ventricular system has enlarged. There is no midline shift. The position of the right parietal ventricular drainage catheter is unchanged. The size and position of the midline fourth ventricular cyst is stable. The displacement of the brainstem, cerebellar hemispheres, tentorium cerebelli and torcula are all stable. There is no evidence of acute intracranial hemorrhage or loss of coffman/white differentiation. There is the appearance of a 3 mm gap between the ventricular drainage catheter and the tubing just as the catheter exits the cranial vault. No fluid collection in this region is identified. The paranasal sinuses are clear. Conclusion: Interval enlargement of the lateral ventricular system. Overall, the size and position of the fourth ventricular midline cyst does not appear significant change. A small gap between the ventricular catheter and drainage tubing as the catheter exits the cranial vault raises the possibility of shunt malfunction. Jaya Dickens MD [facility] CT ORDERABLES Final Result * ELECTROLYTES (11/30/2008 18:10 EDT) Sodium 141 136 - 145 mEq/L [facility] Potassium 3.9 3.5 - 5.0 mEq/L [facility] Chloride 108 96 - 110 mEq/L [facility] CO2 25 24 - 32 mEq/L [facility] Blood specimen (specimen) 11/30/2008 18:10 EDT 11/30/2008 18:15 EDT Jaya Dickens MD CHEMISTRY & BLOOD GAS ORDERABL ES Final Result Performing Organization Address [facility] de Phone Number [facility] [address] [place] [address] * BUN (11/30/2008 18:10 EDT) [facility] BUN 14 10 - 26 mg/dl [facility] Blood specimen (specimen) 11/30/2008 18:10 EDT 11/30/2008 18:15 EDT Jaya Dickens MD CHEMISTRY & BLOOD GAS ORDERABL ES Final Result Performing Organization Address [facility] de Phone Number [facility] [address] [place] [address] * CREATININE (11/30/2008 18:10 EDT) [facility] Creatinine 0.73 0.7 - 1.5 mg/dl [facility] GFR, Calculated >60 ml/min/1.7 3m2 [facility] Blood specimen (specimen) 11/30/2008 18:10 EDT 11/30/2008 18:15 EDT Jaya Dickens MD CHEMISTRY & BLOOD GAS ORDERABL ES Final Result Performing Organization Address [facility] de Phone Number [facility] [address] [place] [address] * SED. RATE:WESTERGREN (11/30/2008 18:10 EDT) [facility] Sed. Rate Westergren Duplicate Test Request 0 - 20 mm/hr [facility] Blood specimen (specimen) 11/30/2008 18:10 EDT 11/30/2008 18:15 EDT Jaya Dickens MD HEMATOLOGY & PF4 ORDERABLES Fi nal Result Performing Organization Address [facility] de Phone Number [facility] [address] [place] [address] * C-REACTIVE PROTEIN (11/30/2008 18:10 EDT) Pathologist [facility] C-Reactive Protein <0.7 <1.0 mg/dl [facility] Blood specimen (specimen) 11/30/2008 18:10 EDT 11/30/2008 18:15 EDT Jaya Dickens MD CHEMISTRY & BLOOD GAS ORDERABL ES Final Result Performing Organization Address [facility] de Phone Number [facility] [address] [place] [address] * SED. RATE:ANALIERGREN (11/30/2008 18:05 EDT) Pathologist [facility] Sed. Rate Westergren 6 0 - 20 mm/hr [facility] 11/30/2008 18:0 5 EDT 11/30/2008 18:18 EDT Jaya Dickens MD HEMATOLOGY & PF4 ORDERABLES Fi nal Result Performing Organization Address [facility] de Phone Number [facility] [address] [place] [address] * HEMAGRAM AND DIFFERENTIAL (11/30/2008 18:05 EDT) [facility] WBC 9.54 4.0 - 12.4 K/cmm [facility] RBC 4.90 3.86 - 5.04 M/cmm [facility] Hemoglobin 14.6 11.6 - 15.2 gm/dl [facility] HCT 43.2 34.9 - 44.4 % [facility] MCV 88 81 - 98 fl [facility] MCH 29.9 26.7 - 33.3 pg [facility] MCHC 33.9 32.1 - 35.9 gm/dl [facility] PLT 279 141 - 320 K/cmm [facility] RDW-CV 13.0 11.7 - 14.6 % [facility] Neutrophils 65.8 45.5 - 79.7 % [facility] Lymphocytes 26.4 15.0 - 46.8 % [facility] Monocytes 6.5 1.8 - 12.0 % [facility] Eosinophils 1.0 0.6 - 6.9 % [facility] Basophils 0.3 0.2 - 1.4 % [facility] ABS Neutrophils 6.28 2.20 - 8.85 K/cmm [facility] ABS Lymphs 2.52 1.09 - 3.30 K/cmm [facility] ABS Monocytes 0.62 0.1 - 0.8 K/cmm [facility] ABS Eosinophils 0.09 0.03 - 0.61 K/cmm [facility] ABS Basophils 0.03 0.01 - 0.11 K/cmm [facility] Type of Diff: Automated [facility] Blood specimen (specimen) 11/30/2008 18:05 EDT 11/30/2008 18:18 EDT us Jaya Dickens MD PACKAGES & DNA PROBE ORDERABLE S Final Result Performing Organization Address City/State/[facility] Co de Phone Number [facility] [address] [place] [address] * SHUNT SERIES (11/30/2008 17:53 EDT) Anatomical Region Laterality Modality Other 11/30/2008 17:5 3 EDT 11/30/2008 19:26 EDT Narrative 11/30/2008 19:26 EDT SHUNT SERIES ??Nov 30, 2008 5:53:00 PM Signs and Symptoms/Comments: ??HEADACHE - Shunt in place Comparison: January 05, [address] Findings: A shunt series was performed. A PROCEDURE ANALYST shunt is seen extending from just left of midline, likely within the left lateral ventricle, through the occipital and right neck soft tissues, along the right chest and abdomen, and terminating within the right lower quadrant. There is no evidence of shunt disruption anywhere along its course. The lungs are clear. Bowel gas pattern is normal. Bones and soft tissues are unremarkable for age. Impression: No evidence of shunt disruption. I have personally reviewed the images and the above interpretation and agree with the findings. Procedure Note Dante Granado / Dante Granado / Dante Granado - 11/30/2008 SHUNT SERIES Nov 30, 2008 5:53:00 PM Signs and Symptoms/Comments: HEADACHE - Shunt in place Comparison: January 05, [address] Findings: A shunt series was performed. A PROCEDURE ANALYST shunt is seen extending from just left of midline, likely within the left lateral ventricle, through the occipital and right neck soft tissues, along the right chest and abdomen, and terminating within the right lower quadrant. There is no evidence of shunt disruption anywhere along its course. The lungs are clear. Bowel gas pattern is normal. Bones and soft tissues are unremarkable for age. Impression: No evidence of shunt disruption. I have personally reviewed the images and the above interpretation and agree with the findings. us Jaya Dickens MD [facility] DIAGNOSTIC IMAGING ORDERAB LES Final Result * OUTSIDE CD - CT NEURO (11/30/2008 17:14 EDT) Anatomical Region Laterality Modality Other 11/30/2008 17:1 4 EDT Narrative 11/30/2008 17:14 EDT Non Reportable Exam Procedure Note 11/30/2008 Non Reportable Exam us Jaya HUYNH OTHER IMAGING ORDERABLES F inal Result * OUTSIDE CD - CT NEURO (11/30/2008 17:11 EDT) Anatomical Region Laterality Modality Other 11/30/2008 17:1 1 EDT Narrative 11/30/2008 17:11 EDT Non Reportable Exam Procedure Note 11/30/2008 Non Reportable Exam us Jaya HUYNH OTHER IMAGING ORDERABLES F inal Result documented in this encounter Visit Diagnoses Diagnosis Dandy Walker malformation (HCC-CMS) Congenital hydrocephalus GERD (gastroesophageal reflux disease) Esophageal reflux documented in this encounter Administered Medications Inactive Administered Medications - up to 3 most recent administrations Medication Order MAR Action Action Date Dose Rate Site acetaminophen (TYLENOL) tablet 1,000 mg 1,000 mg, oral, 4 TIMES DAILY PRN, Starting on 11/30/08 at 2243, Until 12/02/08 at 1413, Pain, STAT Given 12/02/2008 11:47 EDT 500 mg Given 12/01/2008 16:03 EDT 1,000 mg Given 11/30/2008 23:00 EDT 1,000 mg citalopram (CELEXA) tablet 20 mg 20 mg, oral, 2 TIMES DAILY, First dose on 11/30/08 at 2300, Until Discontinued, STAT Given 12/02/2008 8:12 EDT 20 mg Given 12/01/2008 21:00 EDT 20 mg Given 12/01/2008 9:00 EDT 20 mg docusate sodium (COLACE) capsule 100 mg 100 mg, oral, 2 TIMES DAILY, First dose on 11/30/08 at 2300, Until Discontinued, STAT Given 12/02/2008 8:11 EDT 100 m g Given 12/01/2008 21:00 EDT 100 mg fentanyl citrate (PF) 50 mcg/mL injection 25-100 mcg 25-100 mcg, intravenous, PRN, Starting on 12/01/08 at 1140, Until 12/01/08 at 1447, Pain, Routine, Recovery (only) Given 12/01/2008 13:27 EDT 50 mcg Given 12/01/2008 13:16 EDT 50 mcg lactated ringers (LR) infusion 100 mL/hr, intravenous, CONTINUOUS, Starting on 12/01/08 at 1215, Until 12/01/08 at 1447, Routine, Recovery (only) New Bag 12/01/2008 13:30 EDT 100 mL/hr 100 mL/hr morphine injection 1-4 mg 1-4 mg, intravenous, PRN, Starting on 12/01/08 at 1140, Until 12/01/08 at 1447, Pain, Routine, Recovery (only) Given 12/01/2008 14:02 EDT 3 mg morphine injection 2-5 mg 2-5 mg, intravenous, EVERY 4 HOURS PRN, Starting on 11/30/08 at 2243, Until 12/02/08 at 1413, Pain, discomfort, STAT Given 12/02/2008 4:00 EDT 2 mg Given 12/01/2008 23:09 EDT 2 mg Port Given 12/01/2008 18:45 EDT 2 mg omeprazole (PRILOSEC) capsule 20 mg 20 mg, oral, AT BEDTIME, First dose (after last modification) on 11/30/08 at 2330, Until Discontinued, STAT Given 11/30/2008 23:30 EDT 20 mg omeprazole (PRILOSEC) capsule 20 mg 20 mg, oral, 2 TIMES DAILY BEFORE BREAKFAST & DINNER, First dose (after last modification) on 12/01/08 at 1600, Until Discontinued, STAT Given 12/02/2008 9:05 EDT 2 0 mg Given 12/01/2008 16:00 EDT 20 mg Given 12/01/2008 9:26 EDT 20 mg oxycodone (ROXICODONE) immediate release tablet 5-15 mg 5-15 mg, oral, EVERY 4 HOURS PRN, Starting on 11/30/08 at 2243, Until 12/02/08 at 1413, Pain, discomfort, STAT Given 12/02/2008 11:47 EDT 15 mg Given 12/02/2008 7:45 EDT 15 mg Given 12/01/2008 20:24 EDT 10 mg promethazine (PHENERGAN) tablet 12.5 mg 12.5 mg, oral, 3 TIMES DAILY PRN, Starting on 11/30/08 at 2243, Until 12/02/08 at 1413, Nausea, STAT Given 12/01/2008 8:31 EDT 12.5 mg Given 11/30/2008 23:00 EDT 12.5 mg ranitidine (ZANTAC) tablet 300 mg 300 mg, oral, AT BEDTIME, First dose on 11/30/08 at 2300, Until Discontinued, STAT Given 12/01/2008 21:00 EDT 300 mg Given 11/30/2008 23:00 EDT 300 mg sodium chloride 0.9 % with KCl 20 mEq/L infusion at 75 mL/hr, intravenous, CONTINUOUS, Starting on 11/30/08 at 2300, Until 12/02/08 at 1413, STAT Rate Documented 12/01/2008 23:00 EDT 75 mL/hr Rate Documented 12/01/2008 20:00 EDT 75 mL/hr New Bag 12/01/2008 15:16 EDT 75 mL/hr vancomycin (VANCOCIN) IVPB 1,000 mg 1,000 mg, intravenous, Administer over 60 Minutes, NOW X1, 1 dose, On 12/01/08 at 1145, Routine, Preprocedure Given by Other 12/01/2008 11:20 EDT 1,000 mg documented in this encounter Historical Medications * This list may reflect changes made after this encounter. albuterol (PROVENTIL HFA, VENTOLIN HFA) 90 mcg/Actuation inhaler Inhale 2 Puffs as directed 3 times daily as needed for Wheezing. 8.5gm promethazine (PHENERGAN) 12.5 mg tablet Take 12.5 mg by mouth 3 times daily as needed for Nausea. 06/08/2010 acetaminophen (TYLENOL) 500 mg tablet Take 1,000 mg by mouth 4 times daily as needed for Pain. 06/08/2010 butalbital-aceta minophen-caffein e (FIORICET, ESGIC) 50-325-40 mg per tablet Take 1 Tab by mouth daily as needed for Headaches. 06/08/2010 citalopram (CELEXA) 20 mg tablet Take 20 mg by mouth 2 times daily. 06/08/2010 ranitidine (ZANTAC) 150 mg tablet Take 300 mg by mouth at bedtime. 06/08/2010 omeprazole (PRILOSEC) 20 mg capsule Take 20 mg by mouth daily. 06/08/2010 added in this encounter Active and Recently Administered Medications Times are shown in EDT. Scheduled Medication Order 11/30/2008 12/01/2008 12/02/2008 citalopram (CELEXA) tablet 20 mg (CANCELED) 20 mg, oral, 2 TIMES DAILY, First dose on 11/30/08 at 2300, Until Discontinued, STAT 2300 (Given - Provider: Christy Lockhart RN) 0900 (Given - Provider: Emerald Costa RN)2100 (Given - Provider: Chris James RN) 0812 (Given - Provider: Clementina Maya) docusate sodium (COLACE) capsule 100 mg (CANCELED) 100 mg, oral, 2 TIMES DAILY, First dose on 11/30/08 at 2300, Until Discontinued, STAT 2300 (Not Given - Provider: Christy Lockhart RN - Reason: Patient/family refused) 0900 (Not Given - Provider: Emerald Costa RN - Reason: Patient/family refused)2100 (Given - Provider: Chris James RN) 0811 (Given - Provider: Clementina Maya) omeprazole (PRILOSEC) capsule 20 mg (CANCELED) 20 mg, oral, AT BEDTIME, First dose (after last modification) on 11/30/08 at 2330, Until Discontinued, STAT 2330 (Given - Provider: Christy Lockhart RN) omeprazole (PRILOSEC) capsule 20 mg (CANCELED) 20 mg, oral, 2 TIMES DAILY BEFORE BREAKFAST & DINNER, First dose (after last modification) on 12/01/08 at 1600, Until Discontinued, STAT 0926 (Given - Provider: Emerald Costa RN - Comment: changed to BID)1600 (Given - Provider: Emerald Costa RN) 0905 (Given - Provider: Clementina Maya) ranitidine (ZANTAC) tablet 300 mg (CANCELED) 300 mg, oral, AT BEDTIME, First dose on 11/30/08 at 2300, Until Discontinued, STAT 2300 (Given - Provider: Christy Lockhart RN) 2100 (Given - Provider: Chris James RN) vancomycin (VANCOCIN) IVPB 1,000 mg (COMPLETED) 1,000 mg, intravenous, Administer over 60 Minutes, NOW X1, 1 dose, On 12/01/08 at 1145, Routine, Preprocedure 1120 (Given by Other - Provider: Sherrie Yates - Comment: Given by Dr. Lora Hirsch - anesthesia) Continuous Medication Order 11/30/2008 12/01/2008 12/02/2008 lactated ringers (LR) infusion (CANCELED) 100 mL/hr, intravenous, CONTINUOUS, Starting on 12/01/08 at 1215, Until 12/01/08 at 1447, Routine, Recovery (only) 1330 (New Bag - Provider: Janae Melendez RN) sodium chloride 0.9 % with KCl 20 mEq/L infusion (CANCELED) at 75 mL/hr, intravenous, CONTINUOUS, Starting on 11/30/08 at 2300, Until 12/02/08 at 1413, STAT 2300 (New Bag - Provider: Christy Lockhart RN) 0700 (Rate Documented - Provider: Emerald Costa RN)1516 (New Bag - Provider: Emerald Costa RN)2000 (Rate Documented - Provider: Chris James RN)2300 (Rate Documented - Provider: Chris James RN) PRN Medication Order 11/30/2008 12/01/2008 12/02/2008 acetaminophen (TYLENOL) tablet 1,000 mg (CANCELED) 1,000 mg, oral, 4 TIMES DAILY PRN, Starting on 11/30/08 at 2243, Until 12/02/08 at 1413, Pain, STAT 2300 (Given - Provider: Christy Lockhart RN) 1603 (Given - Provider: Emerald Costa RN) 1147 (Given - Provider: Clementina Maya) fentanyl citrate (PF) 50 mcg/mL injection 25-100 mcg (CANCELED) 25-100 mcg, intravenous, PRN, Starting on 12/01/08 at 1140, Until 12/01/08 at 1447, Pain, Routine, Recovery (only) 1316 (Given - Provider: Gail Montano, WILLIAM)1327 (Given - Provider: Gail Montano RN) morphine injection 1-4 mg (CANCELED) 1-4 mg, intravenous, PRN, Starting on 12/01/08 at 1140, Until 12/01/08 at 1447, Pain, Routine, Recovery (only) 1402 (Given - Provider: Janae Melendez RN) morphine injection 2-5 mg (CANCELED) 2-5 mg, intravenous, EVERY 4 HOURS PRN, Starting on 11/30/08 at 2243, Until 12/02/08 at 1413, Pain, discomfort, STAT 1602 (Given - Provider: Emerald Costa RN)1845 (Given - Provider: Emerald Costa RN)2309 (Given - Provider: Chris James RN) 0400 (Given - Provider: Chris James RN) oxycodone (ROXICODONE) immediate release tablet 5-15 mg 5-15 mg, oral, EVERY 4 HOURS PRN, Starting on 11/30/08 at 2243, Until 12/02/08 at 1413, Pain, discomfort, STAT 2300 (Given - Provider: Christy Lockhart RN) 2024 (Given - Provider: Chris James RN) 0745 (Given - Provider: Clementina Maya)1147 (Given - Provider: Clementina Maya) promethazine (PHENERGAN) tablet 12.5 mg (CANCELED) 12.5 mg, oral, 3 TIMES DAILY PRN, Starting on 11/30/08 at 2243, Until 12/02/08 at 1413, Nausea, STAT 2300 (Given - Provider: Christy Lockhart RN) 0831 (Given - Provider: Emerald Costa RN) documented in this encounter Orders Medications Ordered That Jairo ht Not Have Been Administered Count Last Ordered Date First Ordered Date oxycodone-acetaminophen (PER COCET) 5-325 mg per tablet 1-2 Tab 1 12/01/2008 albuterol (PROVENTIL HFA, VE NTOLIN HFA) inhaler 2 Puff 1 11/30/2008 bisacodyl (DULCOLAX) suppository 10 mg 1 ocwzbsqqrd-ifvzbbmtfsmyb-qbm feine (FIORICET, ESGIC) 50-325-40 mg per tablet 1 Tab 1 11/30/2008 hydrALAZINE (APRESOLINE) 10 mg in sodium chloride 0.9 % 50 mL IVPB 1 11/30/2008 magnesium hydroxide (MILK OF MAGNESIA) 400 mg/5 mL suspension 30 mL 1 11/30/2008 magnesium sulfate in D5W 2 g /50 mL premade bag 1 11/30/2008 omeprazole (PRILOSEC) capsule 20 mg 1 11/30 ondansetron (PF) (ZOFRAN) 4 mg/2 mL injection 2-4 mg 1 11/30/2008 potassium chloride IVPB 20 mEq/100 mL 1 senna (SENOKOT) tablet 1-2 Tab 1 11/30/2008 sodium phosphate (FLEET) enema 1 Enema 1 Diet Count Last Ordered Date First Orde red Date DIET REGULAR 1 12/01/2008 Nursing Count Last Ordered Date First Orde red Date PLACE SEQUENTIAL COMPRESSION DEVICE 1 12/01 PL[address] BRITTANY HOSE 1 12/01/2008 OXYGEN THERAPY 1 11/30/2008 UP AD MELLY 1 11/30/2008 Admission Count Last Ordered Date First Orde red Date NOTIFY PPS OF DISCHARGE COMPLETE 1 12/03/19 09 NOTIFY PPS PATIENT ARRIVAL IN PACU 1 2008 NOTIFY PPS PATIENT TRANSFERRED OUT OF PACU 1 12/01/2008 PPS NOTIFICATION OF PATIENT ARRIVAL ON UNIT 2 12/01/2008 11/30/2008 ADMIT TO INPATIENT 2 11/30/2008 ADMITTING CONDITION 1 11/30/2008 TEACHING SERVICE 1 11/30/2008 documented in this encounter Care Teams Briquetter Operator Relationship Specialty Start Date End Date Nimisha Padilla MD [address] [place] [address] PCP - General 11/30/08 01/21/09 documented as of this encounter
--- OUTSIDE RECORDS SUMMARY | 2024-03-28 11:14 | XMS_ITS | Encounter Summary ---
Author Organization [facility] Address [facility] [place] [address] Care Team Providers Care Furnace Mechanic Helper Name Role Phone GuayabalWallace strauss ADELFO Primary Care Provider [phone]- [phone] Reason for Visit * Reason Onset Date Comments Appointment 06/24/2023 CT Neck, CT Ches t/Abd/Pelvis and follow up with Dr. Montana Encounter Details Date Type Department Care Team (Late st Contact Info) Description 06/24/2023 Telephone Administration [facility] [place] [address] Jason Sommers, RN Appointment (CT Neck, CT Chest/Abd/Pelvis and follow up with Dr. [...] Miscellaneous Notes * Telephone Encounter - Jason Sommers, RN - 06/24/2023 9:38 AM EST Called pt x [address] Neck, CT Chest/Abd/Pelvis and follow up with Dr. Montana, unable to leave message as mailbox is full, sending pt letter. documented in this encounter Plan of Treatment Not on file documented as of this encounter Visit Diagnoses Not on filedocumented in this encounter Care Teams Furnace Mechanic Helper Relationship Specialty Start Date End Date Wallace Negron APRN [address] [place] [address] PCP - General Family Medicine 08/26/21 documented as of this encounter
--- OUTSIDE RECORDS SUMMARY | 2024-03-28 11:14 | XMS_ITS | Encounter Summary ---
Author Organization [facility] Address [facility] [place] [address] Care Team Providers Care Ambulance Mechanic Name Role Phone MigdaliaWallace ADELFO Primary Care Provider [phone]- [phone] Reason for Visit * Reason Onset Date Comments Follow-up 05/31/[address] scan done Encounter Details Date Type Department Care Team (Late st Contact Info) Description 05/31/2023 Telephone Hematology/Oncology at [address] [address] Rosy Lee RN Follow-up (No ct scan done) Social History Tobacco Use Types Packs/Day Years [...] place to sleep or slept in a fci (including now)? No 04/20/2022 Sex and Gender Information Value Date Recorded Sex Assigned at Not on file Gender Identity Not on file Sexual Orientation Not on file documented as of this encounter Miscellaneous Notes * Telephone Encounter - Rosy Lee RN - 05/31/2023 10:47 AM EST Pt has not had ct scan yet. Called and left message to call us back about that. Spoke with her father Vivek and asked him to have her call us to get this set up. He agreed with plan. documented in this encounter Plan of Treatment Not on file documented as of this encounter Visit Diagnoses Not on filedocumented in this encounter Care Teams Ambulance Mechanic Relationship Specialty Start Date End Date Wallace Negron APRN [address] [place] [address] PCP - General Family Medicine 08/26/21 documented as of this encounter
--- OUTSIDE RECORDS SUMMARY | 2024-03-28 11:14 | XMS_ITS | Encounter Summary ---
Author Organization [facility] Address [facility] [place] [address] Care Team Providers Care Laboratory Technologist Name Role Phone Wallace Negron ADELFO Primary Care Provider +1- [phone] Encounter Details Date Type Department Care Team (Late st Contact Info) Description 01/19/2023 Orders Only [place]ology [place] [address] Asia Polk MD [facility] [address] [place]AT[place]Y [place] [address] Follicular lymphoma grade I, unspecified body region [...] region documented in this encounter Care Teams Laboratory Technologist Relationship Specialty Start Date End Date Wallace Negron APRN [address] [place] [address] PCP - General Family Medicine 08/26/21 documented as of this encounter
--- OUTSIDE RECORDS SUMMARY | 2024-03-28 11:14 | XMS_ITS | Encounter Summary ---
Author Organization [facility] Address [facility] [place] [address] Care Team Providers Care Crating And Moving Estimator Name Role Phone Wallace Negron APRN Primary Care Provider [phone]- [phone] Encounter Details Date Type Department Care Team (Late st Contact Info) Description 09/18/2021 2:00 PM EDT Office Visit Hematology [place] [address] Sebastian Raymundo MD [facility] [address] H[place] [address] Follicular lymphoma grade I, unspecified body region [...] Sign Reading Time Taken Comments Blood Pressure 124/66 09/18/2021 2:20 PM EDT Pulse 97 09/18/2021 2:20 PM EDT Temperature 36.5 ??C (97.7 ??F) 09/18/2021 2:20 PM ED T Respiratory Rate 18 09/18/2021 2:20 PM EDT Oxygen Saturation 97% 09/18/2021 2:20 PM EDT Inhaled Oxygen Concentration - - Weight - - Height - - Body Mass Index - - documented in this encounter Progress Notes * Sebastian Schmitt MD - 09/18/2021 2:00 PM EDT HEMATOLOGY STAFF ADDENDUM: I have independently [...] DM2 c/b neuropathy, 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 FAMILY Hx: No biological siblings No FH of Heme malignancies; mother with Portein C deficiency and DVT EXM : No palpable lymphadenopathy; abdomen is distended, firm, with dull note in RUG, epigastric regions and umbilical region; could not feel discrete mass PET CT : COMPARISON: CT abdomen/pelvis with IV and oral contrast from [facility] 07/06/2021. ?? FINDINGS: ?? HEAD/NECK: Subcentimeter bilateral level 1 and 2 FDG avid lymph nodes. Small left lower cervical/supraclavicular FDG avid lymph node. Incidental CT visualized partial opacification of the right maxillary sinus. Incompletely imaged known ventriculoperitoneal shunt catheter. ?? CHEST: Small bilateral FDG avid axillary lymph nodes, demonstrating fatty po on CT. Normal activity in all other soft tissue regions. ABDOMEN/PELVIS: FDG avid known ill-defined mesenteric rosemary mass with associated stranding, overall largely unchanged from the 06/08/2021 CT, difficult to measure discretely secondary to configuration, clearance representative measurement in AP diameter approximately 4 cm (axial CT image 132), SUV max 7.1. Highly FDG avid retroperitoneal lymph nodes, aortocaval, preaortic, and left periaortic, reference left para-aortic lymph node measuring 16 x 26 mm (axial CT image 146) with an SUV max 8.6. Subcentimeter in short axis highly FDG avid bilateral [...] scattered areas of subcutaneous stranding, presumably inflammatory. ?? SKELETON/EXTREMITIES: Highly FDG avid focus in the right clavicular head with subtle sclerosis noted on CT. No other discrete FDG avid osseous lesion identified in the remainder of the axial and visualized appendicular skeleton, noting somewhat heterogeneous diffuse marrow activity ?? IMPRESSION 1. 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 2. Small bilateral benign-appearing FDG avid axillary lymph nodes and subcentimeter bilateral cervical FDG avid lymph nodes, favored more likely to be reactive than representing additional sites of active lymphoma. 3. Highly FDG avid right clavicular head lesion with subtle sclerosis, suspicious for osseous lymphoma. ASSESSMENT/PLANS: 1) Follicular lymphoma Grade 1. Asymptomatic except for abd distension and early satiety which has been going on for the past 8 years. I reviewed all the labs. CBC, LDH, CMP,, quantitative immunoglobulins are all normal. I reviewed the PET/CT images personally, reviewed the results with the radiologist, reviewed the images and results with Radha and her mother. PET Showed FDG avid subcentimeter bilateral cervical, supraclavicular, , Ill-defined mesenteric rosemary mass with associated stranding,overall largely unchanged from the 06/08/2021 CT, AP diameter ~ 4.1cm, with SUV max 7.1. ; Highly FDG avid retroperitoneal lymph nodes, aortocaval, preaortic, and left periaortic, reference left para-aortic lymph node measuring 16 x 26 mm with an SUV max 8.6, subcentimeter bilateral common iliac lymph nodes. All these are anatomically largely unchanged since May,.. PET also showed Highly FDG avid focus in the right clavicular head with subtle sclerosis noted on CT. I will review her images with the radiologist discuss her case in the lymphoma tumor board to see if we need to biopsy the right clavicular head to rule out transformation. Otherwise, she does not have significant tumor burden or other indications to warrant therapy for her low-grade follicular lymphoma. I will call the patient after discussion in the lymphoma tumor board. 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 No personal Hx of VTE. 3) Partial opacification of the right maxillary sinus - seen on the PET. I recommend her PCP to refer her to ENT to f/up on this. Sebastian Schmitt MD [facility] 09/18/21 documented in this encounter Plan of Treatment Not on file documented as of this encounter Visit Diagnoses Diagnosis Follicular lymphoma grade I, unspecified body region documented in this encounter Care Teams Crating And Moving Estimator Relationship Specialty Start Date End Date Wallace Negron, LABOR SUPERVISOR [address] [place] [address] PCP - General Family Medicine 08/26/21 documented as of this encounter
--- OUTSIDE RECORDS SUMMARY | 2024-03-28 11:14 | XMS_ITS | Encounter Summary ---
Author Organization [facility] Address [facility] [place] [address] Care Team Providers Care Student Support Advisor Name Role Phone Wallace Negron ADELFO Primary Care Provider +1- [phone] Encounter Details Date Type Department Care Team (Latest Contact Info) Description 10/27/2022 Travel Social History Tobacco Use Types Packs/Day [...] place to sleep or slept in a intermediate (including now)? No 04/20/2022 Sex and Gender Information Value Date Recorded Sex Assigned at Not on file Gender Identity Not on file Sexual Orientation Not on file documented as of this encounter Plan of Treatment Not on file documented as of this encounter Visit Diagnoses Not on filedocumented in this encounter Care Teams Student Support Advisor Relationship Specialty Start Date End Date Wallace Negron APRN [address] [place] [address] [address] [place] [address] PCP - General Family Medicine 08/26/21 documented as of this encounter
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
--- OUTSIDE RECORDS SUMMARY | 2024-03-28 11:14 | XMS_ITS | Encounter Summary ---
Author Organization [facility] Address [facility] [place] [address] Care Team Providers Care Upper Cutter Machine Name Role Phone Wallace Negron ADELFO Primary Care Provider [phone]- [phone] Encounter Details Date Type Department Care Team (Late st Contact Info) Description 05/18/2023 Telephone Hematology and Oncology at [facility] [place] [phone] Lucretia Grey Social History Tobacco Use Types [...] place to sleep or slept in a fdc (including now)? No 04/20/2022 Sex and Gender Information Value Date Recorded Sex Assigned at Not on file Gender Identity Not on file Sexual Orientation Not on file documented as of this encounter Miscellaneous Notes * Telephone Encounter - Lucretia Chávez - 05/18/2023 11:54 AM EST Procedure Prior Authorization Procedure/Cpt: 46645, 10983 Ct c/a/p Rationale: C82.00 Health Plan: [employer] Medicare Authorizing Vendor: RADHA barone via [employer] Service Order/Case ID: Authorization #: [id number] (Abdomen and Pelvis CT) [id number] (Chest CT) [id number] (Neck CT Effective Date: 05/18/2023 - 08/16/2023 Status: Approved Rendering Facility: [facility] documented in this encounter Plan of Treatment Not on file documented as of this encounter Visit Diagnoses Not on filedocumented in this encounter Care Teams Upper Cutter Machine Relationship Specialty Start Date End Date Wallace Negron APRN [address] [place] [address] PCP - General Family Medicine 08/26/21 documented as of this encounter
--- OUTSIDE RECORDS SUMMARY | 2024-03-28 11:14 | XMS_ITS | Encounter Summary ---
Author Organization [facility] [place] [address] Care Team Providers Care Warehouse Loader Name Role Phone MigdaliaWallace ADELFO Primary Care Provider [phone]- [phone] Reason for Referral * Diagnostic Test (Routine) - Closed Specialty Diagnoses / Procedures Referred By Mari perez Referred To Contact Radiology Diagnoses Follicular lymphoma grade I, unspecified body region Procedures NM PET CT Skull Base to Mid-thigh Sebastian Raymundo MD [facility] [address] [place] [address] [place] [address] Referral ID Status Reason Start Date Expiration Date V isits Requested Visits Authorized [id number] Closed Specialty Service Requested 10/06/2021 04/07/2023 1 1 Reason for Visit * Diagnostic Test (Routine) - Closed Specialty Diagnoses / Procedures Referred By Mari perez Referred To Contact Radiology Diagnoses Follicular lymphoma grade I, unspecified body region Procedures NM PET CT Skull Base to Mid-thigh Sebastian Raymundo MD [facility] [place] [address] [place] [address] Referral ID Status Reason Start Date Expiration Date V isits Requested Visits Authorized [id number] Closed Specialty Service Requested 10/06/2021 04/07/2023 1 1 Encounter Details Date Type Department Care Team (Latest Contact Info) Description 01/22/2022 9:18 AM EDT Hospital Encounter [place] [address] Sebastian Raymundo MD [facility] [address] [place] [address] Follicular lymphoma grade I, unspecified body region Discharge Disposition: Home Social History Tobacco Use [...] CT SKULL BASE TO MID-THIGH ([facility]) Routine 01/22/2022 10:46 AM EDT Follicular lymphoma grade I, unspecified body region documented in this encounter Results * NM [...] who have questions please contact the health care team assistant that requested your imaging first. ? Narrative 01/22/2022 3:17 PM EDT EXAMINATION: NM PET CT STANDARD SKULL BASE TO MID-THIGH CLINICAL HISTORY: Non-Hodgkin lymphoma, staging; Low grade follicular lymphoma with PET showing uptake in the clavicle head TECHNIQUE: Following IV injection of 63-huknav-3-deoxyglucose (FDG) a standard uptake of approximately 60 [...] clavicle head TECHNIQUE: Following IV injection of 26-tbvqez-6-deoxyglucose (FDG) astandard uptake of approximately 60 minutes, [...] patients who have questions please contactthe health care team assistant that requested your imaging first. Sebastian Raymundo MD IMG PET ORDERABL ES documented in this encounter Visit Diagnoses Diagnosis Follicular lymphoma grade I, unspecified body region documented in this encounter Administered Medications Inactive Administered Medications - up to 3 most recent administrations Medication Order MAR Action Action Date Dose Rate Site fludeoxyglucose (F-18) FDG injection 0-20 mCi 0-20 mCi, Intravenous, ONCE PRN, 1 dose, Starting on Tue01/22/22 at 0946, Until Tue01/22/22 at 0939, Per Protocol, Radiology Contrast, Routine Given 01/22/2022 9:39 AM EDT 14 mCi documented in this encounter Care Teams Warehouse Loader Relationship Specialty Start Date End Date Wallace Negron, FINISHING RANGE FEEDER [address] [place] [address] [address] [place] [address] PCP - General Family Medicine 08/26/21 documented as of this encounter
--- OUTSIDE RECORDS SUMMARY | 2024-03-28 11:14 | XMS_ITS | Encounter Summary ---
Author Organization [facility] Address [address] [place] [address] Care Team Providers Care Ballistics Laboratory Gunsmith Name Role Phone Unavailable Primary Care Provider Unavailabl e Encounter Details Date Type Department Care Team (Late st Contact Info) Description 11/28/2001 17:44 EDT Hospital Encounter [address] [address] Jareth Ortega MD [address] [place] [address], [facility] [address] [place] [phone] Discharge Disposition: Auto Discharge Social History Tobacco [...] Procedure Name Priority Date/Time Associated Diagnosis Comments CHEST PA Routine 11/28/2001 15:13 EDT SKULL 1 TO 3 VIEWS Routine 11/28/2001 15 :13 EDT ABDOMEN AP 2 VIEWS Routine 11/28/2001 15 :13 EDT documented in this encounter Results * ABDOMEN AP 2 VIEWS (11/28/2001 15:13 EDT) Anatomical Region Laterality Modality Other 11/28/2001 15:1 3 EDT Narrative 02/19/2009 5:41 EDT UP SHUNT R/O DISCONNECTION ABDOMEN AP 2 VIEWS; PA CHEST 11/28/01 1500 CLINICAL HISTORY: UP shunt, rule out disconnection. Shunt tubing is noted traversing the right neck, right chest at the midline and extending into the abdomen, the tip is projected over the right lower quadrant of the abdomen. No discontinuity is observed in this length of tubing. The chest x-ray is otherwise normal. A large amount of stool is noted in the colon. The bowel gas pattern is non-obstructed. /jv Procedure Note Jason Parmar MD - 02/19/2009 UP SHUNT R/O DISCONNECTION ABDOMEN AP 2 VIEWS; PA CHEST 11/28/01 1500 CLINICAL HISTORY: UP shunt, rule out disconnection. Shunt tubing is noted traversing the right neck, right chest at the midline and extending into the abdomen, the tip is projected over the right lower quadrant of the abdomen. No discontinuity is observed in this length of tubing. The chest x-ray is otherwise normal. A large amount of stool is noted in the colon. The bowel gas pattern is non-obstructed. /jv Jareth Ortega MD [facility] DIAGNOSTIC IM[facility]ING [facility] Final Result * CHEST PA (11/28/2001 15:13 EDT) Anatomical Region Laterality Modality Other 11/28/2001 15:1 3 EDT Narrative 02/19/2009 5:41 EDT UP SHUNT R/O DISCONNECTION Procedure Note Jason Parmar MD - 02/19/2009 UP SHUNT R/O DISCONNECTION Jareth Ortega MD [facility] Final Result * SKULL 1 TO 3 VIEWS (11/28/2001 15:13 EDT) Anatomical Region Laterality Modality Other 11/28/2001 15:1 3 EDT Narrative 02/03/2009 3:27 EDT UP SHUNT R/O DISCONNECTION AP, LATERAL SKULL, 11/28/01, 1455 COMPARISON: None. FINDINGS: These films are just now submitted for interpretation and demonstrate a shunt catheter with a right posterior approach. No discontinuity is seen within the catheter. /[facility] Procedure Note Luan Altman MD / Prerna Elizondo MD - 02/03/2009 UP SHUNT R/O DISCONNECTION AP, LATERAL SKULL, 11/28/01, 1455 COMPARISON: None. FINDINGS: These films are just now submitted for interpretation and demonstrate a shunt catheter with a right posterior approach. No discontinuity is seen within the catheter. /[facility] Jareth Ortega MD IMG DIAGNOSTIC IMAGING [facility] Final Result documented in this encounter Visit Diagnoses Not on filedocumented in this encounter
--- OUTSIDE RECORDS SUMMARY | 2024-03-28 11:14 | XMS_ITS | Encounter Summary ---
Author Organization [facility] Address [address] [place] [address] Care Team Providers Care Financial Recording Clerk Name Role Phone Amanda Siegel MD Primary Care Provider [phone] Vivek Fortune MD Primary Care Provider [phone] Nimisha Padilla MD Primary Care Provider [phone] Encounter Details Date Type Department Care Team (Late st Contact Info) Description 04/17/2007 Results Only [facility] [address] [place] [address] Nusrat Rodriguez MD [address] [place] [address] Social History Tobacco Use Types Packs/Day Years [...] Priority Date/Time Associated Diagnosis Comments CYTOPATHOLOGY Routine 04/17/2007 0:00 EST documented in this encounter Results * CYTOPATHOLOGY (04/17/2007 0:00 EST) Pathology Report: CYTOPATHOLOGY REPORT Reports generated via electronic interface contain original data; however they are lacking the format of the original report. Caution should be taken when reading/interpreti ng unformatted reports. Name: ? RADHA CARRILLO ? Accession #: ? [id number] : ? 1980 (Age: 26) ??F ?Collect Date: ? 04/17/2007 Location: ? [facility] ? Receive Date: ? 04/18/2007 Provider: ?NUSRAT RODRIGUEZ MD Copy to: ? Specimen/Source: ?ThinPrep Pap Test, Endocervix, processed on Dr. TariffPrep Imaging System, with manual evaluation Last Menstrual Period: ? 4 months ago Other: ? HPVA - HPV testing requested if ASC-US on the current ThinPrep Pap test. ? SPECIMEN ADEQUACY ? Satisfactory for Evaluation - transformation zone component present GENERAL CATEGORIZATION ? Negative for Intraepithelial Lesion or Malignancy ? Document reviewed and electronically signed by: ? REEMA Polk(ASCP) ? Report Date: ??04/19/2007 13:34 End of Report [facility] 04/17/2007 04/18/2007 us Nusrat Rodriguez MD PATHOLOGY ORDERABLES Final Result [facility] [address] [place] [address] documented in this encounter Visit Diagnoses Not on filedocumented in this encounter Care Teams Financial Recording Clerk Relationship Specialty Start Date End Date Amanda Siegel MD [address] [place] [address] [phone] PCP - General 08/04/09 12/25/12 Vivek Fortune MD [address] [place] [address] PCP - General 01/22/09 08/03/09 Nimisha Padilla MD [address] [place] [address] PCP - General 11/30/08 01/21/09 documented as of this encounter
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
--- OUTSIDE RECORDS SUMMARY | 2024-03-28 11:14 | XMS_ITS | Encounter Summary ---
Author Organization [facility] Address [facility] [place] [address] Care Team Providers Care Merchandiser Seasonal Name Role Phone MigdaliaWallace ADELFO Primary Care Provider +1- [phone] Encounter Details Date Type Department Care Team (Latest Contact Info) Description 01/22/2022 12:09 PM EDT - 01/22/2022 11:59 PM EDT Hospital Encounter Hematology [place] [id number] Follicular lymphoma grade I, unspecified body region [...] Procedure Name Priority Date/Time Associated Diagnosis Comments HEMOGRAM Routine 01/22/2022 12:24 PM EDT Follicular lymphoma grade I, unspecified body region DIFFERENTIAL, AUTOMATED Routine 01/22/2022 12:24 PM EDT Follicular lymphoma grade I, unspecified body region HC CBC,PLT & AUTO DIFF Routine 12:24 PM EDT Follicular lymphoma grade I, unspecified body region HC LACTIC DEHYDROGENASE Routine 01/22/2022 12:24 PM EDT Follicular lymphoma grade I, unspecified body region COMPREHENSIVE METABOLIC PANEL Routine 01/22/2022 12:24 PM EDT Follicular lymphoma grade I, unspecified body region documented in this encounter Results * Differential, Automated (01/22/2022 12:24 PM EDT) Neutrophil % 64.0 % [facility] Neutrophil Absolute 4.34 1.70 - 6.10 x10(3)/[facility] Lymph % 22.4 % [facility] Lymphocytes Abs 1.5 0.9 - 3.2 x10(3)/[facility] Monocyte % 9.7 % [facility] Monocyte Abs 0.7 0.3 - 0.9 x10(3)/[facility] Eos % 3.4 % [facility] Eosinophils Abs 0.2 0.0 - 0.4 x10(3)/[facility] Basophil % 0.4 % [facility] Baso Absolute 0.0 0.0 - 0.1 x10(3)/[facility] Immature Gran % 0.10 % [facility] Comment: Immature granulocytes(IG's)percentage and absolute count will include metamyelocytes, myelocytes, and promyelocytes. Blood smears from CBCs yielding IG's will be scanned manually for concordance. If this scan disagrees with the automated IG or if promyelocytes are noted, a manual differential will be performed. Immature Gran Absolute 0.01 0.00 - 0.04 x10(3)/[facility] Blood 01/22/2022 12:2 4 PM EDT 01/22/2022 1:01 PM EDT Narrative Resulting Agency Comment Spec In Lab Sebastian Raymundo MD HEMATOLOGY ORDER KAREEN [facility] [place] [address] * Hemogram (01/22/2022 12:24 PM EDT) White Blood Cell 6.8 4.0 - 9.5 x10(3)/[facility] Red Blood Cell 4.70 4.00 - 5.21 x10(6)/[facility] Hemoglobin 13.5 11.7 - 15.5 g/dL [facility] Hematocrit 41.2 35.7 - 45.8 % [facility] Mean Cell Volume 87.7 82.6 - 94.4 fL [facility] Mean Cell Hemoglobin 28.7 27.1 - 32.0 pg [facility] Mean Cell Hemoglobin Concentration 32.8 31.7 - 35.0 g/dL [facility] Platelet 323 145 - 357 x10(3)/[facility] RDW Standard Deviation 40.0 37.0 - 46.0 [facility] RDW coefficient of variation 12.5 11.5 - 14.1 % [facility] Mean Platelet Volume 10.3 7.6 - 12.9 [facility] NRBC% auto 0.0 % [facility] NRBC Absolute 0.000 0.000 - 0.000 x10(3)/[facility] Blood 01/22/2022 12:2 4 PM EDT 01/22/2022 1:01 PM EDT Narrative Resulting Agency Comment Spec In Lab Sebastian Raymundo MD HEMATOLOGY ORDER KAREEN [facility] [place] [address] * Lactate Dehydrogenase (01/22/2022 12:24 PM EDT) Lactate Dehydrogenase 157 110 - 220 unit/L [facility] Blood 01/22/2022 12:2 4 PM EDT 01/22/2022 1:01 PM EDT Narrative Resulting Agency Comment Spec In Lab Sebastian Raymundo MD CHEMISTRY ORDERA BLES Performing Organization Address City/[facility]/ZIP Co de Phone Number [facility] [place] [address] * (ABNORMAL) Comprehensive metabolic panel (non-fasting) (01/22/2022 12:24 PM EDT) Glucose 95 65 - 199 mg/dL [facility] Comment:Diabetes: >=200 mg/d L plus symptoms Blood Urea Nitrogen 20(H) 8 - 18 mg/dL [facility] Creatinine 0.84 0.70 - 1.20 mg/dL [facility] Sodium 142 135 - 145 mmol/L [facility] Potassium 4.1 3.5 - 5.0 mmol/L [facility] Comment: Please note: ??Patients with WBC >100,000 may have falsely elevated Potassium levels. ??For accurate Potassium quantification in these patients send serum separator tube (gold top) for subsequent determinations. ??Contact the Clinical Chemistry Laboratory if there are any questions. Chloride 104 98 - 107 mmol/L [facility] Carbon Dioxide 29 22 - 31 mmol/L [facility] Anion Gap 9 5 - 15 mmol/L [facility] Calcium 9.6 8.5 - 10.5 mg/dL [facility] Protein, Total 7.3 6.1 - 8.0 g/dL [facility] Albumin 4.5 3.2 - 5.2 g/dL [facility] Aspartate Aminotransferase 13 0 - 30 unit/L [facility] Alanine Aminotransferase 25 0 - 30 unit/L [facility] Alkaline Phosphatase 130(H) 35 - 105 unit/L [facility] Bilirubin, Total 0.2 0.2 - 1.3 mg/dL [facility] Est Glomerular Filtration Rate 88 >=60 mL/min/1. 73 m?? [facility] Comment: This patient's estimated GFR was calculated using the 2020 CKD-EPI equation. The estimated GFR can vary from the measured GFR by up to 30% in the absence of rapidly changing kidney function. Assessment of the estimated GFR is not appropriate when creatinine concentrations are rapidly changing. For clinical situations in which a more precise estimate of GFR is necessary, consider alternative methods of GFR estimation such as a 24-hour urine creatinine clearance. Assignment of CKD stage 1-5 for patients with an eGFR near the transition point between stages may be based on clinical assessment of muscle mass and symptoms in addition to eGFR. Blood 01/22/2022 12:2 4 PM EDT 01/22/2022 1:01 PM EDT Narrative Resulting Agency Comment Spec In Lab Sebastian Raymundo MD CHEMISTRY ORDERA BLES [facility] [place] [address] documented in this encounter Visit Diagnoses Diagnosis Follicular lymphoma grade I, unspecified body region documented in this encounter Care Teams Merchandiser Seasonal Relationship Specialty Start Date End Date Wallace Negron APRN [address] [place] [address] PCP - General Family Medicine 08/26/21 documented as of this encounter
--- OUTSIDE RECORDS SUMMARY | 2024-03-28 11:14 | XMS_ITS | Encounter Summary ---
[place] [address] Care Team Providers Care Diving Coach Name Role Phone Wallace Negron APRN Primary Care Provider +1- [phone] Reason for Referral * Consultation (Urgent) - Closed Specialty Diagnoses / Procedures Referred By Mari perez Referred To Contact Hematology and Oncology Diagnoses Follicular lymphoma, unspecified follicular lymphoma type, unspecified body region Wallace Negron APRN [address] [place] [address] [facility] [address] [place] [address] Referral ID Status Reason Start Date Expiration Date V isits Requested Visits Authorized [id number] Closed Consult, Test & Treat PCP Updated and/or Approved 09/02/2021 09/02/2022 6 6 Encounter Details Date Type Department Care Team (Late st Contact Info) Description 09/02/2021 Transcribe Orders eDH Incoming Referrals [phone] Wallace Negron APRN [address] [place] [address] Follicular lymphoma, unspecified follicular lymphoma type, unspecified body region Social History Tobacco Use [...] as of this encounter Plan of Treatment Scheduled Referrals Name Type Priority Associated Diagnoses Orde r Schedule Referral to Hematology and Oncology Outpatient Referral Routine Follicular lymphoma, unspecified follicular lymphoma type, unspecified body region Ordered: 09/02/2021 documented as of this encounter Visit Diagnoses Diagnosis Follicular lymphoma, unspecified follicular lymphoma type, unspecified body region documented in this encounter Care Teams Diving Coach Relationship Specialty Start Date End Date Wallace Negron, STRIP MACHINE TENDER [address] [place] [address] [address] [place] [address] PCP - General Family Medicine 08/26/21 documented as of this encounter
--- OUTSIDE RECORDS SUMMARY | 2024-03-28 11:14 | XMS_ITS | Encounter Summary ---
Author Organization [facility] Address [facility] [place] [address] Care Team Providers Care Documentation Billing Clerk Name Role Phone Wallace Negron ADELFO Primary Care Provider +1- [phone] Reason for Visit * Diagnostic Test (Routine) - Closed Specialty Diagnoses / Procedures Referred By Mari perez Referred To Contact Radiology Diagnoses Follicular lymphoma grade I, unspecified body region Procedures NM PET CT Skull Base to Mid-thigh Sebastian Raymundo MD [facility] [address] HEMATOLOGY [place] [address] [facility] [place] [address] Referral ID Status Reason Start Date Expiration Date V isits Requested Visits Authorized [id number] Closed Specialty Service Requested 10/06/2021 04/07/2023 1 1 Encounter Details Date Type Department Care Team (Latest Contact Info) Description 01/22/2022 9:19 AM EDT - 01/22/2022 12:08 PM EDT Hospital Encounter [place] [address] Sebastian Raymundo MD [facility] [address] HEMATOLOGY [place] [address] Discharge Disposition: Home Social History [...] Follicular lymphoma grade I, unspecified body region POCT GLUCOSE Routine 01/22/2022 9:32 AM EDT documented in this encounter Results * POCT Glucose (01/22/2022 9:32 AM EDT) Glucose, POC 91 65 - 199 mg/dL [facility] Comment: Supplemental ranges: <140 mg/dL before meals <180 mg/dL all other times of the day Blood 01/22/2022 9:32 AM EDT 01/22/2022 9:32 AM EDT Sebastian Raymundo MD POINT OF CARE [facility] ORDERABLES [facility] [place] [address] documented in this encounter Visit Diagnoses Not on filedocumented in this encounter Care Teams Documentation Billing Clerk Relationship Specialty Start Date End Date Wallace Negron, MANAGER ADULT [address] [place] [address] PCP - General Family Medicine 08/26/21 documented as of this encounter
--- OUTSIDE RECORDS SUMMARY | 2024-03-28 11:14 | XMS_ITS | Encounter Summary ---
Author Organization [facility] Address [facility] [place] [address] Care Team Providers Care Lease Purchase Driver Name Role Phone [place] ADELFO Primary Care Provider +1- [phone] Encounter Details Date Type Department Care Team (Latest Contact Info) Description 04/20/2022 Travel Social History Tobacco Use Types Packs/Day [...] place to sleep or slept in a prison (including now)? No 04/20/2022 Sex and Gender Information Value Date Recorded Sex Assigned at Not on file Gender Identity Not on file Sexual Orientation Not on file documented as of this encounter Plan of Treatment Not on file documented as of this encounter Visit Diagnoses Not on filedocumented in this encounter Care Teams Lease Purchase Driver Relationship Specialty Start Date End Date Wallace Negron APRN [address] [place] [address] [address] [place] [address] PCP - General Family Medicine 08/26/21 documented as of this encounter
--- OUTSIDE RECORDS SUMMARY | 2024-03-28 11:15 | XMS_ITS | Encounter Summary ---
Author Organization Formerly [facility] Address [facility] [place] [address] Care Team Providers Care Substance Abuse Specialist Name Role Phone Maury Ware Primary Care Provider [phone] Reason for Visit * Consultation (Routine) - Closed Specialty Diagnoses / Procedures Referred By Mari perez Referred To Contact Neurology Diagnoses severe painful sens neuropathy, h/o Dandy Walker with prior shunt, needs electrical testing and disc of tx option Austin Puentes DO [address] [place] [address] Austin Castro MD [facility] [place] [address] Referral ID Status Reason Start Date Expiration Date V isits Requested Visits Authorized [id number] Closed Connection Center 10/18/2016 10/18/2017 1 1 Encounter Details Date Type Department Care Team (Latest Contact Info) Description 02/08/2017 10:00 AM EDT [place] [address] Prince De Jesus MD [facility] [place] [address] Small fiber neuropathy Social History Tobacco Use Types Packs/Day Years Used Date Smoking Tobacco: Never Assessed Sex and Gender Information Value Date Recorded Sex Assigned at Not on file Gender Identity Not on file Sexual Orientation Not on file documented as of this encounter Progress Notes * Prince De Jesus MD - 02/08/2017 10:00 AM EDT Radha Moya is a pleasant 36-year-old female referred for consultation at the request of Dr. Ricky Puentes for evaluation of peripheral neuropathy. She also has a primary care physician named Dr. Maury Ware. The patient has had burning in her feet over the last 2 to 3 years. 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 She has known diabetes over the last 3 to 4 years, although I do not known under what control the diabetes is. The patient was seen in the past by Dr. Medina, who apparently found no evidence of peripheral neuropathy on electrical studies. She denies any radicular symptoms from her back. Her hands are without symptoms. She does feel like her balance is off. Bowel and bladder are working normally. She feels like her legs are slightly weak. She denies any rashes. She is . She is a nonsmoker and a nondrinker. She works at the [employer] in [place], [place]. She likes to read. She gets minimal exercise. Her mother has COPD. Her father has glaucoma and macular degeneration. She has no children of her own. Her past medical history is remarkable for a diagnosis of type 2 diabetes over the last 3 to 4 years, obesity, Dandy-Walker malformation status post 2 shunts, headaches, somatoform disorder, squint surgery as a child, prior EGD for GERD. She is a pleasant, cooperative female who looks her stated age. She is overweight. She is accompanied by her mother. She appeared to have a reasonably normal mental status. Cranial nerves II-XII were intact. Her sensory exam was normal. Deep tendon reflexes were brisk throughout with positive Barbara's bilaterally and downgoing toes. (The patient claims to have always had brisk reflexes.) Her Romberg was negative. Her motor exam demonstrated no focal weakness, and she was able to stand on her heels and her toes. Her gait was normal. Mosarf-af-knhi and gqow-qo-nemx was intact. The patient underwent some nerve conduction studies/EMG, which showed no evidence of peripheral neuropathy. The patient may well have a small fiber neuropathy, which could likely be related to her type 2 diabetes. I think pursuing a bilevel skin punch biopsy to further confirm this disorder is probably not necessary, as it would not change her management. The patient has been on a myriad of medications for her burning feet, including Lyrica and Neurontin, which caused swelling. She also tried some amitriptyline, which made her short of breath. She also tried some Cymbalta, which made her feel tired. She is apparently ALLERGIC TO TOPIRAMATE, but I do not know what reaction she had. If not done so, I would check a hemoglobin A1c, B12, folate, SPEP, TSH, anti-Hu antibody, and an extractable nuclear antigen. There is a pharmacy in [place], [place] that will compound ointments that can be put on the feet to mitigate the pain of small fiber neuropathy. The name of the pharmacy is [facility] in [place], [place], telephone number is [phone] We did discuss weight loss and blood sugar control. All of her questions were answered. Thank you for this consultation. documented in this encounter Plan of Treatment Not on file documented as of this encounter Visit Diagnoses Diagnosis Small fiber neuropathy Unspecified hereditary and idiopathic peripheral neuropathy documented in this encounter Care Teams Substance Abuse Specialist Relationship Specialty Start Date End Date Maury Ware DO PCP - General General Internal Medicine 02/08/1711/06 documented as of this encounter
--- OUTSIDE RECORDS SUMMARY | 2024-03-28 11:15 | XMS_ITS | Encounter Summary ---
Author Organization [facility] Address [facility] [place] [address] Care Team Providers Care Curing Oven Attendant Name Role Phone Wallace Negron ADELFO Primary Care Provider [phone] Encounter Details Date Type Department Care Team (Late st Contact Info) Description 01/16/2008 Orders Only Dermatology at [place] [address] [place] [address] Fran Anthony MD [address], [place] [address] Social History Tobacco Use Types Packs/Day Years Used Date Smoking Tobacco: Never Assessed Overall Financial Resource Strain (CARDIA) Answe r [...] Priority Date/Time Associated Diagnosis Comments SURGICAL PATHOLOGY REPORT Routine 01/16/2008 6:25 PM EDT documented in this encounter Results * Surgical Pathology Report (01/16/2008 6:25 PM EDT) Surgical Pathology Report [id number] ? Location: [facility] The signing pathologist has (i) examined the relevant preparation(s) for the specimen(s) and (ii) rendered or confirmed the diagnosis(es). . ?Pathology Surgical Pathology Final Report Clinical Information Specimen Submitted: A - (L) submammary chest, shave: Clinical History: Bothersome mole Clinical Diagnosis: Nevus Report to: Fran Anthony MD, III [facility] Dermatology [place], [place] ??[address] Gross Description Labeled/Fixative: ? L submammary chest, formalin. Qty/Size/Weight: ?Single shave, 0.8 cm, rubbery, finely granular, ?pink-brown skin, inked. Sections/Processi ng: ??Trisected. ??(T1) crh/EJR Microscopic Description Slides reviewed, microscopic description not recorded. Diagnosis Left submammary chest, shave biopsy: Compound nevus with architectural disorder and mild cytologic atypia, involving peripheral and focal deep margins. CR-0 01/18/08 [facility] 01/18/08 Verified by: ? Doreen Paris MD ?Dermatopatholog ist ?(Electronic Signature) The attending pathologist whose signature appears on this report has reviewed all diagnostic slides and has edited the gross and/or microscopic portion of the report in rendering the final pathologic diagnosis. ANITA BECKWITH 01/16/2008 6:25 PM EDT Fran Anthony MD PATHOLOGY/CYTOLOGY O RDERABLES Performing Organization Address City/State/[facility] Co de Phone Number ANITA BECKWITH documented in this encounter Visit Diagnoses Not on filedocumented in this encounter Care Teams Curing Oven Attendant Relationship Specialty Start Date End Date Wallace Negron, GROUND DEFENCE OFFICER [address] [place] [address] PCP - General Family Medicine 08/26/21 documented as of this encounter
--- OUTSIDE RECORDS SUMMARY | 2024-03-28 11:15 | XMS_ITS | Encounter Summary ---
Author Organization [facility] Address [facility] [place] [address] Care Team Providers Care C Consultant Name Role Phone Vesta Madden ADELFO Primary Care Provid er Reason for Visit * Consultation (Routine) - Specialty Diagnoses / Procedures Referred By Mari perez Referred To Contact Neurology Diagnoses Polyneuropathy, unspecified UNDIAGNOSED SENSORY PERIPHERAL NEUROPATHY Procedures SANG OR Austin Taylor, DO [address] [place] [address] [facility] [address] [place] [address] Referral ID Status Reason Start Date Expiration Date V isits Requested Visits Authorized [id number] Consult, Test & Treat Connection Center PCP Updated and/or Approved 11/21/2018 11/22/2019 12 12 Encounter Details Date Type Department Care Team (Latest Contact Info) Description 02/12/2019 2:30 PM EDT [place] [id number] Prince De Jesus MD [facility] [place] [address] Small fiber neuropathy; Type 2 diabetes mellitus without complication, without long-term current use of insulin Social History Tobacco Use Types Packs/Day Years Used Date Smoking Tobacco: Never Assessed Sex and Gender Information Value Date Recorded Sex Assigned at Not on file Gender Identity Not on file Sexual Orientation Not on file documented as of this encounter Progress Notes * Prince De Jesus MD - 02/12/2019 2:30 PM EDT Radha Contreras is here in follow-up for her peripheral neuropathy. Prior electrical studies on 2 occasions were normal. She has pain in her legs to about the level of the knees. There is a burning neuropathic-like pain. She is presently taking Tylenol with codeine twice a day which seems to help to some degree. She is previously tried Lyrica, Neurontin, Elavil and Cymbalta none of which she could tolerate and none of which were helpful for her feet pain and leg pain. The Lyrica and Neurontin made her tongue swell. Patient has known diabetes. She has a Dandy-Walker malformation status post shunt placement. I saw her 2 years ago here in clinic and suggested that she get some blood work done but I have no record of it being done. We did discuss getting a bilevel skin punch biopsy for small fiber neuropathy but we decided to hold off on it. She tried a topical salve which was compounded and apparently unhelpful. I do not know exactly what she was given. Her exam today is similar to that of 2 years ago. She is accompanied by her mother. She is overweight. She is bright and alert with a normal mental status. Cranial nerves II through XII are intact. Her sensory exam was essentially normal and her Romberg was negative. Reflexes were normal and symmetric throughout with no signs of myelopathy. Her motor exam was full. Gait and stance were normal. Cerebellar testing was intact. I suggested that we pursue a bilevel skin punch biopsy and have made arrangements for this to be done. I am also going to order some blood work today including an SPEP, extractable nuclear antigen, angiotensin-converting enzyme and hemoglobin A1c. I will hopefully see the patient back in the near future for the skin biopsy. documented in this encounter Miscellaneous Notes * Addendum Note - Anai Bright - 02/12/2019 2:30 PM EDTAddended by: ANAI BRIGHT on: 02/12/2019 03:13 PM Modules accepted: Orders documented in this encounter Plan of Treatment Not on file documented as of this encounter Procedures Procedure Name Priority Date/Time Associated Diagnosis Comments [facility] EXTRACTABLE NUCLEAR ANTIGEN Routine 02/12/2019 3:21 PM EDT Small fiber neuropathy [facility] ANGIOTENSIN CONVERTING ENZYME Routine 02/12/2019 3:21 PM EDT Small fiber neuropathy HC SERUM PROT. ELECTROPHORESIS Routine 02/12/2019 3:21 PM EDT Small fiber neuropathy HC HEMOGLOBIN A1C Routine 02/12/2019 3:2 1 PM EDT Type 2 diabetes mellitus without complication, without long-term current use of insulin documented in this encounter Results * Angiotensin Converting Enzyme (02/12/2019 3:21 PM EDT) Zhao (SEPTEMBER) 37 16 - 85 unit/L [facility] Comment: Test Performed by: [place] [address] Aluminum Boat Inspector: Dev Pena M.D. Ph.D.; CLIA# [id number] Blood specimen (specimen) 02/12/2019 3:21 PM EDT 02/13/2019 6:28 AM EDT Narrative Resulting Agency Comment Spec In Lab Prince De Jesus MD LAB SEND OUT ORDERAB LES [facility] [place] [address] * Protein Electrophoresis, serum (02/12/2019 3:21 PM EDT) Total Prot Electrophoresis 7.4 6.1 - 8.0 gm/dL [facility] Albumin Electrophoresis 4.86 3.60 - 6.00 gm/dL [facility] Alpha 1 Globulin 0.19 0.10 - 0.30 gm/dL [facility] Alpha 2 Globulin 0.75 0.40 - 0.90 gm/dL [facility] Beta Globulin 0.81 0.50 - 1.00 gm/dL [facility] Gamma Globulin 0.78 0.50 - 1.30 gm/dL [facility] M1 Band None Detected None Detected [facility] Blood specimen (specimen) 02/12/2019 3:21 PM EDT 02/12/2019 3:31 PM EDT Narrative Resulting Agency Comment Spec In Lab Prince De Jesus MD CHEMISTRY ORDERABLES [facility] [place] [address] * Hemoglobin A1c (02/12/2019 3:21 PM EDT) Hemoglobin A1c 5.5 4.3 - 5.6 % [facility] Comment: Reference Range: 4.3 - 5.6% 5.7 - 6.4% - Increased Risk of Developing Diabetes Mellitus >= 6.5% - Consistent with diagnosis of Diabetes Mellitus In the absence of hyperglycemia (i.e. plasma glucose > 200 mg/dL) or classic symptoms of hyperglycemia a repeat measurement of HbA1c should be performed on a separate sample to confirm the diagnosis. Diagnosis and Classification of Diabetes Mellitus, Diabetes Care 2013; 36: Suppl. 1, S67-74 Estimated Average Glucose 111 mg/dL [facility] Comment: eAG equivalents for HbA1c percentages: HbA1c(%) ?eAG(mg/dL) 6.0 ?126 6.5 ?140 7.0 ?154 7.5 ?169 8.0 ?183 8.5 ?197 9.0 ?212 9.5 ?226 10.0 ? 240 Limitations: The eAG calculation has not been validated on women, individuals below 18 years old and above 70 years old, and individuals with hemoglobinopathies. Additional resources are available on the ADA website. Octavio SOLORIO, Sowmya J, Luigi R, et al. ??Translating the A1C assay into estimated average glucose values. ??Diabetes Care 2008:31(8):9474-4910. Blood specimen (specimen) 02/12/2019 3:21 PM EDT 02/12/2019 3:31 PM EDT Narrative Resulting Agency Comment Spec In Lab Prince De Jesus MD CHEMISTRY ORDERABLES Performing Organization Address [facility]/State/[facility] Co de Phone Number [facility] [place] [address] * Extractable Nuclear Antigen (ROSARIO) Ab (02/12/2019 3:21 PM EDT) ROSARIO Ab Test ?Result ?Flag ??Unit ??RefValue Ab to Extractable Nuclear Ag Eval,S ??SS-A/Ro Ab, IgG, S ?<0.2 ?U ? <1.0 (Negative) ??SS-B/La Ab, IgG, S ?<0.2 ?U ? <1.0 (Negative) ??Sm Ab, IgG, S ? <0.2 ?U ? <1.0 (Negative) ??POWERHOUSE MECHANIC SUPERVISOR Ab, IgG, S ?<0.2 ?U ? <1.0 (Negative) ??Scl 70 Ab, IgG, S ? <0.2 ?U ? <1.0 (Negative) ??Matilde 1 Ab, IgG, S ? <0.2 ?U ? <1.0 (Negative) ?Test Performed by: ?[facility] ?[address] [place] [address] ?Aluminum Boat Inspector: Dev Pena M.D. Ph.D.; CLIA# [id number] [facility] Blood specimen (specimen) 02/12/2019 3:21 PM EDT 02/13/2019 6:28 AM EDT Narrative Resulting Agency Comment Spec In Lab Prince De Jesus MD LAB SEND OUT ORDERAB LES [facility] [place] [address] documented in this encounter Visit Diagnoses Diagnosis Small fiber neuropathy Unspecified hereditary and idiopathic peripheral neuropathy Type 2 diabetes mellitus without complication, without long-term current use of insulin documented in this encounter Care Teams C Consultant Relationship Specialty Start Date End Date Vesta Madden APRN [address] [place] [address] PCP - General Family Medicine 11/23/18 08/13/20 documented as of this encounter
--- OUTSIDE RECORDS SUMMARY | 2024-03-28 11:15 | XMS_ITS | Encounter Summary ---
Author Organization [facility] [place] [address] Care Team Providers Care Cone Marker Name Role Phone Maury Ware DO Primary Care Provider [phone] Encounter Details Date Type Department Care Team (Late st Contact Info) Description 02/09/2017 External [place] [address] Prince De Jesus MD [facility] [place] [address] Social History Tobacco Use Types Packs/Day Years Used Date Smoking Tobacco: Never Assessed Sex and Gender Information Value Date Recorded Sex Assigned at Not on file Gender Identity Not on file Sexual Orientation Not on file documented as of this encounter Plan of Treatment Not on file documented as of this encounter Procedures Procedure Name Priority Date/Time Associated Diagnosis Comments EMG SCAN Routine 02/08/2017 documented in this encounter Results * Scan Doc: EMG (02/08/2017) Prince De Jesus MD MEDIA MGR SCAN EXT O RDR/RSLT documented in this encounter Visit Diagnoses Not on filedocumented in this encounter Care Teams Cone Marker Relationship Specialty Start Date End Date Maury Ware DO PCP - General General Internal Medicine 02/08/1711/06 documented as of this encounter
--- OUTSIDE RECORDS SUMMARY | 2024-03-28 11:15 | XMS_ITS | Encounter Summary ---
Author Organization Formerly [facility] Address [facility] [place] [address] Care Team Providers Care Wireless Communications Engineer Name Role Phone Wallace Negron APRN Primary Care Provider [phone] Encounter Details Date Type Department Care Team (Late st Contact Info) Description 07/24/2004 Orders [place] [address] Sree Nathan MD [facility] [address] [place] [address] Social History Tobacco Use Types Packs/Day Years [...] Associated Diagnosis Comments SURGICAL PATHOLOGY REPORT Routine 07/24/2004 4:06 PM EST documented in this encounter Results * Surgical Pathology Report (07/24/2004 4:06 PM EST) Surgical Pathology Report [id number] ? Location: The signing pathologist has (i) examined the relevant preparation(s) for the specimen(s) and (ii) rendered or confirmed the diagnosis(es). . ?Pathology Surgical Pathology Final Report Clinical Information Specimen Submitted: A - Biopsies, GE junction Clinical History: Chronic reflux symptoms, question Mckinney's esophagus. ??Mckinney's surveillance Gross Description Labeled/Fixative : ? GE junction biopsies, formalin. Qty/Size/Weight: ?Four, averaging 0.3 x 0.3 x 0.3 cm. Tissue Description: ?? Soft, mariscal-red tissue. Sections/Process ing: ??(T1) ??aje/SNS Microscopic Description Slides reviewed, microscopic description not recorded. Diagnosis Endoscopic biopsy - Gastric fundic type mucosa with mild chronic nonspecific inflammation. Negative for specialized intestinal metaplasia. CR-0 07/28/04 [facility]AS 07/28/04 Verified by: ? Sharmin Stephenson MD ?Pathologist ?(Electronic Signature) The attending pathologist whose signature appears on this report has reviewed all diagnostic slides and has edited the gross and/or microscopic portion of the report in rendering the final pathologic diagnosis. [facility] 07/24/2004 4:06 PM EST Sree Nathan MD PATHOLOGY/CYTOLOGY O RDERABLES Performing Organization Address City/State/[facility] Co de Phone Number [facility] documented in this encounter Visit Diagnoses Not on filedocumented in this encounter Care Teams Wireless Communications Engineer Relationship Specialty Start Date End Date Wallace Negron, RADIOLOGICAL HEALTH SPECIALIST [address] [place] [address] PCP - General Family Medicine 08/26/21 documented as of this encounter
--- OUTSIDE RECORDS SUMMARY | 2024-03-28 11:15 | XMS_ITS | Encounter Summary ---
Author Organization [facility] [place] [address] Care Team Providers Care Stamps Or Coins Salesperson Name Role Phone Wallace Negron APRN Primary Care Provider [phone] Encounter Details Date Type Department Care Team (Late st Contact Info) Description 12/01/2007 Orders Only Lab [facility] [place] [address] Michael Agosto MD DERMATOLOGY Social History Tobacco Use Types Packs/Day Years [...] place to sleep or slept in a [place] health care facility (including now)? No 04/20/2022 Sex and Gender Information Value Date Recorded Sex Assigned at Not on file Gender Identity Not on file Sexual Orientation Not on file documented as of this encounter Plan of Treatment Not on file documented as of this encounter Procedures Procedure Name Priority Date/Time Associated Diagnosis Comments SURGICAL PATHOLOGY REPORT Routine 12/01/2007 2:51 PM EDT documented in this encounter Results * Surgical Pathology Report (12/01/2007 2:51 PM EDT) Surgical Pathology Report [id number] ? Location: 4M The signing pathologist has (i) examined the relevant preparation(s) for the specimen(s) and (ii) rendered or confirmed the diagnosis(es). . ?Pathology Surgical Pathology Final Report Clinical Information Specimen Submitted: A - Shave, on left scalp B - Left proximal cheek, shave Clinical History: A - 6-mm pedunculated papule on L parietal scalp B - 4-mm brown papule, left proximal cheek Clinical Diagnosis: A - Epidermal nevus vs SK vs congenital nevus B - Epidermal nevus vs SK vs congenital nevus Gross Description A - Labeled/Fixative : A, formalin. Qty/Size/Weight: ?Single shave, 1.4 x 1.0 x 0.3 cm. Tissue Description: ?? [place], granular plaque. Sections/Process ing: ??The specimen is quadrisected. ??(T1) B - Labeled/Fixative : B, formalin. Qty/Size/Weight: ?Single shave, 0.9 cm, white with a 0.8-cm, pink ?papule. Sections/Process ing: ??Trisected. ??(T1) ??aje/SNS Microscopic Description Slides reviewed, microscopic description not recorded. Diagnosis A - Skin, left scalp, shave biopsy: ?? Dermal nevus, extending to the peripheral and deep specimen edges. B - Skin, Left proximal cheek, shave biopsy: ?? Dermal nevus, extending to the peripheral and deep specimen edges. CR-0 12/04/07 FA 12/04/07 Verified by: ? Yovany Cortez MD ?Dermatopatholo gist ?(Electronic Signature) The attending pathologist whose signature appears on this report has reviewed all diagnostic slides and has edited the gross and/or microscopic portion of the report in rendering the final pathologic diagnosis. ANITA BECKWITH 12/01/2007 2:51 PM EDT Michael Agosto MD PATHOLOGY/CYTOLOGY O RDERABLES ANITA BECKWITH documented in this encounter Visit Diagnoses Not on filedocumented in this encounter Care Teams Stamps Or Coins Salesperson Relationship Specialty Start Date End Date Wallace Negron APRN [address] [place] [address] PCP - General Family Medicine 08/26/21 documented as of this encounter
--- OUTSIDE RECORDS SUMMARY | 2024-03-28 11:15 | XMS_ITS | Encounter Summary ---
Author Organization [facility] Address [facility] [place] [address] Care Team Providers Care Reproduction Specialist Name Role Phone Wallace Negron APRN Primary Care Provider [phone] Encounter Details Date Type Department Care Team (Late st Contact Info) Description 09/20/2008 Orders [place] [address] Sae Gee MD [facility] [place] [address] Social History Tobacco Use Types Packs/Day Years [...] Associated Diagnosis Comments SURGICAL PATHOLOGY REPORT Routine 09/20/2008 3:57 PM EDT documented in this encounter Results * Surgical Pathology Report (09/20/2008 3:57 PM EDT) Surgical Pathology Report [id number] ? Location: 4T The signing pathologist has (i) examined the relevant preparation(s) for the specimen(s) and (ii) rendered or confirmed the diagnosis(es). . ?Pathology Addendum Report Addendum Discussion A - Distal esophagus biopsy: ?GMS stain for fungal organisms is negative. 09/25/08 AJE 09/25/08 Verified by: ? Litzy KWOK, Geovany ?Pathologist ?(Electronic Signature) The attending pathologist whose signature appears on this report has reviewed all diagnostic slides and has edited the gross and/or microscopic portion of the report in rendering the final pathologic diagnosis. ?Pathology Surgical Pathology Final Report Clinical Information Specimen Submitted: A - Tissue; Tissue B - Tissue; Polyp Clinical History: SDP-PE, odontophagia, dysphagia. ??Linear erosions in distal esophagus at 30-35 cm, soft, fleshy gastric polyp Clinical Diagnosis: Odontophagia Gross Description A - Labeled/Fixativ e: Tissue, formalin. Qty/Size/Weight : ?Four, averaging 0.2 cm in diameter. Tissue Description: ?? Soft, mariscal-pink, focally hemorrhagic tissues. Sections/Proces sing: ??(T1) B - Labeled/Fixativ e: Tissue polyp, formalin. Qty/Size/Weight : ?Two fragments, averaging 0.3 x 0.2 x 0.2 cm and ?0.4 x 0.3 x 0.3 cm. Tissue Description: ?? Soft, pink-mariscal tissues. Sections/Proces sing: ??The larger tissue is bisected. ??(T1) ??aje/PPS Microscopic Description Slides reviewed, microscopic description not recorded. Diagnosis A - Distal esophagus biopsy: ?Esophageal squamous mucosa with erosive esophagitis and focal ?necroinflamma tory debris consistent with ulceration. ?A GMS stain for fungal organisms is pending and will be reported in an ?addendum. B - Gastric polyp: ?Fundic gland polyp. . Diagnosis CR-0 09/23/08 AJE 09/23/08 Verified by: ? iLtzy KWOK, Geovany ?Pathologist ?(Electronic Signature) The attending pathologist whose signature appears on this report has reviewed all diagnostic slides and has edited the gross and/or microscopic portion of the report in rendering the final pathologic diagnosis. ANITA BECKWITH 09/20/2008 3:57 PM EDT Sae Gee MD PATHOLOGY/CYTOLOGY O RDERABLES ANITA BECKWITH documented in this encounter Visit Diagnoses Not on filedocumented in this encounter Care Teams Reproduction Specialist Relationship Specialty Start Date End Date Wallace Negron, ADELFO [address] [place] [address] PCP - General Family Medicine 08/26/21 documented as of this encounter
[2024-03-28 12:20] LABS: Vitamin B12 610 pg/mL (193-986)
== END 2024-03-28 11:11 | disposition home or self-care (01) ==
LOC: LBO 11:10
PROVIDERS: PCP Nurse Practitioner Family; Visit Provider Nurse Practitioner Family
DX: R73.03 Prediabetes (principal); M79.2 Neuralgia and neuritis, unspecified
CPT/HCPCS: 36415; 82607

== ENCOUNTER 2024-04-11 16:26 | Outpatient (REF) | payer OTHER, SELFPAY | END 2024-04-11 16:27 | disposition home or self-care (01) | LOC: LBN 16:26 | PROVIDERS: PCP Nurse Practitioner Family; Visit Provider Nurse Practitioner Family | DX: N39.0 Urinary tract infection, site not specified (principal) | CPT/HCPCS: 87086 ==

== ENCOUNTER 2024-05-16 13:59 | Outpatient (REF) | payer MEDICARE, SELFPAY ==
--- OUTSIDE RECORDS SUMMARY | 2024-05-16 14:02 | XMS_ITS | Referral Summary ---
Author Organization [facility] Address [address] [place] [address] Care Team Providers Care Internal Control Specialist Name Role Phone Maury Ware Primary Care Provider [phone] Allergies Active Allergy Reactions Criticality Noted Date [...] on file Medical Devices Implanted Type Area Automatic Bandsaw Tender Device Identifier Shelf Expiration Date Model / Serial / Lot Pallet Stone Inserter Shunt-Stata Ii Valve 2008 Mri Cond 1.5/3t Description:STAVE AND BOLT EQUALIZER shunt - Stata II valve, per prism [...] Advance Directives For more information, please contact: [phone] * Full Code (Latest Code Status on File) Date Activated Date Inactivated Comments 01/01/2009 1:43 01/03/2009 16:58 * Full Code Date Activated Date Inactivated Comments 11/30/2008 22:43 12/02/2008 14:13 Care Teams Internal Control Specialist Relationship Specialty Start Date End Date Maury Ware DO [address] [place] [address] PCP - General 06/10/17
--- OUTSIDE RECORDS SUMMARY | 2024-05-16 14:02 | XMS_ITS | Encounter Summary ---
Author Organization [facility] Address [address] [place] [address] Care Team Providers Care Tobacco Sizer Name Role Phone Maury Ware Primary Care Provider [phone] Encounter Details Date Type Department Care Team (Late st Contact Info) Description 10/27/2022 Lab Requisition [facility] Pathology & [place] [address] Outr Resulting Lab, Provider Social History Tobacco [...] 71 - 199 % 11/03/2022 12:22 EDT [facility] Comment: a. Acquired Protein C [...] HEMATOLOGY & PF4 ORD ERABLES Final Result [facility] [address] [place] [address] documented in this encounter Visit Diagnoses Not on filedocumented in this encounter Care Teams Tobacco Sizer Relationship Specialty Start Date End Date Maury Ware DO [address] [place] [address] PCP - General 06/10/17 documented as of this encounter
--- OUTSIDE RECORDS SUMMARY | 2024-05-16 14:02 | XMS_ITS | Encounter Summary ---
Author Organization [facility] Address [address] [place] [address] Care Team Providers Care Signal Supervisor Name Role Phone Maury Ware Primary Care Provider [phone] Encounter Details Date Type Department Care Team (Late st Contact Info) Description 09/26/2021 Lab Requisition [facility] Pathology & Laboratory Medicine - [address] [address] Outr Resulting Lab, Provider Social History Tobacco [...] Priority Date/Time Associated Diagnosis Comments ZZCOVID-19 TEST [facility] PCR Today 09/25/2021 13:00 EDT COVID-19 TESTING Routine 09/25/2021 13:0 0 EDT documented in this encounter Results * COVID-19 TEST [facility] PCR (09/25/2021 13:00 EDT) Swab 09/25/2021 13:0 0 EDT 09/26/2021 21:53 EDT us Provider Outr Resulting Lab MICROBIOLOGY - GENER AL ORDERABLES Final Result [facility] [address] [place] [address] * COVID-19 TESTING (09/25/2021 13:00 EDT) COVID-19 rt-PCR Result Negative Negative 09/27/2021 14:29 EDT [facility] Comment: This test has not [...] performed using the dada SARS-CoV-2 assay ([employer] on the Dada 6800 System Performing Lab Dada 6800 [facility] 09/27/2021 14:29 EDT [facility] Swab 09/25/2021 13:0 0 EDT 09/26/2021 21:53 EDT us Provider Outr Resulting Lab MICROBIOLOGY - GENER AL ORDERABLES Final Result [facility] [address] [place] [address] documented in this encounter Visit Diagnoses Not on filedocumented in this encounter Care Teams Signal Supervisor Relationship Specialty Start Date End Date Maury Ware DO [address] [place] [address] PCP - General 06/10/17 documented as of this encounter
--- OUTSIDE RECORDS SUMMARY | 2024-05-16 14:02 | XMS_ITS | Clinical Summary ---
Author Organization [facility] Address [address] [place] [address] Care Team Providers Care Dining Chair Seat Cushion Trimmer Name Role Phone Maury Ware Primary Care Provider [phone] Allergies Active Allergy Reactions Criticality Noted Date [...] Medical History Medical History Date Comments Hydrocephalus ([facility]) shunt pl aced 1978 GERD (gastroesophageal reflux disease) Asthma Depression Ovarian cyst Ventral hernia 2 yrs Hydrocephalus in ([facility]) Family History Medical History Relation Comments *Other(comment) [...] season) 2024 Medical Devices Implanted Type Area Box Blank Machine Feeder Device Identifier Shelf Expiration Date Model / Serial / Lot Pipe And Tank Fabricator Shunt-Stata Ii Valve 2008 Mri Cond 1.5/3t Description:TOURIST ADVISER shunt - Stata II valve, per prism Status post ventriculoperitoneal shunt Noted 12/31/2008 Strata valve set at 1.0 static magnetic field of 3.0 Lucero or less ? ? Spatial Gradient of 720 G/cm or less ? ? Radio Frequency (RF) Samson with an average Specific Absorption Rate (JAYLENE) of 3 W/kg for 15 minutes[address] [place] [address] MEDICARE Advance Directives For more information, please contact: [phone] * Full Code (Latest Code Status on File) Date Activated Date Inactivated Comments 01/01/2009 1:43 01/03/2009 16:58 * Full Code Date Activated Date Inactivated Comments 11/30/2008 22:43 12/02/2008 14:13 Care Teams Dining Chair Seat Cushion Trimmer Relationship Specialty Start Date End Date Maury Ware DO [address] [place] [address] PCP - General 06/10/17
--- OUTSIDE RECORDS SUMMARY | 2024-05-16 14:03 | XMS_ITS | Encounter Summary ---
Author Organization [facility] Address [address] [place] [address] Care Team Providers Care Ship Engines Operating Engineer Name Role Phone Amanda Siegel MD Primary Care Provider [phone] Reason for Visit * Reason Onset Date Comments Other 10/19/2010 Encounter Details Date Type Department Care Team (Late st Contact Info) Description 10/19/2010 Telephone [facility] Neurosurgery - [address] [id number] Ben Jama MD [address] [facility], [address] [place] [address] Other Social History Tobacco Use [...] - Maria Elena Plunkett RN - 10/19/2010 3651 EDT Patient saw PCP and was diagnosed with a cold. She was advised to follow up with PCP for reevaluation if she becomes short of breath or runs a fever greater than 101. Patient verbalized understanding. * Telephone Encounter - Jennifer Ramey - 10/19/2010 9439 EDT Radha would like to speak with Neurosurg RN regarding ?s she has on shunt...has bad cold/bronchitis and wonders if that could affect her shunt. * Telephone Encounter - Jennifer Ramey - 10/19/2010 3613 EDT Radha would like to speak with Neurosurg RN regarding ?s she has on shunt....specifically documented in this encounter Plan of Treatment Not on file documented as of this encounter Visit Diagnoses Not on filedocumented in this encounter Care Teams Ship Engines Operating Engineer Relationship Specialty Start Date End Date Amanda Siegel MD [address] [place] [address] PCP - General 08/04/09 12/25/12 documented as of this encounter
--- OUTSIDE RECORDS SUMMARY | 2024-05-16 14:03 | XMS_ITS | Encounter Summary ---
Author Organization [facility] Address [address] [place] [address] Care Team Providers Care Diplomatic Officer Name Role Phone Amanda Siegel MD Primary Care Provider Encounter Details Date Type Department Care Team (Late st Contact Info) Description 02/02/2011 Results Only Imaging [facility] [phone] Amina Medina MD [address] [place] [address] Social History Tobacco Use Types Packs/Day [...] of the cervical spine. Amina Medina MD [facility] MRI ORDERABLES Final R esult documented in this encounter Visit Diagnoses Not on filedocumented in this encounter Care Teams Diplomatic Officer Relationship Specialty Start Date End Date Amanda Siegel MD [address] [place] [address] PCP - General 08/04/09 12/25/12 documented as of this encounter
--- OUTSIDE RECORDS SUMMARY | 2024-05-16 14:03 | XMS_ITS | Encounter Summary ---
Author Organization [facility] Address [address] [place] [address] Care Team Providers Care Play Leader Name Role Phone LevVivek hassan Primary Care Provider Encounter Details Date Type Department Care Team (Latest Contact Info) Description 08/10/2016 11:24 EDT - 08/10/2016 23:59 EDT Hospital Encounter [address] [address] Unknown, Provider, MD Discharge Disposition: Home or [...] on filedocumented in this encounter Care Teams Play Leader Relationship Specialty Start Date End Date Vivek Ohara DO PCP - General 11/29/13 06/09/17 documented as of this encounter
--- OUTSIDE RECORDS SUMMARY | 2024-05-16 14:03 | XMS_ITS | Encounter Summary ---
Author Organization [facility] Address [address] [place] [address] Care Team Providers Care Buhr Mill Operator Name Role Phone Amanda Siegel MD Primary Care Provider [phone] Encounter Details Date Type Department Care Team (Late st Contact Info) Description 03/02/2011 10:59 EDT - 03/02/2011 23:59 EDT Hospital Encounter [address] [address] Amina Medina MD [address] [place] [address] Discharge Disposition: Auto Discharge Social History Tobacco [...] on filedocumented in this encounter Care Teams Buhr Mill Operator Relationship Specialty Start Date End Date Amanda Siegel MD [address] [place] [address] PCP - General 08/04/09 12/25/12 documented as of this encounter
--- OUTSIDE RECORDS SUMMARY | 2024-05-16 14:03 | XMS_ITS | Encounter Summary ---
Author Organization [facility] Address [address] [place] [address] Care Team Providers Care Synoptic Meteorologist Name Role Phone LevVivek hassan Primary Care Provider [phone] Reason for Visit * Reason Onset Date Comments Discuss Test Results 11/30/201311/29 Follow-up 12/04/2013 CT Appointment Related 12/06/2013 Encounter Details Date Type Department Care Team (Late st Contact Info) Description 11/30/2013 Telephone [facility] Neurosurgery - [facility] [address] [place], [place] [id number] Luisa Fontanez PA-C [address] [facility] [address] [place] [address] Discuss Test Results (11/29); Follow-up [...] appointment to be made for her in [place]. * Telephone Encounter - Portia Menendez - 12/04/2013 1113 EDT Pt is calling back for date and time of CT to be scheduled in [place], [place]. * Telephone Encounter - Luisa Mckay PA-C - 11/30/2013 1024 EDT Xrays without evidence of shunt disruption. Returned call to patient to discuss results. She wishesto proceed with a head CT at [facility]. Will order. * Telephone Encounter - Sree David - 11/30/2013 0907 EDT Please call pt with results of 11/29 series. 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
--- OUTSIDE RECORDS SUMMARY | 2024-05-16 14:03 | XMS_ITS | Encounter Summary ---
Author Organization [facility] Address [address] [place] [address] Care Team Providers Care Mathematics Professor Name Role Phone Amanda Siegel MD Primary Care Provider [phone] Reason for Visit * Reason Onset Date Comments Follow-up 10/06/2010 Encounter Details Date Type Department Care Team (Late st Contact Info) Description 10/06/2010 Telephone [facility] Neurosurgery - [address] [phone] Ben Jama MD [address] [facility], [address] [place] [address] Follow-up Social History Tobacco Use [...] Elena Plunkett RN - 10/06/2010 1028 EDT Mathematics Department Chair spoke with patient who wants Dr Jama [...] on filedocumented in this encounter Care Teams Mathematics Professor Relationship Specialty Start Date End Date Amanda Siegel MD [address] [place] [address] PCP - General 08/04/09 12/25/12 documented as of this encounter
--- OUTSIDE RECORDS SUMMARY | 2024-05-16 14:03 | XMS_ITS | Encounter Summary ---
Author Organization [facility] Address [address] [place] [address] Care Team Providers Care Jr. Systems Administrator Name Role Phone Amanda Siegel MD Primary Care Provider [phone] Reason for Visit * Reason Onset Date Comments New/Evolving Symptoms 05/05/2012 Encounter Details Date Type Department Care Team (Late st Contact Info) Description 05/05/2012 Telephone [facility] [address] [place], [place] [phone] Trish Mixon RN New/Evolving Symptoms Social History Tobacco Use Types Packs/Day Years [...] encounter Miscellaneous Notes * Telephone Encounter - Trish Mixon - 05/05/2012 2274 EST Pt called stating she is having a fever of 101 -102 unresolved by Tylenol. She has cold symptoms for a month and a half with coughing spells, yellowish to greenish mucous production, chest pain from coughing, and occasional shortness of breath. She has been taking nightquil and tylenol cold and flu without relief. She has been in contact with her PCP who she stated has done nothing for her. Advised pt she will need to seek a walk in clinic or the ER to rule out pneumonia or bronchitis. She has tingling to her right frontal head but denies vision or gait problem. She has mild nausea and sinus pressure but not a headache that corresponds with shunt problems. Pt verbalized understanding that she will either seek a walk in clinic or the ER today for immediate evaluation. documented in this encounter Plan of Treatment Not on file documented as of this encounter Visit Diagnoses Not on filedocumented in this encounter Care Teams Jr. Systems Administrator Relationship Specialty Start Date End Date Amanda Siegel MD [address] [place] [address] PCP - General 08/04/09 12/25/12 documented as of this encounter
--- OUTSIDE RECORDS SUMMARY | 2024-05-16 14:03 | XMS_ITS | Encounter Summary ---
Author Organization [facility] Address [address] [place] [address] Care Team Providers Care Local Az Truck Driver Name Role Phone Maury Ware Primary Care Provider [phone] Encounter Details Date Type Department Care Team (Late st Contact Info) Description 06/13/2017 Results Only Imaging [facility] [phone] Unknown, Provider, Social History Tobacco Use Types [...] on filedocumented in this encounter Care Teams Local Az Truck Driver Relationship Specialty Start Date End Date Maury Ware DO [address] [place] [address] PCP - General 06/10/17 documented as of this encounter
--- OUTSIDE RECORDS SUMMARY | 2024-05-16 14:03 | XMS_ITS | Encounter Summary ---
Author Organization [facility] Address [address] [place] [address] Care Team Providers Care Information Technology Administrator Name Role Phone Amanda Siegel MD Primary Care Provider [phone] Reason for Visit * Reason Onset Date Comments Foot Burn 08/31/2010 wants to know if there is another medication option for foot burning pain, please call Encounter Details Date Type Department Care Team (Late st Contact Info) Description 08/31/2010 Telephone [facility] Neurology - [address] [address] Maldonado Mcnally MD [address] [place] [address], [address] [place] [address] Foot Burn (wants to know [...] 2 caps at bedtime. Rx sent to [facility] in [place]. * Telephone Encounter - Mago Coronado - [...] EDT TC from Pt New phone number [phone]. C/o severe burning pain in both feet. [...] on filedocumented in this encounter Care Teams Information Technology Administrator Relationship Specialty Start Date End Date Amanda Siegel MD [address] [place] [address] PCP - General 08/04/09 12/25/12 documented as of this encounter
--- OUTSIDE RECORDS SUMMARY | 2024-05-16 14:03 | XMS_ITS | Encounter Summary ---
Author Organization [facility] Address [address] [place] [address] Care Team Providers Care Receiving Distribution Station Operator Name Role Phone Amanda Siegel MD Primary Care Provider [phone] Reason for Visit * Reason Onset Date Comments Toe Pain 11/16/2010 Encounter Details Date Type Department Care Team (Late st Contact Info) Description 11/16/2010 Telephone [facility] Neurosurgery - [place] [address] [place] [address] Maria Elena Plunkett RN Toe Pain [...] on filedocumented in this encounter Care Teams Receiving Distribution Station Operator Relationship Specialty Start Date End Date Amanda Siegel MD [address] [place] [address] PCP - General 08/04/09 12/25/12 documented as of this encounter
--- OUTSIDE RECORDS SUMMARY | 2024-05-16 14:03 | XMS_ITS | Encounter Summary ---
Author Organization [facility] Address [address] [place] [address] Care Team Providers Care Mail List Processor Name Role Phone Maury Ware Primary Care Provider [phone] Encounter Details Date Type Department Care Team (Late st Contact Info) Description 07/08/2020 Lab Requisition [facility] Pathology & Laboratory Medicine - [facility] [address] [place] [address] Elizabeth Cook, WIRE GALVANIZER [address] [place] [address] Encounter for other general examination Social History [...] types, PCR Negative Negative 07/18/2020 9:10 EST [facility] Comment:No E6 or E7 mRNA is detected from HPV types 16,18,31,33,35,39,45,51,52,56,58,59,66, and 68 by returns clerk mediated amplification. Papanicolaou smear specimen (specimen) CERVIX UTERI STRUCTURE / Unknown 07/07/2020 9:20 EST 07/15/2020 10:40 EST us Elizabeth Cook NP MICROBIOLOGY - GENERAL ORDERAB LES Final Result [facility] [address] [place] [address] * PAP TEST (07/07/2020 9:20 EST) Specimens A. Cervix and/or Endocervix , ThinPrep Imaging System with Manual Evaluation 07/18/2020 9:10 EST [facility] Specimen Adequacy Satisfactory for Evaluation - transformation zone component present 07/18/2020 9:10 EST [facility] General Categorization Negative for intraepithelial lesion or malignancy 07/18/2020 9:10 [facility] Attestation . 07/18/2020 9:10 [facility] at 0910 Clinical History See below 07/19/19 9:10 EST [facility] HPV The result for the Human Papillomavirus (HPV) Detection-High Risk Types is Negative. No E6 or E7 mRNA is detected from HPV types 16,18,31,33,35,39 ,45,51,52,56,58,5 9,66, and 68 by returns clerk mediated amplification.Augusta ting was performed on specimen [id number] and was resulted on 07/18/2020 0909 EST by BRANDON, LAB INSTRUMENT RESULTS IN 07/18/2020 9:10 EST [facility] Performing Lab [facility] 07/18/2020 9:10 EST [facility] Scanned Images 07/18/2020 9:10 EST [facility] Papanicolaou smear specimen (specimen) CERVIX UTERI STRUCTURE / Unknown 07/07/2020 9:20 EST 07/08/2020 10:51 EST us Elizabeth Cook NP PATHOLOGY ORDERABLES Final Res ult [facility] [address] [place] [address] documented in this encounter Visit Diagnoses Diagnosis Encounter for other general examination documented in this encounter Care Teams Mail List Processor Relationship Specialty Start Date End Date Maury Ware DO [address] [place] [address] PCP - General 06/10/17 documented as of this encounter
--- OUTSIDE RECORDS SUMMARY | 2024-05-16 14:03 | XMS_ITS | Encounter Summary ---
Author Organization [facility] Address [address] [place] [address] Care Team Providers Care Furnace Hand Name Role Phone Vivek Ohara DO Primary Care Provider [phone] Encounter Details Date Type Department Care Team (Late st Contact Info) Description 08/10/2016 Results Only [facility]- [facility] [phone] Hebert Christine MD [address] [facility] [address] [place] [address] Social History Tobacco Use Types [...] ? RADHA CARRILLO ? Accession #: ? [id number] ? : ? 1980 (Age: 36) ??F [...] is submitted entirely in D1. BARRY Jim ([facility]) 08/12/2016 9:16 AM End of Report [facility] 08/10/2016 18:5 9 EDT 08/11/2016 18:59 EDT us Hebert Christine MD PATHOLOGY ORDERABLES Final Resul t [facility] [address] [place] [address] documented in this encounter Visit Diagnoses Not on filedocumented in this encounter Care Teams Furnace Hand Relationship Specialty Start Date End Date Vivek Ohara DO PCP - General 11/29/13 06/09/17 documented as of this encounter
--- OUTSIDE RECORDS SUMMARY | 2024-05-16 14:03 | XMS_ITS | Encounter Summary ---
Author Organization [facility] Address [address] [place] [address] Care Team Providers Care Chinese Language Professor Name Role Phone Amanda Siegel MD Primary Care Provider [phone] Reason for Visit * Reason Onset Date Comments Medication Management 08/10/2010 STILL wait ing to hear back from Dr Mcnally, VERY frustrated, please call Encounter Details Date Type Department Care Team (Late st Contact Info) Description 08/10/2010 Telephone [facility] Neurology - [address] [phone] Maldonado Mcnally MD [address] [place] [address] Level 2 [place] [address] Medication Management (STILL waiting to [...] documented as of this encounter Care Teams Chinese Language Professor Relationship Specialty Start Date End Date Amanda Siegel MD [address] [place] [address] PCP - General 08/04/09 12/25/12 documented as of this encounter
--- OUTSIDE RECORDS SUMMARY | 2024-05-16 14:03 | XMS_ITS | Encounter Summary ---
Author Organization [facility] Address [address] [place] [address] Care Team Providers Care Electronic Imager Name Role Phone Amanda Siegel MD Primary Care Provider [phone] Reason for Visit * Reason Comments Peripheral Neuropathy Having a lot of pa in Encounter Details Date Type Department Care Team (Late st Contact Info) Description 10/01/2010 Telephone [facility] Neurology - [address] [address] Maldonado Mcnally MD [address] [place] [address] Level 2 [place] [address] Peripheral Neuropathy (Having a lot [...] Maldonado Mcnally MD - 10/06/2010 1630 EDT Clotilde Logan, Noted. If she is unwilling to [...] documented as of this encounter Care Teams Electronic Imager Relationship Specialty Start Date End Date Amanda Siegel MD [address] [place] [address] PCP - General 08/04/09 12/25/12 documented as of this encounter
--- OUTSIDE RECORDS SUMMARY | 2024-05-16 14:03 | XMS_ITS | Encounter Summary ---
Author Organization [facility] Address [address] [place] [address] Care Team Providers Care Preventive Medicine Specialist Name Role Phone Amanda Siegel MD Primary Care Provider [phone] Reason for Visit * Reason Onset Date Comments Results 03/31/2010 CT results Encounter Details Date Type Department Care Team (Late st Contact Info) Description 03/31/2010 Telephone [facility] Neurosurgery - [facility] [address] [place], [place] [phone] Luisa Fontanez PA-C [address] [facility] Level 4 [place] [address] Results (CT results) Social History [...] Telephone Encounter - Lisa Gustafson - 03/31/2010 6488 EST Patient calling looking for results of CT done in [facility]. She believes she had it done on 03/19. documented in this encounter Plan of Treatment Not on file documented as of this encounter Visit Diagnoses Not on filedocumented in this encounter Care Teams Preventive Medicine Specialist Relationship Specialty Start Date End Date Amanda Siegel MD [address] [place] [address] PCP - General 08/04/09 12/25/12 documented as of this encounter
--- OUTSIDE RECORDS SUMMARY | 2024-05-16 14:03 | XMS_ITS | Encounter Summary ---
Author Organization [facility] Address [address] [place] [address] Care Team Providers Care Client Finance Analyst Name Role Phone Amanda Siegel MD Primary Care Provider [phone] Reason for Visit * Reason Onset Date Comments Other 07/02/2010 not enough urine for random nydia lyon Encounter Details Date Type Department Care Team (Late st Contact Info) Description 07/02/2010 Telephone [facility] Neurology - [address] [phone] Maldonado Mcnally MD [address] [place] [address] Level 2 [place] [address] Other (not enough urine for [...] encounter Miscellaneous Notes * Telephone Encounter - Mladonado Mcnally MD - 07/07/2010 1621 EST Mary, [...] on filedocumented in this encounter Care Teams Client Finance Analyst Relationship Specialty Start Date End Date Amanda Siegel MD [address] [facility] [address] [place] [address] PCP - General 08/04/09 12/25/12 documented as of this encounter
--- OUTSIDE RECORDS SUMMARY | 2024-05-16 14:03 | XMS_ITS | Encounter Summary ---
Author Organization [facility] Address [address] [place] [address] Care Team Providers Care Riveter Name Role Phone Kirk Siegel MD Primary Care Provider [phone] Encounter Details Date Type Department Care Team (Late st Contact Info) Description 05/18/2011 Results Only [facility]- [facility] [phone] Crissy Lewis MD [address] [place] [address] Social History Tobacco Use Types Packs/Day Years [...] ? RADHA CARRILLO ? Accession #: ? [id number] ? : ? 1980 (Age: 31) ??F [...] Final Resu lt [facility] [address] [place] [address] documented in this encounter Visit Diagnoses Not on filedocumented in this encounter Care Teams Riveter Relationship Specialty Start Date End Date Kirk Siegel MD [address] [place] [address] PCP - General 08/04/09 12/25/12 documented as of this encounter
--- OUTSIDE RECORDS SUMMARY | 2024-05-16 14:03 | XMS_ITS | Encounter Summary ---
Author Organization [facility] Address [address] [place] [address] Care Team Providers Care Sales Clerk Food Name Role Phone Amanda Siegel MD Primary Care Provider [phone] Rain Scott NP Primary Care Provider [phone] Vivek Ohara DO Primary Care Provider [phone] Ma[place] Ware DO Primary Care Provider [phone] Reason for Visit * Reason Comments Referral Request Was expecting PT ref erall to [facility]. [place]. Encounter Details Date Type Department Care Team (Late st Contact Info) Description 07/07/2010 Telephone [facility] Neurology - S [place] [address] [place] [address] Maldonado Mcnally MD [address] [place] [address], Level 2 [place] [address] Referral Request (Was expecting PT referall to [facility]. [place] Social History Tobacco Use Types Packs/Day Years [...] restrictions, has appt tomorrow, please fax to [phone] or [phone], PT's name is Jarvis. * Telephone Encounter [...] on filedocumented in this encounter Care Teams Sales Clerk Food Relationship Specialty Start Date End Date Amanda Siegel MD [address] [place] [address] PCP - General 08/04/09 12/25/12 Rain Scott NP [address] [place] [address] [address] [place] [address] PCP - General 12/26/12 11/28/13 Vivek Ohara DO [address] [place] [address] [address] [place] [address] PCP - General 11/29/13 06/09/17 Ma[place] Ware DO [address] [place] [address] PCP - General 06/10/17 documented as of this encounter
--- OUTSIDE RECORDS SUMMARY | 2024-05-16 14:03 | XMS_ITS | Encounter Summary ---
Author Organization [facility] Address [address] [place] [address] Care Team Providers Care Newspaper Vendor Name Role Phone Amanda Siegel MD Primary Care Provider [phone] Reason for Visit * Reason Onset Date Comments Other 07/22/2010 referral Encounter Details Date Type Department Care Team (Late st Contact Info) Description 07/22/2010 Telephone [facility] Neurosurgery - [address] [address] Maldonado Mcnally MD [address] [place] [address] 2 [place] [address] Other (referral) Social History Tobacco [...] for PT and will send another req. [facility] fax---------[phone] * Telephone Encounter - Madlonado Mcnally MD - 07/22/2010 1838 EDT Script was mailed to [facility]. (in [facility])If it has not arrived there, I [...] on filedocumented in this encounter Care Teams Newspaper Vendor Relationship Specialty Start Date End Date Amanda Siegel MD [address] [place] [address] PCP - General 08/04/09 12/25/12 documented as of this encounter
--- OUTSIDE RECORDS SUMMARY | 2024-05-16 14:03 | XMS_ITS | Encounter Summary ---
Author Organization [facility] Address [address] [place] [address] Care Team Providers Care Sizing Machine And Drier Operator Name Role Phone Amanda Sieegl MD Primary Care Provider [phone] Reason for Visit * Reason Onset Date Comments Rash 09/03/2010 pt started Cymba lta about a week ago and now has a rash Encounter Details Date Type Department Care Team (Late st Contact Info) Description 09/03/2010 Telephone [facility] Neurology - S [place] [address] [place] [phone] Maldonado Mcnally MD [address] [place] [address], Level [address] [place] [address] Rash (pt started Cymbalta about [...] Encounter - Maldonado Mcnally MD - 09/14/2010 8272 EDT Mayte Delarosa. Noted. Maldonado * Telephone [...] on filedocumented in this encounter Care Teams Sizing Machine And Drier Operator Relationship Specialty Start Date End Date Amanda Siegel MD [address] [place] [address] PCP - General 08/04/09 12/25/12 documented as of this encounter
--- OUTSIDE RECORDS SUMMARY | 2024-05-16 14:03 | XMS_ITS | Encounter Summary ---
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 Shunt Encounter Details Date Type Department Care Team (Latest Contact Info) Description 11/29/2013 13:30 EDT Office Visit [facility] Neurosurgery - [address] [phone] Luisa Fontanez PA-C [address] [facility], Level 4 [place] [address] 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Primary Dx); Status post ventriculoperitoneal [...] noted No fluid collection about the valve. [place] easily depressed Shunt interrogated; setting of 1.0 verified without difficulty A/ 33 y.o. 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 She is in agreement with this plan. [...] 12/19/2013 14:1 7 EDT us Scan 2 Plant Attendant Or Assistant Operator ADMISSION ORDERABLES Final Result * SHUNT SERIES (11/29/2013 14:17 EDT) Anatomical Region Laterality Modality Other 11/29/2013 14:1 7 EDT 11/29/2013 16:49 EDT Narrative 11/29/2013 16:49 EDT SHUNT SERIES ??11/29/2013 2:17 PM Signs and Symptoms/Comments: 331.3-Communicating [id number]-CM; progressive headache s/p ACT ENGLISH TUTOR shunt Comparison December 27, 2012. AP, lateral [...] 11/29/2013 2:17 PM Signs and Symptoms/Comments: 331.3-Communicating [id number]-CM; progressive headache s/p ACT ENGLISH TUTOR shunt Comparison December 27, 2012. AP, lateral [...] device documented in this encounter Care Teams Typewriter Tester Relationship Specialty Start Date End Date Vivek Ohara DO PCP - General 11/29/13 06/09/17 documented as of this encounter
--- OUTSIDE RECORDS SUMMARY | 2024-05-16 14:03 | XMS_ITS | Encounter Summary ---
Author Organization [facility] Address [address] [place] [address] Care Team Providers Care Fiberglass Roving Winder Name Role Phone Vivek Ohara Primary Care Provider Reason for Visit * Reason Onset Date Comments Discuss Test Results 12/13/2013 12/12/13 CT Encounter Details Date Type Department Care Team (Late st Contact Info) Description 12/13/2013 Telephone [facility] Neurosurgery - [facility] [address] [place], [place] [phone] Luisa Fontanez PA-C [address] [facility], Level [address] [place] [address] Discuss Test Results (12/12/13 CT) [...] Encounter - Luisa Mckay PA-C - 12/13/2013 1125 EDT Spoke with Radha - head CT [...] on filedocumented in this encounter Care Teams Fiberglass Roving Winder Relationship Specialty Start Date End Date Vivek Ohara DO PCP - General 11/29/13 06/09/17 documented as of this encounter
--- OUTSIDE RECORDS SUMMARY | 2024-05-16 14:03 | XMS_ITS | Encounter Summary ---
Author Organization [facility] Address [address] [place] [address] Care Team Providers Care Spring Setter Name Role Phone Amanda Siegel MD Primary Care Provider [phone] Encounter Details Date Type Department Care Team (Late st Contact Info) Description 03/02/2011 Documentation Visit [facility] Neurosurgery - [place] [address] [place] [address] Jurgen Parra MD Social History Tobacco Use [...] on filedocumented in this encounter Care Teams Spring Setter Relationship Specialty Start Date End Date Amanda Siegel MD [address] [place] [address] PCP - General 08/04/09 12/25/12 documented as of this encounter
--- OUTSIDE RECORDS SUMMARY | 2024-05-16 14:03 | XMS_ITS | Encounter Summary ---
Author Organization [facility] Address [address] [place] [address] Care Team Providers Care Mobile Electronics Installer Name Role Phone Amanda Siegel MD Primary Care Provider [phone] Reason for Visit * Reason Onset Date Comments Medication Problem 09/08/2010 was told to s top medication, facial swelling went down, please call Encounter Details Date Type Department Care Team (Late st Contact Info) Description 09/08/2010 Refill [facility] Neurology - [place] [address] [place] [phone] Maldonado Mcnally MD [address] [place] [address], Level 2 [place] [address] Medication Problem (was told to [...] on filedocumented in this encounter Care Teams Mobile Electronics Installer Relationship Specialty Start Date End Date Amanda Siegel MD [address] [place] [address] PCP - General 08/04/09 12/25/12 documented as of this encounter
--- OUTSIDE RECORDS SUMMARY | 2024-05-16 14:03 | XMS_ITS | Encounter Summary ---
Author Organization [facility] Address [address] [place] [address] Care Team Providers Care Water Quality Assistant Name Role Phone Amanda Siegel MD Primary Care Provider [phone] Reason for Referral * Radiology Services (Routine) - Closed Specialty Diagnoses / Procedures Referred By Mari t Referred To Contact Diagnoses S/P CERTIFIED ORTHOTIST shunt Procedures CT HEAD Ben Jama MD Phone: tel: fax: Referral ID Status Reason Start Date Expiration Date Visits Re quested Visits Authorized [id number] Closed 03/18/2010 1 1 * Consult (Routine) - Closed Specialty Diagnoses / Procedures Referred By Mari t Referred To Contact Diagnoses Unspecified hereditary and idiopathic peripheral neuropathy Ben Jama MD Phone: tel: fax: Maldonado Mcnally MD [address] [place] [address], Level 2 [place] [address] Phone: tel: fax: Referral ID Status Reason Start Date Expiration Date V isits Requested Visits Authorized [id number] Closed Specialty Services Required 03/18/2010 1 1 Question Answer Reason for Request: peripheral neuropathy Comments Has painful LE neuropathy, FELDER in [facility] but pt feels that not enough being done. Please consult about FELDER and tx recommendations. See note of Mar 2010. * Consult (Routine) - Closed Specialty Diagnoses / Procedures Referred By Contac t Referred To Contact Diagnoses S/P CERTIFIED ORTHOTIST shunt Ben Jama MD Phone: tel: fax: Дмитрий Mccartney MD [address] [place] [address] [address] Phone: tel: fax: Referral ID Status Reason Start Date Expiration Date V isits Requested Visits Authorized [id number] Closed Specialty Services Required 03/18/2010 1 1 Question Answer Reason for Request: CERTIFIED ORTHOTIST shunt and Dandy Walker, but episodic numbness for several months, involving the head, usually brief, daily; ? seizure disorder Comments Please see my office note of Mar 2010 Reason for Visit * Reason Comments Headache Encounter Details Date Type Department Care Team (Late st Contact Info) Description 03/18/2010 11:15 EST Office Visit [facility] Neurosurgery - [address] [address] Ben Jama MD [address] [place] [address], [address] [address] S/P CERTIFIED ORTHOTIST shunt (Primary Dx); Unspecified hereditary and idiopathic [...] been seen in the emergency room in [facility] several times, mostly without CT [...] a neurologic workup by a neurologist in [facility]. It would seem that a [...] MD 03/19/2010 12:25 Ben Jama MD Professor [facility] Division of Neurological Surgery - Ben Jama MD - Job ID: SM Doc ID: [id number] Ext Doc ID: [id number] cc: Amanda Siegel MD * Ben Jama MD - 03/18/2010 1158 EST SUBJECTIVE: Radha Moya returns to the [...] been seen in the emergency room in [facility] several times, mostly without CT [...] a neurologic workup by a neurologist in [facility]. It would seem that a [...] r Schedule CT HEAD Imaging Routine S/P CERTIFIED ORTHOTIST Shunt Ordered: 03/18/2010 Scheduled Referrals Name Type Priority Associated Diagnoses Orde r Schedule AMB CONSULT NEUROLOGY Outpatient Referral Routine S/P CERTIFIED ORTHOTIST Shunt Ordered: 03/18/2010 AMB CONSULT NEUROLOGY Outpatient Referral Routine Unspecified Hereditary and Idiopathic Peripheral Neuropathy Ordered: 03/18/2010 documented as of this encounter Visit Diagnoses Diagnosis S/P CERTIFIED ORTHOTIST shunt- Primary Presence of cerebrospinal fluid drainage [...] 03/18/2010 added in this encounter Care Teams Water Quality Assistant Relationship Specialty Start Date End Date Amanda Siegel MD [address] [place] [address] PCP - General 08/04/09 12/25/12 documented as of this encounter
--- OUTSIDE RECORDS SUMMARY | 2024-05-16 14:03 | XMS_ITS | Encounter Summary ---
Author Organization [facility] Address [address] [place] [address] Care Team Providers Care Wellness Rn Name Role Phone Rain Scott NP Primary Care Provider [phone] Reason for Visit * Reason Onset Date Comments Results 01/12/2013 Encounter Details Date Type Department Care Team (Late st Contact Info) Description 01/12/2013 Telephone [facility]surgery - [facility] [address] [place], [place] [phone] Luisa Fontanez PA-C 111 [facility] [address] [place] [address] Results Social History Tobacco Use [...] Telephone Encounter - Jennifer Ramey - 01/12/2013 4574 EDT Spoke with Radha and informed her (per Luisa) that her head CT done at [facility] was stable and that most likely her headaches were caused by something other than her shunt not functioning properly. documented in this encounter Plan of Treatment Not on file documented as of this encounter Visit Diagnoses Not on filedocumented in this encounter Care Teams Wellness Rn Relationship Specialty Start Date End Date Rain Scott NP [address] [place] [address] [address] [place] [address] PCP - General 12/26/12 11/28/13 documented as of this encounter
--- OUTSIDE RECORDS SUMMARY | 2024-05-16 14:03 | XMS_ITS | Encounter Summary ---
Author Organization [facility] Address [address] [place] [address] Care Team Providers Care Hot Roll Inspector Name Role Phone Vivek Ohara Primary Care Provider [phone] Reason for Visit * Reason Onset Date Comments Appointment Related 05/17/2017 Encounter Details Date Type Department Care Team (Late st Contact Info) Description 05/17/2017 Telephone [facility] Neurosurgery - [facility] [address] [place], [place] [phone] Ben Jama MD [address] [facility], [address] [place] [address] Appointment Related Social History Tobacco [...] * Telephone Encounter - Lisa Gustafson - 05/17/2017 1243 EST Called patient and offered her an appointment tomorrow at 10:[address] Jama, however, she statesshe is unable to make tomorrow and asked what we had next week. She has been scheduled an appointment for 05/25 at 2:45. * Telephone Encounter - Kajal Callahan - 05/17/2017 1236 EST Radha calling again to schedule. She states that she is in severe pain and her shunt might not be working. Typing Office Worker advised her that she should seek evaluation in ED if that is the case. Patient declined, stating she has already done that. Well how much longer is it going to take? I have been in pain for 1 week and I don't need to be inpain for another week. * Telephone Encounter - Kajal Callahan - 05/17/2017 1046 EST According to patient, ED physician spoke directly to Dr. Jama regarding her. She is calling to schedule appointment. documented in this encounter Plan of Treatment Not on file documented as of this encounter Visit Diagnoses Not on filedocumented in this encounter Care Teams Hot Roll Inspector Relationship Specialty Start Date End Date Vivek Ohara DO PCP - General 11/29/13 06/09/17 documented as of this encounter
--- OUTSIDE RECORDS SUMMARY | 2024-05-16 14:03 | XMS_ITS | Encounter Summary ---
Author Organization [facility] Address [address] [place] [address] Care Team Providers Care Lock Tender Name Role Phone Amanda Siegel MD Primary Care Provider [phone] Rain Scott NP Primary Care Provider [phone] Vivek Ohara DO Primary Care Provider [phone] Ma[place] Ware DO Primary Care Provider [phone] Encounter Details Date Type Department Care Team (Late st Contact Info) Description 08/18/2010 Orders Only [facility] Neurology - [place] [address] [place] [address] Maldonado Mcnally MD [address] [place] [address], [address] [place] [address] Social History Tobacco Use Types [...] on filedocumented in this encounter Care Teams Lock Tender Relationship Specialty Start Date End Date Amanda Siegel MD [address] [place] [address] PCP - General 08/04/09 12/25/12 Rain Scott NP [address] [place] [address] [address] [place] [address] PCP - General 12/26/12 11/28/13 Vivek Ohara DO [address] [place] [address] [address] [place] [address] PCP - General 11/29/13 06/09/17 Maury Ware DO [address] [place] [address] PCP - General 06/10/17 documented as of this encounter
--- OUTSIDE RECORDS SUMMARY | 2024-05-16 14:03 | XMS_ITS | Encounter Summary ---
Author Organization [facility] Address [address] [place] [address] Care Team Providers Care Senior Energy Analyst Name Role Phone Amanda Siegel MD Primary Care Provider [phone] Encounter Details Date Type Department Care Team (Late st Contact Info) Description 03/19/2010 Orders Only [facility] Neurosurgery - [address] [address] Ben Jama MD [address] [facility], [address] [place] [phone] Congenital hydrocephalus (HCC-CMS) (Primary Dx) Social History [...] hydrocephalus documented in this encounter Care Teams Senior Energy Analyst Relationship Specialty Start Date End Date Amanda Siegel MD [address] [place] [address] PCP - General 08/04/09 12/25/12 documented as of this encounter
--- OUTSIDE RECORDS SUMMARY | 2024-05-16 14:03 | XMS_ITS | Encounter Summary ---
Author Organization [facility] Address [address] [place] [address] Care Team Providers Care Theater Technician Name Role Phone Amanda Siegel MD Primary Care Provider [phone] Reason for Visit * Reason Onset Date Comments Tingling 04/07/2010 Encounter Details Date Type Department Care Team (Late st Contact Info) Description 04/07/2010 Telephone [facility] Adult Primary Care - [address] [address] Maria Elena Plunkett RN Tingling [...] Encounter - Luisa Mckay PA - 04/08/2010 [address] head [address] with Dr Jama [...] on filedocumented in this encounter Care Teams Theater Technician Relationship Specialty Start Date End Date Amanda Siegel MD [address] [place] [address] PCP - General 08/04/09 12/25/12 documented as of this encounter
--- OUTSIDE RECORDS SUMMARY | 2024-05-16 14:03 | XMS_ITS | Encounter Summary ---
Author Organization [facility] Address [address] [place] [address] Care Team Providers Care Supervisor Livestock Yard Name Role Phone Maury Ware Primary Care Provider [phone] Reason for Referral * Radiology Services (Routine) - New Request Specialty Diagnoses / Procedures Referred By Mari perez Referred To Contact Diagnoses Hydrocephalus (HCC-CMS) Dandy Walker malformation (HCC-CMS) S/P SWITCHBOARD OPERATOR SUPERVISOR shunt Procedures SHUNT SERIES Luisa Fontanez PA-C Phone: tel: fax: Referral ID Status Reason Start Date Expiration Date V isits Requested Visits Authorized [id number] New Request 06/13/2017 1 1 Reason for Visit * Reason Comments New Patient Visit shunt malfunction Encounter Details Date Type Department Care Team (Late st Contact Info) Description 06/13/2017 13:00 EST Office Visit [facility] Neurosurgery - [facility] [address] [place], [place] [address] Luisa Fontanez PA-C [address] [place] [address] [address] 4 [place] [phone] Hydrocephalus (HCC-CMS) (Primary Dx); Dandy Walker malformation (CMS-HCC) (HCC-CMS); S/P SWITCHBOARD OPERATOR SUPERVISOR shunt Discharge Disposition: Auto Discharge Social History [...] her scalp but this is not constant. Radha denies nausea, vomiting, lethargy, gait/balance disturbances. Vision is normal. She is back atwork but at times feels overwhelmed with situations and conversations. O/ BP 124/72 Pulse 76 Resp 16 Alert and oriented Head normocephalic, atraumatic Shunt valve nontender Trinity easily depressed Distal tubing palpable from valve to clavicle Shunt interrogated; setting of 1.[address] reveals stable ventricles and known Dandy Walker malformation. Images from May 2017 arestable in comparison to images from 2013 and 2008. Shunt series reveals stable catheter tubing and verifies shunt setting of 1.0. A/ Headaches in the setting of SWITCHBOARD OPERATOR SUPERVISOR shunt, now resolved. Radha is no longer [...] total of 30 minutes was spent in cqgc-en-ljfa time of which 20 minutes were spent in counseling and coordination of care as described above, including discussion of treatment options regarding this serious medical problem. documented in this encounter Plan of Treatment Not on file documented as of this encounter Procedures Procedure Name Priority Date/Time Associated Diagnosis Comments SHUNT SERIES Routine 06/13/2017 14:26 EST Hydrocephalus (HCC-CMS) Dandy Walker malformation (CMS-HCC) (HCC-CMS) S/P SWITCHBOARD OPERATOR SUPERVISOR shunt documented in this encounter Results * SHUNT SERIES (06/13/2017 14:26 EST) Anatomical Region Laterality Modality Other 06/13/2017 14:2 6 EST 06/13/2017 16:39 EST Narrative 06/13/2017 16:39 EST SHUNT SERIES ??06/13/2017 2:26 PM Clinical History/Comments: G91.9-Hydrocephalus, vmwueyjmdjo-NHL-53 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 Technique: PA [...] Dandy Walker malformation (HCC-CMS) Congenital hydrocephalus S/P SWITCHBOARD OPERATOR SUPERVISOR shunt Presence of cerebrospinal fluid drainage device [...] Pain. added in this encounter Care Teams Supervisor Livestock Yard Relationship Specialty Start Date End Date Maury Ware DO [address] [place] [address] PCP - General 06/10/17 documented as of this encounter
--- OUTSIDE RECORDS SUMMARY | 2024-05-16 14:03 | XMS_ITS | Encounter Summary ---
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[facility]) Procedures CT HEAD Luisa Fontanez PA-C Phone: tel: fax: Referral ID Status Reason Start Date Expiration Date Visits Re quested Visits Authorized [id number] Closed 12/27/2012 1 1 * Radiology Services (Routine/Next Available) - Closed Specialty Diagnoses / Procedures Referred By Mari perez Referred To Contact Diagnoses 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[facility]) Procedures SHUNT SERIES Luisa Fontanez PA-C Phone: tel: fax: Referral ID Status Reason Start Date Expiration Date Visits Re quested Visits Authorized [id number] Closed 12/27/2012 1 1 Reason for Visit * Reason Comments Follow-up H/A, urinary frequen cy Encounter Details Date Type Department Care Team (Latest Contact Info) Description 12/27/2012 11:15 EDT Office Visit [facility] Neurosurgery - [place] [address] [place] [address] Luisa Fontanez PA-C 111 [facility] [place], [address] [place] [phone] 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Primary Dx); Status post ventriculoperitoneal [...] for disconnection A/ Dandy Walker malformation s/p METAL MOULDER shunt, now with two weeks of headache [...] documented in this encounter Procedure Notes * TOW TRUCK OPERATOR, SCAN 2 - 01/24/2013 6147 EDTAssociated Order(s): ORDERS - SCANNED documented in [...] EDT Narrative 01/25/2013 11:42 EDT Procedure Note TOW TRUCK OPERATOR, SCAN 2 - 01/24/2013 14:47 EDT us Scan 2 Maintenance Painter Apprentice ADMISSION ORDERABLES Final Result * SHUNT SERIES (12/27/2012 11:57 EDT) Anatomical Region Laterality Modality Other 12/27/2012 11:5 7 EDT 12/27/2012 13:52 EDT Narrative 12/27/2012 13:52 EDT SHUNT SERIES ??12/27/2012 11:57 AM Signs and Symptoms/Comments: ??331.3-Communicating jsiuuajlpazjn-UVZ-3-CM; headache, evp of products & co founder shunt Comparison study sep 18 2009. AP [...] 12/27/2012 11:57 AM Signs and Symptoms/Comments: 331.3-Communicating axiakgipyzfnf-TXJ-3-CM; headache, evp of products & co founder shunt Comparison study sep 18 2009. AP [...] daily. added in this encounter Care Teams Seed Pelleter Relationship Specialty Start Date End Date Rain Scott NP [address] [place] [address] [address] [place] [address] PCP - General 12/26/12 11/28/13 documented as of this encounter
--- OUTSIDE RECORDS SUMMARY | 2024-05-16 14:03 | XMS_ITS | Encounter Summary ---
Author Organization [facility] Address [address] [place] [address] Care Team Providers Care Carburizer Name Role Phone LevVivek hassan DO Primary Care Provider [phone] Reason for Visit * Reason Onset Date Comments Results 12/12/[address] scan done in [place] Encounter Details Date Type Department Care Team (Late st Contact Info) Description 12/12/2013 Telephone [facility] Neurosurgery - [facility] [address] [place], [place] [phone] Luisa Fontanez PA-C 111 [facility] [place], [address] [place] [address] Results (Today's CT scan done in [place]) Social History Tobacco Use Types Packs/Day Years [...] Encounter - Chantelle Rico RN - 12/12/2013 7602 EDT Spoke to Radiology over at [facility] [place] [facility] and they will push the film over to our Prism system now regarding the Head CT scan. Patient aware that she will most likely get a call tomorrow regarding the results after reviewed byBARRY Hoff or Dr. Jama. * Telephone Encounter - Janeth Looney - 12/12/2013 1526 EDT Pt asking for the results of her CT scan which was done this morning at [facility] [place] [facility]. Please call to discuss. documented in this encounter Plan of Treatment Not on file documented as of this encounter Visit Diagnoses Not on filedocumented in this encounter Care Teams Carburizer Relationship Specialty Start Date End Date Vivek Ohara DO PCP - General 11/29/13 06/09/17 documented as of this encounter
--- OUTSIDE RECORDS SUMMARY | 2024-05-16 14:03 | XMS_ITS | Encounter Summary ---
Author Organization [facility] Address [address] [place] [address] Care Team Providers Care Dehydration Plant Operator Name Role Phone Rain Scott NP Primary Care Provider Encounter Details Date Type Department Care Team (Late st Contact Info) Description 12/27/2012 11:21 EDT - 12/27/2012 23:59 EDT Hospital Encounter [facility] [address] [place] [address] Luisa Fontanez PA-C 111 [facility] [address] [place] [phone] Discharge Disposition: Auto Discharge Social History Tobacco [...] on filedocumented in this encounter Care Teams Dehydration Plant Operator Relationship Specialty Start Date End Date Rain Scott NP [address] [place] [address] [address] [place] [address] PCP - General 12/26/12 11/28/13 documented as of this encounter
--- OUTSIDE RECORDS SUMMARY | 2024-05-16 14:03 | XMS_ITS | Encounter Summary ---
Author Organization [facility] Address [address] [place] [address] Care Team Providers Care Asbestos Handler Name Role Phone Amanda Siegel MD Primary Care Provider Encounter Details Date Type Department Care Team (Late st Contact Info) Description 04/10/2012 Results Only [facility] Laboratory Services - [facility] ([facility] [address] [place] [phone] Kelechi Ponce MD [address] [place] [address] Social History Tobacco Use Types Packs/Day Years [...] ? RADHA CARRILLO ? Accession #: ? [id number] ? : ? 1980 (Age: 31) ??F ? Collect Date: ? 04/10/2012 ? Location: ? [facility] ? Receive Date: ? 04/10/2012 ? Provider: KELECHI PONCE MD Copy to: [facility] [employer] ? Final Pathologic Diagnosis: A. ?Stomach, antrum, [...] Gross Description: ? Received in formalin labelled Nathrop, Radha and gastric antrum are two pink-mariscal irregular soft tissues, 0.4 x 0.2 x 0.2 cm and 0.4 x 0.3 x 0.2 cm. Submitted in toto as (A). Received in formalin labelled Nathrop, Radha and esophagus 35 cm are four pink-mariscal and mariscal-white irregular soft tissues ranging from 0.3 x 0.3 x 0.1 cm to 0.7 x 0.3 x 0.1 cm. ??Submitted in toto as (B1) and (B2). ??(Carlton Julio)/subhash End of Report [facility] 04/10/2012 04/10/2012 21: 25 EST us Kelechi Ponce MD PATHOLOGY ORDERABLES Final Result Performing Organization Address City/State/[facility] Co de Phone Number [facility] [address] [place] [address] documented in this encounter Visit Diagnoses Not on filedocumented in this encounter Care Teams Asbestos Handler Relationship Specialty Start Date End Date Amanda Siegel MD [address] [place] [address] PCP - General 08/04/09 12/25/12 documented as of this encounter
--- OUTSIDE RECORDS SUMMARY | 2024-05-16 14:03 | XMS_ITS | Encounter Summary ---
Author Organization [facility] Address [address] [place] [address] Care Team Providers Care Inspector Poising Name Role Phone Amanda Siegel MD Primary Care Provider [phone] Reason for Referral * Consult (Routine) - Closed Specialty Diagnoses / Procedures Referred By Mari perez Referred To Contact Neurology Diagnoses Migraine, unspecified, with intractable migraine, so stated, without mention of status migrainosus Maldonado Mcnally MD Phone: tel: fax: Gianluca Strong MD PhD [address] [place] [phone] Phone: tel: fax: Referral ID Status Reason Start Date Expiration Date V isits Requested Visits Authorized [id number] Closed Specialty Services Required 07/01/2010 1 1 Question Answer Reason for Request: Intractable migraines Reason for Visit * Reason Comments Numbness Feet, legs and head Encounter Details Date Type Department Care Team (Late st Contact Info) Description 07/01/2010 13:00 EST Office Visit [facility] Neurology - [address] [address] Maldonado Mcnally MD [address] [place] [phone] Numbness and tingling (Primary Dx); Migraine [...] Notes * Maldonado Mcnally MD - 07/23/2010 0955 EDT NEUROLOGY HEALTH CARE SERVICE CONSULTATION - 07/01/2010 PROBLEM 2: Numbness and pain in feet. 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 Dr Amanda Siegel of [place], [place] is her family physician. She attended [...] She was evaluated by a neurologist in [facility] by the name of Dr Dalton [...] HISTORY: Asthma since 2008. 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, revision of APARTMENT RENTAL CLERK shunt at age 1, a second revision of APARTMENT RENTAL CLERK shunt because of malfunction in 11/2009 and [...] MD - RF Job ID: Doc ID: [id number] Ext Doc ID: [id number] cc: MD Ben Grey MD documented in [...] ORDERABLES Final Resu lt Performing Organization Address [facility] de Phone Number [facility] [address] [place] [address] * HEMOGLOBIN A1C (07/01/2010 14:14 EST) Hemoglobin [...] GAS ORDERABLES Final Result Performing Organization Address [facility] de Phone Number [facility] [address] [place] [address] * T4 FREE (07/01/2010 14:14 EST) Free T4 1.2 0.8 - 1.8 ng/dL [facility] Blood specimen (specimen) 07/01/2010 14:14 EST 07/01/2010 14:16 EST Maldonado Mcnally MD CHEMISTRY & BLOOD GAS ORDERABLES Final Result Performing Organization Address [facility] Co de Phone Number [facility] [address] [place] [address] * TSH (07/01/2010 14:14 EST) Pathologist [facility] TSH 1.57 0.35 - 5.00 uIU/ml [facility] Blood specimen (specimen) 07/01/2010 14:14 EST 07/01/2010 14:16 EST Maldonado Mcnally MD CHEMISTRY & BLOOD GAS ORDERABLES Final Result Performing Organization Address [facility] Phone Number [facility] [address] [place] [address] * (ABNORMAL) COMPREHENSIVE METABOLIC PANEL (CMP) (07/01/2010 14:14 EST) Pathologist [facility] Potassium 4.2 3.5 - 5.0 mEq/L [facility] [...] ORDERABLES Final Result [facility] [address] [place] [address] * HEMAGRAM AND DIFFERENTIAL (07/01/2010 14:14 EST) [...] PROBE ORDERABLES Final Result [facility] [address] [place] [address] * GLIADIN ANTIBODY, EVALUATION (07/01/2010 14:14 EST) Gliadin IgA Ab 2.4Unit: U -- REFERENCE VALUE -- ? <20.0 (Negative) ? 20.0-30.0 (Weak Positive) ? >30.0 (Positive) ? [facility] Gliadin IgG Ab <1.0Unit: U -- REFERENCE VALUE -- ? <20.0 (Negative) ? 20.0-30.0 (Weak Positive) ? >30.0 (Positive) ? Performed or Referred by: [facility] Dpt of Lab Med and Path, [address] ? [place] [address], Lab Dir: Carson Juarez III, ? MD ? [facility] Blood specimen (specimen) 07/01/2010 14:14 EST 07/01/2010 14:16 EST us Maldonado Mcnally MD IMMUNOLOGY AND SEROLOGY ORDERABL ES Final Result [facility] [address] [place] [address] * C-REACTIVE PROTEIN (07/01/2010 14:14 EST) C-Reactive Protein 0.7 <1.0 mg/dl [facility] Blood specimen (specimen) 07/01/2010 14:14 EST 07/01/2010 14:16 EST us Maldonado Mcnally MD CHEMISTRY & BLOOD GAS ORDERABLES Final Result Performing Organization Address [facility] Co de Phone Number [facility] [address] [place] [address] * SED. RATE:WESTERGREN (07/01/2010 14:14 EST) Pathologist [facility] Sed. Rate Westergren 8 0 - 20 mm/hr [facility] Blood specimen (specimen) 07/01/2010 14:14 EST 07/01/2010 14:16 EST Maldonado Mcnally MD HEMATOLOGY & PF4 ORDERABLES Shaista l Result Performing Organization Address [facility] de Phone Number [facility] [address] [place] [address] * VITAMIN B6 (07/01/2010 14:14 EST) Pathologist [facility] Pyridoxal 5 Phosphate 20Reference range: 5 to 50 Unit: mcg/L Performed or Referred by: [facility] Dpt of Lab Med and Path, [address] ?? [place] [address], Lab Dir: MD [facility] Blood specimen (specimen) 07/01/2010 14:14 EST 07/01/2010 14:16 EST us Maldonado Mcnally MD CHEMISTRY & BLOOD GAS ORDERABLES Final Result Performing Organization Address [facility] de Phone Number [facility] [address] [place] [address] * VITAMIN B1, THIAMINE (07/01/2010 14:14 EST) Pathologist [facility] Thiamine 89Reference range: 80 to 150 Unit: nmol/L Performed or Referred by: [facility] Dpt of Lab Med and Path, [address] ?? [place] [address], Lab Dir: MD [facility] Blood specimen (specimen) 07/01/2010 14:14 EST 07/01/2010 14:16 EST us Maldonado Mcnally MD CHEMISTRY & BLOOD GAS ORDERABLES Final Result Performing Organization Address [facility] de Phone Number [facility] [address] [place] [address] * VITAMIN B12 (07/01/2010 14:14 EST) Vitamin B-12 533 211 - 911 pg/ml [facility] Blood specimen (specimen) 07/01/2010 14:14 EST 07/01/2010 14:16 EST us Maldonado Mcnally MD CHEMISTRY & BLOOD GAS ORDERABLES Final Result Performing Organization Address [facility] de Phone Number [facility] [address] [place] [address] * FOLATE (07/01/2010 14:14 EST) Pathologist [facility] Folate 21.6 ng/mL [facility] Comment: Deficient: ??Less than 3.4 ng/mL Indeterminate: ??3.4-5.4 ng/mL Normal: ??Greater than 5.4 ng/mL Blood specimen (specimen) 07/01/2010 14:14 EST 07/01/2010 14:16 EST us Maldonado Mcnally MD CHEMISTRY & BLOOD GAS ORDERABLES Final Result Performing Organization Address [facility] de Phone Number [facility] [address] [place] [address] * LYME AB (07/01/2010 14:14 EST) Lyme AB Interpretation : Negative Reference Range: Negative [facility] Blood specimen (specimen) 07/01/2010 14:14 EST 07/01/2010 14:16 EST us Maldonado Mcnally MD IMMUNOLOGY AND SEROLOGY ORDERABL ES Final Result Performing Organization Address [facility] de Phone Number [facility] [address] [place] [address] * (ABNORMAL) IMMUNOGLOBULINS (07/01/2010 14:14 EST) Pathologist [facility] IgG 894 751 - 1560 mg/dl [facility] IgA 110 82 - 453 mg/dl [facility] IgM 369(H) 46 - 304 mg/dl [facility] Blood specimen (specimen) 07/01/2010 14:14 EST 07/01/2010 14:16 EST Maldonado Mcnally MD CHEMISTRY & BLOOD GAS ORDERABLES Final Result Performing Organization Address [facility]/ZIP Co de Phone Number [facility] [address] [place] [address] * IMMUNOFIXATION/SPEP (07/01/2010 14:14 EST) Pathologist [facility] Total Protein 7.5 6.5 - 8.3 g/dl [...] . See Pathology Scanned Report in [facility] Immunofixatio n,serum Interpretation: Negative for monoclonal immunoglobulins . Interpreted by: Corona Pinedo MD, PhD Reference Range: Negative for monoclonal immunoglobulins . [facility] Blood specimen (specimen) 07/01/2010 14:14 EST 07/01/2010 14:16 EST Maldonado Mcnally MD CHEMISTRY & BLOOD GAS ORDERABLES Final Result Performing Organization Address [facility]/ZIP Co de Phone Number [facility] [address] [place] [address] * ANGIOTENSIN CONVERTING ENZYME (GAMALIEL) (07/01/2010 14:14 EST) Angiotensin Converting Enzyme 47Reference range: 8 to 53 Unit: U/L The use of angiotensin converting enzyme (GAMALIEL)-inhibitin g ? antihypertensiv e drugs will cause decreased GAMALIEL values. ? Performed or Referred by: [facility] Dpt of Lab Med and Path, [address] ? [place] [address], Lab Dir: Carson Juarez III, ? MD ? [facility] Blood specimen (specimen) 07/01/2010 14:14 EST 07/01/2010 14:16 EST us Maldonado Mcnally MD CHEMISTRY & BLOOD GAS ORDERABLES Final Result Performing Organization Address City/State/[facility] Co de Phone Number [facility] [address] [place] [address] documented in this encounter Visit Diagnoses Diagnosis Numbness and tingling- Primary Disturbance of skin sensation Migraine, unspecified, with intractable migraine, so stated, without mention of status migrainosus documented in this encounter Historical Medications * This list may reflect changes made after this encounter. Multivitamins with Minerals Tab Take 1 Tab by mouth daily. 12/27/2012 added in this encounter Care Teams Inspector Poising Relationship Specialty Start Date End Date Amanda Siegel MD [address] [place] [address] PCP - General 08/04/09 12/25/12 documented as of this encounter
--- OUTSIDE RECORDS SUMMARY | 2024-05-16 14:03 | XMS_ITS | Encounter Summary ---
Author Organization [facility] Address [address] [place] [address] Care Team Providers Care Picking Crew Supervisor Name Role Phone Vivek Ohara Primary Care Provider [phone] Reason for Visit * Reason Onset Date Comments Appointment Related 05/24/2017 Encounter Details Date Type Department Care Team (Late st Contact Info) Description 05/24/2017 Telephone [facility] Neurosurgery - [address] [phone] Ben Jama MD 111 [facility], [address] [place] [address] Appointment Related Social History Tobacco [...] on filedocumented in this encounter Care Teams Picking Crew Supervisor Relationship Specialty Start Date End Date Vivek Ohara DO PCP - General 11/29/13 06/09/17 documented as of this encounter
--- OUTSIDE RECORDS SUMMARY | 2024-05-16 14:03 | XMS_ITS | Encounter Summary ---
Author Organization [facility] Address [address] [place] [address] Care Team Providers Care Tribal Judge Name Role Phone Vivek Ohara Primary Care Provider [phone] Reason for Visit * Reason Onset Date Comments Appointment Related 05/24/2017 Encounter Details Date Type Department Care Team (Late st Contact Info) Description 05/24/2017 Telephone [facility] Neurosurgery - [facility] [address] [place], [place] [phone] Ben Jama MD 111 [facility], [address] [place] [address] Appointment Related Social History Tobacco [...] on filedocumented in this encounter Care Teams Tribal Judge Relationship Specialty Start Date End Date Vivek Ohara DO PCP - General 11/29/13 06/09/17 documented as of this encounter
--- OUTSIDE RECORDS SUMMARY | 2024-05-16 14:03 | XMS_ITS | Encounter Summary ---
Author Organization [facility] Address [address] [place] [address] Care Team Providers Care Logistics Lead Name Role Phone Rain Scott NP Primary Care Provider [phone] Reason for Visit * Reason Onset Date Comments Appointment Related 11/23/2013 follow up fr om ER visit 11/13 Headache 11/26/2013 3 out of 10 Shunt 11/26/2013 Encounter Details Date Type Department Care Team (Late st Contact Info) Description 11/23/2013 Telephone [facility] Neurosurgery - [address] [address] Ben Jama MD 111 [facility], Level 5 [place] [address] Appointment Related (follow up from [...] states she was seen at ER in [place] on 11/13 for migraine. States migraine has still not gone away, would like to schedule appt with Dr. Jama. Please call. documented in this encounter Plan of Treatment Not on file documented as of this encounter Visit Diagnoses Not on filedocumented in this encounter Care Teams Logistics Lead Relationship Specialty Start Date End Date Rain Scott NP [address] [place] [address] [address] [place] [address] PCP - General 12/26/12 11/28/13 documented as of this encounter
--- OUTSIDE RECORDS SUMMARY | 2024-05-16 14:03 | XMS_ITS | Encounter Summary ---
Author Organization [facility] Address [address] [place] [address] Care Team Providers Care Glass Robot Operator Name Role Phone Amanda Siegel MD Primary Care Provider [phone] Reason for Visit * Reason Onset Date Comments Shunt 12/18/2012 Encounter Details Date Type Department Care Team (Late st Contact Info) Description 12/18/2012 Telephone [facility] Neurosurgery - [address] [id number] Ben Jama MD 111 [facility], Level 5 [place] [address] Shunt Social History Tobacco Use [...] Patient was evaluated at local ED in [facility] for headache complaint and seeing colors. [...] weeks. Phone kept cutting out during conversation. Engineering Inspection Assistant will discuss with Luisa Mckay. She was [...] on filedocumented in this encounter Care Teams Glass Robot Operator Relationship Specialty Start Date End Date Amanda Siegel MD [address] [place] [address] PCP - General 08/04/09 12/25/12 documented as of this encounter
--- OUTSIDE RECORDS SUMMARY | 2024-05-16 14:03 | XMS_ITS | Encounter Summary ---
Author Organization [facility] Address [address] [place] [address] Care Team Providers Care Rotary Furnace Operator Name Role Phone Amanda Sieegl MD Primary Care Provider [phone] Reason for Visit * Reason Onset Date Comments Peripheral Neuropathy 08/09/2010 worsening neuropathy on Keppra 500 mg Encounter Details Date Type Department Care Team (Late st Contact Info) Description 08/09/2010 Telephone [facility] Adult Neurology - [facility] [address] [place], [place] [id number] Madan Dewey M [address] [place] [address] Peripheral Neuropathy (worsening neuropathy on Keppra 500 [...] Telephone Encounter - Madan Dewey - 08/09/2010 0515 EDT Ms. Moya called 08/09 and would like a call from Dr. Mcnally with regard to her neuropathy. She wasinstructed to increase Keppra from 500 mg to 750 mg bid. documented in this encounter Plan of Treatment Not on file documented as of this encounter Visit Diagnoses Not on filedocumented in this encounter Care Teams Rotary Furnace Operator Relationship Specialty Start Date End Date Amanda Siegel MD [address] [facility] [place] [address] PCP - General 08/04/09 12/25/12 documented as of this encounter
--- OUTSIDE RECORDS SUMMARY | 2024-05-16 14:03 | XMS_ITS | Encounter Summary ---
Author Organization [facility] Address [address] [place] [address] Care Team Providers Care Pediatric Nurse Practitioner Name Role Phone Amanda Siegel MD Primary Care Provider [phone] Reason for Visit * Reason Onset Date Comments Neurologic Problem 08/03/2010 pt called shoes salesperson Doc last michelle to pain in legs and couldn't walk. She is taking Kempr and wants to know and was told to two in the am and two in the pm. She wants to know if DR. Mcnally wants her to stay on this dose and if so, she will need more meds called in. Encounter Details Date Type Department Care Team (Late st Contact Info) Description 08/03/2010 Telephone [facility] Neurology - [address] [address] Maldonado Mcnally MD [address] [place] [address], Level 2 [place] [address] Neurologic Problem (pt called shoes salesperson Doc last michelle to pain in legs and couldn't walk. She is taking Kempr and wants to know and was told to two in the am and two in the pm. She wants to know if DR. Mcnally wants her to stay on this dose and if so, she will need more meds called in.) Social History Tobacco Use Types Packs/Day Years [...] Date levetiracetam (KEPPRA) 500 mg tablet Take 1 Tab by mouth 2 times daily. NEW TABLET DOSING 60 Tab 3 08/06/2010 08/12/2010 documented in this encounter Miscellaneous Notes * Telephone Encounter - Maldonado Mcnally MD - 08/06/2010 1350 EDT Rik, JAMIE to increase Keppra to 500 mg two times a day. RT * Telephone Encounter - Rik Ward RN - 08/03/[address] Mcnally---pt called to state that she spoke to ? Dr. Blanchard (shoes salesperson last evening ) regarding increased pain in her legs and was told to increase her Keppra from 250mg BID to 500mg BID-------wouldyou verify this please-Pt will need an updated Rx to the pharmacy which I can do after you verify the med increase- --rik documented in this encounter Plan of Treatment Not on file documented as of this encounter Visit Diagnoses Not on filedocumented in this encounter Care Teams Pediatric Nurse Practitioner Relationship Specialty Start Date End Date Amanda Siegel MD [address] [place] [address] PCP - General 08/04/09 12/25/12 documented as of this encounter
--- OUTSIDE RECORDS SUMMARY | 2024-05-16 14:03 | XMS_ITS | Encounter Summary ---
Author Organization [facility] Address [address] [place] [address] Care Team Providers Care Analytical Manager Name Role Phone Vivek Ohara DO Primary Care Provider [phone] Reason for Visit * Reason Onset Date Comments Appointment Related 06/09/2017 Encounter Details Date Type Department Care Team (Late st Contact Info) Description 06/09/2017 Telephone [facility] Neurosurgery - [address] [phone] Ben Jama MD 111 [facility], Level [address] [place] [address] Appointment Related Social History Tobacco [...] on filedocumented in this encounter Care Teams Analytical Manager Relationship Specialty Start Date End Date Vivek Ohara DO PCP - General 11/29/13 06/09/17 documented as of this encounter
--- OUTSIDE RECORDS SUMMARY | 2024-05-16 14:03 | XMS_ITS | Encounter Summary ---
Author Organization [facility] Address [address] [place] [address] Care Team Providers Care Honing Machine Operator Tool Name Role Phone Amanda Siegel MD Primary Care Provider [phone] Rain Scott NP Primary Care Provider [phone] Vivek Ohara DO Primary Care Provider [phone] Maury Ware DO Primary Care Provider [phone] Reason for Visit * Reason Comments Other We asked her to have her pcp contact us. That office asked Dr. Mcnally to call the PCP instead Encounter Details Date Type Department Care Team (Late st Contact Info) Description 10/07/2010 Telephone [facility] Neurology - [address] [address] Maldonado Mcnally MD [address] [place] [address], [address] [place] [address] Other (We asked her to [...] on filedocumented in this encounter Care Teams Honing Machine Operator Tool Relationship Specialty Start Date End Date Amanda Siegel MD [address] [place] [address] PCP - General 08/04/09 12/25/12 Rain Scott NP [address] [place] [address] [address] [place] [address] PCP - General 12/26/12 11/28/13 Vivek Ohara DO [address] [facility] [address] [place] [phone] PCP - General 11/29/13 06/09/17 Maury Ware DO [address] [place] [address] PCP - General 06/10/17 documented as of this encounter
--- OUTSIDE RECORDS SUMMARY | 2024-05-16 14:03 | XMS_ITS | Encounter Summary ---
Author Organization [facility] Address [address] [place] [address] Care Team Providers Care Catering Coordinator Name Role Phone Amanda Siegel MD Primary Care Provider [phone] Encounter Details Date Type Department Care Team (Late st Contact Info) Description 04/09/2010 Results Only [facility] Neurosurgery - [address] [address] Ben Jama MD 111 [facility], Level [address] [place] [phone] Social History Tobacco Use Types Packs/Day Years [...] on filedocumented in this encounter Care Teams Catering Coordinator Relationship Specialty Start Date End Date Amanda Siegel MD [address] [place] [address] PCP - General 08/04/09 12/25/12 documented as of this encounter
--- OUTSIDE RECORDS SUMMARY | 2024-05-16 14:03 | XMS_ITS | Encounter Summary ---
Author Organization [facility] Address [address] [place] [address] Care Team Providers Care Assembler Wet Wash Name Role Phone Vivek Ohara DO Primary Care Provider [phone] Reason for Visit * Reason Onset Date Comments Appointment Related 05/25/2017 Pateint need s to cancel and reschedule her appt. for omorrow with Dr. Jama Encounter Details Date Type Department Care Team (Late st Contact Info) Description 05/25/2017 Telephone [facility] Neurosurgery - [facility] [address] [place], [place] [phone] Ben Jama MD 111 [facility], [address] [place] [address] Appointment Related (Pateint needs to [...] on filedocumented in this encounter Care Teams Assembler Wet Wash Relationship Specialty Start Date End Date Vivek Ohara DO PCP - General 11/29/13 06/09/17 documented as of this encounter
--- OUTSIDE RECORDS SUMMARY | 2024-05-16 14:04 | XMS_ITS | Encounter Summary ---
Author Organization [facility] Address [address] [place] [address] Care Team Providers Care Company Pilot Name Role Phone Nimisha Padilla MD Primary Care Provider [phone] Reason for Visit * Reason Comments Headache x 1 week -increasing since Tuesday. + shunt. States her gait now feels off balance. To see Neuro due to elevated cerebral pressures per transferring facility. 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 Encounter Details Date Type Department Care Team (Late st Contact Info) Description 11/30/2008 20:20 EDT - 12/02/2008 12:13 EDT Hospital Encounter [facility] Neurosurgery Unit [address] [place] [address] John Garcia MD Penar, Paul L, MD 111 [facility] [address] [place] [phone] Discharge Disposition: Home or Self Care Social [...] since been revised. [facility] baseline headaches which had become [...] After hours, there is always a doctor water reclamation systems operator for emergencies or go to your local hospital emergency department. Call our office at or for an appointment or if any problems such as signs of infection or above symptoms. [facility] Patient Instructions Ventriculoperitoneal Shunt Surgery: What to Expect at Home Your Recovery Ventriculoperitoneal shunt surgery (WASHROOM CLEANER shunt surgery) helps control pressure in your brain by draining extra fluid out of your brain and into your belly. During WASHROOM CLEANER shunt surgery, the doctor placed two small [...] your doctor if you can take an rbya-bzs-wjyjxkx medicine. Do not take two or more [...] Where can you learn more? Go to www.[employer].net/fahc Enter V872 in the search box to learn more about Ventriculoperitoneal Shunt Surgery: What to Expect at Home. ?? 2005 - 2008 [employer]. Care instructions adapted under license by [facility], [facility] . This care instruction is for use with your licensed healthcare professional. If you have questions about a medical condition or this instruction, always ask your healthcare professional. [employer] disclaims any warranty or liability for your [...] control --Adv diet --Monitor neuro status Mylene 1455 * Emerald Costa, WILLIAM - 12/01/2008 1440 [...] Surgeon: Wiley Assist: Mylene Whitt To pacu [place] 3057 * Jaya Dickens MD - 12/01/2008 0501 EDT Neurosurgery Progress Note Chief Complaint: Headache [...] AM * Christy Lockhart RN - 12/01/2008 2161 EDT No multi-disciplinary problems found Data: Pt arrived from ED with c/o 5/10 headache that has been persistent for days. Action: Tylenol and 5 mg oxycodone given. Response: Pt resting comfortably and is able to rest. Will continue to monitor and medicate when necessary. Christy Lockhart RN 12/01/2008 5:05 AM documented in this encounter H&P Notes * Kirill Boucher MD - 11/30/2008 6869 EDT History & Physical: Blue Surgery HPI: 28 y.o.female with hydrocephalus and shunt placed shortly after now presents with worsening headaches over the past several weeks. General surgery is consulted for placement of abdominal end of revised WASHROOM CLEANER shunt. Pt states that she has baseline [...] QID PRN albuterol 2 Puff TID PRN bpsyywadcj-ctdcachnkjfxl-ylzdwhpu 1 Tab Daily PRN promethazine 12.5 mg [...] a 28 y.o. female who presents for WASHROOM CLEANER shunt revision by neurosurgery. Hemodynamically stable and [...] note. * Ben Jama MD - 11/30/2008 1743 EDT Neurosurgery H&P CC: Headaches HPI:28 Year [...] mouth 2 times daily. Yes Historical Provider, ckwijilodc-ryrlfwuimxaiw-iwbxxhzi (FIORICET, ESGIC) 50-325-40 mg per tablet Take [...] ventricles. Headache worsened over days, presented to [facility] ER where CT showed enlarged ventricles. BECKWITH [...] SERVICE DATE: 12/01/2008 SURGEON: Ben Jama MD COAL CONVEYOR OPERATOR: Jos Whitt MD, Kristal Chakraborty MD PREOPERATIVE [...] FLUIDS SPECIMENS COMPLICATIONS Ben Jama MD Professor [facility] Division of Neurological Surgery - Ben Jama MD A - mt Job ID: [id number] Document ID: [id number] cc: MD Kristal Miller MD Susan S Labarthe, MD Paul R Newton, MD documented in this encounter ED Notes * Mariajose Hanks, WILLIAM - 11/30/2008 2214 EDT Pt transported to [place] [address] via w/c by transport team * Mariajose Hanks RN - 11/30/2008 2156 EDT Report called to [place] [address] nurse * Mariajose Hanks RN - 11/30/20082021 [...] ? CORDELIA CARRILLO ? Accession #: ? [id number] ? : ? 1980 (Age: 28) ??F [...] Final Res ult [facility] [address] [place] [address] * ECG REPORT - SCANNED (12/09/2008 11:46 [...] 12/01/2008 7:23 EDT 12/01/2008 7:29 EDT Result [facility] Jos Whitt MD HEMATOLOGY & PF4 ORDERABLES Fin al Result Performing Organization Address City/State/[facility] Co de Phone Number [facility] [address] [place] [address] * PROTIME (12/01/2008 7:23 EDT) Pro Time [...] ORDERABLES Fin al Result Performing Organization Address [facility] Co de Phone Number [facility] [address] [place] [address] * PREPARE RED BLOOD CELLS (12/01/2008 3:13 EDT) [facility] Product Code -3 RED BLOOD CELLS,ADENINE- SALINE ADDED,LEUKOCYT ES REDUCED [facility] Donor Number [id number] [facility] Unit ABO B [facility] Rh NEG [facility] Cross Match Interp Compatible [facility] Unit Status Released From Crossmatch [facility] 12/01/2008 3:13 EDT 12/01/2008 3:13 EDT Jaya Dickens MD BLOOD BANK ORDERABLES Final Re sult Performing Organization Address [facility] Co de Phone Number [facility] [address] [place] [address] * ANTIBODY IDENTIFICATION (12/01/2008 1:49 EDT) [facility] AB Identification Possibility of a specific antibody not excuded [facility] 12/01/2008 1:49 EDT 12/01/2008 1:49 EDT Jaya Dickens MD BLOOD BANK TESTS Final Result Performing Organization Address [facility] Co de Phone Number [facility] [address] [place] [address] * (ABNORMAL) HEMAGRAM AND DIFFERENTIAL (11/30/2008 23:37 EDT) [facility] WBC 9.76 4.0 - 12.4 K/cmm [facility] [...] ORDERABLE S Final Result Performing Organization Address [facility] Co de Phone Number [facility] [address] [place] [address] * CREATININE (11/30/2008 23:37 EDT) Creatinine 0.90 0.7 - 1.5 mg/dl [facility] GFR, Calculated >60 ml/min/1.7 3m2 [facility] Blood specimen (specimen) 11/30/2008 23:37 EDT 11/30/2008 23:56 EDT us Jaya Dickens MD CHEMISTRY & BLOOD GAS ORDERABL ES Final Result Performing Organization Address [facility] Co de Phone Number [facility] [address] [place] [address] * BUN (11/30/2008 23:37 EDT) BUN 14 10 - 26 mg/dl [facility] Blood specimen (specimen) 11/30/2008 23:37 EDT 11/30/2008 23:56 EDT Jaya Dickens MD CHEMISTRY & BLOOD GAS ORDERABL ES Final Result Performing Organization Address [facility] de Phone Number [facility] [address] [place] [address] * ELECTROLYTES (11/30/2008 23:37 EDT) Sodium 140 [...] ORDERABL ES Final Result Performing Organization Address [facility] de Phone Number [facility] [address] [place] [address] * TYPE AND SCREEN (11/30/2008 22:43 EDT) ABO B [facility] Rh Factor Negative [facility] Antibody Screen Positive [facility] Comment:SAMPLE EXPIRES 12/04 AT 23.59 Blood specimen (specimen) 11/30/2008 22:43 EDT 11/30/2008 22:43 EDT Jaya Dickens MD BLOOD BANK TESTS Final Result Performing Organization Address [facility] de Phone Number [facility] [address] [place] [address] * CT HEAD WO CONTRAST (11/30/2008 20:38 [...] possibility of shunt malfunction. Jaya Dickens MD [facility] CT ORDERABLES Final Result * ELECTROLYTES (11/30/2008 [...] ORDERABL ES Final Result Performing Organization Address [facility] de Phone Number [facility] [address] [place] [address] * BUN (11/30/2008 18:10 EDT) [facility] BUN 14 10 - 26 mg/dl [facility] Blood specimen (specimen) 11/30/2008 18:10 EDT 11/30/2008 18:15 EDT Jaya Dickens MD CHEMISTRY & BLOOD GAS ORDERABL ES Final Result Performing Organization Address [facility] de Phone Number [facility] [address] [place] [address] * CREATININE (11/30/2008 18:10 EDT) [facility] Creatinine 0.73 0.7 - 1.5 mg/dl [facility] GFR, Calculated >60 ml/min/1.7 3m2 [facility] Blood specimen (specimen) 11/30/2008 18:10 EDT 11/30/2008 18:15 EDT Jaya Dickens MD CHEMISTRY & BLOOD GAS ORDERABL ES Final Result Performing Organization Address [facility] de Phone Number [facility] [address] [place] [address] * SED. RATE:WESTERGREN (11/30/2008 18:10 EDT) [facility] Sed. Rate Westergren Duplicate Test Request 0 - 20 mm/hr [facility] Blood specimen (specimen) 11/30/2008 18:10 EDT 11/30/2008 18:15 EDT Jaya Dickens MD HEMATOLOGY & PF4 ORDERABLES Fi nal Result Performing Organization Address [facility] de Phone Number [facility] [address] [place] [address] * C-REACTIVE PROTEIN (11/30/2008 18:10 EDT) Pathologist [facility] C-Reactive Protein <0.7 <1.0 mg/dl [facility] Blood specimen (specimen) 11/30/2008 18:10 EDT 11/30/2008 18:15 EDT Jaya Dickens MD CHEMISTRY & BLOOD GAS ORDERABL ES Final Result Performing Organization Address [facility] de Phone Number [facility] [address] [place] [address] * SED. RATE:ANALIERGREN (11/30/2008 18:05 EDT) Pathologist [facility] Sed. Rate Westergren 6 0 - 20 mm/hr [facility] 11/30/2008 18:0 5 EDT 11/30/2008 18:18 EDT Jaya Dickens MD HEMATOLOGY & PF4 ORDERABLES Fi nal Result Performing Organization Address [facility] de Phone Number [facility] [address] [place] [address] * HEMAGRAM AND DIFFERENTIAL (11/30/2008 18:05 EDT) [facility] WBC 9.54 4.0 - 12.4 K/cmm [facility] [...] ORDERABLE S Final Result Performing Organization Address City/State/[facility] Co de Phone Number [facility] [address] [place] [address] * SHUNT SERIES (11/30/2008 17:53 EDT) Anatomical Region Laterality Modality Other 11/30/2008 17:5 3 EDT 11/30/2008 19:26 EDT Narrative 11/30/2008 19:26 EDT SHUNT SERIES ??Nov 30, 2008 5:53:00 PM Signs and Symptoms/Comments: ??HEADACHE - Shunt in place Comparison: January 05, [address] Findings: A shunt series was performed. A WASHROOM CLEANER shunt is seen extending from just left [...] Findings: A shunt series was performed. A WASHROOM CLEANER shunt is seen extending from just left [...] with the findings. us Jaya Dickens MD [facility] DIAGNOSTIC IMAGING ORDERAB LES Final Result * [...] 11/30/2008 bisacodyl (DULCOLAX) suppository 10 mg 1 qfwctrgwor-jymjkgswlkgbx-gux feine (FIORICET, ESGIC) 50-325-40 mg per tablet [...] 11/30/2008 documented in this encounter Care Teams Company Pilot Relationship Specialty Start Date End Date Nimisha Padilla MD [address] [place] [address] PCP - General 11/30/08 01/21/09 documented as of this encounter
--- OUTSIDE RECORDS SUMMARY | 2024-05-16 14:04 | XMS_ITS | Encounter Summary ---
Author Organization [facility] Address [facility] [place] [address] Care Team Providers Care Spinning Operator Name Role Phone Wallace Negron APRN Primary Care Provider [phone] Encounter Details Date Type Department Care Team (Late st Contact Info) Description 07/19/2023 Ancillary Procedure Radiology Library at [facility] [place] [address] Wallace Negron APRN [address] [place] [address] Social History Tobacco Use Types [...] place to sleep or slept in a penitentiary (including now)? No 04/20/2022 Sex and Gender [...] Abdomen Pelvis (07/19/2023 12:00 AM EDT) Narrative [facility] - 07/20/2023 9:37 AM EDT This exam is auto-finalizing. It's purpose is for storage only. Wallace Negron APRN IMG FILM LIBRARY O RDERABLES Performing Organization Address City/State/[facility] Co de Phone Number [place], [place] documented in this encounter Visit Diagnoses Not on filedocumented in this encounter Care Teams Spinning Operator Relationship Specialty Start Date End Date Wallace Negron APRN [address] [place] [address] PCP - General Family Medicine 08/26/21 documented as of this encounter
--- OUTSIDE RECORDS SUMMARY | 2024-05-16 14:04 | XMS_ITS | Encounter Summary ---
Author Organization [facility] Address [facility] [place] [address] Care Team Providers Care Production Supervisor Name Role Phone Wallace Negron ADELFO Primary Care Provider [phone] Encounter Details Date Type Department Care Team (Late st Contact Info) Description 05/18/2023 Telephone Hematology and Oncology at [facility] [place] [phone] TherLucretia de león Social History Tobacco Use Types Packs/Day Years [...] 11:54 AM EST Procedure Prior Authorization Procedure/Cpt: 10132, 03920 Ct c/a/p Rationale: C82.00 Health Plan: [employer] Medicare Authorizing Vendor: RADHA barone via [employer] Service Order/Case ID: Authorization #: [id number] (Abdomen and Pelvis CT) [id number] (Chest CT) [id number] (Neck CT Effective Date: 05/18/2023 - 08/16/2023 Status: Approved Rendering Facility: [facility] documented in this encounter Plan of Treatment Not on file documented as of this encounter Visit Diagnoses Not on filedocumented in this encounter Care Teams Production Supervisor Relationship Specialty Start Date End Date Wallace Negron APRN [address] [place] [address] PCP - General Family Medicine 08/26/21 documented as of this encounter
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
--- OUTSIDE RECORDS SUMMARY | 2024-05-16 14:04 | XMS_ITS | Encounter Summary ---
Author Organization [facility] Address [address] [place] [address] Care Team Providers Care Clinical Dietician Name Role Phone Patrizia Fortune MD Primary Care Provider [phone] Encounter Details Date Type Department Care Team (Late st Contact Info) Description 04/28/2009 Orders Only [facility] Laboratory Services - [facility] ([facility] [address] [place] [id number] Kelechi Ponce MD [address] [place] [id number] Social History Tobacco Use Types Packs/Day Years [...] LORENA, RADHA Adamson ? Accession #: ? [id number] ? : ? 1980 (Age: 28) ??F ? Collect Date: ? 04/28/2009 ? Location: ? [facility] ? Receive Date: ? 04/28/2009 ? Provider: KELECHI PONCE MD ? Copy to: APTRIZIA S GENOVEVA MD ? Final Pathologic Diagnosis: [...] Description: ? Received in Ce's fixative labelled Lorena, Radha and #1 bx ? esophagus 40 [...] ORDERABLES Final Result [facility] [address] [place] [address] documented in this encounter Visit Diagnoses Not on filedocumented in this encounter Care Teams Clinical Dietician Relationship Specialty Start Date End Date Patrizia Fortune MD [address] [place] [address] [place] [address] PCP - General 01/22/09 08/03/09 documented as of this encounter
--- OUTSIDE RECORDS SUMMARY | 2024-05-16 14:04 | XMS_ITS | Encounter Summary ---
Author Organization [facility] Address [address] [place] [address] Care Team Providers Care Certified Indoor Environmentalist Name Role Phone Unavailable Primary Care Provider Unavailabl e Encounter Details Date Type Department Care Team (Late st Contact Info) Description 01/05/2002 9:32 EDT - 01/05/2002 11:59 EDT Hospital Encounter [address] [address] Jareth Ortega MD [address] [facility], [address] [place] [phone] Discharge Disposition: Auto Discharge Social History Tobacco [...]
--- OUTSIDE RECORDS SUMMARY | 2024-05-16 14:04 | XMS_ITS | Encounter Summary ---
Author Organization [facility] Address [address] [place] [address] Care Team Providers Care Store Director Name Role Phone Kirk Siegel MD Primary Care Provider [phone] Reason for Visit * Reason Comments Medical Evaluation Has cellulitis to ab d near [employer] SUPERVISOR shunt. Redness area spreading Encounter Details Date Type Department Care Team (Late st Contact Info) Description 08/04/2009 14:31 EDT - 08/04/2009 18:15 EDT Emergency [facility] Emergency Department - [facility] [address] [place], [place] [id number] Vivek Lizarraga MD [address] [facility], [address] [place] [address] Emergency, MD Adenike Cellulitis of [...] as prescribed in addition to the clindamycin. [facility] Patient Instructions Cellulitis: After Your Visit to [...] Where can you learn more? Go to [email or web address] Enter E813 in the search box to learn more about Cellulitis: After Your Visit to the Emergency Room. ?? 2005 - 2008 [employer]. Care instructions adapted under license by [facility], [facility] . This care instruction is for use with your licensed healthcare professional. If you have questions about a medical condition or this instruction, always ask your healthcare professional. [employer] disclaims any warranty or liability for your [...] Medical Evaluation Has cellulitis to abd near [employer] SUPERVISOR shunt. Redness area spreading The patient is [...] abdomen adjacent to old healed incision from [employer] SUPERVISOR shunt placement. The pain is mild. The pain has been constant since onset. Associated symptoms include pain. Treatments Tried: s tarted Cipro yesterday after seen at [facility] ED, but redness worsening. Review of Systems [...] Increased HAs ??? Rofecoxib ??? Macrobid (Nitrofurantoin (Rtpbuckmnh92%)) Itching History Substance Use Topics ??? Tobacco [...] healed incision for shunt placement. Records from [facility] 08/03/09 CT abdomen reveals inflammatory changes in [...] KAREEN Final Result [facility] [address] [place] [address] * HEMAGRAM AND DIFFERENTIAL (08/04/2009 16:03 EDT) [...] BLES Final Result [facility] [address] [place] [address] documented in this encounter Visit Diagnoses Diagnosis [...] 08/04/2009 documented in this encounter Care Teams Store Director Relationship Specialty Start Date End Date Kirk Siegel MD [address] [place] [address] PCP - General 08/04/09 12/25/12 documented as of this encounter
--- OUTSIDE RECORDS SUMMARY | 2024-05-16 14:04 | XMS_ITS | Encounter Summary ---
Author Organization [facility] Address [address] [place] [address] Care Team Providers Care Basket Braider Name Role Phone Nimisha Padilla MD Primary Care Provider [phone] Reason for Visit * Reason Comments Headache two day history of H A. Associated with nausea.Recently had DIGITAL CAMPAIGN SPECIALIST shunt revised (December 02) Encounter Details Date Type Department Care Team (Late st Contact Info) Description 12/31/2008 23:30 EDT - 01/03/2009 14:00 EDT Hospital Encounter [facility] Neurosurgery Unit [address] [place], [place] [address] Gianluca Brar MD 111 [facility] 1 [place] [address] Jareth Ortega MD [address] [address] Headache; S/P DIGITAL CAMPAIGN SPECIALIST Shunt Discharge Disposition: Home or Self Care [...] Chief Complaint/Reason for Admission: Headache and possible DIGITAL CAMPAIGN SPECIALIST shunt malfunction Principal/Final Diagnosis: DIGITAL CAMPAIGN SPECIALIST Shunt malfunction Principal Procedure: Proximal shunt revision [...] After hours, there is always a doctor communications intern for emergencies or go to your local [...] Ambulate as tolerated - Adv Diet Mylene 6027 Attestation statement: I saw and examined the [...] of CM. Pt adm for headaches, needs DIGITAL CAMPAIGN SPECIALIST shuntrevision in O.R. Today. She lives w/ her , who is blind, in [facility]. She is independent w/ ADL's and driving; [...] Start Date End Date Taking? Authorizing Provider inphmtfiipwvh-lswogfyhiffcl-mqqvggpjusijzgcktx (MIDRIN) 325-65-100 mg per capsule Take 1 [...] by mouth 2 times daily. Historical Provider, xjgnhyoapb-mhsnukpqquhoa-ranfwybn (FIORICET, ESGIC) 50-325-40 mg per tablet Take [...] Shunt Tap Procedure Note Service Date: 01/01/2009 Act English Tutor(s): Dr. Ortega Career Technical Education Instructor(s): Dr. Campbell Preprocedure diagnosis: headache Postprocedure diagnosis: [...] SERVICE DATE: 01/02/2009 SURGEON: Ben Jama MD CYTOGENETIC TECHNOLOGIST: Jos Whitt MD PREOPERATIVE DIAGNOSIS: Ventriculoperitoneal shunt [...] ESTIMATED BLOOD LOSS: FLUIDS: SPECIMENS: COMPLICATIONS: Ben Jama MD Professor [facility] Division of Neurological Surgery - Ben Jama MD P - [facility] Job ID: [id number] Document ID: [id number] cc: Nimisha Padilla MD documented in this encounter ED Notes * Janae Coburn - 12/31/20082233 EDT PT'S MOM'S PHONE- [phone] * Janae Coburn - 12/31/20082228 EDT Pain [...] history of BECKWITH. Associated with nausea.Recently had DIGITAL CAMPAIGN SPECIALIST shunt revised (December 02) Patient is a [...] Increased HAs ??? Rofecoxib ??? Macrobid (Nitrofurantoin ([id number]%)) Itching History Substance Use Topics ??? Tobacco [...] Qualifier ??? 784.0 Headache ??? V45.89TL S/P DIGITAL CAMPAIGN SPECIALIST Shunt PCP: SEYMOUR LEZAMASW 01/07/2009 9:21 PM [...] PROBE ORDERABLES Final Result Performing Organization Address City/[facility] Co de Phone Number [facility] [address] [place] [address] * (ABNORMAL) CREATININE (01/03/2009 6:42 EDT) Creatinine 0.65(L) 0.7 - 1.5 mg/dl [facility] GFR, Calculated >60 ml/min/1.7 3m2 [facility] Blood specimen (specimen) 01/03/2009 6:42 EDT 01/03/2009 7:15 EDT Jos Whitt MD CHEMISTRY & BLOOD GAS ORDERABLE S Final Result Performing Organization Address City/State/[facility] Co de Phone Number [facility] [address] [place] [address] * BUN (01/03/2009 6:42 EDT) [facility] BUN 11 10 - 26 mg/dl [facility] Blood specimen (specimen) 01/03/2009 6:42 EDT 01/03/2009 7:15 EDT Jos Whitt MD CHEMISTRY & BLOOD GAS ORDERABLE S Final Result Performing Organization Address [facility] de Phone Number [facility] [address] [place] [address] * ELECTROLYTES (01/03/2009 6:42 EDT) [facility] Sodium 139 136 - 145 mEq/L [facility] Potassium 4.3 3.5 - 5.0 mEq/L [facility] Chloride 106 96 - 110 mEq/L [facility] CO2 27 24 - 32 mEq/L [facility] Blood specimen (specimen) 01/03/2009 6:42 EDT 01/03/2009 7:15 EDT Jos Whitt MD CHEMISTRY & BLOOD GAS ORDERABLE S Final Result Performing Organization Address [facility] de Phone Number [facility] [address] [place] [address] * PTT (01/02/2009 9:44 EDT) [facility] PTT 27 20 - 35 secs [facility] Comment: Therapeutic Heparin range: ?? 60-100 seconds Moderate hemolysis Blood specimen (specimen) 01/02/2009 9:44 EDT 01/02/2009 10:11 EDT Vivek Campbell MD HEMATOLOGY & PF4 ORDERABLES F inal Result Performing Organization Address [facility] Co de Phone Number [facility] [address] [place] [address] * PROTIME (01/02/2009 9:44 EDT) Pro Time [...] PF4 ORDERABLES F inal Result [facility] [address] [place] [address] * (ABNORMAL) HEMAGRAM AND DIFFERENTIAL (01/02/2009 7:10 EDT) Pathologist [facility] WBC 6.22 4.0 - 12.4 K/cmm [facility] RBC 4.16 3.86 - 5.04 M/cmm [facility] Hemoglobin 12.5 11.6 - 15.2 gm/dl [facility] HCT 37.2 34.9 - 44.4 % [facility] MCV 89 81 - 98 fl [facility] MCH 30.0 26.7 - 33.3 pg [facility] MCHC 33.6 32.1 - 35.9 [...] ORDERABLE S Final Result Performing Organization Address [facility] de Phone Number [facility] [address] [place] [address] * CREATININE (01/02/2009 7:10 EDT) Pathologist [facility] Creatinine 0.73 0.7 - 1.5 mg/dl [facility] GFR, Calculated >60 ml/min/1.7 3m2 [facility] Blood specimen (specimen) 01/02/2009 7:10 EDT 01/02/2009 7:16 EDT Jaya Dickens MD CHEMISTRY & BLOOD GAS ORDERABL ES Final Result Performing Organization Address [facility] de Phone Number [facility] [address] [place] [address] * (ABNORMAL) BUN (01/02/2009 7:10 EDT) BUN 9(L) 10 - 26 mg/dl [facility] Blood specimen (specimen) 01/02/2009 7:10 EDT 01/02/2009 7:16 EDT Jaya Dickens MD CHEMISTRY & BLOOD GAS ORDERABL ES Final Result Performing Organization Address [facility] de Phone Number [facility] [address] [place] [address] * ELECTROLYTES (01/02/2009 7:10 EDT) Sodium 139 [...] ORDERABL ES Final Result Performing Organization Address City/[facility]/ZIP Co de Phone Number [facility] [address] [place] [address] * (ABNORMAL) URINE MICROSCOPIC (01/01/2009 15:59 EDT) [...] ORDERABLES Final Re sult Performing Organization Address City/[facility]/ZIP Co de Phone Number [facility] [address] [place] [address] * CULTURE IF UA POSITIVE (01/01/2009 15:59 EDT) Culture if Indicated Culture not indicated by urinalysis results. [facility] Urine specimen (specimen) 01/01/2009 15:59 EDT 01/01/2009 16:29 EDT Jaya Dickens MD MICROBIOLOGY - GENERAL ORDERAB LES Final Result Performing Organization Address City/[facility]/ZIP Co de Phone Number [facility] [address] [place] [address] * (ABNORMAL) URINALYSIS, CHEMICAL (01/01/2009 15:59 EDT) Color, UA Yellow [facility] Clarity, UA Clear [facility] Glucose, UA Neg NEG [facility] Bilirubin, UA Neg NEG [facility] Ketones, UA Neg NEG [facility] Specific [place], Urine 1.010 1.001 - 1.03 [facility] [...] URINALYSIS ORDERABLES Final Re sult [facility] [address] [place] [address] * NM CSF SHUNT EVALUATION (01/01/2009 12:44 [...] with the findings. us Jaya Dickens MD [facility] ORDERABLES Final Result * CT ABDOMEN, [...] of the abdomen without contrast demonstrates two DIGITAL CAMPAIGN SPECIALIST shunts. The patient's older shunt travels through [...] of the abdomen without contrast demonstrates two DIGITAL CAMPAIGN SPECIALIST shunts. The patient's older shunt travels through [...] LAB MCHC 34.0 32.1 - 35.9 gm/dl [facility] PLT 233 141 - 320 K/cmm [facility] RDW-CV 13.3 11.7 - 14.6 % [facility] Neutrophils 47.3 45.5 - 79.7 % [facility] Lymphocytes 38.2 15.0 - 46.8 % [facility] Monocytes 10.9 1.8 - 12.0 % [facility] Eosinophils 3.2 0.6 - 6.9 % [facility] Basophils 0.4 0.2 - 1.4 % [facility] ABS Neutrophils 3.86 2.20 - 8.85 K/cmm [facility] ABS Lymphs 3.12 1.09 - 3.30 K/cmm [facility] ABS Monocytes 0.89(H) 0.1 - 0.8 K/cmm [facility] ABS Eosinophils 0.26 0.03 - 0.61 K/cmm [facility] ABS Basophils 0.04 0.01 - 0.11 K/cmm [facility] Type of Diff: Automated [facility] Blood specimen (specimen) 01/01/2009 6:15 EDT 01/01/2009 7:05 EDT us Jaya Dickens MD PACKAGES & DNA PROBE ORDERABLE S Final Result [facility] [address] [place] [address] * CREATININE (01/01/2009 6:15 EDT) Pathologist [facility] Creatinine 0.86 0.7 - 1.5 mg/dl [facility] GFR, Calculated >60 ml/min/1.7 3m2 [facility] Blood specimen (specimen) 01/01/2009 6:15 EDT 01/01/2009 7:05 EDT Jaya Dickens MD CHEMISTRY & BLOOD GAS ORDERABL ES Final Result Performing Organization Address [facility] de Phone Number [facility] [address] [place] [address] * BUN (01/01/2009 6:15 EDT) BUN 13 10 - 26 mg/dl [facility] Blood specimen (specimen) 01/01/2009 6:15 EDT 01/01/2009 7:05 EDT Jaya Dickens MD CHEMISTRY & BLOOD GAS ORDERABL ES Final Result Performing Organization Address [facility] de Phone Number [facility] [address] [place] [address] * ELECTROLYTES (01/01/2009 6:15 EDT) Sodium 139 [...] ORDERABL ES Final Result Performing Organization Address [facility] de Phone Number [facility] [address] [place] [address] * SCREENING GLUCOSE (01/01/2009 2:08 EDT) Glucose, Screening 97 70 - 100 mg/dl [facility] Blood specimen (specimen) 01/01/2009 2:08 EDT 01/01/2009 2:19 EDT Jaya Dickens MD CHEMISTRY & BLOOD GAS ORDERABL ES Final Result Performing Organization Address [facility] de Phone Number [facility] [address] [place] [address] * TYPE AND SCREEN (01/01/2009 1:43 EDT) ABO B [facility] Rh Factor Negative [facility] Antibody Screen Negative [facility] Comment:SPECIMEN EXPIRES @ 2 3.59 ON 01-04-09 Blood specimen (specimen) 01/01/2009 1:43 EDT 01/01/2009 1:43 EDT Jaya Dickens MD BLOOD BANK TESTS Final Result Performing Organization Address [facility] de Phone Number [facility] [address] [place] [address] * BACTERIAL CULTURE/SMEAR, FLUID (12/31/2008 21:12 EDT) Pathologist [facility] Specimen Description Other Spinal Fluid 2.5CC [facility] Gram Smear Result No polys seen No mononuclear cells seen. No bacteria seen [facility] Result No growth [facility] Report Status Final 01/05/2009 [facility] Specimen of unknown material (specimen) 12/31/2008 21:12 EDT 12/31/2008 21:21 EDT Jaya Dickens MD MICROBIOLOGY - GENERAL ORDERAB LES Final Result Performing Organization Address [facility] Co de Phone Number [facility] [address] [place] [address] * (ABNORMAL) FLUID DIFFERENTIAL (12/31/2008 21:11 EDT) Neutrophils, CSF 25(H) 0 - 6 % [facility] Lymphocyte, CSF 27(L) 40 - 80 % [facility] Eddy/Macro, CSF 36 15 - 45 % [facility] Eosinophil, CSF 5 % [facility] Other, CSF 7 % [facility] Comment:LINING CELLS Comment Reviewed by Dr. Laverne PARKER 12/31/2008 21:1 1 EDT 12/31/2008 21:16 EDT us Jaya Dickens MD GEN LAB UNIT COLLECT ORDERABLE S Final Result Performing Organization Address [facility] Co de Phone Number [facility] [address] [place] [address] * GLUCOSE CSF (12/31/2008 21:11 EDT) Glucose, CSF 58 mg/dl [facility] Comment: Ref Range=60-80% of plasma glucose result Cerebrospinal fluid (substance) 12/31/2008 21:11 EDT 12/31/2008 21:16 EDT us Jaya Dickens MD GEN LAB UNIT COLLECT ORDERABLE S Final Result Performing Organization Address [facility] Co de Phone Number [facility] [address] [place] [address] * TOTAL PROTEIN, CSF (12/31/2008 21:11 EDT) Total Protein, CSF 16 15 - 60 mg/dl [facility] Cerebrospinal fluid (substance) 12/31/2008 21:11 EDT 12/31/2008 21:16 EDT us Jaya Dickens MD GEN LAB UNIT COLLECT ORDERABLE S Final Result Performing Organization Address [facility] de Phone Number [facility] [address] [place] [address] * (ABNORMAL) CSF CELL COUNT (12/31/2008 21:11 EDT) RBC, CSF 37 /cmm [facility] Comment:Shunt tap Nucleated Cells, CSF 7(H) 0 - 5 /cmm [facility] Comment:Shunt tap Total Vol. 5.0 ml [facility] Comment:Shunt tap Tube Cntd. 4 Shunt tap [facility] Total Vol. 5.0 ml [facility] Comment:Shunt tap Comment Clear and Colorless Shunt tap [facility] Cerebrospinal fluid (substance) 12/31/2008 21:11 EDT 12/31/2008 21:16 EDT us Jaya Dickens MD GEN LAB UNIT COLLECT ORDERABLE S Final Result [facility] [address] [place] [address] * HEMAGRAM AND DIFFERENTIAL (12/31/2008 19:56 EDT) [...] [facility] Type of Diff: Automated [facility] Blood specimen (specimen) 12/31/2008 19:56 EDT 12/31/2008 20:05 EDT us Jaya Dickens MD PACKAGES & DNA PROBE ORDERABLE S Final Result Performing Organization Address [facility] Co de Phone Number [facility] [address] [place] [address] * CREATININE (12/31/2008 19:56 EDT) Creatinine 0.80 0.7 - 1.5 mg/dl [facility] GFR, Calculated >60 ml/min/1.7 3m2 [facility] Blood specimen (specimen) 12/31/2008 19:56 EDT 12/31/2008 20:05 EDT us Jaya Dickens MD CHEMISTRY & BLOOD GAS ORDERABL ES Final Result Performing Organization Address [facility] de Phone Number [facility] [address] [place] [address] * BUN (12/31/2008 19:56 EDT) BUN 12 10 - 26 mg/dl [facility] Blood specimen (specimen) 12/31/2008 19:56 EDT 12/31/2008 20:05 EDT Jaya Dickens MD CHEMISTRY & BLOOD GAS ORDERABL ES Final Result Performing Organization Address [facility] de Phone Number [facility] [address] [place] [address] * ELECTROLYTES (12/31/2008 19:56 EDT) Sodium 141 136 - 145 mEq/L [facility] Potassium 4.1 3.5 - 5.0 mEq/L [facility] Chloride 104 96 - 110 mEq/L [facility] CO2 29 24 - 32 mEq/L [facility] Blood specimen (specimen) 12/31/2008 19:56 EDT 12/31/2008 20:05 EDT us Jaya Dickens MD CHEMISTRY & BLOOD GAS ORDERABL ES Final Result Performing Organization Address [facility] Co de Phone Number [facility] [address] [place] [address] * C-REACTIVE PROTEIN (12/31/2008 19:56 EDT) C-Reactive Protein <0.7 <1.0 mg/dl [facility] Blood specimen (specimen) 12/31/2008 19:56 EDT 12/31/2008 20:05 EDT us Jaya Dickens MD CHEMISTRY & BLOOD GAS ORDERABL ES Final Result [facility] [address] [place] [address] * CT HEAD WO CONTRAST (12/31/2008 18:11 [...] agree with the findings. Gianluca Brar MD IMG CT ORDERABLES Fi nal Result * SHUNT [...] encounter Visit Diagnoses Diagnosis Headache(784.0) Headache S/P DIGITAL CAMPAIGN SPECIALIST shunt Presence of cerebrospinal fluid drainage [...] Reason: NPO)2100 (Given - Provider: Deedee Diego, WILLIAM) 0900 (Given - Provider: Jason Devries) docusate sodium (COLACE) capsule 100 mg (CANCELED) 100 mg, oral, 2 TIMES DAILY, First dose on Tue01/01/09 at 0900, Until Discontinued, STAT 899 (Given - Provider: Jason Devries)2100 (Given - Provider: Diomedes Lane) 09 (Not Given - Provider: Brittany Talbert - Reason: NPO)2100 (Given - Provider: Deedee Diego, RN) 0900 (Given - Provider: Jason Devries) morphine injection 6 mg (COMPLETED) 6 mg, intravenous, NOW X1, 1 dose, On 8/26/09 at 0045, STAT 0045 (Given - Provider: [...] - Reason: NPO)1936 (Given - Provider: Deedee Diego RN - Comment: pt requested now with [...] with dinner.)2099 (Not Given - Provider: Deedee M Diego, RN - Reason: Other - Comment: pt [...] spasms, STAT 0639 (Given - Provider: Diomedes Lane)195 (Given - Provider: Diomedes Lane) morphine injection [...] Nausea, STAT 0230 (Given - Provider: Christy Lockhart RN) 1340 (Given - Provider: Jason Devries) oxycodone [...] 01/01/2009 documented in this encounter Care Teams Basket Braider Relationship Specialty Start Date End Date Nimisha Padilla MD [address] [place] [address] PCP - General 11/30/08 01/21/09 documented as of this encounter
--- OUTSIDE RECORDS SUMMARY | 2024-05-16 14:04 | XMS_ITS | Encounter Summary ---
Author Organization [facility] Address [address] [place] [address] Care Team Providers Care Medical Review Coordinator Name Role Phone Amanda Siegel MD Primary Care Provider [phone] Encounter Details Date Type Department Care Team (Late st Contact Info) Description 02/10/2010 Abstract Used for ABSTRACTING Data [phone] Amanda Siegel MD [address] [place], [place] [id number] Social History Tobacco Use Types Packs/Day Years [...] 12/27/2012 added in this encounter Care Teams Medical Review Coordinator Relationship Specialty Start Date End Date Amanda Siegel MD [address] [place], [place] [address] PCP - General 08/04/09 12/25/12 documented as of this encounter
--- OUTSIDE RECORDS SUMMARY | 2024-05-16 14:04 | XMS_ITS | Encounter Summary ---
Author Organization Count Includes [facility] Address [facility] [place] [address] Care Team Providers Care Insurance Claims Supervisor Name Role Phone MigdaliaWallace ADELFO Primary Care Provider [phone] Reason for Visit * Reason Onset Date Comments Follow-up 05/31/[address] scan done Encounter Details Date Type Department Care Team (Late st Contact Info) Description 05/31/2023 Telephone Hematology/Oncology at [address] [address] Rosy Lee RN Follow-up (No [...] on filedocumented in this encounter Care Teams Insurance Claims Supervisor Relationship Specialty Start Date End Date Wallace Negron APRN [address] [place] [address] PCP - General Family Medicine 08/26/21 documented as of this encounter
--- OUTSIDE RECORDS SUMMARY | 2024-05-16 14:04 | XMS_ITS | Encounter Summary ---
Author Organization [facility] Address [facility] [place] [address] Care Team Providers Care Boiler Repair Supervisor Name Role Phone Wallace Negron ADELFO Primary Care Provider [phone] Reason for Visit * Reason Onset Date Comments Appointment 06/17/[address] C hest/Abd/Pelvis and follow up with Dr. [place] Encounter Details Date Type Department Care Team (Late st Contact Info) Description 06/17/2023 Telephone Administration [facility] [place] [address] Jason Sommers, RN Appointment (CT [...] CT Chest/Abd/Pelvis and follow up with Dr. Monatna, left message for pt to call providers area secretary at [phone] to schedule appointments. documented in this encounter Plan of Treatment Not on file documented as of this encounter Visit Diagnoses Not on filedocumented in this encounter Care Teams Boiler Repair Supervisor Relationship Specialty Start Date End Date Wallace Negron APRN [address] [place] [address] PCP - General Family Medicine 08/26/21 documented as of this encounter
--- OUTSIDE RECORDS SUMMARY | 2024-05-16 14:04 | XMS_ITS | Clinical Summary ---
Author Organization [facility] Address [facility] [place] [address] Care Team Providers Care Tool Grinding Machine Operator Name Role Phone MigdaliaMaryjuanpablo Wilder APRN Primary Care Provider [phone] Allergies Active Allergy Reactions Criticality Noted Date [...] place to sleep or slept in a correction (including now)? No 04/20/2022 Sex and Gender [...] PANEL Routine 10/27/2022 HIV SCREEN, 4TH GENERATION ([facility]D/[facility]) Routine 09/09/2021 12:02 PM EDT HC HEPATITIS [...] C Antibody (09/09/2021 12:02 PM EDT) Pathologist [facility] Hepatitis C Antibody Negative Negative [facility] Blood 09/09/2021 12:0 2 PM EDT 09/09/2021 12:23 PM EDT Narrative Resulting Agency Comment Spec In Lab Sebastian Raymundo MD CHEMISTRY ORDERA BLES Performing Organization Address [facility] Co de Phone Number [facility] [place] [address] * HIV Screen, 4th Generation ([facility]/CGP/APD/NLH) (09/09/2021 12:02 PM EDT) HIV Ab/Ag Screen Negative Negative [facility] Comment: This 4th Generation HIV test [...] HIV Comment Low Risk of HIV Infection [facility] Blood Venous Draw / Unknown 09/09/2021 12:02 PM EDT 09/09/2021 12:27 PM EDT Narrative Resulting Agency Comment Spec In Lab oRsy Rodriguez MD CHEMISTRY ORDERAB LES Performing Organization Address [facility] Co de Phone Number [facility] [place] [address] from Last 3 Months or Most Recently Relevant to Health Maintenance Advance Directives * Attempt Cardiopulmonary Resuscitation - Inpatient (Latest Code Status on File) Date Activated Date Inactivated Comments 08/26/2021 12:42 PM 08/27/2021 4:38 AM Question Answer Comments Code Status decision made by: Patient Care Teams Tool Grinding Machine Operator Relationship Specialty Start Date End Date Wallace Negron, HOP TRAINER [address] [place] [address] PCP - General Family Medicine 08/26/21
--- OUTSIDE RECORDS SUMMARY | 2024-05-16 14:04 | XMS_ITS | Encounter Summary ---
Author Organization [facility] Address [facility] [place] [address] Care Team Providers Care Museum Registrar Name Role Phone Wallace Negron ADELFO Primary Care Provider +1- [phone] Encounter Details Date Type Department Care Team (Late st Contact Info) Description 02/10/2023 Telephone Hematology and Oncology at [facility] [place] [address] Lucretia Grey Social History Tobacco Use Types [...] place to sleep or slept in a long-term (including now)? No 04/20/2022 Sex and Gender Information Value Date Recorded Sex Assigned at Not on file Gender Identity Not on file Sexual Orientation Not on file documented as of this encounter Miscellaneous Notes * Telephone Encounter - Lucretia Chávez - 02/10/2023 2:04 PM EDT Procedure Prior Authorization Procedure/Cpt: 88494, 01288 Ct c/a/p, [address] Ct neck Rationale: C82.00 Health Plan: [employer] Medicare Authorizing Vendor: [employer] Order/Case ID: Authorization #: [id number] (Abdomen and Pelvis CT) [id number] (Chest CT) [id number] (Neck CT) Effective Date: 02/10/2023 - 05/11/2023 Status: Approved Rendering Facility: [facility] documented in this encounter Plan of Treatment Not on file documented as of this encounter Visit Diagnoses Not on filedocumented in this encounter Care Teams Museum Registrar Relationship Specialty Start Date End Date Wallace Negron APRN [address] [place] [address] PCP - General Family Medicine 08/26/21 documented as of this encounter
--- OUTSIDE RECORDS SUMMARY | 2024-05-16 14:04 | XMS_ITS | Encounter Summary ---
Author Organization [facility] Address [address] [place] [address] Care Team Providers Care Yard Hostler Name Role Phone Amanda Siegel MD Primary Care Provider [phone] Vivek Fortune MD Primary Care Provider [phone] Nimisha Padilla MD Primary Care Provider + [phone] Encounter Details Date Type Department Care Team (Late st Contact Info) Description 04/17/2007 Results Only [facility] - Maple conversion [address] [place] [address] Nusrat Rodriguez MD [address] [place] [address] Social History Tobacco Use Types [...] ? RADHA CARRILLO ? Accession #: ? [id number] : ? 1980 (Age: 26) ??F ?Collect Date: ? 04/17/2007 Location: ? [facility] ? Receive Date: ? 04/18/2007 Provider: ?NUSRAT RODRIGUEZ MD Copy to: ? Specimen/Source: ?ThinPrep Pap Test, Endocervix, processed on KupiKuponPrep Imaging System, with manual evaluation Last Menstrual [...] PATHOLOGY ORDERABLES Final Result [facility] [address] [place] [address] documented in this encounter Visit Diagnoses Not on filedocumented in this encounter Care Teams Yard Hostler Relationship Specialty Start Date End Date Amanda Siegel MD [address] [place] [address] [phone] PCP - General 08/04/09 12/25/12 Vivek Fortune MD [address] [place] [address] PCP - General 01/22/09 08/03/09 Nimisha Padilla MD [address] [place] [address] PCP - General 11/30/08 01/21/09 documented as of this encounter
--- OUTSIDE RECORDS SUMMARY | 2024-05-16 14:04 | XMS_ITS | Encounter Summary ---
Author Organization [facility] Address [address] [place] [address] Care Team Providers Care Wood Finisher Apprentice Name Role Phone Kirk Siegel MD Primary Care Provider [phone] Encounter Details Date Type Department Care Team (Late st Contact Info) Description 02/20/2010 Results Only [facility]- [facility] [phone] Crissy Lewis MD [address] [place] [address] Social History Tobacco Use Types Packs/Day Years [...] LORENA, RADHA L ? Accession #: ? [id number] ? : ? 1980 (Age: 29) ??F [...] ORDERABLES Final Resu lt Performing Organization Address City/State/[facility] Co de Phone Number [facility] [address] [place] [address] documented in this encounter Visit Diagnoses Not on filedocumented in this encounter Care Teams Wood Finisher Apprentice Relationship Specialty Start Date End Date Kirk Siegel MD [address] [place] [address] PCP - General 08/04/09 12/25/12 documented as of this encounter
--- OUTSIDE RECORDS SUMMARY | 2024-05-16 14:04 | XMS_ITS | Encounter Summary ---
Author Organization [facility] Address [facility] [place] [address] Care Team Providers Care Coiled Tubing Supervisor Name Role Phone Wallace Negron ADELFO Primary Care Provider [phone]- [phone] Encounter Details Date Type Department Care Team (Late st Contact Info) Description 01/19/2023 Orders Only [place] [address] Asia Polk MD [facility] [address] [place] [address] Follicular lymphoma grade I, unspecified body region [...] place to sleep or slept in a snf (including now)? No 04/20/2022 Sex and Gender Information Value Date Recorded Sex Assigned at Not on file Gender Identity Not on file Sexual Orientation Not on file documented as of this encounter Plan of Treatment Not on file documented as of this encounter Visit Diagnoses Diagnosis Follicular lymphoma grade I, unspecified body region documented in this encounter Care Teams Coiled Tubing Supervisor Relationship Specialty Start Date End Date Wallace Negron APRN [address] [place] [address] PCP - General Family Medicine 08/26/21 documented as of this encounter
--- OUTSIDE RECORDS SUMMARY | 2024-05-16 14:04 | XMS_ITS | Encounter Summary ---
Author Organization [facility] Address [address] [place] [address] Care Team Providers Care Associate Dean Name Role Phone Amanda Siegel MD Primary Care Provider [phone] Encounter Details Date Type Department Care Team (Late st Contact Info) Description 02/09/2010 Results Only [facility] Laboratory Services - [facility] ([facility]) [address] [place], [place] [address] Dina Hussein, [facility] [address] [place] [phone] Social History Tobacco Use Types Packs/Day Years [...] RADHA Juan Diego ? Accession #: ? [id number] ? : ? 1980 (Age: 29) ??F ?Collect Date: ? 02/09/2010 ? Location: ? [facility] ? Receive Date: ? 02/10/2010 ? Provider: ?DINA EMA HAND TUBE BENDER ? Copy to: ? Specimen/Source: ?Pap Test, [...] [facility] LAB 02/09/2010 02/10/2010 us Dina Hussein HAND TUBE BENDER PATHOLOGY ORDERABLES Final R esult [facility] [address] [place] [address] documented in this encounter Visit Diagnoses Not on filedocumented in this encounter Care Teams Associate Dean Relationship Specialty Start Date End Date Amanda Siegel MD [address] [place] [address] PCP - General 08/04/09 12/25/12 documented as of this encounter
--- OUTSIDE RECORDS SUMMARY | 2024-05-16 14:04 | XMS_ITS | Encounter Summary ---
Author Organization [facility] Address [facility] [place] [address] Care Team Providers Care Tube Worker Name Role Phone Wallace Negron ADELFO Primary Care Provider [phone]- [phone] Encounter Details Date Type Department Care Team (Late st Contact Info) Description 01/21/2023 Orders Only Hematology [place] [address] Asia Polk MD [facility] [address] [place] [address] Follicular lymphoma grade I, unspecified body region [...] place to sleep or slept in a half-way (including now)? No 04/20/2022 Sex and Gender Information Value Date Recorded Sex Assigned at Not on file Gender Identity Not on file Sexual Orientation Not on file documented as of this encounter Plan of Treatment Not on file documented as of this encounter Visit Diagnoses Diagnosis Follicular lymphoma grade I, unspecified body region documented in this encounter Care Teams Tube Worker Relationship Specialty Start Date End Date Wallace Negron APRN [address] [place] [address] PCP - General Family Medicine 08/26/21 documented as of this encounter
--- OUTSIDE RECORDS SUMMARY | 2024-05-16 14:04 | XMS_ITS | Encounter Summary ---
Author Organization [facility] Address [facility] [place] [address] Care Team Providers Care Sock Knitting Machine Operator Name Role Phone Wallace Negron ADELFO Primary Care Provider [phone] Reason for Visit * Reason Onset Date Comments Appointment 06/24/2023 CT Neck, CT Ches t/Abd/Pelvis and follow up with Dr. [place] Encounter Details Date Type Department Care Team (Late st Contact Info) Description 06/24/2023 Telephone Administration [facility] [place] [address] Jason Sommers, RN Appointment (CT [...] on filedocumented in this encounter Care Teams Sock Knitting Machine Operator Relationship Specialty Start Date End Date Wallace Negron APRN [address] [place] [address] PCP - General Family Medicine 08/26/21 documented as of this encounter
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
--- OUTSIDE RECORDS SUMMARY | 2024-05-16 14:04 | XMS_ITS | Encounter Summary ---
Author Organization [facility] Address [facility] [place] [address] Care Team Providers Care Geological Specialist Name Role Phone UmbargerWallace strauss ADELFO Primary Care Provider [phone]- [phone] Encounter Details Date Type Department Care Team [...] on filedocumented in this encounter Care Teams Geological Specialist Relationship Specialty Start Date End Date Wallace Negron APRN [address] [place] [address] [address] [place] [address] PCP - General Family Medicine 08/26/21 documented as of this encounter
--- OUTSIDE RECORDS SUMMARY | 2024-05-16 14:04 | XMS_ITS | Encounter Summary ---
Author Organization [facility] Address [address] [place] [address] Care Team Providers Care Welfare Visitor Name Role Phone Unavailable Primary Care Provider Unavailabl e Encounter Details Date Type Department Care Team (Late st Contact Info) Description 11/28/2001 17:44 EDT Hospital Encounter [address] [address] Jareth Ortega MD [address] [place] [address], [facility] [address] [place] [phone] Discharge Disposition: Auto Discharge Social History Tobacco [...] pattern is non-obstructed. /jv Jareth Ortega MD [facility] Final Result * CHEST PA (11/28/2001 15:13 EDT) Anatomical Region Laterality Modality Other 11/28/2001 15:1 3 EDT Narrative 02/19/2009 5:41 EDT UP SHUNT R/O DISCONNECTION Procedure Note Jason Parmar MD - 02/19/2009 UP SHUNT R/O DISCONNECTION Jareth Ortega MD [facility] Final Result * SKULL 1 TO 3 VIEWS (11/28/2001 15:13 EDT) Anatomical Region Laterality Modality Other 11/28/2001 15:1 3 EDT Narrative 02/03/2009 3:27 EDT UP SHUNT R/O DISCONNECTION AP, LATERAL SKULL, 11/28/01, 1455 COMPARISON: None. FINDINGS: These films are just now submitted for interpretation and demonstrate a shunt catheter with a right posterior approach. No discontinuity is seen within the catheter. /[facility] Procedure Note Luan Altman MD / Prerna Elizondo MD - 02/03/2009 UP SHUNT R/O DISCONNECTION AP, LATERAL SKULL, 11/28/01, 1455 COMPARISON: None. FINDINGS: These films are just now submitted for interpretation and demonstrate a shunt catheter with a right posterior approach. No discontinuity is seen within the catheter. /[facility] Jareth Ortega MD [facility]G DIAGNOSTIC IMAGING [facility] Final Result documented in this encounter Visit Diagnoses Not on filedocumented in this encounter
--- OUTSIDE RECORDS SUMMARY | 2024-05-16 14:04 | XMS_ITS | Encounter Summary ---
Author Organization [facility] Address [facility] [place] [address] Care Team Providers Care Service Administrator Name Role Phone Wallace Negron ADELFO Primary Care Provider +1- [phone] Encounter Details Date Type Department Care Team [...] place to sleep or slept in a mcc (including now)? No 04/20/2022 Sex and Gender Information Value Date Recorded Sex Assigned at Not on file Gender Identity Not on file Sexual Orientation Not on file documented as of this encounter Plan of Treatment Not on file documented as of this encounter Visit Diagnoses Not on filedocumented in this encounter Care Teams Service Administrator Relationship Specialty Start Date End Date Wallace Negron APRN [address] [place] [address] [address] [place] [address] PCP - General Family Medicine 08/26/21 documented as of this encounter
--- OUTSIDE RECORDS SUMMARY | 2024-05-16 14:05 | XMS_ITS | Encounter Summary ---
Author Organization [facility] [place] [address] Care Team Providers Care Edge Beader Name Role Phone Wallace Negron APRN Primary Care Provider [phone]- [phone] Encounter Details Date Type Department Care Team (Latest Contact Info) Description 08/26/2021 11:30 AM EDT Laboratory Appointment Lab 3L [facility] [place] [address] Abdominal mass, unspecified abdominal location Social History [...] White Blood Cell 8.0 4.0 - 9.5 x10(3)/[facility] LABORATORY Red Blood Cell 4.64 4.00 - 5.21 x10(6)/[facility] LABORATORY Hemoglobin 13.8 11.7 - 15.5 g/dL [facility] Hematocrit 41.1 35.7 - 45.8 % [facility] Mean Cell Volume 88.6 82.6 - 94.4 fL [facility] Mean Cell Hemoglobin 29.7 27.1 - 32.0 pg [facility] Mean Cell Hemoglobin Concentration 33.6 31.7 - 35.0 g/dL [facility] Platelet 272 145 - 357 x10(3)/[facility] LABORATORY RDW Standard Deviation 40.3 37.0 - 46.0 fL [facility] RDW coefficient of variation 12.4 11.5 - 14.1 % [facility] Mean Platelet Volume 10.7 7.6 - 12.9 fL [facility] NRBC% auto 0.0 % [facility] NRBC Absolute 0.000 0.000 - 0.000 x10(3)/[facility] LABORATORY Blood 08/26/2021 12:0 7 PM EDT 08/26/2021 12:17 PM EDT Narrative Resulting Agency Comment Spec In Lab Wallace Negron APRN HEMATOLOGY ORDERAB LES [facility] [place] [address] documented in this encounter Visit Diagnoses Diagnosis Abdominal mass, unspecified abdominal location documented in this encounter Care Teams Edge Beader Relationship Specialty Start Date End Date Wallace Negron APRN [address] [place] [address] PCP - General Family Medicine 08/26/21 documented as of this encounter
--- OUTSIDE RECORDS SUMMARY | 2024-05-16 14:05 | XMS_ITS | Encounter Summary ---
Author Organization [facility] [place] [address] Care Team Providers Care Bone Char Kiln Tender Name Role Phone Wallace Negron APRN Primary Care Provider [phone]- [phone] Encounter Details Date Type Department Care Team (Late st Contact Info) Description 12/01/2007 Orders Only Lab [facility] [place] [address] Michael Agosto MD DERMATOLOGY Social History Tobacco [...] place to sleep or slept in a assisted (including now)? No 04/20/2022 Sex and Gender [...] (12/01/2007 2:51 PM EDT) Surgical Pathology Report [id number] ? Location: 4M The signing pathologist has [...] 1.0 x 0.3 cm. Tissue Description: ?? [place], granular plaque. Sections/Process ing: ??The specimen is [...] on filedocumented in this encounter Care Teams Bone Char Kiln Tender Relationship Specialty Start Date End Date Wallace Negron APRN [address] [place] [address] PCP - General Family Medicine 08/26/21 documented as of this encounter
--- OUTSIDE RECORDS SUMMARY | 2024-05-16 14:05 | XMS_ITS | Encounter Summary ---
Author Organization [facility] Address [facility] [place] [address] Care Team Providers Care Park Police Name Role Phone Wallace Negron APRN Primary Care Provider +1- [phone] Encounter Details Date Type Department Care Team (Late st Contact Info) Description 09/20/2008 Orders [place] [address] Sae Gee MD [facility] [place] [address] Social History Tobacco Use Types Packs/Day Years [...] 3:57 PM EDT) Surgical Pathology Report [id number] ? Location: 4T The signing pathologist has [...] CR-0 09/23/08 AJE 09/23/08 Verified by: ? Litzy KWOK, Geovany ?Pathologist [...] on filedocumented in this encounter Care Teams Park Police Relationship Specialty Start Date End Date Wallace Negron, ADELFO [address] [place] [address] PCP - General Family Medicine 08/26/21 documented as of this encounter
--- OUTSIDE RECORDS SUMMARY | 2024-05-16 14:05 | XMS_ITS | Encounter Summary ---
Author Organization [facility] Address [facility] [place] [address] Care Team Providers Care Cafeteria Or Lunchroom Checker Name Role Phone ArnotWallace strauss ADELFO Primary Care Provider +1- [phone] Encounter Details Date Type Department Care Team [...] place to sleep or slept in a jail (including now)? No 04/20/2022 Sex and Gender Information Value Date Recorded Sex Assigned at Not on file Gender Identity Not on file Sexual Orientation Not on file documented as of this encounter Plan of Treatment Not on file documented as of this encounter Visit Diagnoses Not on filedocumented in this encounter Care Teams Cafeteria Or Lunchroom Checker Relationship Specialty Start Date End Date Wallace Negron APRN [address] [place] [address] [address] [place] [address] PCP - General Family Medicine 08/26/21 documented as of this encounter
--- OUTSIDE RECORDS SUMMARY | 2024-05-16 14:05 | XMS_ITS | Encounter Summary ---
Author Organization [facility] [place] [address] Care Team Providers Care Mortgage Protection Specialist Name Role Phone Maury Ware DO Primary Care Provider [phone] Encounter Details Date Type Department Care Team (Late st Contact Info) Description 02/09/2017 External [place] [address] Prince De Jesus MD [facility] [place] [address] Social History Tobacco Use Types Packs/Day Years [...] on filedocumented in this encounter Care Teams Mortgage Protection Specialist Relationship Specialty Start Date End Date Maury Ware DO PCP - General General Internal Medicine 02/08/1711/06 documented as of this encounter
--- OUTSIDE RECORDS SUMMARY | 2024-05-16 14:05 | XMS_ITS | Encounter Summary ---
Author Organization [facility] [place] [address] Care Team Providers Care Echo Vasc Tech Name Role Phone Unknown Primary Care Provider Unavailabl e Encounter Details Date Type Department Care Team (Late st Contact Info) Description 06/19/2021 Notes Only [facility] [place] [address] Gianluca Rose MD [address] [place] [address] [address] [place] [address] Social History Tobacco Use Types Packs/Day Years [...] on filedocumented in this encounter Care Teams Echo Vasc Tech Relationship Specialty Start Date End Date Unknown None PCP - General 08/14/20 08/25/21 documented as of this encounter
--- OUTSIDE RECORDS SUMMARY | 2024-05-16 14:05 | XMS_ITS | Encounter Summary ---
Author Organization [facility] Address [facility] [place] [address] Care Team Providers Care Business Strategy Manager Name Role Phone MigdaliaWallace ADELFO Primary Care Provider +1- [phone] Encounter Details Date Type Department Care Team (Latest Contact Info) Description 09/09/2021 11:53 AM EDT - 09/09/2021 11:59 PM EDT Hospital Encounter Hematology [place] [phone] Abdominal mass, unspecified abdominal location Discharge Disposition: [...] unspecified abdominal location HIV SCREEN, 4TH GENERATION ([facility]/CGP/APD/NLH) Routine 09/09/2021 12:02 PM EDT HC HEPATITIS [...] 4th Generation ([facility]/CGP/APD/NLH) (09/09/2021 12:02 PM EDT) [facility] HIV Ab/Ag Screen Negative Negative [facility] Comment: This 4th Generation HIV [...] HIV Comment Low Risk of HIV Infection [facility] Blood Venous Draw / Unknown 09/09/2021 12:02 PM EDT 09/09/2021 12:27 PM EDT Narrative Resulting Agency Comment Spec In Lab Rosy Rodriguez MD CHEMISTRY ORDERAB LES [facility] [place] [address] * Differential, Automated (09/09/2021 12:02 PM EDT) [facility] Neutrophil % 67.0 % [facility] Neutrophil Absolute 5.88 1.70 - 6.10 x10(3)/[facility] Lymph % 21.2 % [facility] Lymphocytes Abs 1.9 0.9 - 3.2 x10(3)/[facility] Monocyte % 8.3 % [facility] Monocyte Abs 0.7 0.3 - 0.9 x10(3)/[facility] Eos % 2.6 % [facility] Eosinophils Abs 0.2 0.0 - 0.4 x10(3)/[facility] Basophil % 0.6 % [facility] Baso Absolute 0.0 0.0 - 0.1 x10(3)/[facility] Immature Gran % 0.30 % [facility] Comment: Immature granulocytes(IG's)percentage and absolute count will include metamyelocytes, myelocytes, and promyelocytes. Blood smears from CBCs yielding IG's will be scanned manually for concordance. If this scan disagrees with the automated IG or if promyelocytes are noted, a manual differential will be performed. Immature Gran Absolute 0.03 0.00 - 0.04 x10(3)/[facility] Blood 09/09/2021 12:0 2 PM EDT 09/09/2021 12:23 PM EDT Narrative Resulting Agency Comment Spec In Lab Rosy Rodriguez MD HEMATOLOGY ORDERA BLES [facility] [place] [address] * Hemogram (09/09/2021 12:02 PM EDT) White Blood Cell 8.8 4.0 - 9.5 x10(3)/[facility] Red Blood Cell 4.69 4.00 - 5.21 x10(6)/[facility] Hemoglobin 14.1 11.7 - 15.5 g/dL [facility] Hematocrit 42.8 35.7 - 45.8 % [facility] Mean Cell Volume 91.3 82.6 - 94.4 fL [facility] Mean Cell Hemoglobin 30.1 27.1 - 32.0 pg [facility] Mean Cell Hemoglobin Concentration 32.9 31.7 - 35.0 g/dL [facility] Platelet 307 145 - 357 x10(3)/[facility] RDW Standard Deviation 40.8 37.0 - 46.0 fL [facility] RDW coefficient of variation 12.3 11.5 - 14.1 % [facility] Mean Platelet Volume 9.9 7.6 - 12.9 fL [facility] NRBC% auto 0.0 % [facility] NRBC Absolute 0.000 0.000 - 0.000 x10(3)/mcL [facility] Blood 09/09/2021 12:0 2 PM EDT 09/09/2021 12:23 PM EDT Narrative Resulting Agency Comment Spec In Lab Rosy Rodriguez MD HEMATOLOGY ORDERA BLES Performing Organization Address [facility]/ZIP Co de Phone Number [facility] [place] [address] * Uric acid (09/09/2021 12:02 PM EDT) Pathologist [facility] Uric Acid 4.2 2.5 - 6.5 mg/dL [facility] Blood 09/09/2021 12:0 2 PM EDT 09/09/2021 12:23 PM EDT Narrative Resulting Agency Comment Spec In Lab Sebastian Raymundo MD CHEMISTRY ORDERA BLES Performing Organization Address [facility] Co de Phone Number [facility] [place] [address] * Protein Electrophoresis, serum (09/09/2021 12:02 PM EDT) Total Prot Electrophoresis 7.0 6.1 - 8.0 g/dL [facility] Albumin Electrophoresis 4.60 3.60 - 6.00 g/dL [facility] Alpha 1 Globulin 0.16 0.10 - 0.30 g/dL [facility] Alpha 2 Globulin 0.74 0.40 - 0.90 g/dL [facility] Beta Globulin 0.81 0.50 - 1.00 g/dL [facility] Gamma Globulin 0.70 0.50 - 1.30 g/dL [facility] M1 Band None Detected None Detected [facility] Blood 09/09/2021 12:0 2 PM EDT 09/09/2021 12:23 PM EDT Narrative Resulting Agency Comment Spec In Lab Sebastian Raymundo MD CHEMISTRY ORDERA BLES Performing Organization Address City/[facility]/ZIP Co de Phone Number [facility] [place] [address] * Free Light Chains, Serum (09/09/2021 12:02 PM EDT) [place] Free Light Chain 1.50 0.72 - 2.75 mg/dL [facility] Lambda Free Light Chain 1.43 0.57 - 2.15 mg/dL [facility] [place]/Lambda FLC Ratio 1.0490 0.4000 - 2.5800 [facility] Blood 09/09/2021 12:0 2 PM EDT 09/09/2021 12:23 PM EDT Narrative Resulting Agency Comment Spec In Lab Sebastian Raymundo MD CHEMISTRY ORDERA BLES Performing Organization Address [facility] Co de Phone Number [facility] [place] [address] * Immunoglobulins, Quantitative (09/09/2021 12:02 PM EDT) Immunoglobulin G 837 700 - 1,600 mg/dL [facility] Comment: Pediatric Reference Intervals obtained from the Caliper Reference Interval project. http://www.sickkids.ca/caliperproject/index.html IgA 100 70 - 400 mg/dL [facility] IgM 191 40 - 230 mg/dL [facility] Blood 09/09/2021 12:0 2 PM EDT 09/09/2021 12:23 PM EDT Narrative Resulting Agency Comment Spec In Lab Sebastian Raymundo MD CHEMISTRY ORDERA BLES [facility] [place] [address] * Beta 2 Microglobulin, serum (09/09/2021 12:02 PM EDT) Beta 2 Microglobulin 1.8 0.8 - 2.2 mg/L [facility] Blood 09/09/2021 12:0 2 PM EDT 09/09/2021 12:23 PM EDT Narrative Resulting Agency Comment Spec In Lab Sebastian Raymundo MD CHEMISTRY ORDERA BLES Performing Organization Address City/[facility]/ZIP Co de Phone Number [facility] [place] [address] * Hepatitis C Antibody (09/09/2021 12:02 PM EDT) Hepatitis C Antibody Negative Negative [facility] Blood 09/09/2021 12:0 2 PM EDT 09/09/2021 12:23 PM EDT Narrative Resulting Agency Comment Spec In Lab Sebastian Raymundo MD CHEMISTRY ORDERA BLES Performing Organization Address City/[facility]/ZIP Co de Phone Number [facility] [place] [address] * Hepatitis B Core Antibody, Total (09/09/2021 12:02 PM EDT) Hepatitis B Core Antibody Negative Negative [facility] Blood 09/09/2021 12:0 2 PM EDT 09/09/2021 12:23 PM EDT Narrative Resulting Agency Comment Spec In Lab Sebastian Raymundo MD CHEMISTRY ORDERA BLES Performing Organization Address City/[facility]/ZIP Co de Phone Number [facility] [place] [address] * Hepatitis B Surface Antigen (09/09/2021 12:02 PM EDT) Hepatitis B Surface Antigen Negative Negative [facility] Blood 09/09/2021 12:0 2 PM EDT 09/09/2021 12:23 PM EDT Narrative Resulting Agency Comment Spec In Lab Sebastian Raymundo MD CHEMISTRY ORDERA BLES Performing Organization Address City/[facility]/ZIP Co de Phone Number [facility] [place] [address] * Lactate Dehydrogenase (09/09/2021 12:02 PM EDT) Lactate Dehydrogenase 174 110 - 220 unit/L [facility] Blood 09/09/2021 12:0 2 PM EDT 09/09/2021 12:23 PM EDT Narrative Resulting Agency Comment Spec In Lab Sebastian Raymundo MD CHEMISTRY ORDERA BLES Performing Organization Address [facility] Co de Phone Number [facility] [place] [address] * (ABNORMAL) Comprehensive metabolic panel (non-fasting) (09/09/2021 12:02 PM EDT) Glucose 98 65 - 199 mg/dL [facility] Comment:Diabetes: >=200 mg/d L plus symptoms Blood Urea Nitrogen 15 8 - 18 mg/dL [facility] Creatinine 0.91 0.70 - 1.20 mg/dL [facility] Sodium 138 135 - 145 mmol/L [facility] Potassium 4.1 3.5 - 5.0 mmol/L [facility] Comment: Please note: ??Patients with WBC >100,000 may have falsely elevated Potassium levels. ??For accurate Potassium quantification in these patients send serum separator tube (gold top) for subsequent determinations. ??Contact the Clinical Chemistry Laboratory if there are any questions. Chloride 103 98 - 107 mmol/L [facility] Carbon Dioxide 25 22 - 31 mmol/L [facility] Anion Gap 10 5 - 15 mmol/L [facility] Calcium 9.5 8.5 - 10.5 mg/dL [facility] Protein, Total 7.5 6.1 - 8.0 g/dL [facility] Albumin 4.5 3.2 - 5.2 g/dL [facility] Aspartate Aminotransferase 18 0 - 30 unit/L [facility] Alanine Aminotransferase 40(H) 0 - 30 unit/L [facility] Alkaline Phosphatase 132(H) 35 - 105 unit/L [facility] Bilirubin, Total 0.3 0.2 - 1.3 mg/dL [facility] Est Glomerular Filtration Rate 77 >=60 mL/min/1. 73 m?? [facility] Comment: This patient? s estimated [...] Lab Sebastian Raymundo MD CHEMISTRY ORDERA BLES [facility] [place] [address] documented in this encounter Visit Diagnoses Diagnosis Abdominal mass, unspecified abdominal location documented in this encounter Care Teams Business Strategy Manager Relationship Specialty Start Date End Date Wallace Negron APRN [address] [place] [address] PCP - General Family Medicine 08/26/21 documented as of this encounter
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
--- OUTSIDE RECORDS SUMMARY | 2024-05-16 14:05 | XMS_ITS | Encounter Summary ---
Author Organization [facility] Address [facility] [place] [address] Care Team Providers Care Tablet Coater Name Role Phone Vesta Madden ADELFO Primary Care Provid er Reason for Visit * Consultation (Routine) - Specialty Diagnoses / Procedures Referred By Mari perez Referred To Contact Neurology Diagnoses Polyneuropathy, unspecified UNDIAGNOSED SENSORY PERIPHERAL NEUROPATHY Procedures SANG OR Austin Taylor, DO [address] [place] [address] [facility] [address] [place] [address] Referral ID Status Reason Start Date Expiration Date V isits Requested Visits Authorized [id number] Consult, [facility] PCP Updated and/or Approved 11/21/2018 11/22/2019 12 12 Encounter Details Date Type Department Care Team (Latest Contact Info) Description 02/12/2019 2:30 PM EDT Procedure [place] [phone] Prince De Jesus MD [facility] [place] [address] Small fiber neuropathy; Type 2 diabetes mellitus [...] Zhao (SEPTEMBER) 37 16 - 85 unit/L [facility] Comment: Test Performed by: [place] [address] Broaching Machine Set Up Operator: Dev Pena M.D. Ph.D.; CLIA# [id number] Blood specimen (specimen) 02/12/2019 3:21 PM EDT 02/13/2019 6:28 AM EDT Narrative Resulting Agency Comment Spec In Lab Prince De Jesus MD LAB SEND OUT ORDERAB LES [facility] [place] [address] * Protein Electrophoresis, serum (02/12/2019 3:21 PM EDT) Total Prot Electrophoresis 7.4 6.1 - 8.0 gm/dL [facility] Albumin Electrophoresis 4.86 3.60 - 6.00 gm/dL [facility] Alpha 1 Globulin 0.19 0.10 - 0.30 gm/dL [facility] Alpha 2 Globulin 0.75 0.40 - 0.90 gm/dL [facility] Beta Globulin 0.81 0.50 - 1.00 gm/dL [facility] Gamma Globulin 0.78 0.50 - 1.30 gm/dL [facility] M1 Band None Detected None Detected [facility] Blood specimen (specimen) 02/12/2019 3:21 PM EDT 02/12/2019 3:31 PM EDT Narrative Resulting Agency Comment Spec In Lab Prince De Jesus MD CHEMISTRY ORDERABLES [facility] [place] [address] * Hemoglobin A1c (02/12/2019 3:21 PM EDT) Hemoglobin A1c 5.5 4.3 - 5.6 % [facility] Comment: Reference Range: 4.3 [...] 1, S67-74 Estimated Average Glucose 111 mg/dL [facility] Comment: eAG equivalents for [...] into estimated average glucose values. ??Diabetes Care 2008:31(8):6006-6653. Blood specimen (specimen) 02/12/2019 3:21 PM EDT 02/12/2019 3:31 PM EDT Narrative Resulting Agency Comment Spec In Lab Prince De Jesus MD CHEMISTRY ORDERABLES Performing Organization Address [facility]/State/[facility] Co de Phone Number [facility] [place] [address] * Extractable Nuclear Antigen (ROSARIO) Ab (02/12/2019 3:21 PM EDT) ROSARIO Ab Test ?Result ?Flag ??Unit ??RefValue Ab to Extractable Nuclear Ag Eval,S ??SS-A/Ro Ab, IgG, S ?<0.2 ?U ? <1.0 (Negative) ??SS-B/La Ab, IgG, S ?<0.2 ?U ? <1.0 (Negative) ??Sm Ab, IgG, S ? <0.2 ?U ? <1.0 (Negative) ??ATTENDANT CHILD ACTIVITY Ab, IgG, S ?<0.2 ?U ? <1.0 (Negative) ??Scl 70 Ab, IgG, S ? <0.2 ?U ? <1.0 (Negative) ??Matilde 1 Ab, IgG, S ? <0.2 ?U ? <1.0 (Negative) ?Test Performed by: ?[facility] ?[address] [place] [address] ?Broaching Machine Set Up Operator: Dev Pena M.D. Ph.D.; CLIA# [id number] [facility] Blood specimen (specimen) 02/12/2019 3:21 PM EDT 02/13/2019 6:28 AM EDT Narrative Resulting Agency Comment Spec In Lab Prince De Jesus MD LAB SEND OUT ORDERAB LES [facility] [place] [address] documented in this encounter Visit Diagnoses Diagnosis Small fiber neuropathy Unspecified hereditary and idiopathic peripheral neuropathy Type 2 diabetes mellitus without complication, without long-term current use of insulin documented in this encounter Care Teams Tablet Coater Relationship Specialty Start Date End Date Vesta Madden APRN [address] [facility] [address] [place] [address] PCP - General Family Medicine 11/23/18 08/13/20 documented as of this encounter
--- OUTSIDE RECORDS SUMMARY | 2024-05-16 14:05 | XMS_ITS | Encounter Summary ---
Author Organization [facility] Address [facility] [place] [address] Care Team Providers Care Hydraulic Rock Drill Operator Name Role Phone Wallace Negron ADELFO Primary Care Provider +1- [phone] Encounter Details Date Type Department Care Team (Late st Contact Info) Description 07/24/2004 Orders Only Gastroenterology at [facility] [place] [address] Sree Nathan MD Social History Tobacco Use Types Packs/Day [...] 4:06 PM EST) Surgical Pathology Report [id number] ? Location: The signing pathologist has (i) [...] rendering the final pathologic diagnosis. ANITA BECKWITH 07/24/2004 4:06 PM EST Sree Nathan MD PATHOLOGY/CYTOLOGY O RDERABLES [facility] documented in this encounter Visit Diagnoses Not on filedocumented in this encounter Care Teams Hydraulic Rock Drill Operator Relationship Specialty Start Date End Date Wallace Negron APRN [address] [place] [address] [address] [place] [address] PCP - General Family Medicine 08/26/21 documented as of this encounter
--- OUTSIDE RECORDS SUMMARY | 2024-05-16 14:05 | XMS_ITS | Encounter Summary ---
Author Organization [facility] Address [facility] [place] [address] Care Team Providers Care Diesel Engine Engineer Name Role Phone East DaileyWallace ADELFO Primary Care Provider +1- [phone] Reason for Referral * Diagnostic Test (Routine) - Closed Specialty Diagnoses / Procedures Referred By Contmine t Referred To Contact Radiology Diagnoses Abdominal mass, unspecified abdominal location Procedures NM PET CT Skull Base to Mid-thigh Rosy Rodriguez MD [facility] [address] HEMATOLOGY/[place] [address] [place] [address] Referral ID Status Reason Start Date Expiration Date V isits Requested Visits Authorized [id number] Closed Specialty Service Requested 09/09/2021 03/12/2023 1 1 Reason for Visit * Diagnostic Test (Routine) - Closed Specialty Diagnoses / Procedures Referred By Contac t Referred To Contact Radiology Diagnoses Abdominal mass, unspecified abdominal location Procedures NM PET CT Skull Base to Mid-thigh Rosy Rodriguez MD [facility] HEMATOLOGY/[place] [address] [place] [address] Referral ID Status Reason Start Date Expiration Date V isits Requested Visits Authorized [id number] Closed Specialty Service Requested 09/09/2021 03/12/2023 1 1 Encounter Details Date Type Department Care Team (Latest Contact Info) Description 09/18/2021 9:50 AM EDT - 09/18/2021 9:53 AM EDT Hospital Encounter Nuclear Medicine at [facility] [place] [address] Sebastian Raymundo MD [facility] DR HEMATOLOGY [place] [address] Abdominal mass, unspecified abdominal location Discharge Disposition: [...] who have questions please contact the health patient care manager that requested your imaging first. ? Electronically signed by: Bonita Love MD, [facility] ([phone]), at 09/18/2021 3:48 PM Narrative 09/18/2021 3:48 PM EDT EXAMINATION: NM PET CT STANDARD SKULL BASE TO MID-THIGH CLINICAL HISTORY: Abdominal pain, acute, nonlocalized Additional history per EMR: No bleed diagnosed grade 1 follicular lymphoma, status post CT-guided biopsy of retroperitoneal lymph node on 08/26/2021 TECHNIQUE: Following IV injection of 24-oeknnr-1-deoxyglucose (FDG) a standard uptake of approximately 60 [...] abdomen/pelvis with IV and oral contrast from [facility] 07/06/2021. FINDINGS: HEAD/NECK: Subcentimeter bilateral level [...] difficult to measure discretely secondary to configuration, desk representative measurement in AP diameter approximately 4 [...] Note Bonita Love MD - 09/18/2021 EXAMINATION: [place] PET CT STANDARD SKULL BASE TO MID-THIGH CLINICAL HISTORY: Abdominal pain, acute, nonlocalized Additional history per EMR: No bleed diagnosed grade 1 follicularlymphoma, status post CT-guided biopsy of retroperitoneal lymph node on 08/26/2021 TECHNIQUE: Following IV injection of 95-ekpbzt-4-deoxyglucose (FDG) astandard uptake of approximately 60 minutes, [...] abdomen/pelvis with IV and oral contrast from [facility] 07/06/2021. FINDINGS: HEAD/NECK: Subcentimeter bilateral level 1 [...] CT, difficult to measurediscretely secondary to configuration, desk representative measurement in AP diameter approximately 4 [...] patients who have questions please contactthe health patient care manager that requested your imaging first. Sebastian [...] mCi documented in this encounter Care Teams Diesel Engine Engineer Relationship Specialty Start Date End Date Wallace Negron, TECHNICAL TRAINER [address] [place] [address] PCP - General Family Medicine 08/26/21 documented as of this encounter
--- OUTSIDE RECORDS SUMMARY | 2024-05-16 14:05 | XMS_ITS | Encounter Summary ---
Author Organization [facility] Address [facility] [place] [address] Care Team Providers Care Tong Hooker Name Role Phone Wallace Negron APRN Primary Care Provider +1- [phone] Encounter Details Date Type Department Care Team (Late st Contact Info) Description 12/09/2021 Orders Only Hematology [place] [address] Sebastian Raymundo MD [facility] [place] [address] Social History Tobacco Use Types Packs/Day Years [...] on filedocumented in this encounter Care Teams Tong Hooker Relationship Specialty Start Date End Date Wallace Negron APRN [address] [place] [address] PCP - General Family Medicine 08/26/21 documented as of this encounter
--- OUTSIDE RECORDS SUMMARY | 2024-05-16 14:05 | XMS_ITS | Encounter Summary ---
Author Organization [facility] Address [facility] [place] [address] Care Team Providers Care Nutritional Yeast Supervisor Name Role Phone Wallace Negron APRN Primary Care Provider [phone]- [phone] Encounter Details Date Type Department Care Team (Late st Contact Info) Description 09/18/2021 2:00 PM EDT Office Visit [place] [address] Sebastian Raymundo MD [facility] [address] [place] [address] Follicular lymphoma grade I, unspecified body region [...] DM2 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 FAMILY Hx: No biological siblings No FH of Heme malignancies; mother with Portein C deficiency and DVT EXM : No palpable lymphadenopathy; abdomen is distended, firm, with dull note in RUG, epigastric regions and umbilical region; could not feel discrete mass PET CT : COMPARISON: CT abdomen/pelvis with IV and oral contrast from [facility] [place] [facility] 07/06/2021. ?? FINDINGS: ?? HEAD/NECK: Subcentimeter bilateral [...] difficult to measure discretely secondary to configuration, welding equipment sales representative measurement in AP diameter approximately 4 [...] to f/up on this. Sebastian Schmitt MD [facility] 09/18/21 documented in this encounter Plan of Treatment Not on file documented as of this encounter Visit Diagnoses Diagnosis Follicular lymphoma grade I, unspecified body region documented in this encounter Care Teams Nutritional Yeast Supervisor Relationship Specialty Start Date End Date Wallace Negron, INTERNAL SALES ENGINEER [address] [place] [address] PCP - General Family Medicine 08/26/21 documented as of this encounter
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
--- OUTSIDE RECORDS SUMMARY | 2024-05-16 14:05 | XMS_ITS | Encounter Summary ---
Author Organization [facility] [place] [address] Care Team Providers Care Hand Cloth Cutter Name Role Phone Wallace Negron APRN Primary Care Provider [phone]- [phone] Reason for Referral * Diagnostic Test (Routine) - Closed Specialty Diagnoses / Procedures Referred By Mari perez Referred To Contact Radiology Diagnoses Other specified symptoms and signs involving the digestive system and abdomen Procedures CT Guided Biopsy Lymph Node (Chest/Abd/Pelvis) CT Guided Biopsy Peritoneal/Omental Wallace Negron APRN [address] [place] [address] [place] [address] Referral ID Status Reason Start Date Expiration Date V isits Requested Visits Authorized [id number] Closed Specialty Service Requested 06/18/2021 12/16/2022 1 1 Reason for Visit * Diagnostic Test (Routine) - Closed Specialty Diagnoses / Procedures Referred By Mari perez Referred To Contact Radiology Diagnoses Other specified symptoms and signs involving the digestive system and abdomen Procedures CT Guided Biopsy Lymph Node (Chest/Abd/Pelvis) CT Guided Biopsy Peritoneal/Omental Wallace Negron APRN [address] [place] [address] [facility] [place] [address] Referral ID Status Reason Start Date Expiration Date V isits Requested Visits Authorized [id number] Closed Specialty Service Requested 06/18/2021 12/16/2022 1 1 Encounter Details Date Type Department Care Team (Late st Contact Info) Description 08/26/2021 12:21 PM EDT - 08/26/2021 11:59 PM EDT Hospital Encounter CT Scan at [facility] [place] [address] Wallace Negron R, ENVIRONMENT FRIENDLY LANDSCAPE DESIGNER [address] [place] [address] Abdominal mass, unspecified abdominal location; Other specified [...] Baxter LPN - 08/26/2021 2:02 PM EDT [facility] Vascular and Interventional Radiology Biopsy Discharge [...] be reported to you by your primary resident care associate or the clinician who ordered the biopsy. Please do not call us for results as we will not have them. If you have not been contacted by your clinician within 5 business days you should call that officefor further information. When to call the Interventional Radiology Department: Please call with any questions or concerns. If it is during regular office hours, please call [phone]. If it is after regular office hours, or on weekends or holidays, please call [phone] and ask to speak to the Director Mobile liquefaction and regasification helper for Interventional Radiology. You have received medication [...] of : 1980 AGE: 41 y.o. Address: [address] [address] (home) Mobile: Telephone Information: Referring Provider: Wallace Negron REASON FOR VISIT: Order Questions Answers Where will study be performed? [facility] Radiology [120] Is the patient on [...] biopsy of a LEFT para-aortic lymph node. Business Intelligence Director(s): Resident/Fellow: None Attending: Jarvis Garrido MD Procedure/Teaching [...] who have questions please contact the health certified caregiver that requested your imaging first. ? Electronically signed by: Jarvis Garrido MD, [facility] ([phone]), at 08/26/2021 1:58 PM Narrative 08/26/2021 1:58 [...] guided biopsy of aLEFT para-aortic lymph node. Business Intelligence Director(s): Resident/Fellow: None Attending: Jarvis Garrido MD Procedure/Teaching Attestation: I performed the procedure. Moderate Sedation Attestation: I was present during the intra-service timeas documented by IR nurse. Thank you for letting us participate in the care of this patient. If youare a health care provider and have any questions regarding this report,please contact the number below. For patients who have questions please contactthe health certified caregiver that requested your imaging first. Electronically signed by: Jarvis Garrido MD, [facility]([phone]), at 08/26/2021 1:58 PM Wallace Negron ENVIRONMENT FRIENDLY LANDSCAPE DESIGNER IMG CT ORDERABLES * Surgical Pathology Report (08/26/2021 1:35 PM EDT) Final Diagnosis [id number] ? Location: [facility] The signing pathologist has (i) examined [...] MD Verified: ??08/28/2021 20:03 ??Hematopathologist Performed at: ??-[facility] Dept. [place], [place], [place] DISCUSSION Concurrent flow cytometry studies demonstrated a kappa-restricted CD10+ mature B-cell population, compatible with the morphologic findings and above diagnosis (see # [id number]). ADDITIONAL STUDIES MICROSCOPIC DESCRIPTION ? The histologic [...] nodules do not seem to have a 'faww-sh-vagx' configuration, and some of the tissue fragments [...] developed and their performance characteristics determined by [facility]. They have not been cleared [...] to 1.0 x 0.1 cm Tissue Description: [place]-white needle core biopsies. Sections/Processing : Entirely submitted in 2 cassettes labeled A1-A2. ??sns 08/28/2021 8:03 PM EDT [facility] LYMPH NODE SPECIMEN / Unknown 08/26/2021 1:35 PM EDT 08/26/2021 1:35 PM EDT Jarvis Garrido MD PATHOLOGY/CYTOLOGY ORDERABLES [facility] [place] [address] * Flow Cytometry Report (08/26/2021 1:35 PM EDT) Flow Cytometry Report [id number] ? Location: [facility] The signing pathologist has (i) examined [...] in the primary biopsy report (see # [id number]). Electronically signed by: ?Randy Her MD Verified: ??08/27/2021 14:04 ??Hematopathologist Performed at: ??-[facility] Dept. of Pathology, [place], [place] DISCUSSION Cell viability in the ST11-ssbrsk low-SSC scatterplot region was 78% as assessed [...] by the Clinical Flow Cytometry Laboratory at [facility]. It has not been cleared or approved [...] high complexity clinical laboratory testing. SPECIMEN PROCESSING [id number] Cells for immunophenotypic analysis were derived from [...] biopsy of a left para-aortic lymph node. [facility] 08/26/2021 1:35 PM EDT Jarvis Garrido MD PATHOLOGY/CYTOLOGY ORDERABLES Performing Organization Address City/[facility]/ZIP Co de Phone Number [facility] [place] [address] * Immunophenotyping Flow Cytometry (08/26/2021 1:35 PM EDT) Immunophenotyping Flow See Comment [facility] Comment: When completed by the Pathologist, the Flow Cytometry Report ([id number]) will display under the Pathology Results section within eDH. Other 08/26/2021 1:35 PM EDT 08/26/2021 1:57 PM EDT Narrative Resulting Agency Comment Spec In Lab Wallace Negron APRN HEMATOLOGY ORDERAB LES Performing Organization Address City/[facility]/ZIP Co de Phone Number [facility] [place] [address] * POCT Glucose (08/26/2021 12:54 PM EDT) Glucose, POC 85 65 - 199 mg/dL [facility] Comment: Supplemental ranges: <140 mg/dL before meals <180 mg/dL all other times of the day Blood 08/26/2021 12:5 4 PM EDT 08/26/2021 12:54 PM EDT Wallace Negron APRN POINT OF CARE TEST ORDERABLES [facility] [place] [address] * Specimen to Pathology (08/26/2021 12:54 PM EDT) AP Specimen 08/26/2021 12:5 4 PM EDT 08/26/2021 12:54 PM EDT Narrative [facility] - 08/26/2021 12:54 PM EDT Specimen requisition ordered. ??Separate Pathology report to follow Wallace Negron APRN PATHOLOGY/CYTOLOGY ORDERABLES Performing Organization Address City/[facility] Co de Phone Number [facility] [place] [address] * Hemogram (08/26/2021 12:07 PM EDT) White Blood Cell 8.0 4.0 - 9.5 x10(3)/[facility] Red Blood Cell 4.64 4.00 - 5.21 x10(6)/[facility] Hemoglobin 13.8 11.7 - 15.5 g/dL [facility] Hematocrit 41.1 35.7 - 45.8 % [facility] Mean Cell Volume 88.6 82.6 - 94.4 fL [facility] Mean Cell Hemoglobin 29.7 27.1 - 32.0 pg [facility] Mean Cell Hemoglobin Concentration 33.6 31.7 - 35.0 g/dL [facility] Platelet 272 145 - 357 x10(3)/[facility]ORAT[facility] RDW Standard Deviation 40.3 37.0 - 46.0 fL [facility] RDW coefficient of variation 12.4 11.5 - 14.1 % [facility] Mean Platelet Volume 10.7 7.6 - 12.9 fL [facility] NRBC% auto 0.0 % [facility] NRBC Absolute 0.000 0.000 - 0.000 x10(3)/mcL [facility] Blood 08/26/2021 12:0 7 PM EDT 08/26/2021 12:17 PM EDT Narrative Resulting Agency Comment Spec In Lab Wallace Negron APRN HEMATOLOGY ORDERAB LES [facility] [place] [place] [address] documented in this encounter Visit Diagnoses Diagnosis [...] mg documented in this encounter Care Teams Hand Cloth Cutter Relationship Specialty Start Date End Date Wallace Negron, ENVIRONMENT FRIENDLY LANDSCAPE DESIGNER [address] [place] [address] PCP - General Family Medicine 08/26/21 documented as of this encounter
--- OUTSIDE RECORDS SUMMARY | 2024-05-16 14:05 | XMS_ITS | Encounter Summary ---
Author Organization [facility] Address [facility] [place] [address] Care Team Providers Care Fabric Cutter Name Role Phone Maury Ware Primary Care Provider [phone] Reason for Visit * Consultation (Routine) - Closed Specialty Diagnoses / Procedures Referred By Mari perez Referred To Contact Neurology Diagnoses severe painful sens neuropathy, h/o Dandy Walker with prior shunt, needs electrical testing and disc of tx option Austin Puentes DO [address] [place] [address] Austin Castro MD [facility] [place] [address] Referral ID Status Reason Start Date Expiration Date V isits Requested Visits Authorized [id number] Closed Connection Center 10/18/2016 10/18/2017 1 1 Encounter Details Date Type Department Care Team (Latest Contact Info) Description 02/08/2017 10:00 AM EDT Procedure [place] [address] Prince De Jesus MD [facility] [place] [address] Small fiber neuropathy Social History Tobacco Use [...] and a nondrinker. She works at the [employer] in [place], [place]. She likes to read. She gets [...] and her toes. Her gait was normal. Etzowb-yf-flij and egbs-la-xfso was intact. The patient underwent some nerve [...] nuclear antigen. There is a pharmacy in [place], [place] that will compound ointments that can be put on the feet to mitigate the pain of small fiber neuropathy. The name of the pharmacy is [facility] in [place], [place], telephone number is [phone] We did discuss weight loss and blood sugar control. All of her questions were answered. Thank you for this consultation. documented in this encounter Plan of Treatment Not on file documented as of this encounter Visit Diagnoses Diagnosis Small fiber neuropathy Unspecified hereditary and idiopathic peripheral neuropathy documented in this encounter Care Teams Fabric Cutter Relationship Specialty Start Date End Date Maury Ware DO PCP - General General Internal Medicine 02/08/1711/06 documented as of this encounter
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
--- OUTSIDE RECORDS SUMMARY | 2024-05-16 14:05 | XMS_ITS | Encounter Summary ---
[place] [address] Care Team Providers Care Log Hooker Name Role Phone Wallace Negron APRN Primary Care Provider +1- [phone] Reason for Referral * Consultation (Urgent) - Closed Specialty Diagnoses / Procedures Referred By Mari perez Referred To Contact Hematology and Oncology Diagnoses Follicular lymphoma, unspecified follicular lymphoma type, unspecified body region Wallace Negron APRN [address] [place] [address] [facility] Hem Onc [address] [place] [address] Referral ID Status Reason Start Date Expiration Date V isits Requested Visits Authorized [id number] Closed Consult, Test & Treat PCP Updated and/or Approved 09/02/2021 09/02/2022 6 6 Encounter Details Date Type Department Care Team (Late st Contact Info) Description 09/02/2021 Transcribe Orders eDH Incoming Referrals [phone] Wallace Negron APRN [address] [place] [address] Follicular lymphoma, unspecified follicular lymphoma [...] region documented in this encounter Care Teams Log Hooker Relationship Specialty Start Date End Date Wallace Negron, RESIDENTIAL DOOR INSTALLER [address] [place] [address] [address] [place] [address] PCP - General Family Medicine 08/26/21 documented as of this encounter
--- OUTSIDE RECORDS SUMMARY | 2024-05-16 14:05 | XMS_ITS | Encounter Summary ---
Author Organization [facility] Address [facility] [place] [address] Care Team Providers Care Bracelet Former Name Role Phone MigdaliaWallace ADELFO Primary Care Provider +1- [phone] Encounter Details Date Type Department Care Team (Latest Contact Info) Description 01/22/2022 12:09 PM EDT - 01/22/2022 11:59 PM EDT Hospital Encounter [place] [id number] Follicular lymphoma grade I, unspecified body region [...] 12:24 PM EDT) Neutrophil % 64.0 % [facility] Neutrophil Absolute 4.34 1.70 - 6.10 x10(3)/[facility] Lymph % 22.4 % [facility] Lymphocytes Abs 1.5 0.9 - 3.2 x10(3)/[facility] Monocyte % 9.7 % [facility] Monocyte Abs 0.7 0.3 - 0.9 x10(3)/[facility] Eos % 3.4 % [facility] Eosinophils Abs 0.2 0.0 - 0.4 x10(3)/[facility] Basophil % 0.4 % [facility] Baso Absolute 0.0 0.0 - 0.1 x10(3)/[facility] Immature Gran % 0.10 % [facility] Comment: Immature granulocytes(IG's)percentage and absolute count will include metamyelocytes, myelocytes, and promyelocytes. Blood smears from CBCs yielding IG's will be scanned manually for concordance. If this scan disagrees with the automated IG or if promyelocytes are noted, a manual differential will be performed. Immature Gran Absolute 0.01 0.00 - 0.04 x10(3)/[facility] Blood 01/22/2022 12:2 4 PM EDT 01/22/2022 1:01 PM EDT Narrative Resulting Agency Comment Spec In Lab Sebastian Raymundo MD HEMATOLOGY ORDER KAREEN [facility] [place] [address] * Hemogram (01/22/2022 12:24 PM EDT) White Blood Cell 6.8 4.0 - 9.5 x10(3)/[facility] Red Blood Cell 4.70 4.00 - 5.21 x10(6)/[facility] Hemoglobin 13.5 11.7 - 15.5 g/dL [facility] Hematocrit 41.2 35.7 - 45.8 % [facility] Mean Cell Volume 87.7 82.6 - 94.4 fL [facility] Mean Cell Hemoglobin 28.7 27.1 - 32.0 pg [facility] Mean Cell Hemoglobin Concentration 32.8 31.7 - 35.0 g/dL [facility] Platelet 323 145 - 357 x10(3)/[facility] RDW Standard Deviation 40.0 37.0 - 46.0 [facility] RDW coefficient of variation 12.5 11.5 - 14.1 % [facility] Mean Platelet Volume 10.3 7.6 - 12.9 [facility] NRBC% auto 0.0 % [facility] NRBC Absolute 0.000 0.000 - 0.000 x10(3)/[facility] Blood 01/22/2022 12:2 4 PM EDT 01/22/2022 1:01 PM EDT Narrative Resulting Agency Comment Spec In Lab Sebastian Raymundo MD HEMATOLOGY ORDER KAREEN [facility] [place] [address] * Lactate Dehydrogenase (01/22/2022 12:24 PM EDT) Lactate Dehydrogenase 157 110 - 220 unit/L [facility] Blood 01/22/2022 12:2 4 PM EDT 01/22/2022 1:01 PM EDT Narrative Resulting Agency Comment Spec In Lab Sebastian Raymundo MD CHEMISTRY ORDERA BLES Performing Organization Address City/[facility]/ZIP Co de Phone Number [facility] [place] [address] * (ABNORMAL) Comprehensive metabolic panel (non-fasting) (01/22/2022 12:24 PM EDT) Glucose 95 65 - 199 mg/dL [facility] Comment:Diabetes: >=200 mg/d L plus symptoms Blood Urea Nitrogen 20(H) 8 - 18 mg/dL [facility] Creatinine 0.84 0.70 - 1.20 mg/dL [facility] Sodium 142 135 - 145 mmol/L [facility] Potassium 4.1 3.5 - 5.0 mmol/L [facility] Comment: Please note: ??Patients with WBC >100,000 may have falsely elevated Potassium levels. ??For accurate Potassium quantification in these patients send serum separator tube (gold top) for subsequent determinations. ??Contact the Clinical Chemistry Laboratory if there are any questions. Chloride 104 98 - 107 mmol/L [facility] Carbon Dioxide 29 22 - 31 mmol/L [facility] Anion Gap 9 5 - 15 mmol/L [facility] Calcium 9.6 8.5 - 10.5 mg/dL [facility] Protein, Total 7.3 6.1 - 8.0 g/dL [facility] Albumin 4.5 3.2 - 5.2 g/dL [facility] Aspartate Aminotransferase 13 0 - 30 unit/L [facility] Alanine Aminotransferase 25 0 - 30 unit/L [facility] Alkaline Phosphatase 130(H) 35 - 105 unit/L [facility] Bilirubin, Total 0.2 0.2 - 1.3 mg/dL [facility] Est Glomerular Filtration Rate 88 >=60 mL/min/1. 73 m?? [facility] Comment: This patient's estimated GFR [...] Lab Sebastian Raymundo MD CHEMISTRY ORDERA BLES [facility] [place] [address] documented in this encounter Visit Diagnoses Diagnosis Follicular lymphoma grade I, unspecified body region documented in this encounter Care Teams Bracelet Former Relationship Specialty Start Date End Date Wallace Negron APRN [address] [place] [address] PCP - General Family Medicine 08/26/21 documented as of this encounter
--- OUTSIDE RECORDS SUMMARY | 2024-05-16 14:05 | XMS_ITS | Encounter Summary ---
Author Organization [facility] Address [facility] [place] [address] Care Team Providers Care Retort Kiln Burner Name Role Phone Unknown Primary Care Provider Unavailabl e Encounter Details Date Type Department Care Team (Late st Contact Info) Description 06/08/2021 Ancillary Procedure Radiology Library at [facility] [place] [address] Wallace Negron APRN [address] [place], [place] [id number] Social History Tobacco Use Types Packs/Day Years [...] & Pelvis (06/08/2021 12:00 AM EST) Narrative [facility] - 06/18/2021 2:53 PM EST This exam is auto-finalizing. It's purpose is for storage only. Wallace Negron APRN IMG FILM LIBRARY O RDERABLES [place], [place] documented in this encounter Visit Diagnoses Not on filedocumented in this encounter Care Teams Retort Kiln Burner Relationship Specialty Start Date End Date Unknown None PCP - General 08/14/20 08/25/21 documented as of this encounter
--- OUTSIDE RECORDS SUMMARY | 2024-05-16 14:05 | XMS_ITS | Encounter Summary ---
Author Organization [facility] Address [facility] [place] [address] Care Team Providers Care Enrichment Director Name Role Phone Wallace Negron ADELFO Primary Care Provider +1- [phone] Reason for Referral * Diagnostic Test (Routine) - Closed Specialty Diagnoses / Procedures Referred By Mari perez Referred To Contact Radiology Diagnoses Follicular lymphoma grade I, unspecified body region Procedures NM PET CT Skull Base to Mid-thigh Sebastian Raymundo MD [facility] [address] [place] [address] [place] [address] Referral ID Status Reason Start Date Expiration Date V isits Requested Visits Authorized [id number] Closed Specialty Service Requested 10/06/2021 04/07/2023 1 1 Encounter Details Date Type Department Care Team (Latest Contact Info) Description 09/29/2021 Multidisciplinary Ca re Committee [place] [address] Sebastian Raymundo MD [facility] [address] [place] [address] Follicular lymphoma grade I, unspecified [...] who have questions please contact the health wound care center consultant that requested your imaging first. ? Electronically signed by: Sergo Liang MD, [facility] ([phone]), at 01/22/2022 3:17 PM Narrative 01/22/2022 3:17 PM EDT EXAMINATION: NM PET CT STANDARD SKULL BASE TO MID-THIGH CLINICAL HISTORY: Non-Hodgkin lymphoma, staging; Low grade follicular lymphoma with PET showing uptake in the clavicle head TECHNIQUE: Following IV injection of 17-kwafjz-1-deoxyglucose (FDG) a standard uptake of approximately 60 [...] clavicle head TECHNIQUE: Following IV injection of 19-tzriwj-6-deoxyglucose (FDG) astandard uptake of approximately 60 minutes, [...] patients who have questions please contactthe health wound care center consultant that requested your imaging first. Electronically signed by: Sergo Liang MD, [facility]([phone]), at 01/22/2022 3:17 PM Sebastian Raymundo MD IMG PET ORDERABL ES documented in this encounter Visit Diagnoses Diagnosis Follicular lymphoma grade I, unspecified body region Follicular lymphoma grade I, unspecified body region documented in this encounter Care Teams Enrichment Director Relationship Specialty Start Date End Date Wallace Negron, CHEMICAL MIXER [address] [place] [address] PCP - General Family Medicine 08/26/21 documented as of this encounter
--- OUTSIDE RECORDS SUMMARY | 2024-05-16 14:05 | XMS_ITS | Encounter Summary ---
Author Organization [facility] Address [facility] [place] [address] Care Team Providers Care Metaphysician Name Role Phone Wallace Negron ADELFO Primary Care Provider [phone]- [phone] Reason for Visit * Diagnostic Test (Routine) - Closed Specialty Diagnoses / Procedures Referred By Mari perez Referred To Contact Radiology Diagnoses Follicular lymphoma grade I, unspecified body region Procedures NM PET CT Skull Base to Mid-thigh Sebastian Raymundo MD [facility] [address] [place] [address] [facility] [place] [address] Referral ID Status Reason Start Date Expiration Date V isits Requested Visits Authorized [id number] Closed Specialty Service Requested 10/06/2021 04/07/2023 1 1 Encounter Details Date Type Department Care Team (Latest Contact Info) Description 01/22/2022 9:19 AM EDT - 01/22/2022 12:08 PM EDT Hospital Encounter [place] [address] Sebastian Raymundo MD [facility] [address] [place] [address] Discharge Disposition: Home Social History [...] Glucose, POC 91 65 - 199 mg/dL [facility] Comment: Supplemental ranges: <140 mg/dL before meals <180 mg/dL all other times of the day Blood 01/22/2022 9:32 AM EDT 01/22/2022 9:32 AM EDT Sebastian Raymundo MD POINT OF CARE [facility] ORDERABLES [facility] [place] [address] documented in this encounter Visit Diagnoses Not on filedocumented in this encounter Care Teams Metaphysician Relationship Specialty Start Date End Date Wallace Negron, LOCKSTITCH COAT JOINER [address] [place] [address] PCP - General Family Medicine 08/26/21 documented as of this encounter
--- OUTSIDE RECORDS SUMMARY | 2024-05-16 14:05 | XMS_ITS | Encounter Summary ---
Author Organization [facility] Address [facility] [place] [address] Care Team Providers Care Mold Closer Name Role Phone Wallace Negron ADELFO Primary Care Provider [phone]- [phone] Encounter Details Date Type Department Care Team (Late st Contact Info) Description 01/16/2008 Orders Only Dermatology at [place] [address] [place] [address] Fran Anthony MD [address], [place] [address] Social History Tobacco Use Types [...] place to sleep or slept in a fpc (including now)? No 04/20/2022 Sex and Gender [...] (01/16/2008 6:25 PM EDT) Surgical Pathology Report [id number] ? Location: [facility] The signing pathologist has (i) examined the relevant preparation(s) for the specimen(s) and (ii) rendered or confirmed the diagnosis(es). . ?Pathology Surgical Pathology Final Report Clinical Information Specimen Submitted: A - (L) submammary chest, shave: Clinical History: Bothersome mole Clinical Diagnosis: Nevus Report to: Fran Anthony MD, III [facility] [place], [place] ??[address] Gross Description Labeled/Fixative: ? L submammary chest, [...] MD PATHOLOGY/CYTOLOGY O RDERABLES Performing Organization Address City/State/[facility] Co de Phone Number ANITA BECKWITH documented in this encounter Visit Diagnoses Not on filedocumented in this encounter Care Teams Mold Closer Relationship Specialty Start Date End Date Wallace Negron, DARK ROOM ATTENDANT [address] [place] [address] PCP - General Family Medicine 08/26/21 documented as of this encounter
--- OUTSIDE RECORDS SUMMARY | 2024-05-16 14:05 | XMS_ITS | Encounter Summary ---
Author Organization [facility] Address [facility] [place] [address] Care Team Providers Care Testing Director Name Role Phone Wallace Negron ADELFO Primary Care Provider [phone]- [phone] Reason for Visit * Diagnostic Test (Routine) - Closed Specialty Diagnoses / Procedures Referred By Mari perez Referred To Contact Radiology Diagnoses Abdominal mass, unspecified abdominal location Procedures NM PET CT Skull Base to Mid-thigh Rosy Rodriguez MD [facility] DR HEMATOLOGY/[place] [address] [facility] [place] [address] Referral ID Status Reason Start Date Expiration Date V isits Requested Visits Authorized [id number] Closed Specialty Service Requested 09/09/2021 03/12/2023 1 1 Encounter Details Date Type Department Care Team (Latest Contact Info) Description 09/18/2021 9:54 AM EDT - 09/18/2021 11:59 PM EDT Hospital Encounter [place] [address] Sebastian Raymundo MD [facility] [address] [place] [address] Discharge Disposition: Home Social History [...] Glucose, POC 87 65 - 199 mg/dL [facility] Comment: Supplemental ranges: <140 mg/dL before meals <180 mg/dL all other times of the day Blood 09/18/2021 10:0 3 AM EDT 09/18/2021 10:03 AM EDT Sebastian Raymundo MD POINT OF CARE TE ST ORDERABLES [facility] [place] [address] documented in this encounter Visit Diagnoses Not on filedocumented in this encounter Care Teams Testing Director Relationship Specialty Start Date End Date Wallace Negron APRN [address] [place] [address] PCP - General Family Medicine 08/26/21 documented as of this encounter
--- OUTSIDE RECORDS SUMMARY | 2024-05-16 14:05 | XMS_ITS | Encounter Summary ---
Author Organization [facility] [place] [address] Care Team Providers Care Supervisor Lamp Shades Name Role Phone MigdaliaWallace ADELFO Primary Care Provider [phone]- [phone] Reason for Referral * Diagnostic Test (Routine) - Closed Specialty Diagnoses / Procedures Referred By Mari perez Referred To Contact Radiology Diagnoses Follicular lymphoma grade I, unspecified body region Procedures NM PET CT Skull Base to Mid-thigh Sebastian Raymundo MD [facility] [address] [place] [address] [place] [address] Referral ID Status Reason Start Date Expiration Date V isits Requested Visits Authorized [id number] Closed Specialty Service Requested 10/06/2021 04/07/2023 1 1 Reason for Visit * Diagnostic Test (Routine) - Closed Specialty Diagnoses / Procedures Referred By Mari perez Referred To Contact Radiology Diagnoses Follicular lymphoma grade I, unspecified body region Procedures NM PET CT Skull Base to Mid-thigh Sebastian Raymundo MD [facility] [place] [address] [place] [address] Referral ID Status Reason Start Date Expiration Date V isits Requested Visits Authorized [id number] Closed Specialty Service Requested 10/06/2021 04/07/2023 1 1 Encounter Details Date Type Department Care Team (Latest Contact Info) Description 01/22/2022 9:18 AM EDT Hospital En[place] [address] Sebastian Raymundo MD [facility] DR [place] [address] Follicular lymphoma grade I, unspecified body region [...] who have questions please contact the health career consultant that requested your imaging first. ? Electronically signed by: Sergo Liang MD, [facility] ([phone]), at 01/22/2022 3:17 PM Narrative 01/22/2022 3:17 PM EDT EXAMINATION: NM PET CT STANDARD SKULL BASE TO MID-THIGH CLINICAL HISTORY: Non-Hodgkin lymphoma, staging; Low grade follicular lymphoma with PET showing uptake in the clavicle head TECHNIQUE: Following IV injection of 74-slxosg-5-deoxyglucose (FDG) a standard uptake of approximately 60 [...] clavicle head TECHNIQUE: Following IV injection of 68-xyqcls-1-deoxyglucose (FDG) astandard uptake of approximately 60 minutes, [...] patients who have questions please contactthe health career consultant that requested your imaging first. Electronically signed by: Sergo Liang MD, [facility]([phone]), at 01/22/2022 3:17 PM Sebastian Raymundo MD [...] mCi documented in this encounter Care Teams Supervisor Lamp Shades Relationship Specialty Start Date End Date Wallace Negron, CHICKEN DRESSER [address] [place] [address] [address] [place] [address] PCP - General Family Medicine 08/26/21 documented as of this encounter
[2024-05-16 21:30] LABS: COMMENT (LAB VIEW ONLY) 37.09 mg/dL
== END 2024-05-16 14:00 | disposition home or self-care (01) ==
LOC: LBN 13:59
PROVIDERS: PCP Nurse Practitioner Family; Visit Provider Nurse Practitioner Family
DX: Z13.220 Encounter for screening for lipoid disorders; F41.8 Other specified anxiety disorders; R73.03 Prediabetes; F81.9 Developmental disorder of scholastic skills, unspecified; G89.4 Chronic pain syndrome
CPT/HCPCS: 82043; 82570

== ENCOUNTER 2024-07-27 19:21 | Emergency (ER) | payer MEDICARE, SELFPAY ==
[2024-07-27 19:28] VITALS: BP 149/88; PULSE 95; RESP 18; TEMP 36.9; O2SAT 98
--- NOTE | 2024-07-27 19:41 | W.ED.GENAD ---
Discharge Plan Disposition Patient Disposition: Home Condition: Stable Discharge Details Clinical Impression: Corneal abrasion Primary Care Provider: Wallace Negron ED Provider: Bill Zelaya Home Meds and New Rx's Prescriptions: Continued metformin 500 mg tablet 500 mg PO BID Qty: 180 3RF albuterol sulfate 90 mcg/actuation HFA aerosol inhaler 1 puff inhalation ONCE PRN (Reason: bronchospasm) Qty: 8.5 5RF Rx Instructions: Every 4 hours PRN gabapentin 300 mg capsule 300 mg PO TID Qty: 270 3RF esomeprazole magnesium 40 mg capsule,delayed release(DR/EC) 40 mg PO BID Qty: 180 3RF fluoxetine 20 mg capsule 40 mg PO DAILY Qty: 180 3RF lorazepam 0.5 mg tablet 0.5 mg PO TID PRN (Reason: anxiety) Qty: 56 3RF acetaminophen-codeine 300-30 mg tablet 1 tab PO TID PRN (Reason: pain) Qty: 84 0RF baclofen 20 mg tablet 20 mg PO TID Qty: 90 2RF Discharge Instructions Instructions: Erythromycin (Ophthalmic), Corneal Abrasion ED Additional Instructions: You were seen in the emergency department for the corneal abrasion of the right eye, we provided you with erythromycin eye ointment, you need to apply this ointment to your right eye 4 times per day for 5 days. Take regular dose of your at home Tylenol with codeine for pain, apply cool compresses to the eye and you may want to tape a nonstick dressing over your eye to help you sleep at night. Please return to the emergency department for acute worsening or loss of vision despite treatment Referrals: Wallace Negron, BILLET SAWYER [Primary Care Provider] - Discharge Data Discharge Date/Time-TO BE ENTERED AT DEPARTURE: 07/27/24 20:31 HPI General Date/Time Provider Initiated Documentation: 07/27/24 19:35. HPI Narrative: 44 year-old female presents to ED today by POV/ambulating with a chief complaint of possible FB to eye- states she had a sleep study last night, and feels like some glue from the electrodes got in her eye while showering today. Quality described as right eye irritation, no radiation to discharge, loss of vision, blurry vision- patient has been rubbing her eye a lot today. Severity is described as severe. Palliating factors include nothing specific. Provoking factors include nothing specific. Patient not anticoagulated. Related Data Home Medications ?Medication ?Instructions ?Recorded ?Confirmed albuterol sulfate 90 mcg/actuation 1 puff inhalation ONCE PRN 06/08/23 07/27/24 aerosol inhaler bronchospasm #8.5 grams gabapentin 300 mg capsule 300 mg PO TID #270 caps 12/21/23 07/27/24 esomeprazole magnesium 40 mg 40 mg PO BID #180 caps 02/06/24 07/27/24 capsule,delayed release fluoxetine 20 mg capsule 40 mg (2 x 20 mg) PO DAILY #180 03/07/24 07/27/24 caps metformin 500 mg tablet 500 mg PO BID #180 tabs 04/11/24 07/27/24 lorazepam 0.5 mg tablet 0.5 mg PO TID PRN anxiety #56 tabs 04/25/24 07/27/24 acetaminophen 300 mg-codeine 30 mg 1 tab PO TID PRN pain #84 tabs 07/09/24 07/27/24 tablet baclofen 20 mg tablet 20 mg PO TID #90 tabs 07/23/24 07/27/24 Previous Rx's ?Medication ?Instructions ?Recorded albuterol sulfate 90 mcg/actuation 1 puff inhalation ONCE PRN 06/08/23 aerosol inhaler bronchospasm #8.5 grams gabapentin 300 mg capsule 300 mg PO TID #270 caps 12/21/23 esomeprazole magnesium 40 mg 40 mg PO BID #180 caps 02/06/24 capsule,delayed release fluoxetine 20 mg capsule 40 mg (2 x 20 mg) PO DAILY #180 03/07/24 caps metformin 500 mg tablet 500 mg PO BID #180 tabs 04/11/24 lorazepam 0.5 mg tablet 0.5 mg PO TID PRN anxiety #56 tabs 04/25/24 acetaminophen 300 mg-codeine 30 mg 1 tab PO TID PRN pain #84 tabs 07/09/24 tablet baclofen 20 mg tablet 20 mg PO TID #90 tabs 07/23/24 Allergies Allergy/AdvReac Type Severity Reaction Status Date / Time cephalexin monohydrate (From Allergy Severe Anaphylaxsi Verified 07/27/24 19:28 Keflex) s nitrofurantoin (From Allergy Severe Anaphylaxsi Verified 07/27/24 19:28 Macrobid) s Sulfa (Sulfonamide Allergy Severe Anaphylaxsi Verified 07/27/24 19:28 Antibiotics) s topiramate (From Topamax) Allergy Severe Anaphylaxsi Verified 07/27/24 19:28 s ibuprofen Allergy Mild Hives Verified 07/27/24 19:28 cefazolin Allergy Unknown Other (See Verified 07/27/24 19:28 Comment) celecoxib (From Celebrex) Allergy Unknown Hives Verified 07/27/24 19:28 duloxetine (From Cymbalta) Allergy Unknown Swelling/Ed Verified 07/27/24 19:28 bert naproxen Allergy Unknown Hives Verified 07/27/24 19:28 pregabalin (From Lyrica) Allergy Unknown Swelling/Edema, Verified 07/27/24 19:28 tongue swelling, angioedema tramadol Allergy Unknown unknown Verified 07/27/24 19:28 wheat Allergy Unknown unknown Verified 07/27/24 19:28 General Stated Complaint: EyeProblem NICOLE: 4 Review of Systems All systems reviewed & are unremarkable except as noted in HPI and below Exam Narrative Exam Narrative: GENERAL APPEARANCE: Well-nourished, non-toxic, awake and alert, atraumatic, no acute distress. SKIN: Warm, pink, dry, intact, without rashes/lesions/ulcerations. HEAD: Normocephalic, atraumatic, normal hair distribution for gender/age. EYES: No exudates on lids/lashes, mild erythema to OD conjunctiva, minor corneal abrasion to OD, EOMs intact without nystagmus, no severe pain with EOM testing, no discharge ENT: Nares patent, no circumoral cyanosis, no facial swelling NECK: Supple, trachea midline, painless cervical ROM. LUNGS/CHEST: Non-labored respirations, normal A/P diameter, symmetrical expansion, no chest wall deformity HEART (CV/PV): No peripheral edema, no JVD. ABDOMEN: Soft, non-distended, no guarding. MSK: Normal ROM, no swelling/deformity to bilateral UEs or LEs, moving all extremities without weakness, no cyanosis, spine midline without tenderness, normal curvature. NEURO: Mental Status AAOx4 - alert to person, place, time, events No facial droop, no forehead involvement. Motor: No focal weakness - strength 5/5 in bilateral UEs and LEs, proximal and distal, symmetric. Sensory: sensation intact to light touch globally. Gait normal: patient ambulated without ataxia into ED room. PSYCH: euthymic, cooperative, pleasant, appropriate speech Course Vital Signs Vital signs: Vital Signs Temperature 36.9 C 07/27/24 19:28 Pulse 95 H 07/27/24 19:28 Respiratory Rate 18 07/27/24 19:28 Blood Pressure 149/88 H 07/27/24 19:28 Pulse Oximetry 98 07/27/24 19:28 Temperature 36.9 C 07/27/24 19:28 Temperature Source Oral 07/27/24 19:28 Pulse 95 H 07/27/24 19:28 Respiratory Rate 18 07/27/24 19:28 Blood Pressure 149/88 H 07/27/24 19:28 Blood Pressure Position Sitting 07/27/24 19:28 Pulse Oximetry 98 07/27/24 19:28 Oxygen Delivery Method Room Air 07/27/24 19:28 Oxygen Flow Rate 0 07/27/24 19:28 Pain Level 5 07/27/24 19:28 Medical Decision Making This dictation utilizes tvelj-by-awse dictation software and may contain unedited grammatical errors. 44 year-old female presents to ED today by POV/ambulating with a chief complaint of possible FB to eye- states she had a sleep study last night, and feels like some glue from the electrodes got in her eye while showering today. Quality described as right eye irritation, no radiation to discharge, loss of vision, blurry vision- patient has been rubbing her eye a lot today. Severity is described as severe. Palliating factors include nothing specific. Provoking factors include nothing specific. Patients' medical history: Noncontributory. Family and social history: Noncontributory. Pertinent exam findings / vital signs include OD has a mild corneal abrasion on fluorescein exam, otherwise vision grossly intact. Differential / pathologies of concern include corneal foreign body, corneal abrasion, unlikely periorbital cellulitis. Diagnostic studies of: -Fluorescein exam. Interventions of: -Erythromycin ointment to go. ED Course/Assessment/Plan: 44-year-old female presents after getting glue in her knee reportedly in the shower this morning washing of residual glue from electrothermal sleep study last night. There is a very minor corneal abrasion to the right eye and I did eligibility counselor her on use of erythromycin ointment and patching at night, strict return criteria for severe negative changes of vision signs of infection. Findings not consistent with periorbital cellulitis, retained foreign body of the eye. Disposition of corneal abrasion. Patient verbalized understanding of the plan and return to ED criteria and engaged in shared decision making. Medical Records Medical records reviewed: Yes I reviewed the patient's medical records. Quality:[facility] Health Related Social Needs: Health related social needs details . PFSH All Active Problems (Updated 07/27/24 @ 20:15 by BARRY Garvey) Corneal abrasion (Acute) Obesity (Chronic) Snoring (Acute) Fatigue (Acute) Pre-diabetes (Acute) Impacted cerumen, right ear (Acute) Hyperlipidemia (Acute) Hyperreflexia (Acute) Neuropathic pain (Acute) Asthma (Chronic) Incisional hernia of anterior abdominal wall without obstruction or gangrene (Acute) Anxiety with depression (Acute) Somatoform disorder (Acute) Unspecified disorder of eye movements (Acute) Learning disability (Acute) Chronic GERD (Acute) Hiatal hernia (Chronic) Carpal tunnel syndrome of right wrist (Acute) Chronic pain disorder (Chronic) Other specified polyneuropathies (Acute) 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) Increased body mass index (BMI) (Acute) Leg cramping (Acute) Firmness of abdomen (Acute) URI (upper respiratory infection) (Acute) Dysuria (Acute) Follicular lymphoma (Acute) COVID-19 (Acute) Medical History H/O migraine Dandy-Walker syndrome Verruca warts (infectious) Hydrocephalus s/p [employer]DL[employer] FI[employer] FIGH[employer] SPECIALIST shunting, revision at age 1 PTSD (post-traumatic stress disorder) Small bowel obstruction PCOS (polycystic ovarian syndrome) Surgical History H/O esophagogastroduodenoscopy (~05/09/10) [facility] [place] [employer] SPECIALIST shunt (~05/09/08) Last revision 2008 History of placement of ear tubes Family History Mother No problems noted. Father No problems noted. Maternal Grandfather No problems noted. Paternal Grandfather No problems noted. Maternal Grandmother No problems noted. Paternal Grandmother No problems noted. Social History Smoking/Tobacco Use Status: Never Second Hand Exposure: Yes Smoking risk assessment performed?: Yes Alcohol Intake: never Drug use: Never Substance use type: does not use Counseling given: No Counseling provided: none Household members: spouse Housing: other Pets and animals: Yes Pets and animals: cat(s) How often do you talk on the phone with friends or family?: three or more times per week How often do you get together with friends or relatives?: three or more times per week Do you belong to any clubs or organized social groups?: no Panel score (0-1 are the most socially isolated patients): 1 What type of physical activity do you participate in: none Do you feel safe at home: Yes Do you feel safe in your relationship?: Yes
[2024-07-27] MEDS: Fluorescein STRIPS 100/BOX 1 MG OP (20:01)
[2024-07-27] MEDS: Tetracaine 0.5% 4 ML BTL OP (20:02)
[2024-07-27] MEDS: Erythromycin Ophth Oint 3.5 GM TUBE OD (20:25)
[2024-07-27 20:30] VITALS: RESP 18
== END 2024-07-27 20:31 | disposition home or self-care (01) ==
PROVIDERS: Emergency Provider Physician Assistant; PCP Nurse Practitioner Family
DX: S05.01XA Injury of conjunctiva and corneal abrasion without foreign body, right eye, initial encounter (principal); E78.5 Hyperlipidemia, unspecified; X58.XXXA Exposure to other specified factors, initial encounter
CPT/HCPCS: 99283

== ENCOUNTER 2024-09-03 14:15 | Outpatient (REF) | payer MEDICARE, SELFPAY ==
[2024-09-03 12:55] LABS: Bilirubin Negative (Negative); Blood Negative (Negative); Clarity Clear (Clear); Glucose Negative (Negative); Ketones Negative (Negative); Leukocyte Esterase Negative (Negative); Nitrite Negative (Negative); Specific Gravity 1.015 (1.005-1.025); Urobilinogen 0.2 mg/dL (Up to 0.2); pH 6.5 (5-8)
== END 2024-09-03 14:16 | disposition home or self-care (01) ==
LOC: LBN 14:15
PROVIDERS: PCP Nurse Practitioner Family; Visit Provider Nurse Practitioner Family
DX: R30.0 Dysuria (principal)
CPT/HCPCS: 81003

== ENCOUNTER 2024-10-04 03:15 | Outpatient (CLI) | payer MEDICARE, SELFPAY ==
[2024-10-04 12:34] LABS: ALT 31 U/L (14-59); AST 16 U/L (15-37); Albumin 3.7 g/dL (3.4-5.0); Alkaline Phosphatase 134 U/L (46-116); Anion Gap 7.3 mmol/L (3-11); BUN 20 mg/dL (7-18); Bilirubin, Total 0.3 mg/dL (0.2-1.0); CO2 28.7 mmol/L (21.0-32.0); CREATININE 0.7 mg/dL (0.55-1.02); Calcium 8.9 mg/dL (8.5-10.1); Calculated LDL 192 mg/dL (<100); Chloride 104 mmol/L (98-107); Cholesterol 264 mg/dL (<200); Estimated GFR 107.95 (mL/min/1.73m2); Glucose 98 mg/dL (74-106); HDL Cholesterol 55 mg/dL (>or=50); Magnesium 1.9 mg/dL (1.8-2.4); Potassium 3.9 mmol/L (3.5-5.1); Sodium 140 mmol/L (136-145); Total Protein 7.2 g/dL (6.4-8.2); Triglyceride 88 mg/dL (<150)
== END 2024-10-04 03:16 | disposition home or self-care (01) ==
LOC: LOS 03:15
PROVIDERS: PCP Nurse Practitioner Family; Visit Provider Nurse Practitioner Family
DX: R73.03 Prediabetes (principal); G89.4 Chronic pain syndrome; Z13.220 Encounter for screening for lipoid disorders; R53.83 Other fatigue
CPT/HCPCS: 36415; 80053; 80061; 83735

== ENCOUNTER 2024-11-03 03:01 | Emergency (ER) | payer MEDICARE, SELFPAY ==
[2024-11-03 03:05] VITALS: BP 150/56; PULSE 90; RESP 20; TEMP 36.7; O2SAT 98
[2024-11-03 03:09] VITALS: BP 150/56; PULSE 90; RESP 20; TEMP 36.7; O2SAT 98
--- NOTE | 2024-11-03 03:27 | W.ED.GENAD ---
Discharge Plan Disposition Patient Disposition: Home Condition: Good Discharge Details Clinical Impression: Headache, HOTEL NIGHT AUDITOR (ventriculoperitoneal) shunt status Primary Care Provider: Wallace Negron ED Provider: Marium Fairbanks Home Meds and New Rx's Prescriptions: Continued metformin 500 mg tablet 500 mg PO BID Qty: 180 3RF prednisone 20 mg tablet 40 mg PO DAILY Qty: 6 0RF benzonatate 100 mg capsule 100 mg PO Q6H PRN (Reason: cough) Qty: 20 0RF albuterol sulfate 90 mcg/actuation HFA aerosol inhaler 1 puff inhalation ONCE PRN (Reason: bronchospasm) Qty: 8.5 5RF Rx Instructions: Every 4 hours PRN gabapentin 300 mg capsule 300 mg PO TID Qty: 270 3RF esomeprazole magnesium 40 mg capsule,delayed release(DR/EC) 40 mg PO BID Qty: 180 3RF fluoxetine 20 mg capsule 40 mg PO DAILY Qty: 180 3RF lorazepam 0.5 mg tablet 0.5 mg PO TID PRN (Reason: anxiety) Qty: 56 0RF acetaminophen-codeine 300-30 mg tablet 1 tab PO TID PRN (Reason: pain) Qty: 84 0RF nystatin 100,000 unit/mL suspension 400,000 unit PO QID Qty: 473 0RF Rx Instructions: Swish in mouth and then swallow baclofen 20 mg tablet 20 mg PO TID Qty: 90 2RF Discharge Instructions Instructions: Hydrocephalus (DC), Headache, Adult ED Additional Instructions: Call your primary care doctor in the morning to schedule an appointment for within the next 72 hours to followup on your visit here. Return to the emergency department for new or worsening symptoms including if your headache returns and does not improve with tylenol at home, you develop nausea or vomiting, numbness, weakness, vision changions, vertigo, fever, redness or swelling at your shunt site, or if you have any other concerns. Referrals: Wallace Negron, NEPHROLOGY SOCIAL WORKER [Primary Care Provider, Medicine] HPI General Mode of arrival: ambulatory. Date/Time Provider Initiated Documentation: 11/03/24 03:03. Limitations to Documentation: no limitations. Information obtained by: patient and family. HPI Narrative: 44yo F with hx migraines, Dandy-Walker syndrome, HOTEL NIGHT AUDITOR shunt in place, presenting for headache. Dull pressure in her whole head started yesterday morning around 9am, moderate in severity, constant, waxing and waning, not maximal at onset. Tried tylenol at home without improvement. Also feels a 'burning' sensation and warmth in her face. No fevers, rash, nausea, vomiting, numbness, weakness, veritgo, vision changes, auditory changes, or other concerns. Related Data Home Medications ?Medication ?Instructions ?Recorded ?Confirmed albuterol sulfate 90 mcg/actuation 1 puff inhalation ONCE PRN 06/08/23 11/03/24 aerosol inhaler bronchospasm #8.5 grams gabapentin 300 mg capsule 300 mg PO TID #270 caps 12/21/23 11/03/24 esomeprazole magnesium 40 mg 40 mg PO BID #180 caps 02/06/24 11/03/24 capsule,delayed release fluoxetine 20 mg capsule 40 mg (2 x 20 mg) PO DAILY #180 03/07/24 11/03/24 caps metformin 500 mg tablet 500 mg PO BID #180 tabs 04/11/24 11/03/24 acetaminophen 300 mg-codeine 30 mg 1 tab PO TID PRN pain #84 tabs 10/15/24 11/03/24 tablet lorazepam 0.5 mg tablet 0.5 mg PO TID PRN anxiety #56 tabs 10/15/24 11/03/24 benzonatate 100 mg capsule 100 mg PO Q6H PRN cough #20 caps 10/16/24 11/03/24 prednisone 20 mg tablet 40 mg (2 x 20 mg) PO DAILY #6 tabs 10/16/24 11/03/24 nystatin 100,000 unit/mL oral 400,000 unit (4 mL) PO QID #473 mL 10/18/24 11/03/24 suspension baclofen 20 mg tablet 20 mg PO TID #90 tabs 10/29/24 11/03/24 Previous Rx's ?Medication ?Instructions ?Recorded albuterol sulfate 90 mcg/actuation 1 puff inhalation ONCE PRN 06/08/23 aerosol inhaler bronchospasm #8.5 grams gabapentin 300 mg capsule 300 mg PO TID #270 caps 12/21/23 esomeprazole magnesium 40 mg 40 mg PO BID #180 caps 02/06/24 capsule,delayed release fluoxetine 20 mg capsule 40 mg (2 x 20 mg) PO DAILY #180 03/07/24 caps metformin 500 mg tablet 500 mg PO BID #180 tabs 04/11/24 acetaminophen 300 mg-codeine 30 mg 1 tab PO TID PRN pain #84 tabs 10/15/24 tablet lorazepam 0.5 mg tablet 0.5 mg PO TID PRN anxiety #56 tabs 10/15/24 benzonatate 100 mg capsule 100 mg PO Q6H PRN cough #20 caps 10/16/24 prednisone 20 mg tablet 40 mg (2 x 20 mg) PO DAILY #6 tabs 10/16/24 nystatin 100,000 unit/mL oral 400,000 unit (4 mL) PO QID #473 mL 10/18/24 suspension baclofen 20 mg tablet 20 mg PO TID #90 tabs 10/29/24 Allergies Allergy/AdvReac Type Severity Reaction Status Date / Time cephalexin monohydrate (From Allergy Severe Anaphylaxsi Verified 10/16/24 14:08 Keflex) s nitrofurantoin (From Allergy Severe Anaphylaxsi Verified 10/16/24 14:08 Macrobid) s Sulfa (Sulfonamide Allergy Severe Anaphylaxsi Verified 10/16/24 14:08 Antibiotics) s topiramate (From Topamax) Allergy Severe Anaphylaxsi Verified 10/16/24 14:08 s ibuprofen Allergy Mild Hives Verified 10/16/24 14:08 cefazolin Allergy Unknown Other (See Verified 10/16/24 14:08 Comment) celecoxib (From Celebrex) Allergy Unknown Hives Verified 10/16/24 14:08 duloxetine (From Cymbalta) Allergy Unknown Swelling/Ed Verified 10/16/24 14:08 bert naproxen Allergy Unknown Hives Verified 10/16/24 14:08 pregabalin (From Lyrica) Allergy Unknown Swelling/Edema, Verified 10/16/24 14:08 tongue swelling, angioedema tramadol Allergy Unknown unknown Verified 10/16/24 14:08 wheat Allergy Unknown unknown Verified 10/16/24 14:08 General Stated Complaint: Headache NICOLE: 3 Review of Systems Narrative: see HPI Exam Narrative Exam Narrative: General: Alert, well appearing, well nourished, in no acute distress. Head: Normocephalic, atraumatic. No temporal tenderness. Shunt site without erythema or tenderness. Neck: Trachea midline, ?Neck supple. No neck stiffness. Negative Kernig's. Negative brudsinski. ENT: ?MMM.? No oropharygeal lesions or exudate. Cardiac: ?RRR, no murmurs appreciated Resp: No respiratory distress. CTAB. Abd: ?Soft, on-distended, nontender Neuro: ? GCS 15.? PERRL.? EOMI.? Fluent speech, no dysarthria. Motor- 5/5 strength symmetric bilateral upper and lower extremities including shoulder abductors/adductors, elbow flexors/extensors, wrist flexors/extensors, finger abductors/adductors, hipflexors/extensors, knee flexors/extensors, ankle dorsiflexors and planter flexors. Sensation- ?Intact to light touch and symmetric multiple dermatomes including upper and lower extremities Coordination- No dysmetria on finger to nose Reflexes- 2/4 achilles & patellar, no clonus Gait/station: ?Normal stance.? No truncal ataxia. Steady gait with equal normal steps CRANIAL NERVES: II: Pupils equal and reactive, III, IV, : EOM intact, no gaze preference or deviation, no nystagmus. V: normal sensation in V1, V2, and V3 segments bilaterally VII: no asymmetry, no nasolabial fold flattening VIII: normal hearing to speech IX, X: normal palatal elevation, no uvular deviation XI: 5/5 head turn and 5/5 shoulder shrug bilaterally XII: midline tongue protrusion Course Vital Signs Vital signs: Vital Signs Temperature 36.7 C 11/03/24 03:05 Pulse 90 11/03/24 03:05 Respiratory Rate 20 11/03/24 03:05 Blood Pressure 150/56 H 11/03/24 03:05 Pulse Oximetry 98 11/03/24 03:05 Temperature 36.7 C 11/03/24 03:09 Pulse 90 11/03/24 03:09 Respiratory Rate 20 11/03/24 03:09 Blood Pressure 150/56 H 11/03/24 03:09 Blood Pressure Position Sitting 11/03/24 03:09 Pulse Oximetry 98 11/03/24 03:09 Medical Decision Making 44yo F with hx migraines, Dandy-Walker syndrome, HOTEL NIGHT AUDITOR shunt in place, presenting for headache x 1 day. Headache does not feel like her prior episode of shunt failure, but also does not feel like her typical headaches. Vital signs reassuring on arrival. Normal neurologic exam and no tenderness over shunt site. History and exam not suggestive of ICH, SAH, giant cell arteritits, meningitis, encephalitis. No erythema, swelling, or tenderness at shunt site and no fevers, low suspicion for infection. Must consider other shunt complications; will evaluate with CT and shunt series as well as basic labs. Given tylenol and compazine for symptoms. On reassessment headache persists; will add benadyrl, droperidol, and dexamethasone. Labs reviewed as below, CBC reassuring with no leukocytosis or anemia, CMP with no actionable abnormalities, Mg normal. CT head independently reviewed; grossly unchanged from most recent prior on my view, radiology read below with no acute findings. Shunt series with intact shunt. On subsequent reassessment patient reports headache has resolved. No indication for emergent neurosurgical evaluation at this time. Patient would like to go home which is reasonable with her improved symptoms and reassuring workup here. Advised to followup closely with her PCP with low threshold to return to the emergency department should her symptoms return. Discharged home; discharge instructions and return precautions were reviewed with patient who verbalized understanding. All questions were answered and she is in full agreement with the plan. Imaging Data Radiologic Study: Imaging: X-Ray and CT Scan Radiologist's impression: CT: IMPRESSION: 1. No acute intracranial findings. 2. Stable configuration of the intracranial parenchyma consistent with Dandy-Walker Shunt series: IMPRESSION: Intact HOTEL NIGHT AUDITOR shunt. Lab Data Lab results reviewed: Yes I reviewed the patient's lab results. Labs: Laboratory Tests Range/Units 11/03/ 03:28 WBC (4.4-10.8) 10^3/uL 7.69 RBC (3.93-5.22) 10^6/uL 4.69 Hgb (11.2-15.7) g/dL 13.2 Hct (36.0-46.0) % 41.0 MCV (80-95) fL 87 MCH (27.0-33.0) pg 28.1 MCHC (32.0-36.0) % 32.2 RDW (11.7-14.6) % 13.6 Plt Count (130-400) 10^3/uL 283 MPV (8.0-11.0) fL 10.4 Immature Gran % % 1.0 Neutrophils % % 75.3 Lymphocytes % % 14.3 Monocytes % % 7.3 Eosinophils % % 1.6 Basophils % % 0.5 Nucleated RBC % (0.0-0.3) % 0.0 Absolute Neutrophils (1.2-6.7) 10^3/uL 5.79 Absolute Lymphocytes (1.2-3.4) 10^3/uL 1.10 L Absolute Monocytes (0.1-0.8) 10^3/uL 0.56 Absolute Eosinophils (0.0-0.7) 10^3/uL 0.12 Absolute Basophils (0.0-0.2) 10^3/uL 0.04 Sodium (136-145) mmol/L 142 Potassium (3.5-5.1) mmol/L 3.9 Chloride (98-107) mmol/L 105 Carbon Dioxide (21.0-32.0) mmol/L 28.2 Anion Gap (3-11) mmol/L 8.8 BUN (7-18) mg/dL 11 Creatinine (0.55-1.02) mg/dL 0.8 Est GFR (CKD-EPI 2020) (mL/min/1.73m2) 91.97 Glucose (74-106) mg/dL 124 H Calcium (8.5-10.1) mg/dL 8.9 Magnesium (1.8-2.4) mg/dL 1.9 Total Bilirubin (0.2-1.0) mg/dL 0.5 AST (15-37) U/L 16 ALT (14-59) U/L 34 Alkaline Phosphatase (46-116) U/L 138 H Total Protein (6.4-8.2) g/dL 6.9 Albumin (3.4-5.0) g/dL 3.6 Serum HCG, Qual Negative Quality:SDOH Health Related Social Needs: Health related social needs details . PFSH All Active Problems (Updated 11/03/24 @ 05:16 by Marium Fairbanks MD) HOTEL NIGHT AUDITOR (ventriculoperitoneal) shunt status (Acute) Headache (Acute) Obesity (Chronic) Snoring (Acute) Fatigue (Acute) Pre-diabetes (Acute) Impacted cerumen, right ear (Acute) Hyperlipidemia (Acute) Hyperreflexia (Acute) Neuropathic pain (Acute) Asthma (Chronic) Incisional hernia of anterior abdominal wall without obstruction or gangrene (Acute) Anxiety with depression (Acute) Somatoform disorder (Acute) Unspecified disorder of eye movements (Acute) Learning disability (Acute) Chronic GERD (Acute) Hiatal hernia (Chronic) Carpal tunnel syndrome of right wrist (Acute) Chronic pain disorder (Chronic) Other specified polyneuropathies (Acute) 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) Increased body mass index (BMI) (Acute) Leg cramping (Acute) Firmness of abdomen (Acute) URI (upper respiratory infection) (Acute) Dysuria (Acute) Follicular lymphoma (Acute) COVID-19 (Acute) Medical History H/O migraine Dandy-Walker syndrome Verruca warts (infectious) Hydrocephalus s/p HOTEL NIGHT AUDITOR shunting, revision at age 1 PTSD (post-traumatic stress disorder) Small bowel obstruction PCOS (polycystic ovarian syndrome) Surgical History H/O esophagogastroduodenoscopy (~05/09/10) [facility] [place] S/P HOTEL NIGHT AUDITOR shunt (~05/09/08) Last revision 2008 History of placement of ear tubes Family History Mother No problems noted. Father No problems noted. Maternal Grandfather No problems noted. Paternal Grandfather No problems noted. Maternal Grandmother No problems noted. Paternal Grandmother No problems noted. Social History Smoking/Tobacco Use Status: Never Second Hand Exposure: Yes Smoking risk assessment performed?: Yes Alcohol Intake: never Drug use: Never Substance use type: does not use Counseling given: No Counseling provided: none Household members: spouse Housing: other Pets and animals: Yes Pets and animals: cat(s) How often do you talk on the phone with friends or family?: three or more times per week How often do you get together with friends or relatives?: three or more times per week Do you belong to any clubs or organized social groups?: no Panel score (0-1 are the most socially isolated patients): 1 What type of physical activity do you participate in: none Do you feel safe at home: Yes Do you feel safe in your relationship?: Yes
[2024-11-03 03:38] LABS: Abs Immature Grans 0.08 10^3/uL (0.0-0.06); Absolute Basophil Count 0.04 10^3/uL (0.0-0.2); Absolute Eosinophil Count 0.12 10^3/uL (0.0-0.7); Absolute Monocyte Count 0.56 10^3/uL (0.1-0.8); Absolute Neutrophil Count 5.79 10^3/uL (1.2-6.7); Basophils % 0.5 %; Eosinophils % 1.6 %; HGB 13.2 g/dL (11.2-15.7); Lymphocytes % 14.3 %; MCH 28.1 pg (27.0-33.0); MCHC 32.2 % (32.0-36.0); MCV 87 fL (80-95); MPV 10.4 fL (8.0-11.0); Monocytes % 7.3 %; Neutrophils % 75.3 %; Platelet Count 283 10^3/uL (130-400); RBC 4.69 10^6/uL (3.93-5.22); RDW 13.6 % (11.7-14.6); RDW-SD 43.7 fL; WBC 7.69 10^3/uL (4.4-10.8)
[2024-11-03] MEDS: Prochlorperazine 10 MG/2 ML VIAL IVP (03:42)
[2024-11-03] MEDS: Acetaminophen 500 MG TAB 1000 MG PO (03:42)
[2024-11-03 03:50] LABS: ALT 34 U/L (14-59); AST 16 U/L (15-37); Albumin 3.6 g/dL (3.4-5.0); Alkaline Phosphatase 138 U/L (46-116); Anion Gap 8.8 mmol/L (3-11); BUN 11 mg/dL (7-18); Bilirubin, Total 0.5 mg/dL (0.2-1.0); CO2 28.2 mmol/L (21.0-32.0); CREATININE 0.8 mg/dL (0.55-1.02); Calcium 8.9 mg/dL (8.5-10.1); Chloride 105 mmol/L (98-107); Estimated GFR 91.97 (mL/min/1.73m2); Glucose 124 mg/dL (74-106); Magnesium 1.9 mg/dL (1.8-2.4); Potassium 3.9 mmol/L (3.5-5.1); Sodium 142 mmol/L (136-145); Total Protein 6.9 g/dL (6.4-8.2)
[2024-11-03 03:53] LABS: HCG Qual (Serum) Negative
--- NOTE | 2024-11-03 04:11 | DI.RAD_ITS ---
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 TECHNIQUE: 2D digital imaging was performed. COMPARISON: CT CT NECK CHEST ABD PEL W from 07/19/2023 Findings: SKULL: Unremarkable. No destructive osseous lesion seen. SHUNT CATHETER: Visualized portions of shunt catheter from the level of the skull to the level of the abdomen is continuous without evidence of kink or break. Right-sided ventricular shunt noted. The tubing extends along the right side of the neck which appears unchanged compared with previous CT. The tubing extends along the anterior right aspect of the chest into the abdomen. Additional thicker tubing is noted in the midline of the lower chest and abdomen which is residual old tubing. LUNGS: Clear. No pleural abnormality seen. HEART: Normal. MEDIASTINUM: Normal. BOWEL GAS PATTERN: Nondistended bowel loops. No air-fluid levels seen. ABNORMAL COLLECTIONS OF AIR: No abnormal collection of air. No pneumoperitoneum. CALCIFICATIONS: None. No radiopaque renal, ureteral, or bladder calcification. IMPRESSION: 1. Right-sided ventricular peritoneal shunt appears intact. 2. No acute pulmonary or abdominal findings. The preliminary [facility] report was reviewed. DATA REPOSITORY: RADIATION DOSE DELIVERED:
--- NOTE | 2024-11-03 04:11 | DI.CT_ITS ---
Exam(s) CT HEAD WO EXAM: CT HEAD WO CLINICAL HISTORY: headache, A R COLLECTIONS REP shunt. TECHNIQUE: Imaging Protocol: Axial computed tomography images with coronal and sagittal reformatted images were created and reviewed COMPARISON: CT CT HEAD CERVICAL SPINE WO from 07/18/2018 FINDINGS: Ventricles and Extra axial spaces: Right-sided ventricular shunt in stable position. Ventricles appear unchanged. Large CSF collection and posterior fossa. Hemorrhage: None. Cerebral parenchyma: No evidence of acute infarct or mass. Congenital absence of the corpus callosum. Midline shift: None. Brainstem/Cerebellum: Large CSF collection in the posterior fossa. Small bilateral cerebellar hemispheres an absence cerebellar tonsils, consistent with Dandy-Walker malformation. Bones: No skull or facial fractures. Right-sided ventricular shunt. Visualized Paranasal sinuses:Mucous retention cyst in right maxillary sinus. Mastoids: Clear. Soft Tissues: Unremarkable. ORBITS: There is atrophy of the optic nerves which appears chronic. PITUITARY: Not enlarged. IMPRESSION: No acute intracranial process. Stable appearance of Dandy-Walker malformation, agenesis of the corpus callosum and positioning of ventricular shunt. The preliminary [facility] report was reviewed. RADIATION DOSE DELIVERED: Total DLP DATA REPOSITORY: All CT scans at this facility are submitted to the National Radiology Data Registry (NRDR) Dose Index Registry (DIR) with the [employer] (A[employer]). RADIATION OPTIMIZATION: All CT scans at this facility use at least one of these dose optimization techniques: automated exposure control; mA and/or kV adjustment per patient size (includes targeted exams where dose is matched to clinical indication); or iterative reconstruction.
[2024-11-03] MEDS: diphenhydrAMINE 50 MG/ML VIAL IVP (04:43)
[2024-11-03] MEDS: Dexamethasone 4 MG/ML VIAL IVP (04:45)
[2024-11-03] MEDS: Droperidol 5 MG/2 ML VIAL 2.5 MG IVP (04:47)
--- NOTE | 2024-11-03 05:01 | DI.[facility]_ITS ---
PROCEDURE INFORMATION: Exam: CT Head Without Contrast Exam date and time: 11/03/2024 3:44 AM Age: 44 years old Clinical indication: Pain; Headache not specified; Prior surgery; Surgery date: 6+ months; Surgery type: Shunt TECHNIQUE: Imaging protocol: Computed tomography of the head without contrast. Radiation optimization: All CT scans at this facility use at least one of these dose optimization techniques: automated exposure control; mA and/or kV adjustment per patient size (includes targeted exams where dose is matched to clinical indication); or iterative reconstruction. COMPARISON: CT HEAD CERVICAL SPINE WO 07/18/2018 7:49 AM FINDINGS: Tubes, catheters and devices: Stable positioning of the right superior parietal ventriculostomy catheter. Brain: Stable large cystic region within the posterior fossa. Congenital absence of the corpus callosum. Calero-white matter differentiation is maintained. Cerebral ventricles: Stable configuration. Paranasal sinuses: Visualized sinuses are unremarkable. No fluid levels. Mastoid air cells: Visualized mastoid air cells are well aerated. Bones: Unremarkable. No acute fracture. Soft tissues: Unremarkable. IMPRESSION: 1. No acute intracranial findings. 2. Stable configuration of the intracranial parenchyma consistent with Dandy-Walker. Dictated and Authenticated by: Brent Zelaya MD. Orderin Tiki Causey MD
--- NOTE | 2024-11-03 05:01 | DI.[facility]_ITS ---
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 COMPARISON: CT HEAD WO 11/03/2024 3:44 AM FINDINGS: Tubes, catheters and devices: Right superior parietal ventriculostomy catheter seen, it appears intact. A thicker appearing catheter is seen projecting over the chest/abdomen, appears to represent abandoned catheter from recent cross-sectional imaging. Paranasal sinuses: Visualized paranasal sinuses are well aerated. Lungs: No consolidations. Gastrointestinal tract: Bowel is unremarkable. Bones/joints: Normal. No fracture. No dislocation. Soft tissues: Unremarkable. 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 Dictated and Authenticated by: Brent Zelaya MD. Orderin Tiki Causey MD
[2024-11-03 05:25] VITALS: BP 150/56; PULSE 90; RESP 20; TEMP 36.7; O2SAT 98
--- NOTE | 2024-11-03 07:43 | NUR.NOTE ---
Nursing Note: Pt called stating that she was here at 0300 this morning and was given medications for a headache. She reported that the compazine is making her feel anxious. I explained that unfortunately, this is a common side effect of that medication and if she was sent home with some that she should not take any more. She reported that the headache was back. Looking at her chart, she was given Apap, benadryl, and medications for nausea. I asked if she was able to take ibuprofen, she stated no. I told her that unfortunately because she is unable to take more tylenol safely at this time, she could try non pharmacological interventions such as cool compresses, staying in a cool and dark room, hydrate, and other interventions. She is going to try these.
== END 2024-11-03 05:25 | disposition home or self-care (01) ==
PROVIDERS: Emergency Provider Student in an Organized Health Care Education/Training Program; PCP Nurse Practitioner Family
DX: R51.9 Headache, unspecified (principal); F41.9 Anxiety disorder, unspecified; Q03.1 Atresia of foramina of Magendie and Luschka; Z98.2 Presence of cerebrospinal fluid drainage device
CPT/HCPCS: 36415; 80053; 93005; 96361; 96374; 96375; 99284; 99285; 70360; 70450; 71045; 72050; 74018; 83735; 84484; 84703; 85025; 85379; 93010; J0780; J1100; J1200; J1790; J2470

== ENCOUNTER 2024-11-03 12:27 | Emergency (ER) | payer MEDICARE, SELFPAY ==
[2024-11-03] VITALS (37 sets, daily range): BP systolic 137–160; BP diastolic 69–100; PULSE 101–132; RESP 16–20; TEMP 36.6–36.7; O2SAT 97–98
--- NOTE | 2024-11-03 12:30 | RT.EKG_ITS ---
APPROVED REPORT Exam: Resting ECG Reason for Exam: chest pain Patient Location: E HR:128 bpm ECG Measurements Heart Rate 128 AXIS FL 125 P 66 QRSd 76 QRS 55 QT 323 T -17 QTc 472 Conclusion Sinus tachycardia, rate 128 No interval abnormalities No STEMI T wave inversions lead III, unchanged from priors
--- NOTE | 2024-11-03 13:12 | W.ED.GENAD ---
Discharge Plan Discharge Details Chief Complaint: Chest Pain Clinical Impression: Withdrawal syndrome, Anxiety with depression Primary Care Provider: Wallace Negron ED Provider: Rajni Moses Home Meds and New Rx's Prescriptions: No Action metformin 500 mg tablet 500 mg PO BID Qty: 180 3RF prednisone 20 mg tablet 40 mg PO DAILY Qty: 6 0RF benzonatate 100 mg capsule 100 mg PO Q6H PRN (Reason: cough) Qty: 20 0RF albuterol sulfate 90 mcg/actuation HFA aerosol inhaler 1 puff inhalation ONCE PRN (Reason: bronchospasm) Qty: 8.5 5RF Rx Instructions: Every 4 hours PRN gabapentin 300 mg capsule 300 mg PO TID Qty: 270 3RF esomeprazole magnesium 40 mg capsule,delayed release(DR/EC) 40 mg PO BID Qty: 180 3RF fluoxetine 20 mg capsule 40 mg PO DAILY Qty: 180 3RF lorazepam 0.5 mg tablet 0.5 mg PO TID PRN (Reason: anxiety) Qty: 56 0RF acetaminophen-codeine 300-30 mg tablet 1 tab PO TID PRN (Reason: pain) Qty: 84 0RF nystatin 100,000 unit/mL suspension 400,000 unit PO QID Qty: 473 0RF Rx Instructions: Swish in mouth and then swallow baclofen 20 mg tablet 20 mg PO TID Qty: 90 2RF Discharge Instructions Instructions: Baclofen Additional Instructions: You were seen in the emergency department today for evaluation of chest pain and feelings of anxiety. In our department you had an EKG that was reassuring, and had normal laboratory studies with no sign of damage to your heart or heart attack. You are likely experiencing some symptoms associated with withdrawal from your baclofen, as you missed 2 doses in the setting of this morning's illness. It is safe for you to resume all of your medications as prescribed, and continue to follow-up with your primary care provider for management of your chronic conditions. Thank you for allowing us to be part of your care. HPI General Mode of arrival: ambulatory. Date/Time Provider Initiated Documentation: 11/03/24 12:29. Limitations to Documentation: no limitations. Information obtained by: patient, family and old records reviewed. HPI Narrative: This is a 44-year-old female patient with a past medical history significant for Dandy-Walker syndrome, CHILD CARE ASSISTANT shunt, who was seen in our emergency department overnight for headache. She is returning with complaints of anxiety after medication administration and chest pain. She reports that immediately upon receiving this medication she did have some symptoms of anxiety, and states that despite being administered Benadryl she felt a little jittery. She went home and took a nap and when she awoke she still felt anxiety, prompting her to seek care. She is experiencing chest pain localized over the left side of the chest that does not move nor change with deep breath or palpation. She did have a chest x-ray performed during her initial visit that did not show any obvious cardiopulmonary abnormalities. The patient reports that she is otherwise feeling improved, her anxiety and sweatiness is her primary concern. Related Data Home Medications ?Medication ?Instructions ?Recorded ?Confirmed albuterol sulfate 90 mcg/actuation 1 puff inhalation ONCE PRN 06/08/23 11/03/24 aerosol inhaler bronchospasm #8.5 grams gabapentin 300 mg capsule 300 mg PO TID #270 caps 12/21/23 11/03/24 esomeprazole magnesium 40 mg 40 mg PO BID #180 caps 02/06/24 11/03/24 capsule,delayed release fluoxetine 20 mg capsule 40 mg (2 x 20 mg) PO DAILY #180 03/07/24 11/03/24 caps metformin 500 mg tablet 500 mg PO BID #180 tabs 04/11/24 11/03/24 acetaminophen 300 mg-codeine 30 mg 1 tab PO TID PRN pain #84 tabs 10/15/24 11/03/24 tablet lorazepam 0.5 mg tablet 0.5 mg PO TID PRN anxiety #56 tabs 10/15/24 11/03/24 benzonatate 100 mg capsule 100 mg PO Q6H PRN cough #20 caps 10/16/24 11/03/24 prednisone 20 mg tablet 40 mg (2 x 20 mg) PO DAILY #6 tabs 10/16/24 11/03/24 nystatin 100,000 unit/mL oral 400,000 unit (4 mL) PO QID #473 mL 10/18/24 11/03/24 suspension baclofen 20 mg tablet 20 mg PO TID #90 tabs 10/29/24 11/03/24 Previous Rx's ?Medication ?Instructions ?Recorded albuterol sulfate 90 mcg/actuation 1 puff inhalation ONCE PRN 06/08/23 aerosol inhaler bronchospasm #8.5 grams gabapentin 300 mg capsule 300 mg PO TID #270 caps 12/21/23 esomeprazole magnesium 40 mg 40 mg PO BID #180 caps 02/06/24 capsule,delayed release fluoxetine 20 mg capsule 40 mg (2 x 20 mg) PO DAILY #180 03/07/24 caps metformin 500 mg tablet 500 mg PO BID #180 tabs 04/11/24 acetaminophen 300 mg-codeine 30 mg 1 tab PO TID PRN pain #84 tabs 10/15/24 tablet lorazepam 0.5 mg tablet 0.5 mg PO TID PRN anxiety #56 tabs 10/15/24 benzonatate 100 mg capsule 100 mg PO Q6H PRN cough #20 caps 10/16/24 prednisone 20 mg tablet 40 mg (2 x 20 mg) PO DAILY #6 tabs 10/16/24 nystatin 100,000 unit/mL oral 400,000 unit (4 mL) PO QID #473 mL 10/18/24 suspension baclofen 20 mg tablet 20 mg PO TID #90 tabs 10/29/24 Allergies Allergy/AdvReac Type Severity Reaction Status Date / Time cephalexin monohydrate (From Allergy Severe Anaphylaxsi Verified 11/03/24 12:36 Keflex) s nitrofurantoin (From Allergy Severe Anaphylaxsi Verified 11/03/24 12:36 Macrobid) s Sulfa (Sulfonamide Allergy Severe Anaphylaxsi Verified 11/03/24 12:36 Antibiotics) s topiramate (From Topamax) Allergy Severe Anaphylaxsi Verified 11/03/24 12:36 s ibuprofen Allergy Mild Hives Verified 11/03/24 12:36 cefazolin Allergy Unknown Other (See Verified 11/03/24 12:36 Comment) celecoxib (From Celebrex) Allergy Unknown Hives Verified 11/03/24 12:36 duloxetine (From Cymbalta) Allergy Unknown Swelling/Ed Verified 11/03/24 12:36 bert naproxen Allergy Unknown Hives Verified 11/03/24 12:36 pregabalin (From Lyrica) Allergy Unknown Swelling/Edema, Verified 11/03/24 12:36 tongue swelling, angioedema tramadol Allergy Unknown unknown Verified 11/03/24 12:36 wheat Allergy Unknown unknown Verified 11/03/24 12:36 General Stated Complaint: Chest Pain NICOLE: 3 Exam Narrative Exam Narrative: Gen: Awake and alert, in no apparent distress HEENT: Non-icteric sclera Neck: Supple Lungs: No apparent respiratory distress, normal respiratory effort. Lung sounds clear and equal bilaterally without wheezes, rhonchi, rales CV: Appears well perfused, heart with tachycardic rate but regular rhythm, strong distal pulses Abdomen: Non-distended MSK: Moves 4 extremities without apparent limitation in ROM Skin: Visualized skin without rashes, cyanosis. Neuro: Normal Gait, no obvious focal deficits or facial asymmetry. Speaks in full, clear sentences. Psych: Appropriate for situation. Course Vital Signs Vital signs: Vital Signs Temperature 36.7 C 11/03/24 12:37 Pulse 128 H 11/03/24 12:37 Respiratory Rate 16 11/03/24 12:37 Blood Pressure 137/85 11/03/24 12:37 Pulse Oximetry 98 11/03/24 12:37 Temperature 36.7 C 11/03/24 12:37 Temperature Source Oral 11/03/24 12:37 Pulse 128 H 11/03/24 12:37 Respiratory Rate 16 11/03/24 12:37 Blood Pressure 137/85 11/03/24 12:37 Blood Pressure Position Sitting 11/03/24 12:37 Pulse Oximetry 98 11/03/24 12:37 Oxygen Delivery Method Room Air 11/03/24 12:37 Oxygen Flow Rate 0 11/03/24 12:37 Pain Level 4 11/03/24 12:37 Medical Decision Making This is a 44-year-old female patient presenting for evaluation of anxiety, chest pain, and sweating. My differential includes but is not limited to ACS including STEMI, NSTEMI, unstable angina, certainly considered arrhythmia, pericarditis/myocarditis, aortic pathology. Considered medication effect as droperidol can cause anxiety and akathisia, etc. Considered pulmonary abnormalities including pneumonia, bronchitis, pleural effusion, pulmonary edema, reactive airway disease, pneumothorax, though these are not evidence on physical examination nor on the imaging studies performed by the prior provider. The patient has no pleuritic component to her pain nor evidence of DVT on physical examination to significantly increase my concern for pulmonary embolism. No GI symptoms or vomiting to suggest Boerhaave's, esophagitis, peptic ulcer disease, pancreatitis. Considered musculoskeletal pathologies including costochondritis, chest wall pain. We obtained an EKG, which I reviewed, which shows a sinus tachycardia without evidence of ischemia, interval abnormality, or ectopy. We will obtain laboratory studies to include CBC, CMP, magnesium, troponin, and I will provide the patient with a dose of oral Ativan for her anxiety symptoms. - I independently interpreted the laboratory studies, which show no significant leukocytosis, anemia, or thrombocytopenia. The chemistry panel is without evidence of electrolyte abnormality, kidney dysfunction, or liver injury. Troponin was negative, and without interval increase on 1 hour recheck. The patient reports that her anxiety persists, and she remains slightly tachycardic. I did have an extended discussion with her regarding any events that occurred today, and in doing so it becomes clear that the patient has not taken any baclofen today. Withdrawal symptoms from baclofen could certainly explain some of the symptoms that she is having, and so I ordered a dose of 20 mg p.o. which is the patient's home dose, which she typically takes 3 times per day. At this time she has missed 2 doses. She will also receive a liter of IV fluids. I discussed this case with the oncoming provider, and recommended that she be reevaluated after baclofen has had time to kick in. I note that her tachycardia is improving slightly, down to the 110s rather than the 120s. I anticipate that if this patient's symptoms improved after baclofen dosing that she would be safe for discharge to home, and counseled her to take all of her medications as prescribed. All further care per the oncoming provider. Rajni Moses MD Quality:SDOH Health Related Social Needs: Health related social needs details . PFSH All Active Problems (Updated 11/03/24 @ 15:50 by Rajni Moses MD) Withdrawal syndrome (Acute) CHILD CARE ASSISTANT (ventriculoperitoneal) shunt status (Acute) Headache (Acute) Obesity (Chronic) Snoring (Acute) Fatigue (Acute) Pre-diabetes (Acute) Impacted cerumen, right ear (Acute) Hyperlipidemia (Acute) Hyperreflexia (Acute) Neuropathic pain (Acute) Asthma (Chronic) Incisional hernia of anterior abdominal wall without obstruction or gangrene (Acute) Anxiety with depression (Acute) Somatoform disorder (Acute) Unspecified disorder of eye movements (Acute) Learning disability (Acute) Chronic GERD (Acute) Hiatal hernia (Chronic) Carpal tunnel syndrome of right wrist (Acute) Chronic pain disorder (Chronic) Other specified polyneuropathies (Acute) 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) Increased body mass index (BMI) (Acute) Leg cramping (Acute) Firmness of abdomen (Acute) URI (upper respiratory infection) (Acute) Dysuria (Acute) Follicular lymphoma (Acute) COVID-19 (Acute) Medical History H/O migraine Dandy-Walker syndrome Verruca warts (infectious) Hydrocephalus s/p CHILD CARE ASSISTANT shunting, revision at age 1 PTSD (post-traumatic stress disorder) Small bowel obstruction PCOS (polycystic ovarian syndrome) Surgical History H/O esophagogastroduodenoscopy (~05/09/10) [facility] [place]/P CHILD CARE ASSISTANT shunt (~05/09/08) Last revision 2008 History of placement of ear tubes Family History Mother No problems noted. Father No problems noted. Maternal Grandfather No problems noted. Paternal Grandfather No problems noted. Maternal Grandmother No problems noted. Paternal Grandmother No problems noted. Social History Smoking/Tobacco Use Status: Never Second Hand Exposure: Yes Smoking risk assessment performed?: Yes Alcohol Intake: never Drug use: Never Substance use type: does not use Counseling given: No Counseling provided: none Household members: spouse Housing: other Pets and animals: Yes Pets and animals: cat(s) How often do you talk on the phone with friends or family?: three or more times per week How often do you get together with friends or relatives?: three or more times per week Do you belong to any clubs or organized social groups?: no Panel score (0-1 are the most socially isolated patients): 1 What type of physical activity do you participate in: none Do you feel safe at home: Yes Do you feel safe in your relationship?: Yes
[2024-11-03] MEDS: LORazepam 1 MG TAB PO (13:22)
[2024-11-03 13:29] LABS: Abs Immature Grans 0.03 10^3/uL (0.0-0.06); Absolute Basophil Count 0.01 10^3/uL (0.0-0.2); Absolute Lymphocyte Count 0.71 10^3/uL (1.2-3.4); Absolute Monocyte Count 0.24 10^3/uL (0.1-0.8); Basophils % 0.1 %; HCT 42.7 % (36.0-46.0); HGB 13.9 g/dL (11.2-15.7); Immature Grans % 0.3 %; Lymphocytes % 7.6 %; MCH 27.9 pg (27.0-33.0); MCHC 32.6 % (32.0-36.0); MCV 86 fL (80-95); MPV 10.1 fL (8.0-11.0); Monocytes % 2.6 %; Neutrophils % 89.4 %; Platelet Count 361 10^3/uL (130-400); RBC 4.99 10^6/uL (3.93-5.22); RDW 13.6 % (11.7-14.6); RDW-SD 42.4 fL; WBC 9.39 10^3/uL (4.4-10.8)
[2024-11-03 14:29] LABS: ALT 41 U/L (14-59); AST 19 U/L (15-37); Albumin 4.2 g/dL (3.4-5.0); Alkaline Phosphatase 153 U/L (46-116); Anion Gap 15.3 mmol/L (3-11); BUN 10 mg/dL (7-18); Bilirubin, Total 0.3 mg/dL (0.2-1.0); CO2 22.7 mmol/L (21.0-32.0); CREATININE 0.7 mg/dL (0.55-1.02); Calcium 9.4 mg/dL (8.5-10.1); Chloride 104 mmol/L (98-107); Estimated GFR 107.95 (mL/min/1.73m2); Glucose 155 mg/dL (74-106); Magnesium 1.9 mg/dL (1.8-2.4); Potassium 4.2 mmol/L (3.5-5.1); Sodium 142 mmol/L (136-145); Total Protein 8.3 g/dL (6.4-8.2)
[2024-11-03 14:38] LABS: Troponin I < 4 ng/L (<or=51)
[2024-11-03 14:54] LABS: Troponin I < 4 ng/L (<or=51)
[2024-11-03] MEDS: Baclofen 10 MG TAB 20 MG PO (15:26)
[2024-11-03] MEDS: Lactated Ringers 1,000 ML 1000 ML IV (15:49)
--- NOTE | 2024-11-03 16:00 | ED.FU.B_ITS ---
Follow Up Plan: Handoff report received from Dr Davis, daytime attending. Please see her note for full HPI, PE, and interpretation of labs. In short, Radha is a 44 y/o female who presented to the ED this afternoon for anxiety accompanied by CP and tachycadia. She had been evaluated earlier in the day for migraine BECKWITH, treated successfully with migraine cocktail. Today missed 2 doses of her prescribed baclofen. While in ED received IV fluids, home baclofen dose, and anxiolytic. Workup overall reassuring, including serial troponins. Pt signed out to me pen ding completion of IV fluids and awaiting baclofen to take effect. I did briefly assess Radha, who reports that she continues to have some sternal chest discomfort. She does admit to missing her dose of esomeprazole this morning, says she was unsure if she would be able to take it after having the Compazine for migraine. She does remain tachycardic, with heart rate in the 100s. D-dimer was performed to evaluate for PE, this was negative. GI cocktail and pantoprazole IV administered with good resolution of chest pain and improvement of tachycardia. Heart rate in the 99-100 range at discharge. Overall workup today reassuring. Tachycardia likely due to baclofen withdrawal/GERD, anxiety also likely contributing Reviewed discharge instructions with patient, including symptomatic management, use of regularly prescribed medications at home, and red flags indicate need for return to emergency care. She voices agreement with plan of care.
--- NOTE | 2024-11-03 16:22 | NUR.NOTE ---
Per provider 3rd hour trop not needed and can be DCdNursing Note:
[2024-11-03 17:29] LABS: D-Dimer 497 ng/mlFEU (<500)
[2024-11-03] MEDS: MYLANTA 30 ML, LIDOCAINE 2% VISCOUS UD 15 ML PO (18:05)
[2024-11-03] MEDS: Pantoprazole 40 MG VIAL IVP (18:05)
== END 2024-11-03 18:31 | disposition home or self-care (01) ==
PROVIDERS: Emergency Medicine; Emergency Provider Nurse Practitioner Family; PCP Nurse Practitioner Family
DX: F19.930 Other psychoactive substance use, unspecified with withdrawal, uncomplicated (principal); F41.8 Other specified anxiety disorders; Q03.1 Atresia of foramina of Magendie and Luschka; Z98.2 Presence of cerebrospinal fluid drainage device
CPT/HCPCS: 36415; 80053; 93005; 96361; 96374; 99284; 83735; 84484; 85025; 85379; 93010; J2470

== ENCOUNTER → 2024-12-13 12:39 | Outpatient (BNVA) | payer MEDICARE, SELFPAY | PROVIDERS: PCP Nurse Practitioner Family; Referring Provider Nurse Practitioner Family; Visit Provider Psychiatry & Neurology Neurology | DX: M79.2 Neuralgia and neuritis, unspecified (principal); J45.909 Unspecified asthma, uncomplicated; E11.9 Type 2 diabetes mellitus without complications | CPT/HCPCS: 99215; G2212 ==

== ENCOUNTER → 2025-03-04 07:48 | Outpatient (BNVA) | payer MEDICARE, SELFPAY | PROVIDERS: PCP Nurse Practitioner Family; Referring Provider Nurse Practitioner Family; Visit Provider Podiatrist | DX: M76.822 Posterior tibial tendinitis, left leg (principal); M21.41 Flat foot [pes planus] (acquired), right foot; M21.42 Flat foot [pes planus] (acquired), left foot; M79.672 Pain in left foot; Z59.87 Material hardship due to limited financial resources, not elsewhere classified | CPT/HCPCS: 99214 ==